=== PATIENT | female | born 1970 | race Caucasian/White ===

== ENCOUNTER 2022-12-28 08:20 | Outpatient (RCR) | payer BC, SELFPAY | END 2023-01-20 16:38 | disposition home or self-care (01) | LOC: PT 08:20 | PROVIDERS: PCP Nurse Practitioner Family; Visit Provider Podiatrist Foot & Ankle Surgery | DX: M19.071 Primary osteoarthritis, right ankle and foot (principal); M25.371 Other instability, right ankle | CPT/HCPCS: 97110; 97140; 97530 ==

== ENCOUNTER 2023-02-13 10:09 | Outpatient (OUT) | payer SELFPAY ==
--- NOTE | 2023-02-13 10:12 | XR_ITS ---
[address] [address] Patient Name: LAWRENCE LIZAMA MRN: [id number] date: 1970 Sex: F Assigned Patient Location: [facility] Current Patient Location: [facility] Accession/Order Number: [id number] Exam Date: 02/13/2023 10:12 Report Date: 02/13/2023 19:02 At the request of: LOS VENTURA Procedure: XR ankle RT min 3V PROCEDURE: XR ankle RT min 3V, XR foot RT min 3V COMPARISON: 12/19/2022 HISTORY: RIGHT ANKLE PAIN FINDINGS: BONES:Stable subtalar fusion with 2 cannulated screws. Stable talonavicular fusion with a single screw. Fusion of the medial hindfoot midfoot with a medial plate and screws. Surgical staple base of the second tarsometatarsal joint SOFT TISSUES:Moderate diffuse ankle soft tissue swelling EFFUSION:None visible. OTHER: Negative. XR/XR ankle RT min 3V IMPRESSION: Stable postsurgical changes Electronically authenticated by: BARBARA HERNANDEZ Date: 02/13/2023 19:02
--- NOTE | 2023-02-13 10:12 | XR_ITS ---
[address] [address] Patient Name: LAWRENCE LIZAMA MRN: [id number] date: 1970 Sex: F Assigned Patient Location: [facility] Current Patient Location: [facility] Accession/Order Number: [id number] Exam Date: 02/13/2023 10:12 Report Date: 02/13/2023 19:02 At the request of: LOS VENTURA Procedure: XR foot RT min 3V PROCEDURE: XR ankle RT min 3V, XR foot RT min 3V COMPARISON: 12/19/2022 HISTORY: RIGHT ANKLE PAIN FINDINGS: BONES:Stable subtalar fusion with 2 cannulated screws. Stable talonavicular fusion with a single screw. Fusion of the medial hindfoot midfoot with a medial plate and screws. Surgical staple base of the second tarsometatarsal joint SOFT TISSUES:Moderate diffuse ankle soft tissue swelling EFFUSION:None visible. OTHER: Negative. XR/XR foot RT min 3V IMPRESSION: Stable postsurgical changes Electronically authenticated by: BARBARA HERNANDEZ Date: 02/13/2023 19:02
== END 2023-02-13 10:10 | disposition home or self-care (01) ==
LOC: RAD 10:09
PROVIDERS: PCP Nurse Practitioner Family; Visit Provider Podiatrist Foot & Ankle Surgery
DX: M19.071 Primary osteoarthritis, right ankle and foot (principal)
CPT/HCPCS: 73610; 73630

== ENCOUNTER 2023-02-21 21:46 | Emergency (ER) | payer SELFPAY ==
[2023-02-21 21:51] VITALS: BP 151/90; PULSE 88; RESP 22; TEMP 36.4; O2SAT 95; BMI 31.9
--- NOTE | 2023-02-21 22:05 | ECG_ITS ---
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
--- NOTE | 2023-02-21 22:27 | ED.ANXIETY1 ---
HPI - Anxiety General Chief Complaint: Anxiety Stated Complaint: ANXIETY Time Seen by Provider: 02/21/23 22:04 Source: patient Mode of arrival: walk-in Limitations: no limitations History of Present Illness HPI narrative: 53-year-old female with a history of anxiety and insomnia presents for evaluation stating that she is out of her amitriptyline 100 mg and feels like she is having withdrawal symptoms with dizziness, sweatiness, nausea and one episode of vomiting. She took her last dose last night around 9 PM. She states that she did not have any money to get it filled but it is at the pharmacy and she has money now and will get it filled tomorrow. She denies any suicidal or homicidal ideation. She refuses any Zofran stating that she has at home. She does request some clear soda to drink. She has no chest pain, shortness of breath, dizziness syncope abdominal pain. Related Data Allergies Allergy/AdvReac Type Severity Reaction Status Date / Time No Known Drug Allergies Allergy Verified 02/21/23 21:57 Review of Systems ROS Status of ROS 10 or more systems reviewed and unremarkable except as noted in history and below Exam Narrative Exam Narrative: Nurses note and vital signs reviewed and patient is not hypoxic. General: Anxious, nontoxic female, no respiratory distress, no active vomiting Skin: Warm, dry, no pallor noted. There is no rash noted. Head: Normocephalic, atraumatic Eye: Normal conjunctiva, no drainage, EOMI. PERRL Ears, Nose, Mouth, and Throat: oral mucosa is moist. Cardiovascular: Regular Rate and Rhythm S1S2, no murmur, rub or gallop Respiratory: Patient is in no distress, no accessory muscle use, lungs are clear to auscultation, no wheezing, rales or rhonchi, pulse ox normal at 95% on RA Back: non-tender, no CVA tenderness bilaterally to percussion. GI: Normal bowel sounds, no tenderness to palpation, no masses appreciated. No rebound, guarding, or rigidity noted. Musculoskeletal: The patient has no evidence of calf tenderness, no pitting edema, symmetrical pulses noted bilaterally Neurological: A&O x4, normal speech Psychiatric: Cooperative Constitutional Vital Signs, click to edit/add: Last Vital Signs Temp 97.5 F L 02/21/23 21:51 Pulse 93 H 02/21/23 22:58 Resp 2 L 07/26/23 22:58 BP 110/80 H 02/21/23 22:58 Pulse Ox 95 02/21/23 22:58 O2 Del Method Room Air 02/21/23 22:58 Course Vital Signs Vital signs: Vital Signs Temperature 97.5 F L 02/21/23 21:51 Pulse Rate 88 02/21/23 21:51 Respiratory Rate 22 02/21/23 21:51 Blood Pressure 151/90 H 02/21/23 21:51 Pulse Oximetry 95 02/21/23 21:51 Oxygen Delivery Method Room Air 02/21/23 21:51 Temperature 97.5 F L 02/21/23 21:51 Pulse Rate 93 H 02/21/23 22:58 Respiratory Rate 2 L 02/21/23 22:58 Blood Pressure 110/80 H 02/21/23 22:58 Pulse Oximetry 95 02/21/23 22:58 Oxygen Delivery Method Room Air 02/21/23 22:58 MDM - Anxiety MDM Narrative Medical decision making narrative: This 53-year-old female with a history of anxiety and insomnia who takes venlafaxine as well as amitriptyline presents for evaluation stating that she feels like she is having withdrawal symptoms from her amitriptyline and is clammy, sweaty, anxious and had one episode of nausea with vomiting. Her vital signs are stable. Her lungs are clear. She denies any suicidal or homicidal ideation. She states that she does have a prescription for her amitriptyline at the pharmacy and has the money to pick it up tomorrow. She was given one dose of amitriptyline to take at home for her anxiety and insomnia and discharged home. A chest x-ray was performed at triage due to her complaint of feeling clammy and sweaty. His is normal sinus rhythm at 80 beats for minute with no acute changes. ECG Data Attestation: I personally reviewed and interpreted this ECG as follows: (Sinus rhythm at 80 beats for minute, low voltage in chest leads, no acute ST segment elevation or T-wave inversion) Discharge Plan Discharge Chief Complaint: Anxiety Clinical Impression: Medication withdrawal, Acute anxiety Patient Disposition: Home, Self-Care Time of Disposition Decision: 22:30 Condition: Good Mode of Transportation: Private Vehicle Instructions: Anxiety (ED) Additional Instructions: Continue your prescribed medications tomorrow after getting them refilled. Stand Alone Forms: Portal Instructions Referrals: KEL MONTGOMERY [Primary Care Provider] - 1 week Discharge Date/Time: 02/21/23 23:00
[2023-02-21 22:35] VITALS: PULSE 81
[2023-02-21] MEDS: AMITRIPTYLINE HCL 50 MG TABLET 100 MG PO (22:52)
[2023-02-21 22:58] VITALS: BP 110/80; PULSE 93; RESP 2; O2SAT 95
== END 2023-02-21 23:00 | disposition home or self-care (01) ==
PROVIDERS: Emergency Provider Emergency Medicine; PCP Nurse Practitioner Family
DX: F19.239 Other psychoactive substance dependence with withdrawal, unspecified (principal); F41.9 Anxiety disorder, unspecified; G47.00 Insomnia, unspecified
CPT/HCPCS: 93005; 99283

== ENCOUNTER 2023-02-26 16:41 | Emergency (ER) | payer SELFPAY ==
[2023-02-26] VITALS (17 sets, daily range): BP systolic 102–157; BP diastolic 66–131; PULSE 72–121; RESP 9–27; TEMP 36.5; O2SAT 99–100; BMI 31.9
--- NOTE | 2023-02-26 17:09 | XR_ITS ---
The [address] [address] Patient Name: LAWRENCE LIZAMA MRN: [id number] date: 1970 Sex: F Assigned Patient Location: ER Current Patient Location: ER Accession/Order Number: [id number] Exam Date: 02/26/2023 17:30 Report Date: 02/26/2023 17:52 At the request of: MARLENE JOAQUIN Procedure: XR chest 1V EXAM: XR chest 1V HISTORY: chest pain COMPARISON: None. TECHNIQUE: AP portable study FINDINGS: The cardiovascular silhouette is normal. Lung monk are well-expanded and clear. Pleural spaces are clear. The bony structures are unremarkable. XR/XR chest 1V IMPRESSION: No evidence for acute cardiopulmonary disease. Electronically authenticated by: Elizabeth INFANTE Date: 02/26/2023 17:52
--- NOTE | 2023-02-26 17:09 | ECG_ITS ---
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
[2023-02-26 17:52] LABS: Basophils Percent Auto 0.4 % (0.2-2.0); Eosinophils Percent Auto 0.1 % (0.9-7.0); Hematocrit 45.3 % (36.0-48.0); Hemoglobin 15.1 g/dL (12.0-16.0); Immature Granulocytes Abs Auto 0.01 10^3/uL (0.00-0.03); Immature Granulocytes Pct Auto 0.1 % (0.0-0.5); Lymphocytes Percent Auto 29.9 % (20.5-60.0); Mean Corpuscular HGB Conc 33.3 g/dL (29.9-35.2); Mean Corpuscular Hemoglobin 27.3 pg (26.7-34.0); Mean Corpuscular Volume 81.8 fL (81.0-99.0); Mean Platelet Volume 10.2 fL (9.5-13.5); Monocytes Absolute Auto 0.5 10^3/uL (0.3-0.8); Monocytes Percent Auto 7.6 % (1.7-12.0); Neutrophils Absolute Auto 4.1 10^3/uL (1.4-6.5); Neutrophils Percent Auto 61.9 % (43.0-75.0); Platelet Count 392 10^3/uL (150-450); Red Blood Count 5.54 10^6/uL (4.20-5.40); Red Cell Distribution Width 13.1 % (11.0-15.0); White Blood Count 6.7 10^3/uL (4.0-11.0)
[2023-02-26 18:10] LABS: Alanine Aminotransferase 18 U/L (14-59); Albumin Globulin Ratio 1.3; Albumin Level 4.7 g/dL (3.4-5.0); Alkaline Phosphatase 130 U/L (46-116); Anion Gap 17.9; Aspartate Amino Transferase 23 U/L (15-37); BUN Creatinine Ratio 16.6; Bilirubin Total 0.4 mg/dL (0.2-1.0); Calcium 10.3 mg/dL (8.5-10.1); Carbon Dioxide 22.1 mmol/L (21.0-32.0); Chloride 95 mmol/L (98-107); Estimated GFR (African America 40 (>=60); Estimated GFR (Non-African Ame 33 (>=60); Globulin 3.6 g/dL; Glucose 74 mg/dL (74-106); Sodium 131 mmol/L (136-145); Total Protein 8.3 g/dL (6.4-8.2)
[2023-02-26 18:12] LABS: Troponin I High Sensitivity 7.7 pg/mL (4.0-51.3)
[2023-02-26] MEDS: 0.9 % SODIUM CHLORIDE 1,000 ML 1000 ML IV (18:35)
--- NOTE | 2023-02-26 18:36 | ED.GENADUL1 ---
HPI - General Adult General Chief complaint: Chest Pain Stated complaint: headache Time Seen by Provider: 02/26/23 17:36 Source: patient Mode of arrival: walk-in Limitations: no limitations History of Present Illness HPI narrative: Patient is a 3 day history of lightheaded, dizziness, midsternal chest pain, pain with deep inspiration, sore throat, sweatiness to her upper lip and neck. No sick contacts that we are aware of. Patient stated that she had similar symptoms several years ago, approximately 3-5 years ago, she was in [place] and she was having chest pain at that time. Patient stated that she was admitted to the hospital, and they ended up performing a cardiac catheter that showed no acute narrowing or findings. Patient states she has not been eating or drinking as much last 2 or 3 days, she's had nothing to eat today, but she did have Powerade and water today. Patient states she has a history of acid reflux, she does say medication for that. She's had a EGD before as well. Patient's nurse practitioner is Kel Avila. Patient has no other acute complaints, no recent traveling, no sick contacts. Patient has not been coughing. Patient's had no heavy lifting, twisting or turning. She's had no trauma. . All systems are negative except as noted/marked. All systems reviewed and otherwise negative. . Nurses note and vital signs reviewed and patient is not hypoxic. General: The patient appears well and in no apparent distress. Patient is resting comfortably on cart. Patient is not toxic, lethargic, or listless Skin: Warm, dry, no pallor noted. There is no rash noted. No petechiae, purpura. Scars to her right foot from previous surgeries, no signs of infection. Head: Normocephalic, atraumatic Eye: Normal conjunctiva, no drainage, EOMI. PERRL Ears, Nose, Mouth, and Throat: oral mucosa is moist. Nares patent. Mouth without vesicles. Cardiovascular: Regular Rate and Rhythm, no murmur, gallop, rub; Patient does have reproducible sternal and parasternal tenderness to palpation to the anterior chest wall, no rash. With range of motion of both shoulders, and taking both arms and abducting across her chest, it reproduces the pain to the chest wall anteriorly. Patient displaying signs and symptoms of costochondritis. Respiratory: Patient is in no distress, no accessory muscle use, lungs are clear to auscultation, no wheezing, rales or rhonchi Back: non-tender, no CVA tenderness bilaterally to percussion. No CT LS midline pain GI: soft, no tenderness to palpation, no masses appreciated. No rebound, guarding, or rigidity noted. No flank pain bilateral, No distention Musculoskeletal: Patient has full range of motion of all of the extremities, no motor, sensory, or focal neurological deficits Neurological: A&O x3, normal speech Psychiatric: Cooperative Related Data Home Medications Medication Instructions Recorded Confirmed amitriptyline 100 mg tablet 100 mg PO QDAY 02/26/23 02/26/23 lisinopril 20 mg tablet 20 mg PO QDAY 02/26/23 02/26/23 venlafaxine 75 mg capsule,extended 75 mg PO QDAY 02/26/23 02/26/23 release 24 hr Previous Rx's Medication Instructions Recorded ondansetron 4 mg disintegrating 4 mg PO Q4H PRN nausea and 02/26/23 tablet vomiting 3 days #6 tabs Allergies Allergy/AdvReac Type Severity Reaction Status Date / Time Latex, Natural Rubber Allergy Severe Rash Verified 02/26/23 16:56 PFSH PFSH Social History Smoking status: Former smoker Exam Constitutional Vital Signs, click to edit/add: Last Vital Signs Temp 97.7 F 02/26/23 16:56 Pulse 86 02/26/23 18:50 Resp 9 L 02/26/23 18:50 BP 115/80 02/26/23 18:31 Pulse Ox 99 02/26/23 17:02 O2 Del Method Room Air 02/26/23 16:56 Course Vital Signs Vital signs: Vital Signs Temperature 97.7 F 02/26/23 16:56 Pulse Rate 92 H 02/26/23 16:56 Respiratory Rate 16 02/26/23 16:56 Blood Pressure 102/75 02/26/23 16:56 Pulse Oximetry 100 02/26/23 16:56 Oxygen Delivery Method Room Air 02/26/23 16:56 Temperature 97.7 F 02/26/23 16:56 Pulse Rate 86 02/26/23 18:50 Respiratory Rate 9 L 02/26/23 18:50 Blood Pressure 115/80 02/26/23 18:31 Pulse Oximetry 99 07/31/23 17:02 Oxygen Delivery Method Room Air 02/26/23 16:56 Medical Decision Making Lab Data Lab results reviewed: Yes I reviewed the patient's lab results Labs: Lab Results 02/26/23 Range/Units 17:15 WBC 6.7 (4.0-11.0) 10^3/uL RBC 5.54 H (4.20-5.40) 10^6/uL Hgb 15.1 (12.0-16.0) g/dL Hct 45.3 (36.0-48.0) % MCV 81.8 (81.0-99.0) fL MCH 27.3 (26.7-34.0) pg MCHC 33.3 (29.9-35.2) g/dL RDW 13.1 (11.0-15.0) % Plt Count 392 (150-450) 10^3/uL MPV 10.2 (9.5-13.5) fL Neut % (Auto) 61.9 (43.0-75.0) % Lymph % (Auto) 29.9 (20.5-60.0) % [place] % (Auto) 7.6 (1.7-12.0) % Eos % (Auto) 0.1 L (0.9-7.0) % Baso % (Auto) 0.4 (0.2-2.0) % Neut # (Auto) 4.1 (1.4-6.5) 10^3/uL Lymph # (Auto) 2.0 (1.2-3.8) 10^3/uL [place] # (Auto) 0.5 (0.3-0.8) 10^3/uL Eos # (Auto) 0.0 (0.0-0.7) 10^3/uL Baso # (Auto) 0.0 (0.0-0.1) 10^3/uL Abs Immat Gran (auto) 0.01 (0.00-0.03) 10^3/uL Imm/Tot Granulo (auto) 0.1 (0.0-0.5) % Sodium 131 L (136-145) mmol/L Potassium 4.0 (3.5-5.1) mmol/L Chloride 95 L (98-107) mmol/L Carbon Dioxide 22.1 (21.0-32.0) mmol/L Anion Gap 17.9 BUN 27.0 H (7.0-18.0) mg/dL Creatinine 1.63 H (0.55-1.02) mg/dL Est GFR ( Amer) 40 L (>=60) Est GFR (Non-Af Amer) 33 L (>=60) BUN/Creatinine Ratio 16.6 Glucose 74 (74-106) mg/dL Calcium 10.3 H (8.5-10.1) mg/dL Total Bilirubin 0.4 (0.2-1.0) mg/dL AST 23 (15-37) U/L ALT 18 (14-59) U/L Alkaline Phosphatase 130 H (46-116) U/L Troponin I High Sens 7.7 (4.0-51.3) pg/mL Total Protein 8.3 H (6.4-8.2) g/dL Albumin 4.7 (3.4-5.0) g/dL Globulin 3.6 g/dL Albumin/Globulin Ratio 1.3 Patient was given 1 L of IV fluid to help replace sodium and also help with elevation of BUN/creatinine. Patient understands importance of hydration in the next 2 or 3 days, especially Gatorade or Powerade. Patient was told by 2 or 3 large bottles of the Gatorade and drink them in the next 2 days. Patient is to increase water as well. Patient will follow-up with her nurse practitioner next week as scheduled appointment. Patient is very clear that if she does not increase her fluids and Gatorade or prior to next couple of days, she will be returning back to the Emergency Room because her symptoms will get worse and she'll be admitted to the hospital for IV fluids. Discharge Plan Discharge Chief Complaint: Chest Pain Clinical Impression: Dizziness, Dysphagia, Dyspnea, Atypical chest pain, Hyponatremia Patient Disposition: Home, Self-Care Condition: Good Prescriptions / Home Meds: New ondansetron 4 mg tablet,disintegrating 4 mg PO Q4H PRN (Reason: nausea and vomiting) 3 Days Qty: 6 0RF No Action amitriptyline 100 mg tablet 100 mg PO QDAY lisinopril 20 mg tablet 20 mg PO QDAY venlafaxine 75 mg capsule,extended release 24hr 75 mg PO QDAY Instructions: Chest Pain (ED), Dyspnea (ED), Lightheadedness (ED), Dizziness (ED), Chest Wall Pain (ED), Dysphagia (ED) Additional Instructions: Increase fluids at home, or Powerade, Gatorade. continue antacid medication. Drink 2 or 3 large Gatorade or Powerade bottles in the next 2 or 3 days along with drinking at least 8 ounces of water a day for the next 2 or 3 days. Use Maalox or Mylanta at home if needed for any type of acid reflux or heartburn. Follow up with nurse practitioner next week for additional follow-up if needed. Stand Alone Forms: Portal Instructions Referrals: KEL MONTGOMERY [Primary Care Provider] - 1 week Discharge Date/Time: 02/26/23 19:49
== END 2023-02-26 19:49 | disposition home or self-care (01) ==
LOC: ER 18:41
PROVIDERS: Emergency Provider Emergency Medicine; PCP Nurse Practitioner Family
DX: R07.89 Other chest pain (principal); E87.1 Hypo-osmolality and hyponatremia; R42 Dizziness and giddiness; R13.10 Dysphagia, unspecified; R06.00 Dyspnea, unspecified; Z79.899 Other long term (current) drug therapy; Z87.891 Personal history of nicotine dependence
CPT/HCPCS: 36415; 36416; 71045; 80053; 82948; 84484; 85025; 93005; 99285

== ENCOUNTER 2023-05-22 15:30 | Outpatient (OUT) | payer SELFPAY ==
--- NOTE | 2023-05-22 | XR_ITS ---
The [address] [address] Patient Name: LAWRENCE LIZAMA MRN: [id number] date: 1970 Sex: F Assigned Patient Location: [facility] Current Patient Location: [facility] Accession/Order Number: [id number] Exam Date: 05/22/2023 15:45 Report Date: 05/24/2023 06:45 At the request of: LOS VENTURA Procedure: XR foot RT min 3V PROCEDURE: XR ankle RT min 3V, XR foot RT min 3V HISTORY: RIGHT ANKLE PAIN , right forefoot reconstruction COMPARISON: XR ankle right 02/13/2023 FINDINGS: BONES:Talocalcaneal fusion. Medial midfoot fusion. No hardware fracture or loosening. No bone fracture dislocation. Prior bone harvesting from distal tibia. SOFT TISSUES:Soft tissue swelling anterior to the ankle. EFFUSION:None visible. OTHER: Negative. XR/XR foot RT min 3V IMPRESSION: 1. Stable surgical changes without evidence of hardware failure or change in alignment. 2. No new or acute findings to account for patient's symptoms. Electronically authenticated by: TERI KAY Date: 05/24/2023 06:45
--- NOTE | 2023-05-22 | XR_ITS ---
The [address] [address] Patient Name: LAWRENCE LIZAMA MRN: [id number] date: 1970 Sex: F Assigned Patient Location: [facility] Current Patient Location: [facility] Accession/Order Number: [id number] Exam Date: 05/22/2023 15:38 Report Date: 05/24/2023 06:45 At the request of: LOS VENTURA Procedure: XR ankle RT min 3V PROCEDURE: XR ankle RT min 3V, XR foot RT min 3V HISTORY: RIGHT ANKLE PAIN , right forefoot reconstruction COMPARISON: XR ankle right 02/13/2023 FINDINGS: BONES:Talocalcaneal fusion. Medial midfoot fusion. No hardware fracture or loosening. No bone fracture dislocation. Prior bone harvesting from distal tibia. SOFT TISSUES:Soft tissue swelling anterior to the ankle. EFFUSION:None visible. OTHER: Negative. XR/XR ankle RT min 3V IMPRESSION: 1. Stable surgical changes without evidence of hardware failure or change in alignment. 2. No new or acute findings to account for patient's symptoms. Electronically authenticated by: TERI KAY Date: 05/24/2023 06:45
== END 2023-05-22 15:31 | disposition home or self-care (01) ==
LOC: RAD 15:30
PROVIDERS: PCP Nurse Practitioner Family; Visit Provider Podiatrist Foot & Ankle Surgery
DX: M25.371 Other instability, right ankle (principal); M21.171 Varus deformity, not elsewhere classified, right ankle
CPT/HCPCS: 73610; 73630

== ENCOUNTER 2023-05-31 08:49 | Outpatient (OUT) | payer SELFPAY ==
--- NOTE | 2023-05-31 09:18 | CT_ITS ---
[address] [address] Patient Name: LAWRENCE LIZAMA MRN: [id number] date: 1970 Sex: F Assigned Patient Location: CT Current Patient Location: CT Accession/Order Number: [id number] Exam Date: 05/31/2023 09:12 Report Date: 05/31/2023 13:23 At the request of: LOS VENTURA Procedure: CT ankle RT wo con EXAMINATION: CT ankle RT wo con HISTORY: Mid Foot Degenerative Joint Disease, Ankle Impingement COMPARISON: No relevant comparison available. TECHNIQUE: Multi-planar CT images were created without IV contrast. Dose reduction techniques were achieved by using automated exposure control and/or adjustment of mA and/or kV according to patient size and/or use of iterative reconstruction technique. FINDINGS: BONES: No acute fracture or dislocation. Remote healed fracture distal fibular diaphysis. Moderate to severe diffuse degenerative changes. Subtalar fusion with 2 screws. Dorsal fusion of the midfoot hindfoot with a plate and screws. Talonavicular fusion. No definite mechanical failure. SOFT TISSUES: Diffuse soft tissue swelling EFFUSION: None visible. OTHER: Negative. CT/CT ankle RT wo con IMPRESSION: Stable degenerative and postsurgical changes Electronically authenticated by: BARBARA HERNANDEZ Date: 05/31/2023 13:23
== END 2023-05-31 08:50 | disposition home or self-care (01) ==
LOC: CT 08:49
PROVIDERS: PCP Nurse Practitioner Family; Visit Provider Podiatrist Foot & Ankle Surgery
DX: M25.871 Other specified joint disorders, right ankle and foot (principal); M19.071 Primary osteoarthritis, right ankle and foot
CPT/HCPCS: 73700

== ENCOUNTER 2023-08-01 11:47 | Outpatient (OUT) | payer SELFPAY ==
--- NOTE | 2023-08-01 | XR_ITS ---
The [address] [address] Patient Name: LAWRENCE LIZAMA MRN: [id number] date: 1970 Sex: F Assigned Patient Location: [facility] Current Patient Location: [facility] Accession/Order Number: [id number] Exam Date: 08/01/2023 11:55 Report Date: 08/01/2023 12:53 At the request of: ARIE PARKINSON Procedure: XR ankle RT min 3V PROCEDURE: XR ankle RT min 3V COMPARISON: 05/22/2023 HISTORY: RIGHT ANKLE PAIN FINDINGS: BONES:Stable postsurgical changes with subtalar and midfoot hindfoot fusion. No acute fracture, dislocation or mechanical failure stable degenerative changes . SOFT TISSUES:Diffuse soft tissue swelling, unchanged EFFUSION:None visible. OTHER: Negative. XR/XR ankle RT min 3V IMPRESSION: Stable degenerative and postsurgical changes Electronically authenticated by: BARBARA HERNANDEZ Date: 08/01/2023 12:53
--- OUTSIDE RECORDS SUMMARY | 2023-08-01 11:50 | XMS_ITS | CCD ---
Author Name Unknown Address [address] [place] [address] Organization [facility] Care Team Providers Care Urologist Md Name Role Phone Rai Alvarenga Unavailable KEL MONTGOMERY Primary Care Unavailable LOS VENTURA Attending Unavailable LOS VENTURA Consulting Unavailable LOS VENTURA Admitting Unavailable DALTON ALVARENGA Consulting Unavailable KEL MONTGOMERY Primary Care Unavailable LOS VENTURA Admitting Unavailable LOS VENTURA Attending Unavailable DR MELISSA NONE LISTED Primary Care Unavaila laura HERNANDEZ, DR BARBARA Greer Consulting Unavailable SAMIERERandy, DR DANA Martinez Admitting Unavailable SAMIERERandy, DR DANA Martinez Attending Unavailable MULUGETA, DR DANA Martinez Consulting Unavailable LOS VENTURA Consulting Unavailable EZIO ., MARY MIKE Consulting Unavailable ZAC II, JODI Consulting Unavailable BORIS PITTMAN Consulting Unavailable KEL MONTGOMERY Primary Care Unavailable ALEXANDER ., DR JASIEL Hutchinson Admitting Unavaila ble ALEXANDER ., DR JASIEL Hutchinson Attending Unavaila ble ALEXANDER ., DR JASIEL Hutchinson Consulting UnavailKEL Lai Primary Care Unavailable KEL MONTGOMERY Admitting Unavailable KEL MONTGOMERY Attending Unavailable ADRIANA KIM Admitting Unavailable DR MELISSA NONE LISTED Primary Care Unavaila ble DAVID, DR BARBARA Greer Consulting Unavailable ADRIANA KIM Attending Unavailable ADRIANA KIM Consulting Unavailable KEL MONTGOMERY Primary Care Unavailable ALEXANDER ., DR JASIEL Hutchinson Admitting Unavaila ble GRDAVEY ., DR JASIEL Hutchinson Attending Unavaila ble ALEXANDER ., DR JASIEL Hutchinson Consulting Unavaila JASIEL Avealr Consulting Unavailable ESPERANZA LAMAR Consulting Unavailable SUSIE KEMP Consulting Unavailable KEL MONTGOMERY Primary Care Unavailable ADRIANA KIM Admitting Unavailable ADRIANA KIM Attending Unavailable ADRIANA KIM Consulting Unavailable LARISSA CHOI Consulting Unavailable MELISSA, NONE LISTED Primary Care Unavaila ble HIGHLANDER, PETER Bibi Consulting Unavailable HIGHLANDER, PETER D Admitting Unavailable HIGHLANDER, LOS Mtz Attending Unavailable MARIOLA INFANTE Consulting Unavailable REQUEST, DR NONE LISTED Primary Care Unavaila ble HIGHLANDER, PETER D Admitting Unavailable HIGHLANDER, PETER D Attending Unavailable ZIEBER, DR TERI Padilla Consulting Unavailable HIGHLANDER, LOS Mtz Consulting Unavailable REQUEST, DR NONE LISTED Primary Care Unavaila ble HOY ., DR BUTLER Consulting Unavailable HOY ., DR BUTLER Admitting Unavailable HOY ., DR BUTLER Attending Unavailable NEEL WEBBER Consulting Unavailable VALENTINA, KEL Primary Care Unavailable VALENTINA, KEL Admitting Unavailable VALENTINA, KEL Attending Unavailable VALENTINA, KEL Primary Care Unavailable VALENTINA, KEL Admitting Unavailable VALENTINA, KEL Attending Unavailable VALENTINA, KEL Consulting Unavailable COLETTE, RAI Admitting Unavailable COLETTE, RAI Attending Unavailable VALENTINA, KEL Primary Care Unavailable COLETTERAI Consulting Unavailable VALENTINA, KEL Primary Care Unavailable HIGHLANDER, PETER D Attending Unavailable HIGHLANDER, LOS D Consulting Unavailable HIGHLANDER, PETER D Admitting Unavailable VALENTINA, KEL Primary Care Unavailable HIGHLANDER, LOS D Attending Unavailable HIGHLANDER, PETER D Admitting Unavailable WEST, DR BARBARA Greer Consulting Unavailable HIGHLANDER, LOS Mtz Consulting Unavailable VALENTINA, KEL Primary Care Unavailable GRILLIS ., DR JASIEL Hutchinson Consulting Unavaila ble GRILLIS ., DR JASIEL Hutchinson Admitting Unavaila ble GRILLIS ., DR JASIEL Hutchinson Attending Unavaila ble VALENTINA, KEL Primary Care Unavailable GRILLIS ., DR JASIEL Hutchinson Admitting Unavaila ble GRILLIS ., DR JASIEL Hutchinson Attending Unavaila ble GRILLIS ., DR JASIEL Hutchinson Consulting Unavaila ble GIOVANNA, OLLIE JOY Consulting Unava ilESPERANZA Moody Consulting Unavailable VALENTINA, KEL Primary Care Unavailable HIGHLANDER, PETER D Attending Unavailable HIGHLANDER, LOS D Consulting Unavailable HIGHLANDER, PETER D Admitting Unavailable VALENTINA, KEL Primary Care Unavailable HIGHLANDER, PETER D Admitting Unavailable HIGHLANDER, PETER D Attending Unavailable VALENTINA, KEL Primary Care Unavailable HOY ., DR BUTLER Admitting Unavailable HOY ., DR BUTLER Attending Unavailable ADRIANA KIM Admitting Unavailable RAHUL, DR TERI Padilla Consulting Unavailable REQUEST, DR NONE LISTED Primary Care Unavaila ble ADRIANA KIM Attending Unavailable ADRIANA KIM Consulting Unavailable Allergies Allergy Classification Reported Allergen(s) Allergy Type Date of Onset Reaction(s) Facility (3 sources) Aspirin Drug Allergy Unknown [facility] Other (3 sources) Latex Propensity to adverse reactions Unknown [facility] Other (2 sources) Aspirin Drug Allergy [facility] (2 sources) Latex Drug allergy (disorder) [facility] Medications Current Medications Medication Drug Class(es) Dates Sig (Normalized) Sig (Original) amitriptyline hydrochloride 50 mg oral tablet (3 sources) Tricyclic Antidepressant take 1 tablet by mouth every twenty-four hours Amitriptyline HCl 50 MG 1 tablet at bedtime Orally Once a day Active cholecalciferol 1.25 mg oral capsule (2 sources) Vitamin D take 1 capsule by mouth every week Vitamin D3 1.25 MG (55494 UT) 1 capsule Orally once per week Active lisinopril 20 mg oral tablet (3 sources) Angiotensin Converting Enzyme Inhibitor take 1 tablet by mouth every twenty-four hours Lisinopril 20 MG 1 tablet Orally Once a day Active meloxicam 15 mg oral tablet (3 sources) Nonsteroidal Anti-inflammatory Drug take 1 tablet by mouth every twenty-four hours Meloxicam 15 MG 1 tablet Orally Once a day Active 24 hr venlafaxine 75 mg extended release oral capsule (6 sources) Serotonin and Norepinephrine Reuptake Inhibitor take 1 capsule by mouth every twenty-four hours Effexor XR 150 MG 1 capsule with food Orally Once a day Active take 1 capsule by mo uth every twenty-four hours Effexor XR 75 MG 1 capsule with food Orally Once a day Active Completed/Discontinued Medications Medication Drug Class(es) Dates Sig (Normalized) Sig (Original) triamcinolone acetonide 40 mg/ml injectable suspension (2 sources) Corticosteroid Start: 01-27-2022 Kenalog-40 Jan, 40 mg Problems Active Problems Problem Classification Problem Date Documented Da te Episodic/Chronic Acquired foot deformities (10 sources) Valgus deformity, not elsewhere classified, right ankle; Translations: [Varus deformity, not elsewhere classified, right ankle] Onset: 08-29-2022 Episodic Essential hypertension (1 source) Essential (primary) hypertension; Translations: [ESSENTIAL PRIMARY HYPERTENSION] Onset: 08-29-2022 Chronic Malaise and fatigue (1 source) Weakness; Translations: [WEAKNESS] Onset: 11-20-2022 Episodic Osteoarthritis (9 sources) Primary osteoarthritis, right ankle and foot; Translations: [Unspecified osteoarthritis, unspecified site] Onset: 05-08-2022 Chronic Other acquired deformities (1 source) Contracture, right ankle; Translations: [CONTRACTURE RIGHT ANKLE] Onset: 08-29-2022 Chronic Other ear and sense organ disorders (1 source) Unspecified hearing loss, unspecified ear; Translations: [UNS HEARING LOSS UNSPECIFIED EAR] Onset: 05-24-2022 Chronic Other gastrointestinal disorders (3 sources) Constipation; Translations: [Constipation, unspecified] Episodic Other gastrointestinal disorders (3 sources) Altered bowel function; Translations: [Change in bowel habit] Episodic Other nervous system disorders (3 sources) Carpal tunnel syndrome of left wrist; Translations: [Carpal tunnel syndrome, left upper limb] Chronic Other nervous system disorders (3 sources) Carpal tunnel syndrome of right wrist; Translations: [Carpal tunnel syndrome, right upper limb] Chronic Other nervous system disorders (3 sources) Carpal tunnel syndrome; Translations: [Carpal tunnel syndrome, unspecified upper limb] Chronic Other nervous system disorders (7 sources) Carpal tunnel syndrome, left upper limb; Translations: [CARPAL TUNNEL SYND LEFT UPPER LIMB] Onset: 10-31-2021 Resolved: 02-03-2022 Chronic Other nervous system disorders (1 source) Carpal tunnel syndrome, right upper limb Onset: 10-31-2021 Resolved: 10-31-2021 Chronic Other nervous system disorders (1 source) Unspecified abnormalities of gait and mobility; Translations: [UNS ABNORMALITIES GAIT AND MOBILITY] Onset: 11-20-2022 Episodic Other nervous system disorders (1 source) Other abnormalities of gait and mobility; Translations: [OTHER ABNORMALITIES GAIT AND MOBILITY] Onset: 11-20-2022 Episodic Other non-traumatic joint disorders (1 source) Other instability, right ankle; Translations: [OTHER INSTABILITY RIGHT ANKLE] Onset: 11-14-2022 Episodic Other nutritional; endocrine; and metabolic disorders (1 source) Obesity, unspecified; Translations: [OBESITY UNSPECIFIED] Onset: 05-24-2022 Chronic Unclassified (1 source) CONTACT W/AND (SUSP) EXPOS COVID-19; Translations: [CONTACT W/AND (SUSP) EXPOS COVID-19] Onset: 08-10-2022 Unclassified (1 source) ESOPHAGITIS UNSPEC WITHOUT BLEEDING; Translations: [ESOPHAGITIS UNSPEC WITHOUT BLEEDING] Onset: 05-24-2022 Past or Other Problems Problem Classification Problem Date Documented Da te Episodic/Chronic Abdominal pain (5 sources) Unspecified abdominal pain; Translations: [UNSPECIFIED ABDOMINAL PAIN] Onset: 05-17-2022 Episodic Gastritis and duodenitis (1 source) Other gastritis without bleeding; Translations: [OTHER GASTRITIS WITHOUT BLEEDING] Onset: 05-24-2022 Episodic Gastrointestinal hemorrhage (5 sources) Hemorrhage of anus and rectum; Translations: [HEMORRHAGE OF ANUS AND RECTUM] Onset: 05-24-2022 Episodic Genitourinary symptoms and ill-defined conditions (2 sources) Personal history of urinary (tract) infections; Translations: [Other difficulties with micturition] Onset: 08-29-2022 Episodic Nausea and vomiting (1 source) Nausea; Translations: [NAUSEA] Onset: 05-24-2022 Episodic Other acquired deformities (1 source) Mallet finger of left finger(s) Onset: 10-31-2021 Resolved: 10-31-2021 Episodic Other acquired deformities (1 source) Other specified acquired deformities of musculoskeletal system; Translations: [OTHER SPEC ACQ DEFORMITY MSK SYS] Onset: 08-29-2022 Episodic Other circulatory disease (4 sources) Other specified symptoms and signs involving the circulatory and respiratory systems; Translations: [OTH SPEC SX SIGNS INVLV CIRC RS] Onset: 06-28-2022 Episodic Other connective tissue disease (1 source) Trochanteric bursitis, right hip Onset: 01-27-2022 Resolved: 01-27-2022 Episodic Other connective tissue disease (1 source) Trigger finger, right middle finger Onset: 02-03-2022 Resolved: 02-03-2022 Episodic Other connective tissue disease (4 sources) Pain in right foot; Translations: [PAIN IN RIGHT FOOT] Onset: 09-07-2022 Episodic Other connective tissue disease (1 source) Posterior tibial tendinitis, right leg; Translations: [POSTERIOR TIBIAL TENDINITIS RT LEG] Onset: 08-29-2022 Episodic Other non-traumatic joint disorders (1 source) Pain in right hip Onset: 01-27-2022 Resolved: 01-27-2022 Episodic Other non-traumatic joint disorders (1 source) Other specified joint disorders, right ankle and foot; Translations: [OTHER SPEC JOINT D/O RT ANKLE FOOT] Onset: 08-29-2022 Episodic Residual codes; unclassified (2 sources) Other specified postprocedural states Onset: 01-27-2022 Resolved: 02-03-2022 Episodic Residual codes; unclassified (1 source) Acquired absence of both cervix and uterus; Translations: [ACQUIRED ABSENCE BOTH CERVIX AND UTERUS] Onset: 08-29-2022 Episodic Residual codes; unclassified (1 source) Acquired absence of uterus with remaining cervical stump; Translations: [ACQ ABSENCE UTRUS REM CERV STUMP] Onset: 05-24-2022 Episodic Screening and history of mental health and substance abuse codes (1 source) Personal history of nicotine dependence; Translations: [PERSONAL HISTORY OF NICOTINE DEPEND] Onset: 08-29-2022 Episodic Urinary tract infections (5 sources) Urinary tract infection, site not specified; Translations: [UTI SITE NOT SPECIFIED] Onset: 05-11-2022 Episodic Results Test Name Value Interpretation Reference Range Facility XR FOOT RT MIN 3 VIEWSon XR FOOT RT MIN 3 VIEWS EXAM: XR FOOT RT MIN 3 VIEWS HISTORY: Pain in right foot COMPARISON: 10/18/2022 TECHNIQUE: 4 view study FINDINGS: Again, there are findings associated with previous subtalar, talonavicular, and medial and middle naviculocuneiform arthrodesis. Alignment is unchanged compared with the study of one month ago. The subtalar joint is less well-defined than was seen previously. Mild osteopenia generally is noted. IMPRESSION: Stable appearance of the hindfoot/midfoot arthrodesis. Electronically authenticated by: Elizabeth INFANTE Date: 2022-11-10 23:57 Normal [facility] US KIDNEYS BLADDERon 023 US KIDNEYS BLADDER US KIDNEYS BLADDER EXAM DATE: 09/23/2022 6:34 AM [facility] COMPARISON: None available. INDICATION: Recurrent UTI. TECHNIQUE: Real-time ultrasound scanning of the kidneys and bladder was performed by the environmental specialist. Content Development Specialist static images are submitted for review. FINDINGS: Right Kidney: The right kidney measures 10.6 x 5 x 6.1 cm and has a volume of 186 mL. Normal echogenicity. No hydronephrosis. No shadowing calculi. No obvious contour deforming lesion or solid renal mass. Renal cortex measures 1.6 cm. Left Kidney: Views of the left kidney are extremely limited due to bowel gas. The left kidney measures approximately 11.7 x 5.2 x 4.3 cm and has a volume of 136 mL. No definite hydronephrosis. Renal cortex measures 1 cm. Bladder: Bladder volume measures up to 723 mL. Post void residual measures less than 1 mL. No focal or diffuse bladder wall thickening noted. Bilateral ureteral jets are visualized. IMPRESSION: 1. Limited views of the left kidney although no hydronephrosis is identified. Bilateral ureteral jets are visualized. 2. No significant post-void bladder residual. Electronically authenticated by: NEEL WEBBER Date: 2022-09-23 14:49 Normal [facility] CBC AUTO DIFFon 08-15-2022 BASO # 0.0 103/ul Normal 0.0-0.1 [facility] Comment on above: Performed By: #### C BC #### [facility] [address] [address] [address] Arianna Hamlin Basophils/100 WBC (Bld) 0.3 % Normal 0.2-2.0 [facility] Comment on above: Performed By: #### C BC #### [facility] [address] [address] [address] Arianna Hamlin EO # 0.0 103/ul Normal 0.0-0.7 [facility] Comment on above: Performed By: #### C BC #### [facility] [address] [address] [address] Arianna Hamlin Eosinophils/100 WBC (Bld) 0.1 % Critically low 0.9-7.0 [facility] Comment on above: Performed By: #### C BC #### [facility] [address] [address] [address] Arianna Hamlin Erythrocyte distribution width (RBC) [Ratio] 12.2 % Normal 11.0-15.0 [facility] Comment on above: Performed By: #### C BC #### [facility] [address] [place] [address] Dr. Arianna Hamlin Hematocrit (Bld) [Volume fraction] 35.9 % Critically low 36.0-48.0 [facility] Comment on above: Performed By: #### C BC #### [facility] [address] [address] [address] Arianna Hamlin Hemoglobin (Bld) [Mass/Vol] 12.0 g/dL Normal 12.0-16.0 [facility] Comment on above: Performed By: #### C BC #### [facility] [address] [address] [address] Arianna Hamlin IG # 0.02 10e3/ul Normal 0.00-0.03 [facility] Comment on above: Performed By: #### C BC #### [facility] [address] [place] [address] Dr. Arianna Hamlin IG % 0.3 % Normal 0.0-0.5 [facility] Comment on above: Performed By: #### C BC #### [facility] [address] [place] [address] Dr. Arianna Hamlin LYMPH # 1.8 103/ul Normal 1.2-3.8 [facility] Comment on above: Performed By: #### C BC #### [facility] [address] [place] [address] Dr. Arianna Hamlin Lymphocytes/100 WBC (Bld) 22.8 % Normal 20.5-60.0 [facility] Comment on above: Performed By: #### C BC #### [facility] [address] [place] [address] Dr. Arianna Hamlin MANUAL DIFF REQ NO Normal [facility] Comment on above: Performed By: #### C BC #### [facility] [address] [place] [address] Dr. Arianna Hamlin MCH (RBC) [Entitic mass] 27.8 pg Normal 26.7-34.0 [facility] Comment on above: Performed By: #### C BC #### [facility] [address] [place] [address] Dr. Arianna Hamlin MCHC (RBC) [Mass/Vol] 33.4 g/dL Normal 29.9-35.2 [facility] Comment on above: Performed By: #### C BC #### [facility] [address] [address] [address] Arianna Hamlin MCV (RBC) [Entitic vol] 83.1 fL Normal 81.0-99.0 [facility] Comment on above: Performed By: #### C BC #### [facility] [address] [address] [address] Arianna Hamlin MONO # 0.9 103/ul Critically high 0.3-0.8 [facility] Comment on above: Performed By: #### C BC #### [facility] [address] [address] [address] Arianna Hamlin Monocytes/100 WBC (Bld) 10.8 % Normal 1.7-12.0 [facility] Comment on above: Performed By: #### C BC #### [facility] [address] [place] [address] Dr. Arianna Hamlin NEUT # 5.2 103/ul Normal 1.4-6.5 [facility] Comment on above: Performed By: #### C BC #### [facility] [address] [place] [address] Dr. Arianna Hamlin Neutrophils/100 WBC (Bld) 65.7 % Normal 43.0-75.0 [facility] Comment on above: Performed By: #### C BC #### [facility] [address] [place] [address] Dr. Arianna Hamlin Platelet mean volume (Bld) [Entitic vol] 10.2 fL Normal 9.5-13.5 [facility] Comment on above: Performed By: #### C BC #### [facility] [address] [place] [address] Dr. Arianna Hamlin PLT 243 103/ul Normal 150-450 [facility] Comment on above: Performed By: #### C BC #### [facility] [address] [address] [address] Arianna Hamlin RBC 4.32 106/ul Normal 4.20-5.40 [facility] Comment on above: Performed By: #### C BC #### [facility] [address] [address] [address] Arianna Hamlin WBC 7.9 103/ul Normal 4.0-11.0 [facility] Comment on above: Performed By: #### C BC #### [facility] [address] [address] [address] Arianna Hamlin PROF CHEM 8 (BAS METB)on Anion gap [Moles/Vol] 10.8 mmol/L Normal [facility] Comment on above: Performed By: #### B MP #### [facility] [address] [place] [address] Dr. Arianna Hamlin Calcium [Mass/Vol] 9.0 mg/dL Normal 8.5-10.1 [facility] Comment on above: Performed By: #### B MP #### [facility] [address] [place] [address] Dr. Arianna Hamlin Chloride [Moles/Vol] 101 mmol/L Normal 98-107 [facility] Comment on above: Performed By: #### B MP #### [facility] [address] [place] [address] Dr. Arianna Hamlni CO2 [Moles/Vol] 30.8 mmol/L Normal 21.0-32.0 [facility] Comment on above: Performed By: #### B MP #### [facility] [address] [place] [address] Dr. Arianna Hamlin Creatinine [Mass/Vol] 0.79 mg/dL Normal 0.55-1.02 [facility] Comment on above: Performed By: #### B MP #### [facility] [address] [place] [address] Dr. Arianna Hamlin EGFR-AF [place] >60 Normal >=60 [facility] Comment on above: Performed By: #### B MP #### [facility] [address] [place] [address] Dr. Arianna Hamlin EGFR-NON AF [place] >60 Normal >=60 [facility] Comment on above: Performed By: #### B MP #### [facility] [address] [place] [address] Dr. Arianna Hamlin Glucose [Mass/Vol] 110 mg/dL Critically high 74-106 [facility] Comment on above: Performed By: #### B MP #### [facility] [address] [place] [address] Dr. Arianna Hamlin Potassium [Moles/Vol] 3.6 mmol/L Normal 3.5-5.1 [facility] Comment on above: Performed By: #### B MP #### [facility] [address] [address] [address] Arianna Hamlin Sodium [Moles/Vol] 139 mmol/L Normal 136-145 [facility] Comment on above: Performed By: #### B MP #### [facility] [address] [place] [address] Dr. Arianna Hamlin Urea nitrogen [Mass/Vol] 8.0 mg/dL Normal 7.0-18.0 [facility] Comment on above: Performed By: #### B MP #### [facility] [address] [place] [address] Dr. Arianna Hamlin Urea nitrogen/Creatinine [Mass ratio] 10.1 mg/mg Normal [facility] Comment on above: Performed By: #### B MP #### [facility] [address] [place] [address] Dr. Arianna Hamlin UA RANDOMon 08-15-2022 Bilirubin Ql (U) Negative Normal NEGATIVE [facility] Comment on above: Performed By: #### C BC #### [facility] [address] [place] [address] Dr. Arianna Hamlin Clarity (U) CLEAR Normal CLEAR [facility] Comment on above: Performed By: #### C BC #### [facility] [address] [place] [address] Dr. Arianna Hamlin Glucose Ql (U) Negative Normal NEGATIVE [facility] Comment on above: Performed By: #### C BC #### [facility] [address] [place] [address] Dr. Arianna Hamlin Hemoglobin Ql (U) Negative Normal NEGATIVE [facility] Comment on above: Performed By: #### C BC #### [facility] [address] [address] [address] Arianna Hamlin Ketones Ql (U) Negative Normal NEGATIVE [facility] Comment on above: Performed By: #### C BC #### [facility] [address] [place] [address] Dr. Arianna Hamlin LEUKOCYTES MODERATE Abnormal NEGATIVE [facility] Comment on above: Performed By: #### C BC #### [facility] [address] [place] [address] Dr. Arianna Hamlin Nitrite Ql (U) Negative Normal NEGATIVE [facility] Comment on above: Performed By: #### C BC #### [facility] [address] [place] [address] Dr. Arianna Hamlin pH (U) 7.0 [pH] Normal 5-9 [facility] Comment on above: Performed By: #### C BC #### [facility] [address] [place] [address] Dr. Arianna Hamlin SPEC GRAVITY 1.010 Normal 1.005-<=1.025 [facility] Comment on above: Performed By: #### C BC #### [facility] [address] [place] [address] Dr. Arianna Hamlin UA PROTEIN Negative Normal NEGATIVE/ TRACE [facility] Comment on above: Performed By: #### C BC #### [facility] [address] [place] [address] Dr. Arianna Hamlin Urobilinogen Qn (U) 0.2 {Ayden'U}/dL Normal 0.2 - 1. 0 [facility] Comment on above: Performed By: #### C BC #### [facility] [address] [place] [address] Dr. Arianna Hamlin XR FOOT RT 2Von 08-15-2022 XR FOOT RT 2V EXAM: XR FOOT RT 2V HISTORY: Pain COMPARISON: 06/20/2022 TECHNIQUE: 3 minutes of fluoroscopy. 41 fluoroscopic images FINDINGS: Fluoroscopic images demonstrate subtalar fusion with 2 screws. Medial midfoot hindfoot fusion utilizing a plate, surgical staple and multiple screws. Anatomic alignment. IMPRESSION: Intraprocedural images demonstrating medial foot and subtalar fusion Electronically authenticated by: BARBARA HERNANDEZ Date: 2022-08-15 08:59 Normal [facility] POINT OF CARE GLUCOSEon 07-30 Glucose [Mass/Vol] 138 mg/dL Critically high 74-106 [facility] Comment on above: Performed By: #### P OCGLUC #### [facility] [address] [place] [address] Dr. Arianna Hamlin Glucose [Mass/Vol] 94 mg/dL Normal 74-106 [facility] Comment on above: Performed By: #### P OCGLUC #### [facility] [address] [place] [address] Dr. Arianna Hamlin CBC AUTO DIFFon 08-08-2022 BASO # 0.0 103/ul Normal 0.0-0.1 [facility] Comment on above: Performed By: #### C BC #### [facility] [address] [place] [address] Dr. Arianna Hamlin Basophils/100 WBC (Bld) 0.7 % Normal 0.2-2.0 [facility] Comment on above: Performed By: #### C BC #### [facility] [address] [place] [address] Dr. Arianna Hamlin EO # 0.1 103/ul Normal 0.0-0.7 [facility] Comment on above: Performed By: #### C BC #### [facility] [address] [place] [address] Dr. Arianna Hamlin Eosinophils/100 WBC (Bld) 1.3 % Normal 0.9-7.0 [facility] Comment on above: Performed By: #### C BC #### [facility] [address] [place] [address] Dr. Arianna Hamlin Erythrocyte distribution width (RBC) [Ratio] 12.3 % Normal 11.0-15.0 [facility] Comment on above: Performed By: #### C BC #### [facility] [address] [place] [address] Dr. Arianna Hamlin Hematocrit (Bld) [Volume fraction] 38.4 % Normal 36.0-48.0 [facility] Comment on above: Performed By: #### C BC #### [facility] [address] [address] [address] Arianna Hamlin Hemoglobin (Bld) [Mass/Vol] 13.2 g/dL Normal 12.0-16.0 [facility] Comment on above: Performed By: #### C BC #### [facility] [address] [place] [address] Dr. Arianna Hamlin IG # 0.01 10e3/ul Normal 0.00-0.03 [facility] Comment on above: Performed By: #### C BC #### [facility] [address] [place] [address] Dr. Arianna Hamlin IG % 0.2 % Normal 0.0-0.5 [facility] Comment on above: Performed By: #### C BC #### [facility] [address] [place] [address] Dr. Arianna Hamlin LYMPH # 1.8 103/ul Normal 1.2-3.8 [facility] Comment on above: Performed By: #### C BC #### [facility] [address] [place] [address] Dr. Arianna Hamlin Lymphocytes/100 WBC (Bld) 30.8 % Normal 20.5-60.0 [facility] Comment on above: Performed By: #### C BC #### [facility] [address] [place] [address] Dr. Arianna Hamlin MANUAL DIFF REQ NO Normal [facility] Comment on above: Performed By: #### C BC #### [facility] [address] [place] [address] Dr. Arianna aHmlin MCH (RBC) [Entitic mass] 27.7 pg Normal 26.7-34.0 [facility] Comment on above: Performed By: #### C BC #### [facility] [address] [place] [address] Dr. Arianna Hamlin MCHC (RBC) [Mass/Vol] 34.4 g/dL Normal 29.9-35.2 [facility] Comment on above: Performed By: #### C BC #### [facility] [address] [address] [address] Arianna Hamlin MCV (RBC) [Entitic vol] 80.7 fL Critically low 81.0-99.0 [facility] Comment on above: Performed By: #### C BC #### [facility] [address] [address] [address] Arianna Hamlin MONO # 0.4 103/ul Normal 0.3-0.8 [facility] Comment on above: Performed By: #### C BC #### [facility] [address] [address] [address] Arianna Hamlin Monocytes/100 WBC (Bld) 7.1 % Normal 1.7-12.0 [facility] Comment on above: Performed By: #### C BC #### [facility] [address] [place] [address] Dr. Arianna Hamlin NEUT # 3.6 103/ul Normal 1.4-6.5 [facility] Comment on above: Performed By: #### C BC #### [facility] [address] [place] [address] Dr. Arianna Hamlin Neutrophils/100 WBC (Bld) 59.9 % Normal 43.0-75.0 [facility] Comment on above: Performed By: #### C BC #### [facility] [address] [place] [address] Dr. Arianna Hamlin Platelet mean volume (Bld) [Entitic vol] 9.5 fL Normal 9.5-13.5 [facility] Comment on above: Performed By: #### C BC #### [facility] [address] [place] [address] Dr. Arianna Hamlin PLT 248 103/ul Normal 150-450 [facility] Comment on above: Performed By: #### C BC #### [facility] [address] [place] [address] Dr. Arianna Hamlin RBC 4.76 106/ul Normal 4.20-5.40 [facility] Comment on above: Performed By: #### C BC #### [facility] [address] [place] [address] Dr. Arianna Hamlin WBC 5.9 103/ul Normal 4.0-11.0 [facility] Comment on above: Performed By: #### C BC #### [facility] [address] [place] [address] Dr. Arianna Hamlin Covid-19 PCR ([facility])on 07-30 SARS-CoV-2 (COVID-19) RNA RICHARD+probe Ql (Unsp spec) Not detected Normal NOT DETECTED [facility] Comment on above: Result Comment: This test is not yet approved or cleared by the [place] FDA. When there are no FDA-approved or cleared tests available, and other criteria are met, FDA can make tests available under an emergency access mechanism called an Emergency Use Authorization (EUA). The EUA for this test is supported by the Traffic Line Painter of Health and Human Service's (HHS's) declaration that circumstances exist to justify the emergency use of in vitro diagnostics for the detection and/or diagnosis of the virus that causes COVID-19. This EUA will remain in effect (meaning this test can be used) for the duration of the COVID-19 declaration justifying emergency of IVDs, unless it is terminated or revoked by FDA (after which the test may no longer be used). When diagnostic testing is negative, the possibility of a false negative should be considered in the context of a patient's recent exposures and the presence of clinical signs and symptoms consistent with SARS-CoV-2. Performed By: #### C VDTBH #### [facility] [address] [place] [address] Dr. Arianna Hamlin PROF CHEM 8 (BAS METB)on Anion gap [Moles/Vol] 10.1 mmol/L Normal [facility] Comment on above: Performed By: #### B MP #### [facility] [address] [place] [address] Dr. Arianna Hamlin Calcium [Mass/Vol] 9.2 mg/dL Normal 8.5-10.1 [facility] Comment on above: Performed By: #### B MP #### [facility] [address] [place] [address] Dr. Arianna Hamlin Chloride [Moles/Vol] 103 mmol/L Normal 98-107 [facility] Comment on above: Performed By: #### B MP #### [facility] [address] [address] [address] Arianna Hamlin CO2 [Moles/Vol] 30.7 mmol/L Normal 21.0-32.0 [facility] Comment on above: Performed By: #### B MP #### [facility] [address] [address] [address] Arianna Hamlin Creatinine [Mass/Vol] 0.86 mg/dL Normal 0.55-1.02 [facility] Comment on above: Performed By: #### B MP #### [facility] [address] [place] [address] Dr. Arianna Hamlin EGFR-AF [place] >60 Normal >=60 [facility] Comment on above: Performed By: #### B MP #### [facility] [address] [address] [address] Arianna Hamlin EGFR-NON AF [place] >60 Normal >=60 [facility] Comment on above: Performed By: #### B MP #### [facility] [address] [address] [address] Arianna Hamlin Glucose [Mass/Vol] 77 mg/dL Normal 74-106 [facility] Comment on above: Performed By: #### B MP #### [facility] [address] [address] [address] Arianna Hamlin Potassium [Moles/Vol] 3.8 mmol/L Normal 3.5-5.1 [facility] Comment on above: Performed By: #### B MP #### [facility] [address] [address] [address] Arianna Hamlin Sodium [Moles/Vol] 140 mmol/L Normal 136-145 [facility] Comment on above: Performed By: #### B MP #### [facility] [address] [address] [address] Arianna Hamlin Urea nitrogen [Mass/Vol] 8.0 mg/dL Normal 7.0-18.0 [facility] Comment on above: Performed By: #### B MP #### [facility] [address] [place], [place] [address] Dr. Arianna Hamlin Urea nitrogen/Creatinine [Mass ratio] 9.3 mg/mg Normal [facility] Comment on above: Performed By: #### B MP #### [facility] [address] [place], [place] [address] Dr. Arianna Hamlin Covid-19 PCR ([facility])on SARS-CoV-2 (COVID-19) RNA RICHARD+probe Ql (Unsp spec) Not detected Normal NOT DETECTED [facility] Comment on above: Result Comment: This test is not yet approved or cleared by the [place] FDA. When there are no FDA-approved or cleared tests available, and other criteria are met, FDA can make tests available under an emergency access mechanism called an Emergency Use Authorization (EUA). The EUA for this test is supported by the Traffic Line Painter of Health and Human Service's (HHS's) declaration that circumstances exist to justify the emergency use of in vitro diagnostics for the detection and/or diagnosis of the virus that causes COVID-19. This EUA will remain in effect (meaning this test can be used) for the duration of the COVID-19 declaration justifying emergency of IVDs, unless it is terminated or revoked by FDA (after which the test may no longer be used). When diagnostic testing is negative, the possibility of a false negative should be considered in the context of a patient's recent exposures and the presence of clinical signs and symptoms consistent with SARS-CoV-2. Performed By: #### B MP #### [facility] [address] [place], [place] [address] Dr. Arianna Hamlin MRI ANKLE RT WO CONon 2021 MRI ANKLE RT WO CON EXAM: MRI ANKLE RT W O CON HISTORY: Dysfunction of posterior tibial tendon. Chronic pain. Posterior tibial tendon dysfunction. Osteoarthritis. COMPARISON: Right foot x-rays 06/14/2022. TECHNIQUE: Multiplanar multisequence MRI of the right ankle was performed without contrast. This included axial T1, axial T2, oblique axial PD fat-sat, coronal T1, coronal T2, sagittal T1, sagittal T2, and sagittal PD fat-sat. FINDINGS: JOINTS: There is subchondral cystic change at the far medial talar dome and adjacent aspect of the medial malleolus. Small tibiotalar joint effusion. There is scattered marginal spur across the mid/hindfoot particularly at the naviculocuneiform articulation with patchy subchondral edema along the naviculocuneiform articulations, calcaneocuboid joint, and fourth and fifth TMT joints. Marginal spur and subchondral cystic change involving the anterior subtalar joint. The AP talocalcaneal angle measures 43 degrees. The tarsometatarsal alignment appears preserved on this non-weightbearing study. The interosseous component of the Lisfranc ligament is identified and is intact. BONES: Scattered bone marrow edema across the midfoot, as above. No fracture is identified. LIGAMENTS: There is thickening of the ATFL suggesting scar from prior sprain. The calcaneofibular and posterior talofibular ligament appears intact. Mild distortion of the deep deltoid ligament suggesting scar from prior sprain. The anterior and posterior tibiofibular ligaments are intact. TENDONS: There is thickening of the inframalleolar segment of the tibialis posterior tendon without appreciable tear. Mild associated fluid in the tibialis posterior tendon sheath. Otherwise, flexor, extensor, and peroneal tendons appear preserved. Achilles tendon is intact. SINUS TARSI: Complete replacement of the normal fat signal in the sinus tarsi. PLANTAR FASCIA: Small plantar calcaneal spur. No adjacent soft tissue edema or bone marrow edema. No fascial tear. TARSAL TUNNEL: No mass lesion in tarsal tunnel is identified. SOFT TISSUES: Mild soft tissue swelling of the anterior medial aspect of the ankle. IMPRESSION: 1. Abnormal AP talocalcaneal angle suggesting hindfoot valgus. 2. There is moderate osteoarthritis at the medial tibiotalar joint with subchondral edema and subchondral cystic change. Lesser scattered osteoarthritis across the mid/hindfoot, as above with patchy subchondral edema particularly at the naviculocuneiform articulation, calcaneocuboid joint, and fourth and fifth TMT joints. No fracture. 3. Tendinosis of the distal tibialis posterior tendon with mild tenosynovitis. No well-defined tendon tear. 4. There is scar along the ATFL and deep deltoid ligament suggesting prior sprains. 5. 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 6. Chronic plantar fasciitis. Electronically authenticated by: DALTON ALVARENGA Date: 2022-06-24 12:09 Normal [facility] H PYLORI TISSUEon 05-17-2022 H PYL TISSUE, UREASE Negative Normal NEGATIVE [facility] Comment on above: Performed By: #### B MP #### [facility] [address] [place], [place] [address] Dr. Arianna Hamlin Covid-19 PCR ([facility])on 04-29 SARS-CoV-2 (COVID-19) RNA RICHARD+probe Ql (Unsp spec) Not detected Normal NOT DETECTED [facility] Comment on above: Result Comment: This test is not yet approved or cleared by the [place] FDA. When there are no FDA-approved or cleared tests available, and other criteria are met, FDA can make tests available under an emergency access mechanism called an Emergency Use Authorization (EUA). The EUA for this test is supported by the Traffic Line Painter of Health and Human Service's (HHS's) declaration that circumstances exist to justify the emergency use of in vitro diagnostics for the detection and/or diagnosis of the virus that causes COVID-19. This EUA will remain in effect (meaning this test can be used) for the duration of the COVID-19 declaration justifying emergency of IVDs, unless it is terminated or revoked by FDA (after which the test may no longer be used). When diagnostic testing is negative, the possibility of a false negative should be considered in the context of a patient's recent exposures and the presence of clinical signs and symptoms consistent with SARS-CoV-2. Performed By: #### C VDTBH #### [facility] [address] [place] [address] Dr. Arianna Hamlin FLORINA by IFAon 05-11-2022 Antinuclear Antibodies, IFA Negative Normal [facility] Comment on above: Result Comment: Nega tive <1:80 Borderline 1:80 Positive >1:80 ICAP nomenclature: AC-0 For more information about Hep-2 cell patterns use ANApatterns.org, the official website for the International Consensus on Antinuclear Antibody (FLORINA) Patterns (ICAP). Performed By: #### B MP #### [facility] [address] [address] [address] Arianna Hamlin CULTURE URINEon 05-11-2022 CULTURE URINE Isolate 1 Escherichia coli >100,000 cfu/mL of ORGANISM 1 Escherichia coli ANTIBIOTIC M.I.C RX STATUS Ampicillin 4 S C Ampicillin/Sulbactam <=2 S C Piperacillin/Tazobacta m <=4 S C Cefazolin <=4 S C Ceftazidime <=1 S C Ceftriaxone <=1 S C Ertapenem <=0.5 S C Imipenem <=0.25 S C Amikacin <=2 S C Gentamicin <=1 S C Tobramycin <=1 S C Ciprofloxacin <=0.25 S C Levofloxacin <=0.12 S C Nitrofurantoin <=16 S C Trimethoprim/Sulfameth oxazole <=20 S C Normal [facility] Comment on above: Performed By: #### C BC #### [facility] [address] [place] [address] Dr. Arianna Hamlin ANTISTREPTOLYSIN O AB (ASO)o n 05-10-2022 Antistreptolysin O Ab 45.8 IU/mL Normal 0.0-200.0 [facility] Comment on above: Performed By: #### C BC #### [facility] [address] [place] [address] Dr. Arianna Hamlin RHEUMATOID FACTORon 05-10-20 22 RA Latex Turbid. <10.0 Normal <14.0 [facility] Comment on above: Performed By: #### B MP #### [facility] [address] [place] [address] Dr. Arianna Hamlin CRPon 05-08-2022 CRP [Mass/Vol] mg/L Normal <=1.0 [facility] Comment on above: Performed By: #### C BC #### [facility] [address] [place] [address] Dr. Arianna Hamlin UA RANDOM W/MICROSCOPICon BACTERIA LARGE Abnormal NONE SEEN [facility] Comment on above: Performed By: #### U AMIC #### [facility] [address] [place] [address] Dr. Arianna Hamlin Bilirubin Ql (U) Negative Normal NEGATIVE [facility] Comment on above: Performed By: #### U AMIC #### [facility] [address] [address] [address] Arianna Hamlin CAST NONE SEEN Normal NONE SEEN [facility] Comment on above: Performed By: #### U AMIC #### [facility] [address] [address] [address] Arianna Hamlin Clarity (U) CLEAR Normal CLEAR [facility] Comment on above: Performed By: #### U AMIC #### [facility] [address] [address] [address] Arianna Hamlin Color (U) LT. YELLOW Normal YELLOW [facility] Comment on above: Performed By: #### U AMIC #### [facility] [address] [address] [address] Arianna Hamlin Crystals LM Nom (Urine sed) NONE SEEN Normal NONE SEEN [facility] Comment on above: Performed By: #### U AMIC #### [facility] [address] [address] [address] Arianna Hamlin Epithelial cells LM Ql (Urine sed) FEW Abnormal NONE SEEN /RARE [facility] Comment on above: Performed By: #### U AMIC #### [facility] [address] [address] [address] Arianna Hamlin Glucose Ql (U) Negative Normal NEGATIVE [facility] Comment on above: Performed By: #### U AMIC #### [facility] [address] [address] [address] Arianna Hamlin Hemoglobin Ql (U) SMALL Abnormal NEGATIVE [facility] Comment on above: Performed By: #### U AMIC #### [facility] [address] [address] [address] Arianna Hamlin Ketones Ql (U) TRACE Abnormal NEGATIVE [facility] Comment on above: Performed By: #### U AMIC #### [facility] [address] [address] [address] Arianna Hamlin LEUKOCYTES MODERATE Abnormal NEGATIVE [facility] Comment on above: Performed By: #### U AMIC #### [facility] [address] [address] [address] Arianna Hamlin MUCOUS NONE SEEN Normal NONE SEEN [facility] Comment on above: Performed By: #### U AMIC #### [facility] [address] [address] [address] Arianna Hamlin Nitrite Ql (U) Positive Abnormal NEGATIVE [facility] Comment on above: Performed By: #### U AMIC #### [facility] [address] [address] [address] Arianna Hamlin pH (U) 6.0 [pH] Normal 5-9 [facility] Comment on above: Performed By: #### U AMIC #### [facility] [address] [place] [address] Dr. Arianna Hamlin RBC 2-5 Abnormal 0-2 [facility] Comment on above: Performed By: #### U AMIC #### [facility] [address] [place] [address] Dr. Arianna Hamlin SPEC GRAVITY >=1.030 Abnormal 1.005-<=1.025 [facility] Comment on above: Performed By: #### U AMIC #### [facility] [address] [address] [address] Arianna Hamlin UA PROTEIN Negative Normal NEGATIVE/ TRACE [facility] Comment on above: Performed By: #### U AMIC #### [facility] [address] [place] [address] Dr. Arianna Hamlin Urobilinogen Qn (U) 0.2 {Ayden'U}/dL Normal 0.2 - 1. 0 [facility] Comment on above: Performed By: #### U AMIC #### [facility] [address] [place] [address] Dr. Arianna Hamlin WBC 20-50 Abnormal NONE SEEN [facility] Comment on above: Performed By: #### U AMIC #### [facility] [address] [place] [address] Dr. Arianna Hamlin URIC ACID SERUMon 05-08-2022 Urate [Mass/Vol] 4.1 mg/dL Normal 2.6-6.0 [facility] Comment on above: Performed By: #### U BETY, CRP #### [facility] [address] [address] [address] Arianna Hamlin XR hip RT min 2V(w/wo pelvis )*on 01-27-2022 XR hip RT min 2V(w/wo pelvis)* [facility] [employer] [address] [place] [address] XRay Report Signed Patient: Simin Caro MR#: [id number] : 1970 Acct:[id number] Age/Sex: 51 / F ADM Date: 01/27/22 Loc: [facility] Room: Type: [facility] Attending Dr: Rai Alvarenga DO Copies to: Rai Alvarenga DO Ordering Provider: Rai Alvarenga DO Date of Service: 01/27/22 XR/XR hip RT min 2V(w/wo pelvis)*: Right hip pain LEFT HIP - 2 views: CLINICAL HISTORY: Right hip pain lateral aspect for one month. COMPARISON: None FINDINGS: No acute bony process. No focal soft tissue abnormality. Degenerative changes noted involving the visualized lower lumbar spine, SI joints and pubic symphysis. Minimal degenerative changes of the hips. XR/XR hip RT min 2V(w/wo pelvis)* IMPRESSION: DEGENERATIVE CHANGES OF THE BONY PELVIS WITHOUT ACUTE BONY PROCESS.. Impression dictated by: Fabio Oates Jr., D.OHarris01/27/2022 9:14 AM Dictation Location: [place] [address] Transcribed By: [facility] 01/27/22913 Dictated By: Fabio Oates Jr, DO 01/27/22 0910 Signed By: 01/27/22 0914 Normal [facility] CBC AUTO DIFFon 01-24-2022 BASO # 0.1 103/ul Normal 0.0-0.1 [facility] Comment on above: Performed By: #### C BC #### [facility] [address] [place], [place] [address] Dr. Arianna Hamlin Basophils/100 WBC (Bld) 0.9 % Normal 0.2-2.0 [facility] Comment on above: Performed By: #### C BC #### [facility] [address] [place] [address] Dr. Arianna Hamlin EO # 0.1 103/ul Normal 0.0-0.7 [facility] Comment on above: Performed By: #### C BC #### [facility] [address] [place] [address] Dr. Arianna Hamlin Eosinophils/100 WBC (Bld) 2.2 % Normal 0.9-7.0 [facility] Comment on above: Performed By: #### C BC #### [facility] [address] [place] [address] Dr. Arianna Hamlin Erythrocyte distribution width (RBC) [Ratio] 12.7 % Normal 11.0-15.0 [facility] Comment on above: Performed By: #### C BC #### [facility] [address] [place] [address] Dr. Arianna Hamlin Hematocrit (Bld) [Volume fraction] 42.6 % Normal 36.0-48.0 [facility] Comment on above: Performed By: #### C BC #### [facility] [address] [place] [address] Dr. Arianna Hamlin Hemoglobin (Bld) [Mass/Vol] 14.2 g/dL Normal 12.0-16.0 [facility] Comment on above: Performed By: #### C BC #### [facility] [address] [place] [address] Dr. Arianna Hamlin IG # 0.02 10e3/ul Normal 0.00-0.03 [facility] Comment on above: Performed By: #### C BC #### [facility] [address] [place] [address] Dr. Arianna Hamlin IG % 0.4 % Normal 0.0-0.5 [facility] Comment on above: Performed By: #### C BC #### [facility] [address] [place] [address] Dr. Arianna Hamlin LYMPH # 2.0 103/ul Normal 1.2-3.8 [facility] Comment on above: Performed By: #### C BC #### [facility] [address] [place] [address] Dr. Arianna Hamlin Lymphocytes/100 WBC (Bld) 38.1 % Normal 20.5-60.0 [facility] Comment on above: Performed By: #### C BC #### [facility] [address] [place] [address] Dr. Arianna Hamlin MANUAL DIFF REQ NO Normal [facility] Comment on above: Performed By: #### C BC #### [facility] [address] [place] [address] Dr. Arianna Hamlin MCH (RBC) [Entitic mass] 28.1 pg Normal 26.7-34.0 [facility] Comment on above: Performed By: #### C BC #### [facility] [address] [place] [address] Dr. Arianna Hamlin MCHC (RBC) [Mass/Vol] 33.3 g/dL Normal 29.9-35.2 [facility] Comment on above: Performed By: #### C BC #### [facility] [address] [place] [address] Dr. Arianna Hamlin MCV (RBC) [Entitic vol] 84.4 fL Normal 81.0-99.0 [facility] Comment on above: Performed By: #### C BC #### [facility] [address] [place] [address] Dr. Arianna Hamlin MONO # 0.4 103/ul Normal 0.3-0.8 [facility] Comment on above: Performed By: #### C BC #### [facility] [address] [place] [address] Dr. Arianna Hamlin Monocytes/100 WBC (Bld) 7.3 % Normal 1.7-12.0 [facility] Comment on above: Performed By: #### C BC #### [facility] [address] [place] [address] Dr. Arianna Hamlin NEUT # 2.7 103/ul Normal 1.4-6.5 [facility] Comment on above: Performed By: #### C BC #### [facility] [address] [place] [address] Dr. Arianna Hamlin Neutrophils/100 WBC (Bld) 51.1 % Normal 43.0-75.0 [facility] Comment on above: Performed By: #### C BC #### [facility] [address] [place] [address] Dr. Arianna Hamlin Platelet mean volume (Bld) [Entitic vol] 9.8 fL Normal 9.5-13.5 [facility] Comment on above: Performed By: #### C BC #### [facility] [address] [place] [address] Dr. Arianna Hamlin PLT 276 103/ul Normal 150-450 [facility] Comment on above: Performed By: #### C BC #### [facility] [address] [place] [address] Dr. Arianna Hamlin RBC 5.05 106/ul Normal 4.20-5.40 [facility] Comment on above: Performed By: #### C BC #### [facility] [address] [place] [address] Dr. Arianna Hamlin WBC 5.4 103/ul Normal 4.0-11.0 [facility] Comment on above: Performed By: #### C BC #### [facility] [address] [place] [address] Dr. Arianna Hamlin PROF 14(COMP METB)on 022 Albumin [Mass/Vol] 4.2 g/dL Normal 3.4-5.0 [facility] Comment on above: Performed By: #### B MP #### [facility] [address] [place] [address] Dr. Arianna Hamlin Albumin/Globulin [Mass ratio] 1.3 {ratio} Normal [facility] Comment on above: Performed By: #### B MP #### [facility] [address] [place] [address] Dr. Arianna Hamlin ALP [Catalytic activity/Vol] 92 U/L Normal 46-116 [facility] Comment on above: Performed By: #### B MP #### [facility] [address] [place] [address] Dr. Arianna Hamlin ALT [Catalytic activity/Vol] 25 U/L Normal 14-59 [facility] Comment on above: Performed By: #### B MP #### [facility] [address] [address] [address] Arianna Hamlin Anion gap [Moles/Vol] 10.4 mmol/L Normal [facility] Comment on above: Performed By: #### B MP #### [facility] [address] [address] [address] Arianna Hamlin AST [Catalytic activity/Vol] 20 U/L Normal 15-37 [facility] Comment on above: Performed By: #### B MP #### [facility] [address] [address] [address] Arianna Hamlin Bilirubin [Mass/Vol] 0.2 mg/dL Normal 0.2-1.0 [facility] Comment on above: Performed By: #### B MP #### [facility] [address] [place] [address] Dr. Arianna Hamlin Calcium [Mass/Vol] 9.0 mg/dL Normal 8.5-10.1 [facility] Comment on above: Performed By: #### B MP #### [facility] [address] [place] [address] Dr. Arianna Hamlin Chloride [Moles/Vol] 103 mmol/L Normal 98-107 [facility] Comment on above: Performed By: #### B MP #### [facility] [address] [address] [address] Arianna Hamlin CO2 [Moles/Vol] 29.7 mmol/L Normal 21.0-32.0 [facility] Comment on above: Performed By: #### B MP #### [facility] [address] [address] [address] Arianna Hamlin Creatinine [Mass/Vol] 0.87 mg/dL Normal 0.55-1.02 [facility] Comment on above: Performed By: #### B MP #### [facility] [address] [address] [address] Arianna Hamlin EGFR-AF [place] >60 Normal >=60 [facility] Comment on above: Performed By: #### B MP #### [facility] [address] [address] [address] Arianna Hamlin EGFR-NON AF [place] >60 Normal >=60 [facility] Comment on above: Performed By: #### B MP #### [facility] [address] [address] [address] Arianna Hamlin Globulin (S) [Mass/Vol] 3.3 g/dL Normal [facility] Comment on above: Performed By: #### B MP #### [facility] [address] [address] [address] Arianna Hamlin Glucose [Mass/Vol] 99 mg/dL Normal 74-106 [facility] Comment on above: Performed By: #### B MP #### [facility] [address] [address] [address] Arianna Hamlin Potassium [Moles/Vol] 4.1 mmol/L Normal 3.5-5.1 [facility] Comment on above: Performed By: #### B MP #### [facility] [address] [address] [address] Arianna Hamlin Protein [Mass/Vol] 7.5 g/dL Normal 6.4-8.2 [facility] Comment on above: Performed By: #### B MP #### [facility] [address] [address] [address] Arianna Hamlin Sodium [Moles/Vol] 139 mmol/L Normal 136-145 [facility] Comment on above: Performed By: #### B MP #### [facility] [address] [address] [address] Arianna Hamlin Urea nitrogen [Mass/Vol] 11.0 mg/dL Normal 7.0-18.0 [facility] Comment on above: Performed By: #### B MP #### [facility] [address] [address] [address] Arianna Hamlin Urea nitrogen/Creatinine [Mass ratio] 12.6 mg/mg Normal [facility] Comment on above: Performed By: #### B MP #### [facility] [address] [place], [place] [address] Dr. Arianna Hamlin Provider Letteron 09-06-2021 Provider Letter September 06, 2021 SIMIN CARO [address] [place] [id number] SIMIN CARO 1970 Dear Simin_ , We have been trying to reach you with no success. It is important that you return our call regarding your referral from Melinda Rodriguez upon receiving this letter. Also, at the time of your call, please provide us with your correct phone number. . Thank you for your prompt attention to this matter. Sincerely, General Surgery [phone] [facility] Physician Referralon 022 Physician Referral [phone] [id number]:[id number] [facility] Vital Signs Date Time Vital Sign Value Performing Clinician Faci lity 02-03-2022 12:15-0400 Body height 160.02 cm Rai Alvarenga Other [facility] Other 02-03-2022 12:15-0400 Body mass index (BMI) [Ratio] 36.13 kg/m2 Rai Alvarenga Other [facility] Other 02-03-2022 12:15-0400 Body weight 92.53 kg Rai Alvarenga Other [facility] Other 01-27-2022 09:00-0400 Body height 160.02 cm Rai Alvarenga Other [facility] Other 01-27-2022 09:00-0400 Body mass index (BMI) [Ratio] 36.13 kg/m2 Rai Alvarenga Other [facility] Other 01-27-2022 09:00-0400 Body weight 92.53 kg Rai Alvarenga Other [facility] Other 10-31-2021 16:30-0400 Body height 160.02 cm Rai Alvarenga Other [facility] Other 10-31-2021 16:30-0400 Body mass index (BMI) [Ratio] 37.02 kg/m2 Rai Alvarenga Other [facility] Other 10-31-2021 16:30-0400 Body weight 94.8 kg Rai Alvarenga Other [facility] Other Encounters Encounter Date Encounter Type Care Provider Facility Start: 12-19-2022 End: 12-20-2022 ambulatory KEL MONTGOMERY Facility:[facility] Start: 11-14-2022 ambulatory KELMAO MONTGOMERY Facility: [facility] Start: 11-08-2022 End: 11-09-[address] NONE LISTED REQUEST Facility:[facility] Start: 10-18-2022 End: 10-19-[address] NONE LISTED REQUEST Facility:[facility] Start: 09-28-2022 End: 09-29-2022 ambulatory ADRIANA JUDY Facility:[facility] Start: 09-23-2022 End: 09-24-[address] NONE LISTED REQUEST Facility:[facility] Start: 09-07-2022 End: 09-08-2022 ambulatory ADRIANA JUDY Facility:[facility] Start: 08-14-2022 End: 08-15-[address] NONE LISTED REQUEST Facility:[facility] Start: 08-10-2022 Encounter for preprocedural laboratory examination LOS VENTURA [facility] Start: 08-10-2022 ambulatory KEL VALENTINA Facility: [facility] Start: 08-08-2022 End: 08-09-2022 ambulatory KELMAO MONTGOMERY Facility:[facility] Start: 08-08-2022 End: 08-09-2022 Encounter for preprocedural laboratory examination KEL MONTGOMERY Facility:[facility] Start: 07-05-2022 End: 07-05-2022 ambulatory KEL VALENTINA Facility:[facility] Start: 07-01-2022 End: 07-02-2022 ambulatory KELMAO MONTGOMERY Facility:[facility] Start: 06-28-2022 End: 06-29-2022 ambulatory KEL VALENTINA Facility:[facility] Start: 06-20-2022 End: 06-21-2022 ambulatory KEL VALENTINA Facility:[facility] Start: 06-14-2022 End: 06-15-2022 ambulatory KEL VALENTINA Facility:[facility] Start: 05-28-2022 ambulatory KEL VALENTINA Facility: [facility] Start: 05-17-2022 End: 05-17-2022 ambulatory KEL VALENTINA Facility:[facility] Start: 05-15-2022 End: 05-16-2022 ambulatory KEL VALENTINA Facility:[facility] Start: 05-08-2022 End: 05-09-2022 ambulatory KEL VALENTINA Facility:[facility] Start: 03-25-2022 ambulatory KEL VALENTINA Facility: [facility] Start: 02-27-2022 ambulatory KEL VALENTINA Facility: [facility] Start: 02-03-2022 End: 02-03-2022 ambulatory Rai Alvarenga Other [facility] Other Start: 02-03-2022 Postop follow up vis it related to original px Rai Alvarenga [facility] Start: 01-27-2022 End: 01-27-2022 ambulatory Rai Alvarenga Other [facility] Other Start: 01-27-2022 Office outpatient vi sit 15 minutes Rai Alvarenga [facility] Start: 01-24-2022 End: 01-25-2022 ambulatory RAI ALVARENGA Facility:[facility] Start: 10-31-2021 End: 10-31-2021 ambulatory Rai Alvarenga Other [facility] Other Start: 10-31-2021 Office outpatient ne w 45 minutes [facility] Immunizations Immunization Date Immunization Notes Care Provider Leoncio ware 05-16-2021 influenza, injectabl e, quadrivalent, preservative free Rai Alvarenga Other [facility] Other 01-01-2021 COVID-19 Vaccine Yari - Documentation Purposes Only Rai Alvarenga Other [facility] Other Payers Date Payer Category Payer Unknown [id number] 2.16.84 [id number] 1970 Unknown [id number] 2.16.84 0.1.687150.3.579.2.593 1970 Unknown [id number] 2.16.84 0.1.115724.3.579.2.593 1970 Unknown [id number] 2.16.84 0.1.153318.3.579.2.593 1970 Unknown [id number] 2.16.84 0.1.395750.3.579.2.593 1970 Unknown [id number] 2.16.84 0.1.138627.3.579.2.593 1970 Unknown [id number] 2.16.84 0.1.244866.3.579.2.593 1970 Unknown [id number] 2.16.84 0.1.892329.3.579.2.593 1970 Unknown [id number] 2.16.84 0.1.360174.3.579.2.593 1970 Unknown [id number] 2.16.84 0.1.238180.3.579.2.593 1970 Unknown [id number] 2.16.84 0.1.050738.3.579.2.593 1970 Unknown [id number] 2.16.84 0.1.102015.3.579.2.593 1970 Unknown [id number] 2.16.84 0.1.556372.3.579.2.593 1970 Unknown [id number] 2.16.84 0.1.849472.3.579.2.593 1970 Unknown [id number] 2.16.84 0.1.507047.3.579.2.593 1970 Unknown [id number] 2.16.84 0.1.411181.3.579.2.593 1970 Unknown [id number] 2.16.84 0.1.353440.3.579.2.593 1970 Unknown [id number] 2.16.84 0.1.608998.3.579.2.593 1970 Unknown [id number] 2.16.84 0.1.952585.3.579.2.593 1970 Unknown [id number] 2.16.84 0.1.477292.3.579.2.593 1970 Unknown [id number] 2.16.84 0.1.608109.3.579.2.593 1970 Unknown [id number] 2.16.84 0.1.035670.3.579.2.593 1959 [facility] [id number] 2.16.840.1.847262.19 1959 Self-pay Social History Date Type Detail Facility Sex Assigned At [facility] Other Clinical Notes 10-31-2021 to 12-19-2022 Note Date & Type Note Facility 12-19-2022 Note PROCEDURE: XR FOOT R T MIN 3 VIEWS DATE: 12/19/2022 10:05 AM CDT COMPARISONS: 11/08/2022 CLINICAL INDICATION: Pain in right foot FINDINGS: There is no evidence of fractures or other acute osseous abnormalities. There is generalized bone demineralization, stable. There is again extensive mid and hindfoot postsurgical changes resulting in multiple tarsal-tarsal fusions. Postop changes are stable from previous exam. IMPRESSION: Stable postoperative right foot radiographs. . Electronically authenticated by: LARISSA CHOI Date: 2022-12-19 11:40 [facility] 10-19-2022 Note PROCEDURE: XR FOOT R T MIN 3 VIEWS HISTORY: Pain in right foot COMPARISON: XR foot right 09/28/2022 FINDINGS: BONES:Talocalcaneal and talonavicular fusion, to include the medial and middle cuneiforms. No appreciable hardware fracture or loosening. No bone fracture or dislocation. Multifocal mild degenerative changes of the tarsal metatarsal joints. Prior bone harvesting from distal tibia. SOFT TISSUES:No visible soft tissue swelling. EFFUSION:None visible. OTHER: Negative. IMPRESSION: 1. Stable surgical changes without evidence of hardware failure or change in alignment. Electronically authenticated by: TERI KAY Date: 2022-10-19 08:47 [facility] 09-28-2022 Note PROCEDURE: XR FOOT R T MIN 3 VIEWS COMPARISON: 09/07/2022 HISTORY: Pain in right foot FINDINGS: BONES:Able postsurgical changes with dorsal fusion of the midfoot hindfoot subtalar fusion and talonavicular fusion. Lucency in the distal tibia from prior bone graft harvesting. SOFT TISSUES:Moderate soft tissue swelling EFFUSION:None visible. OTHER: Interval removal of surgical skin nemo. IMPRESSION: Stable postsurgical changes Electronically authenticated by: BARBARA HERNANDEZ Date: 2022-09-28 16:30 [facility] 09-08-2022 Note PROCEDURE: XR FOOT R T MIN 3 VIEWS HISTORY: Pain COMPARISON: XR foot right 08/14/2022 FINDINGS: BONES:Hindfoot and midfoot fusion without evidence of hardware fracture or loosening. No bone fracture or dislocation. SOFT TISSUES:Mild soft tissue swelling. Skin nemo anterior and lateral to the ankle. EFFUSION:None visible. OTHER: Negative. IMPRESSION: 1. Stable surgical changes without evidence of hardware failure or change in alignment. Electronically authenticated by: TERI KAY Date: 2022-09-08 07:03 [facility] 08-15-2022 Note PROCEDURE: XR FOOT R T MIN 3 VIEWS, XR ANKLE RT MIN 3 VIEWS COMPARISON: 06/14/2022 HISTORY: Pain FINDINGS: BONES:Subtalar fusion with 2 cannulated screws. Midfoot hindfoot fusion with a medial plate surgical staple and multiple screws. No acute fracture, dislocation or mechanical failure. Lytic change of the distal tibia likely from bone graft harvesting. SOFT TISSUES:Postprocedural soft tissue swelling subcutaneous air and surgical skin nemo EFFUSION:None visible. OTHER: Negative. IMPRESSION: Medial midfoot/hindfoot and subtalar fusion Electronically authenticated by: BARBARA HERNANDEZ Date: 2022-08-15 08:58 [facility] 08-15-2022 Note PROCEDURE: XR FOOT R T MIN 3 VIEWS, XR ANKLE RT MIN 3 VIEWS COMPARISON: 06/14/2022 HISTORY: Pain FINDINGS: BONES:Subtalar fusion with 2 cannulated screws. Midfoot hindfoot fusion with a medial plate surgical staple and multiple screws. No acute fracture, dislocation or mechanical failure. Lytic change of the distal tibia likely from bone graft harvesting. SOFT TISSUES:Postprocedural soft tissue swelling subcutaneous air and surgical skin nemo EFFUSION:None visible. OTHER: Negative. IMPRESSION: Medial midfoot/hindfoot and subtalar fusion Electronically authenticated by: BARBARA HERNANDEZ Date: 2022-08-15 08:58 [facility] 06-15-2022 Note PROCEDURE: XR FOOT R T MIN 3 VIEWS COMPARISON: 09/08/2021 HISTORY: Pain in right foot FINDINGS: BONES:No acute fracture or dislocation. Stable vbbx-bi-mfqhivyh degenerative change with joint space narrowing marginal osteophyte formation most significant in the midfoot SOFT TISSUES:Negative. No visible soft tissue swelling. EFFUSION:None visible. OTHER: Negative. IMPRESSION: Stable degenerative changes Electronically authenticated by: BARBARA HERNANDEZ Date: 2022-06-15 08:48 [facility] 02-03-2022 Evaluation note Encounter Date Diagnosis Assessment Notes Jan, Carpal tunnel syndrome of left wrist (ICD-10 - G56.02) 1 week s/p left carpal tunnel release. Surgical incision is benign. Sutures been removed today. Start working on range of motion and scar massage. Plan for follow-up in another 6 weeks for repeat evaluation. Patient is progressing well from surgery. We discussed the importance of continuing motion and strength exercise. Sutures removed today, patient tolerated well. We discussed progressing activity as tolerated. Jan, Other specified postprocedural states (ICD-10 - Z98.890) Jan, Trigger middle finger of right hand (ICD-10 - M65.331) Currently resolved. Continue to monitor [facility] Other 07-01-2022 Evaluation note* Encounter Date Diagnosis Assessment Notes Treatment Notes Treatment Clinical Notes Jan, Right hip pain (ICD-10 - M25.551) Jan, Trochanteric bursitis, right hip (ICD-10 - M70.61) Today Simin has trochanteric bursitis on the right side. We discussed treatment options including cortisone injection which she would like to proceed with. Today under sterile technique the patient's right hip greater trochanter bursa was injected with 4 cc of Marcaine and 1 cc of Kenalog, she tolerated this well. I will see her back next week for her scheduled follow-up This appears to be pain secondary to greater trochanteric bursitis. Discussed treatment options as oral or topical NSAIDs, physical therapy with iontophoresis, or cortisone injection to the greater trochanteric bursa. Patient was prepped and cortisone was injected into the greater trochanteric bursa under sterile conditions. Patient tolerated injection well with no adverse reactions. Patient given [facility] handout Jan, Carpal tunnel syndrome of left wrist (ICD-10 - G56.02) POD #1 s/p left carpal tunnel release. Postoperative dressing is benign and intact. Maintain this until her next week follow-up Jan, Other specified postprocedural states (ICD-10 - Z98.890) Jan, Other [ ] Follow up in [ ] [days, weeks, months, years] [No xrays are needed, repeat radiographs] [ ] Continue mobilization [without restrictions, NWB, TDWB, ROM limitations]; this was encouraged and exercises were reviewed in the office today. [ ] See orders for this visit as documented in the electronic medical record. [facility] Other 06-30-2022 History general Narrative - Reported* Type Description Date Medical History Hypertension Medical History chronic depression Medical History hearing loss Surgical History hysterectomy-partial 2017 Surgical History left carpal tunnel release by Bibi Alvarenga 01/26/2022 [facility] Other 04-04-2022 Evaluation note* Encounter Date Diagnosis Assessment Notes Treatment Notes Treatment Clinical Notes Oct, Carpal tunnel syndrome of left wrist (ICD-10 - G56.02) Simin presents with left worse than right carpal tunnel syndrome. At this juncture we have discussed the findings and diagnosis as well as personally reviewed appropriate imaging and performed interpretation of related testing and examination with the patient in office today. Prior medical notes from Dr. Arroyo and history have been reviewed. The patient has been involved in our cooperative treatment plan and agrees to move forward with treatment at this time. We will proceed with left carpal tunnel release to be followed by right carpal tunnel release Oct, Carpal tunnel syndrome of right wrist (ICD-10 - G56.01) Findings and diagnosis of carpal tunnel syndrome have been discussed at length with the patient. We have discussed how it is the most common compressive neuropathy effects up to 10% of the population. Diagnostic evaluation including physical exam as well as electromyography and nerve conduction studies were discussed. Imaging and diagnostic studies have been reviewed with the patient. Nonoperative treatment including NSAIDs, night splints as well as activity modifications along with steroid injections have been discussed. We have discussed open surgical release of the transverse carpal ligament which is performed during carpal tunnel surgery. We have also discussed the outcomes involved in surgical release including the return of pinch strength in approximately 6 weeks, associate financial representative strength recovery at about 12 weeks, and the possibility of ongoing symptoms at 1 year and 20% of severe cases. Patient verbalized understanding of our discussion and would like to move forward with left followed by right carpal tunnel release at this time. At this juncture we have discussed the findings and diagnosis as well as reviewed appropriate imaging and performed interpretation of testing. Surgical intervention is recommended. Prior medical notes and history have been reviewed. Surgical versus non-operative management have been discussed in detail and non-operative management was given as an option. The risks of surgical intervention were given. Pre-operative optimization will be done prior to surgical procedure to limit sajan-operative risks. I have discussed the planned procedure, how and who performs the procedure, and the personnel involved. Cardiovascular, pulmonary, and other life threatening episodes can occur during surgery although there is a low risk of these happening. Surgical risks including bleeding, neurovascular injury, wound closure problems and infection were discussed. Sajan-operative risks including infection, bleeding, wound healing problems, and need for further surgery were discussed. It was discussed that there is a possibility of blood transfusion with any surgical procedure and the risks involved in receiving a blood transfusion. Possibility of, and need for, future bracing or DME use, physical or occupational therapy, mental therapy, rehabilitation, pain management and need for secondary procedures was discussed. I have warned against smoking and the use of tobacco products due to the risks associated with them, in particular, poor healing. I have advised against the terminal makeup operator use of narcotic pain medication. I have advised to follow all post-operative instructions in order to obtain the best outcome. Informed consent has been verbally affirmed and signed as indicated. 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 We discussed static splinting for comfort and have applied a stack splint today. Patient given stax splint Oct, Other See orders for this visit as documented in the electronic medical record. [facility] Other History general Narrative - Reported* Type Description Date Medical History Hypertension Medical History chronic depression Medical History hearing loss Surgical History hysterectomy-partial 2016 [facility] Other Summary Purpose Family History No Family History Records FoundNo Family History Records FoundNo Family History Records Found Advance Directives No Advanced Directives Records FoundNo Advanced Directives Records FoundNo Advanced Directives Records Found Additional Source Comments REASON FOR VISIT (unrecogniz ed section and content) Bilateral Carpal TunnelRight Hip PainRecheck Left Wrist INFORMATION SOURCE (unrecogn ized section and content) DATE CREATED AUTHOR 01/30/2022 [facility] DATE CREATED AUTHOR AUTHOR'S ORGANIZ ATION 02/17/2022 [facility] DATE CREATED AUTHOR AUTHOR'S ORGANIZ ATION [facility] FOR RECORDS PERTAINING TO PATIENTS WHO ARE OR HAVE BEEN ENROLLED IN A CHEMICAL DEPENDENCY/SUBSTANCEABUSE PROGRAM, SOME INFORMATION MAY BE OMITTED. This clinical summary was aggregated from multiple sources. Caution should be exercised in using it in the provision of clinical care. This summary normalizes information from multiple sources, and as a consequence, information in this document may materially change the coding, format and clinical context of patient data. In addition, data may be omitted in some cases. CLINICAL DECISIONS SHOULD BE BASED ON THE PRIMARY CLINICAL RECORDS. [employer] [facility]. provides no warranty or guarantee of the accuracy or completeness of information in this document.
== END 2023-08-01 11:48 | disposition home or self-care (01) ==
LOC: RAD 11:47
PROVIDERS: PCP Nurse Practitioner Family; Visit Provider Podiatrist Foot & Ankle Surgery
DX: M24.571 Contracture, right ankle (principal)
CPT/HCPCS: 73610

== ENCOUNTER 2023-10-24 15:21 | Outpatient (OUT) | payer OTHER, SELFPAY ==
--- NOTE | 2023-10-24 | XR_ITS ---
[address] [address] Patient Name: LAWRENCE LIZAMA MRN: [id number] date: 1970 Sex: F Assigned Patient Location: Current Patient Location: Accession/Order Number: [id number] Exam Date: 10/24/2023 15:25 Report Date: 10/25/2023 07:17 At the request of: ADRIANA KIM Procedure: XR ankle RT min 3V PROCEDURE: XR ankle RT min 3V, XR foot RT min 3V COMPARISON: 08/01/2023 HISTORY: RIGHT ANKLE PAIN FINDINGS: BONES:No acute fracture or dislocation. Midfoot hindfoot fusion. Subtalar fusion with 2 cannulated screws. The screws extend beyond the dorsal margin of the talus with one of the screws at the joint space. Dorsal plates and screws and surgical nemo appear intact extending from the talus into the tarsal bones without mechanical failure. Mild permeative pattern of the bones could represent mild osteopenia. Sclerosis of the distal tibia consistent with bone graft harvesting with bony filling SOFT TISSUES:Mild diffuse soft tissue swelling EFFUSION:Small joint effusion OTHER: Negative. XR/XR ankle RT min 3V IMPRESSION: Stable midfoot hindfoot fusion with the subtalar screws extending beyond the dorsal cortical margin of the talus No mechanical failure Electronically authenticated by: BARBARA HERNANDEZ Date: 10/25/2023 07:17
--- NOTE | 2023-10-24 | XR_ITS ---
[address] [address] Patient Name: LAWRENCE LIZAMA MRN: [id number] date: 1970 Sex: F Assigned Patient Location: Current Patient Location: Accession/Order Number: [id number] Exam Date: 10/24/2023 15:25 Report Date: 10/25/2023 07:17 At the request of: ADRIANA KIM Procedure: XR foot RT min 3V PROCEDURE: XR ankle RT min 3V, XR foot RT min 3V COMPARISON: 08/01/2023 HISTORY: RIGHT ANKLE PAIN FINDINGS: BONES:No acute fracture or dislocation. Midfoot hindfoot fusion. Subtalar fusion with 2 cannulated screws. The screws extend beyond the dorsal margin of the talus with one of the screws at the joint space. Dorsal plates and screws and surgical nemo appear intact extending from the talus into the tarsal bones without mechanical failure. Mild permeative pattern of the bones could represent mild osteopenia. Sclerosis of the distal tibia consistent with bone graft harvesting with bony filling SOFT TISSUES:Mild diffuse soft tissue swelling EFFUSION:Small joint effusion OTHER: Negative. XR/XR foot RT min 3V IMPRESSION: Stable midfoot hindfoot fusion with the subtalar screws extending beyond the dorsal cortical margin of the talus No mechanical failure Electronically authenticated by: BARBARA HERNANDEZ Date: 10/25/2023 07:17
== END 2023-10-24 15:22 | disposition home or self-care (01) ==
PROVIDERS: PCP Nurse Practitioner Family; Visit Provider Physician Assistant
DX: M19.071 Primary osteoarthritis, right ankle and foot (principal); M21.071 Valgus deformity, not elsewhere classified, right ankle; Z98.890 Other specified postprocedural states
CPT/HCPCS: 73610; 73630

== ENCOUNTER 2023-12-27 11:29 | Outpatient (OUT) | payer OTHER, SELFPAY ==
--- NOTE | 2023-12-27 11:32 | MM_ITS ---
Patient Name: LAWRENCE LIZAMA MR#: [id number] : 1970 Exam Date: 12/27/2023 Ordering Doctor: KEL MONTGOMERY CNP RADIOLOGY REPORT PROCEDURE: MM TOMOSYNTHESIS SCREENING BI COMPARISON: None. INDICATIONS: Screening Calculator Name NCI Breast Cancer Risk Assessment Tool 5 Year Breast Cancer Risk 1.10% Lifetime Breast Cancer Risk 8.40% Personal Breast Cancer No Personal Ovarian Cancer No Treatments None Family Cancers Father with bone cancer at age 69. LOCATION: [facility] BREAST COMPOSITION: There are scattered areas of fibroglandular density. FINDINGS: DIAGNOSTIC CATEGORY 2--BENIGN FINDING: Scattered benign-appearing nodules are present. Scattered benign-appearing calcifications are present. Scattered benign-appearing lymph nodes are present. RIGHT BREAST: No significant suspicious finding. LEFT BREAST: No significant suspicious finding. RECOMMENDATIONS: ROUTINE MAMMOGRAM AND CLINICAL EVALUATION IN 12 MONTHS. PLEASE NOTE: A NORMAL MAMMOGRAM DOES NOT EXCLUDE THE POSSIBILITY OF BREAST CANCER. A CLINICALLY SUSPICIOUS PALPABLE LUMP SHOULD BE BIOPSIED. Dictated by: Oneil Robins MD on 12/27/2023 at 12:20 Approved by: Oneil Robins MD on 12/27/2023 at 12:21
== END 2023-12-27 11:30 | disposition home or self-care (01) ==
LOC: MAMMO 11:29
PROVIDERS: PCP Nurse Practitioner Family; Visit Provider Nurse Practitioner Family
DX: Z12.31 Encounter for screening mammogram for malignant neoplasm of breast (principal); Z80.8 Family history of malignant neoplasm of other organs or systems
CPT/HCPCS: 77063; 77067

== ENCOUNTER 2024-01-01 14:44 | Outpatient (OUT) | payer OTHER, SELFPAY ==
--- NOTE | 2024-01-01 14:49 | XR_ITS ---
[address] [address] Patient Name: LAWRENCE LIZAMA MRN: [id number] date: 1970 Sex: F Assigned Patient Location: [facility] Current Patient Location: [facility] Accession/Order Number: [id number] Exam Date: 01/01/2024 15:28 Report Date: 01/02/2024 14:51 At the request of: LOS VENTURA Procedure: XR chest 2V EXAM: XR chest 2V HISTORY: Preop exam COMPARISON: 02/26/2023 TECHNIQUE: Chest X-ray AP, 1 view FINDINGS: Support devices: None. Lungs/pleura: No consolidation, effusion, or pneumothorax. Heart and mediastinum: Normal contours. Bones: No acute abnormality identified. XR/XR chest 2V Impression: No radiographic evidence of acute cardiopulmonary process. Electronically authenticated by: BRENDA VELIZ Date: 01/02/2024 14:51
--- NOTE | 2024-01-01 14:49 | ECG_ITS ---
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
--- NOTE | 2024-01-01 15:19 | PM.PRESUREVA ---
History of Present Illness History of Present Illness Chief complaint: pseudoarthrosis after joint fusion Narrative: Patient presents for preadmission testing. The patient states she had right ankle surgery over a year ago and has continued to have daily pain ever since. She states her pain is constant, worse after standing at work all day, relieved by rest, she states she did attempt to wear a brace but it makes her pain worse. She is not currently taking any pain medication. She denies numbness, tingling, weakness, or any other complaints. Review of Systems ROS Narrative REVIEW OF SYSTEMS: Negative except as stated in HPI, ten or more systems reviewed. Constitutional: No fever, chills, weakness ENT: No sore throat or epistaxis Cardiovascular: No edema, chest pain, palpitations, or activity intolerance Respiratory: No shortness of breath, cough, or wheezing Gastrointestinal: No abdominal pain, constipation, diarrhea, or vomiting Genitourinary: No dysuria or hematuria Neurological: No numbness, tingling, weakness, or headache Psychiatric: No mood changes PFSH [facility] Medical History (Updated 01/01/24 @ 15:08 by Jacquelyn Coronado NP) Anemia ?D64.9 - Anemia, unspecified (ICD-10) PTSD (post-traumatic stress disorder) ?F43.10 - Post-traumatic stress disorder, unspecified (ICD-10) Depression ?F32.A - Depression, unspecified (ICD-10) Panic attacks ?F41.0 - Panic disorder [episodic paroxysmal anxiety] (ICD-10) COVID-19 ?U07.1 - COVID-19 (ICD-10) Migraine ?G43.909 - Migraine, unspecified, not intractable, without status migrainosus (ICD-10) Heartburn ?R12 - Heartburn (ICD-10) Foot pain ?M79.673 - Pain in unspecified foot (ICD-10) Inferior myocardial infarction ?I21.19 - ST elevation (STEMI) myocardial infarction involving other coronary artery of inferior wall (ICD-10) Arthritis ?M19.90 - Unspecified osteoarthritis, unspecified site (ICD-10) Hypertension ?I10 - Essential (primary) hypertension (ICD-10) Hallux valgus ?M20.10 - Hallux valgus (acquired), unspecified foot (ICD-10) Iron deficiency anemia ?D50.9 - Iron deficiency anemia, unspecified (ICD-10) Acquired deformity of right lower leg ?M21.961 - Unspecified acquired deformity of right lower leg (ICD-10) Primary osteoarthritis, right ankle and foot ?M19.071 - Primary osteoarthritis, right ankle and foot (ICD-10) Acquired valgus deformity of right foot ?M21.071 - Valgus deformity, not elsewhere classified, right ankle (ICD-10) Pain due to internal orthopedic prosthetic device ?T84.84XA - Pain due to internal orthopedic prosthetic devices, implants and grafts, initial encounter (ICD-10) Osteoarthritis of right ankle ?M19.071 - Primary osteoarthritis, right ankle and foot (ICD-10) Equinus contracture of right ankle ?M24.571 - Contracture, right ankle (ICD-10) Acquired varus deformity of right foot ?M21.171 - Varus deformity, not elsewhere classified, right ankle (ICD-10) Instability of ankle ?M25.373 - Other instability, unspecified ankle (ICD-10) Enlarged uterus ?N85.2 - Hypertrophy of uterus (ICD-10) Pseudarthrosis after fusion or arthrodesis ?M96.0 - Pseudarthrosis after fusion or arthrodesis (ICD-10) Posterior tibial tendon dysfunction ?M76.829 - Posterior tibial tendinitis, unspecified leg (ICD-10) Anxiety ?F41.9 - Anxiety disorder, unspecified (ICD-10) Chest pain ?R07.9 - Chest pain, unspecified (ICD-10) Surgical History (Updated 01/01/24 @ 14:56 by Jacquelyn Coronado NP) H/O tubal ligation ?Z98.51 - Tubal ligation status (ICD-10) H/O dilation and curettage ?Z98.890 - Other specified postprocedural states (ICD-10) History of hysterectomy ?Z90.710 - Acquired absence of both cervix and uterus (ICD-10) History of ankle surgery ?Z98.890 - Other specified postprocedural states (ICD-10) Family History (Updated 01/01/24 @ 14:56 by Jacquelyn Coronado NP) Other Arthritis Bone cancer Family history of hypertension Social History (Updated 01/01/24 @ 15:03 by Jacquelyn Coronado NP) Within the past year, how often did you have a drink containing alcohol: never Score interpretation: A score less than 3 is consistent with normal alcohol consumption. 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 Highest level of school completed/degree received: high school graduate Meds Home Medications and Allergies Home Medications ?Medication ?Instructions ?Recorded ?Confirmed ?Type amitriptyline 100 mg tablet 100 mg PO QDAY 02/26/23 01/01/24 History lisinopril 20 mg tablet 20 mg PO QDAY 02/26/23 01/01/24 History venlafaxine 75 mg capsule,extended 75 mg PO QDAY 02/26/23 01/01/24 History release 24 hr alprazolam 0.5 mg tablet 0.5 mg PO BID 01/01/24 01/01/24 History ascorbic acid (vitamin C) 1,000 mg 1 g PO DAILY 01/01/24 01/01/24 History capsule cholecalciferol (vitamin D3) 10 10 mcg PO DAILY 01/01/24 01/01/24 History mcg (400 unit) capsule ferrous sulfate 325 mg (65 mg 325 mg PO DAILY 01/01/24 01/01/24 History iron) tablet venlafaxine 150 mg 150 mg PO DAILY 01/01/24 01/01/24 History capsule,extended release 24 hr Allergies Allergy/AdvReac Type Severity Reaction Status Date / Time Latex, Natural Rubber Allergy Severe Rash Verified 02/26/23 16:56 aspirin AdvReac Nausea Verified 01/01/24 14:57 Exam Narrative Exam Narrative: Constitutional: Awake, alert, comfortable, well-appearing, nontoxic, interactive, vital signs as charted Head: Normocephalic, atraumatic Neck: Supple, normal appearance, normal range of motion, no meningeal signs, no lymphadenopathy Respiratory: No respiratory distress, breath sounds clear Cardiovascular: Regular rate and rhythm, strong and regular heart tones Musculoskeletal: Diffuse right ankle tenderness with palpation, range of motion limited due to pain Skin: No rashes or induration, no lesions, only visible skin inspected Neuro: No neurological deficits, normal sensation Psychiatric: Oriented ?3, Flat affect Assessment and Plan Assessment and Plan (1) Posterior tibial tendon dysfunction: (2) Pseudarthrosis after fusion or arthrodesis: (3) Instability of ankle: (4) Acquired varus deformity of right foot: (5) Equinus contracture of right ankle: (6) Osteoarthritis of right ankle: (7) Pain due to internal orthopedic prosthetic device: (8) Acquired valgus deformity of right foot: (9) Primary osteoarthritis, right ankle and foot: (10) Acquired deformity of right lower leg: (11) Hallux valgus: Plan Revision right subtalar joint arthrodesis with excision of nonunion, hardware removal, arthroscopic debridement of ankle joint, possible calcaneal osteotomy, bone graft as needed scheduled with Dr. Salmeron January 10, 2024.
[2024-01-01 15:34] LABS: Basophils Absolute Auto 0.1 10^3/uL (0.0-0.1); Basophils Percent Auto 1.1 % (0.2-2.0); Eosinophils Absolute Auto 0.1 10^3/uL (0.0-0.7); Eosinophils Percent Auto 2.8 % (0.9-7.0); Hematocrit 39.5 % (36.0-48.0); Immature Granulocytes Abs Auto 0.01 10^3/uL (0.00-0.03); Immature Granulocytes Pct Auto 0.2 % (0.0-0.5); Lymphocytes Absolute Auto 1.6 10^3/uL (1.2-3.8); Lymphocytes Percent Auto 35.1 % (20.5-60.0); Mean Corpuscular HGB Conc 32.9 g/dL (29.9-35.2); Mean Corpuscular Hemoglobin 27.4 pg (26.7-34.0); Mean Corpuscular Volume 83.3 fL (81.0-99.0); Monocytes Absolute Auto 0.4 10^3/uL (0.3-0.8); Monocytes Percent Auto 9.1 % (1.7-12.0); Neutrophils Absolute Auto 2.4 10^3/uL (1.4-6.5); Neutrophils Percent Auto 51.7 % (43.0-75.0); Platelet Count 234 10^3/uL (150-450); Red Blood Count 4.74 10^6/uL (4.20-5.40); Red Cell Distribution Width 12.9 % (11.0-15.0); White Blood Count 4.6 10^3/uL (4.0-11.0)
[2024-01-01 16:21] LABS: Anion Gap 12.7; Calcium 9.2 mg/dL (8.5-10.1); Carbon Dioxide 26.2 mmol/L (21.0-32.0); Chloride 105 mmol/L (98-107); Estimated GFR (African America >60 (>=60); Estimated GFR (Non-African Ame >60 (>=60); Glucose 96 mg/dL (74-106); Potassium 3.9 mmol/L (3.5-5.1); Sodium 140 mmol/L (136-145)
[2024-01-01 16:38] LABS: INR 0.97; Partial Thromboplastin Time 28.7 sec (22.3-36.2); Prothrombin Time 10.3 sec (9.0-11.6)
== END 2024-01-01 14:45 | disposition home or self-care (01) ==
LOC: PST 14:45
PROVIDERS: PCP Nurse Practitioner Family; Visit Provider Podiatrist Foot & Ankle Surgery
DX: Z01.810 Encounter for preprocedural cardiovascular examination (principal); Z01.812 Encounter for preprocedural laboratory examination; Z01.818 Encounter for other preprocedural examination; M76.821 Posterior tibial tendinitis, right leg; M96.0 Pseudarthrosis after fusion or arthrodesis
CPT/HCPCS: 36415; 71046; 80048; 85025; 85610; 85730; 93005; G0463

== ENCOUNTER 2024-01-10 06:16 | Day surgery (SDC) | payer OTHER, SELFPAY ==
[2024-01-01 15:10] VITALS: BP 136/84; PULSE 83; TEMP 36.3; O2SAT 94; BMI 39.2
[2024-01-10] VITALS (23 sets, daily range): BP systolic 102–149; BP diastolic 64–96; PULSE 68–81; TEMP 36.6–37; O2SAT 80–96; BMI 38.7; BMI 40.4
--- OUTSIDE RECORDS SUMMARY | 2024-01-10 06:18 | XMS_ITS | CCD ---
Author Organization [facility] CliniSyaz Care Team Providers Care Full Time Paramedic Name Role Phone Rai Alvarenga Unavailable KEL MONTGOMERY Primary Care Unavailable LOS VENTURA Attending Unavailable LOS VENTURA Consulting Unavailable LOS VENTURA Admitting Unavailable DALTON ALVARENGA Consulting Unavailable KEL MONTGOMERY Primary Care Unavailable LOS VENTURA Admitting Unavailable LOS VENTURA Attending Unavailable MELISSA, NONE LISTED Primary Care Unavaila laura HERNANDEZ, DR BARBARA Greer Consulting Unavailable SAMIERERandy, DR DANA Martinez Admitting Unavailable SAMIERERandy, DR DANA Martinez Attending Unavailable SAMIERERandy, DR DANA Martinez Consulting Unavailable LOS VENTURA Consulting Unavailable EZIO ., MARY MIKE Consulting Unavailable ZAC II, JODI Consulting Unavailable BORIS PITTMAN Consulting Unavailable KEL MONTGOMERY Primary Care Unavailable ALEXANDER ., DR JASIEL Hutchinson Admitting Unavaila ble GRDAVEY ., DR JASIEL Hutchinson Attending Unavaila ble ALEXANDER ., DR JASIEL Hutchinson Consulting Unavaila laura MONTGOMERY KEL Primary Care Unavailable KEL MONTGOMERY Admitting Unavailable KEL MONTGOMERY Attending Unavailable ADRIANA KIM Admitting Unavailable MELISSA, NONE LISTED Primary Care Unavaila laura HERNANDEZ, DR BARBARA Greer Consulting Unavailable ADRIANA KIM Attending Unavailable ADRIANA KIM Consulting Unavailable KEL MONTGOMERY Primary Care Unavailable GRILLIS ., DR JASIEL Hutchinson Admitting Unavaila ble GRILLICalin ., DR JASIEL Hutchinson Attending Unavaila ble GRILLICalin ., DR JASIEL Hutchinson Consulting Unavaila JASIEL Avelar Consulting Unavailable ESPERANZA LAMAR Consulting Unavailable SUSIE KEMP Consulting Unavailable KEL MONTGOMERY Primary Care Unavailable ADRIANA KIM Admitting Unavailable ADRIANA KIM Attending Unavailable ADRIANA KIM Consulting Unavailable LARISSA CHOI Consulting Unavailable MELISSA, NONE LISTED Primary Care UnavailLOS Barrios Consulting Unavailable LOS VENTURA Admitting Unavailable HIGHLANDER, LOS Mtz Attending Unavailable MARIOLA INFANTE Consulting Unavailable REQUEST, NONE LISTED Primary Care Unavaila ble HIGHLANDER, LOS Mtz Admitting Unavailable HIGHLANDER, LOS Mtz Attending Unavailable ZIEBER, DR TERI Padilla Consulting Unavailable HIGHLANDER, LOS Mtz Consulting Unavailable REQUEST, DR NONE LISTED Primary Care Unavaila ble HOY ., DR BUTLER Consulting Unavailable HOY ., DR BUTLER Admitting Unavailable HOY ., DR BUTLER Attending Unavailable NEEL WEBBER Consulting Unavailable VALENTINA, [facility] Primary Care Unavailable VALENTINA, KEL Admitting Unavailable VALENTINA, KEL Attending Unavailable VALENTINA, [facility] Primary Care Unavailable VALENTINA, KEL Admitting Unavailable VALENTINA, KEL Attending Unavailable VALENTINA, KEL Consulting Unavailable RAI ALVARENGA Admitting Unavailable COLETTE, RAI Attending Unavailable VALENTINA, [facility] Primary Care Unavailable COLETTE, RAI Consulting Unavailable VALENTINA, KEL Primary Care Unavailable HIGHLANDER, LOS Mtz Attending Unavailable HIGHLANDER, LOS Mtz Consulting Unavailable HIGHLANDER, LOS D Admitting Unavailable VALENTINA, KEL Primary Care Unavailable HIGHLANDER, LOS D Attending Unavailable HIGHLANDER, LOS D Admitting Unavailable WEST, DR BARBARA Greer Consulting Unavailable HIGHLANDER, LOS Mtz Consulting Unavailable VALENTINA, [facility] Primary Care Unavailable GRILLIS ., DR JASIEL Hutchinson Consulting Unavaila ble GRILLIS ., DR JASIEL Hutchinson Admitting Unavaila ble GRILLIS ., DR JASIEL Hutchinson Attending Unavaila ble VALENTINA, [facility] Primary Care Unavailable GRILLIS ., DR JASIEL Htuchinson Admitting Unavaila ble GRILLIS ., DR JASIEL Hutchinson Attending Unavaila ble GRILLIS ., DR JASIEL Hutchinson Consulting Unavaila ble GIOVANNA, OLLIE JOY Consulting Unava ilESPERANZA Moody Consulting Unavailable VALENTINA, KEL Primary Care Unavailable HIGHLANDER, LOS Mtz Attending Unavailable HIGHLANDER, LOS Mtz Consulting Unavailable HIGHLANDER, PETER D Admitting Unavailable VALENTINA, KEL Primary Care Unavailable HIGHLANDER, PETER D Admitting Unavailable HIGHLANDER, LOS D Attending Unavailable VALENTINA, KEL Primary Care [...] Facility (3 sources) Aspirin Drug Allergy Unknown Lemon Other (3 sources) Latex Propensity to adverse reactions Unknown Lemon Other (2 sources) Aspirin Drug Allergy [facility] Rep[facility] (2 sources) Latex Drug allergy (disorder) [facility] Medications Current Medications Medication Drug Class(es) Dates Sig (Normalized) Sig (Original) amitriptyline hydrochloride 50 mg oral tablet (3 sources) Tricyclic Antidepressant take 1 tablet by mouth every twenty-four hours Amitriptyline HCl 50 MG 1 tablet at bedtime Orally Once a day Active cholecalciferol 1.25 mg oral capsule (2 sources) Vitamin D take 1 capsule by mouth every week Vitamin D3 1.25 MG (87410 UT) 1 capsule Orally once per week [...] by: Elizabeth INFANTE Date: 2022-11-10 23:57 Normal [facility] US KIDNEYS BLADDERon 023 US KIDNEYS BLADDER US KIDNEYS BLADDER EXAM DATE: 09/23/2022 6:34 AM [facility] COMPARISON: None available. INDICATION: Recurrent UTI. TECHNIQUE: Real-time ultrasound scanning of the kidneys and bladder was performed by the family development extension specialist. Radio Program Director static images are submitted for review. FINDINGS: [...] NEEL WEBBER Date: 2022-09-23 14:49 Normal [facility] CBC AUTO DIFFon 08-15-2022 BASO # 0.0 103/ul Normal 0.0-0.1 [facility] Comment on above: Performed By: #### C BC #### [facility] [address] [place] [address] Dr. Arianna Hamlin Basophils/100 WBC (Bld) 0.3 % Normal 0.2-2.0 [facility] Comment on above: Performed By: #### C BC #### [facility] [address] [place] [address] Dr. Arianna Hamlin EO # 0.0 103/ul Normal 0.0-0.7 [facility] Comment on above: Performed By: #### C BC #### [facility] [address] [place] [address] Dr. Arianna Hamlin Eosinophils/100 WBC (Bld) 0.1 % Critically low 0.9-7.0 [facility] Comment on above: Performed By: #### C BC #### [facility] [address] [place] [address] Dr. Arianna Hamlin Erythrocyte distribution width (RBC) [Ratio] 12.2 % Normal 11.0-15.0 [facility] Comment on above: Performed By: #### C BC #### [facility] [address] [place] [address] Dr. Arianna Hamlin Hematocrit (Bld) [Volume fraction] 35.9 % Critically low 36.0-48.0 [facility] Comment on above: Performed By: #### C BC #### [facility] [address] [place] [address] Dr. Arianna Hamlin Hemoglobin (Bld) [Mass/Vol] 12.0 g/dL Normal 12.0-16.0 [facility] Comment on above: Performed By: #### C BC #### [facility] [address] [place] [address] Dr. Arianna Hamlin IG # 0.02 10e3/ul Normal 0.00-0.03 [facility] Comment on above: Performed By: #### C BC #### [facility] [address] [place] [address] Dr. Arianna Hamlin IG % 0.3 % Normal 0.0-0.5 [facility] Comment on above: Performed By: #### C BC #### [facility] [address] [place] [address] Dr. Arianna Hamlin LYMPH # 1.8 103/ul Normal 1.2-3.8 [facility] Comment on above: Performed By: #### C BC #### [facility] [address] [place] [address] Dr. Arianna Hamlin Lymphocytes/100 WBC (Bld) 22.8 % Normal 20.5-60.0 [facility] Comment on above: Performed By: #### C BC #### [facility] [address] [place] [address] Dr. Arianna Hamlin MANUAL DIFF REQ NO Normal [facility] Comment on above: Performed By: #### C BC #### [facility] [address] [place] [address] Dr. Arianna Hamlin MCH (RBC) [Entitic mass] 27.8 pg Normal 26.7-34.0 [facility] Comment on above: Performed By: #### C BC #### [facility] [address] [place] [address] Dr. Arianna Hamlin MCHC (RBC) [Mass/Vol] 33.4 g/dL Normal 29.9-35.2 [facility] Comment on above: Performed By: #### C BC #### [facility] [address] [address] [address] Arianna Hamlin MCV (RBC) [Entitic vol] 83.1 fL Normal 81.0-99.0 [facility] Comment on above: Performed By: #### C BC #### [facility] [address] [place] [address] Dr. Arianna Hamlin MONO # 0.9 103/ul Critically high 0.3-0.8 [facility] Comment on above: Performed By: #### C BC #### [facility] [address] [place] [address] Dr. Arianna Hamlin Monocytes/100 WBC (Bld) 10.8 % Normal 1.7-12.0 [facility] Comment on above: Performed By: #### C BC #### [facility] [address] [place] [address] Dr. Arianna Hamlin NEUT # 5.2 103/ul Normal 1.4-6.5 [facility] Comment on above: Performed By: #### C BC #### [facility] [address] [place] [address] Dr. Arianna Hamlin Neutrophils/100 WBC (Bld) 65.7 % Normal 43.0-75.0 [facility] Comment on above: Performed By: #### C BC #### [facility] [address] [place] [address] Dr. Arianna Hamlin Platelet mean volume (Bld) [Entitic vol] 10.2 fL Normal 9.5-13.5 [facility] Comment on above: Performed By: #### C BC #### [facility] [address] [place] [address] Dr. Arianna Hamlin PLT 243 103/ul Normal 150-450 [facility] Comment on above: Performed By: #### C BC #### [facility] [address] [place] [address] Dr. Arianna Hamlin RBC 4.32 106/ul Normal 4.20-5.40 [facility] Comment on above: Performed By: #### C BC #### [facility] [address] [place] [address] Dr. Arianna Hamlin WBC 7.9 103/ul Normal 4.0-11.0 [facility] Comment on above: Performed By: #### C BC #### [facility] [address] [place] [address] Dr. Arianna Hamlin PROF CHEM 8 (BAS METB)on Anion gap [Moles/Vol] 10.8 mmol/L Normal Th [facility] Comment on above: Performed By: #### B MP #### [facility] [address] [place] [address] Dr. Arianna Hamlin Calcium [Mass/Vol] 9.0 mg/dL Normal 8.5-10.1 [facility] Comment on above: Performed By: #### B MP #### [facility] [address] [place] [address] Dr. Arianna Hamlin Chloride [Moles/Vol] 101 mmol/L Normal 98-107 [facility] Comment on above: Performed By: #### B MP #### [facility] [address] [place] [address] Dr. Arianna Hamlin CO2 [Moles/Vol] 30.8 mmol/L Normal 21.0-32.0 [facility] Comment on above: Performed By: #### B MP #### [facility] [address] [place] [address] Dr. Arianna Hamlin Creatinine [Mass/Vol] 0.79 mg/dL Normal 0.55-1.02 [facility] Comment on above: Performed By: #### B MP #### [facility] [address] [place] [address] Dr. Arianna Hamlin EGFR-AF TRINIDADIAN >60 Normal >=60 [facility] Comment on above: Performed By: #### B MP #### [facility] [address] [place] [address] Dr. Arianna Hamlin EGFR-NON AF TRINIDADIAN >60 Normal >=60 [facility] Comment on above: Performed By: #### B MP #### [facility] [address] [place] [address] Dr. Arianna Hamlin Glucose [Mass/Vol] 110 mg/dL Critically high 74-106 [facility] Comment on above: Performed By: #### B MP #### [facility] [address] [address] [address] Arianna Hamlin Potassium [Moles/Vol] 3.6 mmol/L Normal 3.5-5.1 [facility] Comment on above: Performed By: #### B MP #### [facility] [address] [address] [address] Arianna Hamlin Sodium [Moles/Vol] 139 mmol/L Normal 136-145 [facility] Comment on above: Performed By: #### B MP #### [facility] [address] [address] [address] Arianna Hamlin Urea nitrogen [Mass/Vol] 8.0 mg/dL Normal 7.0-18.0 [facility] Comment on above: Performed By: #### B MP #### [facility] [address] [place] [address] Dr. Arianna Hamlin Urea nitrogen/Creatinine [Mass ratio] 10.1 mg/mg Normal [facility] Comment on above: Performed By: #### B MP #### [facility] [address] [place] [address] Dr. Arianna Hamlin UA RANDOMon 08-15-2022 Bilirubin Ql (U) Negative Normal NEGATIVE [facility] Comment on above: Performed By: #### C BC #### [facility] [address] [place] [address] Dr. Arianna Hamlin Clarity (U) CLEAR Normal CLEAR [facility] Comment on above: Performed By: #### C BC #### [facility] [address] [place] [address] Dr. Arianna Hamlin Glucose Ql (U) Negative Normal NEGATIVE [facility] Comment on above: Performed By: #### C BC #### [facility] [address] [place] [address] Dr. Arianna Hamlin Hemoglobin Ql (U) Negative Normal NEGATIVE [facility] Comment on above: Performed By: #### C BC #### [facility] [address] [place] [address] Dr. Arianna Hamlin Ketones Ql (U) Negative Normal NEGATIVE [facility] Comment on above: Performed By: #### C BC #### [facility] [address] [place] [address] Dr. Arianna Hamlin LEUKOCYTES MODERATE Abnormal NEGATIVE [facility] Comment on above: Performed By: #### C BC #### [facility] [address] [place] [address] Dr. Arianna Hamlin Nitrite Ql (U) Negative Normal NEGATIVE [facility] Comment on above: Performed By: #### C BC #### [facility] [address] [place] [address] Dr. Arianna Hamlin pH (U) 7.0 [pH] Normal 5-9 [facility] Comment on above: Performed By: #### C BC #### [facility] [address] [place] [address] Dr. Arianna Hamlin SPEC GRAVITY 1.010 Normal 1.005-<=1.025 [facility] Comment on above: Performed By: #### C BC #### [facility] [address] [place] [address] Dr. Arianna Hamlin UA PROTEIN Negative Normal NEGATIVE/ TRACE [facility] Comment on above: Performed By: #### C BC #### [facility] [address] [place] [address] Dr. Arianna Hamlin Urobilinogen Qn (U) 0.2 {Ayden'U}/dL Normal 0.2 - 1. 0 [facility] Comment on above: Performed By: #### C BC #### [facility] [address] [place] [address] Dr. Arianna Hamlin XR FOOT RT 2Von [...] BARBARA HERNANDEZ Date: 2022-08-15 08:59 Normal [facility] POINT OF CARE GLUCOSEon 07-30 Glucose [Mass/Vol] 138 mg/dL Critically high 74-106 [facility] Comment on above: Performed By: #### P OCGLUC #### [facility] [address] [place] [address] Dr. Arianna Hamlin Glucose [Mass/Vol] 94 mg/dL Normal 74-106 [facility] Comment on above: Performed By: #### P OCGLUC #### [facility] [address] [place] [address] Dr. Arianna Hamlin CBC AUTO DIFFon 08-08-2022 BASO # 0.0 103/ul Normal 0.0-0.1 [facility] Comment on above: Performed By: #### C BC #### [facility] [address] [place] [address] Dr. Arianna Hamlin Basophils/100 WBC (Bld) 0.7 % Normal 0.2-2.0 [facility] Comment on above: Performed By: #### C BC #### [facility] [address] [place] [address] Dr. Arianna Hamlin EO # 0.1 103/ul Normal 0.0-0.7 [facility] Comment on above: Performed By: #### C BC #### [facility] [address] [place] [address] Dr. Arianna Hamlin Eosinophils/100 WBC (Bld) 1.3 % Normal 0.9-7.0 [facility] Comment on above: Performed By: #### C BC #### [facility] [address] [place] [address] Dr. Arianna Hamlin Erythrocyte distribution width (RBC) [Ratio] 12.3 % Normal 11.0-15.0 [facility] Comment on above: Performed By: #### C BC #### [facility] [address] [place] [address] Dr. Arianna Hamlin Hematocrit (Bld) [Volume fraction] 38.4 % Normal 36.0-48.0 [facility] Comment on above: Performed By: #### C BC #### [facility] [address] [place] [address] Dr. Arianna Hamlin Hemoglobin (Bld) [Mass/Vol] 13.2 g/dL Normal 12.0-16.0 [facility] Comment on above: Performed By: #### C BC #### [facility] [address] [place] [address] Dr. Arianna Hamlin IG # 0.01 10e3/ul Normal 0.00-0.03 [facility] Comment on above: Performed By: #### C BC #### [facility] [address] [place] [address] Dr. Arianna Hamlin IG % 0.2 % Normal 0.0-0.5 [facility] Comment on above: Performed By: #### C BC #### [facility] [address] [place] [address] Dr. Arianna Hamlin LYMPH # 1.8 103/ul Normal 1.2-3.8 [facility] Comment on above: Performed By: #### C BC #### [facility] [address] [place] [address] Dr. Arianna Hamlin Lymphocytes/100 WBC (Bld) 30.8 % Normal 20.5-60.0 [facility] Comment on above: Performed By: #### C BC #### [facility] [address] [place] [address] Dr. Arianna Hamlin MANUAL DIFF REQ NO Normal [facility] Comment on above: Performed By: #### C BC #### [facility] [address] [place] [address] Dr. Arianna Hamlin MCH (RBC) [Entitic mass] 27.7 pg Normal 26.7-34.0 [facility] Comment on above: Performed By: #### C BC #### [facility] [address] [place] [address] Dr. Arianna Hamlin MCHC (RBC) [Mass/Vol] 34.4 g/dL Normal 29.9-35.2 [facility] Comment on above: Performed By: #### C BC #### [facility] [address] [address] [address] Arianna Hamlin MCV (RBC) [Entitic vol] 80.7 fL Critically low 81.0-99.0 [facility] Comment on above: Performed By: #### C BC #### [facility] [address] [place] [address] Dr. Arianna Hamlin MONO # 0.4 103/ul Normal 0.3-0.8 [facility] Comment on above: Performed By: #### C BC #### [facility] [address] [place] [address] Dr. Arianna Hamlin Monocytes/100 WBC (Bld) 7.1 % Normal 1.7-12.0 [facility] Comment on above: Performed By: #### C BC #### [facility] [address] [place] [address] Dr. Arianna Hamlin NEUT # 3.6 103/ul Normal 1.4-6.5 [facility] Comment on above: Performed By: #### C BC #### [facility] [address] [place] [address] Dr. Arianna Hamlin Neutrophils/100 WBC (Bld) 59.9 % Normal 43.0-75.0 [facility] Comment on above: Performed By: #### C BC #### [facility] [address] [place] [address] Dr. Arianna Hamlin Platelet mean volume (Bld) [Entitic vol] 9.5 fL Normal 9.5-13.5 [facility] Comment on above: Performed By: #### C BC #### [facility] [address] [place] [address] Dr. Arianna Hamlin PLT 248 103/ul Normal 150-450 [facility] Comment on above: Performed By: #### C BC #### [facility] [address] [place] [address] Dr. Arianna Hamlin RBC 4.76 106/ul Normal 4.20-5.40 [facility] Comment on above: Performed By: #### C BC #### [facility] [address] [place] [address] Dr. Arianna Hamlin WBC 5.9 103/ul Normal 4.0-11.0 [facility] Comment on above: Performed By: #### C BC #### [facility] [address] [place] [address] Dr. Arianna Hamlin Covid-19 PCR ([facility])on 07-30 SARS-CoV-2 (COVID-19) RNA RICHARD+probe Ql (Unsp spec) Not detected Normal NOT DETECTED [facility] Comment on above: Result Comment: This test is not yet approved or cleared by the [place] FDA. When there are no FDA-approved or cleared tests available, and other criteria are met, FDA can make tests available under an emergency access mechanism called an Emergency Use Authorization (EUA). The EUA for this test is supported by the [place] of Health and Human Service's (HHS's) declaration [...] consistent with SARS-CoV-2. Performed By: #### C VDTB #### [facility] [address] [place] [id number] [address] Arianna Hamlin PROF CHEM 8 (BAS METB)on Anion gap [Moles/Vol] 10.1 mmol/L Normal [facility] Comment on above: Performed By: #### B MP #### [facility] [address] [place] [address] [id number] [address] Arianna Hamlin Calcium [Mass/Vol] 9.2 mg/dL Normal 8.5-10.1 [facility] Comment on above: Performed By: #### B MP #### [facility] [address] [place] [id number] [address] Arianna Hamlin Chloride [Moles/Vol] 103 mmol/L Normal 98-107 [facility] Comment on above: Performed By: #### B MP #### [facility] [address] [address] [address] Arianna Hamlin CO2 [Moles/Vol] 30.7 mmol/L Normal 21.0-32.0 [facility] Comment on above: Performed By: #### B MP #### [facility] [address] [address] [address] Arianna Hamlin Creatinine [Mass/Vol] 0.86 mg/dL Normal 0.55-1.02 [facility] Comment on above: Performed By: #### B MP #### [facility] [address] [address] [address] Arianna Hamlin EGFR-AF TRINIDADIAN >60 Normal >=60 [facility] Comment on above: Performed By: #### B MP #### [facility] [address] [address] [address] Arianna Hamlin EGFR-NON AF TRINIDADIAN >60 Normal >=60 [facility] Comment on above: Performed By: #### B MP #### [facility] [address] [address] [address] Arianna Hamlin Glucose [Mass/Vol] 77 mg/dL Normal 74-106 [facility] Comment on above: Performed By: #### B MP #### [facility] [facility] [address] [place] [address] Dr. Arianna Hamlin Potassium [Moles/Vol] 3.8 mmol/L Normal 3.5-5.1 [facility] Comment on above: Performed By: #### B MP #### [facility] [address] [address] [address] Arianna Hamlin Sodium [Moles/Vol] 140 mmol/L Normal 136-145 The [facility] Comment on above: Performed By: #### B MP #### [facility] [address] [address] [address] Arianna Hamlin Urea nitrogen [Mass/Vol] 8.0 mg/dL Normal 7.0-18.0 [facility] Comment on above: Performed By: #### B MP #### [facility] [address], [place] [address] Dr. Arianna Hamlin Urea nitrogen/Creatinine [Mass ratio] 9.3 mg/mg Normal [facility] Comment on above: Performed By: #### B MP #### [facility] [address], [place] [address] Dr. Arianna Hamlin Covid-19 PCR ([facility])on SARS-CoV-2 (COVID-19) RNA RICHARD+probe Ql (Unsp spec) Not detected Normal NOT DETECTED [facility] Comment on above: Result Comment: This test is not yet approved or cleared by the [place] FDA. When there are no FDA-approved or cleared tests available, and other criteria are met, FDA can make tests available under an emergency access mechanism called an Emergency Use Authorization (EUA). The EUA for this test is supported by the [employer] of Health and Human Service's (HHS's) declaration [...] SARS-CoV-2. Performed By: #### B MP #### [facility] [address] [place] [address] [address] [address] Arianna Hamlin MRI ANKLE RT WO [...] DALTON ALVARENGA Date: 2022-06-24 12:09 Normal [facility] H PYLORI TISSUEon 05-17-2022 H PYL TISSUE, UREASE Negative Normal NEGATIVE [facility] Comment on above: Performed By: #### B MP #### [facility] [address] [place] [address] [address] [address] Arianna Hamlin Covid-19 PCR ([facility])on 04-29 SARS-CoV-2 (COVID-19) RNA RICHARD+probe Ql (Unsp spec) Not detected Normal NOT DETECTED [facility] Comment on above: Result Comment: This test is not yet approved or cleared by the [place] FDA. When there are no FDA-approved or cleared tests available, and other criteria are met, FDA can make tests available under an emergency access mechanism called an Emergency Use Authorization (EUA). The EUA for this test is supported by the [place] of Health and Human Service's (HHS's) declaration [...] SARS-CoV-2. Performed By: #### C VDTBH #### [facility] [address] [place] [address] Dr. Arianna Hamlin FLORINA by IFAon 05-11-2022 Antinuclear Antibodies, IFA Negative Normal [facility] Comment on above: Result Comment: Nega tive <1:80 Borderline 1:80 Positive >1:80 ICAP nomenclature: AC-0 For more information about Hep-2 cell patterns use ANApatterns.org, the official website for the International Consensus on Antinuclear Antibody (FLORINA) Patterns (ICAP). Performed By: #### B MP #### [facility] [address], [place] [address] Dr. Arianna Hamlin CULTURE URINEon 05-11-2022 CULTURE [...] Trimethoprim/Sulfameth oxazole <=20 S C Normal [facility] Comment on above: Performed By: #### C BC #### [facility] [address] [place] [address] Dr. Arianna Hamlin ANTISTREPTOLYSIN O AB (ASO)o n 05-10-2022 Antistreptolysin O Ab 45.8 IU/mL Normal 0.0-200.0 [facility] Comment on above: Performed By: #### C BC #### [facility] [address] [place] [address] Dr. Arianna Hamlin RHEUMATOID FACTORon 05-10-20 22 RA Latex Turbid. <10.0 Normal <14.0 The [facility] Comment on above: Performed By: #### B MP #### [facility] [address] [place] [address] Dr. Arianna Hamlin CRPon 05-08-2022 CRP [Mass/Vol] mg/L Normal <=1.0 The [facility] Comment on above: Performed By: #### C BC #### [facility] [address] [place] [address] Dr. Arianna Hamlin UA RANDOM W/MICROSCOPICon BACTERIA LARGE Abnormal NONE SEEN [facility] Comment on above: Performed By: #### U AMIC #### [facility] [address] [place] [address] Dr. Arianna Hamlin Bilirubin Ql (U) Negative Normal NEGATIVE [facility] Comment on above: Performed By: #### U AMIC #### [facility] [address] [address] [address] Arianna Hamlin CAST NONE SEEN Normal NONE SEEN [facility] Comment on above: Performed By: #### U AMIC #### [facility] [address] [address] [address] Arianna Hamlin Clarity (U) CLEAR Normal CLEAR [facility] Comment on above: Performed By: #### U AMIC #### [facility] [address] [address] [address] Arianna Hamlin Color (U) LT. YELLOW Normal YELLOW [facility] Comment on above: Performed By: #### U AMIC #### [facility] [address] [address] [address] Arianna Hamlin Crystals LM Nom (Urine sed) NONE SEEN Normal NONE SEEN [facility] Comment on above: Performed By: #### U AMIC #### [facility] [address] [place] [address] Dr. Arianna Hamlin Epithelial cells LM Ql (Urine sed) FEW Abnormal NONE SEEN /RARE [facility] Comment on above: Performed By: #### U AMIC #### [facility] [address] [address] [address] Arianna Hamlin Glucose Ql (U) Negative Normal NEGATIVE [facility] Comment on above: Performed By: #### U AMIC #### [facility] [address] [place] [address] Dr. Arianna Hamlin Hemoglobin Ql (U) SMALL Abnormal NEGATIVE [facility] Comment on above: Performed By: #### U AMIC #### [facility] [address] [address] [address] Arianna Hamlin Ketones Ql (U) TRACE Abnormal NEGATIVE [facility] Comment on above: Performed By: #### U AMIC #### [facility] [address] [address] [address] Arianna Hamlin LEUKOCYTES MODERATE Abnormal NEGATIVE [facility] Comment on above: Performed By: #### U AMIC #### [facility] [address] [address] [address] Arianna Hamlin MUCOUS NONE SEEN Normal NONE SEEN [facility] Comment on above: Performed By: #### U AMIC #### [facility] [address] [address] [address] Arianna Hamlin Nitrite Ql (U) Positive Abnormal NEGATIVE [facility] Comment on above: Performed By: #### U AMIC #### [facility] [address] [address] [address] Arianna Hamlin pH (U) 6.0 [pH] Normal 5-9 [facility] Comment on above: Performed By: #### U AMIC #### [facility] [address] [address] [address] Arianna Hamlin RBC 2-5 Abnormal 0-2 [facility] Comment on above: Performed By: #### U AMIC #### [facility] [address] [place] [address] Dr. Arianna Hamlin SPEC GRAVITY >=1.030 Abnormal 1.005-<=1.025 The [facility] Comment on above: Performed By: #### U AMIC #### [facility] [address] [address] [address] Arianna Hamlin UA PROTEIN Negative Normal NEGATIVE/ TRACE [facility] Comment on above: Performed By: #### U AMIC #### [facility] [address] [address] [address] Arianna Hamlin Urobilinogen Qn (U) 0.2 {Ayden'U}/dL Normal 0.2 - 1. 0 [facility] Comment on above: Performed By: #### U AMIC #### [facility] [address] [place] [address] Dr. Arianna Hamlin WBC 20-50 Abnormal NONE SEEN [facility] Comment on above: Performed By: #### U AMIC #### [facility] [address] [place] [address] Dr. Arianna Hamlin URIC ACID SERUMon 05-08-2022 Urate [Mass/Vol] 4.1 mg/dL Normal 2.6-6.0 [facility] Comment on above: Performed By: #### U BETY, CRP #### [facility] [address] [address] [address] Arianna Hamlin XR hip RT min 2V(w/wo pelvis )*on 01-27-2022 XR hip RT min 2V(w/wo pelvis)* [facility] [place] [address] [place] [address] XRay Report Signed Patient: Simin Caro MR#: [id number] : 1970 Acct:[id number] Age/Sex: 51 / F ADM Date: 01/27/22 [place] [facility] [place]: Type: [facility] CLI Attending Dr: Rai Alvarenga DO Copies to: [...] PROCESS.. Impression dictated by: Fabio Oates Jr., DHarrisOHarris01/27/2022 9:14 AM Dictation Location: [place] [address] Transcribed By: [facility] 01/27/22913 Dictated By: Fabio Oates Jr, DO 01/27/22 0910 Signed By: 01/27/22 0914 Normal [facility] CBC AUTO DIFFon 01-24-2022 BASO # 0.1 103/ul Normal 0.0-0.1 [facility] Comment on above: Performed By: #### C BC #### [facility] [address] [address] [address] Arianna Hamlin Basophils/100 WBC (Bld) 0.9 % Normal 0.2-2.0 [facility] Comment on above: Performed By: #### C BC #### [facility] [address] [place] [address] Dr. Arianna Hamlin EO # 0.1 103/ul Normal 0.0-0.7 [facility] Comment on above: Performed By: #### C BC #### [facility] [address] [place] [address] Dr. Arianna Hamlin Eosinophils/100 WBC (Bld) 2.2 % Normal 0.9-7.0 [facility] Comment on above: Performed By: #### C BC #### [facility] [address] [place] [address] Dr. Arianna Hamlin Erythrocyte distribution width (RBC) [Ratio] 12.7 % Normal 11.0-15.0 [facility] Comment on above: Performed By: #### C BC #### [facility] [address] [place] [address] Dr. Arianna Hamlin Hematocrit (Bld) [Volume fraction] 42.6 % Normal 36.0-48.0 [facility] Comment on above: Performed By: #### C BC #### [facility] [address] [place] [address] Dr. Arianna Hamlin Hemoglobin (Bld) [Mass/Vol] 14.2 g/dL Normal 12.0-16.0 [facility] Comment on above: Performed By: #### C BC #### [facility] [address] [place] [address] Dr. Arianna Hamlin IG # 0.02 10e3/ul Normal 0.00-0.03 [facility] Comment on above: Performed By: #### C BC #### [facility] [address] [place] [address] Dr. Arianna Hamlin IG % 0.4 % Normal 0.0-0.5 [facility] Comment on above: Performed By: #### C BC #### [facility] [address] [place] [address] Dr. Arianna Hamlin LYMPH # 2.0 103/ul Normal 1.2-3.8 [facility] Comment on above: Performed By: #### C BC #### [facility] [address] [place] [address] Dr. Arianna Hamlin Lymphocytes/100 WBC (Bld) 38.1 % Normal 20.5-60.0 [facility] Comment on above: Performed By: #### C BC #### [facility] [address] [place] [address] Dr. Arianna Hamlin MANUAL DIFF REQ NO Normal The [facility] Comment on above: Performed By: #### C BC #### [facility] [address] [place] [address] Dr. Arianna Hamlin MCH (RBC) [Entitic mass] 28.1 pg Normal 26.7-34.0 [facility] Comment on above: Performed By: #### C BC #### [facility] [address] [place] [address] Dr. Arianna Hamlin MCHC (RBC) [Mass/Vol] 33.3 g/dL Normal 29.9-35.2 [facility] Comment on above: Performed By: #### C BC #### [facility] [address] [place] [address] Dr. Arianna Hamlin MCV (RBC) [Entitic vol] 84.4 fL Normal 81.0-99.0 [facility] Comment on above: Performed By: #### C BC #### [facility] [address] [place] [address] Dr. Arianna Hamlin MONO # 0.4 103/ul Normal 0.3-0.8 [facility] Comment on above: Performed By: #### C BC #### [facility] [address] [place] [address] Dr. Arianna Hamlin Monocytes/100 WBC (Bld) 7.3 % Normal 1.7-12.0 [facility] Comment on above: Performed By: #### C BC #### [facility] [address] [place] [address] Dr. Arianna Hamlin NEUT # 2.7 103/ul Normal 1.4-6.5 [facility] Comment on above: Performed By: #### C BC #### [facility] [address] [place] [address] Dr. Arianna Hamlin Neutrophils/100 WBC (Bld) 51.1 % Normal 43.0-75.0 [facility] Comment on above: Performed By: #### C BC #### [facility] [address] [place] [address] Dr. Arianna Hamlin Platelet mean volume (Bld) [Entitic vol] 9.8 fL Normal 9.5-13.5 [facility] Comment on above: Performed By: #### C BC #### [facility] [address] [place] [address] Dr. Arianna Hamlin PLT 276 103/ul Normal 150-450 [facility] Comment on above: Performed By: #### C BC #### [facility] [address] [place] [address] Dr. Arianna Hamlin RBC 5.05 106/ul Normal 4.20-5.40 [facility] Comment on above: Performed By: #### C BC #### [facility] [address] [place] [address] Dr. Arianna Hamlin WBC 5.4 103/ul Normal 4.0-11.0 [facility] Comment on above: Performed By: #### C BC #### [facility] [address] [place] [address] Dr. Arianna Hamlin PROF 14(COMP METB)on 022 Albumin [Mass/Vol] 4.2 g/dL Normal 3.4-5.0 [facility] Comment on above: Performed By: #### B MP #### [facility] [address] [place] [address] Dr. Arianna Hamlin Albumin/Globulin [Mass ratio] 1.3 {ratio} Normal [facility] Comment on above: Performed By: #### B MP #### [facility] [address] [place] [address] Dr. Arianna Hamlin ALP [Catalytic activity/Vol] 92 U/L Normal 46-116 [facility] Comment on above: Performed By: #### B MP #### [facility] [address] [place] [address] Dr. rAianna Hamlin ALT [Catalytic activity/Vol] 25 U/L Normal 14-59 [facility] Comment on above: Performed By: #### B MP #### [facility] [address] [address] [address] Arianna Hamlin Anion gap [Moles/Vol] 10.4 mmol/L Normal Th e [facility] Comment on above: Performed By: #### B MP #### [facility] [address] [address] [address] Arianna Hamlin AST [Catalytic activity/Vol] 20 U/L Normal 15-37 [facility] Comment on above: Performed By: #### B MP #### [facility] [address] [address] [address] Arianna Hamlin Bilirubin [Mass/Vol] 0.2 mg/dL Normal 0.2-1.0 [facility] Comment on above: Performed By: #### B MP #### [facility] [address] [address] [address] Arianna Hamlin Calcium [Mass/Vol] 9.0 mg/dL Normal 8.5-10.1 [facility] Comment on above: Performed By: #### B MP #### [facility] [address] [address] [address] Arianna Hamlin Chloride [Moles/Vol] 103 mmol/L Normal 98-107 [facility] Comment on above: Performed By: #### B MP #### [facility] [address] [address] [address] Arianna Hamlin CO2 [Moles/Vol] 29.7 mmol/L Normal 21.0-32.0 [facility] Comment on above: Performed By: #### B MP #### [facility] [address] [address] [address] Arianna Hamlin Creatinine [Mass/Vol] 0.87 mg/dL Normal 0.55-1.02 [facility] Comment on above: Performed By: #### B MP #### [facility] [address] [address] [address] Arianna Hamlin EGFR-AF TRINIDADIAN >60 Normal >=60 [facility] Comment on above: Performed By: #### B MP #### [facility] [address] [address] [address] Arianna Hamlin EGFR-NON AF TRINIDADIAN >60 Normal >=60 [facility] Comment on above: Performed By: #### B MP #### [facility] [address] [address] [address] Arianna Hamlin Globulin (S) [Mass/Vol] 3.3 g/dL Normal [facility] Comment on above: Performed By: #### B MP #### [facility] [address] [address] [address] Arianna Hamlin Glucose [Mass/Vol] 99 mg/dL Normal 74-106 [facility] Comment on above: Performed By: #### B MP #### [facility] [address] [place] [address] Dr. Arianna Hamlin Potassium [Moles/Vol] 4.1 mmol/L Normal 3.5-5.1 [facility] Comment on above: Performed By: #### B MP #### [facility] [address] [place] [address] Dr. Arianna Hamlin Protein [Mass/Vol] 7.5 g/dL Normal 6.4-8.2 [facility] Comment on above: Performed By: #### B MP #### [facility] [address] [place] [address] Dr. Arianna Hamlin Sodium [Moles/Vol] 139 mmol/L Normal 136-145 [facility] Comment on above: Performed By: #### B MP #### [facility] [address] [place] [address] Dr. Arianna Hamlin Urea nitrogen [Mass/Vol] 11.0 mg/dL Normal 7.0-18.0 [facility] Comment on above: Performed By: #### B MP #### [facility] [address] [place] [address] Dr. Arianna Hamlin Urea nitrogen/Creatinine [Mass ratio] 12.6 mg/mg Normal [facility] Comment on above: Performed By: #### B MP #### [facility] [address] [place] [address] Dr. Arianna Hamlin Provider Letteron 09-06-2021 Provider Letter September 06, 2021 SIMIN CARO [address] [place] [id number] SIMIN CARO 1970 Dear Simin_ , We have been trying to reach you with no success. It is important that you return our call regarding your referral from Melinda Rodriguez upon receiving this letter. Also, at the time of your call, please provide us with your correct phone number. . Thank you for your prompt attention to this matter. Sincerely, General Surgery [phone] [facility] Physician Referralon 022 Physician Referral [phone] [id number] [facility] Vital Signs Date Time Vital Sign Value Performing Clinician Faci lity 02-03-2022 12:15-0400 Body height 160.02 cm Rai Alvarenga Other [facility] 02-03-2022 12:15-0400 Body mass index (BMI) [Ratio] 36.13 kg/m2 Rai Alvarenga Other [facility] 02-03-2022 12:15-0400 Body weight 92.53 kg Rai Alvarenga Other [facility] 01-27-2022 09:00-0400 Body height 160.02 cm Rai Alvarenga Other [facility] 01-27-2022 09:00-0400 Body mass index (BMI) [Ratio] 36.13 kg/m2 Rai Alvarenga Other [facility] 01-27-2022 09:00-0400 Body weight 92.53 kg Rai Alvarenga Other [facility] 10-31-2021 16:30-0400 Body height 160.02 cm Rai Alvarenga Other [facility] 10-31-2021 16:30-0400 Body mass index (BMI) [Ratio] 37.02 kg/m2 Rai Alvarenga Other [facility] 10-31-2021 16:30-0400 Body weight 94.8 kg Rai Alvarenga Other [facility] Other Encounters Encounter Date Encounter Type Care Provider Facility Start: 12-19-2022 End: 12-20-2022 ambulatory KEL VALENTINA Facility:[facility] Start: 11-14-2022 ambulatory KEL VALENTINA Facility: [facility] Start: 11-08-2022 End: 11-09-[address] NONE LISTED REQUEST Facility:[facility] Start: 10-18-2022 End: 10-19-[address] NONE LISTED REQUEST Facility:[facility] Start: 09-28-2022 End: 09-29-2022 ambulatory ADRIANA KIM Facility:[facility] Start: 09-23-2022 End: 09-24-[address] NONE LISTED REQUEST Facility:[facility] Start: 09-07-2022 End: 09-08-2022 ambulatory ADRIANA JUDY Facility:[facility] Start: 08-14-2022 End: 08-15-[address] NONE LISTED REQUEST Facility:[facility] Start: 08-10-2022 Encounter for preprocedural laboratory examination LOS VENTURA [facility] Start: 08-10-2022 ambulatory KEL VALENTINA Facility: [facility] Start: 08-08-2022 End: 08-09-2022 ambulatory KEL VALENTINA Facility:[facility] Start: 08-08-2022 End: 08-09-2022 Encounter for preprocedural laboratory examination KEL VALENTINA Facility:[facility] Start: 07-05-2022 End: 07-05-2022 ambulatory KEL VALENTINA Facility:[facility] Start: 07-01-2022 End: 07-02-2022 ambulatory KEL VALENTINA Facility:[facility] Start: 06-28-2022 End: 06-29-2022 ambulatory KEL [...] 02-03-2022 End: 02-03-2022 ambulatory Rai Alvarenga Other [facility] Start: 02-03-2022 Postop follow up vis it related to original px Rai Alvarenga [facility] Start: 01-27-2022 End: 01-27-2022 ambulatory Rai Alvarenga Other [facility] Start: 01-27-2022 Office outpatient vi sit 15 minutes Rai Alvarenga [facility] Start: 01-24-2022 End: 01-25-2022 ambulatory RAI ALVARENGA Facility:[facility] Start: 10-31-2021 End: 10-31-2021 ambulatory Rai Alvarenga [facility] Start: 10-31-2021 Office outpatient ne w 45 minutes Rai Alvarenga [facility] Immunizations Immunization Date Immunization Notes Care Provider Leoncio ware 05-16-2021 influenza, injectabl e, quadrivalent, preservative free Rai Alvarenga Other [facility] 01-01-2021 COVID-19 Vaccine Yari - Documentation Purposes Only Rai Alvarenga Other [facility] Other Payers Date Payer Category Payer Unknown [id number] 2.16.84 [id number] 1970 Unknown [id number] 2.16.84 0.1.462005.3.579.2.593 1970 Unknown [id number] 2.16.84 0.1.986311.3.579.2.593 1970 Unknown [id number] 2.16.84 0.1.381854.3.579.2.593 1970 Unknown [id number] 2.16.84 0.1.344375.3.579.2.593 1970 Unknown [id number] 2.16.84 0.1.927849.3.579.2.593 1970 Unknown [id number] 2.16.84 0.1.536556.3.579.2.593 1970 Unknown [id number] 2.16.84 0.1.962950.3.579.2.593 1970 Unknown [id number] 2.16.84 0.1.330225.3.579.2.593 1970 Unknown [id number] 2.16.84 0.1.154504.3.579.2.593 1970 Unknown [id number] 2.16.84 0.1.484894.3.579.2.593 1970 Unknown [id number] 2.16.84 0.1.910505.3.579.2.593 1970 Unknown [id number] 2.16.84 0.1.593867.3.579.2.593 1970 Unknown [id number] 2.16.84 0.1.736043.3.579.2.593 1970 Unknown [id number] 2.16.84 0.1.183345.3.579.2.593 1970 Unknown [id number] 2.16.84 0.1.881434.3.579.2.593 1970 Unknown [id number] 2.16.84 0.1.494687.3.579.2.593 1970 Unknown [id number] 2.16.84 0.1.945569.3.579.2.593 1970 Unknown [id number] 2.16.84 0.1.673687.3.579.2.593 1970 Unknown [id number] 2.16.84 0.1.909823.3.579.2.593 1970 Unknown [id number] 2.16.84 0.1.960917.3.579.2.593 1970 Unknown [id number] 2.16.84 0.1.527461.3.579.2.593 1959 [facility] [id number] 2.16.840.1.092342.19 1959 Self-pay Social History Date Type Detail Facility Sex Assigned At [facility] Clinical Notes 10-31-2021 to 12-19-2022 Note [...] authenticated by: LARISSA CHOI Date: 2022-12-19 11:40 [facility] 10-19-2022 Note PROCEDURE: XR FOOT R T [...] authenticated by: TERI KAY Date: 2022-10-19 08:47 [facility] 09-28-2022 Note PROCEDURE: XR FOOT R T [...] authenticated by: BARBARA HERNANDEZ Date: 2022-09-28 16:30 [facility] 09-08-2022 Note PROCEDURE: XR FOOT R T [...] authenticated by: TERI KAY Date: 2022-09-08 07:03 [facility] 08-15-2022 Note PROCEDURE: XR FOOT R T [...] by: BARBARA HERNANDEZ Date: 2022-08-15 08:58 [facility] 08-15-2022 Note PROCEDURE: XR FOOT R T [...] authenticated by: BARBARA HERNANDEZ Date: 2022-08-15 08:58 [facility] 06-15-2022 Note PROCEDURE: XR FOOT R T MIN 3 VIEWS COMPARISON: 09/08/2021 HISTORY: Pain in right foot FINDINGS: BONES:No acute fracture or dislocation. Stable [id number] degenerative change with joint space narrowing marginal osteophyte formation most significant in the midfoot SOFT TISSUES:Negative. No visible soft tissue swelling. EFFUSION:None visible. OTHER: Negative. IMPRESSION: Stable degenerative changes Electronically authenticated by: BARBARA HERNANDEZ Date: 2022-06-15 08:48 [facility] 02-03-2022 Evaluation note Encounter Date Diagnosis Assessment [...] - M65.331) Currently resolved. Continue to monitor [facility] Other 07-01-2022 Evaluation note* Encounter Date Diagnosis [...] as documented in the electronic medical record. 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 I have advised against the [facility] use of narcotic pain medication. I have [...] as documented in the electronic medical record. [facility] Other History general Narrative - Reported* Type Description Date Medical History Hypertension Medical History chronic depression Medical History hearing loss Surgical History hysterectomy-partial 2016 [facility] Other Summary Purpose Family History No Family History Records FoundNo Family History Records FoundNo Family History Records Found Advance Directives No Advanced Directives Records FoundNo Advanced Directives Records FoundNo Advanced Directives Records Found Additional Source Comments REASON FOR VISIT (unrecogniz ed section and content) Bilateral Carpal TunnelRight Hip PainRecheck Left Wrist INFORMATION SOURCE (unrecogn ized section and content) DATE CREATED AUTHOR 01/30/2022 [facility] DATE CREATED AUTHOR AUTHOR'S ORGANIZ ATION 02/17/2022 [facility] DATE CREATED AUTHOR AUTHOR'S ORGANIZ ATION 01/05/2023 [facility] FOR RECORDS PERTAINING TO PATIENTS WHO ARE [...] BE BASED ON THE PRIMARY CLINICAL RECORDS. [employer] provides no warranty or guarantee of the accuracy or completeness of information in this document.
[2024-01-10 06:44] LABS: Basophils Percent Auto 1.1 % (0.2-2.0); Eosinophils Absolute Auto 0.2 10^3/uL (0.0-0.7); Eosinophils Percent Auto 4.4 % (0.9-7.0); Hematocrit 40.7 % (36.0-48.0); Hemoglobin 13.7 g/dL (12.0-16.0); Immature Granulocytes Abs Auto 0.01 10^3/uL (0.00-0.03); Immature Granulocytes Pct Auto 0.3 % (0.0-0.5); Lymphocytes Absolute Auto 1.3 10^3/uL (1.2-3.8); Lymphocytes Percent Auto 34.8 % (20.5-60.0); Mean Corpuscular HGB Conc 33.7 g/dL (29.9-35.2); Mean Corpuscular Hemoglobin 27.4 pg (26.7-34.0); Mean Corpuscular Volume 81.4 fL (81.0-99.0); Mean Platelet Volume 9.5 fL (9.5-13.5); Monocytes Absolute Auto 0.4 10^3/uL (0.3-0.8); Neutrophils Absolute Auto 1.8 10^3/uL (1.4-6.5); Neutrophils Percent Auto 48.4 % (43.0-75.0); Platelet Count 241 10^3/uL (150-450); Red Cell Distribution Width 12.6 % (11.0-15.0); White Blood Count 3.7 10^3/uL (4.0-11.0)
[2024-01-10] MEDS: LACTATED RINGER'S SOLUTION 1,000 ML 50 ML IV ×2 (07:19→10:21)
[2024-01-10] MEDS: CEFAZOLIN SODIUM/DEXTROSE,ISO 2 GM/50 ML PIGGYBACK IV ×3 (07:51→23:26)
--- NOTE | 2024-01-10 07:59 | PC.NURSE ---
0729- Final timeout completed. 0732- Patient positioned per Dr. Smith. Right leg landmarked. O2 on at 3l/min via nc and patient placed monitor. 0735- Right femoral block initiated. 0738- Right femoral block completed. Patient tolerated it well. 0741- Right popliteal block initiated. 0745- Right popliteal block completed. Patient tolerated it well. Patient remains on o2 @3L/min and on monitor. See posted vital signs.
--- NOTE | 2024-01-10 09:30 | FL_ITS ---
[address] [address] Patient Name: LAWRENCE LIZAMA MRN: [id number] date: 1970 Sex: F [facility]igned [facility] Current Patient Location: [place] Accession/Order Number: [id number] Exam Date: 01/10/2024 09:30 Report Date: 01/11/2024 10:41 At the request of: LOS VENTURA Procedure: FL fluoroscopy <1hr NON-READ EXAM: FL fluoroscopy <1hr NON-READ HISTORY: TECHNIQUE: FINDINGS: Please see Operative Report. Electronically authenticated by: RADIOLOGIST NO Date: 01/11/2024 10:41
[2024-01-10] MEDS: SODIUM CHLORIDE 0.9% IRR (10:40)
[2024-01-10] MEDS: CEFAZOLIN SODIUM IRR (10:40)
[2024-01-10 12:30] LABS: Glucometer 104 mg/dL (74-106)
[2024-01-10] MEDS: KETOROLAC TROMETHAMINE 30 MG/ML VIAL IVP (12:44)
--- NOTE | 2024-01-10 12:47 | PM.ORONB ---
Brief Operative Note Date of procedure: 01/10/24 Pre-op diagnosis general: Right subtalar joint arthritis with nonunion, retained painful hardware, ankle arthritis and impingement, possible ankle instability Post-op diagnosis: other (Right subtalar joint arthritis with nonunion, retained painful hardware, ankle arthritis and impingement, ankle instability) Procedure: Procedure performed: Right subtalar joint fusion with excision of nonunion, ankle arthroscopy, removal of deep implanted hardware, lateral ankle stabilization with stress examination under intraoperative fluoroscopy Indications for procedure: Patient is a 53-year-old female who underwent subtalar and medial column fusion over a year ago. Her recovery was complicated by subtalar joint nonunion and due to work issues as well as not having insurance she was unable to undergo revision months ago. Once her insurance and work situation was resolved she decided to undergo the revision as recommended. She was educated on potential risks and benefits and related her point of maximal tenderness was the anterior ankle as well as the sinus tarsi. She related to symptoms of feeling unstable in the preoperative area therefore recommended stress examination under anesthesia with ligament repairs as needed. Intraoperative findings: Ankle arthroscopy revealed significant amount of acute and chronic impingement soft tissue as well as prominent screws noted in the talar neck. All hardware appeared to be firmly seated and bone quality was within normal limits. The medial column showed adequate osseous fusion under direct visualization while the subtalar joint did have areas of fibrotic soft tissue within the subtalar joint. There is no signs of infection. Stress examination of the ankle revealed a positive anterior drawer and varus tilt therefore decision was made to perform lateral ankle stabilization. Procedure in detail: Patient was seen in preoperative holding by myself at which time correct side and site were marked and consent was obtained. Regional anesthesia was performed by the anesthesia team and the patient was brought back to the operating theater placed on table supine position. General anesthesia was administered and the right lower extremity was prepped and draped in usual sterile fashion with a thigh tourniquet. Formal timeout was performed and the right lower extremity was exsanguinated and tourniquet was inflated. Standard anterior medial and anterior lateral portals over the anterior ankle were created and blunt dissection down to the ankle capsule was performed. Then a blunt trocar was used to access the ankle joint by placing it through the capsule. A camera was placed into the anterior medial portal and the tibiotalar joint was visualized noting significant impingement tissue as well as prominent screw threads. 3.5 mm aggressive shaver was inserted into the anterior lateral portal was used to resect all soft tissue impingement. The central aspects of the tibiotalar joint did have mild to moderate arthritic changes with no osteochondral defect visualized. Arthroscopic instrumentation was removed. With the aid of fluoroscopy an incision was placed on the posterior calcaneus over 2 subtalar screws. Combination sharp blunt dissection gained access to the heads of the screws and guidewires were inserted into the screws was identified. The screws were then removed with appropriate screwdriver. Then incision was placed along the medial column and a combination of sharp and blunt dissection gained access to the medial column while protecting all neurovascular and tendinous structures. Once the hardware was identified all plate screws were removed with appropriate screwdriver. A stab incision was placed over the navicular tuberosity and the talonavicular joint screw was identified and removed with appropriate screwdriver. There was a retained staple which was not clearly visualized and was not causing any impingement therefore it was left in place. Once hardware was removed fluoroscopy revealed 10 degrees of ankle joint dorsiflexion and full plantarflexion. Then on the back table bone void filler was prepared and was injected into the screw holes spanning the subtalar and talonavicular joints. This allograft was then allowed to harden. During this time incision was placed over the sinus tarsi and a combination of sharp and blunt dissection gained access to the subtalar joint. There was partial osseous fusion noted but there was soft tissue fibrosis noted within the joint. The joint was then prepared by excising all the fibrotic tissue and the bone was prepared with curettes, osteotomes and rongeurs. Then a 2.0 mm drill bit was used to subchondral drill the subtalar joint. Then SPARC allograft was packed into these areas after the joint was thoroughly irrigated. The subtalar joint was then fixated with a tapered fully threaded 6.5 millimeter screw which was placed from the dorsal medial talar neck spanning the subtalar joint. An additional screw was placed from the posterior calcaneus across the subtalar joint into the talar body. Both screws were placed under fluoroscopic guidance which was used to confirm safe and proper placement. The tourniquet had reached 120 minutes therefore was deflated noting a prompt hyperemic response. Under live fluoroscopy the ankle joint was stressed and anterior drawer and varus and valgus. There was notably positive anterior drawer and varus tilt therefore decision was made to perform lateral ankle stabilization. Incision over the subtalar joint was extended proximally over the distal fibula. Combination of sharp and blunt dissection gained access to the anterior talofibular ligament which was transected near its attachment on the fibula. A rongeur was used to make a trough on its anterior aspect and two 3.5 mm suture anchors were placed into the the fibula. The sutures from each anchor were placed through the anterior talofibular ligament and the ankle was held in a maximally dorsiflexed and everted position while the sutures were tied. Half of the sutures were cut and then needles were passed the back table while the remaining sutures were brought through the periosteum on the fibula then through the capsule and extensor retinaculum. The sutures were then tied again while holding the ankle in maximal dorsiflexion and eversion. Anterior drawer and talar tilt were now stable. All surgical sites were irrigated with copious saline. A dry sterile dressing and multilayer modified Koch posterior splint was then applied and was held in a neutral position while it was allowed to dry. Capillary refill to the right toes was brisk. Patient tolerated the procedure and anesthesia well was transferred to the recovery room with vital signs stable. Postoperative plan: Admit to medical surgical unit under the hospitalist care Nonweightbearing right lower extremity Consultation to physical therapy for gait training DVT prophylaxis, multimodal pain management and perioperative antibiotics were ordered. We will reevaluate the patient tomorrow as she may require a 1-2 night stay the plan is for discharge home once pain is controlled Patient is to follow-up with my office within a week from discharge Will follow Implants: Cerament bone void filler Sparc bone allograft Vilex headless cannulated 6.5 mm screws Anesthesia: regional and General-LMA Surgeon: Rl Salmeron [employer] Administrator: Gregorio Patel Estimated blood loss (mL): 100 Condition: stable Disposition: PACU
[2024-01-10] MEDS: HYDROMORPHONE HCL 0.5 MG/0.5 ML SYRINGE IV ×2 (12:49→13:02)
--- NOTE | 2024-01-10 13:08 | XR_ITS ---
[address] [address] Patient Name: LAWRENCE LIZAMA MRN: [id number] date: 1970 Sex: F Assigned Patient Location: [facility] Current Patient Location: [place] Accession/Order Number: [id number] Exam Date: 01/10/2024 13:00 Report Date: 01/11/2024 07:59 At the request of: ARIE PARKINSON Procedure: XR ankle RT min 3V PROCEDURE: XR foot RT min 3V, XR ankle RT min 3V COMPARISON: 10/24/2023 HISTORY: Postop x-ray FINDINGS: BONES:Interval revision of subtalar fusion with placement of 2 new screws across the posterior talocalcaneal joint. Removal of the dorsal hardware with the exception of a single stable across the midfoot. Severe degenerative changes of the midfoot and hindfoot with bony remodeling. Moderate osteoarthropathy tibiotalar joint. SOFT TISSUES:Postprocedural soft tissue swelling and subcutaneous emphysema EFFUSION:None visible. OTHER: Posterior splint obscures bone detail XR/XR ankle RT min 3V IMPRESSION: Revision of subtalar and midfoot fusion Electronically authenticated by: BARBARA HERNANDEZ Date: 01/11/2024 07:59
--- NOTE | 2024-01-10 13:08 | XR_ITS ---
[address] [address] Patient Name: LAWRENCE LIZAMA MRN: [id number] date: 1970 Sex: F Assigned Patient Location: [facility] Current Patient Location: [place] Accession/Order Number: [id number] Exam Date: 01/10/2024 13:00 Report Date: 01/11/2024 07:59 At the request of: ARIE PARKINSON Procedure: XR foot RT min 3V PROCEDURE: XR foot RT min 3V, XR ankle RT min 3V COMPARISON: 10/24/2023 HISTORY: Postop x-ray FINDINGS: BONES:Interval revision of subtalar fusion with placement of 2 new screws across the posterior talocalcaneal joint. Removal of the dorsal hardware with the exception of a single stable across the midfoot. Severe degenerative changes of the midfoot and hindfoot with bony remodeling. Moderate osteoarthropathy tibiotalar joint. SOFT TISSUES:Postprocedural soft tissue swelling and subcutaneous emphysema EFFUSION:None visible. OTHER: Posterior splint obscures bone detail XR/XR foot RT min 3V IMPRESSION: Revision of subtalar and midfoot fusion Electronically authenticated by: BARBARA HERNANDEZ Date: 01/11/2024 07:59
[2024-01-10 13:09] LABS: Glucometer 160 mg/dL (74-106)
--- NOTE | 2024-01-10 13:27 | PC.NURSE ---
1244- Ice applied behind right knee and on right shoulder
[2024-01-10] MEDS: ENOXAPARIN SODIUM 40 MG/0.4 ML SYRINGE SUBQ (16:44)
[2024-01-10] MEDS: OXYCODONE HCL 15 MG TABLET PO (16:52)
[2024-01-10] MEDS: ACETAMINOPHEN 500 MG TABLET 1000 MG PO ×2 (16:52→23:21)
[2024-01-10] MEDS: 0.9 % SODIUM CHLORIDE 250 ML 10 ML IV (16:53)
[2024-01-10] MEDS: PREGABALIN 75 MG CAPSULE PO (21:01)
[2024-01-10] MEDS: AMITRIPTYLINE HCL 50 MG TABLET 100 MG PO (23:19)
[2024-01-10] MEDS: OXYCODONE HCL 5 MG TABLET 10 MG PO (23:22)
[2024-01-10] MEDS: KETOROLAC TROMETHAMINE 30 MG/ML VIAL 15 MG IVP (23:23)
[2024-01-11] MEDS: ACETAMINOPHEN 500 MG TABLET 1000 MG PO ×2 (05:15→12:22)
[2024-01-11 05:22] VITALS: BP 101/63; PULSE 76; TEMP 36.8; O2SAT 94
--- NOTE | 2024-01-11 06:55 | P.PN_ITS ---
Progress Note: Subjective Subjective Interval history: Can move toes this morning. Pain well-controlled with oral medications currently. Exam Constitutional Vital Signs, click to edit/add: Last Vital Signs Temp 98.2 F 01/11/24 05:22 Pulse 76 01/11/24 05:22 Resp 16 01/11/24 05:22 BP 101/63 01/11/24 05:22 Pulse Ox 94 L 01/11/24 05:22 O2 Del Method Room Air 01/11/24 05:22 O2 Flow Rate 3 01/10/24 14:08 Documenting provider has reviewed patient's vital signs: yes Common normals: no apparent distress Chest Common normals: inspection of chest normal Respiratory Common normals: normal respiratory effort, no retractions and clear to auscultation bilaterally Cardio Common normals: regular rate, regular rhythm and no murmurs GI Common normals: Normal to inspection, nondistended, normoactive bowel sounds present and soft to palpation Extremity Common normals: abnormal to inspection (Large dressing and cast over foot) Progress Note: A&P Assessment and Plan (1) Foot pain: (2) Primary osteoarthritis, right ankle and foot: Plan Hardware removal-plan per podiatry. Pain control per podiatry Hypertension-restart home medications Iron deficiency anemia-maintain oral supplementation Generalized anxiety disorder with depression-resume home medications Insomnia-resume home medications Hearing loss-hearing is functioning normally Admission status: Patient placed in observation bed for pain control. Will see how her day progresses. Possible discharge to home later today. Discharge disposition per podiatry
[2024-01-11] MEDS: CEFAZOLIN SODIUM/DEXTROSE,ISO 2 GM/50 ML PIGGYBACK IV (08:59)
[2024-01-11] MEDS: PREGABALIN 75 MG CAPSULE PO (09:00)
[2024-01-11] MEDS: ASCORBIC ACID 500 MG TABLET 1000 MG PO (09:00)
[2024-01-11] MEDS: ALPRAZOLAM 0.5 MG TABLET PO (09:00)
[2024-01-11] MEDS: CHOLECALCIFEROL (VITAMIN D3) 25 MCG/1,000 UNITS TABLET PO (09:00)
[2024-01-11] MEDS: FERROUS SULFATE 325 MG TABLET PO (09:01)
[2024-01-11] MEDS: LISINOPRIL 20 MG TABLET PO (09:01)
--- NOTE | 2024-01-11 09:10 | P.PN_ITS ---
Progress Note: Subjective Subjective Interval history: Patient seen resting comfortably at bedside chair this a.m., POD #1 s/p right arthroscopic ankle joint debridement, revision subtalar joint arthrodesis with hardware removal, stress exam under anesthesia and lateral ankle stabilization DOS 01/10/2024. She denies any acute events overnight. States she does feel a block is worn off is able to feel and move all of her toes, admits to moderate pain controlled with oral medications. Feels she is ready to go home. Denies any other acute lower extremity complaints. Denies any constitutional symptoms at time of visit.. Exam Narrative Exam Narrative: RLE dressing left CDI. CFT intact to digits. Skin temperature warm to warm proximal to distal without focal increase. Light touch sensation intact to di gits with active range of motion present. Compartment soft compressible, no pain with calf or thigh compression. Constitutional Vital Signs, click to edit/add: Last Vital Signs Temp 98.2 F 01/11/24 05:22 Pulse 76 01/11/24 05:22 Resp 16 01/11/24 05:22 BP 101/63 01/11/24 05:22 Pulse Ox 94 L 01/11/24 05:22 O2 Del Method Room Air 01/11/24 05:22 O2 Flow Rate 3 01/10/24 14:08 Progress Note: A&P Assessment and Plan (1) Foot pain: (2) Primary osteoarthritis, right ankle and foot: Plan Patient examined evaluated. All findings discussed with patient all questions answered to patient's satisfaction. Pertinent labs and imaging reviewed. RLE dressing left CDI until follow-up. Nonweightbearing to right lower extremity with use of crutches walker or knee scooter. PT on board. Patient states her pain is currently controlled with oral medications, block appears to have worn off, she like to stay through lunchtime to make sure pain is under control, Anticipate DC home later today.. Stable to DC from surgery standpoint Follow-up with Dr. Salmeron in 1 week for dressing change. Postop prescriptions sent to patient's pharmacy on file. Patient agreed with above plan, please call with any questions or concerns.
[2024-01-11 09:13] VITALS: BP 102/68; PULSE 75; TEMP 36.7; O2SAT 92
--- NOTE | 2024-01-11 09:47 | SWNOTE1 ---
SW met with pt to discuss dc needs. Pt lives at home with family. This is pt's second surgery. She has been [facility] in past. She has a walker, cane, quad cane, and rented a knee scooter. Pt voiced no discharge needs at this time. SW to follow as needed. SW checked therapy notes and HH or SNF was not recommended.
[2024-01-11] MEDS: VENLAFAXINE HCL ER 75 MG CAPSULE 225 MG PO (09:53)
== END 2024-01-11 14:33 | disposition home or self-care (01) ==
LOC: SURGOUT 12:23 → MS 13:57
PROVIDERS: Anesthesiology; Admitting Provider Family Medicine; PCP Nurse Practitioner Family; Visit Provider Podiatrist Foot & Ankle Surgery
PROC: (CPT 1170; principal; 2024-01-10 07:30)
DX: M76.821 Posterior tibial tendinitis, right leg (principal); M96.0 Pseudarthrosis after fusion or arthrodesis; T84.84XA Pain due to internal orthopedic prosthetic devices, implants and grafts, initial encounter; M25.871 Other specified joint disorders, right ankle and foot; M25.371 Other instability, right ankle; I10 Essential (primary) hypertension; D50.9 Iron deficiency anemia, unspecified; F41.1 Generalized anxiety disorder; G47.00 Insomnia, unspecified; H91.90 Unspecified hearing loss, unspecified ear; Z87.891 Personal history of nicotine dependence; K21.9 Gastro-esophageal reflux disease without esophagitis; M19.071 Primary osteoarthritis, right ankle and foot; M20.10 Hallux valgus (acquired), unspecified foot; M24.571 Contracture, right ankle
CPT/HCPCS: 20680; 27698; 28725; 29897; 36415; 64445; 64447; 73610; 73630; 76000; 82948; 85025; 97116; 97161; C1713; J0131; J0690; J1110; J1170; J1290; J1650; J1885; J2250; J2405; J2704; J2795; J3010

== ENCOUNTER 2024-01-30 15:18 | Outpatient (OUT) | payer OTHER, SELFPAY ==
--- NOTE | 2024-01-30 | XR_ITS ---
The [address] [address] Patient Name: LAWRENCE LIZAMA MRN: [id number] date: 1970 Sex: F Assigned Patient Location: Current Patient Location: Accession/Order Number: [id number] Exam Date: 01/30/2024 15:35 Report Date: 02/02/2024 05:32 At the request of: LOS VENTURA Procedure: XR foot RT min 3V PROCEDURE: XR foot RT min 3V HISTORY: RIGHT FOOT PAIN COMPARISON: XR foot right 01/10/2024, 10/24/2023 FINDINGS: BONES:Posterior talocalcaneal fusion via 2 screws with lucency surrounding the posterior aspect of the calcaneus screws suggesting loosening/movement. Mechanical fusion of the navicular-middle cuneiform via dorsal bone staple. Stable midfoot degenerative changes. Stable cortical irregularity along the anterior margin of distal tibia likely representing prior bone harvesting. SOFT TISSUES:Mild anterior soft tissue swelling. EFFUSION:None visible. OTHER: Negative. XR/XR foot RT min 3V IMPRESSION: 1. Interval removal of cast material. 2. Suspect loosening/movement resulted in lucency of bone surrounding posterior aspect of calcaneal screws. Electronically authenticated by: TERI KAY Date: 02/02/2024 05:32
--- OUTSIDE RECORDS SUMMARY | 2024-01-30 15:39 | XMS_ITS | CCD ---
Author Organization [facility] CliniSynm Care Team Providers Care Hybrid Technologist Name Role Phone Rai Alvarenga Unavailable KEL MONTGOMERY Primary Care Unavailable LOS VENTURA Attending Unavailable LOS VENTURA Consulting Unavailable LOS VENTURA Admitting Unavailable DALTON ALVARENGA Consulting Unavailable KEL MONTGOMERY Primary Care Unavailable LOS VENTURA Admitting Unavailable LOS VENTURA Attending Unavailable MELISSA, NONE LISTED Primary Care Unavaila laura HERNANDEZ, DR BARBARA Greer Consulting Unavailable NADERERandy, DR DANA Martinez Admitting Unavailable NADERERandy, DR DANA Martinez Attending Unavailable SAMIERERandy, DR DANA Martinez Consulting Unavailable LOS VENTURA Consulting Unavailable EZIO ., MARY MIKE Consulting Unavailable ZAC II, JODI Consulting Unavailable BORIS PITTMAN Consulting Unavailable KEL MONTGOMERY Primary Care Unavailable ALEXANDER ., DR JASIEL Hutchinson Admitting Unavaila ble ALEXANDER ., DR JASIEL Hutchinson Attending Unavaila ble ALEXANDER ., DR JASIEL Hutchinson Consulting Unavaila KEL Ladd Primary Care Unavailable KEL MONTGOMERY Admitting Unavailable [...] LISTED Primary Care Unavaila ble HIGHLANDER, LOS D Admitting Unavailable HIGHLANDER, LOS D Attending Unavailable ZIEBHARI, DR TERI Padilla Consulting Unavailable HIGHLANDER, LOS Mtz Consulting Unavailable REQUEST, NONE LISTED Primary Care Unavaila ble HOY ., DR BUTLER Consulting Unavailable HOY ., DR BUTLER Admitting Unavailable HOY ., DR BUTLER Attending Unavailable NEEL WEBBER Consulting Unavailable VALENTINA, [facility] Primary Care Unavailable VALENTINA, KEL Admitting Unavailable VALENTINA, KEL Attending Unavailable VALENTINA, [facility] Primary Care Unavailable VALENTINA, KEL Admitting Unavailable VALENTINA, KEL Attending Unavailable VALENTINA, KEL Consulting Unavailable RAI ALVARENGA Admitting Unavailable COLETTE, RAI Attending Unavailable VALENTINA, [facility] Primary Care Unavailable COLETTE, RAI Consulting Unavailable VALENTINA, KEL Primary Care Unavailable HIGHLANDER, LOS D Attending Unavailable HIGHLANDER, LOS D Consulting Unavailable HIGHLANDER, PETER D Admitting Unavailable VALENTINA, KEL Primary Care Unavailable HIGHLANDER, LOS D Attending Unavailable HIGHLANDER, PETER D Admitting Unavailable WEST, DR BARBARA Greer Consulting Unavailable HIGHLANDER, LOS Mtz Consulting Unavailable VALENTINA, [facility] Primary Care Unavailable GRILLIS ., DR JASIEL Hutchinson Consulting Unavaila ble GRILLIS ., DR JASIEL Hutchinson Admitting Unavaila ble GRILLIS ., DR JASIEL Hutchinson Attending Unavaila ble VALENTINA, [facility] Primary Care Unavailable GRILLIS ., DR JASIEL Hutchinson Admitting Unavaila ble GRILLIS ., DR JASIEL Hutchinson Attending Unavaila ble GRILLIS ., DR JASIEL Hutchinson Consulting Unavaila ble GIOVANNA, OLLIE JYO Consulting Unava ilESPERANZA Moody Consulting Unavailable VALENTINA, KEL Primary Care Unavailable HIGHLANDER, PETER D Attending Unavailable HIGHLANDER, LOS Mtz Consulting Unavailable HIGHLANDER, PETER D Admitting Unavailable VALENTINA, KEL Primary Care Unavailable HIGHLANDER, PETER D Admitting Unavailable HIGHLANDER, PETER D Attending Unavailable VALENTINA, KEL Primary Care Unavailable HOY ., DR BUTLER Admitting Unavailable HOY ., DR BUTLER Attending Unavailable ADRIANA KIM Admitting Unavailable RAHUL, DR TERI Padilla Consulting Unavailable REQUEST, NONE LISTED Primary Care Unavaila ble ADRIANA KIM Attending Unavailable ADRIANA KIM Consulting Unavailable Allergies Allergy Classification Reported Allergen(s) Allergy Type Date of Onset Reaction(s) Facility (3 sources) Aspirin Drug Allergy Unknown [facility] Other (3 sources) Latex Propensity to adverse reactions Unknown [facility] Other (2 sources) Aspirin Drug Allergy [facility] Repository (2 sources) Latex Drug allergy (disorder) [facility] Rep[facility] Medications Current Medications Medication Drug Class(es) Dates Sig (Normalized) Sig (Original) amitriptyline hydrochloride 50 mg oral tablet (3 sources) Tricyclic Antidepressant take 1 tablet by mouth every twenty-four hours Amitriptyline HCl 50 MG 1 tablet at bedtime Orally Once a day Active cholecalciferol 1.25 mg oral capsule (2 sources) Vitamin D take 1 capsule by mouth every week Vitamin D3 1.25 MG (23509 UT) 1 capsule Orally once per week [...] by: Elizabeth INFANTE Date: 2022-11-10 23:57 Normal [facility] US KIDNEYS BLADDERon 023 US KIDNEYS BLADDER US KIDNEYS BLADDER EXAM DATE: 09/23/2022 6:34 AM [facility] COMPARISON: None available. INDICATION: Recurrent UTI. TECHNIQUE: Real-time ultrasound scanning of the kidneys and bladder was performed by the tea leaf reader. Drum Sprayer static images are submitted for review. FINDINGS: [...] NEEL WEBBER Date: 2022-09-23 14:49 Normal [facility] CBC AUTO DIFFon 08-15-2022 BASO # 0.0 103/ul Normal 0.0-0.[address] [facility] Comment on above: Performed By: #### C BC #### [facility] [address] [place] [address] Dr. Arianna Hamlin Basophils/100 WBC (Bld) 0.3 % Normal 0.2-2.0 [facility] Comment on above: Performed By: #### C BC #### [facility] [address] [place] [address] Dr. Arianna Hamlin EO # 0.0 103/ul Normal 0.0-0.[address] [facility] Comment on above: Performed By: #### C BC #### [facility] [address] [place] [address] Dr. Arianna Hamlin Eosinophils/100 WBC (Bld) 0.1 % Critically low 0.9-7.[address] [facility] Comment on above: Performed By: #### C BC #### [facility] [address] [place] [address] Dr. Arianna Hamlin Erythrocyte distribution width (RBC) [Ratio] 12.2 % Normal 11.0-15.[address] [facility] Comment on above: Performed By: #### C BC #### [facility] [address] [place] [address] Dr. Arianna Hamlin Hematocrit (Bld) [Volume fraction] 35.9 % Critically low 36.0-48.0 [facility] Comment on above: Performed By: #### C BC #### [facility] [address] [place] [address] Dr. Arianna Hamlin Hemoglobin (Bld) [Mass/Vol] 12.0 g/dL Normal 12.0-16.0 [facility] Comment on above: Performed By: #### C BC #### [facility] [address] [place] [address] Dr. Arianna Hamlin IG # 0.02 10e3/ul Normal 0.00-0.03 [facility] Comment on above: Performed By: #### C BC #### [facility] [address] [place] [address] Dr. Arianna Hamlin IG % 0.3 % Normal 0.0-0.5 [facility] Comment on above: Performed By: #### C BC #### [facility] [address] [place] [address] Dr. Arianna Hamlin LYMPH # 1.8 103/ul Normal 1.2-3.[address] [facility] Comment on above: Performed By: #### C BC #### [facility] [address] [place] [address] Dr. Arianna Hamlin Lymphocytes/100 WBC (Bld) 22.8 % Normal 20.5-60.0 [facility] Comment on above: Performed By: #### C BC #### [facility] [address] [place] [address] Dr. Arianna Hamlin MANUAL DIFF REQ NO Normal [facility] Comment on above: Performed By: #### C BC #### [facility] [address] [place] [address] Dr. Arianna Hamlin MCH (RBC) [Entitic mass] 27.8 pg Normal 26.7-34.0 [facility] Comment on above: Performed By: #### C BC #### [facility] [address] [place] [address] Dr. Arianna Hamlin MCHC (RBC) [Mass/Vol] 33.4 g/dL Normal 29.9-35.2 [facility] Comment on above: Performed By: #### C BC #### [facility] [address] [place], [place] [id number] Dr. Arianna Hamlin MCV (RBC) [Entitic vol] 83.1 fL Normal 81.0-99.[address] [facility] Comment on above: Performed By: #### C BC #### [facility] [address] [place] [address] Dr. Arianna Hamlin MONO # 0.9 103/ul Critically high 0.3-0.8 [facility] Comment on above: Performed By: #### C BC #### [facility] [address] [place] [address] Dr. Arianna Hamlin Monocytes/100 WBC (Bld) 10.8 % Normal 1.7-12.[address] [facility] Comment on above: Performed By: #### C BC #### [facility] [address] [place] [address] Dr. Arianna Hamlin NEUT # 5.2 103/ul Normal 1.4-6.5 [facility] Comment on above: Performed By: #### C BC #### [facility] [address] [place] [address] Dr. Arianna Hamlin Neutrophils/100 WBC (Bld) 65.7 % Normal 43.0-75.[address] [facility] Comment on above: Performed By: #### C BC #### [facility] [address] [place] [address] Dr. Arianna Hamlin Platelet mean volume (Bld) [Entitic vol] 10.2 fL Normal 9.5-13.[address] [facility] Comment on above: Performed By: #### C BC #### [facility] [address] [place] [address] Dr. Arianna Hamlin PLT 243 103/ul Normal 150-[address] [facility] Comment on above: Performed By: #### C BC #### [facility] [address] [place] [address] Dr. Arianna Hamlin RBC 4.32 106/ul Normal 4.20-5.[address] [facility] Comment on above: Performed By: #### C BC #### [facility] [address] [place] [address] Dr. Arianna Hamlin WBC 7.9 103/ul Normal 4.0-11.0 [facility] Comment on above: Performed By: #### C BC #### [facility] [address] [place] [address] Dr. Arianna Hamlin PROF CHEM 8 (BAS METB)on Anion gap [Moles/Vol] 10.8 mmol/L Normal [facility] Comment on above: Performed By: #### B MP #### [facility] [address] [address] [address] Arianna Hamlin Calcium [Mass/Vol] 9.0 mg/dL Normal 8.5-10.1 [facility] Comment on above: Performed By: #### B MP #### [facility] [address] [place] [address] Dr. Arianna Hamlin Chloride [Moles/Vol] 101 mmol/L Normal 98-107 [facility] Comment on above: Performed By: #### B MP #### [facility] [address] [place] [address] Dr. Arianna Hamlin CO2 [Moles/Vol] 30.8 mmol/L Normal 21.0-32.0 [facility] Comment on above: Performed By: #### B MP #### [facility] [address] [place] [address] Dr. Arianna Hamlin Creatinine [Mass/Vol] 0.79 mg/dL Normal 0.55-1.02 [facility] Comment on above: Performed By: #### B MP #### [facility] [address] [place] [address] Dr. Arianna Hamlin EGFR-AF MONTENEGRIN >60 Normal >=60 [facility] Comment on above: Performed By: #### B MP #### [facility] [address] [place] [address] Dr. Arianna Hamlin EGFR-NON AF MONTENEGRIN >60 Normal >=60 [facility] Comment on above: Performed By: #### B MP #### [facility] [address] [place] [address] Dr. Arianna Hamlin Glucose [Mass/Vol] 110 mg/dL Critically high 74-106 T [facility] Comment on above: Performed By: #### B MP #### [facility] [address] [address] [address] Arianna Hamlin Potassium [Moles/Vol] 3.6 mmol/L Normal 3.5-5.1 [facility] Comment on above: Performed By: #### B MP #### [facility] [address] [address] [address] Arianna Hamlin Sodium [Moles/Vol] 139 mmol/L Normal 136-145 [facility] Comment on above: Performed By: #### B MP #### [facility] [address] [address] [address] Arianna Hamlin Urea nitrogen [Mass/Vol] 8.0 mg/dL Normal 7.0-18.0 [facility] Comment on above: Performed By: #### B MP #### [facility] [address] [place] [address] Dr. Arianna Hamlin Urea nitrogen/Creatinine [Mass ratio] 10.1 mg/mg Normal [facility] Comment on above: Performed By: #### B MP #### [facility] [address] [address] [address] Arianna Hamlin UA RANDOMon 08-15-2022 Bilirubin Ql (U) Negative Normal NEGATIVE [facility] Comment on above: Performed By: #### C BC #### [facility] [address] [place] [address] Dr. Arianna Hamlin Clarity (U) CLEAR Normal CLEAR [facility] Comment on above: Performed By: #### C BC #### [facility] [address] [place] [address] Dr. Arianna Hamlin Glucose Ql (U) Negative Normal NEGATIVE [facility] Comment on above: Performed By: #### C BC #### [facility] [address] [place] [address] Dr. Arianna Hamlin Hemoglobin Ql (U) Negative Normal NEGATIVE [facility] Comment on above: Performed By: #### C BC #### [facility] [address] [address] [address] Arianna Hamlin Ketones Ql (U) Negative Normal NEGATIVE [facility] Comment on above: Performed By: #### C BC #### [facility] [address] [place] [address] Dr. Arianna Hamlin LEUKOCYTES MODERATE Abnormal NEGATIVE [facility] Comment on above: Performed By: #### C BC #### [facility] [address] [place] [address] Dr. Arianna Hamlin Nitrite Ql (U) Negative Normal NEGATIVE [facility] Comment on above: Performed By: #### C BC #### [facility] [address] [place] [address] Dr. Arianna Hamlin pH (U) 7.0 [pH] Normal 5-9 [facility] Comment on above: Performed By: #### C BC #### [facility] [address] [place] [address] Dr. Arianna Hamlin SPEC GRAVITY 1.010 Normal 1.005-<=1.025 [facility] Comment on above: Performed By: #### C BC #### [facility] [address] [place] [address] Dr. Arianna Hamlin UA PROTEIN Negative Normal NEGATIVE/ TRACE [facility] Comment on above: Performed By: #### C BC #### [facility] [address] [place] [address] Dr. Arianna Hamlin Urobilinogen Qn (U) 0.2 {Ayden'U}/dL Normal 0.2 - 1. 0 [facility] Comment on above: Performed By: #### C BC #### [facility] [address] [place] [address] Dr. Arianna Hamlin XR FOOT RT 2Von [...] BARBARA HERNANDEZ Date: 2022-08-15 08:59 Normal [facility] POINT OF CARE GLUCOSEon - Glucose [Mass/Vol] 138 mg/dL Critically high 74-106 T [facility] Comment on above: Performed By: #### P OCGLUC #### [facility] [address] [place] [address] Dr. Arianna Hamlin Glucose [Mass/Vol] 94 mg/dL Normal 74-106 [facility] Comment on above: Performed By: #### P OCGLUC #### [facility] [address] [place] [address] Dr. Arianna Hamlin CBC AUTO DIFFon 08-08-2022 BASO # 0.0 103/ul Normal 0.0-0.1 [facility] Comment on above: Performed By: #### C BC #### [facility] [address] [place] [address] Dr. Arianna Hamlin Basophils/100 WBC (Bld) 0.7 % Normal 0.2-2.0 [facility] Comment on above: Performed By: #### C BC #### [facility] [address] [place] [address] Dr. Arianna Hamlin EO # 0.1 103/ul Normal 0.0-0.7 [facility] Comment on above: Performed By: #### C BC #### [facility] [address] [place] [address] Dr. Arianna Hamlin Eosinophils/100 WBC (Bld) 1.3 % Normal 0.9-7.0 [facility] Comment on above: Performed By: #### C BC #### [facility] [address] [place] [address] Dr. Arianna Hamlin Erythrocyte distribution width (RBC) [Ratio] 12.3 % Normal 11.0-15.0 [facility] Comment on above: Performed By: #### C BC #### [facility] [address] [place] [address] Dr. Arianna Hamlin Hematocrit (Bld) [Volume fraction] 38.4 % Normal 36.0-48.0 [facility] Comment on above: Performed By: #### C BC #### [facility] [address] [place] [address] Dr. Arianna Hamlin Hemoglobin (Bld) [Mass/Vol] 13.2 g/dL Normal 12.0-16.0 [facility] Comment on above: Performed By: #### C BC #### [facility] [address] [place] [address] Dr. Arianna Hamlin IG # 0.01 10e3/ul Normal 0.00-0.[address] [facility] Comment on above: Performed By: #### C BC #### [facility] [address] [place] [address] Dr. Arianna Hamlin IG % 0.2 % Normal 0.0-0.[address] [facility] Comment on above: Performed By: #### C BC #### [facility] [address] [place] [address] Dr. Arianna Hamlin LYMPH # 1.8 103/ul Normal 1.2-3.[address] [facility] Comment on above: Performed By: #### C BC #### [facility] [address] [place] [address] Dr. Arianna Hamlin Lymphocytes/100 WBC (Bld) 30.8 % Normal 20.5-60.0 [facility] Comment on above: Performed By: #### C BC #### [facility] [address] [place] [address] Dr. Arianna Hamlin MANUAL DIFF REQ NO Normal [facility] Comment on above: Performed By: #### C BC #### [facility] [address] [place] [address] Dr. Arianna Hamlin MCH (RBC) [Entitic mass] 27.7 pg Normal 26.7-34.[address] [facility] Comment on above: Performed By: #### C BC #### [facility] [address] [place] [address] Dr. Arianna Hamlin MCHC (RBC) [Mass/Vol] 34.4 g/dL Normal 29.9-35.[address] [facility] Comment on above: Performed By: #### C BC #### [facility] [address] [place] [address] Dr. Arianna Hamlin MCV (RBC) [Entitic vol] 80.7 fL Critically low 81.0-99.0 [facility] Comment on above: Performed By: #### C BC #### [facility] [address] [place] [address] Dr. Arianna Hamlin MONO # 0.4 103/ul Normal 0.3-0.[address] [facility] Comment on above: Performed By: #### C BC #### [facility] [address] [place] [address] Dr. Arianna Hamlin Monocytes/100 WBC (Bld) 7.1 % Normal 1.7-12.[address] [facility] Comment on above: Performed By: #### C BC #### [facility] [address] [place] [address] Dr. Arianna Hamlin NEUT # 3.6 103/ul Normal 1.4-6.5 [facility] Comment on above: Performed By: #### C BC #### [facility] [address] [place] [address] Dr. Arianna Hamlin Neutrophils/100 WBC (Bld) 59.9 % Normal 43.0-75.[address] [facility] Comment on above: Performed By: #### C BC #### [facility] [address] [place] [address] Dr. Arianna Hamlin Platelet mean volume (Bld) [Entitic vol] 9.5 fL Normal 9.5-13.[address] [facility] Comment on above: Performed By: #### C BC #### [facility] [address] [place] [address] Dr. Arianna Hamlin PLT 248 103/ul Normal 150-[address] [facility] Comment on above: Performed By: #### C BC #### [facility] [address] [place] [address] Dr. Arianna Hamlin RBC 4.76 106/ul Normal 4.20-5.[address] [facility] Comment on above: Performed By: #### C BC #### [facility] [address] [place] [address] Dr. Arianna Hamlin WBC 5.9 103/ul Normal 4.0-11.0 [facility] Comment on above: Performed By: #### C BC #### [facility] [address] [place] [address] Dr. Arianna Hamlin Covid-19 PCR ([facility])on 07-30 SARS-CoV-2 (COVID-19) RNA RICHARD+probe Ql (Unsp spec) Not detected Normal NOT DETECTED [facility] Comment on above: Result Comment: This test is not yet approved or cleared by the [place] FDA. When there are no FDA-approved or cleared tests available, and other criteria are met, FDA can make tests available under an emergency access mechanism called an Emergency Use Authorization (EUA). The EUA for this test is supported by the [place] of Health and Human Service's (HHS's) declaration [...] SARS-CoV-2. Performed By: #### C VDTB #### [facility] [address] [place] [address] [address] Arianna Hamlin PROF CHEM 8 (BAS METB)on Anion gap [Moles/Vol] 10.1 mmol/L Normal [facility] Comment on above: Performed By: #### B MP #### [facility] [address] [place] [address] [address] [address] Arianna Hamlin Calcium [Mass/Vol] 9.2 mg/dL Normal 8.5-10.1 [facility] Comment on above: Performed By: #### B MP #### [facility] [address] [place] [address] [address] [address] Arianna Hamlin Chloride [Moles/Vol] 103 mmol/L Normal 98-107 [facility] Comment on above: Performed By: #### B MP #### [facility] [address] [address] [address] Arianna Hamlni CO2 [Moles/Vol] 30.7 mmol/L Normal 21.0-32.0 [facility] Comment on above: Performed By: #### B MP #### [facility] [address] [address] [address] Arianna Hamlin Creatinine [Mass/Vol] 0.86 mg/dL Normal 0.55-1.02 [facility] Comment on above: Performed By: #### B MP #### [facility] [address] [address] [address] Arianna Hamlin EGFR-AF MONTENEGRIN >60 Normal >=60 [facility] Comment on above: Performed By: #### B MP #### [facility] [address] [address] [address] Arianna Hamlin EGFR-NON AF MONTENEGRIN >60 Normal >=60 [facility] Comment on above: Performed By: #### B MP #### [facility] [address] [address] [address] Arianna Hamlin Glucose [Mass/Vol] 77 mg/dL Normal 74-106 [facility] [place] Comment on above: Performed By: #### B MP #### [facility] [address] [address] [address] Arianna Hamlin Potassium [Moles/Vol] 3.8 mmol/L Normal 3.5-5.[address] [facility] Comment on above: Performed By: #### B MP #### [facility] [address] [address] [address] Arianna Hamlin Sodium [Moles/Vol] 140 mmol/L Normal 136-145 [facility] Comment on above: Performed By: #### B MP #### [facility] [address] [address] [address] Arianna Hamlin Urea nitrogen [Mass/Vol] 8.0 mg/dL Normal 7.0-18.[address] [facility] Comment on above: Performed By: #### B MP #### [facility] [address], [place] [address] Dr. Arianna Hamlin Urea nitrogen/Creatinine [Mass ratio] 9.3 mg/mg Normal [facility] Comment on above: Performed By: #### B MP #### [facility] [address], [place] [address] Dr. Arianna Hamlin Covid-19 PCR ([facility])on SARS-CoV-2 (COVID-19) RNA RICHARD+probe Ql (Unsp spec) Not detected Normal NOT DETECTED The [facility] Comment on above: Result Comment: This test is not yet approved or cleared by the [place] FDA. When there are no FDA-approved or cleared tests available, and other criteria are met, FDA can make tests available under an emergency access mechanism called an Emergency Use Authorization (EUA). The EUA for this test is supported by the [place] of Health and Human Service's (HHS's) declaration [...] SARS-CoV-2. Performed By: #### B MP #### [facility] [address] [place] [id number] [address] Arianna Hamlin MRI ANKLE RT WO [...] DALTON ALVARENGA Date: 2022-06-24 12:09 Normal [facility] H PYLORI TISSUEon 05-17-2022 H PYL TISSUE, UREASE Negative Normal NEGATIVE The [facility] Comment on above: Performed By: #### B MP #### [facility] [address] [place] [address] [address] Arianna Hamlin Covid-19 PCR ([facility])on 04-29 SARS-CoV-2 (COVID-19) RNA RICHARD+probe Ql (Unsp spec) Not detected Normal NOT DETECTED The [facility] Comment on above: Result Comment: This test is not yet approved or cleared by the [place] FDA. When there are no FDA-approved or cleared tests available, and other criteria are met, FDA can make tests available under an emergency access mechanism called an Emergency Use Authorization (EUA). The EUA for this test is supported by the [employer] of Health and Human Service's (HHS's) declaration [...] SARS-CoV-2. Performed By: #### C VDTBH #### [facility] [address] [place] [address] Dr. Arianna Hamlin FLORINA by IFAon 05-11-2022 Antinuclear Antibodies, IFA Negative Normal The [facility] Comment on above: Result Comment: Nega tive <1:80 Borderline 1:80 Positive >1:80 ICAP nomenclature: AC-0 For more information about Hep-2 cell patterns use ANApatterns.org, the official website for the International Consensus on Antinuclear Antibody (FLORINA) Patterns (ICAP). Performed By: #### B MP #### [facility] [address], [place] [address] Dr. Arianna Hamlin CULTURE URINEon 05-11-2022 CULTURE [...] Trimethoprim/Sulfameth oxazole <=20 S C Normal [facility] Comment on above: Performed By: #### C BC #### [facility] [address] [place] [address] Dr. Arianna Hamlin ANTISTREPTOLYSIN O AB (ASO)o n 05-10-2022 Antistreptolysin O Ab 45.8 IU/mL Normal 0.0-200.[address] [facility] Comment on above: Performed By: #### C BC #### [facility] [address] [place] [address] Dr. Arianna Hamlin RHEUMATOID FACTORon 05-10-20 22 RA Latex Turbid. <10.0 Normal <14.0 [facility] [place] [facility] Comment on above: Performed By: #### B MP #### [facility] [address] [place] [address] Dr. Arianan Hamlin CRPon 05-08-2022 CRP [Mass/Vol] mg/L Normal <=1.0 The [facility] Comment on above: Performed By: #### C BC #### [facility] [address] [place] [address] Dr. Arianna Hamlin UA RANDOM W/MICROSCOPICon BACTERIA LARGE Abnormal NONE SEEN The [facility] Comment on above: Performed By: #### U AMIC #### [facility] [address] [place] [address] Dr. Arianna Hamlin Bilirubin Ql (U) Negative Normal NEGATIVE [facility] [place] [facility] Comment on above: Performed By: #### U AMIC #### [facility] [address] [address] [address] Arianna Hamlin CAST NONE SEEN Normal NONE SEEN [facility] Comment on above: Performed By: #### U AMIC #### [facility] [address] [address] [address] Arianna Hamlin Clarity (U) CLEAR Normal CLEAR [facility] Comment on above: Performed By: #### U AMIC #### [facility] [address] [address] [address] Arianna Hamlin Color (U) LT. YELLOW Normal YELLOW [facility] Comment on above: Performed By: #### U AMIC #### [facility] [address] [address] [address] Arianna Hamlin Crystals LM Nom (Urine sed) NONE SEEN Normal NONE SEEN [facility] Comment on above: Performed By: #### U AMIC #### [facility] [address] [place] [address] Dr. Arianna Hamlin Epithelial cells LM Ql (Urine sed) FEW Abnormal NONE SEEN /RARE [facility] Comment on above: Performed By: #### U AMIC #### [facility] [address] [address] [address] Arianna Hamlin Glucose Ql (U) Negative Normal NEGATIVE The [facility] Comment on above: Performed By: #### U AMIC #### [facility] [address] [place] [address] Dr. Arianna Hamlin Hemoglobin Ql (U) SMALL Abnormal NEGATIVE The [facility] Comment on above: Performed By: #### U AMIC #### [facility] [address] [address] [address] Arianna Hamlin Ketones Ql (U) TRACE Abnormal NEGATIVE The [facility] Comment on above: Performed By: #### U AMIC #### [facility] [address] [address] [address] Arianna Hamlin LEUKOCYTES MODERATE Abnormal NEGATIVE [facility] Comment on above: Performed By: #### U AMIC #### [facility] [address] [address] [address] Arianna Hamlin MUCOUS NONE SEEN Normal NONE SEEN [facility] Comment on above: Performed By: #### U AMIC #### [facility] [address] [address] [address] Arianna Hamlin Nitrite Ql (U) Positive Abnormal NEGATIVE The [facility] Comment on above: Performed By: #### U AMIC #### [facility] [address] [place] [address] Dr. Arianna Hamlin pH (U) 6.0 [pH] Normal 5-[address] [facility] Comment on above: Performed By: #### U AMIC #### [facility] [address] [place] [address] Dr. Arianna Hamlin RBC 2-5 Abnormal 0-2 [facility] Comment on above: Performed By: #### U AMIC #### [facility] [address] [place] [address] Dr. Arianna Hamlin SPEC GRAVITY >=1.030 Abnormal 1.005-<=1.025 The [facility] Comment on above: Performed By: #### U AMIC #### [facility] [address] [place] [address] Dr. Arianna Hamlin UA PROTEIN Negative Normal NEGATIVE/ TRACE The [facility] Comment on above: Performed By: #### U AMIC #### [facility] [address] [place] [address] Dr. Arianna Hamlin Urobilinogen Qn (U) 0.2 {Ayden'U}/dL Normal 0.2 - 1. [address] [facility] Comment on above: Performed By: #### U AMIC #### [facility] [address] [place] [address] Dr. Arianna Hamlin WBC 20-50 Abnormal NONE SEEN The [facility] Comment on above: Performed By: #### U AMIC #### [facility] [address] [place] [address] Dr. Arianna Hamlin URIC ACID SERUMon 05-08-2022 Urate [Mass/Vol] 4.1 mg/dL Normal 2.6-6.0 [facility] Comment on above: Performed By: #### U BETY, CRP #### [facility] [address] [address] [address] Arianna Hamlin XR hip RT min 2V(w/wo pelvis )*on 01-27-2022 XR hip RT min 2V(w/wo pelvis)* [facility] [place] [address] [place] [address] XRay Report Signed Patient: Simin Caro MR#: [id number] : 1970 Acct:[id number] Age/Sex: 51 / F ADM Date: 01/27/22 Loc: [facility] Room: Type: [facility] CLI Attending Dr: Rai Alvarenga DO [...] PROCESS.. Impression dictated by: Fabio Oates Jr., DemetrisOHarris01/27/2022 9:14 AM Dictation Location: [place] [address] Transcribed By: [facility] 01/27/22913 Dictated By: Fabio Oates Jr, DO 01/27/22 0910 Signed By: 01/27/22 0914 Normal [facility] CBC AUTO DIFFon 01-24-2022 BASO # 0.1 103/ul Normal 0.0-0.1 [facility] Comment on above: Performed By: #### C BC #### [facility] [address] [address] [address] Arianna Hamlin Basophils/100 WBC (Bld) 0.9 % Normal 0.2-2.0 [facility] Comment on above: Performed By: #### C BC #### [facility] [address] [address] [address] Arianna Hamlin EO # 0.1 103/ul Normal 0.0-0.[address] [facility] Comment on above: Performed By: #### C BC #### [facility] [address] [place] [address] Dr. Arianna Hamlin Eosinophils/100 WBC (Bld) 2.2 % Normal 0.9-7.0 [facility] Comment on above: Performed By: #### C BC #### [facility] [address] [place] [address] Dr. Arianna Hamlin Erythrocyte distribution width (RBC) [Ratio] 12.7 % Normal 11.0-15.0 [facility] Comment on above: Performed By: #### C BC #### [facility] [address] [place] [address] Dr. Arianna Hamlin Hematocrit (Bld) [Volume fraction] 42.6 % Normal 36.0-48.0 [facility] Comment on above: Performed By: #### C BC #### [facility] [address] [place] [address] Dr. Arianna Hamlin Hemoglobin (Bld) [Mass/Vol] 14.2 g/dL Normal 12.0-16.0 [facility] Comment on above: Performed By: #### C BC #### [facility] [address] [place] [address] Dr. Arianna Hamlin IG # 0.02 10e3/ul Normal 0.00-0.03 [facility] Comment on above: Performed By: #### C BC #### [facility] [address] [place] [address] Dr. Arianna Hamlin IG % 0.4 % Normal 0.0-0.[address] [facility] Comment on above: Performed By: #### C BC #### [facility] [address] [place] [address] Dr. Arianna Hamlin LYMPH # 2.0 103/ul Normal 1.2-3.[address] [facility] Comment on above: Performed By: #### C BC #### [facility] [address] [place] [address] Dr. Arianna Hamlin Lymphocytes/100 WBC (Bld) 38.1 % Normal 20.5-60.0 [facility] Comment on above: Performed By: #### C BC #### [facility] [address] [place] [address] Dr. Arianna Hamlin MANUAL DIFF REQ NO Normal [facility] Comment on above: Performed By: #### C BC #### [facility] [address] [place] [address] Dr. Arianna Hamlin MCH (RBC) [Entitic mass] 28.1 pg Normal 26.7-34.0 [facility] Comment on above: Performed By: #### C BC #### [facility] [address] [place] [address] Dr. Arianna Hamlin MCHC (RBC) [Mass/Vol] 33.3 g/dL Normal 29.9-35.2 [facility] Comment on above: Performed By: #### C BC #### [facility] [address] [place] [address] Dr. Arianna Hamlin MCV (RBC) [Entitic vol] 84.4 fL Normal 81.0-99.0 [facility] Comment on above: Performed By: #### C BC #### [facility] [address] [place] [address] Dr. Arianna Hamlin MONO # 0.4 103/ul Normal 0.3-0.8 [facility] Comment on above: Performed By: #### C BC #### [facility] [address] [place] [address] Dr. Arianna Hamlin Monocytes/100 WBC (Bld) 7.3 % Normal 1.7-12.[address] [facility] Comment on above: Performed By: #### C BC #### [facility] [address] [place] [address] Dr. Arianna Hamlin NEUT # 2.7 103/ul Normal 1.4-6.[address] [facility] Comment on above: Performed By: #### C BC #### [facility] [address] [place] [address] Dr. Arianna Hamlin Neutrophils/100 WBC (Bld) 51.1 % Normal 43.0-75.0 [facility] Comment on above: Performed By: #### C BC #### [facility] [address] [place] [address] Dr. Arianna Hamlin Platelet mean volume (Bld) [Entitic vol] 9.8 fL Normal 9.5-13.5 [facility] Comment on above: Performed By: #### C BC #### [facility] [address] [place] [address] Dr. Arianna Hamlin PLT 276 103/ul Normal 150-450 [facility] Comment on above: Performed By: #### C BC #### [facility] [address] [place] [address] Dr. Arianna Hamlin RBC 5.05 106/ul Normal 4.20-5.40 [facility] Comment on above: Performed By: #### C BC #### [facility] [address] [place] [address] Dr. Arianna Hamlin WBC 5.4 103/ul Normal 4.0-11.0 [facility] Comment on above: Performed By: #### C BC #### [facility] [address] [place] [address] Dr. Arianna Hamlin PROF 14(COMP METB)on 022 Albumin [Mass/Vol] 4.2 g/dL Normal 3.4-5.0 [facility] Comment on above: Performed By: #### B MP #### [facility] [address] [place] [address] Dr. Arianna Hamlin Albumin/Globulin [Mass ratio] 1.3 {ratio} Normal [facility] Comment on above: Performed By: #### B MP #### [facility] [address] [place] [address] Dr. Arianna Hamlin ALP [Catalytic activity/Vol] 92 U/L Normal 46-116 [facility] Comment on above: Performed By: #### B MP #### [facility] [address] [place] [address] Dr. Arianna Hamlin ALT [Catalytic activity/Vol] 25 U/L Normal 14-59 [facility] Comment on above: Performed By: #### B MP #### [facility] [address] [address] [address] Arianna Hamlin Anion gap [Moles/Vol] 10.4 mmol/L Normal Th e [facility] Comment on above: Performed By: #### B MP #### [facility] [address] [address] [address] Arianna Hamlin AST [Catalytic activity/Vol] 20 U/L Normal 15-37 [facility] Comment on above: Performed By: #### B MP #### [facility] [address] [address] [address] Arianna Hamlin Bilirubin [Mass/Vol] 0.2 mg/dL Normal 0.2-1.0 [facility] Comment on above: Performed By: #### B MP #### [facility] [address] [address] [address] Arianna Hamlin Calcium [Mass/Vol] 9.0 mg/dL Normal 8.5-10.1 [facility] Comment on above: Performed By: #### B MP #### [facility] [address] [address] [address] Arianna Hamlin Chloride [Moles/Vol] 103 mmol/L Normal 98-107 [facility] Comment on above: Performed By: #### B MP #### [facility] [address] [address] [address] Arianna Hamlin CO2 [Moles/Vol] 29.7 mmol/L Normal 21.0-32.0 [facility] [place] [facility] Comment on above: Performed By: #### B MP #### [facility] [address] [address] [address] Arianna Hamlin Creatinine [Mass/Vol] 0.87 mg/dL Normal 0.55-1.02 [facility] Comment on above: Performed By: #### B MP #### [facility] [address] [address] [address] Arianna Hamlin EGFR-AF MONTENEGRIN >60 Normal >=60 [facility] Comment on above: Performed By: #### B MP #### [facility] [address] [address] [address] Arianna Hamlin EGFR-NON AF MONTENEGRIN >60 Normal >=[address] [facility] Comment on above: Performed By: #### B MP #### [facility] [address] [place] [address] Dr. Arianna Hamlin Globulin (S) [Mass/Vol] 3.3 g/dL Normal [facility] Comment on above: Performed By: #### B MP #### [facility] [address] [address] [address] Arianna Hamlin Glucose [Mass/Vol] 99 mg/dL Normal 74-106 [facility] Comment on above: Performed By: #### B MP #### [facility] [address] [place] [address] Dr. Arianna Hamlin Potassium [Moles/Vol] 4.1 mmol/L Normal 3.5-5.1 [facility] Comment on above: Performed By: #### B MP #### [facility] [address] [place] [address] Dr. Arianna Hamlin Protein [Mass/Vol] 7.5 g/dL Normal 6.4-8.2 [facility] Comment on above: Performed By: #### B MP #### [facility] [address] [place] [address] Dr. Arianna Hamlin Sodium [Moles/Vol] 139 mmol/L Normal 136-145 [facility] Comment on above: Performed By: #### B MP #### [facility] [address] [place] [address] Dr. Arianna Hamlin Urea nitrogen [Mass/Vol] 11.0 mg/dL Normal 7.0-18.0 [facility] Comment on above: Performed By: #### B MP #### [facility] [address] [place] [address] Dr. Arianna Hamlin Urea nitrogen/Creatinine [Mass ratio] 12.6 mg/mg Normal [facility] Comment on above: Performed By: #### B MP #### [facility] [address] [place] [address] Dr. Arianna Hamlin Provider Letteron 09-06-2021 Provider Letter September 06, 2021 SIMIN CARO [address] [place] [id number] SIMIN CARO 1970 Dear Simin_ , We have been trying to reach you with no success. It is important that you return our call regarding your referral from Melinda Rodriguez upon receiving this letter. Also, at the time of your call, please provide us with your correct phone number. . Thank you for your prompt attention to this matter. Sincerely, General Surgery [phone] [facility] Physician Referralon 022 Physician Referral [phone] [id number] [facility] Vital Signs Date Time Vital Sign Value Performing Clinician Faci lity 02-03-2022 12:15-0400 Body height 160.02 cm Rai Alvarenga Other [facility] Other 02-03-2022 12:15-0400 Body mass index (BMI) [Ratio] 36.13 kg/m2 Rai Alvarenga Other [facility] Other 02-03-2022 12:15-0400 Body weight 92.53 kg Rai Alvarenga Other [facility] Other 01-27-2022 09:00-0400 Body height 160.02 cm Rai Alvarenga Other [facility] Other 01-27-2022 09:00-0400 Body mass index (BMI) [Ratio] 36.13 kg/m2 Rai Alvarenga Other [facility] Other 01-27-2022 09:00-0400 Body weight 92.53 kg Rai Alvarenga Other [facility] Other 10-31-2021 16:30-0400 Body height 160.02 cm Rai Alvarenga Other [facility] Other 10-31-2021 16:30-0400 Body mass index (BMI) [Ratio] 37.02 kg/m2 Rai Alvarenga Other [facility] Other 10-31-2021 16:30-0400 Body weight 94.8 kg Rai Alvarenga Other [facility] Other Encounters Encounter Date Encounter Type Care [...] Encounter for preprocedural laboratory examination [facility] Start: 08-10-2022 ambulatory KEL VALENTINA Facility: [facility]1 Start: 08-08-2022 End: 08-09-2022 ambulatory KEL VALENTINA Facility:[facility] Start: 08-08-2022 End: 08-09-2022 Encounter for preprocedural laboratory examination KEL VALENTINA Facility:[facility] Start: 07-05-2022 End: 07-05-2022 ambulatory KEL VALENTINA Facility:[facility] Start: 07-01-2022 End: 07-02-2022 ambulatory KEL VALENTINA Facility:[facility]1 Start: 06-28-2022 End: 06-29-2022 ambulatory KEL VALENTINA Facility:[facility]1 Start: 06-20-2022 End: 06-21-2022 ambulatory KEL VAUGHANMER Facility:H1 Start: 06-14-2022 End: 06-15-2022 ambulatory KEL VALENTINA Facility:[facility]1 Start: 05-28-2022 ambulatory KEL VALENTINA Facility: [facility]1 Start: 05-17-2022 End: 05-17-2022 ambulatory KEL VALENTINA Facility:[facility]1 Start: 05-15-2022 End: 05-16-2022 ambulatory KEL VALENTINA Facility:[facility]1 Start: 05-08-2022 End: 05-09-2022 ambulatory KEL VALENTINA Facility:[facility]1 Start: 03-25-2022 ambulatory KEL VALENTINA Facility: [facility] Start: 02-27-2022 ambulatory KEL VAUGHANMER Facility: [facility] Start: 02-03-2022 End: 02-03-2022 ambulatory Rai Alvarenga Other [facility] Other Start: 02-03-2022 Postop follow up vis it related to original px Rai Alvarenga [facility] Start: 01-27-2022 End: 01-27-2022 ambulatory Rai Alvarenga Other [facility] Other Start: 01-27-2022 Office outpatient vi sit 15 minutes Rai Alvarenga [facility] Start: 01-24-2022 End: 01-25-2022 ambulatory RAI ALVARENGA Facility:[facility]1 Start: 10-31-2021 End: 10-31-2021 ambulatory Rai Alvarenga Other [facility] Other Start: 10-31-2021 Office outpatient ne w 45 minutes Rai Alvarenga [facility] Immunizations Immunization Date Immunization Notes Care Provider Leoncio ware 05-16-2021 influenza, injectabl e, quadrivalent, preservative free Rai Alvarenga Other [facility] Other 01-01-2021 COVID-19 Vaccine Yari - Documentation Purposes Only Rai Alvarenga Other [facility] Other Payers Date Payer Category Payer Unknown [id number] 2.16.84 [id number] 1970 Unknown [id number] 2.16.84 [id number] 1970 Unknown [id number] 2.16.84 [id number] 1970 Unknown [id number] 2.16.84 [id number] 1970 Unknown [id number] 2.16.84 [id number] 1970 Unknown [id number] 2.16.84 [id number] 1970 Unknown [id number] 2.16.84 [id number] 1970 Unknown [id number] 2.16.84 [id number] 1970 Unknown [id number] 2.16.84 [id number] 1970 Unknown [id number] 2.16.84 [id number] 1970 Unknown [id number] 2.16.84 [id number] 1970 Unknown [id number] 2.16.84 0.1.341515.3.579.2.593 1970 Unknown [id number] 2.16.84 [id number] 1970 Unknown [id number] 2.16.84 0.1.897415.3.579.2.593 1970 Unknown [id number] 2.16.84 0.1.974854.3.579.2.593 1970 Unknown [id number] 2.16.84 0.1.378728.3.579.2.593 1970 Unknown [id number] 2.16.84 0.1.499102.3.579.2.593 1970 Unknown [id number] 2.16.84 0.1.696970.3.579.2.593 1970 Unknown [id number] 2.16.84 0.1.733999.3.579.2.593 1970 Unknown [id number] 2.16.84 0.1.447707.3.579.2.593 1970 Unknown [id number] 2.16.84 0.1.848870.3.579.2.593 1970 Unknown [id number] 2.16.84 0.1.220514.3.579.2.593 1959 [facility] [id number] 1959 Self-pay Social History Date Type Detail Facility Sex Assigned At [facility] Clinical Notes 10-31-2021 to 12-19-2022 Note [...] authenticated by: LARISSA CHOI Date: 2022-12-19 11:40 [facility] 10-19-2022 Note PROCEDURE: XR FOOT R [...] authenticated by: TERI KAY Date: 2022-10-19 08:47 [facility] 09-28-2022 Note PROCEDURE: XR FOOT R [...] authenticated by: BARBARA HERNANDEZ Date: 2022-09-28 16:30 [facility] 09-08-2022 Note PROCEDURE: XR FOOT R [...] authenticated by: TERI KAY Date: 2022-09-08 07:03 [facility] 08-15-2022 Note PROCEDURE: XR FOOT R [...] by: BARBARA HERNANDEZ Date: 2022-08-15 08:[address] [facility] 08-15-2022 Note PROCEDURE: XR FOOT [...] authenticated by: BARBARA HERNANDEZ Date: 2022-08-15 08:58 [facility] 06-15-2022 Note PROCEDURE: XR FOOT R T MIN 3 VIEWS COMPARISON: 09/08/2021 HISTORY: Pain in right foot FINDINGS: BONES:No acute fracture or dislocation. Stable [id number] degenerative change with joint space narrowing marginal osteophyte formation most significant in the midfoot SOFT TISSUES:Negative. No visible soft tissue swelling. EFFUSION:None visible. OTHER: Negative. IMPRESSION: Stable degenerative changes Electronically authenticated by: BARBARA HERNANDEZ Date: 2022-06-15 08:48 [facility] 02-03-2022 Evaluation note Encounter Date Diagnosis [...] - M65.331) Currently resolved. Continue to monitor [facility] 07-01-2022 Evaluation note* Encounter Date Diagnosis [...] as documented in the electronic medical record. 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 I have advised against the [facility] use of narcotic pain medication. I have [...] as documented in the electronic medical record. [facility] History general Narrative - Reported* Type Description Date Medical History Hypertension Medical History chronic depression Medical History hearing loss Surgical History hysterectomy-partial 2016 [facility] Other Summary Purpose Family History No Family History Records FoundNo Family History Records FoundNo Family History Records Found Advance Directives No Advanced Directives Records FoundNo Advanced Directives Records FoundNo Advanced Directives Records Found Additional Source Comments REASON FOR VISIT (unrecogniz ed section and content) Bilateral Carpal TunnelRight Hip PainRecheck Left Wrist INFORMATION SOURCE (unrecogn ized section and content) DATE CREATED AUTHOR 01/30/2022 [facility] DATE CREATED AUTHOR AUTHOR'S ORGANIZ ATION 02/17/2022 [facility] DATE CREATED AUTHOR AUTHOR'S ORGANIZ ATION 01/05/2023 [facility] FOR RECORDS PERTAINING TO PATIENTS [...] BE BASED ON THE PRIMARY CLINICAL RECORDS. [employer] [facility]. provides no warranty or guarantee of the accuracy or completeness of information in this document.
== END 2024-01-30 15:19 | disposition home or self-care (01) ==
LOC: EC 15:18
PROVIDERS: PCP Nurse Practitioner Family; Visit Provider Podiatrist Foot & Ankle Surgery
DX: M79.671 Pain in right foot (principal); M24.674 Ankylosis, right foot
CPT/HCPCS: 73630

== ENCOUNTER 2024-02-19 15:27 | Outpatient (OUT) | payer OTHER, SELFPAY ==
--- NOTE | 2024-02-19 | XR_ITS ---
[address] [address] Patient Name: LAWRENCE LIZAMA MRN: [id number] date: 1970 Sex: F Assigned Patient Location: Current Patient Location: Accession/Order Number: [id number] Exam Date: 02/19/2024 15:30 Report Date: 02/20/2024 07:41 At the request of: LOS VENTURA Procedure: XR foot RT min 3V PROCEDURE: XR foot RT min 3V COMPARISON: 01/30/2024 HISTORY: RIGHT FOOT PAIN FINDINGS: BONES:Stable subtalar fusion. Stable surgical staple across the navicular and intermediate cuneiform. Moderate degenerative changes with joint space narrowing and marginal osteophyte formation SOFT TISSUES:Diffuse ankle soft tissue swelling EFFUSION:Moderate diffuse OTHER: Negative. XR/XR foot RT min 3V IMPRESSION: Stable postsurgical and degenerative changes Electronically authenticated by: BARBARA HERNANDEZ Date: 02/20/2024 07:41
--- OUTSIDE RECORDS SUMMARY | 2024-02-19 15:32 | XMS_ITS | CCD ---
Author Organization [facility] CliniSynj Care Team Providers Care Cafe Or Restaurant Manager Name Role Phone Rai Alvarenga Unavailable KEL [...] Martinez Consulting Unavailable LOS VENTURA Consulting Unavailable ZEIO ., MARY MIKE Consulting Unavailable ZAC II, [...] GRILLIS ., DR JASIEL Hutchinson Consulting Unavaila JASIEL Avelar Consulting Unavailable ESPERANZA LAMAR Consulting Unavailable SUSIE KEMP Consulting Unavailable KEL MONGTOMERY Primary Care Unavailable ADRIANA KIM Admitting Unavailable [...] Attending Unavailable NEEL WEBBER Consulting Unavailable VALENTINA, [facility] Primary Care Unavailable VALENTINA, KEL Admitting Unavailable VALENTINA, KEL Attending Unavailable VALENTINA, [facility] Primary Care Unavailable VALENTINA, KEL Admitting Unavailable VALENTINA, KEL Attending Unavailable VALENTINA, KEL Consulting Unavailable RAI ALVARENGA Admitting Unavailable COLETTE, RAI Attending Unavailable VALENTINA, [facility] Primary Care Unavailable COLETTE, RAI Consulting Unavailable VALENTINA, KEL Primary Care Unavailable HIGHLANDER, LOS D Attending Unavailable HIGHLANDER, LOS D Consulting Unavailable HIGHLANDER, PETER D Admitting Unavailable VALENTINA, KEL Primary Care Unavailable HIGHLANDER, LOS D Attending Unavailable HIGHLANDER, PETER D Admitting Unavailable WEST, DR BARBAAR Greer Consulting Unavailable HIGHLANDER, LOS Mtz Consulting Unavailable VALENTINA, [facility] Primary Care Unavailable GRILLIS ., DR JASIEL Hutchinson Consulting Unavaila ble GRILLIS ., DR JASIEL Hutchinson Admitting Unavaila ble GRILLIS ., DR JASIEL Hutchinson Attending Unavaila ble VALENTINA, [facility] Primary Care Unavailable GRILLIS ., DR JASIEL Hutchinson Admitting Unavaila ble GRILLIS ., DR JASIEL Hutchinson Attending Unavaila ble GRILLIS ., DR JASIEL Hutchinson Consulting Unavaila ble GIVOANNA, OLLIE JOY Consulting Unava ilESPERANZA Moody Consulting [...] Facility (3 sources) Aspirin Drug Allergy Unknown [employer] Other (3 sources) Latex Propensity to adverse reactions Unknown [employer] Other (2 sources) Aspirin Drug Allergy [facility] (2 sources) Latex Drug allergy (disorder) [facility] Medications Current Medications Medication Drug [...] mouth every week Vitamin D3 1.25 MG (02511 UT) 1 capsule Orally once per week [...] by: Elizabeth INFANTE Date: 2022-11-10 23:57 Normal [facility] US KIDNEYS BLADDERon 023 US KIDNEYS BLADDER US KIDNEYS BLADDER EXAM DATE: 09/23/2022 6:34 AM [facility] COMPARISON: None available. INDICATION: Recurrent UTI. TECHNIQUE: Real-time ultrasound scanning of the kidneys and bladder was performed by the field services analyst. Quality Worker static images are submitted for review. FINDINGS: [...] NEEL WEBBER Date: 2022-09-23 14:49 Normal [facility] CBC AUTO DIFFon 08-15-2022 BASO # 0.0 103/ul Normal 0.0-0.1 [facility] Comment on above: Performed By: #### C BC #### [facility] [address] [place] [address] Dr. Arianna Hamlin Basophils/100 WBC (Bld) 0.3 % Normal 0.2-2.0 [facility] Comment on above: Performed By: #### C BC #### [facility] [address] [place] [address] Dr. Arianna Hamlin EO # 0.0 103/ul Normal 0.0-0.7 [facility] Comment on above: Performed By: #### C BC #### [facility] [address] [place] [address] Dr. Arianna Hamlin Eosinophils/100 WBC (Bld) 0.1 % Critically low 0.9-7.0 [facility] Comment on above: Performed By: #### C BC #### [facility] [address] [place] [address] Dr. Arianna Hamlin Erythrocyte distribution width (RBC) [Ratio] 12.2 % Normal 11.0-15.0 [facility] Comment on above: Performed By: #### C BC #### [facility] [address] [place] [address] Dr. Arianna Hamlin Hematocrit (Bld) [Volume fraction] 35.9 % Critically low 36.0-48.0 [facility] Comment on above: Performed By: #### C BC #### [facility] [address] [place] [address] Dr. Arianna Hamlin Hemoglobin (Bld) [Mass/Vol] 12.0 g/dL Normal 12.0-16.0 [facility] Comment on above: Performed By: #### C BC #### [facility] [address] [place] [address] Dr. Arianna Hamlin IG # 0.02 10e3/ul Normal 0.00-0.03 [facility] Comment on above: Performed By: #### C BC #### [facility] [address] [place] [address] Dr. Arianna Hamlin IG % 0.3 % Normal 0.0-0.5 [facility] Comment on above: Performed By: #### C BC #### [facility] [address] [place] [address] Dr. Arianna Hamlin LYMPH # 1.8 103/ul Normal 1.2-3.8 [facility] Comment on above: Performed By: #### C BC #### [facility] [address] [place] [address] Dr. Arianna Hamlin Lymphocytes/100 WBC (Bld) 22.8 % Normal 20.5-60.0 [facility] Comment on above: Performed By: #### C BC #### [facility] [address] [place] [address] Dr. Arianna Hamlin MANUAL DIFF REQ NO Normal [facility] Comment on above: Performed By: #### C BC #### [facility] [address] [place] [address] Dr. Arianna Hamlin MCH (RBC) [Entitic mass] 27.8 pg Normal 26.7-34.0 [facility] Comment on above: Performed By: #### C BC #### [facility] [address] [place] [address] Dr. Arianna Hamlin MCHC (RBC) [Mass/Vol] 33.4 g/dL Normal 29.9-35.2 [facility] Comment on above: Performed By: #### C BC #### [facility] [address] [place], [place] [id number] Dr. Arianna Hamlin MCV (RBC) [Entitic vol] 83.1 fL Normal 81.0-99.0 [facility] Comment on above: Performed By: #### C BC #### [facility] [address] [place] [address] Dr. Arianna Hamlin MONO # 0.9 103/ul Critically high 0.3-0.8 [facility] Comment on above: Performed By: #### C BC #### [facility] [address] [place] [address] Dr. Arianna Hamlin Monocytes/100 WBC (Bld) 10.8 % Normal 1.7-12.0 [facility] Comment on above: Performed By: #### C BC #### [facility] [address] [place] [address] Dr. Arianna Hamlin NEUT # 5.2 103/ul Normal 1.4-6.5 [facility] Comment on above: Performed By: #### C BC #### [facility] [address] [place] [address] Dr. Arianna Hamlin Neutrophils/100 WBC (Bld) 65.7 % Normal 43.0-75.0 [facility] Comment on above: Performed By: #### C BC #### [facility] [address] [place] [address] Dr. Arianna Hamlin Platelet mean volume (Bld) [Entitic vol] 10.2 fL Normal 9.5-13.5 [facility] Comment on above: Performed By: #### C BC #### [facility] [address] [place] [address] Dr. Arianna Hamlin PLT 243 103/ul Normal 150-450 [facility] Comment on above: Performed By: #### C BC #### [facility] [address] [place] [address] Dr. Arianna Hamlin RBC 4.32 106/ul Normal 4.20-5.40 [facility] Comment on above: Performed By: #### C BC #### [facility] [address] [place] [address] Dr. Arianna Hamlin WBC 7.9 103/ul Normal 4.0-11.0 [facility] Comment on above: Performed By: #### C BC #### [facility] [address] [place] [address] Dr. Arianna Hamlin PROF CHEM 8 (BAS METB)on Anion gap [Moles/Vol] 10.8 mmol/L Normal [facility] Comment on above: Performed By: #### B MP #### [facility] [address] [address] [address] Arianna Hamlin Calcium [Mass/Vol] 9.0 mg/dL Normal 8.5-10.1 [facility] Comment on above: Performed By: #### B MP #### [facility] [address] [place] [address] Dr. Arianna Hamlin Chloride [Moles/Vol] 101 mmol/L Normal 98-107 [facility] Comment on above: Performed By: #### B MP #### [facility] [address] [place] [address] Dr. Arianna Hamlin CO2 [Moles/Vol] 30.8 mmol/L Normal 21.0-32.0 [facility] Comment on above: Performed By: #### B MP #### [facility] [address] [place] [address] Dr. Arianna Hamlin Creatinine [Mass/Vol] 0.79 mg/dL Normal 0.55-1.02 [facility] Comment on above: Performed By: #### B MP #### [facility] [address] [place] [address] Dr. Arianna Hamlin EGFR-AF AZERBAIJANI >60 Normal >=60 [facility] Comment on above: Performed By: #### B MP #### [facility] [address] [place] [address] Dr. Arianna Hamlin EGFR-NON AF AZERBAIJANI >60 Normal >=60 [facility] Comment on above: Performed By: #### B MP #### [facility] [address] [place] [address] Dr. Arianna Hamlin Glucose [Mass/Vol] 110 mg/dL Critically high 74-106 T [facility] Comment on above: Performed By: #### B MP #### [facility] [address] [address] [address] Arianna Hamlin Potassium [Moles/Vol] 3.6 mmol/L Normal 3.5-5.1 [facility] Comment on above: Performed By: #### B MP #### [facility] [address] [address] [address] Arianna Hamlin Sodium [Moles/Vol] 139 mmol/L Normal 136-145 [facility] Comment on above: Performed By: #### B MP #### [facility] [address] [address] [address] Arianna Hamlin Urea nitrogen [Mass/Vol] 8.0 mg/dL Normal 7.0-18.0 [facility] Comment on above: Performed By: #### B MP #### [facility] [address] [place] [address] Dr. Arianna Hamlin Urea nitrogen/Creatinine [Mass ratio] 10.1 mg/mg Normal [facility] Comment on above: Performed By: #### B MP #### [facility] [address] [address] [address] Arianna Hamlin UA RANDOMon 08-15-2022 Bilirubin Ql (U) Negative Normal NEGATIVE [facility] Comment on above: Performed By: #### C BC #### [facility] [address] [place] [address] Dr. Arianna Hamlin Clarity (U) CLEAR Normal CLEAR [facility] Comment on above: Performed By: #### C BC #### [facility] [address] [place] [address] Dr. Arianna Hamlin Glucose Ql (U) Negative Normal NEGATIVE [facility] Comment on above: Performed By: #### C BC #### [facility] [address] [place] [address] Dr. Arianna Hamlin Hemoglobin Ql (U) Negative Normal NEGATIVE [facility] Comment on above: Performed By: #### C BC #### [facility] [address] [address] [address] Arianna Hamlin Ketones Ql (U) Negative Normal NEGATIVE [facility] Comment on above: Performed By: #### C BC #### [facility] [address] [place] [address] Dr. Arianna Hamlin LEUKOCYTES MODERATE Abnormal NEGATIVE [facility] Comment on above: Performed By: #### C BC #### [facility] [address] [place] [address] Dr. Arianna Hamlin Nitrite Ql (U) Negative Normal NEGATIVE [facility] Comment on above: Performed By: #### C BC #### [facility] [address] [place] [address] Dr. Arianna Hamlin pH (U) 7.0 [pH] Normal 5-9 [facility] Comment on above: Performed By: #### C BC #### [facility] [address] [place] [address] Dr. Arianna Hamlin SPEC GRAVITY 1.010 Normal 1.005-<=1.025 [facility] Comment on above: Performed By: #### C BC #### [facility] [address] [place] [address] Dr. Arianna Hamlin UA PROTEIN Negative Normal NEGATIVE/ TRACE [facility] Comment on above: Performed By: #### C BC #### [facility] [address] [place] [address] Dr. Arianna Hamlin Urobilinogen Qn (U) 0.2 {Ayden'U}/dL Normal 0.2 - 1. 0 [facility] Comment on above: Performed By: #### C BC #### [facility] [address] [place] [address] Dr. Arianna Hamlin XR FOOT RT 2Von [...] BARBARA HERNANDEZ Date: 2022-08-15 08:59 Normal [facility] POINT OF CARE GLUCOSEon - Glucose [Mass/Vol] 138 mg/dL Critically high 74-106 T [facility] Comment on above: Performed By: #### P OCGLUC #### [facility] [address] [place] [address] Dr. Arianna Hamlin Glucose [Mass/Vol] 94 mg/dL Normal 74-106 [facility] Comment on above: Performed By: #### P OCGLUC #### [facility] [address] [place] [address] Dr. Arianna Hamlin CBC AUTO DIFFon 08-08-2022 BASO # 0.0 103/ul Normal 0.0-0.1 [facility] Comment on above: Performed By: #### C BC #### [facility] [address] [place] [address] Dr. Arianna Hamlin Basophils/100 WBC (Bld) 0.7 % Normal 0.2-2.0 [facility] Comment on above: Performed By: #### C BC #### [facility] [address] [place] [address] Dr. Arianna Hamlin EO # 0.1 103/ul Normal 0.0-0.7 [facility] Comment on above: Performed By: #### C BC #### [facility] [address] [place] [address] Dr. Arianna Hamlin Eosinophils/100 WBC (Bld) 1.3 % Normal 0.9-7.0 [facility] Comment on above: Performed By: #### C BC #### [facility] [address] [place] [address] Dr. Arianna Hamlin Erythrocyte distribution width (RBC) [Ratio] 12.3 % Normal 11.0-15.0 [facility] Comment on above: Performed By: #### C BC #### [facility] [address] [place] [address] Dr. Arianna Hamlin Hematocrit (Bld) [Volume fraction] 38.4 % Normal 36.0-48.0 [facility] Comment on above: Performed By: #### C BC #### [facility] [address] [place] [address] Dr. Arianna Hamlin Hemoglobin (Bld) [Mass/Vol] 13.2 g/dL Normal 12.0-16.0 [facility] Comment on above: Performed By: #### C BC #### [facility] [address] [place] [address] Dr. Arianna Hamlin IG # 0.01 10e3/ul Normal 0.00-0.03 [facility] Comment on above: Performed By: #### C BC #### [facility] [address] [place] [address] Dr. Arianna Hamlin IG % 0.2 % Normal 0.0-0.5 [facility] Comment on above: Performed By: #### C BC #### [facility] [address] [place] [address] Dr. Arianna Hamlin LYMPH # 1.8 103/ul Normal 1.2-3.8 [facility] Comment on above: Performed By: #### C BC #### [facility] [address] [place] [address] Dr. Arianna Hamlin Lymphocytes/100 WBC (Bld) 30.8 % Normal 20.5-60.0 [facility] Comment on above: Performed By: #### C BC #### [facility] [address] [place] [address] Dr. Arianna Hamlin MANUAL DIFF REQ NO Normal [facility] Comment on above: Performed By: #### C BC #### [facility] [address] [place] [address] Dr. Arianna Hamlin MCH (RBC) [Entitic mass] 27.7 pg Normal 26.7-34.0 [facility] Comment on above: Performed By: #### C BC #### [facility] [address] [place] [address] Dr. Arianna Hamlin MCHC (RBC) [Mass/Vol] 34.4 g/dL Normal 29.9-35.2 [facility] Comment on above: Performed By: #### C BC #### [facility] [address] [place] [address] Dr. Arianna Hamlin MCV (RBC) [Entitic vol] 80.7 fL Critically low 81.0-99.0 [facility] Comment on above: Performed By: #### C BC #### [facility] [address] [place] [address] Dr. Arianna Hamlin MONO # 0.4 103/ul Normal 0.3-0.8 [facility] Comment on above: Performed By: #### C BC #### [facility] [address] [place] [address] Dr. Arianna Hamlin Monocytes/100 WBC (Bld) 7.1 % Normal 1.7-12.0 [facility] Comment on above: Performed By: #### C BC #### [facility] [address] [place] [address] Dr. Arianna Hamlin NEUT # 3.6 103/ul Normal 1.4-6.5 [facility] Comment on above: Performed By: #### C BC #### [facility] [address] [place] [address] Dr. Arianna Hamlin Neutrophils/100 WBC (Bld) 59.9 % Normal 43.0-75.0 [facility] Comment on above: Performed By: #### C BC #### [facility] [address] [place] [address] Dr. Arianna Hamlin Platelet mean volume (Bld) [Entitic vol] 9.5 fL Normal 9.5-13.5 [facility] Comment on above: Performed By: #### C BC #### [facility] [address] [place] [address] Dr. Arianna Hamlin PLT 248 103/ul Normal 150-450 [facility] Comment on above: Performed By: #### C BC #### [facility] [address] [place] [address] Dr. Arianna Hamlin RBC 4.76 106/ul Normal 4.20-5.40 [facility] Comment on above: Performed By: #### C BC #### [facility] [address] [place] [address] Dr. Arianna Hamlin WBC 5.9 103/ul Normal 4.0-11.0 [facility] Comment on above: Performed By: #### C BC #### [facility] [address] [place] [address] Dr. Arianna Hamlin Covid-19 PCR ([facility])on 07-30 SARS-CoV-2 (COVID-19) RNA RICHARD+probe Ql (Unsp spec) Not detected Normal NOT DETECTED [facility] Comment on above: Result Comment: This test is not yet approved or cleared by the [place] FDA. When there are no FDA-approved or cleared tests available, and other criteria are met, FDA can make tests available under an emergency access mechanism called an Emergency Use Authorization (EUA). The EUA for this test is supported by the [place] of Health and Human Service's (HHS's) declaration [...] SARS-CoV-2. Performed By: #### C VDTB #### [facility] [address] [place] [address] [address] Arianna Hamlin PROF CHEM 8 (BAS METB)on Anion gap [Moles/Vol] 10.1 mmol/L Normal [facility] Comment on above: Performed By: #### B MP #### [facility] [address] [place] [address] [address] [address] Arianna Hamlin Calcium [Mass/Vol] 9.2 mg/dL Normal 8.5-10.1 [facility] Comment on above: Performed By: #### B MP #### [facility] [address] [place] [address] [address] [address] Arianna Hamlin Chloride [Moles/Vol] 103 mmol/L Normal 98-107 [facility] Comment on above: Performed By: #### B MP #### [facility] [address] [address] [address] Arianna Hamlin CO2 [Moles/Vol] 30.7 mmol/L Normal 21.0-32.0 [facility] Comment on above: Performed By: #### B MP #### [facility] [address] [address] [address] Arianna Hamlin Creatinine [Mass/Vol] 0.86 mg/dL Normal 0.55-1.02 [facility] Comment on above: Performed By: #### B MP #### [facility] [address] [address] [address] Arianna Hamlin EGFR-AF AZERBAIJANI >60 Normal >=60 [facility] Comment on above: Performed By: #### B MP #### [facility] [address] [address] [address] Arianna Hamlin EGFR-NON AF AZERBAIJANI >60 Normal >=60 [facility] Comment on above: Performed By: #### B MP #### [facility] [address] [address] [address] Arianna Hamlin Glucose [Mass/Vol] 77 mg/dL Normal 74-106 [facility] Comment on above: Performed By: #### B MP #### [facility] [address] [address] [address] Arianna Hamlin Potassium [Moles/Vol] 3.8 mmol/L Normal 3.5-5.1 [facility] Comment on above: Performed By: #### B MP #### [facility] [address] [address] [address] Arianna Hamlin Sodium [Moles/Vol] 140 mmol/L Normal 136-145 [facility] Comment on above: Performed By: #### B MP #### [facility] [address] [address] [address] Arianna Hamlin Urea nitrogen [Mass/Vol] 8.0 mg/dL Normal 7.0-18.0 [facility] Comment on above: Performed By: #### B MP #### [facility] [address], [place] [address] Dr. Arianna Hamlin Urea nitrogen/Creatinine [Mass ratio] 9.3 mg/mg Normal [facility] Comment on above: Performed By: #### B MP #### [facility] [address], [place] [address] Dr. Arianna Hamlin Covid-19 PCR ([facility])on SARS-CoV-2 (COVID-19) RNA RICHARD+probe Ql (Unsp spec) Not detected Normal NOT DETECTED [facility] Comment on above: Result Comment: This test is not yet approved or cleared by the [place] FDA. When there are no FDA-approved or cleared tests available, and other criteria are met, FDA can make tests available under an emergency access mechanism called an Emergency Use Authorization (EUA). The EUA for this test is supported by the [place] of Health and Human Service's (HHS's) declaration [...] SARS-CoV-2. Performed By: #### B MP #### [facility] [address] [place] [address] [address] [address] Arianna Hamlin MRI ANKLE RT WO [...] DALTON ALVARENGA Date: 2022-06-24 12:09 Normal [facility] H PYLORI TISSUEon 05-17-2022 H PYL TISSUE, UREASE Negative Normal NEGATIVE [facility] Comment on above: Performed By: #### B MP #### [facility] [address] [place] [address] Arianna Hamlin Covid-19 PCR ([facility])on 04-29 SARS-CoV-2 (COVID-19) RNA RICHARD+probe Ql (Unsp spec) Not detected Normal NOT DETECTED [facility] Comment on above: Result Comment: This test is not yet approved or cleared by the [place] FDA. When there are no FDA-approved or cleared tests available, and other criteria are met, FDA can make tests available under an emergency access mechanism called an Emergency Use Authorization (EUA). The EUA for this test is supported by the [place] of Health and Human Service's (HHS's) declaration [...] SARS-CoV-2. Performed By: #### C VDTBH #### [facility] [address] [place] [address] Dr. Arianna Hamlin FLORINA by IFAon 05-11-2022 Antinuclear Antibodies, IFA Negative Normal [facility] Comment on above: Result Comment: Nega tive <1:80 Borderline 1:80 Positive >1:80 ICAP nomenclature: AC-0 For more information about Hep-2 cell patterns use ANApatterns.org, the official website for the International Consensus on Antinuclear Antibody (FLORINA) Patterns (ICAP). Performed By: #### B MP #### [facility] [address], [place] [address] Dr. Arianna Hamlin CULTURE URINEon 05-11-2022 CULTURE [...] Trimethoprim/Sulfameth oxazole <=20 S C Normal [facility] Comment on above: Performed By: #### C BC #### [facility] [address] [place] [address] Dr. Arianna Hamlin ANTISTREPTOLYSIN O AB (ASO)o n 05-10-2022 Antistreptolysin O Ab 45.8 IU/mL Normal 0.0-200.0 [facility] Comment on above: Performed By: #### C BC #### [facility] [address] [place] [address] Dr. Arianna Hamlin RHEUMATOID FACTORon 05-10-20 22 RA Latex Turbid. <10.0 Normal <14.0 [facility] Comment on above: Performed By: #### B MP #### [facility] [address] [place] [address] Dr. Arianna Hamlin CRPon 05-08-2022 CRP [Mass/Vol] mg/L Normal <=1.0 [facility] Comment on above: Performed By: #### C BC #### [facility] [address] [place] [address] Dr. Arianna Hamlin UA RANDOM W/MICROSCOPICon BACTERIA LARGE Abnormal NONE SEEN [facility] Comment on above: Performed By: #### U AMIC #### [facility] [address] [place] [address] Dr. Arianna Hamlin Bilirubin Ql (U) Negative Normal NEGATIVE [facility] Comment on above: Performed By: #### U AMIC #### [facility] [address] [address] [address] Arianna Hamlin CAST NONE SEEN Normal NONE SEEN [facility] Comment on above: Performed By: #### U AMIC #### [facility] [address] [address] [address] Arianna Hamlin Clarity (U) CLEAR Normal CLEAR [facility] Comment on above: Performed By: #### U AMIC #### [facility] [address] [address] [address] Arianna Hamlin Color (U) LT. YELLOW Normal YELLOW [facility] Comment on above: Performed By: #### U AMIC #### [facility] [address] [address] [address] Arianna Hamlin Crystals LM Nom (Urine sed) NONE SEEN Normal NONE SEEN [facility] Comment on above: Performed By: #### U AMIC #### [facility] [address] [place] [address] Dr. rAianna Hamlin Epithelial cells LM Ql (Urine sed) FEW Abnormal NONE SEEN /RARE [facility] Comment on above: Performed By: #### U AMIC #### [facility] [address] [address] [address] Arianna Hamlin Glucose Ql (U) Negative Normal NEGATIVE [facility] Comment on above: Performed By: #### U AMIC #### [facility] [address] [place] [address] Dr. Arianna Hamlin Hemoglobin Ql (U) SMALL Abnormal NEGATIVE [facility] Comment on above: Performed By: #### U AMIC #### [facility] [address] [address] [address] Arianna Hamlin Ketones Ql (U) TRACE Abnormal NEGATIVE [facility] Comment on above: Performed By: #### U AMIC #### [facility] [address] [address] [address] Arianna Hamlin LEUKOCYTES MODERATE Abnormal NEGATIVE [facility] Comment on above: Performed By: #### U AMIC #### [facility] [address] [address] [address] Arianna Hamlin MUCOUS NONE SEEN Normal NONE SEEN [facility] Comment on above: Performed By: #### U AMIC #### [facility] [address] [address] [address] Arianna Hamlin Nitrite Ql (U) Positive Abnormal NEGATIVE [facility] Comment on above: Performed By: #### U AMIC #### [facility] [address] [place] [address] Dr. Arianna Hamlin pH (U) 6.0 [pH] Normal 5-9 [facility] Comment on above: Performed By: #### U AMIC #### [facility] [address] [place] [address] Dr. Arianna Hamlin RBC 2-5 Abnormal 0-2 [facility] Comment on above: Performed By: #### U AMIC #### [facility] [address] [place] [address] Dr. Arianna Hamlin SPEC GRAVITY >=1.030 Abnormal 1.005-<=1.025 [facility] Comment on above: Performed By: #### U AMIC #### [facility] [address] [place] [address] Dr. Arianna Hamlin UA PROTEIN Negative Normal NEGATIVE/ TRACE [facility] Comment on above: Performed By: #### U AMIC #### [facility] [address] [place] [address] Dr. Arianna Hamlin Urobilinogen Qn (U) 0.2 {Ayden'U}/dL Normal 0.2 - 1. 0 [facility] Comment on above: Performed By: #### U AMIC #### [facility] [address] [place] [address] Dr. Arianna Hamlin WBC 20-50 Abnormal NONE SEEN [facility] Comment on above: Performed By: #### U AMIC #### [facility] [address] [place] [address] Dr. Arianna Hamlin URIC ACID SERUMon 05-08-2022 Urate [Mass/Vol] 4.1 mg/dL Normal 2.6-6.0 [facility] Comment on above: Performed By: #### U BETY, CRP #### [facility] [address] [address] [address] Arianna Hamlin XR hip RT min 2V(w/wo pelvis )*on 01-27-2022 XR hip RT min 2V(w/wo pelvis)* [facility] [address] [place] [address] XRay Report Signed Patient: Simin Caro MR#: [id number] : 1970 Acct:[id number] Age/Sex: 51 / F ADM Date: 01/27/22 Loc: [facility] Room: Type: [facility] CLI Attending Dr: Rai Alvarenga DO Copies [...] Oates Jr., DemetrisOHarris01/27/2022 9:14 AM Dictation Location: [place] [address] Transcribed By: [facility] 01/27/22913 Dictated By: Fabio Oates Jr, DO 01/27/22 0910 Signed By: 01/27/22 [address] [facility] CBC AUTO DIFFon 01-24-2022 BASO # 0.1 103/ul Normal 0.0-0.1 [facility] Comment on above: Performed By: #### C BC #### [facility] [address] [address] [address] Arianna Hamlin Basophils/100 WBC (Bld) 0.9 % Normal 0.2-2.0 [facility] Comment on above: Performed By: #### C BC #### [facility] [address] [address] [address] Arianna Hamlin EO # 0.1 103/ul Normal 0.0-0.7 [facility] Comment on above: Performed By: #### C BC #### [facility] [address] [place] [address] Dr. Arianna Hamlin Eosinophils/100 WBC (Bld) 2.2 % Normal 0.9-7.0 [facility] Comment on above: Performed By: #### C BC #### [facility] [address] [place] [address] Dr. Arianna Hamlin Erythrocyte distribution width (RBC) [Ratio] 12.7 % Normal 11.0-15.0 [facility] Comment on above: Performed By: #### C BC #### [facility] [address] [place] [address] Dr. Arianna Hamlin Hematocrit (Bld) [Volume fraction] 42.6 % Normal 36.0-48.0 [facility] Comment on above: Performed By: #### C BC #### [facility] [address] [place] [address] Dr. Arianna Hamlin Hemoglobin (Bld) [Mass/Vol] 14.2 g/dL Normal 12.0-16.0 [facility] Comment on above: Performed By: #### C BC #### [facility] [address] [place] [address] Dr. Arianna Hamlin IG # 0.02 10e3/ul Normal 0.00-0.03 [facility] Comment on above: Performed By: #### C BC #### [facility] [address] [place] [address] Dr. Arianna Hamlin IG % 0.4 % Normal 0.0-0.5 [facility] Comment on above: Performed By: #### C BC #### [facility] [address] [place] [address] Dr. Arianna Hamlin LYMPH # 2.0 103/ul Normal 1.2-3.8 [facility] Comment on above: Performed By: #### C BC #### [facility] [address] [place] [address] Dr. Arianna Hamlin Lymphocytes/100 WBC (Bld) 38.1 % Normal 20.5-60.0 [facility] Comment on above: Performed By: #### C BC #### [facility] [address] [place] [address] Dr. Arianna Hamlin MANUAL DIFF REQ NO Normal [facility] Comment on above: Performed By: #### C BC #### [facility] [address] [place] [address] Dr. Arianna Hamlin MCH (RBC) [Entitic mass] 28.1 pg Normal 26.7-34.0 [facility] Comment on above: Performed By: #### C BC #### [facility] [address] [place] [address] Dr. Arianna Hamlin MCHC (RBC) [Mass/Vol] 33.3 g/dL Normal 29.9-35.2 [facility] Comment on above: Performed By: #### C BC #### [facility] [address] [place] [address] Dr. Arianna Hamlin MCV (RBC) [Entitic vol] 84.4 fL Normal 81.0-99.0 [facility] Comment on above: Performed By: #### C BC #### [facility] [address] [place] [address] Dr. Arianna Hamlin MONO # 0.4 103/ul Normal 0.3-0.8 [facility] Comment on above: Performed By: #### C BC #### [facility] [address] [place] [address] Dr. Arianna Hamlin Monocytes/100 WBC (Bld) 7.3 % Normal 1.7-12.0 [facility] Comment on above: Performed By: #### C BC #### [facility] [address] [place] [address] Dr. Arianna Hamlin NEUT # 2.7 103/ul Normal 1.4-6.5 [facility] Comment on above: Performed By: #### C BC #### [facility] [address] [place] [address] Dr. Arianna Hamlin Neutrophils/100 WBC (Bld) 51.1 % Normal 43.0-75.0 [facility] Comment on above: Performed By: #### C BC #### [facility] [address] [place] [address] Dr. Arianna Hamlin Platelet mean volume (Bld) [Entitic vol] 9.8 fL Normal 9.5-13.5 [facility] Comment on above: Performed By: #### C BC #### [facility] [address] [place] [address] Dr. Arianna Hamlin PLT 276 103/ul Normal 150-450 [facility] Comment on above: Performed By: #### C BC #### [facility] [address] [place] [address] Dr. Arianna Hamlin RBC 5.05 106/ul Normal 4.20-5.40 [facility] Comment on above: Performed By: #### C BC #### [facility] [address] [place] [address] Dr. Arianna Hamlin WBC 5.4 103/ul Normal 4.0-11.0 [facility] Comment on above: Performed By: #### C BC #### [facility] [address] [place] [address] Dr. Arianna Hamlin PROF 14(COMP METB)on 022 Albumin [Mass/Vol] 4.2 g/dL Normal 3.4-5.0 [facility] Comment on above: Performed By: #### B MP #### [facility] [address] [place] [address] Dr. Arianna Hamlin Albumin/Globulin [Mass ratio] 1.3 {ratio} Normal [facility] Comment on above: Performed By: #### B MP #### [facility] [address] [place] [address] Dr. Arianna Hamlin ALP [Catalytic activity/Vol] 92 U/L Normal 46-116 [facility] Comment on above: Performed By: #### B MP #### [facility] [address] [place] [address] Dr. Arianna Hamlin ALT [Catalytic activity/Vol] 25 U/L Normal 14-59 [facility] Comment on above: Performed By: #### B MP #### [facility] [address] [address] [address] Arianna Hamlin Anion gap [Moles/Vol] 10.4 mmol/L Normal [facility] Comment on above: Performed By: #### B MP #### [facility] [address] [address] [address] Arianna Hamlin AST [Catalytic activity/Vol] 20 U/L Normal 15-37 [facility] Comment on above: Performed By: #### B MP #### [facility] [address] [address] [address] Arianna Hamlin Bilirubin [Mass/Vol] 0.2 mg/dL Normal 0.2-1.0 [facility] Comment on above: Performed By: #### B MP #### [facility] [address] [address] [address] Arianna Hamlin Calcium [Mass/Vol] 9.0 mg/dL Normal 8.5-10.1 [facility] Comment on above: Performed By: #### B MP #### [facility] [address] [address] [address] Arianna Hamlin Chloride [Moles/Vol] 103 mmol/L Normal 98-107 [facility] Comment on above: Performed By: #### B MP #### [facility] [address] [address] [address] Arianna Hamlin CO2 [Moles/Vol] 29.7 mmol/L Normal 21.0-32.0 [facility] Comment on above: Performed By: #### B MP #### [facility] [address] [address] [address] Arianna Hamlin Creatinine [Mass/Vol] 0.87 mg/dL Normal 0.55-1.02 [facility] Comment on above: Performed By: #### B MP #### [facility] [address] [address] [address] Arianna Hamlin EGFR-AF AZERBAIJANI >60 Normal >=60 [facility] Comment on above: Performed By: #### B MP #### [facility] [address] [address] [address] Arianna Hamlin EGFR-NON AF AZERBAIJANI >60 Normal >=60 [facility] Comment on above: Performed By: #### B MP #### [facility] [address] [place] [address] Dr. Arianna Hamlin Globulin (S) [Mass/Vol] 3.3 g/dL Normal [facility] Comment on above: Performed By: #### B MP #### [facility] [address] [address] [address] Arianna Hamlin Glucose [Mass/Vol] 99 mg/dL Normal 74-106 [facility] Comment on above: Performed By: #### B MP #### [facility] [address] [place] [address] Dr. Arianna Hamlin Potassium [Moles/Vol] 4.1 mmol/L Normal 3.5-5.1 [facility] Comment on above: Performed By: #### B MP #### [facility] [address] [place] [address] Dr. Arianna Hamlin Protein [Mass/Vol] 7.5 g/dL Normal 6.4-8.2 [facility] Comment on above: Performed By: #### B MP #### [facility] [address] [place] [address] Dr. Arianna Hamlin Sodium [Moles/Vol] 139 mmol/L Normal 136-145 [facility] Comment on above: Performed By: #### B MP #### [facility] [address] [place] [address] Dr. Arianna Hamlin Urea nitrogen [Mass/Vol] 11.0 mg/dL Normal 7.0-18.0 [facility] Comment on above: Performed By: #### B MP #### [facility] [address] [place] [address] Dr. Arianna Hamlin Urea nitrogen/Creatinine [Mass ratio] 12.6 mg/mg Normal [facility] Comment on above: Performed By: #### B MP #### [facility] [address] [place] [address] Dr. Arianna Hamlin Provider Letteron 09-06-2021 Provider Letter September 06, 2021 SIM[address]O [address] [place] [id number] SIMIN CARO 1970 Dear Simin_ , We have been trying to reach you with no success. It is important that you return our call regarding your referral from Melinda Rodriguez upon receiving this letter. Also, at the time of your call, please provide us with your correct phone number. . Thank you for your prompt attention to this matter. Sincerely, General Surgery [phone] [facility] Physician Referralon 022 Physician Referral [phone] [id number]:[id number] [facility] Vital Signs Date Time Vital Sign Value Performing Clinician Faci lity 02-03-2022 12:15-0400 Body height 160.02 cm Rai Alvarenga Other [facility] Other 02-03-2022 12:15-0400 Body mass index (BMI) [Ratio] 36.13 kg/m2 Rai Alvarenga Other [facility] Other 02-03-2022 12:15-0400 Body weight 92.53 kg Rai Alvarenga Other [facility] Other 01-27-2022 09:00-0400 Body height 160.02 cm Rai Alvarenga Other [facility] Other 01-27-2022 09:00-0400 Body mass index (BMI) [Ratio] 36.13 kg/m2 Rai Alvarenga Other [facility] Other 01-27-2022 09:00-0400 Body weight 92.53 kg Rai Alvarenga Other [facility] Other 10-31-2021 16:30-0400 Body height 160.02 cm Rai Alvarenga Other [facility] Other 10-31-2021 16:30-0400 Body mass index (BMI) [Ratio] 37.02 kg/m2 Rai Alvarenga Other [facility] Other 10-31-2021 16:30-0400 Body weight 94.8 kg Rai Alvarenga Other [facility] Other Encounters Encounter Date Encounter Type Care [...] Encounter for preprocedural laboratory examination LOS VENTURA [facility] Start: 08-10-2022 ambulatory KEL VALENTINA Facility: H1 Start: 08-08-2022 End: 08-09-2022 ambulatory KEL VALENTINA Facility:[facility] Start: 08-08-2022 End: 08-09-2022 Encounter for preprocedural laboratory examination KEL VALENTINA Facility:[facility] Start: 07-05-2022 End: 07-05-2022 ambulatory KEL VALENTINA Facility:[facility]1 Start: 07-01-2022 End: 07-02-2022 ambulatory KEL VALENTINA Facility:[facility]1 Start: 06-28-2022 End: 06-29-2022 ambulatory EKL VALENTINA Facility:[facility]1 Start: 06-20-2022 End: 06-21-2022 ambulatory [...] 02-03-2022 End: 02-03-2022 ambulatory Rai Alvarenga Other [facility] Other Start: 02-03-2022 Postop follow up vis it related to original px Rai Alvarenga [facility] Start: 01-27-2022 End: 01-27-2022 ambulatory Rai Alvarenga Other [facility] Other Start: 01-27-2022 Office outpatient vi sit 15 minutes Rai Alvarenga [facility] Start: 01-24-2022 End: 01-25-2022 ambulatory RAI ALVARENGA Facility:H1 Start: 10-31-2021 End: 10-31-2021 ambulatory Rai Alvarenga Other [facility] Other Start: 10-31-2021 Office outpatient ne w 45 minutes Rai Alvarenga [facility] Immunizations Immunization Date Immunization Notes Care Provider Leoncio ware 05-16-2021 influenza, injectabl e, quadrivalent, preservative free Rai Alvarenga Other [facility] Other 01-01-2021 COVID-19 Vaccine Yari - Documentation Purposes Only Rai Alvarenga Other [facility] Other Payers Date Payer Category Payer Unknown [id number] 2.16.84 [id number] 1970 Unknown [id number] 2.16.84 0.1.275390.3.579.2.593 1970 Unknown [id number] 2.16.84 0.1.947964.3.579.2.593 1970 Unknown [id number] 2.16.84 0.1.625534.3.579.2.593 1970 Unknown [id number] 2.16.84 0.1.169922.3.579.2.593 1970 Unknown [id number] 2.16.84 0.1.993831.3.579.2.593 1970 Unknown [id number] 2.16.84 0.1.105861.3.579.2.593 1970 Unknown [id number] 2.16.84 0.1.780567.3.579.2.593 1970 Unknown [id number] 2.16.84 0.1.787567.3.579.2.593 1970 Unknown [id number] 2.16.84 0.1.751475.3.579.2.593 1970 Unknown [id number] 2.16.84 0.1.969392.3.579.2.593 1970 Unknown [id number] 2.16.84 0.1.813083.3.579.2.593 1970 Unknown [id number] 2.16.84 0.1.596407.3.579.2.593 1970 Unknown [id number] 2.16.84 0.1.258633.3.579.2.593 1970 Unknown [id number] 2.16.84 0.1.165914.3.579.2.593 1970 Unknown [id number] 2.16.84 0.1.354781.3.579.2.593 1970 Unknown [id number] 2.16.84 0.1.679701.3.579.2.593 1970 Unknown [id number] 2.16.84 0.1.284448.3.579.2.593 1970 Unknown [id number] 2.16.84 0.1.181219.3.579.2.593 1970 Unknown [id number] 2.16.84 0.1.464274.3.579.2.593 1970 Unknown [id number] 2.16.84 0.1.453305.3.579.2.593 1970 Unknown [id number] 2.16.84 0.1.327144.3.579.2.593 1959 [facility] [id number] 1959 Self-pay Social History Date Type Detail Facility Sex Assigned At [facility] Other Clinical Notes 10-31-2021 to 12-19-2022 Note [...] authenticated by: LARISSA CHOI Date: 2022-12-19 11:40 [facility] 10-19-2022 Note PROCEDURE: XR FOOT [...] authenticated by: TERI KAY Date: 2022-10-19 08:47 [facility] 09-28-2022 Note PROCEDURE: XR FOOT [...] authenticated by: BARBARA HERNANDEZ Date: 2022-09-28 16:30 [facility] 09-08-2022 Note PROCEDURE: XR FOOT [...] authenticated by: TERI KAY Date: 2022-09-08 07:03 [facility] 08-15-2022 Note PROCEDURE: XR FOOT [...] by: BARBARA HERNANDEZ Date: 2022-08-15 08:58 [facility] 08-15-2022 Note PROCEDURE: XR FOOT R [...] authenticated by: BARBARA HERNANDEZ Date: 2022-08-15 08:58 [facility] 06-15-2022 Note PROCEDURE: XR FOOT R T MIN 3 VIEWS COMPARISON: 09/08/2021 HISTORY: Pain in right foot FINDINGS: BONES:No acute fracture or dislocation. Stable kizl-pr-xnmgdgsp degenerative change with joint space narrowing marginal osteophyte formation most significant in the midfoot SOFT TISSUES:Negative. No visible soft tissue swelling. EFFUSION:None visible. OTHER: Negative. IMPRESSION: Stable degenerative changes Electronically authenticated by: BARBARA HERNANDEZ Date: 2022-06-15 08:48 [facility] 02-03-2022 Evaluation note Encounter Date [...] - M65.331) Currently resolved. Continue to monitor [facility] Other 07-01-2022 Evaluation note* Encounter Date Diagnosis [...] as documented in the electronic medical record. 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 I have advised against the director long term care use of narcotic pain medication. I have [...] as documented in the electronic medical record. [facility] Other History general Narrative - Reported* Type Description Date Medical History Hypertension Medical History chronic depression Medical History hearing loss Surgical History hysterectomy-partial 2016 [facility] Other Summary Purpose Family History No Family History Records FoundNo Family History Records FoundNo Family History Records Found Advance Directives No Advanced Directives Records FoundNo Advanced Directives Records FoundNo Advanced Directives Records Found Additional Source Comments REASON FOR VISIT (unrecogniz ed section and content) Bilateral Carpal TunnelRight Hip PainRecheck Left Wrist INFORMATION SOURCE (unrecogn ized section and content) DATE CREATED AUTHOR 01/30/2022 [facility] DATE CREATED AUTHOR AUTHOR'S ORGANIZ ATION 02/17/2022 [facility] DATE CREATED AUTHOR AUTHOR'S ORGANIZ ATION 01/05/2023 [facility] FOR RECORDS PERTAINING TO PATIENTS [...] BE BASED ON THE PRIMARY CLINICAL RECORDS. [facility]. provides no warranty or guarantee of the accuracy or completeness of information in this document.
== END 2024-02-19 15:28 | disposition home or self-care (01) ==
LOC: EC 15:27
PROVIDERS: PCP Nurse Practitioner Family; Visit Provider Podiatrist Foot & Ankle Surgery
DX: M21.071 Valgus deformity, not elsewhere classified, right ankle (principal); Z98.890 Other specified postprocedural states
CPT/HCPCS: 73630

== ENCOUNTER 2024-03-11 15:23 | Outpatient (OUT) | payer OTHER, SELFPAY ==
--- NOTE | 2024-03-11 | XR_ITS ---
The [address] [address] Patient Name: LAWRENCE LIZAMA MRN: [id number] date: 1970 Sex: F Assigned Patient Location: Current Patient Location: Accession/Order Number: [id number] Exam Date: 03/11/2024 15:23 Report Date: 03/13/2024 13:50 At the request of: LOS VENTURA Procedure: XR foot RT min 3V PROCEDURE: XR foot RT min 3V HISTORY: RIGHT FOOT PAIN COMPARISON: XR foot right 02/19/2024 FINDINGS: BONES:Posterior mechanical fusion of the talocalcaneal joint via 2 screws. Stable lucency surrounding the screws. Fusion of the navicular-middle cuneiform via bone staple. SOFT TISSUES:Soft tissue swelling surrounding the ankle. EFFUSION:None visible. OTHER: Negative. XR/XR foot RT min 3V IMPRESSION: 1. Subtalar fusion with lucency surrounding the screws suggestive of movement; stable to minimally increased. Electronically authenticated by: TERI KAY Date: 03/13/2024 13:50
== END 2024-03-11 15:24 | disposition home or self-care (01) ==
LOC: EC 15:23
PROVIDERS: PCP Nurse Practitioner Family; Visit Provider Podiatrist Foot & Ankle Surgery
DX: M79.671 Pain in right foot (principal); M24.674 Ankylosis, right foot
CPT/HCPCS: 73630

== ENCOUNTER 2024-04-07 08:52 | Outpatient (OUT) | payer OTHER, SELFPAY ==
--- NOTE | 2024-04-07 08:56 | CT_ITS ---
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 Dose reduction techniques were achieved by using automated exposure control and/or adjustment of mA and/or kV according to patient size and/or use of iterative reconstruction technique. FINDINGS: BONES: No acute fracture or dislocation. Stable subtalar fusion with 2 cannulated screws. Stable fusion of the medial cuneiform and navicular with a dorsal surgical staple. Severe degenerative changes with joint space narrowing subchondral erosions and bony remodeling. No significant interval bone formation is identified. There is remote partial fusion of the lateral talar navicular joint from now removed hardware. SOFT TISSUES: Diffuse soft tissue swelling EFFUSION: Moderate joint effusion OTHER: Negative. CT/CT ankle RT wo con IMPRESSION: Stable degenerative and postsurgical changes with no significant interval bone formation or bony bridging Electronically authenticated by: BARBARA HERNANDEZ Date: 04/07/2024 15:49
== END 2024-04-07 08:53 | disposition home or self-care (01) ==
LOC: CT 08:52
PROVIDERS: PCP Nurse Practitioner Family; Visit Provider Physician Assistant
DX: M25.562 Pain in left knee (principal); M25.462 Effusion, left knee; M96.0 Pseudarthrosis after fusion or arthrodesis
CPT/HCPCS: 73564; 73700

== ENCOUNTER 2024-04-07 11:16 | Outpatient (OUT) | payer OTHER, SELFPAY ==
--- NOTE | 2024-04-07 | XR_ITS ---
[address] [address] Patient Name: LAWRENCE LIZAMA MRN: [id number] date: 1970 Sex: F Assigned Patient Location: Current Patient Location: Accession/Order Number: [id number] Exam Date: 04/07/2024 11:20 Report Date: 04/08/2024 18:59 At the request of: TERI SHEN Procedure: XR knee LT 4V EXAM: XR knee LT 4V HISTORY: LEFT KNEE PAIN COMPARISON: None. FINDINGS/IMPRESSION: 1. No acute fracture or dislocation 2. Moderate degeneration of the medial compartment. 3. Moderate degeneration at the patellofemoral compartment. Mild degeneration of the lateral compartment. 4. Small knee joint effusion. Electronically authenticated by: TANYA MANCILLA Date: 04/08/2024 18:59
--- OUTSIDE RECORDS SUMMARY | 2024-04-07 11:26 | XMS_ITS | CCD ---
Author Organization [facility]ini[facility]n Care Team Providers Care Commercial Construction Estimator Name Role Phone Rai Alvarenga Unavailable KEL [...] Unavailable NADERERandy, DR DANA Martinez Attending Unavailable NADERERandy, DR DANA Martinez Consulting Unavailable LOS VENTURA [...] Unavailable MELISSA, NONE LISTED Primary Care Unavaila LOS Tan Consulting Unavailable LOS VENTURA Admitting Unavailable HIGHLANDER, [...] Attending Unavailable VALENTINA, KEL Primary Care Unavailable COLETTE, RAI Consulting Unavailable VALENTINA, KEL Primary Care Unavailable HIGHLANDER, LOS D Attending Unavailable HIGHLANDER, LOS Mtz Consulting Unavailable HIGHLANDER, LOS D Admitting Unavailable VALENTINA, KEL Primary Care Unavailable HIGHLANDER, LOS Mtz Attending Unavailable HIGHLANDER, LOS D Admitting Unavailable WEST, DR BARBARA Greer Consulting Unavailable HIGHLANDER, LOS Mtz Consulting Unavailable VALENTINA, KEL Primary Care Unavailable GRILLIS ., DR JASIEL Hutchinson Consulting Unavaila ble GRILLIS ., DR JASIEL Hutchinson Admitting Unavaila ble GRILLIS ., DR JASIEL Hutchinson Attending Unavaila ble VALENTINA, [facility] Primary Care Unavailable GRILLIS ., DR JASIEL [...] Admitting Unavailable HIGHLANDER, LOS Mtz Attending Unavailable VALENTINA, KEL Primary Care Unavailable HOY ., DR BUTLER Admitting Unavailable HOY ., DR BUTLER Attending Unavailable ADRIANA KIM Admitting Unavailable RAHUL, DR TERI Padilla Consulting Unavailable REQUEST, DR NONE LISTED Primary Care Unavaila ble ADRIANA KIM Attending Unavailable ADRIANA KIM Consulting Unavailable Bryce Wilson Attending Unavailab Bryce Peralta Admitting Unavailab Herrera STAFF Primary Care Unavailable Allergies Allergy Classification Reported Allergen(s) Allergy Type Date of Onset Reaction(s) Facility (3 sources) Aspirin Drug Allergy Unknown [facility] [employer] Other (3 sources) Latex Propensity to adverse reactions Unknown [facility] [employer] Other (2 sources) Aspirin Drug Allergy [facility] Repository (2 sources) Latex Drug allergy (disorder) [facility] Repository (1 source) Aspirin Drug Allergy 2 [facility] Repository (1 source) Latex Drug allergy (disorder) 2 [facility] Medications Current Medications Medication [...] mouth every week Vitamin D3 1.25 MG (82101 UT) 1 capsule Orally once per week [...] by: Elizabeth INFANTE Date: 2022-11-10 23:57 Normal [facility] US KIDNEYS BLADDERon 023 US KIDNEYS BLADDER US KIDNEYS BLADDER EXAM DATE: 09/23/2022 6:34 AM MST COMPARISON: None available. INDICATION: Recurrent UTI. TECHNIQUE: Real-time ultrasound scanning of the kidneys and bladder was performed by the mortician helper. Mason Liner static images are submitted for review. FINDINGS: [...] NEEL WEBBER Date: 2022-09-23 14:49 Normal [facility] CBC AUTO DIFFon 08-15-2022 BASO # 0.0 103/ul Normal 0.0-0.1 [facility] Comment on above: Performed By: #### C BC #### [facility] [address] [address] [address] Arianna Hamlin Basophils/100 WBC (Bld) 0.3 % Normal 0.2-2.0 [facility] Comment on above: Performed By: #### C BC #### [facility] [address] [address] [address] Arianna Hamlin EO # 0.0 103/ul Normal 0.0-0.7 [facility] Comment on above: Performed By: #### C BC #### [facility] [address] [address] [address] Arianna Hamlin Eosinophils/100 WBC (Bld) 0.1 % Critically low 0.9-7.0 [facility] Comment on above: Performed By: #### C BC #### [facility] [address] [address] [address] Arianna Hamlin Erythrocyte distribution width (RBC) [Ratio] 12.2 % Normal 11.0-15.0 [facility] Comment on above: Performed By: #### C BC #### [facility] [address] [address] [address] Arianna Hamlin Hematocrit (Bld) [Volume fraction] 35.9 % Critically low 36.0-48.0 [facility] Comment on above: Performed By: #### C BC #### [facility] [address] [place] [address] Dr. Arianna Hamlin Hemoglobin (Bld) [Mass/Vol] 12.0 g/dL Normal 12.0-16.0 [facility] Comment on above: Performed By: #### C BC #### [facility] [address] [place] [address] Dr. Arianna Hamlin IG # 0.02 10e3/ul Normal 0.00-0.03 [facility] Comment on above: Performed By: #### C BC #### [facility] [address] [place] [address] Dr. Arianna Hamlin IG % 0.3 % Normal 0.0-0.5 [facility] Comment on above: Performed By: #### C BC #### [facility] [address] [place] [address] Dr. Arianna Hamlin LYMPH # 1.8 103/ul Normal 1.2-3.8 [facility] Comment on above: Performed By: #### C BC #### [facility] [address] [place] [address] Dr. Arianna Hamlin Lymphocytes/100 WBC (Bld) 22.8 % Normal 20.5-60.0 [facility] Comment on above: Performed By: #### C BC #### [facility] [address] [place] [address] Dr. Arianna Hamlin MANUAL DIFF REQ NO Normal [facility] Comment on above: Performed By: #### C BC #### [facility] [address] [place] [address] Dr. Arianna Hamlin MCH (RBC) [Entitic mass] 27.8 pg Normal 26.7-34.0 [facility] Comment on above: Performed By: #### C BC #### [facility] [address] [address] [address] Arianna Hamlin MCHC (RBC) [Mass/Vol] 33.4 g/dL Normal 29.9-35.2 [facility] Comment on above: Performed By: #### C BC #### [facility] [address] [address] [address] Arianna Hamlin MCV (RBC) [Entitic vol] 83.1 fL Normal 81.0-99.0 [facility] Comment on above: Performed By: #### C BC #### [facility] [address] [address] [address] Arianna Hamlin MONO # 0.9 103/ul Critically high 0.3-0.8 [facility] Comment on above: Performed By: #### C BC #### [facility] [address] [place] [address] Dr. Arianna Hamlin Monocytes/100 WBC (Bld) 10.8 % Normal 1.7-12.0 [facility] Comment on above: Performed By: #### C BC #### [facility] [address] [address] [address] Arianna Hamlin NEUT # 5.2 103/ul Normal 1.4-6.5 [facility] Comment on above: Performed By: #### C BC #### [facility] [address] [place] [address] Dr. Arianna Hamlin Neutrophils/100 WBC (Bld) 65.7 % Normal 43.0-75.0 [facility] Comment on above: Performed By: #### C BC #### [facility] [address] [address] [address] Arianna Hamlin Platelet mean volume (Bld) [Entitic vol] 10.2 fL Normal 9.5-13.5 [facility] Comment on above: Performed By: #### C BC #### [facility] [address] [address] [address] Arianna Hamlin PLT 243 103/ul Normal 150-450 [facility] Comment on above: Performed By: #### C BC #### [facility] [address] [place] [address] Dr. Arianna Hamlin RBC 4.32 106/ul Normal 4.20-5.40 [facility] Comment on above: Performed By: #### C BC #### [facility] [address] [place] [address] Dr. Arianna Hamlin WBC 7.9 103/ul Normal 4.0-11.0 [facility] Comment on above: Performed By: #### C BC #### [facility] [address] [place] [address] Dr. Arianna Hamlin PROF CHEM 8 (BAS METB)on Anion gap [Moles/Vol] 10.8 mmol/L Normal [facility] Comment on above: Performed By: #### B MP #### [facility] [address] [place] [address] Dr. Arianna Hamlin Calcium [Mass/Vol] 9.0 mg/dL Normal 8.5-10.1 [facility] Comment on above: Performed By: #### B MP #### [facility] [address] [place] [address] Dr. Arianna Hamlin Chloride [Moles/Vol] 101 mmol/L Normal 98-107 [facility] Comment on above: Performed By: #### B MP #### [facility] [address] [place] [address] Dr. Arianna Hamlin CO2 [Moles/Vol] 30.8 mmol/L Normal 21.0-32.0 [facility] Comment on above: Performed By: #### B MP #### [facility] [address] [place] [address] Dr. Arianna Hamlin Creatinine [Mass/Vol] 0.79 mg/dL Normal 0.55-1.02 [facility] Comment on above: Performed By: #### B MP #### [facility] [address] [place] [address] Dr. Arianna Hamlin EGFR-AF URUGUAYAN >60 Normal >=60 [facility] Comment on above: Performed By: #### B MP #### [facility] [address] [place] [address] Dr. Arianna Hamlin EGFR-NON AF URUGUAYAN >60 Normal >=60 [facility] Comment on above: Performed By: #### B MP #### [facility] [address] [address] [address] Arianna Hamlin Glucose [Mass/Vol] 110 mg/dL Critically high 74-106 [facility] Comment on above: Performed By: #### B MP #### [facility] [address] [address] [address] Arianna Hamlin Potassium [Moles/Vol] 3.6 mmol/L Normal 3.5-5.1 [facility] Comment on above: Performed By: #### B MP #### [facility] [address] [address] [address] Arianna Hamlin Sodium [Moles/Vol] 139 mmol/L Normal 136-145 [facility] Comment on above: Performed By: #### B MP #### [facility] [address] [address] [address] Arianna Hamlin Urea nitrogen [Mass/Vol] 8.0 mg/dL Normal 7.0-18.0 [facility] Comment on above: Performed By: #### B MP #### [facility] [address] [address] [address] Arianna Hamlin Urea nitrogen/Creatinine [Mass ratio] 10.1 mg/mg Normal [facility] Comment on above: Performed By: #### B MP #### [facility] [address] [address] [address] Arianna Hamlin UA RANDOMon 08-15-2022 Bilirubin Ql (U) Negative Normal NEGATIVE [facility] Comment on above: Performed By: #### C BC #### [facility] [address] [address] [address] Arianna Hamlin Clarity (U) CLEAR Normal CLEAR [facility] Comment on above: Performed By: #### C BC #### [facility] [address] [address] [address] Arianna Hamlin Glucose Ql (U) Negative Normal NEGATIVE [facility] Comment on above: Performed By: #### C BC #### [facility] [address] [place] [address] Dr. Arianna Hamlin Hemoglobin Ql (U) Negative Normal NEGATIVE [facility] Comment on above: Performed By: #### C BC #### [facility] [address] [address] [address] Arianna Hamlin Ketones Ql (U) Negative Normal NEGATIVE [facility] Comment on above: Performed By: #### C BC #### [facility] [address] [address] [address] Arianna Hamlin LEUKOCYTES MODERATE Abnormal NEGATIVE [facility] Comment on above: Performed By: #### C BC #### [facility] [address] [place] [address] Dr. Arianna Hamlin Nitrite Ql (U) Negative Normal NEGATIVE [facility] Comment on above: Performed By: #### C BC #### [facility] [address] [place] [address] Dr. Arianna Hamlin pH (U) 7.0 [pH] Normal 5-9 [facility] Comment on above: Performed By: #### C BC #### [facility] [address] [place] [address] Dr. Arianna Hamlin SPEC GRAVITY 1.010 Normal 1.005-<=1.025 [facility] Comment on above: Performed By: #### C BC #### [facility] [address] [place] [address] Dr. Arianna Hamlin UA PROTEIN Negative Normal NEGATIVE/ TRACE [facility] Comment on above: Performed By: #### C BC #### [facility] [address] [place] [address] Dr. Arianna Hamlin Urobilinogen Qn (U) 0.2 {Ayden'U}/dL Normal 0.2 - 1. 0 [facility] Comment on above: Performed By: #### C BC #### [facility] [address] [place] [address] Dr. Arianna Hamlin XR FOOT RT 2Von [...] BARBARA HERNANDEZ Date: 2022-08-15 08:59 Normal [facility] POINT OF CARE GLUCOSEon 07-30 Glucose [Mass/Vol] 138 mg/dL Critically high 74-106 [facility] Comment on above: Performed By: #### P OCGLUC #### [facility] [address] [place] [address] Dr. Arianna Hamlin Glucose [Mass/Vol] 94 mg/dL Normal 74-106 [facility] Comment on above: Performed By: #### P OCGLUC #### [facility] [address] [place] [address] Dr. Arianna Hamlin CBC AUTO DIFFon 08-08-2022 BASO # 0.0 103/ul Normal 0.0-0.1 [facility] Comment on above: Performed By: #### C BC #### [facility] [address] [place] [address] Dr. Arianna Hamlin Basophils/100 WBC (Bld) 0.7 % Normal 0.2-2.0 [facility] Comment on above: Performed By: #### C BC #### [facility] [address] [place] [address] Dr. Arianna Hamlin EO # 0.1 103/ul Normal 0.0-0.7 [facility] Comment on above: Performed By: #### C BC #### [facility] [address] [place] [address] Dr. Arianna Hamlin Eosinophils/100 WBC (Bld) 1.3 % Normal 0.9-7.0 [facility] Comment on above: Performed By: #### C BC #### [facility] [address] [place] [address] Dr. Arianna Hamlin Erythrocyte distribution width (RBC) [Ratio] 12.3 % Normal 11.0-15.0 [facility] Comment on above: Performed By: #### C BC #### [facility] [address] [place] [address] Dr. Arianna Hamlin Hematocrit (Bld) [Volume fraction] 38.4 % Normal 36.0-48.0 [facility] Comment on above: Performed By: #### C BC #### [facility] [address] [place] [address] Dr. Arianna Hamlin Hemoglobin (Bld) [Mass/Vol] 13.2 g/dL Normal 12.0-16.0 [facility] Comment on above: Performed By: #### C BC #### [facility] [address] [place] [address] Dr. Arianna Hamlin IG # 0.01 10e3/ul Normal 0.00-0.03 [facility] Comment on above: Performed By: #### C BC #### [facility] [address] [place] [address] Dr. Arianna Hamlin IG % 0.2 % Normal 0.0-0.5 [facility] Comment on above: Performed By: #### C BC #### [facility] [address] [place] [address] Dr. Arianna Hamlin LYMPH # 1.8 103/ul Normal 1.2-3.8 [facility] Comment on above: Performed By: #### C BC #### [facility] [address] [place] [address] Dr. Arianna Hamlin Lymphocytes/100 WBC (Bld) 30.8 % Normal 20.5-60.0 [facility] Comment on above: Performed By: #### C BC #### [facility] [address] [place] [address] Dr. Arianna Hamlin MANUAL DIFF REQ NO Normal [facility] Comment on above: Performed By: #### C BC #### [facility] [address] [place] [address] Dr. Arianna Hamlin MCH (RBC) [Entitic mass] 27.7 pg Normal 26.7-34.0 [facility] Comment on above: Performed By: #### C BC #### [facility] [address] [address] [address] Arianna Hamlin MCHC (RBC) [Mass/Vol] 34.4 g/dL Normal 29.9-35.2 [facility] Comment on above: Performed By: #### C BC #### [facility] [address] [address] [address] Arianna Hamlin MCV (RBC) [Entitic vol] 80.7 fL Critically low 81.0-99.0 [facility] Comment on above: Performed By: #### C BC #### [facility] [address] [place] [address] Dr. Arianna Hamlin MONO # 0.4 103/ul Normal 0.3-0.8 [facility] Comment on above: Performed By: #### C BC #### [facility] [address] [place] [address] Dr. Arianna Hamlin Monocytes/100 WBC (Bld) 7.1 % Normal 1.7-12.0 [facility] Comment on above: Performed By: #### C BC #### [facility] [address] [place] [address] Dr. Arianna Hamlin NEUT # 3.6 103/ul Normal 1.4-6.5 [facility] Comment on above: Performed By: #### C BC #### [facility] [address] [place] [address] Dr. Arianna Hamlin Neutrophils/100 WBC (Bld) 59.9 % Normal 43.0-75.0 [facility] Comment on above: Performed By: #### C BC #### [facility] [address] [place] [address] Dr. Arianna Hamlin Platelet mean volume (Bld) [Entitic vol] 9.5 fL Normal 9.5-13.5 [facility] Comment on above: Performed By: #### C BC #### [facility] [address] [place] [address] Dr. Arianna Hamlin PLT 248 103/ul Normal 150-450 [facility] Comment on above: Performed By: #### C BC #### [facility] [address] [place] [address] Dr. Arianna Hamlin RBC 4.76 106/ul Normal 4.20-5.40 [facility] Comment on above: Performed By: #### C BC #### [facility] [address] [place] [address] Dr. Arianna Hamlin WBC 5.9 103/ul Normal 4.0-11.0 [facility] Comment on above: Performed By: #### C BC #### [facility] [address] [place] [address] Dr. Arianna Hamlin Covid-19 PCR (CVDTB)on 07-30 SARS-CoV-2 (COVID-19) RNA RICHARD+probe Ql (Unsp spec) Not detected Normal NOT DETECTED [facility] Comment on above: Result Comment: This test is not yet approved or cleared by the [place] FDA. When there are no FDA-approved or cleared tests available, and other criteria are met, FDA can make tests available under an emergency access mechanism called an Emergency Use Authorization (EUA). The EUA for this test is supported by the Financial Sales Representative of Health and Human Service's (HHS's) declaration [...] SARS-CoV-2. Performed By: #### C VDTBH #### [facility] [address] [place] [address] Dr. Arianna Hamlin PROF CHEM 8 (BAS METB)on Anion gap [Moles/Vol] 10.1 mmol/L Normal [facility] Comment on above: Performed By: #### B MP #### [facility] [address] [place] [address] Dr. Arianna Hamlin Calcium [Mass/Vol] 9.2 mg/dL Normal 8.5-10.1 [facility] Comment on above: Performed By: #### B MP #### [facility] [address] [address] [address] Arianna Hamlin Chloride [Moles/Vol] 103 mmol/L Normal 98-107 [facility] Comment on above: Performed By: #### B MP #### [facility] [address] [address] [address] Arianna Hamlin CO2 [Moles/Vol] 30.7 mmol/L Normal 21.0-32.0 [facility] Comment on above: Performed By: #### B MP #### [facility] [address] [place] [address] Dr. Arianna Hamlin Creatinine [Mass/Vol] 0.86 mg/dL Normal 0.55-1.02 [facility] Comment on above: Performed By: #### B MP #### [facility] [address] [address] [address] Arianna Hamlin EGFR-AF URUGUAYAN >60 Normal >=60 [facility] Comment on above: Performed By: #### B MP #### [facility] [address] [place] [address] Dr. Arianna Hamlin EGFR-NON AF URUGUAYAN >60 Normal >=60 [facility] Comment on above: Performed By: #### B MP #### [facility] [address] [place] [address] Dr. Arianna Hamlin Glucose [Mass/Vol] 77 mg/dL Normal 74-106 [facility] Comment on above: Performed By: #### B MP #### [facility] [address] [address] [address] Arianna Hamlin Potassium [Moles/Vol] 3.8 mmol/L Normal 3.5-5.1 [facility] Comment on above: Performed By: #### B MP #### [facility] [address] [place] [address] Dr. Arianna Hamlin Sodium [Moles/Vol] 140 mmol/L Normal 136-145 [facility] Comment on above: Performed By: #### B MP #### [facility] [address] [address] [address] Arianna Hamlin Urea nitrogen [Mass/Vol] 8.0 mg/dL Normal 7.0-18.0 [facility] Comment on above: Performed By: #### B MP #### [facility] [address] [id number] Arianna Hamlin Urea nitrogen/Creatinine [Mass ratio] 9.3 mg/mg Normal [facility] Comment on above: Performed By: #### B MP #### [facility] [address] [address] [address] Arianna Hamlin Covid-19 PCR ([facility])on SARS-CoV-2 (COVID-19) RNA RICHARD+probe Ql (Unsp spec) Not detected Normal NOT DETECTED [facility] Comment on above: Result Comment: This test is not yet approved or cleared by the [place] FDA. When there are no FDA-approved or cleared tests available, and other criteria are met, FDA can make tests available under an emergency access mechanism called an Emergency Use Authorization (EUA). The EUA for this test is supported by the [place] of Health and Human Service's (HHS's) declaration [...] SARS-CoV-2. Performed By: #### B MP #### [facility] [address] [place] [address] Dr. Arianna Hamlin MRI ANKLE RT WO [...] DALTON ALVARENGA Date: 2022-06-24 12:09 Normal [facility] H PYLORI TISSUEon 05-17-2022 H PYL TISSUE, UREASE Negative Normal NEGATIVE [facility] Comment on above: Performed By: #### B MP #### [facility] [address] [place], [place] [address] Dr. Arianna Hamlin Covid-19 PCR ([facility])on 04-29 SARS-CoV-2 (COVID-19) RNA RICHARD+probe Ql (Unsp spec) Not detected Normal NOT DETECTED [facility] Comment on above: Result Comment: This test is not yet approved or cleared by the [place] FDA. When there are no FDA-approved or cleared tests available, and other criteria are met, FDA can make tests available under an emergency access mechanism called an Emergency Use Authorization (EUA). The EUA for this test is supported by the Financial Sales Representative of Health and Human Service's (HHS's) declaration [...] SARS-CoV-2. Performed By: #### C VDTBH #### [facility] [address] [place], [place] [address] Dr. Arianna Hamlin FLORINA by IFAon 05-11-2022 Antinuclear Antibodies, IFA Negative Normal [facility] Comment on above: Result Comment: Nega tive <1:80 Borderline 1:80 Positive >1:80 ICAP nomenclature: AC-0 For more information about Hep-2 cell patterns use ANApatterns.org, the official website for the International Consensus on Antinuclear Antibody ([place]OR[place]) Patterns (ICAP). Performed By: #### B MP #### [facility] [address] [place] [address] Dr. Arianna Hamlin CULTURE URINEon 05-11-2022 CULTURE [...] Trimethoprim/Sulfameth oxazole <=20 S C Normal [facility] Comment on above: Performed By: #### C BC #### [facility] [address] [place] [address] Dr. Arianna Hamlin ANTISTREPTOLYSIN O AB (ASO)o n 05-10-2022 Antistreptolysin O Ab 45.8 IU/mL Normal 0.0-200.0 [facility] Comment on above: Performed By: #### C BC #### [facility] [address] [place] [address] Dr. Arianna Hamlin RHEUMATOID FACTORon 05-10-20 RA Latex Turbid. <10.0 Normal <14.0 [facility] Comment on above: Performed By: #### B MP #### [facility] [address] [place] [address] Dr. Arianna Hamlin CRPon 05-08-2022 CRP [Mass/Vol] mg/L Normal <=1.0 [facility] Comment on above: Performed By: #### C BC #### [facility] [address] [place] [address] Dr. Arianna Hamlin UA RANDOM W/MICROSCOPICon BACTERIA LARGE Abnormal NONE SEEN [facility] Comment on above: Performed By: #### U AMIC #### [facility] [address] [address] [address] Arianna Hamlin Bilirubin Ql (U) Negative Normal NEGATIVE [facility] Comment on above: Performed By: #### U AMIC #### [facility] [address] [address] [address] Arianna Hamlin CAST NONE SEEN Normal NONE SEEN [facility] Comment on above: Performed By: #### U AMIC #### [facility] [address] [address] [address] Arianna Hamlin Clarity (U) CLEAR Normal CLEAR [facility] Comment on above: Performed By: #### U AMIC #### [facility] [address] [place] [address] Dr. Arianna Hamlin Color (U) LT. YELLOW Normal YELLOW [facility] Comment on above: Performed By: #### U AMIC #### [facility] [address] [address] [address] Arianna Hamlin Crystals LM Nom (Urine sed) NONE SEEN Normal NONE SEEN [facility] Comment on above: Performed By: #### U AMIC #### [facility] [address] [place] [address] Dr. Arianna Hamlin Epithelial cells LM Ql (Urine sed) FEW Abnormal NONE SEEN /RARE [facility] Comment on above: Performed By: #### U AMIC #### [facility] [address] [address] [address] Arianna Hamlin Glucose Ql (U) Negative Normal NEGATIVE [facility] Comment on above: Performed By: #### U AMIC #### [facility] [address] [address] [address] Arianna Hamlin Hemoglobin Ql (U) SMALL Abnormal NEGATIVE [facility] Comment on above: Performed By: #### U AMIC #### [facility] [address] [place] [address] Dr. Arianna Hamlin Ketones Ql (U) TRACE Abnormal NEGATIVE [facility] Comment on above: Performed By: #### U AMIC #### [facility] [address] [address] [address] Arianna Hamlin LEUKOCYTES MODERATE Abnormal NEGATIVE [facility] Comment on above: Performed By: #### U AMIC #### [facility] [address] [address] [address] Arianna Hamlin MUCOUS NONE SEEN Normal NONE SEEN [facility] Comment on above: Performed By: #### U AMIC #### [facility] [address] [address] [address] Arianna Hamlin Nitrite Ql (U) Positive Abnormal NEGATIVE [facility] Comment on above: Performed By: #### U AMIC #### [facility] [address] [address] [address] Arianna Hamlin pH (U) 6.0 [pH] Normal 5-9 [facility] Comment on above: Performed By: #### U AMIC #### [facility] [address] [place] [address] Dr. Arianna Hamlin RBC 2-5 Abnormal 0-2 [facility] Comment on above: Performed By: #### U AMIC #### [facility] [address] [address] [address] Arianna Hamlin SPEC GRAVITY >=1.030 Abnormal 1.005-<=1.025 [facility] Comment on above: Performed By: #### U AMIC #### [facility] [address] [address] [address] Arianna Hamlin UA PROTEIN Negative Normal NEGATIVE/ TRACE [facility] Comment on above: Performed By: #### U AMIC #### [facility] [address] [place] [address] Dr. Arianna Hamlin Urobilinogen Qn (U) 0.2 {Ayden'U}/dL Normal 0.2 - 1. 0 [facility] Comment on above: Performed By: #### U AMIC #### [facility] [address] [place] [address] Dr. Arianna Hamlin WBC 20-50 Abnormal NONE SEEN [facility] Comment on above: Performed By: #### U AMIC #### [facility] [address] [place] [address] Dr. Arianna Hamlin URIC ACID SERUMon 05-08-2022 Urate [Mass/Vol] 4.1 mg/dL Normal 2.6-6.0 [facility] Comment on above: Performed By: #### U BETY, CRP #### [facility] [address] [place] [address] Dr. Arianna Hamlin CBC AUTO DIFFon 01-24-2022 BASO # 0.1 103/ul Normal 0.0-0.1 [facility] Comment on above: Performed By: #### C BC #### [facility] [address] [place] [address] Dr. Arianna Hamlin Basophils/100 WBC (Bld) 0.9 % Normal 0.2-2.0 [facility] Comment on above: Performed By: #### C BC #### [facility] [address] [place] [address] Dr. Arianna Hamlin EO # 0.1 103/ul Normal 0.0-0.7 [facility] Comment on above: Performed By: #### C BC #### [facility] [address] [place] [address] Dr. Arianna Hamlin Eosinophils/100 WBC (Bld) 2.2 % Normal 0.9-7.0 [facility] Comment on above: Performed By: #### C BC #### [facility] [address] [place] [address] Dr. Arianna Hamlin Erythrocyte distribution width (RBC) [Ratio] 12.7 % Normal 11.0-15.0 [facility] Comment on above: Performed By: #### C BC #### [facility] [address] [place] [address] Dr. Arianna Hamlin Hematocrit (Bld) [Volume fraction] 42.6 % Normal 36.0-48.0 [facility] Comment on above: Performed By: #### C BC #### [facility] [address] [place] [address] Dr. Arianna Hamlin Hemoglobin (Bld) [Mass/Vol] 14.2 g/dL Normal 12.0-16.0 [facility] Comment on above: Performed By: #### C BC #### [facility] [address] [place] [address] Dr. Arianna Hamlin IG # 0.02 10e3/ul Normal 0.00-0.03 [facility] Comment on above: Performed By: #### C BC #### [facility] [address] [place] [address] Dr. Arianna Hamlin IG % 0.4 % Normal 0.0-0.5 [facility] Comment on above: Performed By: #### C BC #### [facility] [address] [place] [address] Dr. Arianna Hamlin LYMPH # 2.0 103/ul Normal 1.2-3.8 [facility] Comment on above: Performed By: #### C BC #### [facility] [address] [place] [address] Dr. Arianna Hamlin Lymphocytes/100 WBC (Bld) 38.1 % Normal 20.5-60.0 [facility] Comment on above: Performed By: #### C BC #### [facility] [address] [place] [address] Dr. Arianna Hamlin MANUAL DIFF REQ NO Normal [facility] Comment on above: Performed By: #### C BC #### [facility] [address] [place] [address] Dr. Arianna Hamlin MCH (RBC) [Entitic mass] 28.1 pg Normal 26.7-34.0 [facility] Comment on above: Performed By: #### C BC #### [facility] [address] [place] [address] Dr. Arianna Hamlin MCHC (RBC) [Mass/Vol] 33.3 g/dL Normal 29.9-35.2 [facility] Comment on above: Performed By: #### C BC #### [facility] [address] [place] [address] Dr. Arianna Hamlin MCV (RBC) [Entitic vol] 84.4 fL Normal 81.0-99.0 [facility] Comment on above: Performed By: #### C BC #### [facility] [address] [place] [address] Dr. Arianna Hamlin MONO # 0.4 103/ul Normal 0.3-0.8 [facility] Comment on above: Performed By: #### C BC #### [facility] [address] [place] [address] Dr. Arianna Hamlin Monocytes/100 WBC (Bld) 7.3 % Normal 1.7-12.0 [facility] Comment on above: Performed By: #### C BC #### [facility] [address] [place] [address] Dr. Arianna Hamlin NEUT # 2.7 103/ul Normal 1.4-6.5 [facility] Comment on above: Performed By: #### C BC #### [facility] [address] [place] [address] Dr. Arianna Hamlin Neutrophils/100 WBC (Bld) 51.1 % Normal 43.0-75.0 [facility] Comment on above: Performed By: #### C BC #### [facility] [address] [place] [address] Dr. Arianna Hamlin Platelet mean volume (Bld) [Entitic vol] 9.8 fL Normal 9.5-13.5 [facility] Comment on above: Performed By: #### C BC #### [facility] [address] [place] [address] Dr. Arianna Hamlin PLT 276 103/ul Normal 150-450 [facility] Comment on above: Performed By: #### C BC #### [facility] [address] [place] [address] Dr. Arianna Hamlin RBC 5.05 106/ul Normal 4.20-5.40 [facility] Comment on above: Performed By: #### C BC #### [facility] [address] [place] [address] Dr. Arianna Hamlin WBC 5.4 103/ul Normal 4.0-11.0 [facility] Comment on above: Performed By: #### C BC #### [facility] [address] [address] [address] Arianna Hamlin PROF 14(COMP METB)on 022 Albumin [Mass/Vol] 4.2 g/dL Normal 3.4-5.0 [facility] Comment on above: Performed By: #### B MP #### [facility] [address] [place] [address] Dr. Arianna Hamlin Albumin/Globulin [Mass ratio] 1.3 {ratio} Normal [facility] Comment on above: Performed By: #### B MP #### [facility] [address] [place] [address] Dr. Arianna Hamlin ALP [Catalytic activity/Vol] 92 U/L Normal 46-116 [facility] Comment on above: Performed By: #### B MP #### [facility] [address] [place] [address] Dr. Arianna Hamlin ALT [Catalytic activity/Vol] 25 U/L Normal 14-59 [facility] Comment on above: Performed By: #### B MP #### [facility] [address] [place] [address] Dr. Arianna Hamlin Anion gap [Moles/Vol] 10.4 mmol/L Normal [facility] Comment on above: Performed By: #### B MP #### [facility] [address] [place] [address] Dr. Arianna Hamlin AST [Catalytic activity/Vol] 20 U/L Normal 15-37 [facility] Comment on above: Performed By: #### B MP #### [facility] [address] [place] [address] Dr. Arianna Hamlin Bilirubin [Mass/Vol] 0.2 mg/dL Normal 0.2-1.0 [facility] Comment on above: Performed By: #### B MP #### [facility] [address] [place] [address] Dr. Arianna Hamlin Calcium [Mass/Vol] 9.0 mg/dL Normal 8.5-10.1 [facility] Comment on above: Performed By: #### B MP #### [facility] [address] [place] [address] Dr. Arianna Hamlin Chloride [Moles/Vol] 103 mmol/L Normal 98-107 [facility] Comment on above: Performed By: #### B MP #### [facility] [address] [address] [address] Arianna Hamlin CO2 [Moles/Vol] 29.7 mmol/L Normal 21.0-32.0 [facility] Comment on above: Performed By: #### B MP #### [facility] [address] [address] [address] rAianna Hamlin Creatinine [Mass/Vol] 0.87 mg/dL Normal 0.55-1.02 [facility] Comment on above: Performed By: #### B MP #### [facility] [address] [place] [address] Dr. Arianna Hamlin EGFR-AF URUGUAYAN >60 Normal >=60 [facility] Comment on above: Performed By: #### B MP #### [facility] [address] [address] [address] Arianna Hamlin EGFR-NON AF URUGUAYAN >60 Normal >=60 [facility] Comment on above: Performed By: #### B MP #### [facility] [address] [place] [address] Dr. Arianna Hamlin Globulin (S) [Mass/Vol] 3.3 g/dL Normal [facility] Comment on above: Performed By: #### B MP #### [facility] [address] [address] [address] Arianna Hamlin Glucose [Mass/Vol] 99 mg/dL Normal 74-106 [facility] Comment on above: Performed By: #### B MP #### [facility] [address] [address] [address] Arianna Hamlin Potassium [Moles/Vol] 4.1 mmol/L Normal 3.5-5.1 [facility] Comment on above: Performed By: #### B MP #### [facility] [address] [place] [address] Dr. Arianna Hamlin Protein [Mass/Vol] 7.5 g/dL Normal 6.4-8.2 [facility] Comment on above: Performed By: #### B MP #### [facility] [address] [address] [address] Arianna Hamlin Sodium [Moles/Vol] 139 mmol/L Normal 136-145 [facility] Comment on above: Performed By: #### B MP #### [facility] [address] [address] [address] Arianna Hamlin Urea nitrogen [Mass/Vol] 11.0 mg/dL Normal 7.0-18.0 [facility] Comment on above: Performed By: #### B MP #### [facility] [address] [address] [address] Arianna Hamlin Urea nitrogen/Creatinine [Mass ratio] 12.6 mg/mg Normal [facility] Comment on above: Performed By: #### B MP #### [facility] [address] [address] [address] Arianna Hamlin Provider Letteron 09-06-2021 Provider Letter September 06, 2021 SIMIN CARO [address] [place] [phone] SIMIN CARO 1970 Dear Simin_ , We have been trying to reach you with no success. It is important that you return our call regarding your referral from Melinda Rodriguez upon receiving this letter. Also, at the time of your call, please provide us with your correct phone number. . Thank you for your prompt attention to this matter. Sincerely, General Surgery [phone] Normal [facility] Physician Referralon 022 Physician Referral [phone] [id number] Normal [facility] Vital Signs Date Time Vital Sign Value Performing Clinician Clarence cannon 02-03-2022 12:15-0400 Body height 160.02 cm Rai Alvarenga Other [facility] 02-03-2022 12:15-0400 Body mass index (BMI) [Ratio] 36.13 kg/m2 Rai Alvarenga Other [facility] 02-03-2022 12:15-0400 Body weight 92.53 kg Rai Alvarenga Other [facility] 01-27-2022 09:00-0400 Body height 160.02 cm Rai Colette Other [facility] 01-27-2022 09:00-0400 Body mass index (BMI) [Ratio] 36.13 kg/m2 Rai Colette Other [facility] 01-27-2022 09:00-0400 Body weight 92.53 kg Rai Colette Other [facility] Other 10-31-2021 16:30-0400 Body height 160.02 cm Rai Alvarenga Other [facility] Other 10-31-2021 16:30-0400 Body mass index (BMI) [Ratio] 37.02 kg/m2 Rai Colette Other [facility] Other 10-31-2021 16:30-0400 Body weight 94.8 kg Rai Alvarenga Other [facility] Other Encounters Encounter Date Encounter Type Care Provider Facility Start: 01-07-2024 ambulatory Bryce Duran acility:[facility] Start: 12-19-2022 End: 12-20-2022 ambulatory KEL MONTGOMERY Facility:[facility] Start: 11-14-2022 ambulatory KEL MONTGOMERY Facility: [facility] Start: 11-08-2022 End: 11-09-2022 ambulatory NONE LISTED REQUEST Facility:[facility] Start: 10-18-2022 End: 10-19-2022 ambulatory NONE LISTED REQUEST Facility:[facility] Start: 09-28-2022 End: 09-29-2022 ambulatory ADRIANA JUDY Facility:[facility] Start: 09-23-2022 End: 09-24-[address] NONE LISTED REQUEST Facility:[facility] Start: 09-07-2022 End: 09-08-2022 ambulatory ADRIANA JUDY Facility:[facility] Start: 08-14-2022 End: 08-15-[address] NONE LISTED REQUEST Facility:[facility] Start: 08-10-2022 Encounter for preprocedural laboratory examination LOS VENTURA [facility] Start: 08-10-2022 ambulatory KEL VALENTINA Facility: [...] 02-03-2022 End: 02-03-2022 ambulatory Rai Alvarenga Other [facility] Start: 02-03-2022 Postop follow up vis it related to original px Rai Alvarenga [facility] Start: 01-27-2022 End: 01-27-2022 ambulatory Rai Alvarenga Other [facility] Other Start: 01-27-2022 Office outpatient vi sit 15 minutes Rai Alvarenga [facility] Start: 01-24-2022 End: 01-25-2022 ambulatory RAI ALVARENGA Facility:[facility] Start: 10-31-2021 End: 10-31-2021 ambulatory Rai Alvarenga Other [facility] Start: 10-31-2021 Office outpatient ne w 45 minutes Rai Alvarenga [facility] Immunizations Immunization Date Immunization Notes Care Provider Fa chaz 05-16-2021 influenza, injectabl e, quadrivalent, preservative free Rai Colette Other [facility] 01-01-2021 COVID-19 Vaccine Yari - Documentation Purposes Only Rai Colette Other [facility] Other Payers Date Payer Category Payer Unknown [id number] .. [id number] 1970 Unknown [id number] ..[id number] 1970 Unknown [id number] .. 0.1.132418.3.579.2.593 1970 Unknown [id number] ..[id number] 0.1.318226.3.579.2.593 1970 Unknown [id number] .16.84 0.1.568000.3.579.2.593 1970 Unknown [id number] ..[id number] 0.1.675030.3.579.2.593 1970 Unknown [id number] ..[id number] 0.1.237677.3.579.2.593 1970 Unknown [id number] 2.16.84 0.1.972040.3.579.2.593 1970 Unknown [id number] 2.16.84 0.1.121041.3.579.2.593 1970 Unknown [id number] 2.16.84 0.1.861173.3.579.2.593 1970 Unknown [id number] 2.16.84 0.1.101927.3.579.2.593 1970 Unknown [id number] 2.16.84 0.1.289928.3.579.2.593 1970 Unknown [id number] 2.16.84 0.1.838399.3.579.2.593 1970 Unknown [id number] 2.16.84 0.1.321957.3.579.2.593 1970 Unknown [id number] 2.16.84 0.1.431494.3.579.2.593 1970 Unknown [id number] 2.16.84 0.1.136434.3.579.2.593 1970 Unknown [id number] 2.16.84 0.1.325379.3.579.2.593 1970 Unknown [id number] 2.16.84 0.1.806031.3.579.2.593 1970 Unknown [id number] 2.16.84 0.1.280633.3.579.2.593 1970 Unknown [id number] 2.16.84 0.1.134802.3.579.2.593 1970 Unknown [id number] 2.16.84 0.1.781099.3.579.2.593 1970 Unknown [id number] 2.16.84 0.1.528460.3.579.2.593 1959 [employer] Cross Blue Shield [id number] [id number] 1959 Self-pay Unknown [id number] 2.16.8 40.1.649907.3.579.2.531 Social History Date Type Detail Facility Sex Assigned At [facility] Other Clinical Notes 10-31-2021 to 12-19-2022 Note [...] authenticated by: LARISSA CHOI Date: 2022-12-19 11:40 [facility] 10-19-2022 Note PROCEDURE: XR FOOT R T [...] by: TERI KAY Date: 2022-10-19 08:47 [facility] 09-28-2022 Note PROCEDURE: XR FOOT R T [...] authenticated by: BARBARA HERNANDEZ Date: 2022-09-28 16:30 [facility] 09-08-2022 Note PROCEDURE: XR FOOT R T [...] authenticated by: TERI KAY Date: 2022-09-08 07:03 [facility] 08-15-2022 Note PROCEDURE: XR FOOT R [...] authenticated by: BARBARA HERNANDEZ Date: 2022-08-15 08:58 [facility] 08-15-2022 Note PROCEDURE: XR FOOT R [...] authenticated by: BARBARA HERNANDEZ Date: 2022-08-15 08:58 [facility] 06-15-2022 Note PROCEDURE: XR FOOT R T MIN 3 VIEWS COMPARISON: 09/08/2021 HISTORY: Pain in right foot FINDINGS: BONES:No acute fracture or dislocation. Stable [id number]-[id number]-[id number] degenerative change with joint space narrowing marginal osteophyte formation most significant in the midfoot SOFT TISSUES:Negative. No visible soft tissue swelling. EFFUSION:None visible. OTHER: Negative. IMPRESSION: Stable degenerative changes Electronically authenticated by: BARBARA HERNANDEZ Date: 2022-06-15 08:48 [facility] 02-03-2022 Evaluation note Encounter Date Diagnosis Assessment [...] - M65.331) Currently resolved. Continue to monitor [facility] 07-01-2022 Evaluation note* Encounter Date Diagnosis [...] as documented in the electronic medical record. 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 I have [...] as documented in the electronic medical record. [facility] Other History general Narrative - Reported* Type Description Date Medical History Hypertension Medical History chronic depression Medical History hearing loss Surgical History hysterectomy-partial 2016 [facility] Other Summary Purpose Family History No Family History Records FoundNo Family History Records FoundNo Family History Records Found Advance Directives No Advanced Directives Records FoundNo Advanced Directives Records FoundNo Advanced Directives Records Found Additional Source Comments REASON FOR VISIT (unrecogniz ed section and content) Bilateral Carpal TunnelRight Hip PainRecheck Left Wrist INFORMATION SOURCE (unrecogn ized section and content) DATE CREATED AUTHOR 02/17/2022 [facility] [employer] [facility] DATE CREATED AUTHOR AUTHOR'S ORGANIZ ATION 01/05/2023 [facility] DATE CREATED AUTHOR AUTHOR'S ORGANIZ ATION 03/28/2024 [facility] FOR RECORDS PERTAINING TO PATIENTS WHO ARE [...] BE BASED ON THE PRIMARY CLINICAL RECORDS. [employer] [facility] provides no warranty or guarantee of the accuracy or completeness of information in this document.
== END 2024-04-07 11:17 | disposition home or self-care (01) ==
LOC: EC 11:16
PROVIDERS: PCP Nurse Practitioner Family; Visit Provider Orthopaedic Surgery
DX: M25.562 Pain in left knee (principal); M25.462 Effusion, left knee
CPT/HCPCS: 73564

== ENCOUNTER 2024-05-28 08:45 | Outpatient (OUT) | payer OTHER, SELFPAY ==
--- NOTE | 2024-05-28 | XR_ITS ---
The [address] [address] Patient Name: LAWRENCE LIZAMA MRN: [id number] date: 1970 Sex: F Assigned Patient Location: Current Patient Location: Accession/Order Number: [id number] Exam Date: 05/28/2024 08:50 Report Date: 05/30/2024 13:42 At the request of: LOS VENTURA Procedure: XR foot RT min 3V PROCEDURE: XR foot RT min 3V COMPARISON: 03/11/2024 HISTORY: RIGHT FOOT PAIN FINDINGS: BONES:Stable subtalar fusion with incomplete bony fusion utilizing 2 cannulated screws, lucency surrounding the screws suggest movement. Stable fusion of the navicular and intermediate cuneiform with a dorsal staple. Moderate degenerative changes of the midfoot and hindfoot SOFT TISSUES:Negative. No visible soft tissue swelling. EFFUSION:Large joint effusion OTHER: Negative. XR/XR foot RT min 3V IMPRESSION: Stable degenerative and postsurgical changes Electronically authenticated by: BARBARA HERNANDEZ Date: 05/30/2024 13:42
--- OUTSIDE RECORDS SUMMARY | 2024-05-28 09:00 | XMS_ITS | CCD ---
Author Organization [facility] CliniSynh Care Team Providers Care Cataloging Assistant Name Role Phone Rai Alvraenga Unavailable KEL MONTGOMERY Primary Care Unavailable LOS [...] Attending Unavailable NEEL WEBBER Consulting Unavailable VALENTINA, KLE Primary Care Unavailable VALENTINA, KEL Admitting Unavailable VALENTINA, KEL Attending Unavailable VALENTINA, KEL Primary Care Unavailable VALENTINA, KEL Admitting Unavailable VALENTINA, KEL Attending Unavailable VALENTINA, KEL Consulting Unavailable RAI ALVARENGA Admitting Unavailable COLETTE, RAI Attending Unavailable VALENTINA, KLE Primary Care Unavailable COLETTE, RAI Consulting Unavailable [...] DR JASIEL Hutchinson Attending Unavaila ble VALENTINA, [facility] Primary Care Unavailable GRILLIS ., [...] Facility (3 sources) Aspirin Drug Allergy Unknown [facility] Other (3 sources) Latex Propensity to adverse reactions Unknown [facility] Other (2 sources) Aspirin Drug Allergy [facility] Repository (2 sources) Latex Drug allergy (disorder) [facility] Repository (1 source) Aspirin Drug Allergy 2 [facility] Repository (1 source) Latex Drug allergy (disorder) 2 [facility] Repository Medications Current Medications Medication Drug Class(es) Dates Sig (Normalized) Sig (Original) amitriptyline hydrochloride 50 mg oral tablet (3 sources) Tricyclic Antidepressant take 1 tablet by mouth every twenty-four hours Amitriptyline HCl 50 MG 1 tablet at bedtime Orally Once a day Active cholecalciferol 1.25 mg oral capsule (2 sources) Vitamin D take 1 capsule by mouth every week Vitamin D3 1.25 MG (73020 UT) 1 capsule Orally once per week [...] by: Elizabeth INFANTE Date: 2022-11-10 23:57 Normal [facility] US KIDNEYS BLADDERon 023 US KIDNEYS BLADDER US KIDNEYS BLADDER EXAM DATE: 09/23/2022 6:34 AM MST COMPARISON: None available. INDICATION: Recurrent UTI. TECHNIQUE: Real-time ultrasound scanning of the kidneys and bladder was performed by the manager trainee. Night Cleaner static images are submitted for review. FINDINGS: [...] Date: 2022-09-23 14:49 Normal [facility] CBC AUTO DIFFon 08-15-2022 BASO # 0.0 103/ul Normal 0.0-0.1 [facility] Comment on above: Performed By: #### C BC #### [facility] [address] [address] [address] Arianna Hamlin Basophils/100 WBC (Bld) 0.3 % Normal 0.2-2.0 [facility] Comment on above: Performed By: #### C BC #### [facility] [address] [address] [address] Arianna Hamlin EO # 0.0 103/ul Normal 0.0-0.7 [facility] Comment on above: Performed By: #### C BC #### [facility] [address] [address] [address] Arianna Hamlin Eosinophils/100 WBC (Bld) 0.1 % Critically low 0.9-7.0 [facility] Comment on above: Performed By: #### C BC #### [facility] [address] [address] [address] Arianna Hamlin Erythrocyte distribution width (RBC) [Ratio] 12.2 % Normal 11.0-15.0 [facility] Comment on above: Performed By: #### C BC #### [facility] [address] [address] [address] Arianna Hamlin Hematocrit (Bld) [Volume fraction] 35.9 % Critically low 36.0-48.0 [facility] Comment on above: Performed By: #### C BC #### [facility] [address] [place] [address] Dr. Arianna Hamlin Hemoglobin (Bld) [Mass/Vol] 12.0 g/dL Normal 12.0-16.0 [facility] Comment on above: Performed By: #### C BC #### [facility] [address] [place] [address] Dr. Arianna Hamlin IG # 0.02 10e3/ul Normal 0.00-0.03 [facility] Comment on above: Performed By: #### C BC #### [facility] [address] [place] [address] Dr. Arianna Hamlin IG % 0.3 % Normal 0.0-0.5 [facility] Comment on above: Performed By: #### C BC #### [facility] [address] [place] [address] Dr. Arianna Hamlin LYMPH # 1.8 103/ul Normal 1.2-3.8 [facility] Comment on above: Performed By: #### C BC #### [facility] [address] [place] [address] Dr. Arianna Hamlin Lymphocytes/100 WBC (Bld) 22.8 % Normal 20.5-60.0 [facility] Comment on above: Performed By: #### C BC #### [facility] [address] [place] [address] Dr. Arianna Hamlin MANUAL DIFF REQ NO Normal [facility] Comment on above: Performed By: #### C BC #### [facility] [address] [place] [address] Dr. Arianna Hamlin MCH (RBC) [Entitic mass] 27.8 pg Normal 26.7-34.0 [facility] Comment on above: Performed By: #### C BC #### [facility] [address] [address] [address] Arianna Hamlin MCHC (RBC) [Mass/Vol] 33.4 g/dL Normal 29.9-35.2 [facility] Comment on above: Performed By: #### C BC #### [facility] [address] [address] [address] Arianna Hamlin MCV (RBC) [Entitic vol] 83.1 fL Normal 81.0-99.0 [facility] Comment on above: Performed By: #### C BC #### [facility] [address] [address] [address] Arianna Hamlin MONO # 0.9 103/ul Critically high 0.3-0.8 [facility] Comment on above: Performed By: #### C BC #### [facility] [address] [place] [address] Dr. Arianna Hamlin Monocytes/100 WBC (Bld) 10.8 % Normal 1.7-12.0 [facility] Comment on above: Performed By: #### C BC #### [facility] [address] [address] [address] Arianna Hamlin NEUT # 5.2 103/ul Normal 1.4-6.5 [facility] Comment on above: Performed By: #### C BC #### [facility] [address] [place] [address] Dr. Arianna Hamlin Neutrophils/100 WBC (Bld) 65.7 % Normal 43.0-75.0 [facility] Comment on above: Performed By: #### C BC #### [facility] [address] [address] [address] Arianna Hamlin Platelet mean volume (Bld) [Entitic vol] 10.2 fL Normal 9.5-13.5 [facility] Comment on above: Performed By: #### C BC #### [facility] [address] [address] [address] Arianna Hamlin PLT 243 103/ul Normal 150-450 [facility] Comment on above: Performed By: #### C BC #### [facility] [address] [place] [address] Dr. Arianna Hamlin RBC 4.32 106/ul Normal 4.20-5.40 [facility] Comment on above: Performed By: #### C BC #### [facility] [address] [place] [address] Dr. Arianna Hamlin WBC 7.9 103/ul Normal 4.0-11.0 [facility] Comment on above: Performed By: #### C BC #### [facility] [address] [place] [address] Dr. Arianna Hamlin PROF CHEM 8 (BAS METB)on Anion gap [Moles/Vol] 10.8 mmol/L Normal [facility] Comment on above: Performed By: #### B MP #### [facility] [address] [place] [address] Dr. Arianna Hamlin Calcium [Mass/Vol] 9.0 mg/dL Normal 8.5-10.1 [facility] Comment on above: Performed By: #### B MP #### [facility] [address] [place] [address] Dr. Arianna Hamlin Chloride [Moles/Vol] 101 mmol/L Normal 98-107 [facility] Comment on above: Performed By: #### B MP #### [facility] [address] [place] [address] Dr. Arianna Hamlin CO2 [Moles/Vol] 30.8 mmol/L Normal 21.0-32.0 [facility] Comment on above: Performed By: #### B MP #### [facility] [address] [place] [address] Dr. Arianna Hamlin Creatinine [Mass/Vol] 0.79 mg/dL Normal 0.55-1.02 [facility] Comment on above: Performed By: #### B MP #### [facility] [address] [place] [address] Dr. Arianna Hamlin EGFR-AF NAMIBIAN >60 Normal >=60 [facility] Comment on above: Performed By: #### B MP #### [facility] [address] [place] [address] Dr. Arianna Hamlin EGFR-NON AF NAMIBIAN >60 Normal >=60 [facility] Comment on above: Performed By: #### B MP #### [facility] [address] [address] [address] Arianna Hamlin Glucose [Mass/Vol] 110 mg/dL Critically high 74-[address] [facility] Comment on above: Performed By: #### B MP #### [facility] [address] [address] [address] Arianna Hamlin Potassium [Moles/Vol] 3.6 mmol/L Normal 3.5-5.1 [facility] Comment on above: Performed By: #### B MP #### [facility] [address] [address] [address] Arianna Hamlin Sodium [Moles/Vol] 139 mmol/L Normal 136-145 [facility] Comment on above: Performed By: #### B MP #### [facility] [address] [address] [address] Arianna Hamlin Urea nitrogen [Mass/Vol] 8.0 mg/dL Normal 7.0-18.0 [facility] Comment on above: Performed By: #### B MP #### [facility] [address] [address] [address] Arianna Hamlin Urea nitrogen/Creatinine [Mass ratio] 10.1 mg/mg Normal [facility] Comment on above: Performed By: #### B MP #### [facility] [address] [address] [address] Arianna Hamlin UA RANDOMon 08-15-2022 Bilirubin Ql (U) Negative Normal NEGATIVE [facility] Comment on above: Performed By: #### C BC #### [facility] [address] [address] [address] Arianna Hamlin Clarity (U) CLEAR Normal CLEAR [facility] Comment on above: Performed By: #### C BC #### [facility] [address] [address] [address] Arianna Hamlin Glucose Ql (U) Negative Normal NEGATIVE [facility] Comment on above: Performed By: #### C BC #### [facility] [address] [place] [address] Dr. Arianna Hamlin Hemoglobin Ql (U) Negative Normal NEGATIVE [facility] Comment on above: Performed By: #### C BC #### [facility] [address] [address] [address] Arianna Hamlin Ketones Ql (U) Negative Normal NEGATIVE [facility] Comment on above: Performed By: #### C BC #### [facility] [address] [address] [address] Arianna Hamlin LEUKOCYTES MODERATE Abnormal NEGATIVE [facility] Comment on above: Performed By: #### C BC #### [facility] [address] [place] [address] Dr. Arianna Hamlin Nitrite Ql (U) Negative Normal NEGATIVE [facility] Comment on above: Performed By: #### C BC #### [facility] [address] [place] [address] Dr. Arianna Hamlin pH (U) 7.0 [pH] Normal 5-9 [facility] Comment on above: Performed By: #### C BC #### [facility] [address] [place] [address] Dr. Arianna Hamlin SPEC GRAVITY 1.010 Normal 1.005-<=1.025 [facility] Comment on above: Performed By: #### C BC #### [facility] [address] [place] [address] Dr. Arianna Hamlin UA PROTEIN Negative Normal NEGATIVE/ TRACE [facility] Comment on above: Performed By: #### C BC #### [facility] [address] [place] [address] Dr. Arianna Hamlin Urobilinogen Qn (U) 0.2 {Ayden'U}/dL Normal 0.2 - 1. 0 [facility] Comment on above: Performed By: #### C BC #### [facility] [address] [place] [address] Dr. Arianna Hamlin XR FOOT RT 2Von [...] Date: 2022-08-15 08:59 Normal [facility] POINT OF CARE GLUCOSEon 07-30 Glucose [Mass/Vol] 138 mg/dL Critically high 74-106 [facility] Comment on above: Performed By: #### P OCGLUC #### [facility] [address] [place] [address] Dr. Arianna Hamlin Glucose [Mass/Vol] 94 mg/dL Normal 74-106 [facility] Comment on above: Performed By: #### P OCGLUC #### [facility] [address] [place] [address] Dr. Arianna Hamlin CBC AUTO DIFFon 08-08-2022 BASO # 0.0 103/ul Normal 0.0-0.1 [facility] Comment on above: Performed By: #### C BC #### [facility] [address] [place] [address] Dr. Arianna Hamlin Basophils/100 WBC (Bld) 0.7 % Normal 0.2-2.0 [facility] Comment on above: Performed By: #### C BC #### [facility] [address] [place] [address] Dr. Arianna Hamlin EO # 0.1 103/ul Normal 0.0-0.7 [facility] Comment on above: Performed By: #### C BC #### [facility] [address] [place] [address] Dr. Arianna Hamlin Eosinophils/100 WBC (Bld) 1.3 % Normal 0.9-7.0 [facility] Comment on above: Performed By: #### C BC #### [facility] [address] [place] [address] Dr. Arianna Hamlin Erythrocyte distribution width (RBC) [Ratio] 12.3 % Normal 11.0-15.0 [facility] Comment on above: Performed By: #### C BC #### [facility] [address] [place] [address] Dr. Arianna Hamlin Hematocrit (Bld) [Volume fraction] 38.4 % Normal 36.0-48.0 [facility] Comment on above: Performed By: #### C BC #### [facility] [address] [place] [address] Dr. Arianna Hamlin Hemoglobin (Bld) [Mass/Vol] 13.2 g/dL Normal 12.0-16.0 [facility] Comment on above: Performed By: #### C BC #### [facility] [address] [place] [address] Dr. Arianna Hamlin IG # 0.01 10e3/ul Normal 0.00-0.03 [facility] Comment on above: Performed By: #### C BC #### [facility] [address] [place] [address] Dr. Arianna Hamlin IG % 0.2 % Normal 0.0-0.5 [facility] Comment on above: Performed By: #### C BC #### [facility] [address] [place] [address] Dr. Arianna Hamlin LYMPH # 1.8 103/ul Normal 1.2-3.8 [facility] Comment on above: Performed By: #### C BC #### [facility] [address] [place] [address] Dr. Arianna Hamlin Lymphocytes/100 WBC (Bld) 30.8 % Normal 20.5-60.0 [facility] Comment on above: Performed By: #### C BC #### [facility] [address] [place] [address] Dr. Arianna Hamlin MANUAL DIFF REQ NO Normal [facility] Comment on above: Performed By: #### C BC #### [facility] [address] [place] [address] Dr. Arianna Hamlin MCH (RBC) [Entitic mass] 27.7 pg Normal 26.7-34.0 [facility] Comment on above: Performed By: #### C BC #### [facility] [address] [address] [address] Arianna Hamlin MCHC (RBC) [Mass/Vol] 34.4 g/dL Normal 29.9-35.2 [facility] Comment on above: Performed By: #### C BC #### [facility] [address] [address] [address] Arianna Hamlin MCV (RBC) [Entitic vol] 80.7 fL Critically low 81.0-99.0 [facility] Comment on above: Performed By: #### C BC #### [facility] [address] [place] [address] Dr. Arianna Hamlin MONO # 0.4 103/ul Normal 0.3-0.8 [facility] Comment on above: Performed By: #### C BC #### [facility] [address] [place] [address] Dr. Arianna Hamlin Monocytes/100 WBC (Bld) 7.1 % Normal 1.7-12.0 [facility] Comment on above: Performed By: #### C BC #### [facility] [address] [place] [address] Dr. Arianna Hamlin NEUT # 3.6 103/ul Normal 1.4-6.5 [facility] Comment on above: Performed By: #### C BC #### [facility] [address] [place] [address] Dr. Arianna Hamlin Neutrophils/100 WBC (Bld) 59.9 % Normal 43.0-75.0 [facility] Comment on above: Performed By: #### C BC #### [facility] [address] [place] [address] Dr. Arianna Hamlin Platelet mean volume (Bld) [Entitic vol] 9.5 fL Normal 9.5-13.5 [facility] Comment on above: Performed By: #### C BC #### [facility] [address] [place] [address] Dr. Arianna Hamlin PLT 248 103/ul Normal 150-450 [facility] Comment on above: Performed By: #### C BC #### [facility] [address] [place] [address] Dr. Arianna Hamlin RBC 4.76 106/ul Normal 4.20-5.40 [facility] Comment on above: Performed By: #### C BC #### [facility] [address] [place] [address] Dr. Arianna Hamlin WBC 5.9 103/ul Normal 4.0-11.0 [facility] Comment on above: Performed By: #### C BC #### [facility] [address] [place] [address] Dr. Arianna Hamlin Covid-19 PCR (CVDTB)on 07-30 SARS-CoV-2 (COVID-19) RNA RICHARD+probe Ql (Unsp spec) Not detected Normal NOT DETECTED [facility] Comment on above: Result Comment: This test is not yet approved or cleared by the [place] FDA. When there are no FDA-approved or cleared tests available, and other criteria are met, FDA can make tests available under an emergency access mechanism called an Emergency Use Authorization (EUA). The EUA for this test is supported by the [place] of Health and Human Service's (HHS's) declaration [...] By: #### C VDTBH #### [facility] [address] [place] [address] Dr. Arianna Hamlin PROF CHEM 8 (BAS METB)on Anion gap [Moles/Vol] 10.1 mmol/L Normal [facility] Comment on above: Performed By: #### B MP #### [facility] [address] [place] [address] Dr. Arianna Hamlin Calcium [Mass/Vol] 9.2 mg/dL Normal 8.5-10.1 [facility] Comment on above: Performed By: #### B MP #### [facility] [address] [address] [address] Arianna Hamlin Chloride [Moles/Vol] 103 mmol/L Normal 98-107 [facility] Comment on above: Performed By: #### B MP #### [facility] [address] [address] [address] Arianna Hamlin CO2 [Moles/Vol] 30.7 mmol/L Normal 21.0-32.0 [facility] Comment on above: Performed By: #### B MP #### [facility] [address] [place] [address] Dr. Arianna Hamlin Creatinine [Mass/Vol] 0.86 mg/dL Normal 0.55-1.02 [facility] Comment on above: Performed By: #### B MP #### [facility] [address] [address] [address] Arianna Hamlin EGFR-AF NAMIBIAN >60 Normal >=60 [facility] Comment on above: Performed By: #### B MP #### [facility] [address] [place] [address] Dr. Arianna Hamlin EGFR-NON AF NAMIBIAN >60 Normal >=60 [facility] Comment on above: Performed By: #### B MP #### [facility] [address] [place] [address] Dr. Arianna Hamlin Glucose [Mass/Vol] 77 mg/dL Normal 74-106 [facility] Comment on above: Performed By: #### B MP #### [facility] [address] [address] [address] Arianna Hamlin Potassium [Moles/Vol] 3.8 mmol/L Normal 3.5-5.1 [facility] Comment on above: Performed By: #### B MP #### [facility] [address] [place] [address] Dr. Arianna Hamlin Sodium [Moles/Vol] 140 mmol/L Normal 136-145 [facility] Comment on above: Performed By: #### B MP #### [facility] [address] [address] [address] Arianna Hamlin Urea nitrogen [Mass/Vol] 8.0 mg/dL Normal 7.0-18.0 [facility] Comment on above: Performed By: #### B MP #### [facility] [id number] Arianna Hamlin Urea nitrogen/Creatinine [Mass ratio] 9.3 mg/mg Normal [facility] Comment on above: Performed By: #### B MP #### [facility] [address] [address] [address] Arianna Hamlin Covid-19 PCR ([facility])on SARS-CoV-2 (COVID-19) RNA RICHARD+probe Ql (Unsp spec) Not detected Normal NOT DETECTED [facility] Comment on above: Result Comment: This test is not yet approved or cleared by the [place] FDA. When there are no FDA-approved or cleared tests available, and other criteria are met, FDA can make tests available under an emergency access mechanism called an Emergency Use Authorization (EUA). The EUA for this test is supported by the [place] of Health and Human Service's (HHS's) declaration [...] By: #### B MP #### [facility] [address] [place] [address] Dr. Arianna Hamlin MRI ANKLE RT WO [...] DALTON ALVARENGA Date: 2022-06-24 12:09 Normal [facility] H PYLORI TISSUEon 05-17-2022 H PYL TISSUE, UREASE Negative Normal NEGATIVE [facility] Comment on above: Performed By: #### B MP #### [facility] [address] [place], [place] [address] Dr. Arianna Hamlin Covid-19 PCR ([facility])on 04-29 SARS-CoV-2 (COVID-19) RNA RICHARD+probe Ql (Unsp spec) Not detected Normal NOT DETECTED [facility] Comment on above: Result Comment: This test is not yet approved or cleared by the [place] FDA. When there are no FDA-approved or cleared tests available, and other criteria are met, FDA can make tests available under an emergency access mechanism called an Emergency Use Authorization (EUA). The EUA for this test is supported by the [place] of Health and Human Service's (HHS's) declaration [...] By: #### C VDTBH #### [facility] [address] [place], [place] [address] Dr. Arianna Hamlin FLORINA by IFAon 05-11-2022 Antinuclear Antibodies, IFA Negative Normal [facility] Comment on above: Result Comment: Nega tive <1:80 Borderline 1:80 Positive >1:80 ICAP nomenclature: AC-0 For more information about Hep-2 cell patterns use ANApatterns.org, the official website for the International Consensus on Antinuclear Antibody (FLORINA) Patterns (ICAP). Performed By: #### B MP #### [facility] [address] [place] [address] Dr. Arianna Hamlin CULTURE URINEon 05-11-2022 CULTURE [...] <=20 S C Normal [facility] Comment on above: Performed By: #### C BC #### [facility] [address] [place] [address] Dr. Arianna Hamlin ANTISTREPTOLYSIN O AB (ASO)o n 05-10-2022 Antistreptolysin O Ab 45.8 IU/mL Normal 0.0-200.0 [facility] Comment on above: Performed By: #### C BC #### [facility] [address] [place] [address] Dr. Arianna Hamlin RHEUMATOID FACTORon 05-10-20 RA Latex Turbid. <10.0 Normal <14.0 [facility] Comment on above: Performed By: #### B MP #### [facility] [address] [place] [address] Dr. Arianna Hamlin CRPon 05-08-2022 CRP [Mass/Vol] mg/L Normal <=1.0 [facility] Comment on above: Performed By: #### C BC #### [facility] [address] [place] [address] Dr. Arianna Hamlin UA RANDOM W/MICROSCOPICon BACTERIA LARGE Abnormal NONE SEEN [facility] Comment on above: Performed By: #### U AMIC #### [facility] [address] [address] [address] Arianna Hamlin Bilirubin Ql (U) Negative Normal NEGATIVE [facility] Comment on above: Performed By: #### U AMIC #### [facility] [address] [address] [address] Arianna Hamlin CAST NONE SEEN Normal NONE SEEN [facility] Comment on above: Performed By: #### U AMIC #### [facility] [address] [address] [address] Arianna Hamlin Clarity (U) CLEAR Normal CLEAR [facility] Comment on above: Performed By: #### U AMIC #### [facility] [address] [place] [address] Dr. Arianna Hamlin Color (U) LT. YELLOW Normal YELLOW [facility] Comment on above: Performed By: #### U AMIC #### [facility] [address] [address] [address] Arianna Hamlin Crystals LM Nom (Urine sed) NONE SEEN Normal NONE SEEN [facility] Comment on above: Performed By: #### U AMIC #### [facility] [address] [place] [address] Dr. Arianna Hamlin Epithelial cells LM Ql (Urine sed) FEW Abnormal NONE SEEN /RARE [facility] Comment on above: Performed By: #### U AMIC #### [facility] [address] [address] [address] Arianna Hamlin Glucose Ql (U) Negative Normal NEGATIVE [facility] Comment on above: Performed By: #### U AMIC #### [facility] [address] [address] [address] Arianna Hamlin Hemoglobin Ql (U) SMALL Abnormal NEGATIVE [facility] Comment on above: Performed By: #### U AMIC #### [facility] [address] [place] [address] Dr. Arianna Hamlin Ketones Ql (U) TRACE Abnormal NEGATIVE [facility] Comment on above: Performed By: #### U AMIC #### [facility] [address] [address] [address] Arianna Hamlin LEUKOCYTES MODERATE Abnormal NEGATIVE [facility] Comment on above: Performed By: #### U AMIC #### [facility] [address] [address] [address] Arianna Hamlin MUCOUS NONE SEEN Normal NONE SEEN [facility] Comment on above: Performed By: #### U AMIC #### [facility] [address] [address] [address] Arianna Hamlin Nitrite Ql (U) Positive Abnormal NEGATIVE [facility] Comment on above: Performed By: #### U AMIC #### [facility] [address] [address] [address] Arianna Hamlin pH (U) 6.0 [pH] Normal 5-9 [facility] Comment on above: Performed By: #### U AMIC #### [facility] [address] [place] [address] Dr. Arianna Hamlin RBC 2-5 Abnormal 0-2 [facility] Comment on above: Performed By: #### U AMIC #### [facility] [address] [address] [address] Arianna Hamlin SPEC GRAVITY >=1.030 Abnormal 1.005-<=1.025 [facility] Comment on above: Performed By: #### U AMIC #### [facility] [address] [address] [address] Arianna Hamlin UA PROTEIN Negative Normal NEGATIVE/ TRACE [facility] Comment on above: Performed By: #### U AMIC #### [facility] [address] [place] [address] Dr. Arianna Hamlin Urobilinogen Qn (U) 0.2 {Ayden'U}/dL Normal 0.2 - 1. 0 [facility] Comment on above: Performed By: #### U AMIC #### [facility] [address] [place] [address] Dr. Arianna Hamlin WBC 20-50 Abnormal NONE SEEN [facility] Comment on above: Performed By: #### U AMIC #### [facility] [address] [place] [address] Dr. Arianna Hamlin URIC ACID SERUMon 05-08-2022 Urate [Mass/Vol] 4.1 mg/dL Normal 2.6-6.0 [facility] Comment on above: Performed By: #### U BETY, CRP #### [facility] [address] [place] [address] Dr. Arianna Hamlin CBC AUTO DIFFon 01-24-2022 BASO # 0.1 103/ul Normal 0.0-0.1 [facility] Comment on above: Performed By: #### C BC #### [facility] [address] [place] [address] Dr. Arianna Hamlin Basophils/100 WBC (Bld) 0.9 % Normal 0.2-2.0 [facility] Comment on above: Performed By: #### C BC #### [facility] [address] [place] [address] Dr. Arianna Hamlin EO # 0.1 103/ul Normal 0.0-0.7 [facility] Comment on above: Performed By: #### C BC #### [facility] [address] [place] [address] Dr. Arianna Hamlin Eosinophils/100 WBC (Bld) 2.2 % Normal 0.9-7.0 [facility] Comment on above: Performed By: #### C BC #### [facility] [address] [place] [address] Dr. Arianna Hamlin Erythrocyte distribution width (RBC) [Ratio] 12.7 % Normal 11.0-15.0 [facility] Comment on above: Performed By: #### C BC #### [facility] [address] [place] [address] Dr. Arianna Hamlin Hematocrit (Bld) [Volume fraction] 42.6 % Normal 36.0-48.0 [facility] Comment on above: Performed By: #### C BC #### [facility] [address] [place] [address] Dr. Arianna Hamlin Hemoglobin (Bld) [Mass/Vol] 14.2 g/dL Normal 12.0-16.0 [facility] Comment on above: Performed By: #### C BC #### [facility] [address] [place] [address] Dr. Arianna Hamlin IG # 0.02 10e3/ul Normal 0.00-0.03 [facility] Comment on above: Performed By: #### C BC #### [facility] [address] [place] [address] Dr. Arianna Hamlin IG % 0.4 % Normal 0.0-0.5 [facility] Comment on above: Performed By: #### C BC #### [facility] [address] [place] [address] Dr. Arianna Hamlin LYMPH # 2.0 103/ul Normal 1.2-3.8 [facility] Comment on above: Performed By: #### C BC #### [facility] [address] [place] [address] Dr. Arianna Hamlin Lymphocytes/100 WBC (Bld) 38.1 % Normal 20.5-60.0 [facility] Comment on above: Performed By: #### C BC #### [facility] [address] [place] [address] Dr. Arianna Hamlin MANUAL DIFF REQ NO Normal [facility] Comment on above: Performed By: #### C BC #### [facility] [address] [place] [address] Dr. Arianna Hamlin MCH (RBC) [Entitic mass] 28.1 pg Normal 26.7-34.0 [facility] Comment on above: Performed By: #### C BC #### [facility] [address] [place] [address] Dr. Arianna Hamlin MCHC (RBC) [Mass/Vol] 33.3 g/dL Normal 29.9-35.2 [facility] Comment on above: Performed By: #### C BC #### [facility] [address] [place] [address] Dr. Arianna Hamlin MCV (RBC) [Entitic vol] 84.4 fL Normal 81.0-99.0 [facility] Comment on above: Performed By: #### C BC #### [facility] [address] [place] [address] Dr. Arianna Hamlin MONO # 0.4 103/ul Normal 0.3-0.8 [facility] Comment on above: Performed By: #### C BC #### [facility] [address] [place] [address] Dr. Arianna Hamlin Monocytes/100 WBC (Bld) 7.3 % Normal 1.7-12.0 [facility] Comment on above: Performed By: #### C BC #### [facility] [address] [place] [address] Dr. Arianna Hamlin NEUT # 2.7 103/ul Normal 1.4-6.5 [facility] Comment on above: Performed By: #### C BC #### [facility] [address] [place] [address] Dr. Arianna Hamlin Neutrophils/100 WBC (Bld) 51.1 % Normal 43.0-75.0 [facility] Comment on above: Performed By: #### C BC #### [facility] [address] [place] [address] Dr. Arianna Hamlin Platelet mean volume (Bld) [Entitic vol] 9.8 fL Normal 9.5-13.5 [facility] Comment on above: Performed By: #### C BC #### [facility] [address] [place] [address] Dr. Arianna Hamlin PLT 276 103/ul Normal 150-450 [facility] Comment on above: Performed By: #### C BC #### [facility] [address] [place] [address] Dr. Arianna Hamlin RBC 5.05 106/ul Normal 4.20-5.40 [facility] Comment on above: Performed By: #### C BC #### [facility] [address] [place] [address] Dr. Arianna Hamlin WBC 5.4 103/ul Normal 4.0-11.0 [facility] Comment on above: Performed By: #### C BC #### [facility] [address] [address] [address] Arianna Hamlin PROF 14(COMP METB)on 022 Albumin [Mass/Vol] 4.2 g/dL Normal 3.4-5.0 [facility] Comment on above: Performed By: #### B MP #### [facility] [address] [place] [address] Dr. Arianna Hamlin Albumin/Globulin [Mass ratio] 1.3 {ratio} Normal [facility] Comment on above: Performed By: #### B MP #### [facility] [address] [place] [address] Dr. Arianna Hamlin ALP [Catalytic activity/Vol] 92 U/L Normal 46-116 [facility] Comment on above: Performed By: #### B MP #### [facility] [address] [place] [address] Dr. Arianna Hamlin ALT [Catalytic activity/Vol] 25 U/L Normal 14-59 [facility] Comment on above: Performed By: #### B MP #### [facility] [address] [place] [address] Dr. Arianna Hamlin Anion gap [Moles/Vol] 10.4 mmol/L Normal [facility] Comment on above: Performed By: #### B MP #### [facility] [address] [place] [address] Dr. Arianna Hamlin AST [Catalytic activity/Vol] 20 U/L Normal 15-37 [facility] Comment on above: Performed By: #### B MP #### [facility] [address] [place] [address] Dr. Arianna Hamlin Bilirubin [Mass/Vol] 0.2 mg/dL Normal 0.2-1.0 [facility] Comment on above: Performed By: #### B MP #### [facility] [address] [place] [address] Dr. Arianna Hamlin Calcium [Mass/Vol] 9.0 mg/dL Normal 8.5-10.1 [facility] Comment on above: Performed By: #### B MP #### [facility] [address] [place] [address] Dr. Arianna Hamlin Chloride [Moles/Vol] 103 mmol/L Normal 98-107 [facility] Comment on above: Performed By: #### B MP #### [facility] [address] [address] [address] Arianna Hamlin CO2 [Moles/Vol] 29.7 mmol/L Normal 21.0-32.0 [facility] Comment on above: Performed By: #### B MP #### [facility] [address] [address] [address] Arianna Hamlin Creatinine [Mass/Vol] 0.87 mg/dL Normal 0.55-1.02 [facility] Comment on above: Performed By: #### B MP #### [facility] [address] [place] [address] Dr. Arianna Hamlin EGFR-AF NAMIBIAN >60 Normal >=60 [facility] Comment on above: Performed By: #### B MP #### [facility] [address] [address] [address] Arianna Hamlin EGFR-NON AF NAMIBIAN >60 Normal >=60 [facility] Comment on above: Performed By: #### B MP #### [facility] [address] [place] [address] Dr. Arianna Hamlin Globulin (S) [Mass/Vol] 3.3 g/dL Normal [facility] Comment on above: Performed By: #### B MP #### [facility] [address] [address] [address] Arianna Hamlin Glucose [Mass/Vol] 99 mg/dL Normal 74-106 [facility] Comment on above: Performed By: #### B MP #### [facility] [address] [address] [address] Arianna Hamlin Potassium [Moles/Vol] 4.1 mmol/L Normal 3.5-5.1 [facility] Comment on above: Performed By: #### B MP #### [facility] [address] [place] [address] Dr. Arianna Hamlin Protein [Mass/Vol] 7.5 g/dL Normal 6.4-8.2 [facility] Comment on above: Performed By: #### B MP #### [facility] [address] [address] [address] Arianna Hamlin Sodium [Moles/Vol] 139 mmol/L Normal 136-145 [facility] Comment on above: Performed By: #### B MP #### [facility] [address] [address] [address] Arianna Hamlin Urea nitrogen [Mass/Vol] 11.0 mg/dL Normal 7.0-18.0 [facility] Comment on above: Performed By: #### B MP #### [facility] [address] [address] [address] Arianna Hamlin Urea nitrogen/Creatinine [Mass ratio] 12.6 mg/mg Normal [facility] Comment on above: Performed By: #### B MP #### [facility] [address] [address] [address] Arianna Hamlin Provider Letteron 09-06-2021 Provider Letter September 06, 2021 SIMIN CARO [address] [place] [id number] SIMIN CARO 1970 Dear Simin_ , We have been trying to reach you with no success. It is important that you return our call regarding your referral from Melinda Rodriguez upon receiving this letter. Also, at the time of your call, please provide us with your correct phone number. . Thank you for your prompt attention to this matter. Sincerely, General Surgery [phone] Normal [facility] Physician Referralon 022 Physician Referral [phone] [id number] Normal [facility] Vital Signs Date Time Vital Sign Value Performing Clinician Clarence cannon 02-03-2022 12:15-0400 Body height 160.02 cm Rai Alvarenga Other [facility] Other 02-03-2022 12:15-0400 Body mass index (BMI) [Ratio] 36.13 kg/m2 Rai Alvarenga Other [facility] Other 02-03-2022 12:15-0400 Body weight 92.53 kg Rai Alvarenga Other [facility] Other 01-27-2022 09:00-0400 Body height 160.02 cm Rai Colette Other [facility] Other 01-27-2022 09:00-0400 Body mass index (BMI) [Ratio] 36.13 kg/m2 Rai Colette Other [facility] Other 01-27-2022 09:00-0400 Body weight 92.53 kg Rai Colette Other [facility] Other 10-31-2021 16:30-0400 Body height 160.02 cm Rai Alvarenga Other [facility] Other 10-31-2021 16:30-0400 Body mass index (BMI) [Ratio] 37.02 kg/m2 Rai Colette Other [facility] Other 10-31-2021 16:30-0400 Body weight 94.8 kg Rai Alvarenga Other [facility] Other Encounters Encounter Date Encounter Type Care Provider Facility Start: 01-07-2024 ambulatory Bryce Duran acility:[facility] Start: 12-19-2022 End: 12-20-2022 ambulatory KEL MONTGOMERY Facility:[facility] Start: 11-14-2022 ambulatory KEL MONTGOMERY Facility: [facility] Start: 11-08-2022 End: 11-09-2022 ambulatory NONE LISTED REQUEST Facility:[facility] Start: 10-18-2022 End: 10-19-2022 ambulatory NONE LISTED REQUEST Facility:[facility] Start: 09-28-2022 End: 09-29-2022 ambulatory ADRIANA JUDY Facility:[facility] Start: 09-23-2022 End: 09-24-[address] NONE LISTED REQUEST Facility:[facility] Start: 09-07-2022 End: 09-08-2022 ambulatory ADIRANA JUDY Facility:[facility] Start: 08-14-2022 End: 08-15-[address] NONE LISTED REQUEST Facility:[facility] Start: 08-10-2022 Encounter for preprocedural laboratory examination LOS VENTURA [facility] Start: 08-10-2022 ambulatory KEL VALENTINA Facility: [...] VALENTINA Facility:[facility] Start: 05-08-2022 End: 05-09-2022 ambulatory KLE VALENTINA Facility:[facility] Start: 03-25-2022 ambulatory KEL VALENTINA Facility: [facility] Start: 02-27-2022 ambulatory KEL VALENTINA Facility: [facility] Start: 02-03-2022 End: 02-03-2022 ambulatory Rai Alvarenga Other [facility] Other Start: 02-03-2022 Postop follow up vis it related to original px Rai Alvarenga [facility] Start: 01-27-2022 End: 01-27-2022 ambulatory Rai Alvarenga Other [facility] Other Start: 01-27-2022 Office outpatient vi sit 15 minutes Rai Alvarenga [facility] Start: 01-24-2022 End: 01-25-2022 ambulatory RAI ALVARENGA Facility:[facility] Start: 10-31-2021 End: 10-31-2021 ambulatory Rai Alvarenga Other [facility] Other Start: 10-31-2021 Office outpatient ne w 45 minutes Rai Alvarenga [facility] Immunizations Immunization Date Immunization Notes Care Provider Fa chaz 05-16-2021 influenza, injectabl e, quadrivalent, preservative free Rai Colette Other [facility] Other 01-01-2021 COVID-19 Vaccine Yari - Documentation Purposes Only Rai Colette Other [facility] Other Payers Date Payer Category Payer Unknown [id number] .. [id number] 1970 Unknown [id number] ..[id number] 1970 Unknown [id number] .. 0.1.101946.3.579.2.593 1970 Unknown [id number] ..[id number] 0.1.126718.3.579.2.593 1970 Unknown [id number] .16.84 0.1.020271.3.579.2.593 1970 Unknown [id number] ..[id number] 0.1.182982.3.579.2.593 1970 Unknown [id number] ..[id number] 0.1.159052.3.579.2.593 1970 Unknown [id number] 2.16.84 0.1.083226.3.579.2.593 1970 Unknown [id number] 2.16.84 0.1.010081.3.579.2.593 1970 Unknown [id number] 2.16.84 0.1.825873.3.579.2.593 1970 Unknown [id number] 2.16.84 0.1.173015.3.579.2.593 1970 Unknown [id number] 2.16.84 0.1.000104.3.579.2.593 1970 Unknown [id number] 2.16.84 0.1.731064.3.579.2.593 1970 Unknown [id number] 2.16.84 0.1.129071.3.579.2.593 1970 Unknown [id number] 2.16.84 0.1.909561.3.579.2.593 1970 Unknown [id number] 2.16.84 0.1.782241.3.579.2.593 1970 Unknown [id number] 2.16.84 0.1.639582.3.579.2.593 1970 Unknown [id number] 2.16.84 0.1.345320.3.579.2.593 1970 Unknown [id number] 2.16.84 0.1.292525.3.579.2.593 1970 Unknown [id number] 2.16.84 0.1.293769.3.579.2.593 1970 Unknown [id number] 2.16.84 0.1.158743.3.579.2.593 1970 Unknown [id number] 2.16.84 0.1.556058.3.579.2.593 1959 Blue Cross Blue Shield [id number] [id number] 1959 Self-pay Unknown [id number] 2.16.8 [id number] Social History Date Type Detail Facility Sex Assigned At [facility] Other Clinical Notes 10-31-2021 to 12-19-2022 Note [...] by: LARISSA CHOI Date: 2022-12-19 11:40 [facility] 10-19-2022 Note PROCEDURE: XR FOOT [...] by: TERI KAY Date: 2022-10-19 08:47 [facility] 09-28-2022 Note PROCEDURE: XR FOOT [...] by: BARBARA HERNANDEZ Date: 2022-09-28 16:30 [facility] 09-08-2022 Note PROCEDURE: XR FOOT [...] authenticated by: TERI KAY Date: 2022-09-08 07:03 [facility] 08-15-2022 Note PROCEDURE: XR FOOT R [...] authenticated by: BARBARA HERNANDEZ Date: 2022-08-15 08:58 [facility] 08-15-2022 Note PROCEDURE: XR FOOT R [...] authenticated by: BARBARA HERNANDEZ Date: 2022-08-15 08:58 [facility] 06-15-2022 Note PROCEDURE: XR FOOT R T MIN 3 VIEWS COMPARISON: 09/08/2021 HISTORY: Pain in right foot FINDINGS: BONES:No acute fracture or dislocation. Stable prgi-pc-faybfmoo degenerative change with joint space narrowing marginal osteophyte formation most significant in the midfoot SOFT TISSUES:Negative. No visible soft tissue swelling. EFFUSION:None visible. OTHER: Negative. IMPRESSION: Stable degenerative changes Electronically authenticated by: BARBARA HERNANDEZ Date: 2022-06-15 08:48 [facility] 02-03-2022 Evaluation note Encounter Date [...] - M65.331) Currently resolved. Continue to monitor [facility] Other 07-01-2022 Evaluation note* Encounter Date Diagnosis [...] as documented in the electronic medical record. 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 I have advised against the usp use of narcotic pain medication. I have [...] as documented in the electronic medical record. [facility] Other History general Narrative - Reported* Type Description Date Medical History Hypertension Medical History chronic depression Medical History hearing loss Surgical History hysterectomy-partial 2016 [facility] Other Summary Purpose Family History No Family History Records FoundNo Family History Records FoundNo Family History Records Found Advance Directives No Advanced Directives Records FoundNo Advanced Directives Records FoundNo Advanced Directives Records Found Additional Source Comments REASON FOR VISIT (unrecogniz ed section and content) Bilateral Carpal TunnelRight Hip PainRecheck Left Wrist INFORMATION SOURCE (unrecogn ized section and content) DATE CREATED AUTHOR 02/17/2022 Dominic Black [facility] DATE CREATED AUTHOR AUTHOR'S ORGANIZ ATION 01/05/2023 [facility] DATE CREATED AUTHOR AUTHOR'S ORGANIZ ATION 03/28/2024 [facility] FOR RECORDS PERTAINING TO PATIENTS WHO [...] BE BASED ON THE PRIMARY CLINICAL RECORDS. [employer]. provides no warranty or guarantee of the accuracy or completeness of information in this document.
== END 2024-05-28 08:46 | disposition home or self-care (01) ==
LOC: EC 08:45
PROVIDERS: PCP Nurse Practitioner Family; Visit Provider Podiatrist Foot & Ankle Surgery
DX: M96.0 Pseudarthrosis after fusion or arthrodesis (principal); M24.674 Ankylosis, right foot; Z98.890 Other specified postprocedural states
CPT/HCPCS: 73630

== ENCOUNTER 2024-07-02 10:56 | Outpatient (OUT) | payer OTHER, SELFPAY ==
[2024-07-02 11:15] LABS: Basophils Percent Auto 0.8 % (0.2-2.0); Eosinophils Percent Auto 0.6 % (0.9-7.0); Hematocrit 46.6 % (36.0-48.0); Hemoglobin 15.6 g/dL (12.0-16.0); Immature Granulocytes Abs Auto 0.01 10^3/uL (0.00-0.03); Immature Granulocytes Pct Auto 0.2 % (0.0-0.5); Lymphocytes Absolute Auto 1.4 10^3/uL (1.2-3.8); Lymphocytes Percent Auto 28.3 % (20.5-60.0); Mean Corpuscular HGB Conc 33.5 g/dL (29.9-35.2); Mean Corpuscular Hemoglobin 28.7 pg (26.7-34.0); Mean Corpuscular Volume 85.8 fL (81.0-99.0); Monocytes Absolute Auto 0.5 10^3/uL (0.3-0.8); Monocytes Percent Auto 9.6 % (1.7-12.0); Neutrophils Percent Auto 60.5 % (43.0-75.0); Platelet Count 294 10^3/uL (150-450); Red Blood Count 5.43 10^6/uL (4.20-5.40); Red Cell Distribution Width 13.2 % (11.0-15.0); White Blood Count 4.9 10^3/uL (4.0-11.0)
--- OUTSIDE RECORDS SUMMARY | 2024-07-02 11:20 | XMS_ITS | CCD ---
Author Organization [facility] CliniSywy Care Team Providers Care Tv News Director Name Role Phone Rai Alvarenga Unavailable KEL MONTGOMERY Primary Care Unavailable LOS VENTURA Attending Unavailable LOS VENTURA Consulting Unavailable LOS VENUTRA Admitting Unavailable DALTON ALVARENGA Consulting Unavailable KEL [...] Consulting Unavailable KEL MONTGOMERY Primary Care Unavailable VARSHAILLICalin ., DR JASIEL Hutchinson Admitting Unavaila ble [...] DR JASIEL Hutchinson Attending Unavaila ble [place], [facility] Primary Care Unavailable GRILLIS ., DR JASIEL [...] Facility (3 sources) Aspirin Drug Allergy Unknown [facility] Other (3 sources) Latex Propensity to adverse reactions Unknown [facility] Other (2 sources) Aspirin Drug Allergy [facility] (2 sources) Latex Drug allergy (disorder) [facility] (1 source) Aspirin Drug Allergy 2 [facility] Repository (1 source) Latex Drug allergy (disorder) 2 [facility] Medications Current Medications Medication Drug [...] mouth every week Vitamin D3 1.25 MG (99479 UT) 1 capsule Orally once per week [...] by: Elizabeth INFANTE Date: 2022-11-10 23:57 Normal [facility] US KIDNEYS BLADDERon 023 US KIDNEYS BLADDER US KIDNEYS BLADDER EXAM DATE: 09/23/2022 6:34 AM MST COMPARISON: None available. INDICATION: Recurrent UTI. TECHNIQUE: Real-time ultrasound scanning of the kidneys and bladder was performed by the pipe coremaker. Parker static images are submitted for review. FINDINGS: [...] NEEL WEBBER Date: 2022-09-23 14:49 Normal [facility] CBC AUTO DIFFon 08-15-2022 BASO # 0.0 103/ul Normal 0.0-0.1 [facility] Comment on above: Performed By: #### C BC #### [facility] [address] [address] [address] Arianna Hamlin Basophils/100 WBC (Bld) 0.3 % Normal 0.2-2.0 [facility] Comment on above: Performed By: #### C BC #### [facility] [address] [address] [address] Arianna Hamlin EO # 0.0 103/ul Normal 0.0-0.7 [facility] Comment on above: Performed By: #### C BC #### [facility] [address] [address] [address] Arianna Hamlin Eosinophils/100 WBC (Bld) 0.1 % Critically low 0.9-7.0 [facility] Comment on above: Performed By: #### C BC #### [facility] [address] [address] [address] Arianna Hamlin Erythrocyte distribution width (RBC) [Ratio] 12.2 % Normal 11.0-15.0 [facility] Comment on above: Performed By: #### C BC #### [facility] [address] [address] [address] Arianna Hamlin Hematocrit (Bld) [Volume fraction] 35.9 % Critically low 36.0-48.0 [facility] Comment on above: Performed By: #### C BC #### [facility] [address] [place] [address] Dr. Arianna Hamlin Hemoglobin (Bld) [Mass/Vol] 12.0 g/dL Normal 12.0-16.0 [facility] Comment on above: Performed By: #### C BC #### [facility] [address] [place] [address] Dr. Arianna Hamlin IG # 0.02 10e3/ul Normal 0.00-0.03 [facility] Comment on above: Performed By: #### C BC #### [facility] [address] [place] [address] Dr. Arianna Hamlin IG % 0.3 % Normal 0.0-0.5 [facility] Comment on above: Performed By: #### C BC #### [facility] [address] [place] [address] Dr. Arianna Hamlin LYMPH # 1.8 103/ul Normal 1.2-3.8 [facility] Comment on above: Performed By: #### C BC #### [facility] [address] [place] [address] Dr. Arianna Hamlin Lymphocytes/100 WBC (Bld) 22.8 % Normal 20.5-60.0 [facility] Comment on above: Performed By: #### C BC #### [facility] [address] [place] [address] Dr. Arianna Hamlin MANUAL DIFF REQ NO Normal [facility] Comment on above: Performed By: #### C BC #### [facility] [address] [place] [address] Dr. Arianna Hamlin MCH (RBC) [Entitic mass] 27.8 pg Normal 26.7-34.0 [facility] Comment on above: Performed By: #### C BC #### [facility] [address] [address] [address] Arianna Hamlin MCHC (RBC) [Mass/Vol] 33.4 g/dL Normal 29.9-35.2 [facility] Comment on above: Performed By: #### C BC #### [facility] [address] [address] [address] Arianna Hamlin MCV (RBC) [Entitic vol] 83.1 fL Normal 81.0-99.0 [facility] Comment on above: Performed By: #### C BC #### [facility] [address] [address] [address] Arianna Hamlin MONO # 0.9 103/ul Critically high 0.3-0.8 [facility] Comment on above: Performed By: #### C BC #### [facility] [address] [place] [address] Dr. Arianna Hamlin Monocytes/100 WBC (Bld) 10.8 % Normal 1.7-12.0 [facility] Comment on above: Performed By: #### C BC #### [facility] [address] [address] [address] Arianna Hamlin NEUT # 5.2 103/ul Normal 1.4-6.5 [facility] Comment on above: Performed By: #### C BC #### [facility] [address] [place] [address] Dr. Arianna Hamlin Neutrophils/100 WBC (Bld) 65.7 % Normal 43.0-75.0 [facility] Comment on above: Performed By: #### C BC #### [facility] [address] [address] [address] Arianna Hamlin Platelet mean volume (Bld) [Entitic vol] 10.2 fL Normal 9.5-13.5 [facility] Comment on above: Performed By: #### C BC #### [facility] [address] [address] [address] Arianna Hamlin PLT 243 103/ul Normal 150-450 [facility] Comment on above: Performed By: #### C BC #### [facility] [address] [place] [address] Dr. Arianna Hamlin RBC 4.32 106/ul Normal 4.20-5.40 [facility] Comment on above: Performed By: #### C BC #### [facility] [address] [place] [address] Dr. Arianna Hamlin WBC 7.9 103/ul Normal 4.0-11.0 [facility] Comment on above: Performed By: #### C BC #### [facility] [address] [place] [address] Dr. Arianna Hamlin PROF CHEM 8 (BAS METB)on Anion gap [Moles/Vol] 10.8 mmol/L Normal [facility] Comment on above: Performed By: #### B MP #### [facility] [address] [place] [address] Dr. Arianna Hamlin Calcium [Mass/Vol] 9.0 mg/dL Normal 8.5-10.1 [facility] Comment on above: Performed By: #### B MP #### [facility] [address] [place] [address] Dr. Arianna Hamlin Chloride [Moles/Vol] 101 mmol/L Normal 98-107 [facility] Comment on above: Performed By: #### B MP #### [facility] [address] [place] [address] Dr. Arianna Hamlin CO2 [Moles/Vol] 30.8 mmol/L Normal 21.0-32.0 [facility] Comment on above: Performed By: #### B MP #### [facility] [address] [place] [address] Dr. Arianna Hamlin Creatinine [Mass/Vol] 0.79 mg/dL Normal 0.55-1.02 [facility] Comment on above: Performed By: #### B MP #### [facility] [address] [place] [address] Dr. Arianna Hamlin EGFR-AF ESTONIAN >60 Normal >=60 [facility] Comment on above: Performed By: #### B MP #### [facility] [address] [place] [address] Dr. Arianna Hamlin EGFR-NON AF ESTONIAN >60 Normal >=60 [facility] Comment on above: Performed By: #### B MP #### [facility] [address] [address] [address] Arianna Hamlin Glucose [Mass/Vol] 110 mg/dL Critically high 74-[address] [facility] Comment on above: Performed By: #### B MP #### [facility] [address] [address] [address] Arianna Hamlin Potassium [Moles/Vol] 3.6 mmol/L Normal 3.5-5.1 [facility] Comment on above: Performed By: #### B MP #### [facility] [address] [address] [address] Arianna Hamlin Sodium [Moles/Vol] 139 mmol/L Normal 136-145 [facility] Comment on above: Performed By: #### B MP #### [facility] [address] [address] [address] Arianna Hamlin Urea nitrogen [Mass/Vol] 8.0 mg/dL Normal 7.0-18.0 [facility] Comment on above: Performed By: #### B MP #### [facility] [address] [address] [address] Arianna Hamlin Urea nitrogen/Creatinine [Mass ratio] 10.1 mg/mg Normal [facility] Comment on above: Performed By: #### B MP #### [facility] [address] [address] [address] Arianna Hamlin UA RANDOMon 08-15-2022 Bilirubin Ql (U) Negative Normal NEGATIVE [facility] Comment on above: Performed By: #### C BC #### [facility] [address] [address] [address] Arianna Hamlin Clarity (U) CLEAR Normal CLEAR [facility] Comment on above: Performed By: #### C BC #### [facility] [address] [address] [address] Arianna Hamlin Glucose Ql (U) Negative Normal NEGATIVE [facility] Comment on above: Performed By: #### C BC #### [facility] [address] [place] [address] Dr. Arianna Hamlin Hemoglobin Ql (U) Negative Normal NEGATIVE [facility] Comment on above: Performed By: #### C BC #### [facility] [address] [address] [address] Arianna Hamlin Ketones Ql (U) Negative Normal NEGATIVE [facility] Comment on above: Performed By: #### C BC #### [facility] [address] [address] [address] Arianna Hamlin LEUKOCYTES MODERATE Abnormal NEGATIVE [facility] Comment on above: Performed By: #### C BC #### [facility] [address] [place] [address] Dr. Arianna Hamlin Nitrite Ql (U) Negative Normal NEGATIVE [facility] Comment on above: Performed By: #### C BC #### [facility] [address] [place] [address] Dr. Arianna Hamlin pH (U) 7.0 [pH] Normal 5-9 [facility] Comment on above: Performed By: #### C BC #### [facility] [address] [place] [address] Dr. Arianna Hamlin SPEC GRAVITY 1.010 Normal 1.005-<=1.025 [facility] Comment on above: Performed By: #### C BC #### [facility] [address] [place] [address] Dr. Arianna Hamlin UA PROTEIN Negative Normal NEGATIVE/ TRACE [facility] Comment on above: Performed By: #### C BC #### [facility] [address] [place] [address] Dr. Arianna Hamlin Urobilinogen Qn (U) 0.2 {Ayden'U}/dL Normal 0.2 - 1. 0 [facility] Comment on above: Performed By: #### C BC #### [facility] [address] [place] [address] Dr. Arianna Hamlin XR FOOT RT 2Von [...] BARBARA HERNANDEZ Date: 2022-08-15 08:59 Normal [facility] POINT OF CARE GLUCOSEon 07-30 Glucose [Mass/Vol] 138 mg/dL Critically high 74-106 [facility] Comment on above: Performed By: #### P OCGLUC #### [facility] [address] [place] [address] Dr. Arianna Hamlin Glucose [Mass/Vol] 94 mg/dL Normal 74-106 [facility] Comment on above: Performed By: #### P OCGLUC #### [facility] [address] [place] [address] Dr. Arianna Hamlin CBC AUTO DIFFon 08-08-2022 BASO # 0.0 103/ul Normal 0.0-0.1 [facility] Comment on above: Performed By: #### C BC #### [facility] [address] [place] [address] Dr. Arianna Hamlin Basophils/100 WBC (Bld) 0.7 % Normal 0.2-2.0 [facility] Comment on above: Performed By: #### C BC #### [facility] [address] [place] [address] Dr. Arianna Hamlin EO # 0.1 103/ul Normal 0.0-0.7 [facility] Comment on above: Performed By: #### C BC #### [facility] [address] [place] [address] Dr. Arianna Hamlin Eosinophils/100 WBC (Bld) 1.3 % Normal 0.9-7.0 [facility] Comment on above: Performed By: #### C BC #### [facility] [address] [place] [address] Dr. Arianna Hamlin Erythrocyte distribution width (RBC) [Ratio] 12.3 % Normal 11.0-15.0 [facility] Comment on above: Performed By: #### C BC #### [facility] [address] [place] [address] Dr. Arianna Hamlin Hematocrit (Bld) [Volume fraction] 38.4 % Normal 36.0-48.0 [facility] Comment on above: Performed By: #### C BC #### [facility] [address] [place] [address] Dr. Arianna Hamlin Hemoglobin (Bld) [Mass/Vol] 13.2 g/dL Normal 12.0-16.0 [facility] Comment on above: Performed By: #### C BC #### [facility] [address] [place] [address] Dr. Arianna Hamlin IG # 0.01 10e3/ul Normal 0.00-0.03 [facility] Comment on above: Performed By: #### C BC #### [facility] [address] [place] [address] Dr. Arianna Hamlin IG % 0.2 % Normal 0.0-0.5 [facility] Comment on above: Performed By: #### C BC #### [facility] [address] [place] [address] Dr. Arinana Hamlin LYMPH # 1.8 103/ul Normal 1.2-3.8 [facility] Comment on above: Performed By: #### C BC #### [facility] [address] [place] [address] Dr. Arianna Hamlin Lymphocytes/100 WBC (Bld) 30.8 % Normal 20.5-60.0 [facility] Comment on above: Performed By: #### C BC #### [facility] [address] [place] [address] Dr. Arianna Hamlin MANUAL DIFF REQ NO Normal [facility] Comment on above: Performed By: #### C BC #### [facility] [address] [place] [address] Dr. Arianna Hamlin MCH (RBC) [Entitic mass] 27.7 pg Normal 26.7-34.0 [facility] Comment on above: Performed By: #### C BC #### [facility] [address] [address] [address] Arianna Hamlin MCHC (RBC) [Mass/Vol] 34.4 g/dL Normal 29.9-35.2 [facility] Comment on above: Performed By: #### C BC #### [facility] [address] [address] [address] Arianna Hamlin MCV (RBC) [Entitic vol] 80.7 fL Critically low 81.0-99.0 [facility] Comment on above: Performed By: #### C BC #### [facility] [address] [place] [address] Dr. Arianna Hamlin MONO # 0.4 103/ul Normal 0.3-0.8 [facility] Comment on above: Performed By: #### C BC #### [facility] [address] [place] [address] Dr. Arianna Hamlin Monocytes/100 WBC (Bld) 7.1 % Normal 1.7-12.0 [facility] Comment on above: Performed By: #### C BC #### [facility] [address] [place] [address] Dr. Arianna Hamlin NEUT # 3.6 103/ul Normal 1.4-6.5 [facility] Comment on above: Performed By: #### C BC #### [facility] [address] [place] [address] Dr. Arianna Hamlin Neutrophils/100 WBC (Bld) 59.9 % Normal 43.0-75.0 [facility] Comment on above: Performed By: #### C BC #### [facility] [address] [place] [address] Dr. Arianna Hamlin Platelet mean volume (Bld) [Entitic vol] 9.5 fL Normal 9.5-13.5 [facility] Comment on above: Performed By: #### C BC #### [facility] [address] [place] [address] Dr. Arianna Hamlin PLT 248 103/ul Normal 150-450 [facility] Comment on above: Performed By: #### C BC #### [facility] [address] [place] [address] Dr. Arianna Hamlin RBC 4.76 106/ul Normal 4.20-5.40 [facility] Comment on above: Performed By: #### C BC #### [facility] [address] [place] [address] Dr. Arianna Hamlin WBC 5.9 103/ul Normal 4.0-11.0 [facility] Comment on above: Performed By: #### C BC #### [facility] [address] [place] [address] Dr. Arianna Hamlin Covid-19 PCR (CVDTB)on 07-30 SARS-CoV-2 (COVID-19) RNA RICHARD+probe Ql (Unsp spec) Not detected Normal NOT DETECTED [facility] Comment on above: Result Comment: This test is not yet approved or cleared by the [place] FDA. When there are no FDA-approved or cleared tests available, and other criteria are met, FDA can make tests available under an emergency access mechanism called an Emergency Use Authorization (EUA). The EUA for this test is supported by the [place] of Health and Human Service's (HHS's) declaration [...] SARS-CoV-2. Performed By: #### C VDTBH #### [facility] [address] [place] [address] Dr. Arianna Hamlin PROF CHEM 8 (BAS METB)on Anion gap [Moles/Vol] 10.1 mmol/L Normal [facility] Comment on above: Performed By: #### B MP #### [facility] [address] [place] [address] Dr. Arianna Hamlin Calcium [Mass/Vol] 9.2 mg/dL Normal 8.5-10.1 [facility] Comment on above: Performed By: #### B MP #### [facility] [address] [address] [address] Arianna Hamlin Chloride [Moles/Vol] 103 mmol/L Normal 98-107 [facility] Comment on above: Performed By: #### B MP #### [facility] [address] [address] [address] Arianna Hamlin CO2 [Moles/Vol] 30.7 mmol/L Normal 21.0-32.0 [facility] Comment on above: Performed By: #### B MP #### [facility] [address] [place] [address] Dr. Arianna Hamlin Creatinine [Mass/Vol] 0.86 mg/dL Normal 0.55-1.02 [facility] Comment on above: Performed By: #### B MP #### [facility] [address] [address] [address] Arianna Hamlin EGFR-AF ESTONIAN >60 Normal >=60 [facility] Comment on above: Performed By: #### B MP #### [facility] [address] [place] [address] Dr. Arianna Hamlin EGFR-NON AF ESTONIAN >60 Normal >=60 [facility] Comment on above: Performed By: #### B MP #### [facility] [address] [place] [address] Dr. Arianna Hamlin Glucose [Mass/Vol] 77 mg/dL Normal 74-106 [facility] Comment on above: Performed By: #### B MP #### [facility] [address] [address] [address] Arianna Hamlin Potassium [Moles/Vol] 3.8 mmol/L Normal 3.5-5.1 [facility] Comment on above: Performed By: #### B MP #### [facility] [address] [place] [address] Dr. Arianna Hamlin Sodium [Moles/Vol] 140 mmol/L Normal 136-145 [facility] Comment on above: Performed By: #### B MP #### [facility] [address] [address] [address] Arianna Hamlin Urea nitrogen [Mass/Vol] 8.0 mg/dL Normal 7.0-18.0 [facility] Comment on above: Performed By: #### B MP #### [facility] [id number] Arianna Hamlin Urea nitrogen/Creatinine [Mass ratio] 9.3 mg/mg Normal [facility] Comment on above: Performed By: #### B MP #### [facility] [address] [address] [address] Arianna Hamlin Covid-19 PCR ([facility])on SARS-CoV-2 (COVID-19) RNA RICHARD+probe Ql (Unsp spec) Not detected Normal NOT DETECTED [facility] Comment on above: Result Comment: This test is not yet approved or cleared by the [place] FDA. When there are no FDA-approved or cleared tests available, and other criteria are met, FDA can make tests available under an emergency access mechanism called an Emergency Use Authorization (EUA). The EUA for this test is supported by the [place] of Health and Human Service's (HHS's) declaration [...] SARS-CoV-2. Performed By: #### B MP #### [facility] [address] [place] [address] Dr. Arianna Hamlin MRI ANKLE RT WO [...] DALTON ALVARENGA Date: 2022-06-24 12:09 Normal [facility] H PYLORI TISSUEon 05-17-2022 H PYL TISSUE, UREASE Negative Normal NEGATIVE [facility] Comment on above: Performed By: #### B MP #### [facility] [address] [place], [place] [address] Dr. Arianna Hamlin Covid-19 PCR ([facility])on 04-29 SARS-CoV-2 (COVID-19) RNA RICHARD+probe Ql (Unsp spec) Not detected Normal NOT DETECTED [facility] Comment on above: Result Comment: This test is not yet approved or cleared by the [place] FDA. When there are no FDA-approved or cleared tests available, and other criteria are met, FDA can make tests available under an emergency access mechanism called an Emergency Use Authorization (EUA). The EUA for this test is supported by the [place] of Health and Human Service's (HHS's) declaration [...] SARS-CoV-2. Performed By: #### C VDTBH #### [facility] [address] [place], [place] [address] Dr. Arianna Hamlin FLORINA by IFAon 05-11-2022 Antinuclear Antibodies, IFA Negative Normal [facility] Comment on above: Result Comment: Nega tive <1:80 Borderline 1:80 Positive >1:80 ICAP nomenclature: AC-0 For more information about Hep-2 cell patterns use ANApatterns.org, the official website for the International Consensus on Antinuclear Antibody ([place]) Patterns (ICAP). Performed By: #### B MP #### [facility] [address] [place] [address] Dr. Arianna Hamlin CULTURE URINEon 05-11-2022 CULTURE [...] Trimethoprim/Sulfameth oxazole <=20 S C Normal [facility] Comment on above: Performed By: #### C BC #### [facility] [address] [place] [address] Dr. Arianna Hamlin ANTISTREPTOLYSIN O AB (ASO)o n 05-10-2022 Antistreptolysin O Ab 45.8 IU/mL Normal 0.0-200.0 [facility] Comment on above: Performed By: #### C BC #### [facility] [address] [place] [address] Dr. Arianna Hamlin RHEUMATOID FACTORon 05-10-20 RA Latex Turbid. <10.0 Normal <14.0 [facility] Comment on above: Performed By: #### B MP #### [facility] [address] [place] [address] Dr. Arianna Hamlin CRPon 05-08-2022 CRP [Mass/Vol] mg/L Normal <=1.0 [facility] Comment on above: Performed By: #### C BC #### [facility] [address] [place] [address] Dr. Arianna Hamlin UA RANDOM W/MICROSCOPICon BACTERIA LARGE Abnormal NONE SEEN [facility] Comment on above: Performed By: #### U AMIC #### [facility] [address] [address] [address] Arianna Hamlin Bilirubin Ql (U) Negative Normal NEGATIVE [facility] Comment on above: Performed By: #### U AMIC #### [facility] [address] [address] [address] Arianna Hamlin CAST NONE SEEN Normal NONE SEEN [facility] Comment on above: Performed By: #### U AMIC #### [facility] [address] [address] [address] Arianna Hamlin Clarity (U) CLEAR Normal CLEAR [facility] Comment on above: Performed By: #### U AMIC #### [facility] [address] [place] [address] Dr. Arianna Hamlin Color (U) LT. YELLOW Normal YELLOW [facility] Comment on above: Performed By: #### U AMIC #### [facility] [address] [address] [address] Arianna Hamlin Crystals LM Nom (Urine sed) NONE SEEN Normal NONE SEEN [facility] Comment on above: Performed By: #### U AMIC #### [facility] [address] [place] [address] Dr. Arianna Hamlin Epithelial cells LM Ql (Urine sed) FEW Abnormal NONE SEEN /RARE [facility] Comment on above: Performed By: #### U AMIC #### [facility] [address] [address] [address] Arianna Hamlin Glucose Ql (U) Negative Normal NEGATIVE [facility] Comment on above: Performed By: #### U AMIC #### [facility] [address] [address] [address] Arianna Hamlin Hemoglobin Ql (U) SMALL Abnormal NEGATIVE [facility] Comment on above: Performed By: #### U AMIC #### [facility] [address] [place] [address] Dr. Arianna Hamlin Ketones Ql (U) TRACE Abnormal NEGATIVE [facility] Comment on above: Performed By: #### U AMIC #### [facility] [address] [address] [address] Arianna Hamlin LEUKOCYTES MODERATE Abnormal NEGATIVE [facility] Comment on above: Performed By: #### U AMIC #### [facility] [address] [address] [address] Arianna Hamlin MUCOUS NONE SEEN Normal NONE SEEN [facility] Comment on above: Performed By: #### U AMIC #### [facility] [address] [address] [address] Arianna Hamlin Nitrite Ql (U) Positive Abnormal NEGATIVE [facility] Comment on above: Performed By: #### U AMIC #### [facility] [address] [address] [address] Arianna Hamlin pH (U) 6.0 [pH] Normal 5-9 [facility] Comment on above: Performed By: #### U AMIC #### [facility] [address] [place] [address] Dr. Arianna Hamlin RBC 2-5 Abnormal 0-2 [facility] Comment on above: Performed By: #### U AMIC #### [facility] [address] [address] [address] Arianna Hamlin SPEC GRAVITY >=1.030 Abnormal 1.005-<=1.025 [facility] Comment on above: Performed By: #### U AMIC #### [facility] [address] [address] [address] Arianna Hamlin UA PROTEIN Negative Normal NEGATIVE/ TRACE [facility] Comment on above: Performed By: #### U AMIC #### [facility] [address] [place] [address] Dr. Arianna Hamlin Urobilinogen Qn (U) 0.2 {Ayden'U}/dL Normal 0.2 - 1. 0 [facility] Comment on above: Performed By: #### U AMIC #### [facility] [address] [place] [address] Dr. Arianna Hamlin WBC 20-50 Abnormal NONE SEEN [facility] Comment on above: Performed By: #### U AMIC #### [facility] [address] [place] [address] Dr. Arianna Hamlin URIC ACID SERUMon 05-08-2022 Urate [Mass/Vol] 4.1 mg/dL Normal 2.6-6.0 [facility] Comment on above: Performed By: #### U BETY, CRP #### [facility] [address] [place] [address] Dr. Arianna Hamlin CBC AUTO DIFFon 01-24-2022 BASO # 0.1 103/ul Normal 0.0-0.1 [facility] Comment on above: Performed By: #### C BC #### [facility] [address] [place] [address] Dr. Arianna Hamlin Basophils/100 WBC (Bld) 0.9 % Normal 0.2-2.0 [facility] Comment on above: Performed By: #### C BC #### [facility] [address] [place] [address] Dr. Arianna Hamlin EO # 0.1 103/ul Normal 0.0-0.7 [facility] Comment on above: Performed By: #### C BC #### [facility] [address] [place] [address] Dr. Arianna Hamlin Eosinophils/100 WBC (Bld) 2.2 % Normal 0.9-7.0 [facility] Comment on above: Performed By: #### C BC #### [facility] [address] [place] [address] Dr. Arianna Hamlin Erythrocyte distribution width (RBC) [Ratio] 12.7 % Normal 11.0-15.0 [facility] Comment on above: Performed By: #### C BC #### [facility] [address] [place] [address] Dr. Arianna Hamlin Hematocrit (Bld) [Volume fraction] 42.6 % Normal 36.0-48.0 [facility] Comment on above: Performed By: #### C BC #### [facility] [address] [place] [address] Dr. Arianna Hamlin Hemoglobin (Bld) [Mass/Vol] 14.2 g/dL Normal 12.0-16.0 [facility] Comment on above: Performed By: #### C BC #### [facility] [address] [place] [address] Dr. Arianna Hamlin IG # 0.02 10e3/ul Normal 0.00-0.03 [facility] Comment on above: Performed By: #### C BC #### [facility] [address] [place] [address] Dr. Arianna Hamlin IG % 0.4 % Normal 0.0-0.5 [facility] Comment on above: Performed By: #### C BC #### [facility] [address] [place] [address] Dr. Arianna Hamlin LYMPH # 2.0 103/ul Normal 1.2-3.8 [facility] Comment on above: Performed By: #### C BC #### [facility] [address] [place] [address] Dr. Arianna Hamlin Lymphocytes/100 WBC (Bld) 38.1 % Normal 20.5-60.0 [facility] Comment on above: Performed By: #### C BC #### [facility] [address] [place] [address] Dr. Arianna Hamlin MANUAL DIFF REQ NO Normal [facility] Comment on above: Performed By: #### C BC #### [facility] [address] [place] [address] Dr. Arianna Hamlin MCH (RBC) [Entitic mass] 28.1 pg Normal 26.7-34.0 [facility] Comment on above: Performed By: #### C BC #### [facility] [address] [place] [address] Dr. Arianna Hamlin MCHC (RBC) [Mass/Vol] 33.3 g/dL Normal 29.9-35.2 [facility] Comment on above: Performed By: #### C BC #### [facility] [address] [place] [address] Dr. Arianna Hamlin MCV (RBC) [Entitic vol] 84.4 fL Normal 81.0-99.0 [facility] Comment on above: Performed By: #### C BC #### [facility] [address] [place] [address] Dr. Arianna Hamlin MONO # 0.4 103/ul Normal 0.3-0.8 [facility] Comment on above: Performed By: #### C BC #### [facility] [address] [place] [address] Dr. Arianna Hamlin Monocytes/100 WBC (Bld) 7.3 % Normal 1.7-12.0 [facility] Comment on above: Performed By: #### C BC #### [facility] [address] [place] [address] Dr. Arianna Hamlin NEUT # 2.7 103/ul Normal 1.4-6.5 [facility] Comment on above: Performed By: #### C BC #### [facility] [address] [place] [address] Dr. Arianna Hamlin Neutrophils/100 WBC (Bld) 51.1 % Normal 43.0-75.0 [facility] Comment on above: Performed By: #### C BC #### [facility] [address] [place] [address] Dr. Arianna Hamlin Platelet mean volume (Bld) [Entitic vol] 9.8 fL Normal 9.5-13.5 [facility] Comment on above: Performed By: #### C BC #### [facility] [address] [place] [address] Dr. Arianna Hamlin PLT 276 103/ul Normal 150-450 [facility] Comment on above: Performed By: #### C BC #### [facility] [address] [place] [address] Dr. Arianna Hamlin RBC 5.05 106/ul Normal 4.20-5.40 [facility] Comment on above: Performed By: #### C BC #### [facility] [address] [place] [address] Dr. Arianna Hamlin WBC 5.4 103/ul Normal 4.0-11.0 [facility] Comment on above: Performed By: #### C BC #### [facility] [address] [address] [address] Arianna Hamlin PROF 14(COMP METB)on 022 Albumin [Mass/Vol] 4.2 g/dL Normal 3.4-5.0 [facility] Comment on above: Performed By: #### B MP #### [facility] [address] [place] [address] Dr. Arianna Hamlin Albumin/Globulin [Mass ratio] 1.3 {ratio} Normal [facility] Comment on above: Performed By: #### B MP #### [facility] [address] [place] [address] Dr. Arianna Hamlin ALP [Catalytic activity/Vol] 92 U/L Normal 46-116 [facility] Comment on above: Performed By: #### B MP #### [facility] [address] [place] [address] Dr. Arianna Hamlin ALT [Catalytic activity/Vol] 25 U/L Normal 14-59 [facility] Comment on above: Performed By: #### B MP #### [facility] [address] [place] [address] Dr. Arianna Hamlin Anion gap [Moles/Vol] 10.4 mmol/L Normal [facility] Comment on above: Performed By: #### B MP #### [facility] [address] [place] [address] Dr. Arianna Hamlin AST [Catalytic activity/Vol] 20 U/L Normal 15-37 [facility] Comment on above: Performed By: #### B MP #### [facility] [address] [place] [address] Dr. Arianna Hamlin Bilirubin [Mass/Vol] 0.2 mg/dL Normal 0.2-1.0 [facility] Comment on above: Performed By: #### B MP #### [facility] [address] [place] [address] Dr. Arianna Hamlin Calcium [Mass/Vol] 9.0 mg/dL Normal 8.5-10.1 [facility] Comment on above: Performed By: #### B MP #### [facility] [address] [place] [address] Dr. Arianna Hamlin Chloride [Moles/Vol] 103 mmol/L Normal 98-107 [facility] Comment on above: Performed By: #### B MP #### [facility] [address] [address] [address] Arianna Hamlin CO2 [Moles/Vol] 29.7 mmol/L Normal 21.0-32.0 [facility] Comment on above: Performed By: #### B MP #### [facility] [address] [address] [address] Arianna Hamlin Creatinine [Mass/Vol] 0.87 mg/dL Normal 0.55-1.02 [facility] Comment on above: Performed By: #### B MP #### [facility] [address] [place] [address] Dr. Arianna Hamlin EGFR-AF ESTONIAN >60 Normal >=60 [facility] Comment on above: Performed By: #### B MP #### [facility] [address] [address] [address] Arianna Hamlin EGFR-NON AF ESTONIAN >60 Normal >=60 [facility] Comment on above: Performed By: #### B MP #### [facility] [address] [place] [address] Dr. Arianna Hamlin Globulin (S) [Mass/Vol] 3.3 g/dL Normal [facility] Comment on above: Performed By: #### B MP #### [facility] [address] [address] [address] Arianna Hamlin Glucose [Mass/Vol] 99 mg/dL Normal 74-106 [facility] Comment on above: Performed By: #### B MP #### [facility] [address] [address] [address] Arianna Hamlin Potassium [Moles/Vol] 4.1 mmol/L Normal 3.5-5.1 [facility] Comment on above: Performed By: #### B MP #### [facility] [address] [place] [address] Dr. Arianna Hamlin Protein [Mass/Vol] 7.5 g/dL Normal 6.4-8.2 [facility] Comment on above: Performed By: #### B MP #### [facility] [address] [address] [address] Arianna Hamlin Sodium [Moles/Vol] 139 mmol/L Normal 136-145 [facility] Comment on above: Performed By: #### B MP #### [facility] [address] [address] [address] Arianna Hamlin Urea nitrogen [Mass/Vol] 11.0 mg/dL Normal 7.0-18.0 [facility] Comment on above: Performed By: #### B MP #### [facility] [address] [address] [address] Arianna Hamlin Urea nitrogen/Creatinine [Mass ratio] 12.6 mg/mg Normal [facility] Comment on above: Performed By: #### B MP #### [facility] [address] [address] [address] Arianna Hamlin Provider Letteron 09-06-2021 Provider Letter September 06, 2021 SIMIN CARO [address] [place] [id number] SIMIN CARO 1970 Dear Simin_ , We have been trying to reach you with no success. It is important that you return our call regarding your referral from Melinda Rodriguez upon receiving this letter. Also, at the time of your call, please provide us with your correct phone number. . Thank you for your prompt attention to this matter. Sincerely, General Surgery [phone] Normal [facility] Physician Referralon 022 Physician Referral [phone] [id number] Normal [facility] Vital Signs Date Time Vital Sign Value Performing Clinician Clarence cannon 02-03-2022 12:15-0400 Body height 160.02 cm Rai Alvarenga Other [facility] Other 02-03-2022 12:15-0400 Body mass index (BMI) [Ratio] 36.13 kg/m2 Rai Alvarenga Other [facility] Other 02-03-2022 12:15-0400 Body weight 92.53 kg Rai Alvarenga Other [facility] Other 01-27-2022 09:00-0400 Body height 160.02 cm Rai Colette Other [facility] Other 01-27-2022 09:00-0400 Body mass index (BMI) [Ratio] 36.13 kg/m2 Rai Colette Other [facility] Other 01-27-2022 09:00-0400 Body weight 92.53 kg Rai Colette Other [facility] Other 10-31-2021 16:30-0400 Body height 160.02 cm Rai Alvarenga Other [facility] Other 10-31-2021 16:30-0400 Body mass index (BMI) [Ratio] 37.02 kg/m2 Rai Colette Other [facility] Other 10-31-2021 16:30-0400 Body weight 94.8 kg Rai Alvarenga Other [facility] Other Encounters Encounter Date Encounter Type Care Provider Facility Start: 01-07-2024 ambulatory Bryce Duran acility:[facility] Start: 12-19-2022 End: 12-20-2022 ambulatory KEL MONTGOMERY [...] Encounter for preprocedural laboratory examination [place] Start: 08-10-2022 ambulatory KEL VALENTINA Facility: [...] 02-03-2022 End: 02-03-2022 ambulatory Rai Alvarenga Other [facility] Other Start: 02-03-2022 Postop follow up vis it related to original px Rai Alvarenga [facility] Start: 01-27-2022 End: 01-27-2022 ambulatory Rai Alvarenga Other [facility] Other Start: 01-27-2022 Office outpatient vi sit 15 minutes Rai Alvarenga [facility] Start: 01-24-2022 End: 01-25-2022 ambulatory RAI ALVARENGA Facility:[facility] Start: 10-31-2021 End: 10-31-2021 ambulatory Rai Alvarenga Other [facility] Other Start: 10-31-2021 Office outpatient ne w 45 minutes Rai Alvarenga [facility] Immunizations Immunization Date Immunization Notes Care Provider Fa chaz 05-16-2021 influenza, injectabl e, quadrivalent, preservative free Rai Colette Other [facility] Other 01-01-2021 COVID-19 Vaccine Yari - Documentation Purposes Only Rai Colette Other [facility] Other Payers Date Payer Category Payer Unknown [id number] .. [id number] 1970 Unknown [id number] 0.1.879017.3.579.2.593 1970 Unknown [id number] .. 0.1.324514.3.579.2.593 1970 Unknown [id number] ..[id number] 0.1.453352.3.579.2.593 1970 Unknown [id number] .16.84 0.1.551687.3.579.2.593 1970 Unknown [id number] ..[id number] 0.1.675375.3.579.2.593 1970 Unknown [id number] ..[id number] 0.1.991531.3.579.2.593 1970 Unknown [id number] 2.16.84 0.1.206473.3.579.2.593 1970 Unknown [id number] 2.16.84 0.1.413657.3.579.2.593 1970 Unknown [id number] 2.16.84 0.1.160152.3.579.2.593 1970 Unknown [id number] 2.16.84 0.1.629105.3.579.2.593 1970 Unknown [id number] 2.16.84 0.1.635470.3.579.2.593 1970 Unknown [id number] 2.16.84 0.1.487026.3.579.2.593 1970 Unknown [id number] 2.16.84 0.1.318183.3.579.2.593 1970 Unknown [id number] 2.16.84 0.1.686850.3.579.2.593 1970 Unknown [id number] 2.16.84 0.1.410231.3.579.2.593 1970 Unknown [id number] 2.16.84 0.1.806214.3.579.2.593 1970 Unknown [id number] 2.16.84 0.1.880018.3.579.2.593 1970 Unknown [id number] 2.16.84 0.1.946101.3.579.2.593 1970 Unknown [id number] 2.16.84 0.1.857044.3.579.2.593 1970 Unknown [id number] 2.16.84 0.1.569861.3.579.2.593 1970 Unknown [id number] 2.16.84 0.1.635182.3.579.2.593 1959 Blue Cross Blue Shield [id number] [id number] 1959 Self-pay Unknown [id number] 2.16.8 40.1.253249.3.579.2.531 Social History Date Type Detail Facility Sex Assigned At [facility] Other Clinical Notes 10-31-2021 to 12-19-2022 Note [...] by: LARISSA CHOI Date: 2022-12-19 11:40 [facility] 10-19-2022 Note PROCEDURE: XR FOOT R [...] by: TERI KAY Date: 2022-10-19 08:47 [facility] 09-28-2022 Note PROCEDURE: XR FOOT R [...] by: BARBARA HERNANDEZ Date: 2022-09-28 16:30 [facility] 09-08-2022 Note PROCEDURE: XR FOOT R [...] authenticated by: TERI KAY Date: 2022-09-08 07:03 [facility] 08-15-2022 Note PROCEDURE: XR FOOT R [...] authenticated by: BARBARA HERNANDEZ Date: 2022-08-15 08:58 [facility] 08-15-2022 Note PROCEDURE: XR FOOT R [...] authenticated by: BARBARA HERNANDEZ Date: 2022-08-15 08:58 [facility] 06-15-2022 Note PROCEDURE: XR FOOT R T MIN 3 VIEWS COMPARISON: 09/08/2021 HISTORY: Pain in right foot FINDINGS: BONES:No acute fracture or dislocation. Stable [id number] degenerative change with joint space narrowing marginal osteophyte formation most significant in the midfoot SOFT TISSUES:Negative. No visible soft tissue swelling. EFFUSION:None visible. OTHER: Negative. IMPRESSION: Stable degenerative changes Electronically authenticated by: BARBARA HERNANDEZ Date: 2022-06-15 08:48 [facility] 02-03-2022 Evaluation note Encounter Date Diagnosis [...] - M65.331) Currently resolved. Continue to monitor [facility] Other 07-01-2022 Evaluation note* Encounter Date Diagnosis [...] as documented in the electronic medical record. 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 I have advised against the fpc use of narcotic pain medication. I have [...] as documented in the electronic medical record. [facility] Other History general Narrative - Reported* Type Description Date Medical History Hypertension Medical History chronic depression Medical History hearing loss Surgical History hysterectomy-partial 2016 [facility] Other Summary Purpose Family History No Family History Records FoundNo Family History Records FoundNo Family History Records Found Advance Directives No Advanced Directives Records FoundNo Advanced Directives Records FoundNo Advanced Directives Records Found Additional Source Comments REASON FOR VISIT (unrecogniz ed section and content) Bilateral Carpal TunnelRight Hip PainRecheck Left Wrist INFORMATION SOURCE (unrecogn ized section and content) DATE CREATED AUTHOR 02/17/2022 Dominic [facility] [facility] DATE CREATED AUTHOR AUTHOR'S ORGANIZ ATION 01/05/2023 [facility] DATE CREATED AUTHOR AUTHOR'S ORGANIZ ATION 03/28/2024 [facility] FOR RECORDS PERTAINING TO PATIENTS WHO [...] BE BASED ON THE PRIMARY CLINICAL RECORDS. [employer] [facility]. provides no warranty or guarantee of the accuracy or completeness of information in this document.
[2024-07-02 11:45] LABS: Estimated Average Glucose 117 mg/dL; Glycohemoglobin A1C 5.7 % (4.5-6.2)
[2024-07-02 12:11] LABS: Alanine Aminotransferase 23 U/L (14-59); Albumin Globulin Ratio 1.1; Albumin Level 3.9 g/dL (3.4-5.0); Alkaline Phosphatase 113 U/L (46-116); Anion Gap 13.4; Aspartate Amino Transferase 31 U/L (15-37); BUN Creatinine Ratio 11.5; Bilirubin Total 0.5 mg/dL (0.2-1.0); Calcium 9.2 mg/dL (8.5-10.1); Carbon Dioxide 29.7 mmol/L (21.0-32.0); Chloride 104 mmol/L (98-107); Chol HDL Ratio 3.8; Cholesterol 192 mg/dL (<=200); Estimated GFR (African America >60 (>=60 mL/min/1.73m^2); Estimated GFR (Non-African Ame 55 (>=60 mL/min/1.73m^2); Free T3 3.32 pg/mL (2.18-3.98); Globulin 3.6 g/dL; Glucose 83 mg/dL (74-106); HDL Cholesterol 51 mg/dL (40-60); LDL Cholesterol Calculated 124.2 mg/dL; Potassium 4.1 mmol/L (3.5-5.1); Sodium 143 mmol/L (136-145); Thyroid Stimulating Hormone 1.409 uIU/mL (0.358-3.740); Total Protein 7.5 g/dL (6.4-8.2); Triglycerides 84 mg/dL (<=150); VLDL CHOLESTEROL 16.8 mg/dL
[2024-07-03 04:07] LABS: Insulin 6.8 uIU/mL (2.6-24.9)
== END 2024-07-02 10:57 | disposition home or self-care (01) ==
PROVIDERS: PCP Nurse Practitioner Family; Visit Provider Nurse Practitioner Family
DX: Z00.00 Encounter for general adult medical examination without abnormal findings (principal)
CPT/HCPCS: 36415; 80053; 80061; 83036; 83525; 83540; 84436; 84443; 84481; 85025

== ENCOUNTER 2024-07-03 15:52 | Outpatient (REF) | payer OTHER, SELFPAY ==
--- OUTSIDE RECORDS SUMMARY | 2024-07-03 16:15 | XMS_ITS | CCD ---
Author Organization [facility] CliniSyal Care Team Providers Care Cementer Machine Name Role Phone Rai Alvarenga Unavailable KEL [...] [place] Consulting Unavailable EZIO ., MARY MIEK Consulting Unavailable ZAC II, JODI Consulting Unavailable [...] DR JASIEL Hutchinson Attending Unavaila ble [place] Primary Care Unavailable GRILLIS ., DR JASIEL [...] Facility (3 sources) Aspirin Drug Allergy Unknown [facility] NXTM Other (3 sources) Latex Propensity to adverse reactions Unknown [facility] NXTM Other (2 sources) Aspirin Drug Allergy [facility] Repository (2 sources) Latex Drug allergy (disorder) [facility] Repository (1 source) Aspirin Drug Allergy 2 [facility] Repository (1 source) Latex Drug allergy (disorder) 2 [facility] Repository Medications Current Medications Medication Drug [...] mouth every week Vitamin D3 1.25 MG (96978 UT) 1 capsule Orally once per week [...] by: Elizabeth INFANTE Date: 2022-11-10 23:57 Normal [facility] US KIDNEYS BLADDERon 023 US KIDNEYS BLADDER US KIDNEYS BLADDER EXAM DATE: 09/23/2022 6:34 AM MST COMPARISON: None available. INDICATION: Recurrent UTI. TECHNIQUE: Real-time ultrasound scanning of the kidneys and bladder was performed by the laser beam trim operator. Air Sealing Technician static images are submitted for review. FINDINGS: [...] NEEL WEBBER Date: 2022-09-23 14:49 Normal [facility] CBC AUTO DIFFon 08-15-2022 BASO # 0.0 103/ul Normal 0.0-0.1 [facility] Comment on above: Performed By: #### C BC #### [facility] Laboratory [address] [address] [address] Arianna Hamlin Basophils/100 WBC (Bld) 0.3 % Normal 0.2-2.0 [facility] Comment on above: Performed By: #### C BC #### [facility] [address] [address] [address] Arianna Hamlin EO # 0.0 103/ul Normal 0.0-0.7 [facility] Comment on above: Performed By: #### C BC #### [facility] [address] [address] [address] Arianna Hamlin Eosinophils/100 WBC (Bld) 0.1 % Critically low 0.9-7.0 [facility] Comment on above: Performed By: #### C BC #### [facility] [address] [address] [address] Arianna Hamlin Erythrocyte distribution width (RBC) [Ratio] 12.2 % Normal 11.0-15.0 [facility] Comment on above: Performed By: #### C BC #### [facility] [address] [address] [address] Arianna Hamlin Hematocrit (Bld) [Volume fraction] 35.9 % Critically low 36.0-48.0 [facility] Comment on above: Performed By: #### C BC #### [facility] [address] [place] [address] Dr. Arianna Hamlin Hemoglobin (Bld) [Mass/Vol] 12.0 g/dL Normal 12.0-16.0 [facility] Comment on above: Performed By: #### C BC #### [facility] [address] [place] [address] Dr. Arianna Hamlin IG # 0.02 10e3/ul Normal 0.00-0.03 [facility] Comment on above: Performed By: #### C BC #### [facility] [address] [place] [address] Dr. Arianna Hamlin IG % 0.3 % Normal 0.0-0.5 [facility] Comment on above: Performed By: #### C BC #### [facility] [address] [place] [address] Dr. Arianna Hamlin LYMPH # 1.8 103/ul Normal 1.2-3.8 [facility] Comment on above: Performed By: #### C BC #### [facility] [address] [place] [address] Dr. Arianna Hamlin Lymphocytes/100 WBC (Bld) 22.8 % Normal 20.5-60.0 [facility] Comment on above: Performed By: #### C BC #### [facility] [address] [place] [address] Dr. Arianna Hamlin MANUAL DIFF REQ NO Normal [facility] Comment on above: Performed By: #### C BC #### [facility] [address] [place] [address] Dr. Arianna Hamlin MCH (RBC) [Entitic mass] 27.8 pg Normal 26.7-34.0 [facility] Comment on above: Performed By: #### C BC #### [facility] [address] [address] [address] Arianna Hamlin MCHC (RBC) [Mass/Vol] 33.4 g/dL Normal 29.9-35.2 [facility] Comment on above: Performed By: #### C BC #### [facility] [address] [address] [address] Arianna Hamlin MCV (RBC) [Entitic vol] 83.1 fL Normal 81.0-99.0 [facility] Comment on above: Performed By: #### C BC #### [facility] [address] [address] [address] Arianna Hamlin MONO # 0.9 103/ul Critically high 0.3-0.8 [facility] Comment on above: Performed By: #### C BC #### [facility] [address] [place] [address] Dr. Arianna Hamlin Monocytes/100 WBC (Bld) 10.8 % Normal 1.7-12.0 [facility] Comment on above: Performed By: #### C BC #### [facility] [address] [address] [address] Arianna Hamlin NEUT # 5.2 103/ul Normal 1.4-6.5 [facility] Comment on above: Performed By: #### C BC #### [facility] [address] [place] [address] Dr. Arianna Hamlin Neutrophils/100 WBC (Bld) 65.7 % Normal 43.0-75.0 [facility] Comment on above: Performed By: #### C BC #### [facility] [address] [address] [address] Arianna Hamlin Platelet mean volume (Bld) [Entitic vol] 10.2 fL Normal 9.5-13.5 [facility] Comment on above: Performed By: #### C BC #### [facility] [address] [address] [address] Arianna Hamlin PLT 243 103/ul Normal 150-450 [facility] Comment on above: Performed By: #### C BC #### [facility] [address] [place] [address] Dr. Arianna Hamlin RBC 4.32 106/ul Normal 4.20-5.40 [facility] Comment on above: Performed By: #### C BC #### [facility] [address] [place] [address] Dr. Arianna Hamlin WBC 7.9 103/ul Normal 4.0-11.0 [facility] Comment on above: Performed By: #### C BC #### [facility] [address] [place] [address] Dr. Arianna Hamlin PROF CHEM 8 (BAS METB)on Anion gap [Moles/Vol] 10.8 mmol/L Normal [facility] Comment on above: Performed By: #### B MP #### [facility] [address] [place] [address] Dr. Arianna Hamlin Calcium [Mass/Vol] 9.0 mg/dL Normal 8.5-10.1 [facility] Comment on above: Performed By: #### B MP #### [facility] [address] [place] [address] Dr. Arianna Hamlin Chloride [Moles/Vol] 101 mmol/L Normal 98-107 [facility] Comment on above: Performed By: #### B MP #### [facility] [address] [place] [address] Dr. Arianna Hamlin CO2 [Moles/Vol] 30.8 mmol/L Normal 21.0-32.0 [facility] Comment on above: Performed By: #### B MP #### [facility] [address] [place] [address] Dr. Arianna Hamlin Creatinine [Mass/Vol] 0.79 mg/dL Normal 0.55-1.02 [facility] Comment on above: Performed By: #### B MP #### [facility] [address] [place] [address] Dr. Arianna Hamlin EGFR-AF CROATIAN >60 Normal >=60 [facility] Comment on above: Performed By: #### B MP #### [facility] [address] [place] [address] Dr. Arianna Hamlin EGFR-NON AF CROATIAN >60 Normal >=60 [facility] Comment on above: Performed By: #### B MP #### [facility] [address] [address] [address] Arianna Hamlin Glucose [Mass/Vol] 110 mg/dL Critically high 74-106 [facility] Comment on above: Performed By: #### B MP #### [facility] [address] [address] [address] Arianna Hamlin Potassium [Moles/Vol] 3.6 mmol/L Normal 3.5-5.1 [facility] Comment on above: Performed By: #### B MP #### [facility] [address] [address] [address] Arianna Hamlin Sodium [Moles/Vol] 139 mmol/L Normal 136-145 [facility] Comment on above: Performed By: #### B MP #### [facility] [address] [address] [address] Arianna Hamlin Urea nitrogen [Mass/Vol] 8.0 mg/dL Normal 7.0-18.0 [facility] Comment on above: Performed By: #### B MP #### [facility] [address] [address] [address] Arianna Hamlin Urea nitrogen/Creatinine [Mass ratio] 10.1 mg/mg Normal [facility] Comment on above: Performed By: #### B MP #### [facility] [address] [address] [address] Arianna Hamlin UA RANDOMon 08-15-2022 Bilirubin Ql (U) Negative Normal NEGATIVE [facility] Comment on above: Performed By: #### C BC #### [facility] [address] [address] [address] Arianna Hamlin Clarity (U) CLEAR Normal CLEAR [facility] Comment on above: Performed By: #### C BC #### [facility] [address] [address] [address] Arianna Hamlin Glucose Ql (U) Negative Normal NEGATIVE [facility] Comment on above: Performed By: #### C BC #### [facility] [address] [place] [address] Dr. Arianna Hamlin Hemoglobin Ql (U) Negative Normal NEGATIVE [facility] Comment on above: Performed By: #### C BC #### [facility] [address] [address] [address] Arianna Hamlin Ketones Ql (U) Negative Normal NEGATIVE [facility] Comment on above: Performed By: #### C BC #### [facility] [address] [address] [address] Arianna Hamlin LEUKOCYTES MODERATE Abnormal NEGATIVE [facility] Comment on above: Performed By: #### C BC #### [facility] [address] [place] [address] Dr. Arianna Hamlin Nitrite Ql (U) Negative Normal NEGATIVE [facility] Comment on above: Performed By: #### C BC #### [facility] [address] [place] [address] Dr. Arianna Hamlin pH (U) 7.0 [pH] Normal 5-9 [facility] Comment on above: Performed By: #### C BC #### [facility] [address] [place] [address] Dr. Arianna Hamlin SPEC GRAVITY 1.010 Normal 1.005-<=1.025 [facility] Comment on above: Performed By: #### C BC #### [facility] [address] [place] [address] Dr. Arianna Hamlin UA PROTEIN Negative Normal NEGATIVE/ TRACE [facility] Comment on above: Performed By: #### C BC #### [facility] [address] [place] [address] Dr. Arianna Hmalin Urobilinogen Qn (U) 0.2 {Ayden'U}/dL Normal 0.2 - 1. 0 [facility] Comment on above: Performed By: #### C BC #### [facility] [address] [place] [address] Dr. Arianna Hamlin XR FOOT RT 2Von [...] BARBARA HERNANDEZ Date: 2022-08-15 08:59 Normal [facility] POINT OF CARE GLUCOSEon 07-30 Glucose [Mass/Vol] 138 mg/dL Critically high 74-106 [facility] Comment on above: Performed By: #### P OCGLUC #### [facility] [address] [place] [address] Dr. Arianna Hamlin Glucose [Mass/Vol] 94 mg/dL Normal 74-106 [facility] Comment on above: Performed By: #### P OCGLUC #### [facility] [address] [place] [address] Dr. Arianna Hamlin CBC AUTO DIFFon 08-08-2022 BASO # 0.0 103/ul Normal 0.0-0.1 [facility] Comment on above: Performed By: #### C BC #### [facility] [address] [place] [address] Dr. Arianna Hamlin Basophils/100 WBC (Bld) 0.7 % Normal 0.2-2.0 [facility] Comment on above: Performed By: #### C BC #### [facility] [address] [place] [address] Dr. Arianna Hamlin EO # 0.1 103/ul Normal 0.0-0.7 [facility] Comment on above: Performed By: #### C BC #### [facility] [address] [place] [address] Dr. Arianna Hamlin Eosinophils/100 WBC (Bld) 1.3 % Normal 0.9-7.0 [facility] Comment on above: Performed By: #### C BC #### [facility] [address] [place] [address] Dr. Arianna Hamlin Erythrocyte distribution width (RBC) [Ratio] 12.3 % Normal 11.0-15.0 [facility] Comment on above: Performed By: #### C BC #### [facility] [address] [place] [address] Dr. Arianna Hamiln Hematocrit (Bld) [Volume fraction] 38.4 % Normal 36.0-48.0 [facility] Comment on above: Performed By: #### C BC #### [facility] [address] [place] [address] Dr. Arianna Hamlin Hemoglobin (Bld) [Mass/Vol] 13.2 g/dL Normal 12.0-16.0 [facility] Comment on above: Performed By: #### C BC #### [facility] [address] [place] [address] Dr. Arianna Hamlin IG # 0.01 10e3/ul Normal 0.00-0.03 [facility] Comment on above: Performed By: #### C BC #### [facility] [address] [place] [address] Dr. Arianna Hamlin IG % 0.2 % Normal 0.0-0.5 [facility] Comment on above: Performed By: #### C BC #### [facility] [address] [place] [address] Dr. Arianna Hamlin LYMPH # 1.8 103/ul Normal 1.2-3.8 [facility] Comment on above: Performed By: #### C BC #### [facility] [address] [place] [address] Dr. Arianna Hamlin Lymphocytes/100 WBC (Bld) 30.8 % Normal 20.5-60.0 [facility] Comment on above: Performed By: #### C BC #### [facility] [address] [place] [address] Dr. Arianna Hamlin MANUAL DIFF REQ NO Normal [facility] Comment on above: Performed By: #### C BC #### [facility] [address] [place] [address] Dr. Arianna Hamlin MCH (RBC) [Entitic mass] 27.7 pg Normal 26.7-34.0 [facility] Comment on above: Performed By: #### C BC #### [facility] [address] [address] [address] Arianna Hamlin MCHC (RBC) [Mass/Vol] 34.4 g/dL Normal 29.9-35.2 [facility] Comment on above: Performed By: #### C BC #### [facility] [address] [address] [address] Arianna Hamlin MCV (RBC) [Entitic vol] 80.7 fL Critically low 81.0-99.0 [facility] Comment on above: Performed By: #### C BC #### [facility] [address] [place] [address] Dr. Arianna Hamlin MONO # 0.4 103/ul Normal 0.3-0.8 [facility] Comment on above: Performed By: #### C BC #### [facility] [address] [place] [address] Dr. Arianna Hamlin Monocytes/100 WBC (Bld) 7.1 % Normal 1.7-12.0 [facility] Comment on above: Performed By: #### C BC #### [facility] [address] [place] [address] Dr. Arianna Hamlin NEUT # 3.6 103/ul Normal 1.4-6.5 [facility] Comment on above: Performed By: #### C BC #### [facility] [address] [place] [address] Dr. Arianna Hamlin Neutrophils/100 WBC (Bld) 59.9 % Normal 43.0-75.0 [facility] Comment on above: Performed By: #### C BC #### [facility] [address] [place] [address] Dr. Arianna Hamlin Platelet mean volume (Bld) [Entitic vol] 9.5 fL Normal 9.5-13.5 [facility] Comment on above: Performed By: #### C BC #### [facility] [address] [place] [address] Dr. Arianna Hamlin PLT 248 103/ul Normal 150-450 [facility] Comment on above: Performed By: #### C BC #### [facility] [address] [place] [address] Dr. Arianna Hamlin RBC 4.76 106/ul Normal 4.20-5.40 [facility] Comment on above: Performed By: #### C BC #### [facility] [address] [place] [address] Dr. Arianna Hamlin WBC 5.9 103/ul Normal 4.0-11.0 [facility] Comment on above: Performed By: #### C BC #### [facility] [address] [place] [address] Dr. Arianna Hamlin Covid-19 PCR (CVDTB)on 07-30 SARS-CoV-2 (COVID-19) RNA RICHARD+probe Ql (Unsp spec) Not detected Normal NOT DETECTED [facility] Comment on above: Result Comment: This test is not yet approved or cleared by the [place] FDA. When there are no FDA-approved or cleared tests available, and other criteria are met, FDA can make tests available under an emergency access mechanism called an Emergency Use Authorization (EUA). The EUA for this test is supported by the [place] of Health and Human Service's (HHS's) declaration [...] SARS-CoV-2. Performed By: #### C VDTBH #### [facility] [address] [place] [address] Dr. Arianna Hamlin PROF CHEM 8 (BAS METB)on Anion gap [Moles/Vol] 10.1 mmol/L Normal [facility] Comment on above: Performed By: #### B MP #### [facility] [address] [place] [address] Dr. Arianna Hamlin Calcium [Mass/Vol] 9.2 mg/dL Normal 8.5-10.1 [facility] Comment on above: Performed By: #### B MP #### [facility] [address] [address] [address] Arianna Hamlin Chloride [Moles/Vol] 103 mmol/L Normal 98-107 [facility] Comment on above: Performed By: #### B MP #### [facility] [address] [address] [address] Arianna Hamlin CO2 [Moles/Vol] 30.7 mmol/L Normal 21.0-32.0 [facility] Comment on above: Performed By: #### B MP #### [facility] [address] [place] [address] Dr. Arianna Hamlin Creatinine [Mass/Vol] 0.86 mg/dL Normal 0.55-1.02 [facility] Comment on above: Performed By: #### B MP #### [facility] [address] [address] [address] Arianna Hamlin EGFR-AF CROATIAN >60 Normal >=60 [facility] Comment on above: Performed By: #### B MP #### [facility] [address] [place] [address] Dr. Arianna Hamlin EGFR-NON AF CROATIAN >60 Normal >=60 [facility] Comment on above: Performed By: #### B MP #### [facility] [address] [place] [address] Dr. Arianna Hamlin Glucose [Mass/Vol] 77 mg/dL Normal 74-106 [facility] Comment on above: Performed By: #### B MP #### [facility] [address] [address] [address] Arianna Hamlin Potassium [Moles/Vol] 3.8 mmol/L Normal 3.5-5.1 [facility] Comment on above: Performed By: #### B MP #### [facility] [address] [place] [address] Dr. Arianna Hamlin Sodium [Moles/Vol] 140 mmol/L Normal 136-145 [facility] Comment on above: Performed By: #### B MP #### [facility] [address] [address] [address] Arianna Hamlin Urea nitrogen [Mass/Vol] 8.0 mg/dL Normal 7.0-18.0 [facility] Comment on above: Performed By: #### B MP #### [facility] [address] [id number] Arianna Hamlin Urea nitrogen/Creatinine [Mass ratio] 9.3 mg/mg Normal [facility] Comment on above: Performed By: #### B MP #### [facility] [address] [address] [address] Arianna Hamlin Covid-19 PCR ([facility])on SARS-CoV-2 (COVID-19) RNA RICHARD+probe Ql (Unsp spec) Not detected Normal NOT DETECTED [facility] Comment on above: Result Comment: This test is not yet approved or cleared by the [place] FDA. When there are no FDA-approved or cleared tests available, and other criteria are met, FDA can make tests available under an emergency access mechanism called an Emergency Use Authorization (EUA). The EUA for this test is supported by the [place] of Health and Human Service's (HHS's) declaration [...] SARS-CoV-2. Performed By: #### B MP #### [facility] [address] [place] [address] Dr. Arianna Hamlin MRI ANKLE RT WO [...] DALTON ALVARENGA Date: 2022-06-24 12:09 Normal [facility] [place] H PYLORI TISSUEon 05-17-2022 H PYL TISSUE, UREASE Negative Normal NEGATIVE [facility] [place] Comment on above: Performed By: #### B MP #### [facility] [place] [facility] [address] [place], [place] [address] Dr. Arianna Hamlin Covid-19 PCR ([facility])on 04-29 SARS-CoV-2 (COVID-19) RNA RICHARD+probe Ql (Unsp spec) Not detected Normal NOT DETECTED [facility] [place] Comment on above: Result Comment: This test is not yet approved or cleared by the [place] FDA. When there are no FDA-approved or cleared tests available, and other criteria are met, FDA can make tests available under an emergency access mechanism called an Emergency Use Authorization (EUA). The EUA for this test is supported by the [place] of Health and Human Service's (HHS's) declaration [...] SARS-CoV-2. Performed By: #### C VDTBH #### [facility] [place] [facility] [address] [place], [place] [address] Dr. Arianna Hamlin FLORINA by IFAon 05-11-2022 Antinuclear Antibodies, IFA Negative Normal [facility] [place] Comment on above: Result Comment: Nega tive <1:80 Borderline 1:80 Positive >1:80 ICAP nomenclature: AC-0 For more information about Hep-2 cell patterns use ANApatterns.org, the official website for the International Consensus on Antinuclear Antibody (FLORINA) Patterns (ICAP). Performed By: #### B MP #### [facility] [place] [facility] [address] [place] [address] Dr. Arianna Hamlin CULTURE URINEon 05-11-2022 CULTURE [...] Trimethoprim/Sulfameth oxazole <=20 S C Normal [facility] [place] Comment on above: Performed By: #### C BC #### [facility] [place] [facility] [address] [place] [address] Dr. Arianna Hamlin ANTISTREPTOLYSIN O AB (ASO)o n 05-10-2022 Antistreptolysin O Ab 45.8 IU/mL Normal 0.0-200.0 [facility] Comment on above: Performed By: #### C BC #### [facility] [place] [facility] [address] [place] [address] Dr. Arianna Hamlin RHEUMATOID FACTORon 05-10-20 RA Latex Turbid. <10.0 Normal <14.0 [facility] Comment on above: Performed By: #### B MP #### [facility] [place] [facility] [address] [place] [address] Dr. Arianna Hamlin CRPon 05-08-2022 CRP [Mass/Vol] mg/L Normal <=1.[address] [facility] Comment on above: Performed By: #### C BC #### [facility] [place] [facility] [address] [place] [address] Dr. Arianna Hamlin UA RANDOM W/MICROSCOPICon BACTERIA LARGE Abnormal NONE SEEN [facility] [place] Comment on above: Performed By: #### U AMIC #### [facility] [place] [facility] [address] [place] [address] [address] Arianna Hamlin Bilirubin Ql (U) Negative Normal NEGATIVE [facility] Comment on above: Performed By: #### U AMIC #### [facility] [place] [facility] [address] [address] [address] Arianna Hamlin CAST NONE SEEN Normal NONE SEEN [facility] [place] Comment on above: Performed By: #### U AMIC #### [facility] [place] [facility] [address] [address] [address] Arianna Hamlin Clarity (U) CLEAR Normal CLEAR [facility] [place] Comment on above: Performed By: #### U AMIC #### [facility] [place] [facility] [address] [place] [address] Dr. Arianna Hamlin Color (U) LT. YELLOW Normal YELLOW [facility] [place] Comment on above: Performed By: #### U AMIC #### [facility] [place] [facility] [address] [address] [address] Arianna Hamlin Crystals LM Nom (Urine sed) NONE SEEN Normal NONE SEEN [facility] [place] Comment on above: Performed By: #### U AMIC #### [facility] [place] [facility] [address] [place] [address] Dr. Arianna Hamlin Epithelial cells LM Ql (Urine sed) FEW Abnormal NONE SEEN /RARE [facility] [place] Comment on above: Performed By: #### U AMIC #### [facility] [place] [facility] [address] [address] [address] Arianna Hamlin Glucose Ql (U) Negative Normal NEGATIVE [facility] Comment on above: Performed By: #### U AMIC #### [facility] [place] [facility] [address] [address] [address] Arianna Hamlin Hemoglobin Ql (U) SMALL Abnormal NEGATIVE [facility] Comment on above: Performed By: #### U AMIC #### [facility] [place] [facility] [address] [place] [address] Dr. Arianna Hamlin Ketones Ql (U) TRACE Abnormal NEGATIVE [facility] Comment on above: Performed By: #### U AMIC #### [facility] [place] [facility] [address] [address] [address] Arianna Hamlin LEUKOCYTES MODERATE Abnormal NEGATIVE [facility] Comment on above: Performed By: #### U AMIC #### [facility] [place] [facility] [address] [address] [address] Arianna Hamlin MUCOUS NONE SEEN Normal NONE SEEN [facility] [place] Comment on above: Performed By: #### U AMIC #### [facility] [place] [facility] [address] [address] [address] Arianna Hamlin Nitrite Ql (U) Positive Abnormal NEGATIVE [facility] Comment on above: Performed By: #### U AMIC #### [facility] [place] [facility] [address] [address] [address] Arianna Hamlin pH (U) 6.0 [pH] Normal 5-9 [facility] Comment on above: Performed By: #### U AMIC #### [facility] [place] [facility] [address] [place] [address] Dr. Arianna Hamlin RBC 2-5 Abnormal 0-2 [facility] Comment on above: Performed By: #### U AMIC #### [facility] [place] [facility] [address] [address] [address] Arianna Hamlin SPEC GRAVITY >=1.030 Abnormal 1.005-<=1.025 [facility] Comment on above: Performed By: #### U AMIC #### [facility] [place] [facility] [address] [place] [address] [address] Arianna Hamlin UA PROTEIN Negative Normal NEGATIVE/ TRACE [facility] [place] Comment on above: Performed By: #### U AMIC #### [facility] [place] [facility] [address] [place] [address] Dr. Arianna Hamlin Urobilinogen Qn (U) 0.2 {Ayden'U}/dL Normal 0.2 - 1. 0 [facility] Comment on above: Performed By: #### U AMIC #### [facility] [place] [facility] [address] [place] [address] Dr. Arianna Hamlin WBC 20-50 Abnormal NONE SEEN [facility] [place] Comment on above: Performed By: #### U AMIC #### [facility] [place] [facility] [address] [place] [address] Dr. Arianna Hamlin URIC ACID SERUMon 05-08-2022 Urate [Mass/Vol] 4.1 mg/dL Normal 2.6-6.0 [facility] Comment on above: Performed By: #### U BETY, CRP #### [facility] [place] [facility] [address] [place] [address] Dr. Arianna Hamlin CBC AUTO DIFFon 01-24-2022 BASO # 0.1 103/ul Normal 0.0-0.1 [facility] Comment on above: Performed By: #### C BC #### [facility] [place] [facility] [address] [place] [address] Dr. Arianna Hamlin Basophils/100 WBC (Bld) 0.9 % Normal 0.2-2.0 [facility] Comment on above: Performed By: #### C BC #### [facility] [place] [facility] [address] [place] [address] Dr. Arianna Hamlin EO # 0.1 103/ul Normal 0.0-0.7 [facility] Comment on above: Performed By: #### C BC #### [facility] [place] [facility] [address] [place] [address] Dr. Arianna Hamlin Eosinophils/100 WBC (Bld) 2.2 % Normal 0.9-7.0 [facility] Comment on above: Performed By: #### C BC #### [facility] [place] [facility] [address] [place] [address] Dr. Arianna Hamlin Erythrocyte distribution width (RBC) [Ratio] 12.7 % Normal 11.0-15.0 [facility] Comment on above: Performed By: #### C BC #### [facility] [place] [facility] [address] [place] [address] Dr. Arianna Hamlin Hematocrit (Bld) [Volume fraction] 42.6 % Normal 36.0-48.0 [facility] Comment on above: Performed By: #### C BC #### [facility] [place] [facility] [address] [place] [address] Dr. Arianna Hamlin Hemoglobin (Bld) [Mass/Vol] 14.2 g/dL Normal 12.0-16.0 [facility] Comment on above: Performed By: #### C BC #### [facility] [place] [facility] [address] [place] [address] Dr. Arianna Hamlin IG # 0.02 10e3/ul Normal 0.00-0.03 [facility] Comment on above: Performed By: #### C BC #### [facility] [place] [facility] [address] [place] [address] Dr. Arianna Hamlin IG % 0.4 % Normal 0.0-0.5 [facility] Comment on above: Performed By: #### C BC #### [facility] [place] [facility] [address] [place] [address] Dr. Arianna Hamlin LYMPH # 2.0 103/ul Normal 1.2-3.8 [facility] Comment on above: Performed By: #### C BC #### [facility] [place] [facility] [address] [place] [address] Dr. Arianna Hamlin Lymphocytes/100 WBC (Bld) 38.1 % Normal 20.5-60.0 [facility] Comment on above: Performed By: #### C BC #### [facility] [place] [facility] [address] [place] [address] Dr. Arianna Hamlin MANUAL DIFF REQ NO Normal [facility] Comment on above: Performed By: #### C BC #### [facility] [place] [facility] [address] [place] [address] Dr. Arianna Hamlin MCH (RBC) [Entitic mass] 28.1 pg Normal 26.7-34.0 [facility] Comment on above: Performed By: #### C BC #### [facility] [place] [facility] [address] [place] [address] Dr. Arianna Hamlin MCHC (RBC) [Mass/Vol] 33.3 g/dL Normal 29.9-35.2 [facility] Comment on above: Performed By: #### C BC #### [facility] [place] [facility] [address] [place] [address] Dr. Arianna Hamlin MCV (RBC) [Entitic vol] 84.4 fL Normal 81.0-99.0 [facility] Comment on above: Performed By: #### C BC #### [facility] [place] [facility] [address] [place] [address] Dr. Arianna Hamlin MONO # 0.4 103/ul Normal 0.3-0.8 [facility] Comment on above: Performed By: #### C BC #### [facility] [place] [facility] [address] [place] [address] Dr. Arianna Hamlin Monocytes/100 WBC (Bld) 7.3 % Normal 1.7-12.0 [facility] Comment on above: Performed By: #### C BC #### [facility] [place] [facility] [address] [place] [address] Dr. Arianna Hamlin NEUT # 2.7 103/ul Normal 1.4-6.5 [facility] Comment on above: Performed By: #### C BC #### [facility] [place] [facility] [address] [place] [address] Dr. Arianna Hamlin Neutrophils/100 WBC (Bld) 51.1 % Normal 43.0-75.0 [facility] Comment on above: Performed By: #### C BC #### [facility] [place] [facility] [address] [place] [address] Dr. Arianna Hamlin Platelet mean volume (Bld) [Entitic vol] 9.8 fL Normal 9.5-13.5 [facility] Comment on above: Performed By: #### C BC #### [facility] [place] [facility] [address] [place] [address] Dr. Arianna Hamlin PLT 276 103/ul Normal 150-450 [facility] [place] Comment on above: Performed By: #### C BC #### [facility] [place] [facility] [address] [place] [address] Dr. Arianna Hamlin RBC 5.05 106/ul Normal 4.20-5.40 [facility] [place] Comment on above: Performed By: #### C BC #### [facility] [place] [facility] [address] [place] [address] Dr. Arianna Hamlin WBC 5.4 103/ul Normal 4.0-11.0 [facility] [place] Comment on above: Performed By: #### C BC #### [facility] [place] [facility] [address] [address] [address] Arianna Hamlin PROF 14(COMP METB)on 022 Albumin [Mass/Vol] 4.2 g/dL Normal 3.4-5.0 [facility] Comment on above: Performed By: #### B MP #### [facility] [place] [facility] [address] [place] [address] Dr. Arianna Hamlin Albumin/Globulin [Mass ratio] 1.3 {ratio} Normal [facility] Comment on above: Performed By: #### B MP #### [facility] [place] [facility] [address] [place] [address] Dr. Arianna Hamlin ALP [Catalytic activity/Vol] 92 U/L Normal 46-116 [facility] Comment on above: Performed By: #### B MP #### [facility] [place] [facility] [address] [place] [address] Dr. Arianna Hamlin ALT [Catalytic activity/Vol] 25 U/L Normal 14-59 [facility] Comment on above: Performed By: #### B MP #### [facility] [place] [facility] [address] [place] [address] Dr. Arianna Hamlin Anion gap [Moles/Vol] 10.4 mmol/L Normal [facility] Comment on above: Performed By: #### B MP #### [facility] [place] [facility] [address] [place] [address] Dr. Arianna Hamlin AST [Catalytic activity/Vol] 20 U/L Normal 15-37 [facility] Comment on above: Performed By: #### B MP #### [facility] [place] [facility] [address] [place] [address] Dr. Arianna Hamlin Bilirubin [Mass/Vol] 0.2 mg/dL Normal 0.2-1.0 [facility] Comment on above: Performed By: #### B MP #### [facility] [place] [facility] [address] [place] [address] Dr. Arianna Hamlin Calcium [Mass/Vol] 9.0 mg/dL Normal 8.5-10.1 [facility] Comment on above: Performed By: #### B MP #### [facility] [place] [facility] [address] [place] [address] Dr. Arianna Hamlin Chloride [Moles/Vol] 103 mmol/L Normal 98-107 [facility] [place] Comment on above: Performed By: #### B MP #### [facility] [place] [facility] [address] [address] [address] Arianna Hamlin CO2 [Moles/Vol] 29.7 mmol/L Normal 21.0-32.0 [facility] Comment on above: Performed By: #### B MP #### [facility] [place] [facility] [address] [address] [address] Arianna Hamlin Creatinine [Mass/Vol] 0.87 mg/dL Normal 0.55-1.02 [facility] [place] Comment on above: Performed By: #### B MP #### [facility] [place] [facility] [address] [place] [address] Dr. Arianna Hamlin EGFR-AF CROATIAN >60 Normal >=60 [facility] Comment on above: Performed By: #### B MP #### [facility] [place] [facility] [address] [address] [address] Arianna Hamlin EGFR-NON AF CROATIAN >60 Normal >=60 [facility] [place] Comment on above: Performed By: #### B MP #### [facility] [place] [facility] [address] [place] [address] Dr. Arianna Hamlin Globulin (S) [Mass/Vol] 3.3 g/dL Normal [facility] Comment on above: Performed By: #### B MP #### [facility] [place] [facility] [address] [address] [address] Arianna Hamlin Glucose [Mass/Vol] 99 mg/dL Normal 74-106 [facility] Comment on above: Performed By: #### B MP #### [facility] [place] [facility] [address] [address] [address] Arianna Hamlin Potassium [Moles/Vol] 4.1 mmol/L Normal 3.5-5.1 [facility] [place] Comment on above: Performed By: #### B MP #### [facility] [place] [facility] [address] [place] [address] Dr. Arianna Hamlin Protein [Mass/Vol] 7.5 g/dL Normal 6.4-8.2 [facility] Comment on above: Performed By: #### B MP #### [facility] [place] [facility] [address] [address] [address] Arianna Hamlin Sodium [Moles/Vol] 139 mmol/L Normal 136-145 [facility] Comment on above: Performed By: #### B MP #### [facility] [place] [facility] [address] [address] [address] Arianna Hamlin Urea nitrogen [Mass/Vol] 11.0 mg/dL Normal 7.0-18.0 [facility] Comment on above: Performed By: #### B MP #### [facility] [place] [facility] [address] [address] [address] Arianna Hamlin Urea nitrogen/Creatinine [Mass ratio] 12.6 mg/mg Normal [facility] Comment on above: Performed By: #### B MP #### [facility] [place] [facility] [address] [address] [address] Arianna Hamlin Provider Letteron 09-06-2021 Provider Letter September 06, 2021 SIMIN CARO [address] [place] [id number] SIMIN CARO 1970 Dear Simin_ , We have been trying to reach you with no success. It is important that you return our call regarding your referral from Melinda Rodriguez upon receiving this letter. Also, at the time of your call, please provide us with your correct phone number. . Thank you for your prompt attention to this matter. Sincerely, General Surgery [phone] Normal [facility] Physician Referralon 022 Physician Referral [phone] [id number] Normal [facility] Vital Signs Date Time Vital Sign Value Performing Clinician Clarence cannon 02-03-2022 12:15-0400 Body height 160.02 cm Rai Alvarenga Other [facility] Other 02-03-2022 12:15-0400 Body mass index (BMI) [Ratio] 36.13 kg/m2 Rai Alvarenga Other [facility] Other 02-03-2022 12:15-0400 Body weight 92.53 kg Rai Alvarenga Other [facility] Other 01-27-2022 09:00-0400 Body height 160.02 cm Rai Colette Other [facility] Other 01-27-2022 09:00-0400 Body mass index (BMI) [Ratio] 36.13 kg/m2 Rai Colette Other [facility] Other 01-27-2022 09:00-0400 Body weight 92.53 kg Rai Colette Other [facility] Other 10-31-2021 16:30-0400 Body height 160.02 cm Rai Alvarenga Other [facility] Other 10-31-2021 16:30-0400 Body mass index (BMI) [Ratio] 37.02 kg/m2 Rai Colette Other [facility] Other 10-31-2021 16:30-0400 Body weight 94.8 kg Rai Alvarenga Other [facility] Other Encounters Encounter Date Encounter Type Care Provider Facility Start: 01-07-2024 ambulatory Bryce Duran acility:[facility] Start: 12-19-2022 End: 12-20-2022 ambulatory KEL [...] Encounter for preprocedural laboratory examination LOS VENTURA [facility] Start: 08-10-2022 ambulatory KEL VALENTINA [...] 02-03-2022 End: 02-03-2022 ambulatory Rai Alvarenga Other [facility] Other Start: 02-03-2022 Postop follow up vis it related to original px Rai Alvarenga [facility] Start: 01-27-2022 End: 01-27-2022 ambulatory Rai Alvarenga Other [facility] Other Start: 01-27-2022 Office outpatient vi sit 15 minutes Rai Alvarenga [facility] Start: 01-24-2022 End: 01-25-2022 ambulatory RAI ALVARENGA Facility:[facility] Start: 10-31-2021 End: 10-31-2021 ambulatory Rai Alvarenga Other [facility] Other Start: 10-31-2021 Office outpatient ne w 45 minutes Rai Alvarenga [facility] Immunizations Immunization Date Immunization Notes Care Provider Fa chaz 05-16-2021 influenza, injectabl e, quadrivalent, preservative free Rai Colette Other [facility] Other 01-01-2021 COVID-19 Vaccine Yari - Documentation Purposes Only Rai Colette Other [facility] Other Payers Date Payer Category Payer Unknown [id number] .. [id number] 1970 Unknown [id number] 1970 Unknown [id number] .. 0.1.465149.3.579.2.593 1970 Unknown [id number] ..[id number] 0.1.941201.3.579.2.593 1970 Unknown [id number] .16.84 0.1.861102.3.579.2.593 1970 Unknown [id number] ..[id number] 0.1.902707.3.579.2.593 1970 Unknown [id number] ..[id number] 0.1.251008.3.579.2.593 1970 Unknown [id number] 2.16.84 0.1.973190.3.579.2.593 1970 Unknown [id number] 2.16.84 0.1.291147.3.579.2.593 1970 Unknown [id number] 2.16.84 0.1.710813.3.579.2.593 1970 Unknown [id number] 2.16.84 0.1.370906.3.579.2.593 1970 Unknown [id number] 2.16.84 0.1.791756.3.579.2.593 1970 Unknown [id number] 2.16.84 0.1.291789.3.579.2.593 1970 Unknown [id number] 2.16.84 0.1.856543.3.579.2.593 1970 Unknown [id number] 2.16.84 0.1.930804.3.579.2.593 1970 Unknown [id number] 2.16.84 0.1.573990.3.579.2.593 1970 Unknown [id number] 2.16.84 0.1.266255.3.579.2.593 1970 Unknown [id number] 2.16.84 0.1.047297.3.579.2.593 1970 Unknown [id number] 2.16.84 0.1.417326.3.579.2.593 1970 Unknown [id number] 2.16.84 0.1.874504.3.579.2.593 1970 Unknown [id number] 2.16.84 0.1.195486.3.579.2.593 1970 Unknown [id number] 2.16.84 0.1.302192.3.579.2.593 1959 [employer] Cross Blue Shield [id number] 1959 Self-pay Unknown [id number] 2.16.8 40.1.182720.3.579.2.531 Social History Date Type Detail Facility Sex Assigned At [facility] Other Clinical Notes 10-31-2021 to 12-19-2022 Note [...] by: LARISSA CHOI Date: 2022-12-19 11:40 [facility] [place] 10-19-2022 Note PROCEDURE: XR FOOT R T [...] by: TERI KAY Date: 2022-10-19 08:47 [facility] [place] 09-28-2022 Note PROCEDURE: XR FOOT R T [...] by: BARBARA HERNANDEZ Date: 2022-09-28 16:30 [facility] [place] 09-08-2022 Note PROCEDURE: XR FOOT R T [...] authenticated by: TERI KAY Date: 2022-09-08 07:03 [facility] 08-15-2022 Note PROCEDURE: XR FOOT [...] authenticated by: BARBARA HERNANDEZ Date: 2022-08-15 08:58 [facility] 08-15-2022 Note PROCEDURE: XR FOOT [...] authenticated by: BARBARA HERNANDEZ Date: 2022-08-15 08:58 [facility] 06-15-2022 Note PROCEDURE: XR FOOT R T MIN 3 VIEWS COMPARISON: 09/08/2021 HISTORY: Pain in right foot FINDINGS: BONES:No acute fracture or dislocation. Stable uwty-xu-ndhavjar degenerative change with joint space narrowing marginal osteophyte formation most significant in the midfoot SOFT TISSUES:Negative. No visible soft tissue swelling. EFFUSION:None visible. OTHER: Negative. IMPRESSION: Stable degenerative changes Electronically authenticated by: BARBARA HERNANDEZ Date: 2022-06-15 08:48 [facility] 02-03-2022 Evaluation note Encounter Date Diagnosis Assessment [...] - M65.331) Currently resolved. Continue to monitor [facility] Other 07-01-2022 Evaluation note* Encounter Date Diagnosis [...] as documented in the electronic medical record. [facility] Other 06-30-2022 History general Narrative - Reported* Type Description Date Medical History Hypertension Medical History chronic depression Medical History hearing loss Surgical History hysterectomy-partial 2017 Surgical History left carpal tunnel release by Bibi Alvarenga 01/26/2022 [facility] Other 04-04-2022 Evaluation note* Encounter Date Diagnosis [...] of pinch strength in approximately 6 weeks, surgical physician assistant strength recovery at about 12 weeks, and [...] as documented in the electronic medical record. [facility] Other History general Narrative - Reported* Type Description Date Medical History Hypertension Medical History chronic depression Medical History hearing loss Surgical History hysterectomy-partial 2016 [facility] Other Summary Purpose Family History No Family History Records FoundNo Family History Records FoundNo Family History Records Found Advance Directives No Advanced Directives Records FoundNo Advanced Directives Records FoundNo Advanced Directives Records Found Additional Source Comments REASON FOR VISIT (unrecogniz ed section and content) Bilateral Carpal TunnelRight Hip PainRecheck Left Wrist INFORMATION SOURCE (unrecogn ized section and content) DATE CREATED AUTHOR 02/17/2022 Dominic Seahorse [facility] DATE CREATED AUTHOR AUTHOR'S ORGANIZ ATION 01/05/2023 [facility] DATE CREATED AUTHOR AUTHOR'S ORGANIZ ATION 03/28/2024 [facility] RECORDS PERTAINING TO PATIENTS WHO [...] BE BASED ON THE PRIMARY CLINICAL RECORDS. [email or web address] [facility]. provides no warranty or guarantee of the accuracy or completeness of information in this document.
[2024-07-03 17:02] LABS: Internal Control Within Normal Limits; Occult Blood Negative
== END 2024-07-03 15:53 | disposition home or self-care (01) ==
LOC: LAB 15:52
PROVIDERS: PCP Nurse Practitioner Family; Visit Provider Nurse Practitioner Family
DX: Z00.00 Encounter for general adult medical examination without abnormal findings (principal)
CPT/HCPCS: G0328

== ENCOUNTER 2024-08-20 12:42 | Outpatient (OUT) | payer BC, SELFPAY ==
--- NOTE | 2024-08-20 12:47 | XR_ITS ---
The [address] [address] Patient Name: LAWRENCE LIZAMA MRN: [id number] date: 1970 Sex: F Assigned Patient Location: [facility] Current Patient Location: Accession/Order Number: [id number] Exam Date: 08/20/2024 12:55 Report Date: 08/21/2024 05:51 At the request of: LOS VENTURA Procedure: XR foot RT min 3V PROCEDURE: XR foot RT min 3V HISTORY: Right Foot Pain COMPARISON: XR foot right 05/28/2024 FINDINGS: BONES:Mechanical fusion of the talocalcaneal joint via 2 screws, and the navicular-medial cuneiform joints via dorsal bone staple. Mild degenerative changes the midfoot. No fracture or dislocation. SOFT TISSUES:No visible soft tissue swelling. EFFUSION:None visible. OTHER: Negative. XR/XR foot RT min 3V IMPRESSION: 1. Stable surgical changes without evidence of hardware failure or change in alignment. Electronically authenticated by: TERI KAY Date: 08/21/2024 05:51
--- OUTSIDE RECORDS SUMMARY | 2024-08-20 12:51 | XMS_ITS | CCD ---
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 Line Name Role Phone Rai Alvarenga Unavailable KEL [...] Hutchinson Admitting Unavaila ble GRDAVEY ., DR JASEIL Hutchinson Attending Unavaila ble ALEXANDER ., DR [...] Admitting Unavaila ble GRILLIS ., DR JASIEL Hutcihnson Attending Unavaila ble GRILLICalin ., DR JASIEL Hutchinson Consulting Unavaila JASIEL Avelar Consulting Unavailable ESPERANZA LAMAR Consulting Unavailable SUSIE KEMP Consulting Unavailable KEL MONTGOMERY Primary Care Unavailable ADRIANA KIM Admitting Unavailable ADRIANA KIM Attending Unavailable ADRIANA KIM Consulting Unavailable LARISSA CHOI Consulting Unavailable MELISSA, NONE LISTED Primary Care Unavaila LOS Tna Consulting Unavailable LOS VENTURA Admitting Unavailable HIGHLANDER, [...] DR JASIEL Hutchinson Attending Unavaila ble VALENTINA, [facility] Primary Care Unavailable GRILLIS ., [...] Aspirin Drug Allergy Unknown [facility] [place] Other (3 sources) Latex Propensity to adverse reactions Unknown [facility] [place] Other (2 sources) Aspirin Drug Allergy [facility]ository (2 sources) Latex Drug allergy (disorder) [facility] Repository (1 source) Aspirin Drug Allergy 2 [facility] Repository (1 source) Latex Drug allergy (disorder) 2 [facility] Repository Medications Current Medications Medication Drug [...] mouth every week Vitamin D3 1.25 MG (08025 UT) 1 capsule Orally once per week [...] INFANTE Date: 2022-11-10 23:57 Normal [facility] US KIDNEYS BLADDERon 023 US KIDNEYS BLADDER US KIDNEYS BLADDER EXAM DATE: 09/23/2022 6:34 AM MST COMPARISON: None available. INDICATION: Recurrent UTI. TECHNIQUE: Real-time ultrasound scanning of the kidneys and bladder was performed by the applications consultant. Design Cell Engineer static images are submitted for review. FINDINGS: [...] NEEL WEBBER Date: 2022-09-23 14:49 Normal [facility] CBC AUTO DIFFon 08-15-2022 BASO # 0.0 103/ul Normal 0.0-0.1 [facility] Comment on above: Performed By: #### C BC #### [facility] [address] [address] [address] Arianna Hamlin Basophils/100 WBC (Bld) 0.3 % Normal 0.2-2.0 [facility] Comment on above: Performed By: #### C BC #### [facility] [address] [address] [address] Arianna Hamlin EO # 0.0 103/ul Normal 0.0-0.7 [facility] Comment on above: Performed By: #### C BC #### [facility] [address] [address] [address] Arianna Hamlin Eosinophils/100 WBC (Bld) 0.1 % Critically low 0.9-7.0 [facility] Comment on above: Performed By: #### C BC #### [facility] [address] [address] [address] Arianna Hamlin Erythrocyte distribution width (RBC) [Ratio] 12.2 % Normal 11.0-15.0 [facility] Comment on above: Performed By: #### C BC #### [facility] [address] [address] [address] Arianna Hamlin Hematocrit (Bld) [Volume fraction] 35.9 % Critically low 36.0-48.0 [facility] Comment on above: Performed By: #### C BC #### [facility] [address] [place] [address] Dr. Arianna Hamlin Hemoglobin (Bld) [Mass/Vol] 12.0 g/dL Normal 12.0-16.0 [facility] Comment on above: Performed By: #### C BC #### [facility] [address] [place] [address] Dr. Arianna Hamlin IG # 0.02 10e3/ul Normal 0.00-0.03 [facility] Comment on above: Performed By: #### C BC #### [facility] [address] [place] [address] Dr. Arianna Hamlin IG % 0.3 % Normal 0.0-0.5 [facility] Comment on above: Performed By: #### C BC #### [facility] [address] [place] [address] Dr. Arianna Hamlin LYMPH # 1.8 103/ul Normal 1.2-3.8 [facility] Comment on above: Performed By: #### C BC #### [facility] [address] [place] [address] Dr. Arianna Hamlin Lymphocytes/100 WBC (Bld) 22.8 % Normal 20.5-60.0 [facility] Comment on above: Performed By: #### C BC #### [facility] [address] [place] [address] Dr. Arianna Hamlin MANUAL DIFF REQ NO Normal [facility] Comment on above: Performed By: #### C BC #### [facility] [address] [place] [address] Dr. Arianna Hamlin MCH (RBC) [Entitic mass] 27.8 pg Normal 26.7-34.0 [facility] Comment on above: Performed By: #### C BC #### [facility] [address] [address] [address] Arianna Hamlin MCHC (RBC) [Mass/Vol] 33.4 g/dL Normal 29.9-35.2 [facility] Comment on above: Performed By: #### C BC #### [facility] [address] [address] [address] Arianna Hamlin MCV (RBC) [Entitic vol] 83.1 fL Normal 81.0-99.0 [facility] Comment on above: Performed By: #### C BC #### [facility] [address] [address] [address] Arianna Hamlin MONO # 0.9 103/ul Critically high 0.3-0.8 [facility] Comment on above: Performed By: #### C BC #### [facility] [address] [place] [address] Dr. Arianna Hamlin Monocytes/100 WBC (Bld) 10.8 % Normal 1.7-12.0 [facility] Comment on above: Performed By: #### C BC #### [facility] [address] [address] [address] Arianna Hamlin NEUT # 5.2 103/ul Normal 1.4-6.5 [facility] Comment on above: Performed By: #### C BC #### [facility] [address] [place] [address] Dr. Arianna Hamlin Neutrophils/100 WBC (Bld) 65.7 % Normal 43.0-75.0 [facility] Comment on above: Performed By: #### C BC #### [facility] [address] [address] [address] Arianna Hamlin Platelet mean volume (Bld) [Entitic vol] 10.2 fL Normal 9.5-13.5 [facility] Comment on above: Performed By: #### C BC #### [facility] [address] [address] [address] Arianna Hamlin PLT 243 103/ul Normal 150-450 [facility] Comment on above: Performed By: #### C BC #### [facility] [address] [place] [address] Dr. Arianna Hamlin RBC 4.32 106/ul Normal 4.20-5.40 [facility] Comment on above: Performed By: #### C BC #### [facility] [address] [place] [address] Dr. Arianna Hamlin WBC 7.9 103/ul Normal 4.0-11.0 [facility] Comment on above: Performed By: #### C BC #### [facility] [address] [place] [address] Dr. Arianna Hamlin PROF CHEM 8 (BAS METB)on Anion gap [Moles/Vol] 10.8 mmol/L Normal [facility] Comment on above: Performed By: #### B MP #### [facility] [address] [place] [address] Dr. Arianna Hamlin Calcium [Mass/Vol] 9.0 mg/dL Normal 8.5-10.1 [facility] Comment on above: Performed By: #### B MP #### [facility] [address] [place] [address] Dr. Arianna Hamlin Chloride [Moles/Vol] 101 mmol/L Normal 98-107 [facility] Comment on above: Performed By: #### B MP #### [facility] [address] [place] [address] Dr. Arianna Hamlin CO2 [Moles/Vol] 30.8 mmol/L Normal 21.0-32.0 [facility] Comment on above: Performed By: #### B MP #### [facility] [address] [place] [address] Dr. Arianna Hamlin Creatinine [Mass/Vol] 0.79 mg/dL Normal 0.55-1.02 [facility] Comment on above: Performed By: #### B MP #### [facility] [address] [place] [address] Dr. Arianna Hamlin EGFR-AF TONGAN >60 Normal >=60 [facility] Comment on above: Performed By: #### B MP #### [facility] [address] [place] [address] Dr. Arianna Hamlin EGFR-NON AF TONGAN >60 Normal >=60 [facility] Comment on above: Performed By: #### B MP #### [facility] [address] [address] [address] Arianna Hamlin Glucose [Mass/Vol] 110 mg/dL Critically high 74-106 [facility] Comment on above: Performed By: #### B MP #### [facility] [address] [address] [address] Arianna Hamlin Potassium [Moles/Vol] 3.6 mmol/L Normal 3.5-5.1 [facility] Comment on above: Performed By: #### B MP #### [facility] [address] [address] [address] Arianna Hamlin Sodium [Moles/Vol] 139 mmol/L Normal 136-145 [facility] Comment on above: Performed By: #### B MP #### [facility] [address] [address] [address] Arianna Hamlin Urea nitrogen [Mass/Vol] 8.0 mg/dL Normal 7.0-18.0 [facility] Comment on above: Performed By: #### B MP #### [facility] [address] [address] [address] Arianna Hamlin Urea nitrogen/Creatinine [Mass ratio] 10.1 mg/mg Normal [facility] Comment on above: Performed By: #### B MP #### [facility] [address] [address] [address] Arianna Hamlin UA RANDOMon 08-15-2022 Bilirubin Ql (U) Negative Normal NEGATIVE [facility] Comment on above: Performed By: #### C BC #### [facility] [address] [address] [address] Arianna Hamlin Clarity (U) CLEAR Normal CLEAR [facility] Comment on above: Performed By: #### C BC #### [facility] [address] [address] [address] Arianna Hamlin Glucose Ql (U) Negative Normal NEGATIVE [facility] Comment on above: Performed By: #### C BC #### [facility] [address] [place] [address] Dr. Arianna Hamlin Hemoglobin Ql (U) Negative Normal NEGATIVE [facility] Comment on above: Performed By: #### C BC #### [facility] [address] [address] [address] Arianna Hamlin Ketones Ql (U) Negative Normal NEGATIVE [facility] Comment on above: Performed By: #### C BC #### [facility] [address] [address] [address] Arianna Hamlin LEUKOCYTES MODERATE Abnormal NEGATIVE [facility] Comment on above: Performed By: #### C BC #### [facility] [address] [place] [address] Dr. Arianna Hamlin Nitrite Ql (U) Negative Normal NEGATIVE [facility] Comment on above: Performed By: #### C BC #### [facility] [address] [place] [address] Dr. Arianna Hamlin pH (U) 7.0 [pH] Normal 5-9 [facility] Comment on above: Performed By: #### C BC #### [facility] [address] [place] [address] Dr. Arianna Hamlin SPEC GRAVITY 1.010 Normal 1.005-<=1.025 [facility] Comment on above: Performed By: #### C BC #### [facility] [address] [place] [address] Dr. Arianna Hamlin UA PROTEIN Negative Normal NEGATIVE/ TRACE [facility] Comment on above: Performed By: #### C BC #### [facility] [address] [place] [address] Dr. Arianna Hamlin Urobilinogen Qn (U) 0.2 {Ayden'U}/dL Normal 0.2 - 1. 0 [facility] Comment on above: Performed By: #### C BC #### [facility] [address] [place] [address] Dr. Arianna Hamlin XR FOOT RT 2Von [...] BARBARA HERNANDEZ Date: 2022-08-15 08:59 Normal [facility] POINT OF CARE GLUCOSEon 07-30 Glucose [Mass/Vol] 138 mg/dL Critically high 74-106 [facility] Comment on above: Performed By: #### P OCGLUC #### [facility] [address] [place] [address] Dr. Arianna Hamlin Glucose [Mass/Vol] 94 mg/dL Normal 74-106 [facility] Comment on above: Performed By: #### P OCGLUC #### [facility] [address] [place] [address] Dr. Arianna Hamlin CBC AUTO DIFFon 08-08-2022 BASO # 0.0 103/ul Normal 0.0-0.1 [facility] Comment on above: Performed By: #### C BC #### [facility] [address] [place] [address] Dr. Arianna Hamlin Basophils/100 WBC (Bld) 0.7 % Normal 0.2-2.0 [facility] Comment on above: Performed By: #### C BC #### [facility] [address] [place] [address] Dr. Arianna Hamlin EO # 0.1 103/ul Normal 0.0-0.7 [facility] Comment on above: Performed By: #### C BC #### [facility] [address] [place] [address] Dr. Arianna Hamlin Eosinophils/100 WBC (Bld) 1.3 % Normal 0.9-7.0 [facility] Comment on above: Performed By: #### C BC #### [facility] [address] [place] [address] Dr. Arianna Hamlin Erythrocyte distribution width (RBC) [Ratio] 12.3 % Normal 11.0-15.0 [facility] Comment on above: Performed By: #### C BC #### [facility] [address] [place] [address] Dr. Arianna Hamlin Hematocrit (Bld) [Volume fraction] 38.4 % Normal 36.0-48.0 [facility] Comment on above: Performed By: #### C BC #### [facility] [address] [place] [address] Dr. Arianna Hamlin Hemoglobin (Bld) [Mass/Vol] 13.2 g/dL Normal 12.0-16.0 [facility] Comment on above: Performed By: #### C BC #### [facility] [address] [place] [address] Dr. Arianna Hamlin IG # 0.01 10e3/ul Normal 0.00-0.03 [facility] Comment on above: Performed By: #### C BC #### [facility] [address] [place] [address] Dr. Arianna Hamlin IG % 0.2 % Normal 0.0-0.5 [facility] Comment on above: Performed By: #### C BC #### [facility] [address] [place] [address] Dr. Arianna Hamlin LYMPH # 1.8 103/ul Normal 1.2-3.8 [facility] Comment on above: Performed By: #### C BC #### [facility] [address] [place] [address] Dr. Arianna Hamlin Lymphocytes/100 WBC (Bld) 30.8 % Normal 20.5-60.0 [facility] Comment on above: Performed By: #### C BC #### [facility] [address] [place] [address] Dr. Arianna Hamlin MANUAL DIFF REQ NO Normal [facility] Comment on above: Performed By: #### C BC #### [facility] [address] [place] [address] Dr. Arianna Hamlin MCH (RBC) [Entitic mass] 27.7 pg Normal 26.7-34.0 [facility] Comment on above: Performed By: #### C BC #### [facility] [address] [address] [address] Arianna Hamlin MCHC (RBC) [Mass/Vol] 34.4 g/dL Normal 29.9-35.2 [facility] Comment on above: Performed By: #### C BC #### [facility] [address] [address] [address] Arianna Hamlin MCV (RBC) [Entitic vol] 80.7 fL Critically low 81.0-99.0 [facility] Comment on above: Performed By: #### C BC #### [facility] [address] [place] [address] Dr. Arianna Hamlin MONO # 0.4 103/ul Normal 0.3-0.8 [facility] Comment on above: Performed By: #### C BC #### [facility] [address] [place] [address] Dr. Arianna Hamlin Monocytes/100 WBC (Bld) 7.1 % Normal 1.7-12.0 [facility] Comment on above: Performed By: #### C BC #### [facility] [address] [place] [address] Dr. Arianna Hamlin NEUT # 3.6 103/ul Normal 1.4-6.5 [facility] Comment on above: Performed By: #### C BC #### [facility] [address] [place] [address] Dr. Arianna Hamlin Neutrophils/100 WBC (Bld) 59.9 % Normal 43.0-75.0 [facility] Comment on above: Performed By: #### C BC #### [facility] [address] [place] [address] Dr. Arianna Hamlin Platelet mean volume (Bld) [Entitic vol] 9.5 fL Normal 9.5-13.5 [facility] Comment on above: Performed By: #### C BC #### [facility] [address] [place] [address] Dr. Arianna Hamlin PLT 248 103/ul Normal 150-450 [facility] Comment on above: Performed By: #### C BC #### [facility] [address] [place] [address] Dr. Arianna Hamlin RBC 4.76 106/ul Normal 4.20-5.40 [facility] Comment on above: Performed By: #### C BC #### [facility] [address] [place] [address] Dr. Arianna Hamlin WBC 5.9 103/ul Normal 4.0-11.0 [facility] Comment on above: Performed By: #### C BC #### [facility] [address] [place] [address] Dr. Arianna Hamlin Covid-19 PCR (CVDTB)on 07-30 SARS-CoV-2 (COVID-19) RNA RICHARD+probe Ql (Unsp spec) Not detected Normal NOT DETECTED [facility] Comment on above: Result Comment: This test is not yet approved or cleared by the [place] FDA. When there are no FDA-approved or cleared tests available, and other criteria are met, FDA can make tests available under an emergency access mechanism called an Emergency Use Authorization (EUA). The EUA for this test is supported by the [place] of Health and Human Service's (HHS's) declaration [...] SARS-CoV-2. Performed By: #### C VDTBH #### [facility] [address] [place] [address] Dr. Arianna Hamlin PROF CHEM 8 (BAS METB)on Anion gap [Moles/Vol] 10.1 mmol/L Normal [facility] Comment on above: Performed By: #### B MP #### [facility] [address] [place] [address] Dr. Arianna Hamlin Calcium [Mass/Vol] 9.2 mg/dL Normal 8.5-10.1 [facility] Comment on above: Performed By: #### B MP #### [facility] [address] [address] [address] Arianna Hamlin Chloride [Moles/Vol] 103 mmol/L Normal 98-107 [facility] Comment on above: Performed By: #### B MP #### [facility] [address] [address] [address] Arianna Hamlin CO2 [Moles/Vol] 30.7 mmol/L Normal 21.0-32.0 [facility] Comment on above: Performed By: #### B MP #### [facility] [address] [place] [address] Dr. Arianna Hamlin Creatinine [Mass/Vol] 0.86 mg/dL Normal 0.55-1.02 [facility] Comment on above: Performed By: #### B MP #### [facility] [address] [address] [address] Arianna Hamlin EGFR-AF TONGAN >60 Normal >=60 [facility] Comment on above: Performed By: #### B MP #### [facility] [address] [place] [address] Dr. Arianna Hamlin EGFR-NON AF TONGAN >60 Normal >=60 [facility] Comment on above: Performed By: #### B MP #### [facility] [address] [place] [address] Dr. Arianna Hamlin Glucose [Mass/Vol] 77 mg/dL Normal 74-106 [facility] Comment on above: Performed By: #### B MP #### [facility] [address] [address] [address] Arianna Hamlin Potassium [Moles/Vol] 3.8 mmol/L Normal 3.5-5.1 [facility] Comment on above: Performed By: #### B MP #### [facility] [address] [place] [address] Dr. Arianna Hamlin Sodium [Moles/Vol] 140 mmol/L Normal 136-145 [facility] Comment on above: Performed By: #### B MP #### [facility] [address] [address] [address] Arianna Hamlin Urea nitrogen [Mass/Vol] 8.0 mg/dL Normal 7.0-18.0 [facility] Comment on above: Performed By: #### B MP #### [facility] [id number] Arianna Hamlin Urea nitrogen/Creatinine [Mass ratio] 9.3 mg/mg Normal [facility] Comment on above: Performed By: #### B MP #### [facility] [address] [address] [address] Arianna Hamlin Covid-19 PCR ([facility])on SARS-CoV-2 (COVID-19) RNA RICHARD+probe Ql (Unsp spec) Not detected Normal NOT DETECTED [facility] Comment on above: Result Comment: This test is not yet approved or cleared by the [place] FDA. When there are no FDA-approved or cleared tests available, and other criteria are met, FDA can make tests available under an emergency access mechanism called an Emergency Use Authorization (EUA). The EUA for this test is supported by the [place] of Health and Human Service's (HHS's) declaration [...] SARS-CoV-2. Performed By: #### B MP #### [facility] [address] [place] [address] Dr. Arianna Hamlin MRI ANKLE RT WO [...] DALTON ALVARENGA Date: 2022-06-24 12:09 Normal [facility] H PYLORI TISSUEon 05-17-2022 H PYL TISSUE, UREASE Negative Normal NEGATIVE [facility] Comment on above: Performed By: #### B MP #### [facility] [address] [place], [place] [address] Dr. Arianna Hamlin Covid-19 PCR ([facility])on 04-29 SARS-CoV-2 (COVID-19) RNA RICHARD+probe Ql (Unsp spec) Not detected Normal NOT DETECTED [facility] Comment on above: Result Comment: This test is not yet approved or cleared by the [place] FDA. When there are no FDA-approved or cleared tests available, and other criteria are met, FDA can make tests available under an emergency access mechanism called an Emergency Use Authorization (EUA). The EUA for this test is supported by the [place] of Health and Human Service's (HHS's) declaration [...] SARS-CoV-2. Performed By: #### C VDTBH #### [facility] [address] [place], [place] [address] Dr. Arianna Hamlin LFORINA by IFAon 05-11-2022 Antinuclear Antibodies, IFA Negative Normal [facility] Comment on above: Result Comment: Nega tive <1:80 Borderline 1:80 Positive >1:80 ICAP nomenclature: AC-0 For more information about Hep-2 cell patterns use ANApatterns.org, the official website for the International Consensus on Antinuclear Antibody (FLORINA) Patterns (ICAP). Performed By: #### B MP #### [facility] [address] [place] [address] Dr. Arianna Hamlin CULTURE URINEon 05-11-2022 CULTURE [...] Trimethoprim/Sulfameth oxazole <=20 S C Normal The [facility] Comment on above: Performed By: #### C BC #### [facility] [address] [place] [address] Dr. Arianna Hamlin ANTISTREPTOLYSIN O AB (ASO)o n 05-10-2022 Antistreptolysin O Ab 45.8 IU/mL Normal 0.0-200.0 [facility] Comment on above: Performed By: #### C BC #### [facility] [address] [place] [address] Dr. Arianna Hamlin RHEUMATOID FACTORon 05-10-20 RA Latex Turbid. <10.0 Normal <14.0 [facility] Comment on above: Performed By: #### B MP #### [facility] [address] [place] [address] Dr. Arianna Hamlin CRPon 05-08-2022 CRP [Mass/Vol] mg/L Normal <=1.0 [facility] Comment on above: Performed By: #### C BC #### [facility] [address] [place] [address] Dr. Arianna Hamlin UA RANDOM W/MICROSCOPICon BACTERIA LARGE Abnormal NONE SEEN The [facility] Comment on above: Performed By: #### U AMIC #### [facility] [address] [address] [address] Arianna Hamlin Bilirubin Ql (U) Negative Normal NEGATIVE The [facility] Comment on above: Performed By: #### U AMIC #### [facility] [address] [address] [address] Arianna Hamlin CAST NONE SEEN Normal NONE SEEN The [facility] Comment on above: Performed By: #### U AMIC #### [facility] [address] [address] [address] Arianna Hamlin Clarity (U) CLEAR Normal CLEAR The [facility] Comment on above: Performed By: #### U AMIC #### [facility] [address] [place] [address] Dr. Arianna Hamlin Color (U) LT. YELLOW Normal YELLOW The [facility] Comment on above: Performed By: #### U AMIC #### [facility] [address] [address] [address] Arianna Hamlin Crystals LM Nom (Urine sed) NONE SEEN Normal NONE SEEN The [facility] Comment on above: Performed By: #### U AMIC #### [facility] [address] [place] [address] Dr. Arianna Hamlin Epithelial cells LM Ql (Urine sed) FEW Abnormal NONE SEEN /RARE The [facility] Comment on above: Performed By: #### U AMIC #### [facility] [address] [address] [address] Arianna Hamlin Glucose Ql (U) Negative Normal NEGATIVE [facility] Comment on above: Performed By: #### U AMIC #### [facility] [address] [address] [address] Arianna Hamlin Hemoglobin Ql (U) SMALL Abnormal NEGATIVE The [facility] Comment on above: Performed By: #### U AMIC #### [facility] [address] [place] [address] Dr. Arianna Hamlin Ketones Ql (U) TRACE Abnormal NEGATIVE [facility] Comment on above: Performed By: #### U AMIC #### [facility] [address] [address] [address] Arianna Hamlin LEUKOCYTES MODERATE Abnormal NEGATIVE [facility] Comment on above: Performed By: #### U AMIC #### [facility] [address] [address] [address] Arianna Hamlin MUCOUS NONE SEEN Normal NONE SEEN The [facility] Comment on above: Performed By: #### U AMIC #### [facility] [address] [address] [address] Arianna Hamlin Nitrite Ql (U) Positive Abnormal NEGATIVE [facility] Comment on above: Performed By: #### U AMIC #### [facility] [address] [address] [address] Arianna Hamlin pH (U) 6.0 [pH] Normal 5-9 [facility] Comment on above: Performed By: #### U AMIC #### [facility] [address] [place] [address] Dr. Arianna Hamlin RBC 2-5 Abnormal 0-2 [facility] Comment on above: Performed By: #### U AMIC #### [facility] [address] [address] [address] Arianna Hamlin SPEC GRAVITY >=1.030 Abnormal 1.005-<=1.025 The [facility] Comment on above: Performed By: #### U AMIC #### [facility] [address] [address] [address] Arianna Hamlin UA PROTEIN Negative Normal NEGATIVE/ TRACE The [facility] Comment on above: Performed By: #### U AMIC #### [facility] [address] [place] [address] Dr. Arianna Hamlin Urobilinogen Qn (U) 0.2 {Ayden'U}/dL Normal 0.2 - 1. 0 [facility] Comment on above: Performed By: #### U AMIC #### [facility] [address] [place] [address] Dr. Arianna Hamlin WBC 20-50 Abnormal NONE SEEN The [facility] Comment on above: Performed By: #### U AMIC #### [facility] [address] [place] [address] Dr. Arianna Hamlin URIC ACID SERUMon 05-08-2022 Urate [Mass/Vol] 4.1 mg/dL Normal 2.6-6.0 [facility] Comment on above: Performed By: #### U BETY, CRP #### [facility] [address] [place] [address] Dr. Arianna Hamlin CBC AUTO DIFFon 01-24-2022 BASO # 0.1 103/ul Normal 0.0-0.1 [facility] Comment on above: Performed By: #### C BC #### [facility] [address] [place] [address] Dr. Arianna Hamlin Basophils/100 WBC (Bld) 0.9 % Normal 0.2-2.0 [facility] Comment on above: Performed By: #### C BC #### [facility] [address] [place] [address] Dr. Arianna Hamlin EO # 0.1 103/ul Normal 0.0-0.7 [facility] Comment on above: Performed By: #### C BC #### [facility] [address] [place] [address] Dr. Arianna Hamlin Eosinophils/100 WBC (Bld) 2.2 % Normal 0.9-7.0 [facility] Comment on above: Performed By: #### C BC #### [facility] [address] [place] [address] Dr. Arianna Hamlin Erythrocyte distribution width (RBC) [Ratio] 12.7 % Normal 11.0-15.0 [facility] Comment on above: Performed By: #### C BC #### [facility] [address] [place] [address] Dr. Arianna Hamlin Hematocrit (Bld) [Volume fraction] 42.6 % Normal 36.0-48.0 [facility] Comment on above: Performed By: #### C BC #### [facility] [address] [place] [address] Dr. Arianna Hamlin Hemoglobin (Bld) [Mass/Vol] 14.2 g/dL Normal 12.0-16.0 [facility] Comment on above: Performed By: #### C BC #### [facility] [address] [place] [address] Dr. Arianna Hamlin IG # 0.02 10e3/ul Normal 0.00-0.03 [facility] Comment on above: Performed By: #### C BC #### [facility] [address] [place] [address] Dr. Arianna Hamlin IG % 0.4 % Normal 0.0-0.5 [facility] Comment on above: Performed By: #### C BC #### [facility] [address] [place] [address] Dr. Arianna Hamlin LYMPH # 2.0 103/ul Normal 1.2-3.8 [facility] Comment on above: Performed By: #### C BC #### [facility] [address] [place] [address] Dr. Arianna Hamlin Lymphocytes/100 WBC (Bld) 38.1 % Normal 20.5-60.0 [facility] Comment on above: Performed By: #### C BC #### [facility] [address] [place] [address] Dr. Arianna Hamlin MANUAL DIFF REQ NO Normal [facility] Comment on above: Performed By: #### C BC #### [facility] [address] [place] [address] Dr. Arianna Hamlin MCH (RBC) [Entitic mass] 28.1 pg Normal 26.7-34.0 [facility] Comment on above: Performed By: #### C BC #### [facility] [address] [place] [address] Dr. Arianna Hamlin MCHC (RBC) [Mass/Vol] 33.3 g/dL Normal 29.9-35.2 [facility] Comment on above: Performed By: #### C BC #### [facility] [address] [place] [address] Dr. Arianna Hamlin MCV (RBC) [Entitic vol] 84.4 fL Normal 81.0-99.0 [facility] Comment on above: Performed By: #### C BC #### [facility] [address] [place] [address] Dr. Arianna Hamlin MONO # 0.4 103/ul Normal 0.3-0.8 [facility] Comment on above: Performed By: #### C BC #### [facility] [address] [place] [address] Dr. Arianna Hamlin Monocytes/100 WBC (Bld) 7.3 % Normal 1.7-12.0 [facility] Comment on above: Performed By: #### C BC #### [facility] [address] [place] [address] Dr. Arianna Hamlin NEUT # 2.7 103/ul Normal 1.4-6.5 [facility] Comment on above: Performed By: #### C BC #### [facility] [address] [place] [address] Dr. Arianna Hamlin Neutrophils/100 WBC (Bld) 51.1 % Normal 43.0-75.0 [facility] Comment on above: Performed By: #### C BC #### [facility] [address] [place] [address] Dr. Arianna Hamlin Platelet mean volume (Bld) [Entitic vol] 9.8 fL Normal 9.5-13.5 [facility] Comment on above: Performed By: #### C BC #### [facility] [address] [place] [address] Dr. Arianna Hamlin PLT 276 103/ul Normal 150-450 [facility] Comment on above: Performed By: #### C BC #### [facility] [address] [place] [address] Dr. Arianna Hamlin RBC 5.05 106/ul Normal 4.20-5.40 [facility] Comment on above: Performed By: #### C BC #### [facility] [address] [place] [address] Dr. Arianna Hamlin WBC 5.4 103/ul Normal 4.0-11.0 [facility] Comment on above: Performed By: #### C BC #### [facility] [address] [address] [address] Arianna Hamlin PROF 14(COMP METB)on 022 Albumin [Mass/Vol] 4.2 g/dL Normal 3.4-5.0 [facility] Comment on above: Performed By: #### B MP #### [facility] [address] [place] [address] Dr. Arianna Hamlin Albumin/Globulin [Mass ratio] 1.3 {ratio} Normal [facility] Comment on above: Performed By: #### B MP #### [facility] [address] [place] [address] Dr. Arianna Hamlin ALP [Catalytic activity/Vol] 92 U/L Normal 46-116 [facility] Comment on above: Performed By: #### B MP #### [facility] [address] [place] [address] Dr. Arianna Hamlin ALT [Catalytic activity/Vol] 25 U/L Normal 14-59 [facility] Comment on above: Performed By: #### B MP #### [facility] [address] [place] [address] Dr. Arianna Hamlin Anion gap [Moles/Vol] 10.4 mmol/L Normal [facility] Comment on above: Performed By: #### B MP #### [facility] [address] [place] [address] Dr. Arianna Hamlin AST [Catalytic activity/Vol] 20 U/L Normal 15-37 [facility] Comment on above: Performed By: #### B MP #### [facility] [address] [place] [address] Dr. Arianna Hamlin Bilirubin [Mass/Vol] 0.2 mg/dL Normal 0.2-1.0 [facility] Comment on above: Performed By: #### B MP #### [facility] [address] [place] [address] Dr. Arianna Hamlin Calcium [Mass/Vol] 9.0 mg/dL Normal 8.5-10.1 [facility] Comment on above: Performed By: #### B MP #### [facility] [address] [place] [address] Dr. Arianna Hamlin Chloride [Moles/Vol] 103 mmol/L Normal 98-107 [facility] Comment on above: Performed By: #### B MP #### [facility] [address] [address] [address] Arianna Hamlin CO2 [Moles/Vol] 29.7 mmol/L Normal 21.0-32.0 [facility] Comment on above: Performed By: #### B MP #### [facility] [address] [address] [address] Arianna Hamlin Creatinine [Mass/Vol] 0.87 mg/dL Normal 0.55-1.02 [facility] Comment on above: Performed By: #### B MP #### [facility] [address] [place] [address] Dr. Arianna Hamlin EGFR-AF TONGAN >60 Normal >=60 [facility] Comment on above: Performed By: #### B MP #### [facility] [address] [address] [address] Arianna Hamlin EGFR-NON AF TONGAN >60 Normal >=60 [facility] Comment on above: Performed By: #### B MP #### [facility] [address] [place] [address] Dr. Arianna Hamlin Globulin (S) [Mass/Vol] 3.3 g/dL Normal [facility] Comment on above: Performed By: #### B MP #### [facility] [address] [address] [address] Arianna Hamlin Glucose [Mass/Vol] 99 mg/dL Normal 74-106 [facility] Comment on above: Performed By: #### B MP #### [facility] [address] [address] [address] Arianna Hamlin Potassium [Moles/Vol] 4.1 mmol/L Normal 3.5-5.1 [facility] Comment on above: Performed By: #### B MP #### [facility] [address] [place] [address] Dr. Arianna Hamlin Protein [Mass/Vol] 7.5 g/dL Normal 6.4-8.2 [facility] Comment on above: Performed By: #### B MP #### [facility] [address] [address] [address] Arianna Hamlin Sodium [Moles/Vol] 139 mmol/L Normal 136-145 [facility] Comment on above: Performed By: #### B MP #### [facility] [address] [address] [address] Arianna Hamlin Urea nitrogen [Mass/Vol] 11.0 mg/dL Normal 7.0-18.0 [facility] Comment on above: Performed By: #### B MP #### [facility] [address] [address] [address] Arianna Hamlin Urea nitrogen/Creatinine [Mass ratio] 12.6 mg/mg Normal [facility] Comment on above: Performed By: #### B MP #### [facility] [address] [address] [address] Arianna Hamlin Provider Letteron 09-06-2021 Provider Letter September 06, 2021 SIMIN CARO [address] [place] [id number] SIMIN CARO 1970 Dear Simin_ , We have been trying to reach you with no success. It is important that you return our call regarding your referral from Melinda Rodriguez upon receiving this letter. Also, at the time of your call, please provide us with your correct phone number. . Thank you for your prompt attention to this matter. Sincerely, General Surgery [phone] Normal [facility] Physician Referralon 022 Physician Referral [phone] [id number] Normal [facility] Vital Signs Date Time Vital Sign Value Performing Clinician Clarence cannon 02-03-2022 12:15-0400 Body height 160.02 cm Rai Alvarenga Other [facility] Other 02-03-2022 12:15-0400 Body mass index (BMI) [Ratio] 36.13 kg/m2 Rai Alvarenga Other [facility] Other 02-03-2022 12:15-0400 Body weight 92.53 kg Rai Alvarenga Other [facility] Other 01-27-2022 09:00-0400 Body height 160.02 cm Rai Colette Other [facility] Other 01-27-2022 09:00-0400 Body mass index (BMI) [Ratio] 36.13 kg/m2 Rai Colette Other [facility] Other 01-27-2022 09:00-0400 Body weight 92.53 kg Rai Colette Other [facility] Other 10-31-2021 16:30-0400 Body height 160.02 cm Rai Alvarenga Other [facility] Other 10-31-2021 16:30-0400 Body mass index (BMI) [Ratio] 37.02 kg/m2 Rai Colette Other [facility] Other 10-31-2021 16:30-0400 Body weight 94.8 kg Rai Alvarenga Other [facility] Other Encounters Encounter Date Encounter Type Care Provider Facility Start: 01-07-2024 ambulatory Bryce Duran acility:[facility] Start: 12-19-2022 End: 12-20-2022 ambulatory KEL [...] preprocedural laboratory examination LOS VENTURA [facility] Start: 08-10-2022 ambulatory KEL VALENTINA Facility: [facility] Start: 08-08-2022 End: 08-09-2022 ambulatory KLE VALENTINA Facility:[facility] Start: 08-08-2022 End: 08-09-2022 Encounter [...] 02-03-2022 End: 02-03-2022 ambulatory Rai Alvarenga Other [facility] Other Start: 02-03-2022 Postop follow up vis it related to original px Rai Alvarenga [facility] Start: 01-27-2022 End: 01-27-2022 ambulatory Rai Alvarenga Other [facility] Other Start: 01-27-2022 Office outpatient vi sit 15 minutes Rai Alvarenga [facility] Start: 01-24-2022 End: 01-25-2022 ambulatory RAI ALVARENGA Facility:[facility] Start: 10-31-2021 End: 10-31-2021 ambulatory Rai Alvarenga Other [facility] Other Start: 10-31-2021 Office outpatient ne w 45 minutes Rai Alvarenga [facility] Immunizations Immunization Date Immunization Notes Care Provider Fa chaz 05-16-2021 influenza, injectabl e, quadrivalent, preservative free Rai Colette Other [facility] Other 01-01-2021 COVID-19 Vaccine Yari - Documentation Purposes Only Rai Colette Other [facility] Other Payers Date Payer Category Payer Unknown [id number] .. [id number] 1970 Unknown [id number] ..[id number] [id number] 1970 Unknown [id number] .. 0.1.876421.3.579.2.593 1970 Unknown [id number] ..[id number] 0.1.675040.3.579.2.593 1970 Unknown [id number] .16.84 0.1.004287.3.579.2.593 1970 Unknown [id number] ..[id number] 0.1.304539.3.579.2.593 1970 Unknown [id number] ..[id number] 0.1.079271.3.579.2.593 1970 Unknown [id number] 2.16.84 0.1.121428.3.579.2.593 1970 Unknown [id number] 2.16.84 0.1.123749.3.579.2.593 1970 Unknown [id number] 2.16.84 0.1.363988.3.579.2.593 1970 Unknown [id number] 2.16.84 0.1.061863.3.579.2.593 1970 Unknown [id number] 2.16.84 0.1.661949.3.579.2.593 1970 Unknown [id number] 2.16.84 0.1.322341.3.579.2.593 1970 Unknown [id number] 2.16.84 0.1.177474.3.579.2.593 1970 Unknown [id number] 2.16.84 0.1.096881.3.579.2.593 1970 Unknown [id number] 2.16.84 0.1.948016.3.579.2.593 1970 Unknown [id number] 2.16.84 0.1.039855.3.579.2.593 1970 Unknown [id number] 2.16.84 0.1.497588.3.579.2.593 1970 Unknown [id number] 2.16.84 0.1.048106.3.579.2.593 1970 Unknown [id number] 2.16.84 0.1.917845.3.579.2.593 1970 Unknown [id number] 2.16.84 0.1.168673.3.579.2.593 1970 Unknown [id number] 2.16.84 0.1.880135.3.579.2.593 1959 Blue Cross Blue Shield [id number] 1959 Self-pay Unknown [id number] 2.16.8 40.1.320892.3.579.2.531 Social History Date Type Detail Facility Sex Assigned At [facility] Other Clinical Notes 10-31-2021 to 12-19-2022 Note [...] by: LARISSA CHOI Date: 2022-12-19 11:40 [facility] 10-19-2022 Note PROCEDURE: XR FOOT [...] by: TERI KAY Date: 2022-10-19 08:47 [facility] 09-28-2022 Note PROCEDURE: XR FOOT [...] by: BARBARA HERNANDEZ Date: 2022-09-28 16:30 [facility] 09-08-2022 Note PROCEDURE: XR FOOT [...] TERI KAY Date: 2022-09-08 07:03 [facility] 08-15-2022 Note PROCEDURE: XR FOOT R T [...] BARBARA HERNANDEZ Date: 2022-08-15 08:58 [facility] 08-15-2022 Note PROCEDURE: XR FOOT R T [...] BARBARA HERNANDEZ Date: 2022-08-15 08:58 [facility] 06-15-2022 Note PROCEDURE: XR FOOT R T MIN 3 VIEWS COMPARISON: 09/08/2021 HISTORY: Pain in right foot FINDINGS: BONES:No acute fracture or dislocation. Stable [id number] degenerative change with joint space narrowing marginal osteophyte formation most significant in the midfoot SOFT TISSUES:Negative. No visible soft tissue swelling. EFFUSION:None visible. OTHER: Negative. IMPRESSION: Stable degenerative changes Electronically authenticated by: BARBARA HERNANDEZ Date: 2022-06-15 08:48 [facility] 02-03-2022 Evaluation note Encounter Date [...] - M65.331) Currently resolved. Continue to monitor [facility] Other 07-01-2022 Evaluation note* Encounter Date Diagnosis [...] as documented in the electronic medical record. [facility] Other 06-30-2022 History general Narrative - Reported* Type Description Date Medical History Hypertension Medical History chronic depression Medical History hearing loss Surgical History hysterectomy-partial 2017 Surgical History left carpal tunnel release by Bibi Alvarenga 01/26/2022 [facility] Other 04-04-2022 Evaluation note* Encounter Date Diagnosis [...] of pinch strength in approximately 6 weeks, strategic solutions consultant strength recovery at about 12 weeks, and [...] poor healing. I have advised against the intermediate use of narcotic pain medication. I have [...] as documented in the electronic medical record. [facility] Other History general Narrative - Reported* Type Description Date Medical History Hypertension Medical History chronic depression Medical History hearing loss Surgical History hysterectomy-partial 2016 [facility] Other Summary Purpose Family History No Family History Records FoundNo Family History Records FoundNo Family History Records Found Advance Directives No Advanced Directives Records FoundNo Advanced Directives Records FoundNo Advanced Directives Records Found Additional Source Comments REASON FOR VISIT (unrecogniz ed section and content) Bilateral Carpal TunnelRight Hip PainRecheck Left Wrist INFORMATION SOURCE (unrecogn ized section and content) DATE CREATED AUTHOR 02/17/2022 Dominic Zibby [facility] DATE CREATED AUTHOR AUTHOR'S ORGANIZ ATION 01/05/2023 [facility] DATE CREATED AUTHOR AUTHOR'S ORGANIZ ATION 03/28/2024 [facility] FOR RECORDS PERTAINING TO PATIENTS [...] BE BASED ON THE PRIMARY CLINICAL RECORDS. [facility] [facility]. provides no warranty or guarantee of the accuracy or completeness of information in this document.
== END 2024-08-20 12:43 | disposition home or self-care (01) ==
LOC: RAD 12:42
PROVIDERS: PCP Nurse Practitioner Family; Visit Provider Podiatrist Foot & Ankle Surgery
DX: M79.671 Pain in right foot (principal); M24.674 Ankylosis, right foot; Z51.89 Encounter for other specified aftercare; Z98.1 Arthrodesis status
CPT/HCPCS: 73630

== ENCOUNTER 2024-08-27 10:40 | Outpatient (OUT) | payer BC, SELFPAY ==
--- NOTE | 2024-08-27 10:42 | CT_ITS ---
[address] [address] Patient Name: LAWRENCE LIZAMA MRN: [id number] date: 1970 Sex: F Assigned Patient Location: [facility] Current Patient Location: Accession/Order Number: [id number] Exam Date: 08/27/2024 10:45 Report Date: 08/28/2024 08:23 At the request of: LOS VENTURA Procedure: CT foot RT wo con EXAMINATION: CT foot RT wo con HISTORY: Nonunion STJ COMPARISON: XR foot right 08/20/2024, CT ankle right 04/07/2024 TECHNIQUE: Multi-planar CT images were created without and/or with IV contrast according to examination type. Dose reduction techniques were achieved by using automated exposure control and/or adjustment of mA and/or kV according to patient size and/or use of iterative reconstruction technique. FINDINGS: BONES: Mechanical fusion of the talocalcaneal joint via 2 fusion screws; no appreciable hardware fracture or loosening. Mechanical fusion of the talonavicular joint via a bone staple. Advanced degenerative changes the midfoot with numerous subchondral cysts. Evidence of prior hardware placement and removal. No fracture or dislocation. SOFT TISSUES: Mild soft tissue swelling surrounding the foot. EFFUSION: None visible. OTHER: Negative. CT/CT foot RT wo con IMPRESSION: 1. Stable surgical changes without is of hardware failure or change in alignment. 2. Grossly stable advanced degenerative changes. Electronically authenticated by: TERI KAY Date: 08/28/2024 08:23
--- OUTSIDE RECORDS SUMMARY | 2024-08-27 10:44 | XMS_ITS | CCD ---
Author Organization [facility] CliniSyri Care Team Providers Care Customer Experience Strategist Name Role Phone Rai Alvarenga Unavailable KEL [...] DR JASIEL Hutchinson Attending Unavaila ble [place] Primary Care Unavailable GRILLIS ., DR [...] Facility (3 sources) Aspirin Drug Allergy Unknown [facility] Other (3 sources) Latex Propensity to adverse reactions Unknown [facility] Other (2 sources) Aspirin Drug Allergy [facility] (2 sources) Latex Drug allergy (disorder) [facility] (1 source) Aspirin Drug Allergy 2 [facility] Repository (1 source) Latex Drug allergy (disorder) 2 [facility] Medications Current Medications Medication Drug [...] mouth every week Vitamin D3 1.25 MG (93922 UT) 1 capsule Orally once per week [...] by: Elizabeth INFANTE Date: 2022-11-10 23:57 Normal [facility] US KIDNEYS BLADDERon 023 US KIDNEYS BLADDER US KIDNEYS BLADDER EXAM DATE: 09/23/2022 6:34 AM MST COMPARISON: None available. INDICATION: Recurrent UTI. TECHNIQUE: Real-time ultrasound scanning of the kidneys and bladder was performed by the log haul operator. Liquid Sugar Melter static images are submitted for review. FINDINGS: [...] NEEL WEBBER Date: 2022-09-23 14:49 Normal [facility] CBC AUTO DIFFon 08-15-2022 BASO # 0.0 103/ul Normal 0.0-0.1 [facility] Comment on above: Performed By: #### C BC #### [facility] [address] [address] [address] Arianna Hamlin Basophils/100 WBC (Bld) 0.3 % Normal 0.2-2.0 [facility] Comment on above: Performed By: #### C BC #### [facility] [address] [address] [address] Arianna Hamlin EO # 0.0 103/ul Normal 0.0-0.7 [facility] Comment on above: Performed By: #### C BC #### [facility] [address] [address] [address] Arianna Hamlin Eosinophils/100 WBC (Bld) 0.1 % Critically low 0.9-7.0 [facility] Comment on above: Performed By: #### C BC #### [facility] [address] [address] [address] Arianna Hamlin Erythrocyte distribution width (RBC) [Ratio] 12.2 % Normal 11.0-15.0 [facility] Comment on above: Performed By: #### C BC #### [facility] [address] [address] [address] Arianna Hamlin Hematocrit (Bld) [Volume fraction] 35.9 % Critically low 36.0-48.0 [facility] Comment on above: Performed By: #### C BC #### [facility] [address] [place] [address] Dr. Arianna Hamlin Hemoglobin (Bld) [Mass/Vol] 12.0 g/dL Normal 12.0-16.0 [facility] Comment on above: Performed By: #### C BC #### [facility] [address] [place] [address] Dr. Arianna Hamlin IG # 0.02 10e3/ul Normal 0.00-0.03 [facility] Comment on above: Performed By: #### C BC #### [facility] [address] [place] [address] Dr. Arianna Hamlin IG % 0.3 % Normal 0.0-0.5 [facility] Comment on above: Performed By: #### C BC #### [facility] [address] [place] [address] Dr. Arianna Hamlin LYMPH # 1.8 103/ul Normal 1.2-3.8 [facility] Comment on above: Performed By: #### C BC #### [facility] [address] [place] [address] Dr. Arianna Hamlin Lymphocytes/100 WBC (Bld) 22.8 % Normal 20.5-60.0 [facility] Comment on above: Performed By: #### C BC #### [facility] [address] [place] [address] Dr. Arianna Hamlin MANUAL DIFF REQ NO Normal [facility] Comment on above: Performed By: #### C BC #### [facility] [address] [place] [address] Dr. Arianna Hamlin MCH (RBC) [Entitic mass] 27.8 pg Normal 26.7-34.0 [facility] Comment on above: Performed By: #### C BC #### [facility] [address] [address] [address] Arianna Hamlin MCHC (RBC) [Mass/Vol] 33.4 g/dL Normal 29.9-35.2 [facility] Comment on above: Performed By: #### C BC #### [facility] [address] [address] [address] Arianna Hamlin MCV (RBC) [Entitic vol] 83.1 fL Normal 81.0-99.0 [facility] Comment on above: Performed By: #### C BC #### [facility] [address] [address] [address] Arianna Hamlin MONO # 0.9 103/ul Critically high 0.3-0.8 [facility] Comment on above: Performed By: #### C BC #### [facility] [address] [place] [address] Dr. Arianna Hamlin Monocytes/100 WBC (Bld) 10.8 % Normal 1.7-12.0 [facility] Comment on above: Performed By: #### C BC #### [facility] [address] [address] [address] Arianna Hamlin NEUT # 5.2 103/ul Normal 1.4-6.5 [facility] Comment on above: Performed By: #### C BC #### [facility] [address] [place] [address] Dr. Arianna Hamlin Neutrophils/100 WBC (Bld) 65.7 % Normal 43.0-75.0 [facility] Comment on above: Performed By: #### C BC #### [facility] [address] [address] [address] Arianna Hamlin Platelet mean volume (Bld) [Entitic vol] 10.2 fL Normal 9.5-13.5 [facility] Comment on above: Performed By: #### C BC #### [facility] [address] [address] [address] Arianna Hamlin PLT 243 103/ul Normal 150-450 [facility] Comment on above: Performed By: #### C BC #### [facility] [address] [place] [address] Dr. Arianna Hamlin RBC 4.32 106/ul Normal 4.20-5.40 [facility] Comment on above: Performed By: #### C BC #### [facility] [address] [place] [address] Dr. Arianna Hamlin WBC 7.9 103/ul Normal 4.0-11.0 [facility] Comment on above: Performed By: #### C BC #### [facility] [address] [place] [address] Dr. Arianna Hamlin PROF CHEM 8 (BAS METB)on Anion gap [Moles/Vol] 10.8 mmol/L Normal [facility] Comment on above: Performed By: #### B MP #### [facility] [address] [place] [address] Dr. Arianna Hamlin Calcium [Mass/Vol] 9.0 mg/dL Normal 8.5-10.1 [facility] Comment on above: Performed By: #### B MP #### [facility] [address] [place] [address] Dr. Arianna Hamlin Chloride [Moles/Vol] 101 mmol/L Normal 98-107 [facility] Comment on above: Performed By: #### B MP #### [facility] [address] [place] [address] Dr. Arianna Hamlin CO2 [Moles/Vol] 30.8 mmol/L Normal 21.0-32.0 [facility] Comment on above: Performed By: #### B MP #### [facility] [address] [place] [address] Dr. Arianna Hamlin Creatinine [Mass/Vol] 0.79 mg/dL Normal 0.55-1.02 [facility] Comment on above: Performed By: #### B MP #### [facility] [address] [place] [address] Dr. Arianna Hamlin EGFR-AF MONTENEGRIN >60 Normal >=60 [facility] Comment on above: Performed By: #### B MP #### [facility] [address] [place] [address] Dr. Arianna Hamlin EGFR-NON AF MONTENEGRIN >60 Normal >=60 [facility] Comment on above: Performed By: #### B MP #### [facility] [address] [address] [address] Arianna Hamlin Glucose [Mass/Vol] 110 mg/dL Critically high 74-106 [facility] Comment on above: Performed By: #### B MP #### [facility] [address] [address] [address] Arianna Hamlin Potassium [Moles/Vol] 3.6 mmol/L Normal 3.5-5.1 [facility] Comment on above: Performed By: #### B MP #### [facility] [address] [address] [address] Arianna Hamlin Sodium [Moles/Vol] 139 mmol/L Normal 136-145 [facility] Comment on above: Performed By: #### B MP #### [facility] [address] [address] [address] Arianna Hamlin Urea nitrogen [Mass/Vol] 8.0 mg/dL Normal 7.0-18.0 [facility] Comment on above: Performed By: #### B MP #### [facility] [address] [address] [address] Arianna Hamlin Urea nitrogen/Creatinine [Mass ratio] 10.1 mg/mg Normal [facility] Comment on above: Performed By: #### B MP #### [facility] [address] [address] [address] Arianna Hamlin UA RANDOMon 08-15-2022 Bilirubin Ql (U) Negative Normal NEGATIVE [facility] Comment on above: Performed By: #### C BC #### [facility] [address] [address] [address] Arianna Hamlin Clarity (U) CLEAR Normal CLEAR [facility] Comment on above: Performed By: #### C BC #### [facility] [address] [address] [address] Arianna Hamlin Glucose Ql (U) Negative Normal NEGATIVE [facility] Comment on above: Performed By: #### C BC #### [facility] [address] [place] [address] Dr. Arianna Hamlin Hemoglobin Ql (U) Negative Normal NEGATIVE [facility] Comment on above: Performed By: #### C BC #### [facility] [address] [address] [address] Arianna Hamlin Ketones Ql (U) Negative Normal NEGATIVE [facility] Comment on above: Performed By: #### C BC #### [facility] [address] [address] [address] Arianna Hamlin LEUKOCYTES MODERATE Abnormal NEGATIVE [facility] Comment on above: Performed By: #### C BC #### [facility] [address] [place] [address] Dr. Arianna Hamlin Nitrite Ql (U) Negative Normal NEGATIVE [facility] Comment on above: Performed By: #### C BC #### [facility] [address] [place] [address] Dr. Arianna Hamlin pH (U) 7.0 [pH] Normal 5-9 [facility] Comment on above: Performed By: #### C BC #### [facility] [address] [place] [address] Dr. Arianna Hamlin SPEC GRAVITY 1.010 Normal 1.005-<=1.025 [facility] Comment on above: Performed By: #### C BC #### [facility] [address] [place] [address] Dr. Arianna Hamlin UA PROTEIN Negative Normal NEGATIVE/ TRACE [facility] Comment on above: Performed By: #### C BC #### [facility] [address] [place] [address] Dr. Arianna Hamlin Urobilinogen Qn (U) 0.2 {Ayden'U}/dL Normal 0.2 - 1. 0 [facility] Comment on above: Performed By: #### C BC #### [facility] [address] [place] [address] Dr. Arianna Hamlin XR FOOT RT 2Von [...] BARBARA HERNANDEZ Date: 2022-08-15 08:59 Normal [facility] POINT OF CARE GLUCOSEon 07-30 Glucose [Mass/Vol] 138 mg/dL Critically high 74-106 [facility] Comment on above: Performed By: #### P OCGLUC #### [facility] [address] [place] [address] Dr. Arianna Hamlni Glucose [Mass/Vol] 94 mg/dL Normal 74-106 [facility] Comment on above: Performed By: #### P OCGLUC #### [facility] [address] [place] [address] Dr. Arianna Hamlin CBC AUTO DIFFon 08-08-2022 BASO # 0.0 103/ul Normal 0.0-0.1 [facility] Comment on above: Performed By: #### C BC #### [facility] [address] [place] [address] Dr. Arianna Hamlin Basophils/100 WBC (Bld) 0.7 % Normal 0.2-2.0 [facility] Comment on above: Performed By: #### C BC #### [facility] [address] [place] [address] Dr. Arianna Hamlin EO # 0.1 103/ul Normal 0.0-0.7 [facility] Comment on above: Performed By: #### C BC #### [facility] [address] [place] [address] Dr. Arianna Hamlin Eosinophils/100 WBC (Bld) 1.3 % Normal 0.9-7.0 [facility] Comment on above: Performed By: #### C BC #### [facility] [address] [place] [address] Dr. Arianna Hamlin Erythrocyte distribution width (RBC) [Ratio] 12.3 % Normal 11.0-15.0 [facility] Comment on above: Performed By: #### C BC #### [facility] [address] [place] [address] Dr. Arianna Hamlin Hematocrit (Bld) [Volume fraction] 38.4 % Normal 36.0-48.0 [facility] Comment on above: Performed By: #### C BC #### [facility] [address] [place] [address] Dr. Arianna Hamlin Hemoglobin (Bld) [Mass/Vol] 13.2 g/dL Normal 12.0-16.0 [facility] Comment on above: Performed By: #### C BC #### [facility] [address] [place] [address] Dr. Arianna Hamlin IG # 0.01 10e3/ul Normal 0.00-0.03 [facility] Comment on above: Performed By: #### C BC #### [facility] [address] [place] [address] Dr. Arianna Hamlin IG % 0.2 % Normal 0.0-0.5 [facility] Comment on above: Performed By: #### C BC #### [facility] [address] [place] [address] Dr. Arianna Hamlin LYMPH # 1.8 103/ul Normal 1.2-3.8 [facility] Comment on above: Performed By: #### C BC #### [facility] [address] [place] [address] Dr. Arianna Hamlin Lymphocytes/100 WBC (Bld) 30.8 % Normal 20.5-60.0 [facility] Comment on above: Performed By: #### C BC #### [facility] [address] [place] [address] Dr. Arianna Hamlin MANUAL DIFF REQ NO Normal [facility] Comment on above: Performed By: #### C BC #### [facility] [address] [place] [address] Dr. Arianna Hamlin MCH (RBC) [Entitic mass] 27.7 pg Normal 26.7-34.0 [facility] Comment on above: Performed By: #### C BC #### [facility] [address] [address] [address] Arianna Hamlin MCHC (RBC) [Mass/Vol] 34.4 g/dL Normal 29.9-35.2 [facility] Comment on above: Performed By: #### C BC #### [facility] [address] [address] [address] Arianna Hamlin MCV (RBC) [Entitic vol] 80.7 fL Critically low 81.0-99.0 [facility] Comment on above: Performed By: #### C BC #### [facility] [address] [place] [address] Dr. Arianna Hamlin MONO # 0.4 103/ul Normal 0.3-0.8 [facility] Comment on above: Performed By: #### C BC #### [facility] [address] [place] [address] Dr. Arianna Hamlin Monocytes/100 WBC (Bld) 7.1 % Normal 1.7-12.0 [facility] Comment on above: Performed By: #### C BC #### [facility] [address] [place] [address] Dr. Arianna Hamlin NEUT # 3.6 103/ul Normal 1.4-6.5 [facility] Comment on above: Performed By: #### C BC #### [facility] [address] [place] [address] Dr. Arianna Hamlin Neutrophils/100 WBC (Bld) 59.9 % Normal 43.0-75.0 [facility] Comment on above: Performed By: #### C BC #### [facility] [address] [place] [address] Dr. Arianna Hamlin Platelet mean volume (Bld) [Entitic vol] 9.5 fL Normal 9.5-13.5 [facility] Comment on above: Performed By: #### C BC #### [facility] [address] [place] [address] Dr. Arianna Hamlin PLT 248 103/ul Normal 150-450 [facility] Comment on above: Performed By: #### C BC #### [facility] [address] [place] [address] Dr. Arianna Hamlin RBC 4.76 106/ul Normal 4.20-5.40 [facility] Comment on above: Performed By: #### C BC #### [facility] [address] [place] [address] Dr. Arianna Hamlin WBC 5.9 103/ul Normal 4.0-11.0 [facility] Comment on above: Performed By: #### C BC #### [facility] [address] [place] [address] Dr. Arianna Hamlin Covid-19 PCR (CVDTB)on 07-30 SARS-CoV-2 (COVID-19) RNA RICHARD+probe Ql (Unsp spec) Not detected Normal NOT DETECTED [facility] Comment on above: Result Comment: This test is not yet approved or cleared by the [place] FDA. When there are no FDA-approved or cleared tests available, and other criteria are met, FDA can make tests available under an emergency access mechanism called an Emergency Use Authorization (EUA). The EUA for this test is supported by the [place] of Health and Human Service's (HHS's) [...] SARS-CoV-2. Performed By: #### C VDTBH #### [facility] [address] [place] [address] Dr. Arianna Hamlin PROF CHEM 8 (BAS METB)on Anion gap [Moles/Vol] 10.1 mmol/L Normal [facility] Comment on above: Performed By: #### B MP #### [facility] [address] [place] [address] Dr. Arianna Hamlin Calcium [Mass/Vol] 9.2 mg/dL Normal 8.5-10.1 [facility] Comment on above: Performed By: #### B MP #### [facility] [address] [address] [address] Arianna Hamlin Chloride [Moles/Vol] 103 mmol/L Normal 98-107 [facility] Comment on above: Performed By: #### B MP #### [facility] [address] [address] [address] Arianna Hamlin CO2 [Moles/Vol] 30.7 mmol/L Normal 21.0-32.0 [facility] Comment on above: Performed By: #### B MP #### [facility] [address] [place] [address] Dr. Arianna Hamlin Creatinine [Mass/Vol] 0.86 mg/dL Normal 0.55-1.02 [facility] Comment on above: Performed By: #### B MP #### [facility] [address] [address] [address] Arianna Hamlin EGFR-AF MONTENEGRIN >60 Normal >=60 [facility] Comment on above: Performed By: #### B MP #### [facility] [address] [place] [address] Dr. Arianna Hamlin EGFR-NON AF MONTENEGRIN >60 Normal >=60 [facility] Comment on above: Performed By: #### B MP #### [facility] [address] [place] [address] Dr. Arianna Hamlin Glucose [Mass/Vol] 77 mg/dL Normal 74-106 [facility] Comment on above: Performed By: #### B MP #### [facility] [address] [address] [address] Arianna Hamlin Potassium [Moles/Vol] 3.8 mmol/L Normal 3.5-5.1 [facility] Comment on above: Performed By: #### B MP #### [facility] [address] [place] [address] Dr. Arianna Hamlin Sodium [Moles/Vol] 140 mmol/L Normal 136-145 [facility] Comment on above: Performed By: #### B MP #### [facility] [address] [address] [address] Arianna Hamlin Urea nitrogen [Mass/Vol] 8.0 mg/dL Normal 7.0-18.0 [facility] Comment on above: Performed By: #### B MP #### [facility] [address] [id number] Arianna Hamlin Urea nitrogen/Creatinine [Mass ratio] 9.3 mg/mg Normal [facility] Comment on above: Performed By: #### B MP #### [facility] [address] [address] [address] Arianna Hamlin Covid-19 PCR ([facility])on SARS-CoV-2 (COVID-19) RNA RICHARD+probe Ql (Unsp spec) Not detected Normal NOT DETECTED [facility] Comment on above: Result Comment: This test is not yet approved or cleared by the [place] FDA. When there are no FDA-approved or cleared tests available, and other criteria are met, FDA can make tests available under an emergency access mechanism called an Emergency Use Authorization (EUA). The EUA for this test is supported by the [place] of Health and Human Service's (HHS's) [...] SARS-CoV-2. Performed By: #### B MP #### [facility] [address] [place] [address] Dr. Arianna Hamlin MRI ANKLE RT WO [...] DALTON ALVARENGA Date: 2022-06-24 12:09 Normal [facility] H PYLORI TISSUEon 05-17-2022 H PYL TISSUE, UREASE Negative Normal NEGATIVE [facility] Comment on above: Performed By: #### B MP #### [facility] [address] [place], [place] [address] Dr. Arianna Hamlin Covid-19 PCR ([facility])on 04-29 SARS-CoV-2 (COVID-19) RNA RICHARD+probe Ql (Unsp spec) Not detected Normal NOT DETECTED [facility] Comment on above: Result Comment: This test is not yet approved or cleared by the [place] FDA. When there are no FDA-approved or cleared tests available, and other criteria are met, FDA can make tests available under an emergency access mechanism called an Emergency Use Authorization (EUA). The EUA for this test is supported by the [place] of Health and Human Service's (HHS's) [...] SARS-CoV-2. Performed By: #### C VDTBH #### [facility] [address] [place], [place] [address] Dr. Arianna Halmin FLORINA by IFAon 05-11-2022 Antinuclear Antibodies, IFA Negative Normal [facility] Comment on above: Result Comment: Nega tive <1:80 Borderline 1:80 Positive >1:80 ICAP nomenclature: AC-0 For more information about Hep-2 cell patterns use ANApatterns.org, the official website for the International Consensus on Antinuclear Antibody ([place]) Patterns (ICAP). Performed By: #### B MP #### [facility] [address] [place] [address] Dr. Arianna Hamlin CULTURE URINEon 05-11-2022 CULTURE [...] Trimethoprim/Sulfameth oxazole <=20 S C Normal [facility] Comment on above: Performed By: #### C BC #### [facility] [address] [place] [address] Dr. Arianna Hamlin ANTISTREPTOLYSIN O AB (ASO)o n 05-10-2022 Antistreptolysin O Ab 45.8 IU/mL Normal 0.0-200.0 [facility] Comment on above: Performed By: #### C BC #### [facility] [address] [place] [address] Dr. Arianna Hamlin RHEUMATOID FACTORon 05-10-20 RA Latex Turbid. <10.0 Normal <14.0 [facility] Comment on above: Performed By: #### B MP #### [facility] [address] [place] [address] Dr. Arianna Hamlin CRPon 05-08-2022 CRP [Mass/Vol] mg/L Normal <=1.0 [facility] Comment on above: Performed By: #### C BC #### [facility] [address] [place] [address] Dr. Arianna Hamlin UA RANDOM W/MICROSCOPICon BACTERIA LARGE Abnormal NONE SEEN [facility] Comment on above: Performed By: #### U AMIC #### [facility] [address] [address] [address] Arianna Hamlin Bilirubin Ql (U) Negative Normal NEGATIVE [facility] Comment on above: Performed By: #### U AMIC #### [facility] [address] [address] [address] Arianna Hamlin CAST NONE SEEN Normal NONE SEEN [facility] Comment on above: Performed By: #### U AMIC #### [facility] [address] [address] [address] Arianna Hamlin Clarity (U) CLEAR Normal CLEAR [facility] Comment on above: Performed By: #### U AMIC #### [facility] [address] [place] [address] Dr. Arianna Hamlin Color (U) LT. YELLOW Normal YELLOW [facility] Comment on above: Performed By: #### U AMIC #### [facility] [address] [address] [address] Arianna Hamlin Crystals LM Nom (Urine sed) NONE SEEN Normal NONE SEEN [facility] Comment on above: Performed By: #### U AMIC #### [facility] [address] [place] [address] Dr. Arianna Hamlin Epithelial cells LM Ql (Urine sed) FEW Abnormal NONE SEEN /RARE [facility] Comment on above: Performed By: #### U AMIC #### [facility] [address] [address] [address] Arianna Hamlin Glucose Ql (U) Negative Normal NEGATIVE [facility] Comment on above: Performed By: #### U AMIC #### [facility] [address] [address] [address] Arianna Hamlin Hemoglobin Ql (U) SMALL Abnormal NEGATIVE [facility] Comment on above: Performed By: #### U AMIC #### [facility] [address] [place] [address] Dr. Arianna Hamlin Ketones Ql (U) TRACE Abnormal NEGATIVE [facility] Comment on above: Performed By: #### U AMIC #### [facility] [address] [address] [address] Arianna Hamlin LEUKOCYTES MODERATE Abnormal NEGATIVE [facility] Comment on above: Performed By: #### U AMIC #### [facility] [address] [address] [address] Arianna Hamlin MUCOUS NONE SEEN Normal NONE SEEN [facility] Comment on above: Performed By: #### U AMIC #### [facility] [address] [address] [address] Arianna Hamlin Nitrite Ql (U) Positive Abnormal NEGATIVE [facility] Comment on above: Performed By: #### U AMIC #### [facility] [address] [address] [address] Arianna Hamlin pH (U) 6.0 [pH] Normal 5-9 [facility] Comment on above: Performed By: #### U AMIC #### [facility] [address] [place] [address] Dr. Arianna Hamlin RBC 2-5 Abnormal 0-2 [facility] Comment on above: Performed By: #### U AMIC #### [facility] [address] [address] [address] Arianna Hamlin SPEC GRAVITY >=1.030 Abnormal 1.005-<=1.025 [facility] Comment on above: Performed By: #### U AMIC #### [facility] [address] [address] [address] Arianna Hamlin UA PROTEIN Negative Normal NEGATIVE/ TRACE [facility] Comment on above: Performed By: #### U AMIC #### [facility] [address] [place] [address] Dr. Arianna Hamlin Urobilinogen Qn (U) 0.2 {Ayden'U}/dL Normal 0.2 - 1. 0 [facility] Comment on above: Performed By: #### U AMIC #### [facility] [address] [place] [address] Dr. Arianna Hamlin WBC 20-50 Abnormal NONE SEEN [facility] Comment on above: Performed By: #### U AMIC #### [facility] [address] [place] [address] Dr. Arianna Hamlin URIC ACID SERUMon 05-08-2022 Urate [Mass/Vol] 4.1 mg/dL Normal 2.6-6.0 [facility] Comment on above: Performed By: #### U BETY, CRP #### [facility] [address] [place] [address] Dr. Arianna Hamlin CBC AUTO DIFFon 01-24-2022 BASO # 0.1 103/ul Normal 0.0-0.1 [facility] Comment on above: Performed By: #### C BC #### [facility] [address] [place] [address] Dr. Arianna Hamlin Basophils/100 WBC (Bld) 0.9 % Normal 0.2-2.0 [facility] Comment on above: Performed By: #### C BC #### [facility] [address] [place] [address] Dr. Arianna Hamlin EO # 0.1 103/ul Normal 0.0-0.7 [facility] Comment on above: Performed By: #### C BC #### [facility] [address] [place] [address] Dr. Arianna Hamlin Eosinophils/100 WBC (Bld) 2.2 % Normal 0.9-7.0 [facility] Comment on above: Performed By: #### C BC #### [facility] [address] [place] [address] Dr. Arianna Hamlin Erythrocyte distribution width (RBC) [Ratio] 12.7 % Normal 11.0-15.0 [facility] Comment on above: Performed By: #### C BC #### [facility] [address] [place] [address] Dr. Arianna Hamlin Hematocrit (Bld) [Volume fraction] 42.6 % Normal 36.0-48.0 [facility] Comment on above: Performed By: #### C BC #### [facility] [address] [place] [address] Dr. Arianna Hamlin Hemoglobin (Bld) [Mass/Vol] 14.2 g/dL Normal 12.0-16.0 [facility] Comment on above: Performed By: #### C BC #### [facility] [address] [place] [address] Dr. Arianna Hamlin IG # 0.02 10e3/ul Normal 0.00-0.03 [facility] Comment on above: Performed By: #### C BC #### [facility] [address] [place] [address] Dr. Arianna Hamlin IG % 0.4 % Normal 0.0-0.5 [facility] Comment on above: Performed By: #### C BC #### [facility] [address] [place] [address] Dr. Arianna Hamlin LYMPH # 2.0 103/ul Normal 1.2-3.8 [facility] Comment on above: Performed By: #### C BC #### [facility] [address] [place] [address] Dr. Arianna Hamlin Lymphocytes/100 WBC (Bld) 38.1 % Normal 20.5-60.0 [facility] Comment on above: Performed By: #### C BC #### [facility] [address] [place] [address] Dr. Arianna Hamlin MANUAL DIFF REQ NO Normal [facility] Comment on above: Performed By: #### C BC #### [facility] [address] [place] [address] Dr. Arianna Hamlin MCH (RBC) [Entitic mass] 28.1 pg Normal 26.7-34.0 [facility] Comment on above: Performed By: #### C BC #### [facility] [address] [place] [address] Dr. Arianna Hamlin MCHC (RBC) [Mass/Vol] 33.3 g/dL Normal 29.9-35.2 [facility] Comment on above: Performed By: #### C BC #### [facility] [address] [place] [address] Dr. Arianna Hamlin MCV (RBC) [Entitic vol] 84.4 fL Normal 81.0-99.0 [facility] Comment on above: Performed By: #### C BC #### [facility] [address] [place] [address] Dr. Arianna Hamlin MONO # 0.4 103/ul Normal 0.3-0.8 [facility] Comment on above: Performed By: #### C BC #### [facility] [address] [place] [address] Dr. Arianna Hamlin Monocytes/100 WBC (Bld) 7.3 % Normal 1.7-12.0 [facility] Comment on above: Performed By: #### C BC #### [facility] [address] [place] [address] Dr. Arianna Hamlin NEUT # 2.7 103/ul Normal 1.4-6.5 [facility] Comment on above: Performed By: #### C BC #### [facility] [address] [place] [address] Dr. Arianna Hamlin Neutrophils/100 WBC (Bld) 51.1 % Normal 43.0-75.0 [facility] Comment on above: Performed By: #### C BC #### [facility] [address] [place] [address] Dr. Arianna Hamlin Platelet mean volume (Bld) [Entitic vol] 9.8 fL Normal 9.5-13.5 [facility] Comment on above: Performed By: #### C BC #### [facility] [address] [place] [address] Dr. Arianna Hamlin PLT 276 103/ul Normal 150-450 [facility] Comment on above: Performed By: #### C BC #### [facility] [address] [place] [address] Dr. Arianna Hamlin RBC 5.05 106/ul Normal 4.20-5.40 [facility] Comment on above: Performed By: #### C BC #### [facility] [address] [place] [address] Dr. Arianna Hamlin WBC 5.4 103/ul Normal 4.0-11.0 [facility] Comment on above: Performed By: #### C BC #### [facility] [address] [address] [address] Arianna Hamlin PROF 14(COMP METB)on 022 Albumin [Mass/Vol] 4.2 g/dL Normal 3.4-5.0 [facility] Comment on above: Performed By: #### B MP #### [facility] [address] [place] [address] Dr. Arianna Hamlin Albumin/Globulin [Mass ratio] 1.3 {ratio} Normal [facility] Comment on above: Performed By: #### B MP #### [facility] [address] [place] [address] Dr. Arianna Hamlin ALP [Catalytic activity/Vol] 92 U/L Normal 46-116 [facility] Comment on above: Performed By: #### B MP #### [facility] [address] [place] [address] Dr. Arianna Hamlin ALT [Catalytic activity/Vol] 25 U/L Normal 14-59 [facility] Comment on above: Performed By: #### B MP #### [facility] [address] [place] [address] Dr. Arianna Hamlin Anion gap [Moles/Vol] 10.4 mmol/L Normal [facility] Comment on above: Performed By: #### B MP #### [facility] [address] [place] [address] Dr. Arianna Hamlin AST [Catalytic activity/Vol] 20 U/L Normal 15-37 [facility] Comment on above: Performed By: #### B MP #### [facility] [address] [place] [address] Dr. Arianna Hamlin Bilirubin [Mass/Vol] 0.2 mg/dL Normal 0.2-1.0 [facility] Comment on above: Performed By: #### B MP #### [facility] [address] [place] [address] Dr. Arianna Hamlin Calcium [Mass/Vol] 9.0 mg/dL Normal 8.5-10.1 [facility] Comment on above: Performed By: #### B MP #### [facility] [address] [place] [address] Dr. Arianna Hamlin Chloride [Moles/Vol] 103 mmol/L Normal 98-107 [facility] Comment on above: Performed By: #### B MP #### [facility] [address] [address] [address] Arianna Hamlin CO2 [Moles/Vol] 29.7 mmol/L Normal 21.0-32.0 [facility] Comment on above: Performed By: #### B MP #### [facility] [address] [address] [address] Arianna Hamlin Creatinine [Mass/Vol] 0.87 mg/dL Normal 0.55-1.02 [facility] Comment on above: Performed By: #### B MP #### [facility] [address] [place] [address] Dr. Arianna Hamlin EGFR-AF MONTENEGRIN >60 Normal >=60 [facility] Comment on above: Performed By: #### B MP #### [facility] [address] [address] [address] Arianna Hamlin EGFR-NON AF MONTENEGRIN >60 Normal >=60 [facility] Comment on above: Performed By: #### B MP #### [facility] [address] [place] [address] Dr. Arianna Hamlin Globulin (S) [Mass/Vol] 3.3 g/dL Normal [facility] Comment on above: Performed By: #### B MP #### [facility] [address] [address] [address] Arianna Hamlin Glucose [Mass/Vol] 99 mg/dL Normal 74-106 [facility] Comment on above: Performed By: #### B MP #### [facility] [address] [address] [address] Arianna Hamlin Potassium [Moles/Vol] 4.1 mmol/L Normal 3.5-5.1 [facility] Comment on above: Performed By: #### B MP #### [facility] [address] [place] [address] Dr. Arianna Hamlin Protein [Mass/Vol] 7.5 g/dL Normal 6.4-8.2 [facility] Comment on above: Performed By: #### B MP #### [facility] [address] [address] [address] Arianna Hamlin Sodium [Moles/Vol] 139 mmol/L Normal 136-145 [facility] Comment on above: Performed By: #### B MP #### [facility] [address] [address] [address] Arianna Hamlin Urea nitrogen [Mass/Vol] 11.0 mg/dL Normal 7.0-18.0 [facility] Comment on above: Performed By: #### B MP #### [facility] [address] [address] [address] Arianna Hamlin Urea nitrogen/Creatinine [Mass ratio] 12.6 mg/mg Normal [facility] Comment on above: Performed By: #### B MP #### [facility] [address] [address] [address] Arianna Hamlin Provider Letteron 09-06-2021 Provider Letter September 06, 2021 SIMIN CARO [address] [place] [id number] SIMIN CARO 1970 Dear Simin_ , We have been trying to reach you with no success. It is important that you return our call regarding your referral from Melinda Rodriguez upon receiving this letter. Also, at the time of your call, please provide us with your correct phone number. . Thank you for your prompt attention to this matter. Sincerely, General Surgery [phone] Normal [facility] Physician Referralon 022 Physician Referral [phone] [id number] Normal [facility] Vital Signs Date Time Vital Sign Value Performing Clinician Clarence cannon 02-03-2022 12:15-0400 Body height 160.02 cm Rai Alvarenga Other [facility] 02-03-2022 12:15-0400 Body mass index (BMI) [Ratio] 36.13 kg/m2 Rai Alvarenga Other [facility] 02-03-2022 12:15-0400 Body weight 92.53 kg Rai Alvarenga Other [facility] Other 01-27-2022 09:00-0400 Body height 160.02 cm Rai Colette Other [facility] Other 01-27-2022 09:00-0400 Body mass index (BMI) [Ratio] 36.13 kg/m2 Rai Colette Other [facility] Other 01-27-2022 09:00-0400 Body weight 92.53 kg Rai Colette Other [facility] Other 10-31-2021 16:30-0400 Body height 160.02 cm Rai Alvarenga Other [facility] Other 10-31-2021 16:30-0400 Body mass index (BMI) [Ratio] 37.02 kg/m2 Rai Colette Other [facility] Other 10-31-2021 16:30-0400 Body weight 94.8 kg Rai Alvarenga Other [facility] Other Encounters Encounter Date Encounter Type Care Provider Facility Start: 01-07-2024 ambulatory Bryce Duran acility:[facility] Start: 12-19-2022 End: 12-20-2022 ambulatory KEL [...] Encounter for preprocedural laboratory examination [place] [facility] Start: 08-10-2022 ambulatory KEL VALENTINA Facility: [...] 02-03-2022 End: 02-03-2022 ambulatory Rai Alvarenga Other [facility] Other Start: 02-03-2022 Postop follow up vis it related to original px Rai Alvarenga [facility] Start: 01-27-2022 End: 01-27-2022 ambulatory Rai Alvarenga Other [facility] Other Start: 01-27-2022 Office outpatient vi sit 15 minutes Rai Alvarenga [facility] Start: 01-24-2022 End: 01-25-2022 ambulatory RAI ALVARENGA Facility:[facility] Start: 10-31-2021 End: 10-31-2021 ambulatory Rai Alvarenga Other [facility] Other Start: 10-31-2021 Office outpatient ne w 45 minutes Rai Avlarenga [facility] Immunizations Immunization Date Immunization Notes Care Provider Fa chaz 05-16-2021 influenza, injectabl e, quadrivalent, preservative free Rai Colette Other [facility] 01-01-2021 COVID-19 Vaccine Yari - Documentation Purposes Only Rai Colette Other [facility] Other Payers Date Payer Category Payer Unknown [id number] .. [id number] 1970 Unknown [id number] ..[id number] [id number] 1970 Unknown [id number] .. 0.1.798163.3.579.2.593 1970 Unknown [id number] ..[id number] 0.1.220631.3.579.2.593 1970 Unknown [id number] .16.84 0.1.130275.3.579.2.593 1970 Unknown [id number] ..[id number] 0.1.396068.3.579.2.593 1970 Unknown [id number] ..[id number] 0.1.740799.3.579.2.593 1970 Unknown [id number] 2.16.84 0.1.895721.3.579.2.593 1970 Unknown [id number] 2.16.84 0.1.624205.3.579.2.593 1970 Unknown [id number] 2.16.84 0.1.729779.3.579.2.593 1970 Unknown [id number] 2.16.84 0.1.685129.3.579.2.593 1970 Unknown [id number] 2.16.84 0.1.019010.3.579.2.593 1970 Unknown [id number] 2.16.84 0.1.615410.3.579.2.593 1970 Unknown [id number] 2.16.84 0.1.338260.3.579.2.593 1970 Unknown [id number] 2.16.84 0.1.555405.3.579.2.593 1970 Unknown [id number] 2.16.84 0.1.570827.3.579.2.593 1970 Unknown [id number] 2.16.84 0.1.835735.3.579.2.593 1970 Unknown [id number] 2.16.84 0.1.785123.3.579.2.593 1970 Unknown [id number] 2.16.84 0.1.696548.3.579.2.593 1970 Unknown [id number] 2.16.84 0.1.121095.3.579.2.593 1970 Unknown [id number] 2.16.84 0.1.355725.3.579.2.593 1970 Unknown [id number] 2.16.84 0.1.250252.3.579.2.593 1959 Blue Cross Blue Shield [id number] 2.16.840.1.081233.19 1959 Self-pay Unknown [id number] 2.16.8 40.1.413836.3.579.2.531 Social History Date Type Detail Facility Sex Assigned At [facility] Other Clinical Notes 10-31-2021 to 12-19-2022 Note [...] by: LARISSA CHOI Date: 2022-12-19 11:40 [facility] 10-19-2022 Note PROCEDURE: XR FOOT R [...] by: TERI KAY Date: 2022-10-19 08:47 [facility] 09-28-2022 Note PROCEDURE: XR FOOT R [...] by: BARBARA HERNANDEZ Date: 2022-09-28 16:30 [facility] 09-08-2022 Note PROCEDURE: XR FOOT R [...] authenticated by: TERI KAY Date: 2022-09-08 07:03 [facility] 08-15-2022 Note PROCEDURE: XR FOOT R [...] authenticated by: BARBARA HERNANDEZ Date: 2022-08-15 08:58 [facility] 08-15-2022 Note PROCEDURE: XR FOOT R [...] authenticated by: BARBARA HERNANDEZ Date: 2022-08-15 08:58 [facility] 06-15-2022 Note PROCEDURE: XR FOOT R T MIN 3 VIEWS COMPARISON: 09/08/2021 HISTORY: Pain in right foot FINDINGS: BONES:No acute fracture or dislocation. Stable vjgg-ev-udtsijsm degenerative change with joint space narrowing marginal osteophyte formation most significant in the midfoot SOFT TISSUES:Negative. No visible soft tissue swelling. EFFUSION:None visible. OTHER: Negative. IMPRESSION: Stable degenerative changes Electronically authenticated by: BARBARA HERNANDEZ Date: 2022-06-15 08:48 [facility] 02-03-2022 Evaluation note Encounter Date Diagnosis [...] - M65.331) Currently resolved. Continue to monitor [facility] 07-01-2022 Evaluation note* Encounter Date Diagnosis [...] as documented in the electronic medical record. 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 I have advised against the alf use of narcotic pain medication. I have [...] as documented in the electronic medical record. [facility] Other History general Narrative - Reported* Type Description Date Medical History Hypertension Medical History chronic depression Medical History hearing loss Surgical History hysterectomy-partial 2016 [facility] Other Summary Purpose Family History No Family History Records FoundNo Family History Records FoundNo Family History Records Found Advance Directives No Advanced Directives Records FoundNo Advanced Directives Records FoundNo Advanced Directives Records Found Additional Source Comments REASON FOR VISIT (unrecogniz ed section and content) Bilateral Carpal TunnelRight Hip PainRecheck Left Wrist INFORMATION SOURCE (unrecogn ized section and content) DATE CREATED AUTHOR 02/17/2022 [facility] [employer] [facility] DATE CREATED AUTHOR AUTHOR'S ORGANIZ ATION 01/05/2023 [facility] DATE CREATED AUTHOR AUTHOR'S ORGANIZ ATION 03/28/2024 [facility] FOR RECORDS PERTAINING TO PATIENTS WHO [...] BE BASED ON THE PRIMARY CLINICAL RECORDS. [facility]. provides no warranty or guarantee of the accuracy or completeness of information in this document.
== END 2024-08-27 10:41 | disposition home or self-care (01) ==
LOC: CT 10:40
PROVIDERS: PCP Nurse Practitioner Family; Visit Provider Podiatrist Foot & Ankle Surgery
DX: M96.0 Pseudarthrosis after fusion or arthrodesis (principal)
CPT/HCPCS: 73700

== ENCOUNTER 2025-01-05 13:07 | Outpatient (OUT) | payer BC, SELFPAY ==
--- NOTE | 2025-01-05 13:09 | MM_ITS ---
Patient Name: LAWRENCE LIZAMA MR#: [id number] : 1970 Exam Date: 01/05/2025 Ordering Doctor: KEL MONTGOMERY CNP RADIOLOGY REPORT PROCEDURE: MM TOMOSYNTHESIS SCREENING BI COMPARISON: MM TOMOSYNTHESIS SCREENING BI, 12/27/2023. INDICATIONS: Screening Calculator Name NCI Breast Cancer Risk Assessment Tool 5 Year Breast Cancer Risk 1.10% Lifetime Breast Cancer Risk 8.20% Personal Breast Cancer No Personal Ovarian Cancer No Treatments None Family Cancers Father with bone cancer at age 69. LOCATION: [facility] BREAST COMPOSITION: There are scattered areas of fibroglandular density. FINDINGS: DIAGNOSTIC CATEGORY 1--NEGATIVE. RIGHT BREAST: No significant suspicious finding. LEFT BREAST: No significant suspicious finding. RECOMMENDATIONS: ROUTINE MAMMOGRAM AND CLINICAL EVALUATION IN 12 MONTHS. PLEASE NOTE: A NORMAL MAMMOGRAM DOES NOT EXCLUDE THE POSSIBILITY OF BREAST CANCER. A CLINICALLY SUSPICIOUS PALPABLE LUMP SHOULD BE BIOPSIED. Dictated by: Arcadio Ontiveros DO on 01/05/2025 at 15:55 Approved by: Arcadio Ontiveros DO on 01/05/2025 at 15:57
== END 2025-01-05 13:08 | disposition home or self-care (01) ==
LOC: MAMMO 13:07
PROVIDERS: PCP Nurse Practitioner Family; Visit Provider Nurse Practitioner Family
DX: Z12.31 Encounter for screening mammogram for malignant neoplasm of breast (principal); Z80.8 Family history of malignant neoplasm of other organs or systems
CPT/HCPCS: 77063; 77067

== ENCOUNTER 2025-01-21 10:30 | Outpatient (OUT) | payer BC, SELFPAY ==
--- OUTSIDE RECORDS SUMMARY | 2024-03-17 05:10 | XMS_ITS ---
Author Organization [facility] Address [address] [place] [address] Care Team Providers Care Glassware Maker Name Role Phone Dick Arroyo Primary Care Provider Julian Purvis Unavailable [phone] Houston Noel Unavailable [phone] REASON FOR VISIT LEFT KNEE PAIN Encounters Encounter Location Date Provider Diagnosis [facility] Office [address] [place] [address] [place] [address] 03/17/2024 Houston Noel Pain, joint, knee, left M25.562 Assessments Encounter Date Diagnosis (ICD Code) Assessment Notes Treatment Notes Treatment Clinical Notes Section Notes 03/17/2024 Pain, joint, knee, left (ICD-10 - M25.562) Plan Of Treatment Pending Test Test Name Order Date SCC- KNEE 4 VIEW LEFT-[id number] 03/17/2024 Progress Notes * LAWRENCE LIZAMA MDOB:1970 ( 54 yo F)Acc No.[id number]:03/17/2024 Patient: Juan C DE LA CRUZ LAWRENCE Meredith Provider: Calin Noel MD :1970 A ge:54 Y S ex:Female Date:03/17/2024 Address:[address] [place] [phone] Pcp:Dick Arroyo Subjective: * Chief Complaints: * 1 . LEFT KNEE PAIN. * Medical History: Objective: * Vitals: Assessment: * Assessment: 1. P ain, joint, knee, left - M25.562 Plan: * Treatment: Forms: * Images: * Electronic signature of Jose Armando Noel MD on 01/26/2025 at 12:51 PM EDT Sign off status: Pending * Provider: Calin Noel MD Date: 0 03/17/2024 Generated for Ivana garcia/Ana/Noel on: 0 01/26/2025 12:51 PM EDT
--- OUTSIDE RECORDS SUMMARY | 2025-01-08 09:00 | XMS_ITS ---
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 Name Role Phone Sarah Orantes Primary Care Provider Allergies Allergen (clinical drug ingredient) Drug/Non Drug Allergy documented on EMR Reaction Allergy Type Onset Date Status aspirin Aspirin stomach upset Drug Allergy Act vick Latex Latex rash Allergy Active Reason For Referral Reason snoring, fatigue Diagnosis 1 Snoring (R06.83) Referral Organization [facility] Medicine Referring Provider First Name Sarah Referring Provider Last Name Rolanda Referring Provider Speciality Family Med di Referred Provider Shefali Vasquez Referred Provider Specialty Sleep Medici ne Referral Priority Routine REASON FOR VISIT Presents to office alone asking for a referral for a sleep study, c/o trouble falling asleep, wakesup gasping for air, said was told during surgery that she shifts your breathing , c/o hair thinning Medications Medication SIG (Take, Route, Frequency, Duration) Notes Start Date End Date Status Vitamin D3 50 MCG (1999) TAKE 1 CAPSU LE BY MOUTH EVERY DAY FOR 90 DAYS for 90 Active Venlafaxine HCl ER 150 MG Take 1 capsule by mouth once daily Orally Once a day for 30 days Active Xanax 0.5 MG 1/2 to 1 tablet as needed Orally Twice a day for 7 days 08/12/2024 Active Venlafaxine HCl ER 75 MG TAKE 1 CAPSULE BY MOUTH EVERY DAY WITH FOOD for 90 Active Tylenol 325 MG 1 tablet as needed Orally every 6 hrs Active Lisinopril 20 MG TAKE 1 TABLET EVERY DAY for 90 Active Amitriptyline HCl 50 MG TAKE 2 TABLETS B Y MOUTH AT BEDTIME Orally Once a day for 30 days Active Social History Tobacco Use: Social History Observation Description Date Details (start date - stop date) Never Smoker NA - NA Tobacco Control (Standard) Question Answer Notes Tobacco use: Nonsmoker AUDIT-C (Standard) Question Answer Notes Did you have a drink containing alcohol in the p ast year? No Points 0 Interpretation Negative Section Notes: Former Smoker Vital Signs Weight 209.6 lbs 01/08/2025 Height 63 in 01/08/2025 Blood pressure systolic 122 mm Hg 01/09/20 25 Blood pressure diastolic 80 mm Hg 025 BMI 37.12 kg/m2 01/08/2025 Encounters Encounter Location Date Provider Diagnosis [facility] [address] [place] [address] 01/08/2025 Sarah Orantes Snoring R06.83 Assessments Encounter Date Diagnosis (ICD Code) Assessment Notes Treatment Notes Treatment Clinical Notes Section Notes 01/08/2025 Snoring (ICD-10 - R06.83) Plan Of Treatment Referrals Referral Date Details 01/08/2025 01/08/2025, snoring, fatigue, Shefali Pedro Next Appt Details Follow Up: prn, Reason: Progress Notes * Simin CARO MDOB:1970 ( 54 yo F)Acc No.[id number]:01/08/2025 Progress Note Patient: Simin AKERS Provider: Hannah Orantes ([facility]), [employer] :1970 A ge:54 Y S ex:Female Date:01/08/2025 Address:[address] [place], [place] [phone] Check In:12:58 PM ESTCheck O ut:01:21 PM EST Subjective: * Chief Complaints: * 1 . Presents to office alone asking for a referral for a sleep study. 2. C/o trouble falling asleep, wakes up gasping for air, said was told during surgery that she shifts your breathing . 3. C/o hair thinning. * HPI: G eneral: snoring, gasping for air, fatigue in am hair thinning and breaking for 20 years arthritis, did not see rheum yet going to call to schedule. * ROS: G eneral/Constitutional: Chronic fatigue a dmits. F ever d enies. H eadache d enies. W eight loss d enies. O phthalmologic: Discharge d enies. E ye Pain d enies. I tching and redness d enies. E NT: Nasal discharge d enies. N lisa congestion d enies.?Sore throat d enies. C ardiovascular: Chest tightness/ heavy pressure d enies. R apid heart rate d enies. S welling of extremities d enies. C hest pain d enies. ? R espiratory: Productive cough d enies. C hest pain d enies. C ough d enies. S hortness of breath d enies. W heezing d enies. ? G astrointestinal: Abdominal pain d enies. C onstipation d enies. D ecreased appetite d enies. D iarrhea d enies. N ausea d enies. V omiting?denies. G enitourinary: Urinary incontinence d enies. P ainful urination d enies. M usculoskeletal: Arthralgias/joint pain A dmits. B ack pain d enies. N monika pain d enies. M uscle aches d enies. S kin: Rash d enies. S kin lesion(s) d enies. ? s noring. * Active Problem List N99.89 Other postprocedural complications and disorders of genitourinary system Modified On:09/21/2022/U Status:confirmed N85.2 Enlarged uterus Modified On:09/21/2022/U Status:confirmed M21.171 Acquired varus defor mity of right foot Modified On:05/22/2023/U Status:confirmed Z09 Encounter for examin ation following surgery Modified On:10/18/2022/U Status:confirmed M76.821 Posterior tibial ten don dysfunction (PTTD) of right lower extremity Modified On:08/01/2023/U Status:confirmed M25.371 Instability of right ankle joint Modified On:05/22/2023/U Status:confirmed M24.571 Equinus contracture of right ankle Modified On:08/01/2023 Status:confirmed M21.071 Acquired valgus defo rmity of right foot Modified On:08/01/2023 Status:confirmed M19.071 Primary osteoarthrit is, right ankle and foot Modified On:10/26/2023 Status:confirmed M21.861 Other specified acqu ired deformities of right lower leg Modified On:09/21/2022 Status:confirmed D50.9 Iron deficiency anem ia, unspecified iron deficiency anemia type Modified On:09/21/2022 Status:confirmed Z90.710 H/O abdominal hyster ectomy Modified On:09/21/2022 Status:confirmed N95.1 Hot flashes, menopau gina Modified On:09/21/2022 Status:confirmed M21.6X1 Other acquired defor mities of right foot Modified On:09/21/2022 Status:confirmed M20.11 Hallux valgus of rig ht foot Modified On:09/21/2022 Status:confirmed I10 HTN (hypertension) Modified On:09/21/2022 Status:confirmed M19.071 Arthritis of right f oot Modified On:11/14/2022 Status:confirmed F41.9 Anxiety disorder, un specified Modified On:03/08/2023 Status:confirmed M96.0 Pseudarthrosis after fusion or arthrodesis Modified On:08/01/2023 Status:confirmed Z96.9 Presence of function al implant, unspecified Modified On:10/26/2023 Status:confirmed T84.84XA Pain due to internal orthopedic prosthetic devices, implants and grafts, initial encounter Modified On:08/01/2023 Status:confirmed M79.671 Right foot pain Modified On:10/18/2023 Status:confirmed I10 BP (high blood press ure) Modified On:01/30/2024 Status:confirmed D50.9 Anemia, iron deficie ncy Modified On:01/30/2024 Status:confirmed G47.00 Insomnia Modified On:01/30/2024 Status:confirmed E66.01 Class 3 obesity Modified On:05/14/2024W/U Status:confirmed M17.9 Osteoarthritis of kn ee Modified On:05/16/2024W/U Status:confirmed * Medical History: P rimary osteoarthritis, right ankle and foot, Other specified acquired deformities of right lower leg, Posterior tibial tendon dysfunction (PTTD) of right lower extremity, Other postprocedural complications and disorders of genitourinary system, Acquired varus deformity of right foot, Acquired valgus deformity of right foot, Equinus contracture of right ankle, Instability of right ankle joint, Iron deficiency anemia, unspecified iron deficiency anemia type, Enlarged uterus, Encounter for examination following surgery, H/O abdominal hysterectomy, Menopausal and female climacteric states, Hot flashes, menopausal, Pain in right ankle and joints of right foot, Pain in left ankle and joints of left foot, Pain in right foot, Other specified acquired deformities of musculoskeletal system, Ankle impingement syndrome, right, Other acquired deformities of right foot, Osteophyte, right foot, Hallux valgus of right foot, HTN (hypertension), Anemia. * Surgical History: A bdominal Hysterectomy with Bilateral Salpingectomy 07/25/2017, Dilation and Curettage of Uterus 2015, Laparoscopic Tubal Ligation 1992, RT Talonvicular and Tranverse Tarsal Joint Fusion, RT Subtalar Joint Fusion, RT Ankle Arthroscopy RT Gastric recession, [place] of distal Tibial Bone Graft 08/14/2022, Revision subtalar joint fusion 01/11/2024, Left knee replacement 09/16/24. * Hospitalization/Major Diagno stic Procedure: s ee above . * Family History: F ather: , Bone cancer, diagnosed with Other malignant neoplasm of unspecified site.?Mother: alive, neuropathy, fibromyalgia, arthritis, diagnosed with Unspecified essential hypertension, Unspecified polyarthropathy or polyarthritis, pelvic region and thigh. B rother(s): alive, mental health. 2 brother(s) - healthy. 2 son(s) , 1 daughter(s) - healthy. . * Social History: T obacco Use: T obacco Control (Standard) T obacco use: N onsmoker D rug/Alcohol: A ASCENCION-C (Standard) D id you have a drink containing alcohol in the past year? N o P oints 0 I nterpretation N egative F ormer Smoker. * Medications: T aking Amitriptyline HCl 50 MG Tablet TAKE 2 TABLETS BY MOUTH AT BEDTIME Orally Once a day , Taking Lisinopril 20 MG Tablet TAKE 1 TABLET EVERY DAY , Taking Tylenol(Acetaminophen) 325 MG Tablet 1 tablet as needed Orally every 6 hrs , Taking Venlafaxine HCl ER 75 MG Capsule Extended Release 24 Hour TAKE 1 CAPSULE BY MOUTH EVERY DAY WITH FOOD , Taking Venlafaxine HCl ER 150 MG Capsule Extended Release 24 Hour Take 1 capsule by mouth once daily Orally Once a day , Taking Vitamin D3 50 MCG (1999 UT) Capsule TAKE 1 CAPSULE BY MOUTH EVERY DAY FOR 90 DAYS , Taking Xanax(ALPRAZolam) 0.5 MG Tablet 1/2 to 1 tablet as needed Orally Twice a day , Medication List reviewed and reconciled with the patient * Allergies: L atex: rash, Aspirin: stomach upset. Objective: * Vitals: W t:209.6lbs, Ht: 63 in, BP:122/80mm Hg, BMI:37.12Index, Ht-cm: 160.02 cm, Wt-k.07 kg. * Examination: G eneral Examinations: GENERAL APPEARANCE: a lert and oriented, i n no acute distress. EYES: c onjunctiva normal, sclera non-icteric. NOSE: n ormal external appearance. LUNGS: c lear to auscultation bilaterally. CARDIO: r egular rate and rhythm, S1, S2 normal. ABDOMEN: s oft, nontender. MUSCULOSKELETAL: G ait and station normal. SKIN: w arm and dry. Assessment: * Assessment: 1. [facility] - R06.83 (Primary) Plan: * Treatment: * Preventive Medicine: Screenings/Counseling: B OK ACTION PLAN Above Normal BMI Follow-up D ietary management education, guidance, and counseling See treatment section of progress note for complete details of management plan. * Follow Up: p rn * * Electronically signed by Melinda Orantes , NGA, PROFESSOR OF ANTHROPOLOGY.[employer].[id number] on 01/09/2025 at 12:34 PM EDT Sign off status: Completed Visit Status: C HK (Check Out) true * Provider: Hannah Orantes ([facility]), [employer] Date: 01/08/2025 Generated for Ivana garcia/Ana/eTransmitting on: 0 01/26/2025 12:52 PM EDT History and Physical Notes * HPI (History of Present Illness) Category Sub-Category Detail Notes Category Not es General snoring, gasping for air, fatigue in am hair thinning and breaking for 20 years arthritis, did not see rheum yet going to call to schedule Examination Category Sub-Category Detail Notes Category Not es General Examinations GENERAL APPEARANCE: alert a nd oriented, in no acute distress EYES: conjunctiva normal, sclera non-icteric EARS: NOSE: normal external appe arance THROAT: CARDIO: regular rate and rhy thm, S1, S2 normal LUNGS: clear to auscultatio n bilaterally ABDOMEN: soft, nontender SKIN: warm and dry BACK: MUSCULOSKELETAL: Gait and station nor mal LYMPH NODES: Consultation Request Notes Referral Date Referring Provider Referred Provider Not es 01/08/2025 Sarah Orantes Nicole snoring, avelino mejia
--- OUTSIDE RECORDS SUMMARY | 2025-01-12 10:58 | XMS_ITS ---
Author Organization The [facility] in [place] Address [address] [place] [address] Care Team Providers Care Cost Control Specialist Name Role Phone Sarah Orantes Primary Care Provider REASON FOR VISIT PA approval for Home Study Encounters Encounter Location Date Provider Diagnosis [facility] [address] [place] [address] 01/12/2025 Sarah Orantes Plan Of Treatment No Information Progress Notes * Simin CARO MDOB:1970 ( 54 yo F)Acc No.[id number]:01/12/2025 Patient: Simin AKERS :1970 A ge:54 Y S ex:Female Address:[address] [place] [address] * true * Date: Generated for Griseli radha/Fareneeg/eTransmitting on: 0 01/26/2025 12:51 PM EDT
--- OUTSIDE RECORDS SUMMARY | 2025-01-21 09:58 | XMS_ITS ---
Author Organization The [facility] in [place] Address [address] [place] [address] Care Team Providers Care Senior Corporate Strategy Manager Name Role Phone Sarah Orantes Primary Care Provider REASON FOR VISIT handicap placard Encounters Encounter Location Date Provider Diagnosis [facility] [address] [place] [address] 01/21/2025 Sarah Orantes Plan Of Treatment No Information Progress Notes * Simin CARO MDOB:1970 ( 54 yo F)Acc No.[id number]:01/21/2025 Patient: Juan C DE LA CRUZSimin :1970 A ge:54 Y S ex:Female Address:[address] [place] [phone] Subjective: * Chief Complaints: * H andicap placard * Medical History: * Surgical History: * Hospitalization/Major Diagno stic Procedure: * Medications: Objective: * Vitals: * Physical Examination: Assessment: Plan: * Treatment: * Procedure Codes: * true * Date: Generated for Ivana garcia/Ana/eTransmitting on: 0 01/26/2025 12:51 PM EDT
--- OUTSIDE RECORDS SUMMARY | 2025-01-26 12:52 | XMS_ITS | Encounter Summary ---
Author Organization [facility] Address [address] [place] [address] Care Team Providers Care Inspection Machine Tender Name Role Phone Dick Arroyo MD Primary Care Provider + Sarah Orantes MD Unavailable [phone] Dick Arroyo MD Primary Care Provider + Encounter Details Date Type Department Care Team (Late st Contact Info) Description 01/01/2023 Abstract [facility] [address] [facility] [place] [place] [address] Mary Fisher MA Social History Tobacco Use Types Packs/Day Years Used Date Smoking Tobacco: Never Assessed Comments Unknown Sex and Gender Information Value Date Recorded Sex Assigned at Not on file Legal Sex Female 8:34 PM EDT Gender Identity Not on file Sexual Orientation Not on file documented as of this encounter Plan of Treatment Not on file documented as of this encounter Visit Diagnoses Not on filedocumented in this encounter Care Teams Inspection Machine Tender Relationship Specialty Start Date End Date Dick Arroyo MD PCP - General Family Medicine 01/16/23 12/04/24 Dick Arroyo MD [facility] [place] [address] PCP - General Family Medicine 12/05/24 Sarah Orantes MD [address] [place] [address] Referring Physician Family Medicine 12/05/24 documented as of this encounter
--- OUTSIDE RECORDS SUMMARY | 2025-01-26 12:52 | XMS_ITS | Encounter Summary ---
Author Organization [facility] Address [address] [place] [address] Care Team Providers Care Senior Insight Manager Name Role Phone Dick Arroyo MD Primary Care Provider + Sarah Orantes MD Unavailable [phone] Dick Arroyo MD Primary Care Provider + Encounter Details Date Type Department Care Team (Late st Contact Info) Description 11/15/2022 Abstract [facility] [address] [place] [address] [facility] Razo, [facility] [address] [place] [address] Social History Tobacco Use Types Packs/Day Years [...] on filedocumented in this encounter Care Teams Senior Insight Manager Relationship Specialty Start Date End Date Dick Arroyo MD PCP - General Family Medicine 01/16/23 12/04/24 Dick Arroyo MD [address] [place] [address] PCP - General Family Medicine 12/05/24 Sarah Orantes MD [address] [place] [phone] Referring Physician Family Medicine 12/05/24 documented as of this encounter
--- OUTSIDE RECORDS SUMMARY | 2025-01-26 12:52 | XMS_ITS | Clinical Summary ---
Author Organization [facility] Address [address] [place] [address] Care Team Providers Care Junior Programmer Name Role Phone Sarah Orantes MD Unavailable [phone] Dick Arroyo MD Primary Care Provider [phone] Social History Tobacco Use Types Packs/Day Years Used Date Smoking Tobacco: Never Assessed Comments Unknown Sex and Gender Information Value Date Recorded Sex Assigned at Not on file Legal Sex Female 8:34 PM EDT Gender Identity Not on file Sexual Orientation Not on file Plan of Treatment Health Maintenance Due Date Last Done Comments CT Colonography 1970 Colonoscopy 1970 Colorectal Cancer Screening 1970 FIT-DNA 1970 FIT 1970 FOBT 1970 Sigmoidoscopy 1970 Pap Smear 1991 Cervical Cancer Screening 02/06/2000 HPV/Cotest 02/06/2000 Mammogram 2010 Influenza Vaccine (Season Ended) 2025 05/13/2022, 05/16/2021, 05/16/2019, Additional history exists Insurance [facility] Care Teams Junior Programmer Relationship Specialty Start Date End Date Dick Arroyo MD [address] [place] [phone] PCP - General Family Medicine 12/05/24 Sarah Orantes MD [address] [place] [phone] Referring Physician Family Medicine 12/05/24
--- OUTSIDE RECORDS SUMMARY | 2025-01-26 12:52 | XMS_ITS | Encounter Summary ---
Author Organization [facility] Address [address] [place] [address] Care Team Providers Care Gasoline Power Shovel Operator Name Role Phone Dick Arroyo MD Primary Care Provider + Sarah Orantes MD Unavailable [phone] Dick Arroyo MD Primary Care Provider + Encounter Details Date Type Department Care Team (Late st Contact Info) Description 12/29/2022 Abstract [facility] [address] [facility] [place] [address] Mary Fisher MA Social History Tobacco Use [...] on filedocumented in this encounter Care Teams Gasoline Power Shovel Operator Relationship Specialty Start Date End Date Dick Arroyo MD PCP - General Family Medicine 01/16/23 12/04/24 Dick Arroyo MD [facility] [place] [address] PCP - General Family Medicine 12/05/24 Sarah Orantes MD [address] [place] [address] Referring Physician Family Medicine 12/05/24 documented as of this encounter
--- OUTSIDE RECORDS SUMMARY | 2025-01-26 12:52 | XMS_ITS | Clinical Summary ---
Author Organization [email or web address] Address [id number] [address] [place] [address] Care Team Providers Care Residential Leasing Manager Name Role Phone Rolanda Sarah Layton DEVELOPMENT DISABILITY SPECIALIST-VALVE REPAIRER RECLAMATION Primary Care Provider Allergies Active Allergy Reactions Criticality Noted Date Comments Aspirin Nausea And Vomiting High 05/08/2022 Latex Rash High 05/08/2022 Medications meloxicam (MOBIC) 15 mg tablet Take 15 mg by mouth in the morning. 03/06/2022 Active lisinopriL (PRINIVIL,ZESTRI L) 20 mg tablet Take 20 mg by mouth in the morning. 03/06/2022 Active venlafaxine XR (EFFEXOR-XR) 150 mg 24 hr capsule Take 150 mg by mouth in the morning. 05/06/2022 Active venlafaxine XR (EFFEXOR XR) 75 mg 24 hr capsule Take 75 mg by mouth in the morning. 05/06/2022 Active cholecalciferol (VITAMIN D3) 50,000 units capsule Take 50,000 Units by mouth once a week. 05/06/2022 Active amitriptyline (ELAVIL) 100 mg tablet Take 1 tablet (100 mg total) by mouth nightly. 05/06/2022 Active Active Problems Problem Noted Date Diagnosed Date Anemia 05/29/2022 Hearing loss 05/29/2022 Hypertension 05/29/2022 Family History Medical History Relation Name Comments Cancer Father bone Arthritis Mother Fibromyalgia Mother Heart disease Mother Neuropathy Mother Relation Name Status Comments Father Mother Alive Social History Tobacco Use Types Packs/Day Years Used Date Smoking Tobacco: Former Cigarettes Smokeless Tobacco: Never Tobacco Cessation:Counseling Given: Not Answered Alcohol Use Standard Drinks/Week Comments Not Currently 0 (1 standard drink = 0.6 oz pur e alcohol) Comments No Sex and Gender Information Value Date Recorded Sex Assigned at Not on file Legal Sex Female 9:04 AM EDT Gender Identity Not on file Sexual Orientation Not on file Last Filed Vital Signs Vital Sign Reading Time Taken Comments Blood Pressure 116/74 05/10/2022 2:31 PM EDT Pulse - - Temperature 36.3 C (97.3 F) 05/29/2022 3:47 PM EDT Respiratory Rate - - Oxygen Saturation - - Inhaled Oxygen Concentration - - Weight 84.4 kg (186 lb) 05/29/2022 3:47 PM EDT Height 160 cm (5' 3 ) 05/29/2022 3:47 PM EDT Body Mass Index 32.95 05/29/2022 3:47 PM EDT Plan of Treatment Health Maintenance Due Date Last Done Comments Depression Screening 1982 Tobacco Screening 1982 DTaP,Tdap and Td Vaccines (1 - Tdap) 1989 Zoster (Shingles) Vaccine (2 of 2) 07/08/2022 05/13/2022 Adult BMI Screening 05/29/2023 05/29/2022 Colonoscopy 07/05/2023 07/05/2022 COVID-19 Vaccine (2 - 2023-2 5 season) 2024 01/01/2021 Influenza Vaccine 03/30/2025 05/13/2022, , 05/16/2019, Additional history exists Pap Smear 05/10/2025 05/10/2022, 05/10/2022 Medical Devices Not on file Procedures Procedure Name Priority Date/Time Associated Diagnosis Comments COLONOSCOPY Routine 07/05/2022 Abdominal pain, unspecified abdominal location Rectal bleeding HIGH RISK HPV W/DAMIEN Routine 05/10/2022 8:12 AM EDT from Last 3 Months or Most Recently Relevant to Health Maintenance Results * Colonoscopy (07/05/2022) us Joel Hooks DO GI PROCEDURE ORDERABLES Royal latisha Result - Final MANUALLY TRANSCRIBED RESULTS * High risk HPV w/damien (05/10/2022 8:12 AM EDT) Hpv specimen type ThinPrep 05/11/2022 8:13 AM EDT [facility] Hpv 16 Negative Negative^N egative 05/13/2022 6:25 AM EDT [facility] Hpv 18 Negative Negative^N egative 05/13/2022 6:25 AM EDT [facility] Other high risk hpv Negative Negative^N egative 05/13/2022 6:25 AM EDT [facility] Comment: HPV types 31,33,35,39,45,52,56,58,59,66 and 68 DNA were undetectable. THINP 05/10/2022 8:12 AM EDT 05/11/2022 8:12 AM EDT us Marcia Guzman DEVELOPMENT DISABILITY SPECIALIST-VALVE REPAIRER RECLAMATION LAB BLOOD ORDERABLES Fin al Result [facility] [address] [facility] [address] [place] [address] from Last 3 Months or Most Recently Relevant to Health Maintenance Insurance ANTH Care Teams Residential Leasing Manager Relationship Specialty Start Date End Date Sarah Orantes APRN-VALVE REPAIRER RECLAMATION [address] [place] [id number] PCP - General Family Medicine 7/28/22
--- OUTSIDE RECORDS SUMMARY | 2025-01-26 12:53 | XMS_ITS | Patient Health Record ---
Author Organization [facility] Address [address] [place] [address] Care Team Providers Care Bowling Ball Assembler Name Role Phone Dick Arroyo Primary Care Provider Julian Purvis Unavailable [phone] Houston Noel Unavailable [phone] Cara Harper Unavailable [phone] Reason For Referral Reason SEE NOTES........... ........PLEASE OBTAIN AUTHORIZATION FOR VISCO LEFT KNEE Diagnosis 1 Primary osteoarthrit is of left knee (M17.12) [facility] First Name Cara Referring Provider Last Name Meredith Referring Provider Speciality Physician Extension Clerk [facility] Address [address],[place], [place],[address], General Notes Yakelin Tariq 024 03:42:08 PM >NO INSURANCE IN CHART, Louann Holder 04/22/2024 10:28:43 AM > INChandni Amy 04/22/2024 01:55:53 PM >PLAN WILL ONLY ALLOW PREFERREDS THAT WE NO LONGER CARRY. STEROIND INJECTION ONLY, Ping De La Fuente 04/23/2024 04:03:10 PM >Per Cara, patient can contact PCP to see if they are able to do visco injections for her. Called patient, she has google assist and did not answer the call. Sent a text message. Referral Priority Routine Problems Problem Type SNOMED Code ICD Code Onset Dates Problem Status W/U Status Risk Notes Problem [id number] Pain, joint, kne e, left (M25.562) Active confirmed Problem Primary osteoarthritis of left knee (M17.12) Active confirmed Encounters Encounter Location Date Provider Diagnosis [facility] [address] [place] [place] [address] 04/07/2024 [place] Noel Primary osteoarthrit is of left knee M17.[facility] [address] [place] [address] 04/21/2024 Cara Harper Primary osteoarthritis of left knee M17.12 Assessments Encounter Date Diagnosis (ICD Code) Assessment Notes Treatment Notes Treatment Clinical Notes Section Notes 04/07/2024 Primary osteoarthritis of left knee (ICD-10 - M17.12) 04/21/2024 Primary osteoarthritis of left knee (ICD-10 - M17.12) 04/07/2024 Other For her left kn ee osteoarthritis she is currently not a good candidate for NSAIDs given she has had a recent right foot surgery for fusion. She is interested in a corticosteroid injection. 04/21/2024 Other I had a discuss ion today with patient about trying viscosupplementation given the corticosteroid injection this time did not help her. Patient would like to proceed and I we will send for approval for viscosupplementation. We will see her back in the office once the injection is approved. Plan Of Treatment Pending Test Test Name Order Date SCC- KNEE 4 VIEW [id number] 04/07/2024 Insurance Providers Payer Name Payer Address Payer Phone Subscriber Number Group Number Insured Name Patient Relationship to Insured Coverage Start Date Coverage End Date [employer] [address] [place] [phone] [id number] LAWRENCE LIZAMA Self - patient is the insured Medications Administered Medication Instructions Date of Administration Dosage Notes BUPIVACAINE 04/07/2024 2 mL Depo-Medrol 04/07/2024 1 mL lidocaine 04/07/2024 2 mL
--- OUTSIDE RECORDS SUMMARY | 2025-01-26 12:53 | XMS_ITS | Patient Health Record ---
Author Organization The [facility] in [place] Address [address] [place] [address] Care Team Providers Care Exhibit Cleaner Name Role Phone Sarah Montgomery Primary Care Provider Los Salmeron Unavailable [phone] Adriana Ivan Unavailable [phone] Frank Arroyo Unavailable [phone] Allergies Allergen (clinical drug ingredient) Drug/Non Drug Allergy documented on EMR Reaction Allergy Type Onset Date Status aspirin Aspirin stomach upset Drug Allergy Act vick Latex Latex rash Allergy Active Results Component Value Reference Range Notes XR Foot RT (3 views) * Reviewed date:03/04/2024 12:16:09 PM Interpretation: Performing Lab: Notes/Report: IRON Reviewed date:07/03/2024 10:27:51 AM Interpretation: Performing Lab: Notes/Report: [facility] , Iron 75.0 50.0-170.0 ug/dL Performing Lab: see note ML - [facility] LB XR foot RT min 3V Reviewed date:07/03/2024 10:27:51 AM Interpretation: Performing Lab: Notes/Report: Source Facility: [facility]-[address] [place] [address] [address] XRay Report Signed Patient: SIMIN CARO MR#: [id number] : 1970 Acct:[id number] Age/Sex: 54 / F ADM Date: 05/28/24 Loc: EC Attending Dr: Los WillsonPChang Ordering Physician: Los Salmeron D.P.M. Date of Service: 05/28/24 Procedure(s): XR foot RT min 3V Accession Number(s): [id number] cc: SARAH MONTGOMERY ; Los Salmeron D.P.M. [address] [address] Patient Name: SIMNI CARO MRN: [id number] date: 1970 Sex: F Assigned Patient Location: Current Patient Location: Accession/Order Number: [id number] Exam Date: 05/28/2024 08:50 Report Date: 05/30/2024 13:42 At the request of: LOS SALMERON Procedure: XR foot RT min 3V PROCEDURE: XR foot RT min 3V COMPARISON: 03/11/2024 HISTORY: RIGHT FOOT PAIN FINDINGS: BONES:Stable subtalar fusion with incomplete bony fusion utilizing 2 cannulated screws, lucency surrounding the screws suggest movement. Stable fusion of the navicular and intermediate cuneiform with a dorsal staple. Moderate degenerative changes of the midfoot and hindfoot SOFT TISSUES:Negative. No visible soft tissue swelling. EFFUSION:Large joint effusion OTHER: Negative. XR/XR foot RT min 3V IMPRESSION: Stable degenerative and postsurgical changes Electronically authenticated by: BARBARA HERNANDEZ Date: 05/30/2024 13:42 Dictated By: Barbara Hernandez M.D. Signed By: 05/30/24 1344 DD/ 1342 TD/TT: Manager Wireless: [place] [address] XRay Report Signed Patient: SIMIN CARO MR#: [id number] : 1970 Acct:[id number] Age/Sex: 54 / F ADM Date: 05/28/24 Loc: EC Attending Dr: Los Salmeron D.P.M. Ordering Physician: Los Salmeron D.P.M. Date of Service: 05/28/24 Procedure(s): XR quintin t RT min 3V Accession Number(s): [id number] cc: SARAH MONTGOMERY ; oLs Salmeron D.P.M. [place] [id number] Patient Name: SIMIN CARO MRN: [id number] date: 1970 Sex: F Assigned Patient Location: Current Patient Location: Accession/Order Number: [id number] Exam Date: 08:50 Report Date: 05/30/2024 13:42 At the request of: LOS SALMERON Procedure: XR foot R T min 3V PROCEDURE: XR foot R T min 3V COMPARISON: 03/11/2024 HISTORY: RIGHT FOOT PAIN FINDINGS: BONES:Stable subtala r fusion with incomplete bony fusion utilizing 2 cannulated screws, lucency surrounding the screws suggest movement. Stable fusion of the navicular and intermediate cuneiform with a dorsal staple. Moderate degenerative changes of the midfoot and hindfoot SOFT TISSUES:Negativ e. No visible soft tissue swelling. EFFUSION:Large joint effusion OTHER: Negative. XR/XR foot RT min 3V IMPRESSION: Stable degenerative and postsurgical changes Electronically authenticated by: BARBARA HERNANDEZ Date: 05/30/2024 13:42 Dictated By: Barbara Hernandez M.D. Signed By: 05/30/241343 DD/ 41 TD/TT: Manager Wireless: CBC AUTO DIFF Reviewed date:07/03/2024 10:27:51 AM Interpretation: Performing Lab: Notes/Report: [facility] , White Blood Count 4.9 4.0-11.0 10 3/uL Red Blood Count 5.43 4.20-5.40 10 6/uL Hemoglobin 15.6 12.0-16.0 g/dL Hematocrit 46.6 36.0-48.0 % Mean Corpuscular Volume 85.8 81.0-99.0 fL Mean Corpuscular Hemoglobin 28.7 26.7-34.0 pg Mean Corpuscular HGB Conc 33.5 29.9-35.2 g/dL Red Cell Distribution Width 13.2 11.0-15.0 % Platelet Count 294 150-450 10 3/uL Mean Platelet Volume 9.0 9.5-13.5 fL Neutrophils Percent Auto 60.5 43.0-75.0 % Lymphocytes Percent Auto 28.3 20.5-60.0 % Monocytes Percent Auto 9.6 1.7-12.0 % Eosinophils Percent Auto 0.6 0.9-7.0 % Basophils Percent Auto 0.8 0.2-2.0 % Immature Granulocytes Pct Auto 0.2 0.0-0.5 % Neutrophils Absolute Auto 3.0 1.4-6.5 10 3/uL Lymphocytes Absolute Auto 1.4 1.2-3.8 10 3/uL Monocytes Absolute Auto 0.5 0.3-0.8 10 3/uL Eosinophils Absolute Auto 0.0 0.0-0.7 10 3/uL Basophils Absolute Auto 0.0 0.0-0.1 10 3/uL Immature Granulocytes Abs Auto 0.01 0.00-0.03 10 3/uL Performing Lab: see note ML - [facility] MM tomosynthesis screening B I Reviewed date:01/06/2025 09:54:06 AM Interpretation: Performing Lab: Notes/Report: Source Facility: [place] [address] [place] [address] Mammography Report Signed Patient: SIMIN CARO MR#: [id number] : 1970 Acct:[id number] Age/Sex: 54 / F ADM Date: 01/05/25 Loc: MAMMO Attending Dr: SARAH MONTGOMERY Ordering Physician: SARAH MONTGOMERY Results: Date of Service: 01/05/25 Follow Up: Procedure(s): MM tomosynthesis screening BI Accession Number(s): [id number] cc: SARAH MONTGOMERY Patient Name: SIMIN CARO MR#: [id number] : 1970 Exam Date: 01/05/2025 Ordering Doctor: SARAH MONTGOMERY [facility] RADIOLOGY REPORT PROCEDURE: MM TOMOSYNTHESIS SCREENING BI COMPARISON: MM TOMOSYNTHESIS SCREENING BI, 12/27/2023. INDICATIONS: Screening Calculator Name NCI Breast Cancer Risk Assessment Tool 5 Year Breast Cancer Risk 1.10% Lifetime Breast Cancer Risk 8.20% Personal Breast Cancer No Personal Ovarian Cancer No Treatments None Family Cancers Father with bone cancer at age 69. LOCATION: [facility] BREAST COMPOSITION: There are scattered areas of fibroglandular density. FINDINGS: DIAGNOSTIC CATEGORY 1--NEGATIVE. RIGHT BREAST: No significant suspicious finding. LEFT BREAST: No significant suspicious finding. RECOMMENDATIONS: ROUTINE MAMMOGRAM AND CLINICAL EVALUATION IN 12 MONTHS. PLEASE NOTE: A NORMAL MAMMOGRAM DOES NOT EXCLUDE THE POSSIBILITY OF BREAST CANCER. A CLINICALLY SUSPICIOUS PALPABLE LUMP SHOULD BE BIOPSIED. Dictated by: Arcadio Ontiveros DO on 01/05/2025 at 15:55 Approved by: Arcadio Ontiveros DO on 01/05/2025 at 15:57 Dictated By: Arcadio Ontiveros D.O. Signed By: 01/05/25 1559 DD/ 1558 TD/TT: Manager Wireless: [place] [address] Mammography Report Signed Patient: SIMIN CARO MR#: [id number] : 1970 Acct:[id number] Age/Sex: 54 / F ADM Date: 01/05/25 Loc: MAMMO Attending Dr: SARAH MONTGOMERY Ordering Physician: SARAH MONTGOMERY Results: Date of Service: 01/05/25 Follow Up: Procedure(s): MM tomosynthesis screening BI Accession Number(s): [id number] cc: SARAH MONTGOMERY Patient Name: SIMIN CARO MR#: [id number] : 1970 Exam Date: 01/05/2025 Ordering Doctor: SARAH MONTGOMERY [facility] RADIOLOG[facility] REPORT PROCEDURE: MM TOMOSYNTHESIS SCREENING BI COMPARISON: MM TOMOSYNTHESIS SCREENING BI, 12/27/2023. INDICATIONS: Screening Calculator Name NCI Breast Cancer Risk Assessment Tool 5 Year Breast Cancer Risk 1.10% Lifetime Breast Canc er Risk 8.20% Personal Breast Canc er No Personal Ovarian Cancer No Treatments None Family Cancers Fathe r with bone cancer at age 69. LOCATION: [facility] BREAST COMPOSITION: There are scattered areas of fibroglandular density. FINDINGS: DIAGNOSTIC CATEGORY 1--NEGATIVE. RIGHT BREAST: No significant suspicious finding. LEFT BREAST: No significant suspicious finding. RECOMMENDATIONS: ROUTINE MAMMOGRAM AN D CLINICAL EVALUATION IN 12 MONTHS. PLEASE NOTE: A HUNG L MAMMOGRAM DOES NOT EXCLUDE THE POSSIBILITY OF BREAST CANCER. A CLINICALLY SUSPICIOUS PALPABLE LUMP SHOULD BE BIOPSIED. Dictated by: Arcadio Ontiveros DO on 01/05/2025 at 15:55 Approved by: Arcadio Ontiveros DO on 01/05/2025 at 15:57 Dictated By: Arcadio Ontiveros D.O. Signed By: 01/05/25 1559 DD/ 1558 TD/TT: Manager Wireless: XR foot RT min 3V (Not yet r eviewed by provider) Interpretation: Performing Lab: Notes/Report: Source Facility: [place] [address] XRay Report Signed Patient: SIMIN CARO MR#: [id number] : 1970 Acct:[id number] Age/Sex: 54 / F ADM Date: 08/20/24 Loc: RAD Attending Dr: Los Salmeron D.P.M. Ordering Physician: Los Salmeron D.P.M. Date of Service: 08/20/24 Procedure(s): XR foot RT min 3V Accession Number(s): [id number] cc: SARAH MONTGOMERY ; Los Salmeron D.P.M. [place] [address] Patient Name: SIMIN CARO MRN: [id number] date: 1970 Sex: F Assigned Patient Location: [facility] Current Patient Location: Accession/Order Number: [id number] Exam Date: 08/20/2024 12:55 Report Date: 08/21/2024 05:51 At the request of: LOS SALMERON Procedure: XR foot RT min 3V PROCEDURE: XR foot RT min 3V HISTORY: Right Foot Pain COMPARISON: XR foot right 05/28/2024 FINDINGS: BONES:Mechanical fusion of the talocalcaneal joint via 2 screws, and the navicular-medial cuneiform joints via dorsal bone staple. Mild degenerative changes the midfoot. No fracture or dislocation. SOFT TISSUES:No visible soft tissue swelling. EFFUSION:None visible. OTHER: Negative. XR/XR foot RT min 3V IMPRESSION: 1. Stable surgical changes without evidence of hardware failure or change in alignment. Electronically authenticated by: HOUSTON BOWLING Date: 08/21/2024 05:51 Dictated By: Houston Bowling M.D. Signed By: 08/21/24 0554 DD/ TD/TT: Manager Wireless: [place] [address] XRay Report Signed Patient: SIMIN CARO MR#: [id number] : 1970 Acct:[id number] Age/Sex: 54 / F ADM Date: 08/20/24 Loc: RAD Attending Dr: Los Salmeron D.P.M. Ordering Physician: Los Salmeron D.P.M. Date of Service: 08/20/24 Procedure(s): XR quintin t RT min 3V Accession Number(s): [id number] cc: SARAH MONTGOMERY ; Los Salmeron D.P.M. [place] [address] Patient Name: SIMIN CARO MRN: [id number] date: 1970 Sex: F Assigned Patient Location: [facility] Current Patient Location: Accession/Order Number: [id number] Exam Date: 08/20/2024 12:55 Report Date: 08/21/2024 05:51 At the request of: LOS SALMERON Procedure: XR foot R T min 3V PROCEDURE: XR foot R T min 3V HISTORY: Right Foot Pain COMPARISON: XR foot right 05/28/2024 FINDINGS: BONES:Mechanical fusion of the talocalcaneal joint via 2 screws, and the navicular-medial cuneiform joints via dorsal bone staple. Mild degenerative changes the midfoot. No fracture or dislocation. SOFT TISSUES:No visible soft tissue swelling. EFFUSION:None visible. OTHER: Negative. XR/XR foot RT min 3V IMPRESSION: 1. Stable surgical changes without evidence of hardware failure or change in alignment. Electronically authenticated by: HOUSTON BOWLING Date: 08/21/2024 05:51 Dictated By: Houston Bowling M.D. Signed By: 08/21/24 0554 DD/ TD/TT: Manager Wireless: Occult Blood* Reviewed date:07/04/2024 10:06:18 AM Interpretation: Performing Lab: Notes/Report: [facility] , Occult Blood Negative Performing Lab: see note ML - [facility] LB TSH Reviewed date:07/03/2024 10:27:51 AM Interpretation: Performing Lab: Notes/Report: [facility] , Thyroid Stimulating Hormone 1.409 0.358-3.740 uIU/mL Performing Lab: see note ML - [facility] LB T4 Reviewed date:07/03/2024 10:27:51 AM Interpretation: Performing Lab: Notes/Report: [facility] , T4 Thyroxine 10.60 4.80-13.90 ug/dL Performing Lab: see note - [facility] LB PROF 14(COMP METB) Reviewed date:07/03/2024 10:27:51 AM Interpretation: Performing Lab: Notes/Report: [facility] , Sodium 143 136-145 mmol/L Potassium 4.1 3.5-5.1 mmol/L Chloride 104 98-107 mmol/L Carbon Dioxide 29.7 21.0-32.0 mmol/L Anion Gap 13.4 Glucose 83 74-106 mg/dL Blood Urea Nitrogen 12.0 7.0-18.0 mg/dL Creatinine 1.04 0.55-1.02 mg/dL Estimated GFR ( Alma >60 >=60 mL/min/1.73m 2 Estimated GFR (Non- Rhianna 55 >=60 mL/min/1.73m 2 BUN Creatinine Ratio 11.5 Calcium 9.2 8.5-10.1 mg/dL Bilirubin Total 0.5 0.2-1.0 mg/dL Aspartate Amino Transferase 31 15-37 U/L Alanine Aminotransferase 23 14-59 U/L Alkaline Phosphatase 113 46-116 U/L Total Protein 7.5 6.4-8.2 g/dL Albumin Level 3.9 3.4-5.0 g/dL Globulin 3.6 Albumin Globulin Ratio 1.1 Performing Lab: see note ML - [facility] LB LIPID PROFILE Reviewed date:07/03/2024 10:27:51 AM Interpretation: Performing Lab: Notes/Report: [facility] , Triglycerides 84 <=150 mg/dL Cholesterol 192 <=200 mg/dL HDL Cholesterol 51 40-60 mg/dL > or =60 mg/dl - LOW CARDIOVASCULAR RISK <40 mg/dl - HIGH CARDIOVASCULAR RISK LDL Cholesterol Calculated 124.2 <100 mg/dl OPTIMAL 100-129 mg/dl NEAR OR ABOVE OPTIMAL 130-159 mg/dl BORDERLINE HIGH 160-189 mg/dl HIGH >190 mg/dl VERY HIGH VLDL CHOLESTEROL 16.8 Chol HDL Ratio 3.8 3.3 - 4.4 LOW RISK 4.4 - 7.1 AVERAGE RISK 7.1 - 11.0 MODERATE RISK >11.0 HIGH RISK Performing Lab: see note - [facility] INSULIN Reviewed date:07/03/2024 10:27:51 AM Interpretation: Performing Lab: Notes/Report: [facility] , Insulin 6.8 2.6-24.9 uIU/mL Performed at: [address] [id number] Screen Cutter And Trimmer: Harshal Oropeza PhD, Phone: [phone] Performing Lab: see note [facility] GLYCOHEMOGLOBIN A1C Reviewed date:07/03/2024 10:27:51 AM Interpretation: Performing Lab: Notes/Report: [facility] , Glycohemoglobin A1C 5.7 4.5-6.2 % ADA RECOMMENDED LIMIT 4.0 - 6.0 ADA THERAPEUTIC TARGET < 7.0 ACTION SUGGESTED > 7.0 Estimated Average Glucose 117 Performing Lab: see note - [facility] FREE T3 Reviewed date:07/03/2024 10:27:51 AM Interpretation: Performing Lab: Notes/Report: [facility] , Free T3 3.32 2.18-3.98 pg/mL Performing Lab: see note - [facility] XR knee LT 4V Reviewed date:04/11/2024 10:43:27 AM Interpretation: Performing Lab: Notes/Report: Source Facility: [facility]-[address] [place] [address] [place] [address] XRay Report Signed Patient: SIMIN CARO MR#: [id number] : 1970 Acct:[id number] Age/Sex: 54 / F ADM Date: 04/07/24 Loc: EC Attending Dr: Houston Shen M.D. Ordering Physician: Houston Shen M.D. Date of Service: 04/07/24 Procedure(s): XR knee LT 4V Accession Number(s): [id number] cc: SARAH MONTGOMERY ; Houston Shen M.D. [address] [id number] Patient Name: SIMIN CARO MRN: [id number] date: 1970 Sex: F Assigned Patient Location: Current Patient Location: Accession/Order Number: [id number] Exam Date: 04/07/2024 11:20 Report Date: 04/08/2024 18:59 At the request of: HOUSTON SHEN Procedure: XR knee LT 4V EXAM: XR knee LT 4V HISTORY: LEFT KNEE PAIN COMPARISON: None. FINDINGS/IMPRESSION: 1. No acute fracture or dislocation 2. Moderate degeneration of the medial compartment. 3. Moderate degeneration at the patellofemoral compartment. Mild degeneration of the lateral compartment. 4. Small knee joint effusion. Electronically authenticated by: TANYA MANCILLA Date: 04/08/2024 18:59 Dictated By: Tanya Mancilla M.D. Signed By: 04/08/241900 DD/ 58 TD/TT: Manager Wireless: [place] [address] XRay Report Signed Patient: SIMIN CARO MR#: [id number] : 1970 Acct:[id number] Age/Sex: 54 / F ADM Date: 04/07/24 Loc: EC Attending Dr: Houston Shen M.D. Ordering Physician: Houston Shen M.D. Date of Service: 04/07/24 Procedure(s): XR kne e LT 4V Accession Number(s): [id number] cc: SARAH MONTGOMERY ; Houston Shen M.D. [address] [id number] Patient Name: SIMIN CARO MRN: [id number] date: 1970 Sex: F Assigned Patient Location: EC Current Patient Location: Accession/Order Number: [id number] Exam Date: 04/07/2024 11:20 Report Date: 04/08/2024 18:59 At the request of: HOUSTON SHEN Procedure: XR knee L T 4V EXAM: XR knee LT 4V HISTORY: LEFT KNEE PAIN COMPARISON: None. FINDINGS/IMPRESSION: 1. No acute fracture or dislocation 2. Moderate degeneration of the medial compartment. 3. Moderate degeneration at the patellofemoral compartment. Mild degeneration of the lateral compartment. 4. Small knee joint effusion. Electronically authenticated by: TANYA MANCILLA Date: 04/08/2024 18:59 Dictated By: Tanya Mancilla M.D. Signed By: 04/08/241900 DD/ 58 TD/TT: Manager Wireless: CT ANKLE RT WO CON Reviewed date:07/03/2024 10:27:51 AM Interpretation: Performing Lab: Notes/Report: Source Facility: [place] [address] CT Scan Report Signed Patient: SIMIN CARO MR#: [id number] : 1970 Acct:[id number] Age/Sex: 54 / F ADM Date: 04/07/24 Loc: CT Attending Dr: Adriana Ivan Ordering Physician: Adriana Ivan Date of Service: 04/07/24 Procedure(s): CT ankle RT wo con Accession Number(s): [id number] cc: SARAH MONTGOMERY [place] [address] Patient Name: SIMIN CARO MRN: [id number] date: 1970 Sex: F Assigned Patient Location: CT Current Patient Location: Accession/Order Number: [id number] Exam Date: 04/07/2024 09:00 Report Date: 04/07/2024 15:49 At the request of: ADRIANA IVAN Procedure: CT ankle RT wo con EXAMINATION: CT ankle RT wo con 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 Dose reduction techniques were achieved by using automated exposure control and/or adjustment of mA and/or kV according to patient size and/or use of iterative reconstruction technique. FINDINGS: BONES: No acute fracture or dislocation. Stable subtalar fusion with 2 cannulated screws. Stable fusion of the medial cuneiform and navicular with a dorsal surgical staple. Severe degenerative changes with joint space narrowing subchondral erosions and bony remodeling. No significant interval bone formation is identified. There is remote partial fusion of the lateral talar navicular joint from now removed hardware. SOFT TISSUES: Diffuse soft tissue swelling EFFUSION: Moderate joint effusion OTHER: Negative. CT/CT ankle RT wo con IMPRESSION: Stable degenerative and postsurgical changes with no significant interval bone formation or bony bridging Electronically authenticated by: BARBARA HERNANDEZ Date: 04/07/2024 15:49 Dictated By: Barbara Hernandez M.D. Signed By: 04/07/24 1551 DD/ 1549 TD/TT: Manager Wireless: [place] [address] CT Scan Report Signed Patient: SIMIN CARO MR#: [id number] : 1970 Acct:[id number] Age/Sex: 54 / F ADM Date: 04/07/24 Loc: CT Attending Dr: Anayeli Ivan Ordering Physician: Adriana Ivan Date of Service: 04/07/24 Procedure(s): CT ank le RT wo con Accession Number(s): [id number] cc: SARAH MONTGOMERY [address] [address] Patient Name: SIMIN CARO MRN: [id number] date: 1970 Sex: F Assigned Patient Location: CT Current Patient Location: Accession/Order Number: [id number] Exam Date: 04/07/2024 09:00 Report Date: 04/07/2024 15:49 At the request of: ADRIANA IVAN Procedure: CT ankle RT wo con EXAMINATION: CT ankl e RT wo con 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 Dose reduction techniques were achieved by using automated exposure control and/or adjustment of mA and/or kV according to patient size and/or use of iterative reconstruction technique. FINDINGS: BONES: No acute fracture or dislocation. Stable subtalar fusion with 2 cannulated screws. Stable fusion of the medial cuneiform and navicular with a dorsal surgical staple. Severe degenerative changes with joint space narrowing subchondral erosions and bony remodeling. No significant interval bone formation is identified. There is remote partial fusion of the lateral talar navicular joint from now removed hardware. SOFT TISSUES: Diffus e soft tissue swelling EFFUSION: Moderate joint effusion OTHER: Negative. CT/CT ankle RT wo con IMPRESSION: Stable degenerative and postsurgical changes with no significant interval bone formation or bony bridging Electronically authenticated by: BARBARA HERNANDEZ Date: 04/07/2024 15:49 Dictated By: Barbara Hernandez M.D. Signed By: 04/07/24 1552 DD/ 1549 TD/TT: Manager Wireless: XR Foot RT (3 views) * Reviewed date:07/28/2024 02:14:30 PM Interpretation: Performing Lab: Notes/Report: XR Foot RT (3 views) * Reviewed date:03/04/2024 09:24:39 AM Interpretation: Performing Lab: Notes/Report: CT FOOT RT WO CON (Not yet r eviewed by provider) Interpretation: Performing Lab: Notes/Report: Source Facility: [place] [address] CT Scan Report Signed Patient: SIMIN CARO MR#: [id number] : 1970 Acct:[id number] Age/Sex: 54 / F ADM Date: 08/27/24 Loc: CT Attending Dr: Los Salmeron D.P.M. Ordering Physician: Los Salmeron D.P.M. Date of Service: 08/27/24 Procedure(s): CT foot RT wo con Accession Number(s): [id number] cc: SARAH MONTGOMERY [place] [address] Patient Name: SIMIN CARO MRN: [id number] date: 1970 Sex: F Assigned Patient Location: [facility] Current Patient Location: Accession/Order Number: [id number] Exam Date: 08/27/2024 10:45 Report Date: 08/28/2024 08:23 At the request of: LOS SALMERON Procedure: CT foot RT wo con EXAMINATION: CT foot RT wo con HISTORY: Nonunion STJ COMPARISON: XR foot right 08/20/2024, CT ankle right 04/07/2024 TECHNIQUE: Multi-planar CT images were created without and/or with IV contrast according to examination type. Dose reduction techniques were achieved by using automated exposure control and/or adjustment of mA and/or kV according to patient size and/or use of iterative reconstruction technique. FINDINGS: BONES: Mechanical fusion of the talocalcaneal joint via 2 fusion screws; no appreciable hardware fracture or loosening. Mechanical fusion of the talonavicular joint via a bone staple. Advanced degenerative changes the midfoot with numerous subchondral cysts. Evidence of prior hardware placement and removal. No fracture or dislocation. SOFT TISSUES: Mild soft tissue swelling surrounding the foot. EFFUSION: None visible. OTHER: Negative. CT/CT foot RT wo con IMPRESSION: 1. Stable surgical changes without is of hardware failure or change in alignment. 2. Grossly stable advanced degenerative changes. Electronically authenticated by: HOUSTON BOWLING Date: 08/28/2024 08:23 Dictated By: Houston Bowling M.D. Signed By: 08/28/24825 DD/ 2 TD/TT: Manager Wireless: [place] [address] CT Scan Report Signed Patient: SIMIN CARO MR#: [id number] : 1970 Acct:[id number] Age/Sex: 54 / F ADM Date: 08/27/24 Loc: CT Attending Dr: Los Salmeron D.P.M. Ordering Physician: Los Salmeron D.P.M. Date of Service: 08/27/24 Procedure(s): CT quintin t RT wo con Accession Number(s): [id number] cc: SARAH MONTGOMERY [place] [address] Patient Name: SIMIN CARO MRN: [id number] date: 1970 Sex: F Assigned Patient Location: [facility] Current Patient Location: Accession/Order Number: [id number] Exam Date: 08/27/2024 10:45 Report Date: 08/28/2024 08:23 At the request of: LOS SALMERON Procedure: CT foot R T wo con EXAMINATION: CT foot RT wo con HISTORY: Nonunion STJ COMPARISON: XR foot right 08/20/2024, CT ankle right 04/07/2024 TECHNIQUE: Multi-planar CT images were created without and/or with IV contrast according to examination type. Dose reduction techniques were achieved by using automated exposure control and/or adjustment of mA and/or kV according to patient size and/or use of iterative reconstruction technique. FINDINGS: BONES: Mechanical fusion of the talocalcaneal joint via 2 fusion screws; no appreciable hardware fracture or loosening. Mechanical fusion of the talonavicular joint via a bone staple. Advanced degenerative changes the midfoot with numerou s subchondral cysts. Evidence of prior hardware placement and removal. No fracture or dislocation. SOFT TISSUES: Mild soft tissue swelling surrounding the foot. EFFUSION: None visible. OTHER: Negative. CT/CT foot RT wo con IMPRESSION: 1. Stable surgical changes without is of hardware failure or change in alignment. 2. Grossly stable advanced degenerative changes. Electronically authenticated by: HOUSTON BOWLING Date: 08/28/2024 08:23 Dictated By: Houston Bowling M.D. Signed By: 08/28/24825 DD/ 2 TD/TT: Manager Wireless: Reason For Referral Reason gastric bypass consu lt Diagnosis 1 Class 3 obesity (E66 .01) Referral Organization [facility] Referring Provider First Name Sarah Referring Provider Last Name Rolanda Referring Provider [facility] di Referred Provider [place] Referred Provider Specialty General Surg hortencia Referral Priority Routine Reason intermittent facial numbness Diagnosis 1 Facial numbness (R20 .0) Referral Organization [facility] Referring Provider First Name Sarah Referring Provider Last Name Rolanda Referring Provider [facility] di Referred Provider Shefali Vasquez Referred Provider Specialty Neurology Referral Priority Routine Reason snoring, fatigue Diagnosis 1 Snoring (R06.83) Referral Organization [facility] Referring Provider First Name Sarah Referring Provider Last Name Rolanda [facility] [place] Referred Provider Shefali Vasquez Referred Provider Specialty Sleep Medici ne Referral Priority Routine Medications Medication SIG (Take, Route, Frequency, Duration) [...] a day for 7 days 08/12/2024 Active Lisinopril 20 MG TAKE 1 TABLET EVERY DAY for 90 Active Amitriptyline HCl 50 MG TAKE 2 TABLETS B Y MOUTH AT BEDTIME Orally Once a day for 30 days Active Venlafaxine HCl ER 75 MG TAKE 1 CAPSULE BY MOUTH EVERY DAY WITH FOOD for 90 Active Tylenol 325 MG 1 tablet as needed Orally every 6 hrs Active Social History Tobacco Use: Social History Observation Description Date Details (start date - stop date) Never Smoker NA - NA Tobacco Control (Standard) Question Answer Notes Tobacco use: Nonsmoker AUDIT-C (Standard) Question Answer Notes Did you have a drink containing alcohol in the p ast year? No Points 0 Interpretation Negative Section Notes: Former Smoker Former Smoker Former Smoker Former Smoker Former Smoker Former Smoker Former Smoker Former Smoker Former Smoker Former Smoker Former Smoker Former Smoker Former Smoker Former Smoker Former Smoker Former Smoker Former Smoker Former Smoker Former Smoker Former Smoker Former Smoker Former Smoker Former Smoker Former Smoker Problems Problem Type SNOMED Code ICD Code Onset Dates Problem Status W/U Status Risk Notes Problem 18530460 Anxiety disorder , unspecified (F41.9) Active confirmed Problem 742419786525915 Primary osteoarthritis, right ankle and foot (M19.071) Active confirmed Problem 627795132 Other acquired deformities of right foot (M21.6X1) Active confirmed Problem 476356635 Other specified acquired deformities of right lower leg (M21.861) Active confirmed Problem 141301792 Pseudarthrosis after fusion or arthrodesis (M96.0) Active confirmed Problem 83610866 Other postprocedural complications and disorders of genitourinary system (N99.89) Active confirmed Problem 86452940 Pain due to internal orthopedic prosthetic devices, implants and grafts, initial encounter (T84.84XA) Active confirmed Problem 777076257 Presence of functional implant, unspecified (Z96.9) Active confirmed Problem Hypertension (41318420) HTN (hypertension) (I10) Active confirmed Problem Osteoarthritis of knee (080176260) Osteoarthritis of knee (M17.9) Active confirmed Problem Insomnia (830433475) Insomnia (G47.00) Active confirmed Problem 203359306 Enlarged uterus (N85.2) Active confirmed Problem Pain in right foot (876401525664380) Right foot pain (M79.671) Active confirmed Problem Iron deficiency anemia (82691565) Anemia, iron deficiency (D50.9) Active confirmed Problem 265125949 Hallux valgus of right foot (M20.11) Active confirmed Problem 75471909 Iron deficiency anemia, unspecified iron deficiency anemia type (D50.9) Active confirmed Problem 822470604 H/O abdominal hysterectomy (Z90.710) Active confirmed Problem 767504606 Hot flashes, menopausal (N95.1) Active confirmed Problem 0391090522785463 Instability of right ankle joint (M25.371) Active confirmed Problem Essential hypertension (77732360) BP (high blood pressure) (I10) Active confirmed Problem 5279903896402821 Arthritis of right foot (M19.071) Active confirmed Problem 902533449 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) Active confirmed Problem 097677268 Encounter for examination following surgery (Z09) Active confirmed Problem 0512473795790255 Posterior tibia l tendon dysfunction (PTTD) of right lower extremity (M76.821) Active confirmed Problem Morbid obesity (315135245) Class 3 obesity (E66.01) Active confirmed Problem 509615668 Equinus contracture of right ankle (M24.571) Active confirmed Problem 206555148 Acquired valgus deformity of right foot (M21.071) Active confirmed Vital Signs Heart Rate 82 /min 09/02/2024 Temperature 98.2 degrees Fahrenheit 09/02/2024 Respiratory Rate 16 /min 08/20/2024 Blood pressure diastolic 80 mm Hg 01/08/2025 Oximetry 96 % 09/02/2024 Height 63 in 01/08/2025 Blood pressure systolic 122 mm Hg 01/08/2025 Weight 209.6 lbs 01/08/2025 BMI 37.12 kg/m2 01/08/2025 Encounters Encounter Location Date Provider Diagnosis [address] [address] 05/14/2024 Sarah Montgomery Rash and nonspecific skin eruption R21 ; Class 3 obesity E66.01 and Knee pain M25.[address] [address] 05/16/2024 Frank Hoy Osteoarthritis of knee M17.9 and Primary localized osteoarthritis of left knee M17.[address] [address] 06/30/2024 Saraheric Montgomery Gastroenteritis K52. 9 ; Anxiety disorder, unspecified F41.9 and HTN (hypertension) I10 [address] [address] 09/08/2024 Sarah Montgomery Pre-operative clearance Z01.818 and Weight loss R63.[address] [address] 12/03/2024 Sarah Montgomery Anxiety disorder, unspecified F41.9 and Facial numbness R20.[address] [address] 01/08/2025 Sarah Montgomery Snoring R06.83 [facility] [place] ([facility]) [address] [place] [address] 08/20/2024 [place] Pseudarthrosis after fusion or arthrodesis M96.0 ; Primary osteoarthritis, right ankle and foot M19.071 and Right foot pain M79.671 [facility] [place] [facility] [address] [facility] [place] [place] [address] 09/02/2024 [place] Primary osteoarthritis, right ankle and foot M19.071 ; Posterior tibial tendon dysfunction (PTTD) of right lower extremity M76.821 and Pseudarthrosis after fusion or arthrodesis M96.0 [facility] [place] ([facility]) [address] [place] [address] 05/28/2024 [place] Pseudarthrosis after fusion or arthrodesis M96.0 and Primary osteoarthritis, right ankle and foot M19.071 [facility] [place] ([facility]) [address] [place] [address] 01/30/2024 [place] Right foot pain M79.671 ; Pseudarthrosis after fusion or arthrodesis M96.0 and Primary osteoarthritis, right ankle and foot M19.071 [facility] [place] ([facility]) [address] [place] [address] 02/19/2024 [place] Acquired valgus deformity of right foot M21.071 ; Posterior tibial tendon dysfunction (PTTD) of right lower extremity M76.821 and Pseudarthrosis after fusion or arthrodesis M96.0 [facility] [place] ([facility]) [address] [place] [address] 03/11/2024 Adriana Ivan Primary osteoarthritis, right ankle and foot M19.071 ; Posterior tibial tendon dysfunction (PTTD) of right lower extremity M76.821 ; Pseudarthrosis after fusion or arthrodesis M96.0 and Right foot pain M79.671 [facility] [place] ([facility]) [address] [place] [address] 04/14/2024 [place] [facility] [place] ([facility]) [address] [place] [address] 04/18/2024 Adriana Ivan [facility] [place] ([facility]) [address] [place] [address] 04/21/2024 Adriana Ivan [facility] [place] ([facility]) [address] [place] [address] 05/01/2024 [place] [facility] [place] ([facility]) [address] [place] [address] 06/02/2024 [place] [facility] [place] ([facility]) [address] [place] [address] 06/18/2024 [place] [facility] [address] [facility] [place] [address] 06/30/2024 Sarah Montgomery Wellness examination Z00.00 [facility] [address] [facility] [place] [address] 07/03/2024 Sarah Montgomery [facility] [address] [facility] [place] [address] 07/04/2024 Sarah Montgomery [facility] [address] [facility] [place] [address] 07/09/2024 Sarah Montgomery [facility] [place] ([facility]) [address] [place] [address] [place] [address] 07/14/2024 [facility] [address] [facility] [place] [address] 08/11/2024 Sarah Montgomery Anxiety disorder, unspecified F41.9 [facility] [place] ([facility]) [address] [place] [address] [place] [address] 08/20/2024 [facility] [address] [facility] [place] [address] 09/08/2024 Sarah Montgomery [facility] [address] [facility] [place] [address] 09/08/2024 Sarah Montgomery Anxiety disorder, unspecified F41.9 [facility] [address] [facility] [place] [address] 09/09/2024 Sarah Montgomery Class 3 obesity E66.01 [facility] [address] [facility] [place] [address] 12/03/2024 Sarah Montgomery [facility] [address] [facility] [place] [address] 01/06/2025 Sarah Montgomery [facility] [address] [facility] [place] [address] 01/12/2025 Sarah Montgomery [facility] [address] [facility] [place] [address] 01/21/2025 Sarah Montgomery Assessments Encounter Date Diagnosis (ICD Code) Assessment Notes Treatment Notes Treatment Clinical Notes Section Notes 01/30/2024 Right foot pain (ICD-10 - M79.671) 01/30/2024 Pseudarthrosis after fusion or arthrodesis (ICD-10 - M96.0) Patient reportedly is feeling well however I was unable to assess her hemw-dj-fdim due to surgical emergency but did discuss her subjective symptoms with staff and reportedly her skin is healed and sutures were discontinued. Her swelling is controlled but recommended continue ice and elevation. She should remain nonweightbearing but she may be transition to a cam boot. She may remove the cam boot and perform active ankle range of motion exercises and light massage as well as ice application. She will follow-up with me in 3 to 4 weeks with weightbearing foot x-rays. 02/19/2024 Acquired valgus deformity of right foot (ICD-10 - M21.071) Simin is almost 6 weeks s/p revision subtalar joint fusion, DOS: 01/11/24. No evidence of infection or DVT on examination. Incisions are nicely healed.Xrays were reviewed and are satisfactory and swelling is minimal. She may begin toe touch weightbearing for transfers and short distances around the house, but otherwise should remain NWB.Continue pjuy-srb-hqxycct analgesia and elevation. I ordered a CT scan to be performed on or after 04/03/24 to assess the bony fusion.Follow-up in 3 weeks, sooner if any issues arise. I would like simulated weightbearing foot x-rays at follow-up. 02/19/2024 Posterior tibial tendon dysfunction (PTTD) of right lower extremity (ICD-10 - M76.821) 03/11/2024 Primary osteoarthritis, right ankle and foot (ICD-10 - M19.071) Simin is 8+ weeks s/p revision subtalar joint fusion, DOS: 01/11/24. No evidence of infection or DVT on examination. Incisions are nicely healed.Xrays were reviewed and are satisfactory and swelling is minimal. She may continue advancing to WBAT in the CAM boot. Continue AROM of the ankle.Continue ujnd-cpl-pdsqgnd analgesia and elevation. Followup with Dr. Salmeron after her CT scan which will be performed on or after 04/03/24. 03/11/2024 Posterior tibial tendon dysfunction (PTTD) of right lower extremity (ICD-10 - M76.821) 05/28/2024 Pseudarthrosis after fusion or arthrodesis (ICD-10 - M96.0) Patient underwent revision of subtalar joint fusion in December 2023. 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 Her x-rays obtained today show stable screw fixation but is difficult to determine amount of bony healing. She has started using her bone stimulator roughly a week ago. Due to the difficulty in assessment of the subtalar joint I recommended to repeat CT scan in approximately 6 weeks. She will follow-up after that is obtained. Until then I recommended that she remain off of work given her job description of requiring prolonged standing and walking. Estimated return back to work is August 04, 2024. This date may be adjusted depending on her symptoms and findings on imaging at the appointment in June. 05/28/2024 Primary osteoarthritis, right ankle and foot (ICD-10 - M19.071) 05/14/2024 Rash and nonspecific skin eruption (ICD-10 - R21) fu derm if not improving, referral sheet given 05/14/2024 Class 3 obesity (ICD-10 - E66.01) unable to lose wt discussed diet discussed wt loss meds mother had gastric bypass would like referral for consult 05/16/2024 Osteoarthritis of knee (ICD-10 - M17.9) standard knee injecitons 05/16/2024 Primary localized osteoarthritis of left knee (ICD-10 - M17.12) 06/30/2024 Gastroenteritis (ICD-10 - K52.9) push fluids has nausea meds at home 08/20/2024 Pseudarthrosis after fusion or arthrodesis (ICD-10 - M96.0) Patient continues to have pain and difficulty ambulating but the ASO ankle brace does help. She is to continue using the bone stimulator as prescribed. Given the x-rays do not clearly show osseous fusion in part due to the limitation of plain films I recommended a CT scan which was ordered to assess for bony healing of the subtalar joint. She will follow-up after the CT scan is performed 08/20/2024 Primary osteoarthritis, right ankle and foot (ICD-10 - M19.071) 09/02/2024 Primary osteoarthritis, right ankle and foot (ICD-10 - M19.071) Patient presents for follow-up and is seemingly doing pretty well given all her for her orthopedic issues. I reviewed her CT scan with her. Recommend that she continue wearing the ASO ankle brace. I believe that her right foot symptoms will continue to improve with time especially after her left knee is replaced. She will follow-up with me in 3 months sooner if needed. 09/02/2024 Posterior tibial tendon dysfunction (PTTD) of right lower extremity (ICD-10 - M76.821) 09/08/2024 Pre-operative clearance (ICD-10 - Z01.818) labs reviewed, ok obtain EKG and review 09/08/2024 Weight loss (ICD-10 - R63.4) start after sx if approved work on diet 12/03/2024 Anxiety disorder, unspecified (ICD-10 - F41.9) discussed past med treatment discussed current anxiety state did recently start counseling patient agreeable to seeing psych for dx, med changes referral sheet given 12/03/2024 Facial numbness (ICD-10 - R20.0) lower lip, intermittent seems related to anxiety requesting neurology consult 01/08/2025 Snoring (ICD-10 - R06.83) 06/30/2024 Wellness examination (ICD-10 - Z00.00) 08/11/2024 Anxiety disorder, unspecified (ICD-10 - F41.9) 09/08/2024 Anxiety disorder, unspecified (ICD-10 - F41.9) 09/09/2024 Class 3 obesity (ICD-10 - E66.01) 09/02/2024 Pseudarthrosis after fusion or arthrodesis (ICD-10 - M96.0) 08/20/2024 Right foot pain (ICD-10 - M79.671) 06/30/2024 Anxiety disorder, unspecified (ICD-10 - F41.9) is taking meds routinely has prn xanax helps some did make apt with [facility] fu as needed 05/14/2024 Knee pain (ICD-10 - M25.569) fu Hoy for possible injections 03/11/2024 Pseudarthrosis after fusion or arthrodesis (ICD-10 - M96.0) 02/19/2024 Pseudarthrosis after fusion or arthrodesis (ICD-10 - M96.0) 01/30/2024 Primary osteoarthritis, right ankle and foot (ICD-10 - M19.071) 03/11/2024 Right foot pain (ICD-10 - M79.671) 06/30/2024 HTN (hypertension) (ICD-10 - I10) continue monitor report next week takes lisinopril 05/14/[address] Pina referral Plan Of Treatment Pending Test Test Name Order Date CMP (COMPLETE METABOLIC PANEL) 4 CMP (COMPLETE METABOLIC PANEL) 4 HEMOGLOBIN A1C (GLYCO) 06/30/2024 HEMOGLOBIN A1C (GLYCO) 12/04/2023 INSULIN, TOTAL 06/30/2024 IRON, TOTAL 12/04/2023 LIPID PANEL (CHOL/TRIG/HDL/LDL) 06/30/20 24 LIPID PANEL (CHOL/TRIG/HDL/LDL) 12/04/19 24 CBC WITH DIFF 12/04/2023 CBC WITH DIFF 06/30/2024 VITAMIN D, 25 LEVEL (TOTAL) 12/04/2023 XR Foot RT (3 views) * 03/11/2024 XR Foot RT (3 views) * 08/20/2024 CT Ankle RT w/o contrast * (Optional 3D Rendering) 05/28/2024 CT Ankle RT w/o contrast * (Optional 3D Rendering) 02/19/2024 CT Foot RT w/o contrast * (Optional 3D R endering) 08/20/2024 Insulin Level 12/04/2023 STOOL OCCULT BLOOD 06/30/2024 THYROID PANEL (T4/TSH/FREE T3) 4 THYROID PANEL (T4/TSH/FREE T3) CT FOOT RT WO CON 08/28/2024 XR foot RT min 3V 08/21/2024 Insurance Providers Payer Name Payer Address Payer Phone Subscriber Number Group Number Insured Name Patient Relationship to Insured Coverage Start Date Coverage End Date BCBS OUT OF STATE [address] [place] [address] [phone] [id number] Simin Caro Self - patient is the insured Medications Administered Medication Instructions Date of Administration Dosage Notes DEPO-Medrol 05/22/2023 1 mL Lidocaine HCl 05/22/2023 1 mL Medical (General) History Medical History History ICD Code Primary osteoarthritis, right ankle and foot M19.071 Other specified acquired deformities of right lower leg M21.861 Posterior tibial tendon dysfunction (PTT D) of right lower extremity M76.821 Other postprocedural complications and d isorders of genitourinary system N99.89 Acquired varus deformity of right foot M 21.171 Acquired valgus deformity of right foot M21.071 Equinus contracture of right ankle M24.5 71 Instability of right ankle joint M25.371 Iron deficiency anemia, unspecified iron deficiency anemia type D50.9 Enlarged uterus N85.2 Encounter for examination following surg hortencia Z09 H/O abdominal hysterectomy Z90.710 Menopausal and female climacteric states N95.1 Hot flashes, menopausal N95.1 Pain in right ankle and joints of right foot M25.571 Pain in left ankle and joints of left fo ot M25.572 Pain in right foot M79.671 Other specified acquired deformities of musculoskeletal system M95.8 Ankle impingement syndrome, right M25.87 1 Other acquired deformities of right foot M21.6X1 Osteophyte, right foot M25.774 Hallux valgus of right foot M20.11 HTN (hypertension) I10 Anemia D64.9 Surgical History Surgery Date(Month/Year) Revision subtalar joint fusion 4 RT Talonvicular and Tranvers e Tarsal Joint Fusion, RT Subtalar Joint Fusion, RT Ankle Arthroscopy RT Gastric recession, Fitzwilliam of distal Tibial Bone Graft 08/14/2022 Laparoscopic Tubal Ligation 1992 Dilation and Curettage of Uterus 2015 Abdominal Hysterectomy with Bilateral Sa lpingectomy 07/25/2017 Left knee replacement 09/16/24 Hospitalization History Reason Date(Month/Year) see above
== END 2025-01-21 10:31 | disposition home or self-care (01) ==
LOC: SLEEP 01-26 12:50
PROVIDERS: PCP Nurse Practitioner Family; Visit Provider Nurse Practitioner Family
DX: G47.33 Obstructive sleep apnea (adult) (pediatric) (principal)
CPT/HCPCS: 95806

== ENCOUNTER 2025-03-03 11:49 | Emergency (ER) | payer BC, SELFPAY ==
--- OUTSIDE RECORDS SUMMARY | 2024-03-17 05:10 | XMS_ITS ---
Author Organization [facility] Address [address] [place] [address] Care Team Providers Care Sales Development Manager Name Role Phone Dick Arroyo Primary Care Provider Julian Purvis Unavailable [phone] [place] Noel Unavailable [phone] REASON FOR VISIT LEFT KNEE PAIN Encounters Encounter Location Date Provider Diagnosis [facility] Office [address] [place] [address] [place] [address] 03/17/2024 [place] Noel Pain, joint, knee, left M25.562 Assessments Encounter Date Diagnosis (ICD Code) Assessment Notes Treatment Notes Treatment Clinical Notes Section Notes 03/17/2024 Pain, joint, knee, left (ICD-10 - M25.562) Plan Of Treatment Pending Test Test Name Order Date SCC- KNEE 4 VIEW LEFT-[id number] 03/17/2024 Progress Notes * LAWRENCE LIZAMA MDOB:1970 ( 55 yo F)Acc No.[id number]:03/17/2024 Patient: Juan C DOROTHY LAWRENCE Meredith Provider: Calin Noel MD :1970 A ge:54 Y S ex:Female Date:03/17/2024 Address:[address] [place] [phone] Pcp:Dick Arrooy Subjective: * Chief Complaints: * 1 . LEFT KNEE PAIN. * Medical History: Objective: * Vitals: Assessment: * Assessment: 1. P ain, joint, knee, left - M25.562 Plan: * Treatment: Forms: * Images: * Electronic signature of Jose Armando Noel MD on 03/03/2025 at 11:56 AM EDT Sign off status: Pending * Provider: Calin Noel MD Date: 0 03/17/2024 Generated for Ivana garcia/Ana/Noel on: 0 03/03/2025 11:56 AM EDT
--- OUTSIDE RECORDS SUMMARY | 2025-01-08 09:00 | XMS_ITS ---
Author Organization The [facility] in [place] Address [address] [place] [address] Care Team Providers Care Sheet Metal Roofer Name Role Phone Sarah Orantes Primary Care Provider Allergies Allergen (clinical drug ingredient) Drug/Non Drug Allergy documented on EMR Reaction Allergy Type Onset Date Status aspirin Aspirin stomach upset Drug Allergy Act vick Latex Latex rash Allergy Active Reason For Referral Reason snoring, fatigue Diagnosis 1 Snoring (R06.83) Referral Organization [facility] Medicine Referring Provider First Name Sarah Referring [...] 01/08/2025 Encounters Encounter Location Date Provider Diagnosis [facility] [address] [place] [address] 01/08/2025 Sarah Orantes Snoring R06.83 Assessments Encounter Date Diagnosis (ICD Code) Assessment Notes Treatment Notes Treatment Clinical Notes Section Notes 01/08/2025 Snoring (ICD-10 - R06.83) Plan Of Treatment Referrals Referral Date Details 01/08/2025 01/08/2025, snoring, fatigue, Shefali Pedro Next Appt Details Follow Up: prn, Reason: Progress Notes * Simin CARO MDOB:1970 ( 54 yo F)Acc No.[id number]:01/08/2025 Progress Note Patient: Simin AKERS Provider: Hannah Orantes ([facility]), CLINIC LEAD :1970 A ge:54 Y S ex:Female Date:01/08/2025 Address:[address] [place], [place] [phone] Check In:12:58 PM ESTCheck O ut:01:21 PM [...] Fusion, RT Ankle Arthroscopy RT Gastric recession, [place] of distal Tibial Bone Graft 08/14/2022, Revision [...] and dry. Assessment: * Assessment: [facility]. [facility] R06.83 (Primary) Plan: * Treatment: * Preventive Medicine: Screenings/Counseling: B GA ACTION PLAN Above Normal BMI Follow-up D ietary management education, guidance, and counseling See treatment section of progress note for complete details of management plan. * Follow Up: p rn * * Electronically signed by Melinda Orantes , NGA, WINDOW UNIT AIR CONDITIONING MECHANIC.CLINIC LEAD.[id number] on 01/09/2025 at 12:34 PM EDT Sign off status: Completed Visit Status: C HK (Check Out) true * Provider: Hannah Orantes ([facility]), CLINIC LEAD Date: 0 01/08/2025 Generated for Ivana garcia/Ana/eTransmitting on: 0 03/03/2025 11:57 AM EDT History and Physical Notes * HPI [...]
--- OUTSIDE RECORDS SUMMARY | 2025-01-12 10:58 | XMS_ITS ---
Author Organization The [facility] in [place] Address [address] [place] [address] Care Team Providers Care Engine Buildup Mechanic Name Role Phone Sarah Orantes Primary Care Provider REASON FOR VISIT PA approval for Home Study Encounters Encounter Location Date Provider Diagnosis [facility] [address] [place] [address] 01/12/2025 Sarah Orantes Plan Of Treatment No Information Progress Notes * Simin CARO MDOB:1970 ( 54 yo F)Acc No.[id number]:01/12/2025 Patient: Simin AEKRS :1970 A ge:54 Y S ex:Female Address:[address] [place] [address] * true * Date: Generated for Ivana garcia/Ana/eTransmitting on: 0 03/03/2025 11:57 AM EDT
--- OUTSIDE RECORDS SUMMARY | 2025-01-21 09:58 | XMS_ITS ---
Author Organization The [facility] in [place] Address [address] [place] [address] Care Team Providers Care Silk Folder Name Role Phone Sarah Orantes Primary Care Provider REASON FOR VISIT handicap placard Encounters Encounter Location Date Provider Diagnosis [facility] [address] [place] [address] 01/21/2025 Sarah Orantes Plan Of Treatment No Information Progress Notes * Simin CARO MDOB:1970 ( 54 yo F)Acc No.[id number]:01/21/2025 Patient: Juan C Simin DE LA CRUZ :1970 A ge:54 Y S ex:Female Address:[address] [place] [phone] Subjective: * Chief Complaints: * H andicap placard * Medical History: * Surgical History: * Hospitalization/Major Diagno stic Procedure: * Medications: Objective: * Vitals: * Physical Examination: Assessment: Plan: * Treatment: * Procedure Codes: * true * Date: Generated for Ivana garcia/Ana/eTreglasmitting on: 0 03/03/2025 11:56 AM EDT
[2025-03-03 11:56] VITALS: BP 143/96; PULSE 67; TEMP 36.6; O2SAT 98; BMI 37.2
--- OUTSIDE RECORDS SUMMARY | 2025-03-03 11:57 | XMS_ITS | Encounter Summary ---
Author Organization [facility] Address [address] [place] [address] Care Team Providers Care Mailroom Personnel Name Role Phone Dick Arroyo MD Primary Care Provider + Sarah Orantes MD Unavailable [phone] Dick Arroyo MD Primary Care Provider + Encounter Details Date Type Department Care Team (Late st Contact Info) Description 12/29/2022 Abstract [facility] [address] [facility] [place] [address] Mary Fisher MA Social History Tobacco Use [...] on filedocumented in this encounter Care Teams Mailroom Personnel Relationship Specialty Start Date End Date Dick Arroyo MD PCP - General Family Medicine 01/16/23 12/04/24 Dick Arroyo MD [address] [place] [address] PCP - General Family Medicine 12/05/24 Sarah Orantes MD [address] [place] [address] Referring Physician Family Medicine 12/05/24 documented as of this encounter
--- OUTSIDE RECORDS SUMMARY | 2025-03-03 11:57 | XMS_ITS | Encounter Summary ---
Author Organization [facility] Address [address] [place] [address] Care Team Providers Care Fitter / Welder Name Role Phone Dick Arroyo MD Primary Care Provider [phone] Sarah Orantes MD Unavailable [phone] Dick Arroyo MD Primary Care Provider [phone] Encounter Details Date Type Department Care Team (Late st Contact Info) Description 11/15/2022 [facility] [address] [place] [address] Germania Razo, [facility] [address] [place] [address] Social History Tobacco Use Types Packs/Day Years [...] on filedocumented in this encounter Care Teams Fitter / Welder Relationship Specialty Start Date End Date Dick Arroyo MD PCP - General Family Medicine 01/16/23 12/04/24 Dick Arroyo MD [address] [place] [address] PCP - General Family Medicine 12/05/24 Sarah Orantes MD [address] [place] [address] Referring Physician Family Medicine 12/05/24 documented as of this encounter
--- OUTSIDE RECORDS SUMMARY | 2025-03-03 11:57 | XMS_ITS | Clinical Summary ---
Author Organization [facility] Address [id number] [address] [place] [address] Care Team Providers Care Chief Technical Officer Name Role Phone Rolanda Sarah Layton WE[employer] DES[employer] INTERN[employer] Primary Care Provider Allergies Active Allergy Reactions [...] Negative Negative^N egative 05/13/2022 6:25 AM EDT [facility] Hpv 18 Negative Negative^N egative 05/13/2022 6:25 AM EDT [facility] Other high risk hpv Negative Negative^N egative 05/13/2022 6:25 AM EDT [facility] Comment: HPV types 31,33,35,39,45,52,56,58,59,66 and 68 DNA were undetectable. THINP 05/10/2022 8:12 AM EDT 05/11/2022 8:12 AM EDT us Marcia Guzman [employer] [facility] BLOOD ORDERABLES Fin al Result [facility] [address] [facility] [place] [address] from Last 3 Months or Most Recently Relevant to Health Maintenance Insurance ANTH Care Teams Chief Technical Officer Relationship Specialty Start Date End Date Sarah Orantes APRN[employer] [address] [place] [id number] PCP - General Family Medicine 7/28/22
--- OUTSIDE RECORDS SUMMARY | 2025-03-03 11:57 | XMS_ITS | Encounter Summary ---
Author Organization [facility] Address [address] [place] [address] Care Team Providers Care Sales Product Manager Name Role Phone Dick Arroyo MD Primary Care Provider + Sarah Orantes MD Unavailable [phone] Dick Arroyo MD Primary Care Provider + Encounter Details Date Type Department Care Team (Late st Contact Info) Description 01/01/2023 [facility] [address] [facility] [place] [address] Mary Fisher MA Social History Tobacco Use [...] on filedocumented in this encounter Care Teams Sales Product Manager Relationship Specialty Start Date End Date Dick Arroyo MD PCP - General Family Medicine 01/16/23 12/04/24 Dick Arroyo MD [address] [place] [address] PCP - General Family Medicine 12/05/24 Sarah Orantes MD [address] [place] [address] Referring Physician Family Medicine 12/05/24 documented as of this encounter
--- OUTSIDE RECORDS SUMMARY | 2025-03-03 11:57 | XMS_ITS | Clinical Summary ---
Author Organization [facility] Address [address] [place] [address] Care Team Providers Care Baggage Screener Name Role Phone Sarah Orantes MD Unavailable [phone] Dick Arroyo MD Primary Care Provider [phone] Social History Tobacco Use Types Packs/Day Years [...] 02/06/2000 HPV/Cotest 02/06/2000 Mammogram 2010 Influenza Vaccine (#1) 2025 2, 05/16/2021, 05/16/2019, Additional history exists Insurance [facility] Care Teams Baggage Screener Relationship Specialty Start Date End Date Dick Arroyo MD [address] [place] [id number] PCP - General Family Medicine 12/05/24 Sarah Orantes MD [address] [place] [address] [phone] Referring Physician Family Medicine 12/05/24
--- OUTSIDE RECORDS SUMMARY | 2025-03-03 11:58 | XMS_ITS | Patient Health Record ---
Author Organization [facility] in [place] Address [address] [place] [address] Care Team Providers Care Cnc Mechanic Name Role Phone Sarah Montgomery Primary Care Provider Los Salmeron Unavailable [phone] Adriana Ivan Unavailable [phone] Frank Arroyo Unavailable [phone] Allergies Allergen (clinical drug ingredient) Drug/Non Drug Allergy documented on EMR Reaction Allergy Type Onset Date Status aspirin Aspirin stomach upset Drug Allergy Act vick Latex Latex rash Allergy Active Results Component Value Reference Range Notes XR Foot RT (3 views) * Reviewed date:07/28/2024 02:14:30 PM Interpretation: Performing Lab: Notes/Report: XR knee LT 4V Reviewed date:04/11/2024 10:43:27 AM Interpretation: Performing Lab: Notes/Report: Source Facility: [place] [address] [facility] [place] [id number] XRay Report Signed Patient: SIMIN CARO MR#: [id number] : 1970 Acct:[id number] Age/Sex: 54 / F ADM Date: 04/07/24 Loc: EC Attending Dr: Houston Shen M.D. Ordering Physician: Houston Shen M.D. Date of Service: 04/07/24 Procedure(s): XR knee LT 4V Accession Number(s): [id number] cc: SARAH MONTGOMERY ; Houston Shen M.D. [address] [address] Patient Name: SIMIN CARO MRN: [id number] date: 1970 Sex: F Assigned Patient Location: Current Patient Location: Accession/Order Number: [id number] Exam Date: 04/07/2024 11:20 Report Date: 04/08/2024 [...] Small knee joint effusion. Electronically authenticated by: EL MANCILLA Date: 04/08/2024 18:59 Dictated By: El Mancilla M.D. Signed By: 04/08/241900 DD/ 58 TD/TT: Supervisor Chassis Assembly: [place] [address] XRay Report Signed Patient: SIMIN CARO MR#: [id number] : 1970 Acct:[id number] Age/Sex: 54 / F ADM Date: 04/07/24 Loc: Attending Dr: Houston Shen M.D. Ordering Physician: Houston Shen M.D. Date of Service: 04/07/24 Procedure(s): XR kne e LT 4V Accession Number(s): [id number] cc: SARAH MONTGOMERY ; Houston Shen M.D. [address] [address] Patient Name: SIMIN CARO MRN: [id number] date: 1970 Sex: F Assigned Patient Location: Current Patient Location: Accession/Order Number: [id number] Exam Date: 04/07/2024 11:20 Report Date: 04/08/2024 [...] Small knee joint effusion. Electronically authenticated by: EL MANCILLA Date: 04/08/2024 18:59 Dictated By: El Mancilla M.D. Signed By: 04/08/241900 DD/ 58 TD/TT: Supervisor Chassis Assembly: INSULIN Reviewed date:07/03/2024 10:27:51 AM Interpretation: Performing Lab: Notes/Report: [facility] , Insulin 6.8 2.6-24.9 uIU/mL Board Attendant: Harshal Oropeza PhD, Phone: [phone] Performed at: [facility] [id number] Performing Lab: see note - [facility] LB CT FOOT RT WO CON (Not yet r eviewed by provider) Interpretation: Performing Lab: Notes/Report: Source Facility: [place] [address] CT Scan Report Signed Patient: SIMIN CARO MR#: [id number] : 1970 Acct:[id number] Age/Sex: 54 / F ADM Date: 08/27/24 Loc: CT Attending Dr: Los Salmeron D.P.M. Ordering Physician: [place] Sal[place]on D.P.M. Date of Service: 08/27/24 Procedure(s): CT foot RT wo con Accession Number(s): [id number] cc: SARAH MONTGOMERY [place] [id number] Patient Name: SIMIN CARO MRN: [id number] date: 1970 Sex: F Assigned Patient Location: [facility] Current Patient Location: Accession/Order Number: [id number] Exam Date: 08/27/2024 10:45 Report Date: 08/28/2024 [...] M.D. Signed By: 08/28/24825 DD/ 2 TD/TT: Supervisor Chassis Assembly: [place] [address] CT Scan Report Signed Patient: SIMIN CARO MR#: [id number] : 1970 Acct:[id number] Age/Sex: 54 / F ADM Date: 08/27/24 Loc: CT Attending Dr: Los Salmeron D.P.M. Ordering Physician: [place] Sal[place] D.P.M. Date of Service: 08/27/24 Procedure(s): CT quintin t RT wo con Accession Number(s): [id number] cc: SARAH MONTGOMERY [address] [address] Patient Name: SIMIN CARO MRN: [id number] date: 1970 Sex: F Assigned Patient Location: [facility] Current Patient Location: Accession/Order Number: [id number] Exam Date: 08/27/2024 10:45 Report Date: 08/28/2024 [...] M.D. Signed By: 08/28/24825 DD/ 2 TD/TT: Supervisor Chassis Assembly: HUNTER tomosynthesis screening B I Reviewed date:01/06/2025 09:54:06 AM Interpretation: Performing Lab: Notes/Report: Source Facility: [place] [address] Mammography Report Signed Patient: SIMIN CARO MR#: [id number] : 1970 Acct:[id number] Age/Sex: 54 / F ADM Date: 01/05/25 Loc: MAMMO Attending Dr: SARAH MONTGOMERY Ordering Physician: SARAH MONTGOMERY Results: Date of Service: 01/05/25 Follow Up: Procedure(s): MM tomosynthesis screening BI Accession Number(s): [id number] cc: SARAH MONTGOMERY Patient Name: SIMIN CARO MR#: [id number] : 1970 Exam Date: 01/05/2025 Ordering Doctor: SARAH MONTGOMERY [facility] REPORT PROCEDURE: MM TOMOSYNTHESIS SCREENING BI COMPARISON: MM TOMOSYNTHESIS SCREENING BI, 12/27/2023. INDICATIONS: Screening Calculator Name NCI Breast Cancer Risk Assessment Tool 5 Year Breast Cancer Risk 1.10% Lifetime Breast Cancer Risk 8.20% Personal Breast Cancer No Personal Ovarian Cancer No Treatments None Family Cancers Father with bone cancer at age 69. LOCATION: [facility] BREAST COMPOSITION: There are scattered areas of [...] Signed By: 01/05/25 1559 DD/ 1558 TD/TT: Supervisor Chassis Assembly: [place] [address] Mammography Report Signed Patient: SIMIN CARO MR#: [id number] : 1970 Acct:[id number] Age/Sex: 54 / F ADM Date: 01/05/25 Loc: MAMMO Attending Dr: SARAH MONTGOMERY Ordering Physician: SARAH MONTGOMERY Results: Date of Service: 01/05/25 Follow Up: Procedure(s): MM tomosynthesis screening BI Accession Number(s): [id number] cc: SARAH MONTGOMERY Patient Name: SIMIN CARO MR#: [id number] : 1970 Exam Date: 01/05/2025 Ordering Doctor: SARAH MONTGOMERY [facility] REPORT PROCEDURE: MM TOMOSYNTHESIS SCREENING BI COMPARISON: MM TOMOSYNTHESIS SCREENING BI, 12/27/2023. INDICATIONS: Screening Calculator Name NCI Breast Cancer Risk Assessment Tool 5 Year Breast Cancer Risk 1.10% Lifetime Breast Canc er Risk 8.20% Personal Breast Canc er No Personal Ovarian Cancer No Treatments None Family Cancers Fathe r with bone cancer at age 69. LOCATION: [facility] BREAST COMPOSITION: There are scattered areas [...] Signed By: 01/05/25 1559 DD/ 1558 TD/TT: Supervisor Chassis Assembly: CBC AUTO DIFF Reviewed date:07/03/2024 10:27:51 AM Interpretation: Performing Lab: Notes/Report: [facility] , White Blood Count 4.9 4.0-11.0 10 [...] Performing Lab: see note ML - [facility] LB XR foot RT min 3V Reviewed date:07/03/2024 10:27:51 AM Interpretation: Performing Lab: Notes/Report: Source Facility: [place] [address] XRay Report Signed Patient: SIMIN CARO MR#: [id number] : 1970 Acct:[id number] Age/Sex: 54 / F ADM Date: 05/28/24 Loc: EC Attending Dr: Los Salmeron D.P.M. Ordering Physician: [place] D.P.M. Date of Service: 05/28/24 Procedure(s): XR foot RT min 3V Accession Number(s): [id number] cc: SARAH MONTGOMERY ; [place] Sal[place]on D.P.M. [place] [address] Patient Name: SIMIN CARO MRN: [id number] date: 1970 Sex: F Assigned Patient Location: Current Patient Location: Accession/Order Number: [id number] Exam Date: 05/28/2024 08:50 Report Date: 05/30/2024 [...] M.D. Signed By: 05/30/241343 DD/ 41 TD/TT: Supervisor Chassis Assembly: [place] [address] XRay Report Signed Patient: SIMIN CARO MR#: [id number] : 1970 Acct:[id number] Age/Sex: 54 / F ADM Date: 05/28/24 Loc: EC Attending Dr: Los Salmeron D.P.M. Ordering Physician: [place] Sal[place] D.P.M. Date of Service: 05/28/24 Procedure(s): XR quintin t RT min 3V Accession Number(s): [id number] cc: SARAH MONTGOMERY ; Los Salmeron D.P.M. [place] [address] Patient Name: SIMIN CARO MRN: [id number] date: 1970 Sex: F Assigned Patient Location: Current Patient Location: Accession/Order Number: [id number] Exam Date: 08:50 Report Date: 05/30/2024 13:42 [...] M.D. Signed By: 05/30/241343 DD/ 41 TD/TT: Supervisor Chassis Assembly: CT ANKLE RT WO CON Reviewed date:07/03/2024 10:27:51 AM Interpretation: Performing Lab: Notes/Report: Source Facility: [place] [address] CT Scan Report Signed Patient: SIMIN CARO MR#: [id number] : 1970 Acct:[id number] Age/Sex: 54 / F ADM Date: 04/07/24 Loc: CT Attending Dr: Adriana Ivan Ordering Physician: Adriana Ivan Date of Service: 04/07/24 Procedure(s): CT ankle RT wo con Accession Number(s): [id number] cc: SARAH MONTGOMERY [place] [address] Patient Name: SIMIN CARO MRN: [id number] date: 1970 Sex: F Assigned Patient Location: CT Current Patient Location: Accession/Order Number: [id number] Exam Date: 04/07/2024 09:00 Report Date: 04/07/2024 [...] Signed By: 04/07/24 1551 DD/ 1549 TD/TT: Supervisor Chassis Assembly: [address] [address] [address] Scan Report Signed Patient: SIMIN CARO MR#: [id number] : 1970 Acct:[id number] Age/Sex: 54 / F ADM Date: 04/07/24 Loc: CT Attending Dr: Anayeli Ivan Ordering Physician: Adriana Ivan Date of Service: 04/07/24 Procedure(s): CT ank le RT wo con Accession Number(s): [id number] cc: SARAH MONTGOMERY [place] [id number] Patient Name: SIMIN CARO MRN: [id number] date: 1970 Sex: F Assigned Patient Location: CT Current Patient Location: Accession/Order Number: [id number] Exam Date: 04/07/2024 09:00 Report Date: 04/07/2024 [...] Signed By: 04/07/24 1551 DD/ 1549 TD/TT: Supervisor Chassis Assembly: NIALL Reviewed date:07/03/2024 10:27:51 AM Interpretation: Performing Lab: Notes/Report: [facility] , Iron 75.0 50.0-170.0 ug/dL Performing Lab: see note ML - [facility] LB XR foot RT min 3V (Not yet r eviewed by provider) Interpretation: Performing Lab: Notes/Report: Source Facility: [facility] [place] [address] [place] [address] XRay Report Signed Patient: SIMIN CARO MR#: [id number] : 1970 Acct:[id number] Age/Sex: 54 / F ADM Date: 08/20/24 Loc: RAD Attending Dr: Los Salmeron D.P.M. Ordering Physician: Los Sal[place]on D.P.M. Date of Service: 08/20/24 Procedure(s): XR foot RT min 3V Accession Number(s): [id number] cc: SARAH MONTGOMERY ; Los Sal[place] D.P.M. [place] [address] Patient Name: SIMIN CARO MRN: [id number] date: 1970 Sex: F Assigned Patient Location: [facility] Current Patient Location: Accession/Order Number: [id number] Exam Date: 08/20/2024 12:55 Report Date: 08/21/2024 [...] Bowling M.D. Signed By: 08/21/24 0554 DD/ 0551 TD/TT: Supervisor Chassis Assembly: [place] [address] XRay Report Signed Patient: SIMIN CARO MR#: [id number] : 1970 Acct:[id number] Age/Sex: 54 / F ADM Date: 08/20/24 Loc: RAD Attending Dr: Los Salmeron D.P.M. Ordering Physician: [place] Sal[place]on D.P.M. Date of Service: 08/20/24 Procedure(s): XR quintin t RT min 3V Accession Number(s): [id number] cc: SARAH MONTGOMERY ; Los Salmeron D.P.M. [place] [address] Patient Name: SIMIN CARO MRN: [id number] date: 1970 Sex: F Assigned Patient Location: [facility] Current Patient Location: Accession/Order Number: [id number] Exam Date: 08/20/2024 12:55 Report Date: 08/21/2024 [...] Bowling M.D. Signed By: 08/21/24 0554 DD/ 0551 TD/TT: Supervisor Chassis Assembly: Occult Blood* Reviewed date:07/04/2024 10:06:18 AM Interpretation: Performing Lab: Notes/Report: [facility] , Occult Blood Negative Performing Lab: see note ML - [facility] LB TSH Reviewed date:07/03/2024 10:27:51 AM Interpretation: Performing Lab: Notes/Report: [facility] , Thyroid Stimulating Hormone 1.409 0.358-3.740 uIU/mL Performing Lab: see note ML - [facility] LB T4 Reviewed date:07/03/2024 10:27:51 AM Interpretation: Performing Lab: Notes/Report: [facility] , T4 Thyroxine 10.60 4.80-13.90 ug/dL Performing Lab: see note ML - [facility] LB PROF 14(COMP METB) Reviewed date:07/03/2024 10:27:51 AM Interpretation: Performing Lab: Notes/Report: [facility] , Sodium 143 136-145 mmol/L Potassium 4.1 [...] 1.1 Performing Lab: see note ML - [facility] LB LIPID PROFILE Reviewed date:07/03/2024 10:27:51 AM Interpretation: Performing Lab: Notes/Report: [facility] , Triglycerides 84 <=150 mg/dL Cholesterol 192 <=200 mg/dL HDL Cholesterol 51 40-60 mg/dL > or =60 mg/dl - LOW CARDIOVASCULAR RISK <40 mg/dl - HIGH CARDIOVASCULAR RISK LDL Cholesterol Calculated 124.2 130-159 mg/dl BORDERLINE HIGH >190 mg/dl VERY HIGH 160-189 mg/dl HIGH <100 mg/dl OPTIMAL 100-129 mg/dl NEAR OR ABOVE OPTIMAL VLDL CHOLESTEROL 16.8 Chol HDL Ratio 3.8 7.1 - 11.0 MODERATE RISK 3.3 - 4.4 LOW RISK >11.0 HIGH RISK 4.4 - 7.1 AVERAGE RISK Performing Lab: see note ML - [facility] GLYCOHEMOGLOBIN A1C Reviewed date:07/03/2024 10:27:51 AM Interpretation: Performing Lab: Notes/Report: [facility] , Glycohemoglobin A1C 5.7 4.5-6.2 % ADA THERAPEUTIC TARGET < 7.0 > 7.0 ADA RECOMMENDED LIMIT 4.0 - 6.0 ACTION SUGGESTED Estimated Average Glucose 117 Performing Lab: see note ML - [facility] FREE T3 Reviewed date:07/03/2024 10:27:51 AM Interpretation: Performing Lab: Notes/Report: [facility] , Free T3 3.32 2.18-3.98 pg/mL Performing Lab: see note ML - [facility] LB Reason For Referral Reason gastric bypass consu lt Diagnosis 1 Class 3 obesity (E66 .01) Referral Organization [facility] Referring Provider First Name Sarah Referring Provider Last Name Rolanda Referring Provider [facility] Referred Provider [place] Referred Provider Specialty General Surg hortencia Referral Priority Routine Reason intermittent facial numbness Diagnosis 1 Facial numbness (R20 .0) Referral Organization [facility] Referring Provider First Name Sarah Referring Provider Last Name Rolanda Referring Provider [facility] Referred Provider Shefali Vasquez Referred Provider Specialty Neurology Referral Priority Routine Reason snoring, fatigue Diagnosis 1 Snoring (R06.83) Referral Organization [facility] Referring Provider First Name Sarah Referring Provider Last Name Rolanda Referring Provider [facility] Referred Provider Shefali Vasquez Referred Provider Specialty Sleep Medici ne Referral Priority Routine Medications Medication SIG (Take, Route, Frequency, Duration) Notes Start Date End Date Status Amitriptyline HCl 50 MG TAKE 2 TABLETS B Y MOUTH AT BEDTIME FOR 30 DAYS Active Vitamin D3 50 MCG (1999) TAKE 1 [...] 1 TABLET EVERY DAY for 90 Active Venlafaxine HCl ER 75 MG TAKE [...] Problem Status W/U Status Risk Notes Problem 00116529 Anxiety disorder , unspecified (F41.9) Active confirmed Problem 793013820295198 Primary osteoarthritis, right ankle and foot (M19.071) Active confirmed Problem 569400219 Other acquired deformities of right foot (M21.6X1) Active confirmed Problem 814815035 Other specified acquired deformities of right lower leg (M21.861) Active confirmed Problem 095624398 Pseudarthrosis after fusion or arthrodesis (M96.0) Active confirmed Problem 22724376 Other postprocedural complications and disorders of genitourinary system (N99.89) Active confirmed Problem 17321910 Pain due to internal orthopedic prosthetic devices, implants and grafts, initial encounter (T84.84XA) Active confirmed Problem 716111409 Presence of functional implant, unspecified (Z96.9) Active confirmed Problem Hypertension (76356466) HTN (hypertension) (I10) Active confirmed Problem Osteoarthritis of knee (569555481) Osteoarthritis of knee (M17.9) Active confirmed Problem Insomnia (809009666) Insomnia (G47.00) Active confirmed Problem 105729270 Enlarged uterus (N85.2) Active confirmed Problem Pain in right foot (678145461146702) Right foot pain (M79.671) Active confirmed Problem Iron deficiency anemia (76718604) Anemia, iron deficiency (D50.9) Active confirmed Problem 506542096 Hallux valgus of right foot (M20.11) Active confirmed Problem 40670139 Iron deficiency anemia, unspecified iron deficiency anemia type (D50.9) Active confirmed Problem 382451989 H/O abdominal hysterectomy (Z90.710) Active confirmed Problem 976434621 Hot flashes, menopausal (N95.1) Active confirmed Problem 0822349686859389 Instability of right ankle joint (M25.371) Active confirmed Problem Essential hypertension (08711327) BP (high blood pressure) (I10) Active confirmed Problem 9782617683603843 Arthritis of right foot (M19.071) Active confirmed Problem 414349449 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) Active confirmed Problem 435300429 Encounter for examination following surgery (Z09) Active confirmed Problem 9057255667242581 Posterior tibia l tendon dysfunction (PTTD) of right lower extremity (M76.821) Active confirmed Problem Morbid obesity (362979039) Class 3 obesity (E66.01) Active confirmed Problem 489840358 Equinus contracture of right ankle (M24.571) Active confirmed Problem 404474214 Acquired valgus deformity of right foot (M21.071) Active confirmed Vital Signs Heart Rate 82 /min 09/02/2024 Temperature 98.2 degrees Fahrenheit 09/02/2024 Respiratory Rate 16 /min 08/20/2024 Blood pressure diastolic 80 mm Hg 01/08/2025 Oximetry 96 % 09/02/2024 Height 63 in 01/08/2025 Blood pressure systolic 122 mm Hg 01/08/2025 Weight 209.6 lbs 01/08/2025 BMI 37.12 kg/m2 01/08/2025 Encounters Encounter Location Date Provider Diagnosis [facility] (POD[facility]) [address] [place] [address] [place] [address] 05/28/2024 Los Salmeron Pseudarthrosis after fusion or arthrodesis M96.0 and Primary osteoarthritis, right ankle and foot M19.071 [facility] ([facility]) [address] [place] [address] [place] [address] 08/20/2024 Los Salmeron Pseudarthrosis after fusion or arthrodesis M96.0 ; Primary osteoarthritis, right ankle and foot M19.071 and Right foot pain M79.671 [facility] ([facility]) [address] [place] [address] [place] [address] 09/02/2024 Los Salmeron Primary osteoarthritis, right ankle and foot M19.071 ; Posterior tibial tendon dysfunction (PTTD) of right lower extremity M76.821 and Pseudarthrosis after fusion or arthrodesis M96.[address] [address] 05/14/2024 Sarah Montgomery Rash and nonspecific skin eruption R21 ; Class 3 obesity E66.01 and Knee pain M25.[address] [address] 05/16/2024 Frank Hoy Osteoarthritis of knee M17.9 and Primary localized osteoarthritis of left knee M17.[address] [address] 06/30/2024 Sarah Montgomery Gastroenteritis K52. 9 ; Anxiety disorder, unspecified F41.9 and HTN (hypertension) I10 [address] [address] 09/08/2024 Sarah Montgomery Pre-operative clearance Z01.818 and Weight loss R63.[address] [address] 12/03/2024 Sarah Montgomery Anxiety disorder, unspecified F41.9 and Facial numbness R20.[address] [address] 01/08/2025 Sarah Montgomery Snoring R06.83 [facility] (PODIATRY) [address] [place] [address] [place] [address] 03/11/2024 Adriana Ivan Primary osteoarthritis, right ankle and foot M19.071 ; Posterior tibial tendon dysfunction (PTTD) of right lower extremity M76.821 ; Pseudarthrosis after fusion or arthrodesis M96.0 and Right foot pain M79.671 [facility] [address] [place] [facility] [place] [address] 01/21/2025 Sarah Montgomery [facility] [address] [place] [facility] [address] 09/08/2024 Sarah Montgomery [facility] [address] [place] [facility] [place] [address] 09/08/2024 Sarah Montgomery Anxiety disorder, unspecified F41.9 [facility] [address] [place] [facility] [address] 09/09/2024 Sarah Montgomery Class 3 obesity E66.01 [facility] [address] [place] [facility] [address] 12/03/2024 Sarah Montgomery [facility] [address] [place] [facility] [place] [address] 01/06/2025 Sarah Montgomery [facility] [address] [place] [facility] [address] 01/12/2025 Sarah Montgomery [facility] [address] [place] [facility] [address] 07/03/2024 Sarah Montgomery [facility] [address] [place] [facility] [address] 07/04/2024 Sarah Montgomery [facility] [address] [place] [facility] [address] 07/09/2024 Sarah Montgomery [facility] [address] [place] [address] 07/14/2024 Los Salmeron [facility] [address] [place] [facility] [address] 08/11/2024 Sarah Montgomery Anxiety disorder, unspecified F41.9 [facility] [address] [facility] [facility] [place] [address] 08/20/2024 Los Salmeron [facility] ([facility]) [address] [facility] [place] [address] 04/18/2024 Adriana Ivan [facility] ([facility]) [address] [facility] [place] [address] 04/21/2024 Adriana Ivan [facility] ([facility]) [address] [facility] [place] [address] 05/01/2024 Los Salmeron [facility] ([facility]) [address] [facility] [place] [address] 06/02/2024 Los Salmeron [facility] ([facility]) [address] [facility] [place] [address] 06/18/2024 Los Salmeron [place] [address] [place] [address] 06/30/2024 Sarah Montgomery Wellness examination Z00.00 [facility] ([facility]) [address] [facility] [place] [address] 04/14/2024 Los Salmeron Assessments Encounter Date Diagnosis (ICD Code) Assessment Notes Treatment Notes Treatment Clinical Notes Section Notes 03/11/2024 Primary osteoarthritis, right ankle and foot (ICD-10 - M19.071) Simin is 8+ weeks s/p revision subtalar joint fusion, DOS: 01/11/24. No evidence of infection or DVT on examination. Incisions are nicely healed.Xrays were reviewed and are satisfactory and swelling is minimal. She may continue advancing to WBAT in the CAM boot. Continue AROM of the ankle.Continue kqvh-eit-puqyhgp analgesia and elevation. Followup with Dr. Salmeron after her CT scan which will be performed on or after 04/03/24. 03/11/2024 Posterior tibial tendon dysfunction (PTTD) of right lower extremity (ICD-10 - M76.821) 05/28/2024 Primary osteoarthritis, right ankle and foot (ICD-10 - M19.071) 05/28/2024 Pseudarthrosis after fusion or arthrodesis (ICD-10 [...] on imaging at the appointment in June. 05/14/2024 Rash and nonspecific skin eruption (ICD-10 [...] fluids has nausea meds at home 08/20/2024 Primary osteoarthritis, right ankle and foot (ICD-10 - M19.071) 08/20/2024 Pseudarthrosis after fusion or arthrodesis (ICD-10 [...] follow-up after the CT scan is performed 09/02/2024 Posterior tibial tendon dysfunction (PTTD) of right lower extremity (ICD-10 - M76.821) 09/08/2024 Weight loss (ICD-10 - R63.4) start after sx if approved work on diet 09/08/2024 Pre-operative clearance (ICD-10 - Z01.818) labs reviewed, ok obtain EKG and review 12/03/2024 Anxiety disorder, unspecified (ICD-10 - F41.9) [...] Class 3 obesity (ICD-10 - E66.01) 09/02/2024 Primary osteoarthritis, right ankle and foot [...] in 3 months sooner if needed. 09/02/2024 Pseudarthrosis after fusion or arthrodesis (ICD-10 - M96.0) 08/20/2024 Right foot pain (ICD-10 - M79.671) 06/30/2024 Anxiety disorder, unspecified (ICD-10 - F41.9) is taking meds routinely has prn xanax helps some did make apt with [facility] fu as needed 05/14/2024 Knee pain (ICD-10 - M25.569) fu Hoy for possible injections 03/11/2024 Pseudarthrosis after fusion or arthrodesis (ICD-10 - M96.0) 03/11/2024 Right foot pain (ICD-10 - M79.671) 06/30/2024 HTN (hypertension) (ICD-10 - I10) continue monitor report next week takes lisinopril 05/14/[address] Pina referral Plan Of Treatment Pending Test Test Name Order Date CMP (COMPLETE METABOLIC PANEL) CMP (COMPLETE METABOLIC PANEL) HEMOGLOBIN A1C (GLYCO) 06/30/2024 HEMOGLOBIN A1C (GLYCO) [...] OCCULT BLOOD 06/30/2024 THYROID PANEL (T4/TSH/FREE T3) THYROID PANEL (T4/TSH/FREE T3) CT FOOT RT WO CON 08/28/2024 XR foot RT min 3V 08/21/2024 Insurance Providers Payer Name Payer Address Payer Phone Subscriber Number Group Number Insured Name Patient Relationship to Insured Coverage Start Date Coverage End Date BCBS OUT OF STATE [address] [place] [phone] [id number] Simin Caro Self - patient is the [...] Fusion, RT Ankle Arthroscopy RT Gastric recession, [place] of distal Tibial Bone Graft 08/14/2022 Laparoscopic Tubal Ligation 1992 Dilation and Curettage of Uterus 2015 Abdominal Hysterectomy with Bilateral Sa lpingectomy 07/25/2017 Left knee replacement 09/16/24 Hospitalization History Reason Date(Month/Year) see above
--- OUTSIDE RECORDS SUMMARY | 2025-03-03 11:58 | XMS_ITS | Patient Health Record ---
Author Organization [facility] Address [address] [place] [address] Care Team Providers Care Secretary To Board Of Commissioners Name Role Phone Dick Arroyo Primary Care Provider Julian Purvis Unavailable [phone] Houston Noel Unavailable [phone] Cara Cope Unavailable [phone] Reason For Referral Reason SEE NOTES........... 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 STEROIND INJECTION ONLY, Ping De La Fuente 04/23/2024 04:03:10 PM >Per Cara, patient can contact PCP to see if they are able to do visco injections for her. Called patient, she has [email or web address] and did not answer the call. Sent a text message. Referral Priority Routine Problems Problem Type SNOMED Code ICD Code Onset Dates Problem Status W/U Status Risk Notes Problem [id number] Pain, joint, kne e, left (M25.562) Active confirmed Problem Primary osteoarthritis of left knee (M17.12) Active confirmed Encounters Encounter Location Date Provider Diagnosis [facility] [address] [facility] [place] [address] [place] [address] 04/07/2024 Houston Noel Primary osteoarthrit is of left knee M17.12 [facility] [address] [facility] [place] [address] [place] [address] 04/21/2024 Cara Cope Primary osteoarthritis of left knee M17.12 Assessments [...] Name Order Date SCC- KNEE 4 VIEW [id number] 04/07/2024 Insurance Providers Payer Name Payer Address Payer Phone Subscriber Number Group Number Insured Name Patient Relationship to Insured Coverage Start Date Coverage End Date [employer] [address] [place] [phone] [id number] LAWRENCE LIZAMA Self - patient is the insured Medications Administered Medication Instructions Date of Administration Dosage Notes BUPIVACAINE 04/07/2024 2 mL Depo-Medrol 04/07/2024 1 mL lidocaine 04/07/2024 2 mL
--- NOTE | 2025-03-03 12:02 | XR_ITS ---
The [address] [address] Patient Name: LAWRENCE LIZAMA MRN: [id number] date: 1970 Sex: F Assigned Patient Location: ER Current Patient Location: ER Accession/Order Number: [id number] Exam Date: 03/03/2025 12:33 Report Date: 03/03/2025 12:34 At the request of: SHAILESH GUILLAUME MD Procedure: XR shoulder LT min 2V XR shoulder LT min 2V 03/03/2025 12:10 PM SIGNS AND SYMPTOMS: Popping sensation in left shoulder with pain radiating down left arm PROTOCOL: Frontal, Grashey, and scapular Y views of the left shoulder COMPARISON: 12/24/2018 FINDINGS: The glenohumeral joint and acromioclavicular joint are preserved. There is no fracture or dislocation. The visualized left hemithorax is grossly intact. XR/XR shoulder LT min 2V IMPRESSION: No fracture or dislocation. No significant degenerative change. Impression dictated by: Juan Sanders M.D. 03/03/2025 12:34 PM Dictation Location: [place] [address] Electronically authenticated by: [id number] Y Date: 03/03/2025 12:34
[2025-03-03] MEDS: KETOROLAC TROMETHAMINE 60 MG/2 ML VIAL IM (13:46)
--- NOTE | 2025-03-03 13:53 | ED.UPPEXIN1 ---
HPI HPI - Extremity Injury (Upper) General Chief Complaint: Extremity Injury, Upper Stated Complaint: L ARM PAIN Time Seen by Provider: 03/03/25 12:09 Source: patient Mode of arrival: walk-in History of Present Illness HPI narrative: Patient presents to the ED with a complaint of left upper extremity tenderness. She states she bent over to pick something up when she felt a pop in her left arm. She has a lot of tenderness picking things up now. She does not have any shoulder pain. No back pain or neck pain. She did not fall or sustain any other injury. She does not have any numbness or tingling in her hand or down her arm. She has tried use some heat on the area but seems to be making it worse. Related Data Home Medications ?Medication ?Instructions ?Recorded ?Confirmed lisinopril 20 mg tablet 20 mg PO QDAY 02/26/23 03/03/25 venlafaxine 75 mg capsule,extended 75 mg PO QDAY 02/26/23 03/03/25 release 24 hr alprazolam 0.5 mg tablet 0.5 mg PO BID 01/01/24 03/03/25 ascorbic acid (vitamin C) 1,000 mg 1 g PO DAILY 01/01/24 03/03/25 capsule ferrous sulfate 325 mg (65 mg 325 mg PO DAILY 01/01/24 03/03/25 iron) tablet venlafaxine 150 mg 150 mg PO DAILY 01/01/24 03/03/25 capsule,extended release 24 hr amitriptyline 50 mg tablet 100 mg PO .QHS 01/11/24 03/03/25 Previous Rx's ?Medication ?Instructions ?Recorded cholecalciferol (vitamin D3) 125 125 mcg PO DAILY 90 days #90 caps 01/11/24 mcg (5,000 unit) capsule methocarbamol 500 mg tablet 500 mg PO Q8H PRN muscle spasm #20 03/03/25 tabs prednisone 20 mg tablet 40 mg (2 x 20 mg) PO DAILY 5 days 03/03/25 #10 tabs Allergies Allergy/AdvReac Type Severity Reaction Status Date / Time Latex, Natural Rubber Allergy Severe Rash Verified 03/03/25 11:54 aspirin AdvReac Nausea Verified 03/03/25 11:54 Opioid HPI Opioid Management Most Recent Pain and Opioid Data: Last Pain Scale 10 Today, 13:46 Last MAR Pain Assessment Today, 13:46 Last ORT Total Score 0 01/10/24, 14:06 Last ORT Risk Category Low Risk 01/10/24, 14:06 PFSH PFS Medical History (Updated 03/03/25 @ 13:53 by DREW SAUCEDO) Anemia ?D64.9 - Anemia, unspecified (ICD-10) PTSD (post-traumatic stress disorder) ?F43.10 - Post-traumatic stress disorder, unspecified (ICD-10) Depression ?F32.A - Depression, unspecified (ICD-10) Panic attacks ?F41.0 - Panic disorder [episodic paroxysmal anxiety] (ICD-10) COVID-19 ?U07.1 - COVID-19 (ICD-10) Migraine ?G43.909 - Migraine, unspecified, not intractable, without status migrainosus (ICD-10) Heartburn ?R12 - Heartburn (ICD-10) Foot pain ?M79.673 - Pain in unspecified foot (ICD-10) Inferior myocardial infarction ?I21.19 - ST elevation (STEMI) myocardial infarction involving other coronary artery of inferior wall (ICD-10) Arthritis ?M19.90 - Unspecified osteoarthritis, unspecified site (ICD-10) Hypertension ?I10 - Essential (primary) hypertension (ICD-10) Hallux valgus ?M20.10 - Hallux valgus (acquired), unspecified foot (ICD-10) Iron deficiency anemia ?D50.9 - Iron deficiency anemia, unspecified (ICD-10) Acquired deformity of right lower leg ?M21.961 - Unspecified acquired deformity of right lower leg (ICD-10) Primary osteoarthritis, right ankle and foot ?M19.071 - Primary osteoarthritis, right ankle and foot (ICD-10) Acquired valgus deformity of right foot ?M21.071 - Valgus deformity, not elsewhere classified, right ankle (ICD-10) Pain due to internal orthopedic prosthetic device ?T84.84XA - Pain due to internal orthopedic prosthetic devices, implants and grafts, initial encounter (ICD-10) Osteoarthritis of right ankle ?M19.071 - Primary osteoarthritis, right ankle and foot (ICD-10) Equinus contracture of right ankle ?M24.571 - Contracture, right ankle (ICD-10) Acquired varus deformity of right foot ?M21.171 - Varus deformity, not elsewhere classified, right ankle (ICD-10) Instability of ankle ?M25.373 - Other instability, unspecified ankle (ICD-10) Enlarged uterus ?N85.2 - Hypertrophy of uterus (ICD-10) Pseudarthrosis after fusion or arthrodesis ?M96.0 - Pseudarthrosis after fusion or arthrodesis (ICD-10) Posterior tibial tendon dysfunction ?M76.829 - Posterior tibial tendinitis, unspecified leg (ICD-10) Anxiety ?F41.9 - Anxiety disorder, unspecified (ICD-10) Chest pain ?R07.9 - Chest pain, unspecified (ICD-10) Surgical History (Updated 01/01/24 @ 14:56 by Jacquelyn Coronado NP) H/O tubal ligation ?Z98.51 - Tubal ligation status (ICD-10) H/O dilation and curettage ?Z98.890 - Other specified postprocedural states (ICD-10) History of hysterectomy ?Z90.710 - Acquired absence of both cervix and uterus (ICD-10) History of ankle surgery ?Z98.890 - Other specified postprocedural states (ICD-10) Family History (Updated 01/01/24 @ 14:56 by Jacquelyn Coronado NP) Other Arthritis Bone cancer Family history of hypertension Social History (Updated 01/01/24 @ 15:03 by Jacquelyn Coronado NP) Within the past year, how often did you have a drink containing alcohol: never Score interpretation: A score less than 3 is consistent with normal alcohol consumption. 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 Highest level of school completed/degree received: high school graduate Little interest or pleasure in doing things: not at all Feeling down, depressed, or hopeless: not at all Exam Constitutional Vital Signs, click to edit/add: Last Vital Signs Temp 97.9 F 03/03/25 11:56 Pulse 67 03/03/25 11:56 Resp 16 03/03/25 11:56 BP 143/96 H 03/03/25 11:56 Pulse Ox 98 03/03/25 11:56 O2 Del Method Room Air 03/03/25 11:56 Documenting provider has reviewed patient's vital signs: yes Common normals: no apparent distress, average body habitus, oriented x3 and no limitations Neck & C-Spine Common normals: full ROM, no lymphadenopathy and supple Respiratory Common normals: normal respiratory effort and clear to auscultation bilaterally Cardio Common normals: regular rate and regular rhythm Extremity General: normal exam except as noted Left upper extremity: upper arm Neuro Common normals: oriented x3 Sensorium/orientation: awake, alert and oriented to person Course Vital Signs Vital signs: Vital Signs Temperature 97.9 F 03/03/25 11:56 Pulse Rate 67 03/03/25 11:56 Respiratory Rate 16 03/03/25 11:56 Blood Pressure 143/96 H 03/03/25 11:56 Pulse Oximetry 98 03/03/25 11:56 Oxygen Delivery Method Room Air 03/03/25 11:56 Temperature 97.9 F 03/03/25 11:56 Pulse Rate 67 03/03/25 11:56 Respiratory Rate 16 03/03/25 11:56 Blood Pressure 143/96 H 03/03/25 11:56 Pulse Oximetry 98 03/03/25 11:56 Oxygen Delivery Method Room Air 03/03/25 11:56 MDM - Extremity Injury (Upper) MDM Narrative Medical decision making narrative: Patient presents to the ED with a complaint of left upper extremity tenderness. She states she bent over to pick something up when she felt a pop in her left arm. She has a lot of tenderness picking things up now. She does not have any shoulder pain. No back pain or neck pain. She did not fall or sustain any other injury. She does not have any numbness or tingling in her hand or down her arm. She has tried use some heat on the area but seems to be making it worse. On exam patient has tenderness in the belly of the bicep. She does have tenderness with attempted elbow flexion and supination consistent with a biceps pathology. She does have tendons that are intact she does have tenderness at the origin of the bicep tendon as well. She has no ecchymosis in the area no signs of bicep tendon rupture or bulging at the bottom of the upper arm. She is neurovascularly intact normal cap refill distally normal pulses distally. Patient has no cervical neck tenderness or spasm. She has no shoulder tenderness good range of motion in all her shoulder movements no sign of rotator cuff dysfunction. X-ray did not show any acute changes. I suspect patient has a strain of her bicep muscle. I discussed with her using some muscle relaxers anti-inflammatories for the discomfort and some gentle stretching over the next few days. She is to follow-up with orthopedics. She was requesting a sling I did give her a sling but cautioned her on constant use she was advised to only use it sparingly if she needed some extra support through the day but very limited use she was agreeable to this plan. Will be discharged home with stable condition at this time Discharge Plan Discharge Chief Complaint: Extremity Injury, Upper Clinical Impression: Strain of left biceps muscle Patient Disposition: Home, Self-Care Time of Disposition Decision: 13:53 Condition: Good Prescriptions / Home Meds: New methocarbamol 500 mg tablet 500 mg PO Q8H PRN (Reason: muscle spasm) Qty: 20 0RF prednisone 20 mg tablet 40 mg PO DAILY 5 Days Qty: 10 0RF No Action lisinopril 20 mg tablet 20 mg PO QDAY venlafaxine 75 mg capsule,extended release 24hr 75 mg PO QDAY venlafaxine 150 mg capsule,extended release 24hr 150 mg PO DAILY alprazolam 0.5 mg tablet 0.5 mg PO BID ascorbic acid (vitamin C) 1,000 mg capsule 1 g PO DAILY ferrous sulfate 325 mg (65 mg iron) tablet 325 mg PO DAILY amitriptyline 50 mg tablet 100 mg PO .QHS cholecalciferol (vitamin D3) 125 mcg (5,000 unit) capsule 125 mcg PO DAILY 90 Days Qty: 90 0RF Print Language: Dutch Instructions: Muscle Strain (DC) Referrals: KEL MONTGOMERY [Primary Care Provider, Family Practice] - 1 week Eris Leyva MD [Physician, Orthopedics] - 1 week Referral Note: 1 week if pain persists or worsens for 10 days Discharge Date/Time: 03/03/25 14:06
== END 2025-03-03 14:06 | disposition home or self-care (01) ==
PROVIDERS: Emergency Provider Emergency Medicine; PCP Nurse Practitioner Family
DX: S46.212A Strain of muscle, fascia and tendon of other parts of biceps, left arm, initial encounter (principal); X58.XXXA Exposure to other specified factors, initial encounter; Z90.710 Acquired absence of both cervix and uterus; Z98.51 Tubal ligation status; Z87.891 Personal history of nicotine dependence
CPT/HCPCS: 73030; 96372; 99284; J1885

== ENCOUNTER 2025-03-10 21:00 | Outpatient (OUT) | payer BC, SELFPAY ==
--- OUTSIDE RECORDS SUMMARY | 2025-03-10 21:03 | XMS_ITS | CCD ---
Author Organization [facility] CliniSymt Care Team Providers Care Rope Cleaner Name Role Phone Grant Alvarenga Unavailable SARAH MONTGOMERY Primary Care Unavailable LOS VENTURA Attending Unavailable LOS VENTURA Consulting Unavailable LOS VENTURA Admitting Unavailable DALTON ALVARENGA Consulting Unavailable SARAH MONTGOMERY Primary Care Unavailable LOS VENTURA Admitting Unavailable LOS VENTURA Attending Unavailable MELISSA, NONE LISTED Primary Care Unavaila laura HERNANDEZ, DR BARBARA Greer Consulting Unavailable NADERERandy, DR DANA Martinez Admitting Unavailable NADERERandy, DR DANA Martinez Attending Unavailable MULUGETA, DR DANA Martinez Consulting Unavailable LOS VENTURA Consulting Unavailable EZIO ., MARY MIKE Consulting Unavailable ZAC II, JODI Consulting Unavailable BORIS PITTMAN Consulting Unavailable SARAH MONTGOMERY Primary Care Unavailable ALEXANDER ., DR JASIEL Hutchinson Admitting Unavaila ble ALEXANDER ., DR JASIEL Hutchinson Attending Unavaila ble ALEXANDER ., DR JASIEL Hutchinson Consulting Unavaila SARAH Ladd Primary Care Unavailable SARAH MONTGOMERY Admitting Unavailable SARAH MONTGOMERY Attending Unavailable ADRIANA KIM Admitting Unavailable MELISSA, NONE LISTED Primary Care Unavaila laura HERNANDEZ, DR BARBARA Greer Consulting Unavailable ADRIANA KIM Attending Unavailable ADRIANA KIM Consulting Unavailable SARAH MONTGOMERY Primary Care Unavailable GRILLIS ., DR JASIEL Hutchinson Admitting Unavaila ble GRILLIS ., DR JASIEL Hutchinson Attending Unavaila ble GRILLICalin ., DR JASIEL Hutchinson Consulting Unavaila JASIEL Avelar Consulting Unavailable ESPERANZA LAMAR Consulting Unavailable SUSIE KEMP Consulting Unavailable SARAH MONTGOMERY Primary Care Unavailable ADRIANA KIM Admitting Unavailable ADRIANA KIM Attending Unavailable ADRIANA KIM Consulting Unavailable LARISSA CHOI Consulting Unavailable MELISSA, NONE LISTED Primary Care UnavailLOS Barrios Consulting Unavailable LOS VENTURA Admitting Unavailable LOS VENTURA Attending Unavailable MARIOLA INFANTE Consulting Unavailable REQUEST, NONE LISTED Primary Care Unavaila ble HIGHLANDER, PETER D Admitting Unavailable HIGHLANDER, LOS Mtz Attending Unavailable RAHUL, DR TERI Padilla Consulting Unavailable HIGHLANDER, LOS Mtz Consulting Unavailable REQUEST, DR NONE LISTED Primary Care Unavaila ble HOY ., DR BUTLER Consulting Unavailable HOY ., DR BUTLER Admitting Unavailable HOY ., DR BUTLER Attending Unavailable NEEL WEBBER Consulting Unavailable VALENTINA, SARAH Primary Care Unavailable VALENTINA, SARAH Admitting Unavailable VALENTINA, SARAH Attending Unavailable VALENTINA, SARAH Primary Care Unavailable VALENTINA, SARAH Admitting Unavailable VALENTINA, SARAH Attending Unavailable VALENTINA, SARAH Consulting Unavailable GRANT ALVARENGA Admitting Unavailable GRANT ALVARENGA Attending Unavailable VALENTINA, SARAH Primary Care Unavailable GRANT ALVARENGA Consulting Unavailable VALENTINA, SARAH Primary Care Unavailable HIGHLANDER, PETER D Attending Unavailable HIGHLANDER, PETER D Consulting Unavailable HIGHLANDER, PETER D Admitting Unavailable VALENTINA, SARAH Primary Care Unavailable HIGHLANDER, LOS D Attending Unavailable HIGHLANDER, PETER D Admitting Unavailable WEST, DR BARBARA Greer Consulting Unavailable HIGHLANDER, LOS Mtz Consulting Unavailable VALENTINA, SARAH Primary Care Unavailable GRILLIS ., DR JASIEL Hutchinson Consulting Unavaila ble GRILLIS ., DR JASIEL Hutchinson Admitting Unavaila ble GRILLIS ., DR JASIEL Hutchinson Attending Unavaila ble VALENTINA, SARAH Primary Care Unavailable GRILLIS ., DR JASIEL Hutchinson Admitting Unavaila ble GRILLIS ., DR JASIEL Hutchinson Attending Unavaila ble GRILLIS ., DR JASIEL Hutchinson Consulting Unavaila ble GIOVANNA, OLLIE JOY Consulting Unava ilESPERANZA Moody Consulting Unavailable VALENTINA, SARAH Primary Care Unavailable HIGHLANDER, PETER D Attending Unavailable HIGHLANDER, PETER D Consulting Unavailable HIGHLANDER, PETER D Admitting Unavailable VALENTINA, SARAH Primary Care Unavailable HIGHLANDER, PETER D Admitting Unavailable HIGHLANDER, PETER D Attending Unavailable VALENTINA, SARAH Primary Care Unavailable HOY ., DR BUTLER Admitting Unavailable HOY ., DR BUTLER Attending Unavailable ADRIANA KIM Admitting Unavailable RAHUL, DR TERI Padilla Consulting Unavailable REQUEST, DR NONE LISTED Primary Care Unavaila ble ADRIANA KIM Attending Unavailable ADRIANA KIM Consulting Unavailable NON STAFF Primary Care Provider UnavailGrant Iyer DO Attending Provider [phone] Valentina NEWS COMMENTATOR-C, Sarah Luna Primary Care Provider NON STAFF Primary Care Provider Unavailabl e Grant Alvarenga DO Attending Provider [phone] Valentina NEWS COMMENTATOR-C, Sarah Luna Primary Care Provider [phone] Sarah Montgomery Primary Care Unavailable Nicole, Grant A Admitting Unavailable Nicole, Grant A Attending Unavailable Nicole Grant A Attending Unavailable NON STAFF Primary Care Unavailable Nicole, Grant A Admitting Unavailable NON STAFF Primary Care Unavailable Steve Bryce Admitting Unavailab le Steve Bryce Attending Unavailab le Nicole, Grant A Admitting Unavailable Sarah Montgomerye Primary Care Unavailable Nicole, Grant A Attending Unavailable Sarah Montgomerye Primary Care Unavailable Nicole, Grant A Admitting Unavailable Nicole Grant A Attending Unavailable Grant Alvarenga DO Attending Provider Valentina NEWS COMMENTATOR-C, Sarah Luna Primary Care Provider Allergies Allergy Classification Reported Allergen(s) Allergy Type Date of Onset Reaction(s) Facility (12 sources) Aspirin Drug Allergy 2 Unknown, itching [facility] (12 sources) Latex Propensity to adverse reactions 2 Unknown, itching [facility] (2 sources) Aspirin Drug Allergy [facility] Repository (2 sources) Latex Drug allergy (disorder) [facility] Repository (1 source) Aspirin Drug Allergy [address] [place] [address] Repository (1 source) Latex Drug allergy (disorder) [address] [place] [address] Repository Medications Current Medications Medication Drug Class(es) Dates Sig (Normalized) Sig (Original) acetaminophen 500 mg oral tablet (15 sources) Start: 09-01-2024 End: 12-10-2024 take 2 tablets by mouth every eight hours Acetaminophen 500 mg tablet Active 1000 MG PO Q8H 180 September 10, 2024 1:00am ALPRAZolam 0.5 mg oral tablet (9 sources) Benzodiazepine Start: 09-01-2024 take 1 tablet by mouth twice daily as needed for anxiety Alprazolam 0.5 mg tablet Active 0.5 MG PO Twice daily as needed for anxiety September 01, 2024 1:00am Start: 09-01-2024 Alprazolam 0.5 mg tablet Active MG PO September 01, 2024 12:00am amitriptyline hydrochloride 50 mg oral tablet (12 sources) Tricyclic Antidepressant Start: 09-01-2024 take 2 tablets by mouth once daily at bedtime Amitriptyline 50 mg tablet Active 100 MG PO Daily at bedtime September 01, 2024 1:00am Start: 09-01-2024 Amitriptyline 50 mg tablet Active MG PO September 01, 2024 12:00am take 1 tablet by [facility] every twenty-four hours Amitriptyline HCl 50 MG 1 tablet at bedtime Orally Once a day Active Ascorbic Acid (7 sources) Vitamin C Start: 09-04-2024 take 1 tablet by mouth once daily Ascorbic Acid (Vitamin C) (C-1000) 1,000 mg tablet Active 1 GM PO Daily September 04, 2024 1:00am Start: 09-04-2024 take 1 tablet by mouth once da chris Ascorbic Acid (Vitamin C) (C-1000) 1,000 mg tablet Active 1 GM PO Daily September 04, 2024 12:00am cholecalciferol 0.05 mg oral tablet (11 sources) Vitamin D Start: 09-01-2024 take 1 tablet by mouth once daily Cholecalciferol (Vitamin D3) (Vitamin D3) 50 mcg (2,000 unit) tablet Active 150 MCG PO Daily September 01, 2024 1:00am Start: 09-01-2024 Cholecalcifero l (Vitamin D3) (Vitamin D3) 50 mcg (2,000 unit) tablet Active PO September 01, 2024 12:00am take 1 capsule by [facility] every week Vitamin D3 1.25 MG (60986 UT) 1 capsule Orally once per week Active ferrous sulfate 325 mg oral tablet (7 sources) Start: 09-04-2024 take 1 tablet by mouth once daily Ferrous Sulfate (Ferosul) 325 mg (65 mg iron) tablet Active 325 MG PO Daily September 04, 2024 1:00am ibuprofen 200 mg oral tablet (7 sources) Nonsteroidal Anti-inflammatory Drug Start: 09-04-2024 Ibuprofen (Advil) 200 mg tablet Active 400 MG PO every 6 to 8 hours as needed for fever or pain September 04, 2024 1:00am lisinopril 20 mg oral tablet (12 sources) Angiotensin Converting Enzyme Inhibitor Start: 09-01-2024 take 1 tablet by mouth once daily in the morning Lisinopril 20 mg tablet Active 20 MG PO Every morning September 01, 2024 1:00am take 1 tablet by corina th every twenty-four hours Lisinopril 20 MG 1 tablet Orally Once a day Active Magnesium (1 source) Start: 12-10-2024 magnesium Active PO December 10, 2024 12:00am 24 hr venlafaxine 75 mg extended release oral capsule (20 sources) Serotonin and Norepinephrine Reuptake Inhibitor Start: 09-04-2024 take 1 capsule by mouth once daily in the morning Venlafaxine 75 mg capsule,extended release 24hr Active 75 MG PO Every morning September 04, 2024 1:00am Start: 09-01-2024 take 1 tablet by corina th once daily in the morning Venlafaxine 150 mg tablet extended release 24hr Active 150 MG PO Every morning September 01, 2024 1:00am take 1 capsule by mo [facility] every twenty-four hours Effexor XR 150 MG 1 capsule with food Orally Once a day Active take 1 capsule by mo uth every twenty-four hours Effexor XR 75 MG 1 capsule with food Orally Once a day Active Completed/Discontinued Medications Medication Drug Class(es) Dates Sig (Normalized) Sig (Original) aspirin 81 mg chewable tablet (11 sources) Platelet Aggregation Inhibitor, Nonsteroidal Anti-inflammatory Drug Start: 09-15-2024 End: 12-10-2024 Aspirin 81 mg tablet,chewable Discontinued 0 .ROUTE .COMPLEX 74 September 15, 2024 7:50am December 10, 2024 1:52pm CHEW AND SWALLOW 1 TABLET TWICE DAILY Start: 09-10-2024 End: 09-15-2024 take 1 tablet by mouth twice daily Aspirin 81 mg tablet,chewable Discontinued 81 MG PO Twice daily 74 37 September 10, 2024 1:00am September 15, 2024 7:51am cyclobenzaprine hydrochloride 10 mg oral tablet (6 sources) Muscle Relaxant Start: 09-10-2024 End: 12-10-2024 take 5-10 mg by mouth every eight hours Cyclobenzaprine 10 mg tablet Discontinued 5 - 10 MG PO Q8H 30 14 September 10, 2024 1:00am December 10, 2024 1:52pm docusate sodium 100 mg oral capsule (6 sources) Start: 09-10-2024 End: 12-10-2024 take 1 capsule by mouth twice daily Docusate Sodium (Colace) 100 mg capsule Discontinued 100 MG PO Twice daily 28 September 10, 2024 1:00am December 10, 2024 1:52pm doxycycline hyclate 100 mg oral tablet (6 sources) Tetracycline-clas s Drug Start: 09-10-2024 End: 12-10-2024 take 1 tablet by mouth twice daily Doxycycline Hyclate 100 mg tablet Discontinued 100 MG PO Twice daily 14 September 10, 2024 1:00am December 10, 2024 1:52pm meloxicam 15 mg oral tablet (12 sources) Nonsteroidal Anti-inflammatory Drug Start: 09-01-2024 End: 09-04-2024 take 1 tablet by mouth once daily Meloxicam 15 mg tablet Discontinued 15 MG PO daily September 01, 2024 1:00am September 04, 2024 12:56pm take 1 tablet by corina th every twenty-four hours Meloxicam 15 MG 1 tablet Orally Once a day Active oxyCODONE hydrochloride 5 mg oral tablet (6 sources) Opioid Agonist Start: 09-10-2024 End: 12-10-2024 take 1 tablet by mouth every four hours as needed for pain Oxycodone 5 mg tablet Discontinued 5 MG PO Q4H as needed for Pain 42 September 10, 2024 December 10, 2024 1:52pm dispense 42 (forty-two) tablets diagnosis M17.12 DO NOT FILL UNTIL 09/15/2024 traMADol hydrochloride 50 mg oral tablet (6 sources) Opioid Agonist Start: 09-10-2024 End: 12-10-2024 take 1 tablet by mouth every four hours as needed for pain Tramadol 50 mg tablet Discontinued 50 MG PO Q4H as needed for Pain 42 September 10, 2024 1:00am December 10, 2024 1:52pm dispense 42 (forty-two) tablets diagnosis M17.12 DO NOT FILL UNTIL 09/15/2024 triamcinolone acetonide 40 mg/ml injectable suspension (2 [...] Weakness; Translations: [WEAKNESS] Onset: 11-20-2022 Episodic Osteoarthritis (20 sources) Primary osteoarthritis, right ankle and foot; Translations: [Unspecified osteoarthritis, unspecified site] Onset: 05-08-2022 Chronic Other acquired deformities (1 source) Contracture, right ankle; Translations: [CONTRACTURE RIGHT ANKLE] Onset: 08-29-2022 Chronic Other connective tissue disease (3 sources) History of total knee arthroplasty; Translations: [Presence of left artificial knee joint] 09-30-2024 Chronic Comment on above: DOS 09/16/[address] Harris Alvarenga Other connective tissue disease (6 sources) Presence of left artificial knee joint; Translations: [Knee joint replacement] 10-01-2024 Chronic Other connective tissue disease (1 source) Triggering of digit; Translations: [Trigger finger, left middle finger] 12-10-2024 Episodic Other connective tissue disease (1 source) Trigger finger, left middle finger; Translations: [Trigger finger (acquired)] 12-10-2024 Episodic Other ear and sense organ disorders (1 [...] INSTABILITY RIGHT ANKLE] Onset: 11-14-2022 Episodic Other non-traumatic joint disorders (1 source) Pain in left knee; Translations: [Pain in left knee] Onset: 09-01-2024 Episodic Other nutritional; endocrine; and metabolic disorders [...] Test Name Value Interpretation Reference Range Facility Amphetamine Screen Ql (U)Ord ered By: BARBARA ESPINOZA on 09-16-2024 Amphetamines Ql (U) Amphetamines screen Negativ e [facility] Barbiturates [Presence] in U rine by Screen methodOrdered By: BARBARA ESPINOZA on 09-16-2024 Barbiturates Screen Ql (U) Barbiturates [Presence] in Urine by Screen method Negative [facility] Benzodiazepines Screen Ql (U )Ordered By: BARBARA ESPINOZA on 09-16-2024 Benzodiazepines Ql (U) Benzodiazepines [Presence] in Urine by Screen method Negative [facility] Benzoylecgonine [Presence] i n Urine by Screen methodOrdered By: BARBARA ESPINOZA on 09-16-2024 Benzoylecgonine Screen Ql (U) Benzoylecgonine [Presence] in Urine by Screen method Negative [facility] Cannabinoids [Presence] in U rine by Screen methodOrdered By: BARBARA ESPINOZA on 09-16-2024 Cannabinoids Screen Ql (U) Cannabinoids [Presence] in Urine by Screen method High Negative [facility] Comment on above: These are unconfirme d results and should not be used for legal purposes. Drug Cut-Off Concentration: AMPH 1000 ng/mL WANG 200 ng/mL ROMEL 200 ng/mL COCM 300 ng/mL OP 300 ng/mL PCP 25 ng/mL THC 20 ng/mL Drug Screen,Urineon 09-16-19 Amphetamine Screen,Urine Negative Normal Negative [facility] Comment on above: Performed By: #### U RDS #### [address] Barbiturate Screen,Urine Negative Normal Negative [facility] Comment on above: Performed By: #### U RDS #### [facility] [address] [place] [address] [place] Benzodiazepines Screen,Urine Negative Normal Negative [facility] Comment on above: Performed By: #### U RDS #### [facility] [address] [place] [address] [place] Cannabinoid Screen,Urine Positive High Negative [facility] Comment on above: Result Comment: Thes e are unconfirmed results and should not be used for legal purposes. Drug Cut-Off Concentration: AMPH 1000 ng/mL WANG 200 ng/mL ROMEL 200 ng/mL COCM 300 ng/mL OP 300 ng/mL PCP 25 ng/mL THC 20 ng/mL PERFORMED BY: [place] [address] PATHOLOGIST BREAKFAST HOST GIUSEPPE METZ M.D. Performed By: #### U RDS #### [address] Cocaine Screen,Urine Negative Normal Negative [facility] Comment on above: Performed By: #### U RDS #### [address] Opiate Screen,Urine Negative Normal Negative [facility] Comment on above: Performed By: #### U RDS #### [address] Phencyclidine Screen,Urine Negative Normal Negative [facility] Comment on above: Performed By: #### U RDS #### [address] 09-16-2024 L - -------- Specimen: [id number] Received: 09/16/24 Status: JUNIOR Abernathy Num: [id number] Spec Type: Surgical Subm Dr: Grant Alvarenga, DO Tissues: A Gross Only (LEFT KNEE) Procedures: Level 1 Gross -------- Age/ Patient Sex Location Account Attending Physician -------- Simin Caro 54/F CT [id number] Grant Alvarenga DO -------- SPEC NUM: [id number] RECD: 09/16/24 STATUS: JUNIOR VAUGHNJohn NUM: [id number] MATHEW: 09/16/24 [facility] DR: Grant Alvarenga DO ENTERED: 09/16/24 [facility] [address]: LAURA TYPE: Surgical DEPT: S ENTERED BY: [id number] RECV BY: [id number] ORDERED: Level 1 Gross ORDERED: Level 1 Gross Pathological Diagnosis Left knee bone and tissue, total knee arthroplasty -Severe degenerative osteoarthritis with patchy markedly associated articular erosion and cortical eburnation, consistent with the severe degenerative joint disease of the left knee. Gross only examination Clinical Information Degenerative joint disease, left knee Gross Description Part A is received in formalin labeled with the patients name, date of , and bone and tissue L knee are gloria-greenwood, granular bone fragments, 8 x 5.5 x 3 cm in aggregate with detached fragments of fibrofatty tissue, 6 x 5 x 2 cm in aggregate. The bone is consistent with portions of femoral condyle and tibial plateau. The articular surfaces are remarkable for granular degeneration and eburnation; the medullary bone is greenwood, firm and uniform. The fibrofatty tissue is sectioned to reveal gloria-pink to yellow-greenwood, glistening and uniform cut surfaces. GROSS ONLY-JG -------- Specimen: [id number] Received: 09/16/24 Status: JUNIOR Abernathy Num: [id number] Spec Type: Surgical Subm Dr: Grant Alvarenga DO Tissues: A Gross Only (LEFT KNEE) Procedures: Level 1 Gross -------- Patient: Simin Caro Masoud [id number] (Continued) -------- Specimen: [id number] Received: 09/16/24 (Continued) Signed (signature on file) Karla Hamlin MD 09/17/24 1631 -------- Specimen: [id number] Received: 09/16/24 Status: JUNIOR Abernathy Num: [id number] Spec Type: Surgical Subm Dr: Grant Alvarenga DO Tissues: A Gross Only (LEFT KNEE) Procedures: Level 1 Gross -------- Patient: Simin Caro [id number] (Continued) -------- Specimen: [id number] Received: 09/16/24 (Continued) Microscopic Description Not performed CPT Codes 38075 -------- -------- Specimen: [id number] Received: 09/16/24 Status: JUNIOR Abernathy Num: [id number] Spec Type: Surgical Subm Dr: Grant Alvarenga DO Tissues: A Gross Only (LEFT KNEE) Procedures: Level 1 Gross -------- Patient: Simin Caro [id number] (Continued) -------- Signed (signature on file) Stanislav-Ron Hamlin MD 09/17/24 1631 Normal [facility] Opiates [Presence] in Urine by Screen methodOrdered By: BARBARA ESPINOZA on 09-16-2024 Opiates Screen Ql (U) Opiates [Presence] in Urine by Screen method Negative [facility] Phencyclidine Screen Ql (U)O rdered By: BARBARA ESPINOZA on 09-16-2024 Phencyclidine Ql (U) Phencyclidine [Presence] in Urine by Screen method Negative [facility] XR knee LT 2Von 09-16-2024 XR knee LT 2V [facility] [place] [address] XRay Report Signed Patient: Simin Caro MR#: [id number] : 1970 Acct:[id number] Age/Sex: 54 / F ADM Date: 09/16/24 Loc: CT Room: Type: [facility] Attending Dr: Grant Alvarenga DO Copies to: Grant Alvarenga DO Ordering Provider: Grant Alvarenga DO Date of Service: 09/16/24 XR/XR knee LT 2V: Total or partial knee, do in PACU 2 views left knee plain film COMPARISON: 09/01/2024 HISTORY: Postop left total knee arthroplasty ACUTE FINDINGS: No acute findings DEGENERATIVE CHANGE: Unremarkable SOFT TISSUE FINDINGS: Anterior soft tissue postsurgical change JOINT EFFUSION: None POSTOP CHANGES: Adequate hardware BONE MINERALIZATION: Adequate XR/XR knee LT 2V IMPRESSION: Uncomplicated left knee arthroplasty Impression dictated by: Arcadio Ontiveros M.D.09/16/2024 4:05 PM Dictation Location: [place] [address] Transcribed By: [facility] 09/16/24 1605 Dictated By: Arcadio Ontiveros DO 09/16/24 1604 Signed By: 09/16/24 1605 Normal [facility] Alanine aminotransferase [En zymatic activity/volume] in Serum or PlasmaOrdered By: Grant Alvarenga on 09-04-2024 ALT [Catalytic activity/Vol] Alanine aminotransferase [Enzymatic activity/volume] in Serum or Plasma 7-52 [facility] Albumin [Mass/volume] in Ser um or Plasma by Bromocresol green (BCG) dye binding methoOrdered By: Grant Alvarenga on 09-04-2024 Albumin BCG dye [Mass/Vol] Albumin [Mass/volume] in Serum or Plasma by Bromocresol green (BCG) dye binding metho 3.5-5.7 [facility] Alkaline phosphatase [Enzyma tic activity/volume] in Serum or PlasmaOrdered By: Grant Alvarenga on 09-04-2024 ALP [Catalytic activity/Vol] Alkaline phosphatase [Enzymatic activity/volume] in Serum or Plasma 34-104 [facility] Appearance of UrineOrdered B y: Grant Alvarenga on 09-04-2024 Appearance (U) Urine appearance Clear [facility] Aspartate aminotransferase [ Enzymatic activity/volume] in Serum or PlasmaOrdered By: Grant Alvarenga on 09-04-2024 AST [Catalytic activity/Vol] Aspartate aminotransferase [Enzymatic activity/volume] in Serum or Plasma 13-39 [facility] Basophils Auto (Bld) [#/Vol] Ordered By: Grant Alvarenga on 09-04-2024 Basophils (Bld) [#/Vol] Automated basoph il count 0.0-0.2 [facility] Basophils/100 WBC Auto (Bld) Ordered By: Grant Alvarenga on 09-04-2024 Basophils/100 WBC (Bld) Automated basophil % . [facility] Bilirubin Test strip Ql (U)O rdered By: Grant Alvarenga on 09-04-2024 Bilirubin Ql (U) Bilirubin.total [Presence] in Urine by Test strip Negative [facility] Bilirubin.total [Mass/volume ] in Serum or PlasmaOrdered By: Grant Alvarnega on 09-04-2024 Bilirubin [Mass/Vol] Bilirubin.total [Mass/volume] in Serum or Plasma Low 0.3-1.0 [facility] CMP with reflex to A1Con Albumin [Mass/Vol] 4.0 g/dL Normal 3.5-5.7 [facility] Comment on above: Performed By: #### C BC, CMP wRFX A1C #### [facility] [address] Albumin/Globulin [Mass ratio] 1.7 {ratio} Normal [facility] Comment on above: Performed By: #### C BC, CMP wRFX A1C #### [facility] [address] [place] [address] ALP [Catalytic activity/Vol] 76 U/L Normal 34-104 [facility] Comment on above: Result Comment: PERF ORMED BY: [place] [address] PATHOLOGIST BREAKFAST HOST GIUSEPPE METZ M.D. Performed By: #### C BC, CMP wRFX A1C #### [address] ALT [Catalytic activity/Vol] 9 U/L Normal 7-52 [facility] Comment on above: Performed By: #### C BC, CMP wRFX A1C #### [facility] [address] [place] [id number] [place] Anion gap [Moles/Vol] 9.2 mmol/L Normal 6.0-15.0 [facility] Comment on above: Performed By: #### C BC, CMP wRFX A1C #### [facility] [address] [place] [address] AST [Catalytic activity/Vol] 13 U/L Normal 13-39 [facility] Comment on above: Performed By: #### C BC, CMP wRFX A1C #### [facility] [address] Bilirubin [Mass/Vol] 0.2 mg/dL Low 0.3-1.0 [facility] Comment on above: Performed By: #### C BC, CMP wRFX A1C #### [facility] [address] [place] [address] [place] Calcium [Mass/Vol] 9.3 mg/dL Normal 8.6-10.3 [facility] Comment on above: Performed By: #### C BC, CMP wRFX A1C #### [place] [address] [place] Chloride [Moles/Vol] 104 mmol/L Normal 98-107 [facility] Comment on above: Performed By: #### C BC, CMP wRFX A1C #### [address] CO2 [Moles/Vol] 29.9 mmol/L Normal 21.0-31.0 [facility] Comment on above: Performed By: #### C BC, CMP wRFX A1C #### [place] [address] [place] Creatinine [Mass/Vol] 0.79 mg/dL Normal 0.60-1.20 [facility] Comment on above: Performed By: #### C BC, CMP wRFX A1C #### [place] [address] [place] GFR/1.73 sq M.predicted MDRD (S/P/Bld) [Vol rate/Area] mL/min/{1.73_m2} Normal [facility] Comment on above: Performed By: #### C BC, CMP wRFX A1C #### [place] [address] [place] Globulin (S) [Mass/Vol] 2.4 g/dL Normal [facility] Comment on above: Performed By: #### C BC, CMP wRFX A1C #### [place] [address] [place] Glucose [Mass/Vol] 94 mg/dL Normal 70-100 [facility] Comment on above: Performed By: #### C BC, CMP wRFX A1C #### [facility] [address] Potassium [Moles/Vol] 4.1 mmol/L Normal 3.5-5.1 [facility] Comment on above: Performed By: #### C BC, CMP wRFX A1C #### [address] Protein [Mass/Vol] 6.4 g/dL Normal 6.4-8.9 [facility] Comment on above: Performed By: #### C BC, CMP wRFX A1C #### [address] Sodium [Moles/Vol] 139 mmol/L Normal 136-145 [facility] Comment on above: Performed By: #### C BC, CMP wRFX A1C #### [address] Urea nitrogen [Mass/Vol] 6 mg/dL Low 7-25 [facility] Comment on above: Performed By: #### C BC, CMP wRFX A1C #### [address] Calcium [Mass/volume] in Ser um or PlasmaOrdered By: Grant Alvarenga on 09-04-2024 Calcium [Mass/Vol] Calcium [Mass/volume ] in Serum or Plasma 8.6-10.3 [facility] Carbon dioxide, total [Moles /volume] in Serum or PlasmaOrdered By: Grant Alvarenga on 09-04-2024 CO2 [Moles/Vol] Carbon dioxide, tota l [Moles/volume] in Serum or Plasma 21.0-31.0 [facility] Chloride [Moles/volume] in S arabella or PlasmaOrdered By: Grant Alvarenga on 09-04-2024 Chloride [Moles/Vol] Chloride [Moles/volume] in Serum or Plasma 98-107 [facility] Color Auto (U)Ordered By: Lucía Alvarenga on 09-04-2024 Color (U) Color of Urine by Auto Yellow [facility] Complete Blood Count Auto Di ffon 09-04-2024 Basophils (Bld) [#/Vol] 0.0 10*3/uL Normal 0.0-0.2 [facility] Comment on above: Result Comment: PERF ORMED BY: [place] [address] PATHOLOGIST BREAKFAST HOST GIUSEPPE METZ M.D. Performed By: #### C BC, CMP wRFX A1C #### [place] [address] [place] Basophils/100 WBC (Bld) 1.0 % Normal . [facility] Comment on above: Performed By: #### C BC, CMP wRFX A1C #### [place] [address] [place] Eosinophils (Bld) [#/Vol] 0.1 10*3/uL Normal 0.0-0.45 [facility] Comment on above: Performed By: #### C BC, CMP wRFX A1C #### [place] [address] [place] Eosinophils/100 WBC (Bld) 2.7 % Normal . [facility] Comment on above: Performed By: #### C BC, CMP wRFX A1C #### [address] Erythrocyte distribution width (RBC) [Ratio] 13.1 % Normal 11.9-15.3 [facility] Comment on above: Performed By: #### C BC, CMP wRFX A1C #### [place] [address] [place] Hematocrit (Bld) [Volume fraction] 40.3 % Normal 34.0-46.4 [facility] Comment on above: Performed By: #### C BC, CMP wRFX A1C #### [place] [address] [place] Hemoglobin (Bld) [Mass/Vol] 14.0 g/dL Normal 11.8-15.4 [facility] Comment on above: Performed By: #### C BC, CMP wRFX A1C #### [address] Lymphocytes (Bld) [#/Vol] 1.2 10*3/uL Normal 1.00-4.8 [facility] Comment on above: Performed By: #### C BC, CMP wRFX A1C #### [address] Lymphocytes/100 WBC (Bld) 32.1 % Normal . [facility] Comment on above: Performed By: #### C BC, CMP wRFX A1C #### [address] MCH (RBC) [Entitic mass] 29.1 pg Normal 24.7-34.3 [facility] Comment on above: Performed By: #### C BC, CMP wRFX A1C #### [address] MCV (RBC) [Entitic vol] 83.9 fL Normal 80-100 [facility] Comment on above: Performed By: #### C BC, CMP wRFX A1C #### [address] Mean Corpuscular HGB Conc 34.7 g/dL Normal 32.0-35.0 [facility] Comment on above: Performed By: #### C BC, CMP wRFX A1C #### [address] Monocytes (Bld) [#/Vol] 0.4 10*3/uL Normal 0.0-0.8 [facility] Comment on above: Performed By: #### C BC, CMP wRFX A1C #### [place] [address] [place] Monocytes/100 WBC (Bld) 10.5 % Normal . [facility] Comment on above: Performed By: #### C BC, CMP wRFX A1C #### [address] Neutrophils (Bld) [#/Vol] 2.0 10*3/uL Normal 1.8-7.7 [facility] Comment on above: Performed By: #### C BC, CMP wRFX A1C #### [address] Neutrophils/100 WBC (Bld) 53.7 % Normal . [facility] Comment on above: Performed By: #### C BC, CMP wRFX A1C #### [address] NRBC% 0.1 /100{WBC} Normal 0-0.5 [facility] Comment on above: Performed By: #### C BC, CMP wRFX A1C #### [address] Platelet mean volume (Bld) [Entitic vol] 8.0 fL Normal 6.3-10.7 [facility] Comment on above: Performed By: #### C BC, CMP wRFX A1C #### [address] Platelets (Bld) [#/Vol] 276 10*3/uL Normal 150-450 [facility] Comment on above: Performed By: #### C BC, CMP wRFX A1C #### [address] RBC (Bld) [#/Vol] 4.81 10*6/uL Normal 3.60-5.00 [facility] Comment on above: Performed By: #### C BC, CMP wRFX A1C #### [place] [address] [place] WBC (Bld) [#/Vol] 3.7 10*3/uL Low 3.8-11.6 [facility] Comment on above: Performed By: #### C BC, CMP wRFX A1C #### [place] [address] [place] Creatinine [Mass/volume] in Serum or PlasmaOrdered By: Grant Alvarenga on 09-04-2024 Creatinine [Mass/Vol] Creatinine [Mass/volume] in Serum or Plasma 0.60-1.20 [facility] ECG 12 lead ECGon 09-04-2024 ECG 12 lead ECG [facility] [place] [address] Electrocardiograph Report Signed Patient: Simin Caro MR#: [id number] : 1970 Acct:[id number] Age/Sex: 54 / F ADM Date: 09/04/24 Loc: PS Room: Type: [facility] CLI Attending Dr: Grant Alvarenga DO Ordering Provider: Grant Alvarenga DO Date of Service: 09/04/2401/21/1127 ECG/ECG 12 lead ECG: LEFT TOTAL KNEE ARTHROPLASTY Copies to: Test Reason : Blood Pressure : */* mmHG Vent. Rate : 73 BPM Atrial Rate : 73 BPM P-R Int : 164 ms QRS Dur : 80 ms QT Int : 386 ms P-R-T Axes : 44 -5 49 degrees QTcB Int : 425 ms Normal sinus rhythm Low voltage QRS Abnormal ECG No previous ECGs available Confirmed by ALFREDO BARNETT MD ([id number]) on 09/04/2024 11:42:51 AM Referred By: Electronically Signed By: ALFREDO BARNETT MD Transcribed By: MUS Signed By Alfredo Barnett MD 0 09/04/24 1142 Normal [facility] Eosinophils Auto (Bld) [#/Vo l]Ordered By: Grant Alvarenga on 09-04-2024 Eosinophils (Bld) [#/Vol] Automated eosinophil count 0.0-0.45 [facility] Eosinophils/100 WBC Auto (Bl d)Ordered By: Grant Alvarenga on 09-04-2024 Eosinophils/100 WBC (Bld) Automated eosinophil % . [facility] Erythrocyte distribution wid th Auto (RBC) [Ratio]Ordered By: Grant Alvarenga on 09-04-2024 Erythrocyte distribution width (RBC) [Ratio] Erythrocyte distribution width [Ratio] by Automated count 11.9-15.3 [facility] Globulin Calc (S) [Mass/Vol] Ordered By: Grant Alvarenga on 09-04-2024 Globulin (S) [Mass/Vol] Serum globulin measurement by calculation (mass/volume) [facility] Glucose [Mass/volume] in Ser um or PlasmaOrdered By: Grant Alvarenga on 09-04-2024 Glucose [Mass/Vol] Glucose [Mass/volume ] in Serum or Plasma 70-100 [facility] Glucose [Mass/volume] in Uri ne by Test stripOrdered By: Grant Alvarenga on 09-04-2024 Glucose Test strip (U) [Mass/Vol] Glucose [Mass/volume] in Urine by Test strip Normal [facility] Hematocrit Auto (Bld) [Volum e fraction]Ordered By: Grant Alvarenga on 09-04-2024 Hematocrit (Bld) [Volume fraction] Hematocrit [Volume Fraction] of Blood by Automated count 34.0-46.4 [facility] Hemoglobin Test strip Ql (U) Ordered By: Grant Alvarenga on 09-04-2024 Hemoglobin Ql (U) Hemoglobin [Presence ] in Urine by Test strip Negative [facility] Hemoglobin [Mass/volume] in BloodOrdered By: Grant Alvarenga on 09-04-2024 Hemoglobin (Bld) [Mass/Vol] Hemoglobin [Mass/volume] in Blood 11.8-15.4 [facility] Ketones Test strip Ql (U)Ord ered By: Grant Alvarenga on 09-04-2024 Ketones Ql (U) Ketones [Presence] i n Urine by Test strip Negative [facility] Leukocyte esterase [Presence ] in Urine by Test stripOrdered By: Grant Alvarenga on 09-04-2024 Leukocyte esterase Test strip Ql (U) Leukocyte esterase [Presence] in Urine by Test strip Negative [facility] Leukocytes [#/volume] correc latisha for nucleated erythrocytes in Blood by Automated counOrdered By: Grant Alvarenga on 09-04-2024 WBC corrected for nucl RBC Auto (Bld) [#/Vol] Leukocytes [#/volume] corrected for nucleated erythrocytes in Blood by Automated coun Low 3.8-11.6 [facility] Lymphocytes Auto (Bld) [#/Vo l]Ordered By: Grant Alvarenga on 09-04-2024 Lymphocytes (Bld) [#/Vol] Lymphocytes [#/volume] in Blood by Automated count 1.00-4.8 [facility] Lymphocytes/100 WBC Auto (Bl d)Ordered By: Grant Alvarenga on 09-04-2024 Lymphocytes/100 WBC (Bld) Lymphocytes/100 leukocytes in Blood by Automated count . [facility] MCH Auto (RBC) [Entitic mass ]Ordered By: Grant Alvarenga on 09-04-2024 MCH (RBC) [Entitic mass] MCH [Entitic ma ss] by Automated count 24.7-34.3 [facility] MCHC Auto (RBC) [Mass/Vol]Or dered By: Grant Alvarenga on 09-04-2024 MCHC (RBC) [Mass/Vol] MCHC [Mass/volume] by Automated count 32.0-35.0 [facility] MCV Auto (RBC) [Entitic vol] Ordered By: Grant Alvarenga on 09-04-2024 MCV (RBC) [Entitic vol] MCV [Entitic vol ume] by Automated count 80-100 [facility] Monocytes Auto (Bld) [#/Vol] Ordered By: Grant Alvarenga on 09-04-2024 Monocytes (Bld) [#/Vol] Automated blood monocyte count 0.0-0.8 [facility] Monocytes/100 WBC Auto (Bld) Ordered By: Grant Alvarenga on 09-04-2024 Monocytes/100 WBC (Bld) Automated monocyte % . [facility] Neutrophils Auto (Bld) [#/Vo l]Ordered By: Grant Alvarenga on 09-04-2024 Neutrophils (Bld) [#/Vol] Neutrophils [#/volume] in Blood by Automated count 1.8-7.7 [facility] Neutrophils/100 WBC Auto (Bl d)Ordered By: Grant Alvarenga on 09-04-2024 Neutrophils/100 WBC (Bld) Automated neutrophil % . [facility] Nitrite Test strip Ql (U)Ord ered By: Grant Alvarenga on 09-04-2024 Nitrite Ql (U) Nitrite [Presence] i n Urine by Test strip Negative [facility] No Panel InformationOrdered By: Grant Alvarenga on 09-04-2024 Estimated GFR (CKD-EPI) > 60.0 mL/Min [facility] Creatinine Clearance (Chem N/A [facility] Nucleated erythrocytes [Pres ence] in Blood by Automated countOrdered By: Grant Alvarenga on 09-04-2024 Nucleated RBC Auto Ql (Bld) Nucleated erythrocytes [Presence] in Blood by Automated count 0-0.5 [facility] Platelet mean volume Auto (B ld) [Entitic vol]Ordered By: Grant Alvarenga on 09-04-2024 Platelet mean volume (Bld) [Entitic vol] Platelet mean volume [Entitic volume] in Blood by Automated count 6.3-10.7 [facility] Platelets Auto (Bld) [#/Vol] Ordered By: Grant Alvarenga on 09-04-2024 Platelets (Bld) [#/Vol] Platelets [#/vol ume] in Blood by Automated count 150-450 [facility] Potassium [Moles/volume] in Serum or PlasmaOrdered By: Grant Alvarenga on 09-04-2024 Potassium [Moles/Vol] Potassium [Moles/volume] in Serum or Plasma 3.5-5.1 [facility] Protein Test strip (U) [Mass /Vol]Ordered By: Grant Alvarenga on 09-04-2024 Protein (U) [Mass/Vol] Protein [Mass/vol ume] in Urine by Test strip Negative [facility] Protein [Mass/volume] in Ser um or PlasmaOrdered By: Grant Alvarenga on 09-04-2024 Protein [Mass/Vol] Protein [Mass/volume ] in Serum or Plasma 6.4-8.9 [facility] RBC Auto (Bld) [#/Vol]Ordere d By: Grant Alvarenga on 09-04-2024 RBC (Bld) [#/Vol] Erythrocytes [#/volume] in Blood by Automated count 3.60-5.00 [facility] Serum or plasma albumin/glob ulin mass ratioOrdered By: Grant Alvarenga on 09-04-2024 Albumin/Globulin [Mass ratio] Serum or plasma albumin/globulin mass ratio [facility] Serum or plasma anion gap de terminationOrdered By: Grant Alvarenga on 09-04-2024 Anion gap [Moles/Vol] Serum or plasma an ion gap determination 6.0-15.0 [facility] Sodium [Moles/volume] in Ser um or PlasmaOrdered By: Grant Alvarenga on 09-04-2024 Sodium [Moles/Vol] Sodium [Moles/volume ] in Serum or Plasma 136-145 [facility] Specific gravity Test strip (U) [Rel density]Ordered By: Grant Nicole on 09-04-2024 Specific gravity (U) [Rel density] Specific gravity of Urine by Test strip 1.001-1.030 [facility] Urea nitrogen [Mass/volume] in Serum or PlasmaOrdered By: Grant Alvarenga on 09-04-2024 Urea nitrogen [Mass/Vol] Urea nitrogen [Mass/volume] in Serum or Plasma Low 7-25 [facility] Urinalysison 09-04-2024 Appearance (U) Clear Normal Clear [facility] Comment on above: Order Comment: Name Collection Type:: Clean-Voided Midstream Performed By: #### U A #### [address] Bilirubin,Urine Negative Normal Negative [facility] Comment on above: Order Comment: Name Collection Type:: Clean-Voided Midstream Performed By: #### U A #### [address] Color (U) Light-Yellow Normal Yellow [facility] Comment on above: Order Comment: Name Collection Type:: Clean-Voided Midstream Performed By: #### U A #### [facility] [address] [place] [address] [place] Glucose Ql (U) Normal Normal Normal [facility] Comment on above: Order Comment: Name Collection Type:: Clean-Voided Midstream Performed By: #### U A #### [place] [address] [place] Ketones Ql (U) Negative Normal Negative [facility] Comment on above: Order Comment: Name Collection Type:: Clean-Voided Midstream Performed By: #### U A #### [place] [id number] [place] Leukocyte esterase Test strip Ql (U) Negative Normal Negative [facility] Comment on above: Order Comment: Name Collection Type:: Clean-Voided Midstream Performed By: #### U A #### [place] [address] [place] Nitrite,Urine Negative Normal Negative [facility] Comment on above: Order Comment: Name Collection Type:: Clean-Voided Midstream Performed By: #### U A #### [address] Occult Blood,Urine Negative Normal Negative [facility] Comment on above: Order Comment: Name Collection Type:: Clean-Voided Midstream Result Comment: PERF ORMED BY: [place] [address] PATHOLOGIST BREAKFAST HOST GIUSEPPE METZ M.D. Performed By: #### U A #### [address] pH (U) 7.5 [pH] Normal 5.0-9.0 [facility] Comment on above: Order Comment: Name Collection Type:: Clean-Voided Midstream Performed By: #### U A #### [address] Protein,Urine Negative Normal Negative [facility] Comment on above: Order Comment: Name Collection Type:: Clean-Voided Midstream Performed By: #### U A #### [address] Specificy [place],Urine 1.011 Normal 1.001-1.030 [facility] Comment on above: Order Comment: Name Collection Type:: Clean-Voided Midstream Performed By: #### U A #### [address] Urobilinogen,Urine Normal Normal Normal [facility] Comment on above: Order Comment: Name Collection Type:: Clean-Voided Midstream Performed By: #### U A #### [address] Urobilinogen Test strip (U) [Mass/Vol]Ordered By: Grant Alvarenga on 09-04-2024 Urobilinogen (U) [Mass/Vol] Urobilinogen [Mass/volume] in Urine by Test strip Normal [facility] WBC Auto (Bld) [#/Vol]Ordere d By: Grant Alvarenga on 09-04-2024 WBC (Bld) [#/Vol] Leukocytes [#/volume ] in Blood by Automated count Low 3.8-11.6 [facility] pH Test strip (U)Ordered By: Grant Alvarenga on 09-04-2024 pH (U) pH of Urine by Test strip 5.0-9.0 [facility] X-ray reportOrdered By: Alvaro Oates on 09-01-2024 Study report [facility] [place] [facility] [place] [address] XRay Report Signed Patient: Simin Caro MR#: [id number] : 1970 Acct:[id number] Age/Sex: 54 / F ADM Date: 5 Loc: [facility] Room: Type: [facility] Attending Dr: Grant Alvarenga DO Copies to: Grant Alvarenga DO~ Ordering Provider: Grant Alvarenga DO Date of Service: 09/01/24 XR/XR knee LT 3V - NOT FOR ER USE: M25.562 - Pain in left knee LEFT KNEE - 3 views CLINICAL HISTORY: Left knee pain for months. COMPARISON: None FINDINGS: Small joint effusion. Moderate degenerative changes with medial weightbearing joint space narrowing. No acute bony process. XR/XR knee LT 3V - NOT FOR ER USE IMPRESSION: MODERATE DEGENERATIVE CHANGES OF THE LEFT KNEE WITHOUT ACUTE BONY PROCESS. Impression dictated by: Fabio Oates Jr., D.OHarris09/01/2024 3:12 PM Dictation Location: [place] [address] Transcribed By: [facility] 09/01/241511 Dictated By: Fabio Oates Jr, DO 09/01/24 151 Signed By: 09/01/24 151 [facility] XR knee LT 3V - NOT FOR ER U Roxane 09-01-2024 XR knee LT 3V - NOT FOR ER USE [facility] [place] [facility] [place] [address] XRay Report Signed Patient: Simin Caro MR#: [id number] : 1970 Acct:[id number] Age/Sex: 54 / F ADM Date: 09/01/24 Loc: [facility] Room: Type: [facility] Attending Dr: Grant Alvarenga DO Copies to: Grant Alvarenga DO Ordering Provider: Grant Alvarenga DO Date of Service: 09/01/24 XR/XR knee LT 3V - NOT FOR ER USE: M25.562 - Pain in left knee LEFT KNEE - 3 views CLINICAL HISTORY: Left knee pain for months. COMPARISON: None FINDINGS: Small joint effusion. Moderate degenerative changes with medial weightbearing joint space narrowing. No acute bony process. XR/XR knee LT 3V - NOT FOR ER USE IMPRESSION: MODERATE DEGENERATIVE CHANGES OF THE LEFT KNEE WITHOUT ACUTE BONY PROCESS. Impression dictated by: Fabio Oates Jr., D.O.09/01/2024 3:12 PM Dictation Location: [place] [address] Transcribed By: [facility] 09/01/24 1512 Dictated By: Fabio Oates Jr, DO 09/01/24 1512 Signed By: 09/01/[address] [facility] XR FOOT RT MIN 3 VIEWSon XR [...] of the hindfoot/midfoot arthrodesis. Electronically authenticated by: Elziabeth INFANTE Date: 2022-11-10 23:57 Normal [facility] US KIDNEYS BLADDERon 023 US KIDNEYS BLADDER US KIDNEYS BLADDER EXAM DATE: 09/23/2022 6:34 AM MST COMPARISON: None available. INDICATION: Recurrent UTI. TECHNIQUE: Real-time ultrasound scanning of the kidneys and bladder was performed by the drop machine operator. Warehouse Specialist static images are submitted for review. [...] Date: 2022-09-23 14:49 Normal [facility] CBC AUTO DIFFon 08-15-2022 BASO # 0.0 103/ul Normal 0.0-0.1 [facility] Comment on above: Performed By: #### C BC #### [facility] [address] [place] [address] Dr. Arianna Hamlin Basophils/100 WBC (Bld) 0.3 % Normal 0.2-2.0 [facility] Comment on above: Performed By: #### C BC #### [facility] [address] [place] [address] Dr. Arianna Hamlin EO # 0.0 103/ul Normal 0.0-0.7 [facility] Comment on above: Performed By: #### C BC #### [facility] [address] [place] [address] Dr. Arianna Hamlin Eosinophils/100 WBC (Bld) 0.1 % Critically low 0.9-7.0 [facility] Comment on above: Performed By: #### C BC #### [facility] [address] [place] [address] Dr. Arianna Hamlin Erythrocyte distribution width (RBC) [Ratio] 12.2 % Normal 11.0-15.0 [facility] Comment on above: Performed By: #### C BC #### [facility] [address] [place] [address] Dr. Arianna Hamlin Hematocrit (Bld) [Volume fraction] 35.9 % Critically low 36.0-48.0 [facility] Comment on above: Performed By: #### C BC #### [facility] [address] [place] [address] Dr. Arianna Hamlin Hemoglobin (Bld) [Mass/Vol] 12.0 g/dL Normal 12.0-16.0 [facility] Comment on above: Performed By: #### C BC #### [facility] [address] [place] [address] Dr. Arianna Hamlin IG # 0.02 10e3/ul Normal 0.00-0.03 [facility] Comment on above: Performed By: #### C BC #### [facility] [address] [place] [address] Dr. Arianna Hamlin IG % 0.3 % Normal 0.0-0.5 [facility] Comment on above: Performed By: #### C BC #### [facility] [address] [place] [address] Dr. Arianna Hamlin LYMPH # 1.8 103/ul Normal 1.2-3.8 [facility] Comment on above: Performed By: #### C BC #### [facility] [address] [place] [address] Dr. Arianna Hamlin Lymphocytes/100 WBC (Bld) 22.8 % Normal 20.5-60.0 [facility] Comment on above: Performed By: #### C BC #### [facility] [address] [place] [address] Dr. Arianna Hamlin MANUAL DIFF REQ NO Normal [facility] Comment on above: Performed By: #### C BC #### [facility] [address] [place] [address] Dr. Arianna Hamlin MCH (RBC) [Entitic mass] 27.8 pg Normal 26.7-34.0 [facility] Comment on above: Performed By: #### C BC #### [facility] [address] [place] [address] Dr. Arianna Hamlin MCHC (RBC) [Mass/Vol] 33.4 g/dL Normal 29.9-35.2 [facility] Comment on above: Performed By: #### C BC #### [facility] [address] [place] [address] Dr. Arianna aHmlin MCV (RBC) [Entitic vol] 83.1 fL Normal 81.0-99.0 [facility] Comment on above: Performed By: #### C BC #### [facility] [address] [place] [address] Dr. Arianna Hamlin MONO # 0.9 103/ul Critically high 0.3-0.8 [facility] Comment on above: Performed By: #### C BC #### [facility] [address] [place] [address] Dr. Arianna Hamlin Monocytes/100 WBC (Bld) 10.8 % Normal 1.7-12.0 [facility] Comment on above: Performed By: #### C BC #### [facility] [address] [place] [address] Dr. Arianna Hamlin NEUT # 5.2 103/ul Normal 1.4-6.5 [facility] Comment on above: Performed By: #### C BC #### [facility] [address] [place] [address] Dr. Arianna Hamlin Neutrophils/100 WBC (Bld) 65.7 % Normal 43.0-75.0 [facility] Comment on above: Performed By: #### C BC #### [facility] [address] [place] [address] Dr. Arianna Hamlin Platelet mean volume (Bld) [Entitic vol] 10.2 fL Normal 9.5-13.5 [facility] Comment on above: Performed By: #### C BC #### [facility] [address] [place] [address] Dr. Arianna Hamlin PLT 243 103/ul Normal 150-450 [facility] Comment on above: Performed By: #### C BC #### [facility] [address] [place], [place] [id number] Dr. Arianna Hamlin RBC 4.32 106/ul Normal 4.20-5.40 [facility] Comment on above: Performed By: #### C BC #### [facility] [address] [place] [address] Dr. Arianna Hamlin WBC 7.9 103/ul Normal 4.0-11.0 [facility] Comment on above: Performed By: #### C BC #### [facility] [address] [place] [address] Dr. Arianna Hamlin PROF CHEM 8 (BAS METB)on Anion gap [Moles/Vol] 10.8 mmol/L Normal [facility] Comment on above: Performed By: #### B MP #### [facility] [address] [place] [address] Dr. Arianna Hamlin Calcium [Mass/Vol] 9.0 mg/dL Normal 8.5-10.1 [facility] Comment on above: Performed By: #### B MP #### [facility] [address] [place] [address] Dr. Arianna Hamlin Chloride [Moles/Vol] 101 mmol/L Normal 98-107 [facility] Comment on above: Performed By: #### B MP #### [facility] [address] [place] [address] Dr. Arianna Hamlin CO2 [Moles/Vol] 30.8 mmol/L Normal 21.0-32.0 [facility] Comment on above: Performed By: #### B MP #### [facility] [address] [place] [address] Dr. Arianna Hamlin Creatinine [Mass/Vol] 0.79 mg/dL Normal 0.55-1.02 [facility] Comment on above: Performed By: #### B MP #### [facility] [address] [place] [address] Dr. Arianna Hamlin EGFR-AF [facility] >60 Normal >=60 [facility] Comment on above: Performed By: #### B MP #### [facility] [address] [place] [address] Dr. Arianna Hamlin EGFR-NON AF [facility] >60 Normal >=60 [facility] Comment on above: Performed By: #### B MP #### [facility] [address] [place] [address] Dr. Arianna Hamlin Glucose [Mass/Vol] 110 mg/dL Critically high 74-[address] [facility] Comment on above: Performed By: #### B MP #### [facility] [address] [place] [address] Dr. Arianna Hamlin Potassium [Moles/Vol] 3.6 mmol/L Normal 3.5-5.1 [facility] Comment on above: Performed By: #### B MP #### [facility] [address] [place] [address] Dr. Arianna Hamlin Sodium [Moles/Vol] 139 mmol/L Normal 136-145 [facility] Comment on above: Performed By: #### B MP #### [facility] [address] [place] [address] Dr. Arianna Hamlin Urea nitrogen [Mass/Vol] 8.0 mg/dL Normal 7.0-18.0 [facility] Comment on above: Performed By: #### B MP #### [facility] [address] [place] [address] Dr. Arianna Hamlin Urea nitrogen/Creatinine [Mass ratio] 10.1 mg/mg Normal [facility] Comment on above: Performed By: #### B MP #### [facility] [address] [place] [address] Dr. Arianna Hamlin UA RANDOMon 08-15-2022 Bilirubin Ql (U) Negative Normal NEGATIVE [facility] Comment on above: Performed By: #### C BC #### [facility] [address] [place] [address] Dr. Arianna Hamlin Clarity (U) CLEAR Normal CLEAR [facility] Comment on above: Performed By: #### C BC #### [facility] [address] [place] [address] Dr. Arianna Hamlin Glucose Ql (U) Negative Normal NEGATIVE [facility] Comment on above: Performed By: #### C BC #### [facility] [address] [place] [address] Dr. Arianna Hamlin Hemoglobin Ql (U) Negative Normal NEGATIVE [facility] Comment on above: Performed By: #### C BC #### [facility] [address] [place] [address] Dr. Arianna Hamlin Ketones Ql (U) Negative Normal NEGATIVE [facility] Comment on above: Performed By: #### C BC #### [facility] [address] [place] [address] Dr. Arianna Hamlin LEUKOCYTES MODERATE Abnormal NEGATIVE [facility] Comment on above: Performed By: #### C BC #### [facility] [address] [place] [address] Dr. Arianna Hamlin Nitrite Ql (U) Negative Normal NEGATIVE [facility] Comment on above: Performed By: #### C BC #### [facility] [address] [place] [address] Dr. Arianna Hamlin pH (U) 7.0 [pH] Normal 5-9 [facility] Comment on above: Performed By: #### C BC #### [facility] [address] [place] [address] Dr. Arianna Hamlin SPEC GRAVITY 1.010 Normal 1.005-<=1.02 5 [facility] Comment on above: Performed By: #### C BC #### [facility] [address] [place] [address] Dr. Arianna Hamlin UA PROTEIN Negative Normal NEGATIVE/ TRACE [facility] Comment on above: Performed By: #### C BC #### [facility] [address] [place] [address] Dr. Arianna Hamlin Urobilinogen Qn (U) 0.2 {Ayden'U}/dL Normal 0.2 - 1. 0 [facility] Comment on above: Performed By: #### C BC #### [facility] [address] [place] [address] Dr. Arianna Hamlin XR FOOT RT 2Von [...] by: BARBARA HERNANDEZ Date: 2022-08-15 08:59 Normal [facility] POINT OF CARE GLUCOSEon 07-30 Glucose [Mass/Vol] 138 mg/dL Critically high 74-106 [facility] Comment on above: Performed By: #### P OCGLUC #### [facility] [address] [place] [address] Dr. Arianna Hamlin Glucose [Mass/Vol] 94 mg/dL Normal 74-106 [facility] Comment on above: Performed By: #### P OCGLUC #### [facility] [address] [place] [address] Dr. Arianna Hamlin CBC AUTO DIFFon 08-08-2022 BASO # 0.0 103/ul Normal 0.0-0.1 [facility] Comment on above: Performed By: #### C BC #### [facility] [address] [place] [address] Dr. Arianna Hamlin Basophils/100 WBC (Bld) 0.7 % Normal 0.2-2.0 [facility] Comment on above: Performed By: #### C BC #### [facility] [address] [place] [address] Dr. Arianna Hamlin EO # 0.1 103/ul Normal 0.0-0.7 [facility] Comment on above: Performed By: #### C BC #### [facility] [address] [place] [address] Dr. Arianna Hamlin Eosinophils/100 WBC (Bld) 1.3 % Normal 0.9-7.0 [facility] Comment on above: Performed By: #### C BC #### [facility] [address] [place] [address] Dr. Arianna Hamlin Erythrocyte distribution width (RBC) [Ratio] 12.3 % Normal 11.0-15.0 [facility] Comment on above: Performed By: #### C BC #### [facility] [address] [address] [address] Arianna Hamlin Hematocrit (Bld) [Volume fraction] 38.4 % Normal 36.0-48.0 [facility] Comment on above: Performed By: #### C BC #### [facility] [address] [address] [address] Arianna Hamlin Hemoglobin (Bld) [Mass/Vol] 13.2 g/dL Normal 12.0-16.0 [facility] Comment on above: Performed By: #### C BC #### [facility] [address] [address] [address] Arianna Hamlin IG # 0.01 10e3/ul Normal 0.00-0.03 [facility] Comment on above: Performed By: #### C BC #### [facility] [address] [address] [address] Arianna Hamlin IG % 0.2 % Normal 0.0-0.5 [facility] Comment on above: Performed By: #### C BC #### [facility] [address] [address] [address] Arianna Hamlin LYMPH # 1.8 103/ul Normal 1.2-3.8 [facility] Comment on above: Performed By: #### C BC #### [facility] [address] [address] [address] Arianna Hamlin Lymphocytes/100 WBC (Bld) 30.8 % Normal 20.5-60.0 [facility] Comment on above: Performed By: #### C BC #### [facility] [address] [place] [address] Dr. Arianna Hamlin MANUAL DIFF REQ NO Normal [facility] Comment on above: Performed By: #### C BC #### [facility] [address] [place] [address] Dr. Arianna Hamlin MCH (RBC) [Entitic mass] 27.7 pg Normal 26.7-34.0 [facility] Comment on above: Performed By: #### C BC #### [facility] [address] [address] [address] Arianna Hamlin MCHC (RBC) [Mass/Vol] 34.4 g/dL Normal 29.9-35.2 [facility] Comment on above: Performed By: #### C BC #### [facility] [address] [address] [address] Arianna Hamlin MCV (RBC) [Entitic vol] 80.7 fL Critically low 81.0-99. 0 [facility] Comment on above: Performed By: #### C BC #### [facility] [address] [address] [address] Arianna Hamlin MONO # 0.4 103/ul Normal 0.3-0.8 [facility] Comment on above: Performed By: #### C BC #### [facility] [address] [place] [address] Dr. Arianna Hamlin Monocytes/100 WBC (Bld) 7.1 % Normal 1.7-12.0 [facility] Comment on above: Performed By: #### C BC #### [facility] [address] [place] [address] Dr. Arianna Hamlin NEUT # 3.6 103/ul Normal 1.4-6.5 [facility] Comment on above: Performed By: #### C BC #### [facility] [address] [place] [address] Dr. Arianna Hamlin Neutrophils/100 WBC (Bld) 59.9 % Normal 43.0-75.0 [facility] Comment on above: Performed By: #### C BC #### [facility] [address] [address] [address] Arianna Hamlin Platelet mean volume (Bld) [Entitic vol] 9.5 fL Normal 9.5-13.5 [facility] Comment on above: Performed By: #### C BC #### [facility] [address] [place] [address] Dr. Arianna Hamlin PLT 248 103/ul Normal 150-450 [facility] Comment on above: Performed By: #### C BC #### [facility] [address] [place] [address] Dr. Arianna Hamlin RBC 4.76 106/ul Normal 4.20-5.40 [facility] Comment on above: Performed By: #### C BC #### [facility] [address] [place] [address] Dr. Arianna Hamlin WBC 5.9 103/ul Normal 4.0-11.0 [facility] Comment on above: Performed By: #### C BC #### [facility] [address] [place] [address] Dr. Arianna Hamlin Covid-19 PCR (CVDTB)on 07-30 SARS-CoV-2 (COVID-19) RNA RICHARD+probe Ql (Unsp spec) Not detected Normal NOT DETECTED [facility] Comment on above: Result Comment: This test is not yet approved or cleared by the [place] FDA. When there are no FDA-approved or cleared tests available, and other criteria are met, FDA can make tests available under an emergency access mechanism called an Emergency Use Authorization (EUA). The EUA for this test is supported by the [place] of Health and Human Service's (HHS's) declaration [...] By: #### C VDTBH #### [facility] [address] [place] [address] Dr. Arianna Hamlin PROF CHEM 8 (BAS METB)on Anion gap [Moles/Vol] 10.1 mmol/L Normal Th e [facility] Comment on above: Performed By: #### B MP #### [facility] [address] [place] [address] Dr. Arianna Hamlin Calcium [Mass/Vol] 9.2 mg/dL Normal 8.5-10.1 [facility] Comment on above: Performed By: #### B MP #### [facility] [address] [address] [address] Arianna Hamlin Chloride [Moles/Vol] 103 mmol/L Normal 98-107 [facility] Comment on above: Performed By: #### B MP #### [facility] [address] [address] [address] Arianna Hamlin CO2 [Moles/Vol] 30.7 mmol/L Normal 21.0-32.0 [facility] Comment on above: Performed By: #### B MP #### [facility] [address] [place] [address] Dr. Arianna Hamlin Creatinine [Mass/Vol] 0.86 mg/dL Normal 0.55-1.02 [facility] Comment on above: Performed By: #### B MP #### [facility] [address] [place] [address] Dr. Arianna Hamlin EGFR-AF [facility] >60 Normal >=60 [facility] Comment on above: Performed By: #### B MP #### [facility] [address] [place] [address] Dr. Arianna Hamlin EGFR-NON AF [facility] >60 Normal >=60 [facility] Comment on above: Performed By: #### B MP #### [facility] [address] [place] [address] Dr. Arianna Hamlin Glucose [Mass/Vol] 77 mg/dL Normal 74-106 [facility] Comment on above: Performed By: #### B MP #### [facility] [address] [place] [address] Dr. Arianna Hamlin Potassium [Moles/Vol] 3.8 mmol/L Normal 3.5-5.1 [facility] Comment on above: Performed By: #### B MP #### [facility] [address] [place] [address] Dr. Arianna Hamlin Sodium [Moles/Vol] 140 mmol/L Normal 136-145 [facility] Comment on above: Performed By: #### B MP #### [facility] [address] [address] [address] Arianna Hamlin Urea nitrogen [Mass/Vol] 8.0 mg/dL Normal 7.0-18.0 [facility] Comment on above: Performed By: #### B MP #### [facility] [id number] Arianna Hamlin Urea nitrogen/Creatinine [Mass ratio] 9.3 mg/mg Normal [facility] Comment on above: Performed By: #### B MP #### [facility] [address] [address] [address] Arianna Hamlin Covid-19 PCR ([facility])on SARS-CoV-2 (COVID-19) RNA RICHARD+probe Ql (Unsp spec) Not detected Normal NOT DETECTED [facility] Comment on above: Result Comment: This test is not yet approved or cleared by the [place] FDA. When there are no FDA-approved or cleared tests available, and other criteria are met, FDA can make tests available under an emergency access mechanism called an Emergency Use Authorization (EUA). The EUA for this test is supported by the [place] of Health and Human Service's (HHS's) declaration [...] By: #### B MP #### [facility] [address] [address] [address] Arianna Hamlin MRI ANKLE RT WO [...] Date: 2022-06-24 12:09 Normal [facility] H PYLORI TISSUEon 05-17-2022 H PYL TISSUE, UREASE Negative Normal NEGATIVE [facility] Comment on above: Performed By: #### B MP #### [facility] [address] [place], [place] [address] Dr. Arianna Hamlin Covid-19 PCR ([facility])on 04-29 SARS-CoV-2 (COVID-19) RNA RICHARD+probe Ql (Unsp spec) Not detected Normal NOT DETECTED [facility] Comment on above: Result Comment: This test is not yet approved or cleared by the [place] FDA. When there are no FDA-approved or cleared tests available, and other criteria are met, FDA can make tests available under an emergency access mechanism called an Emergency Use Authorization (EUA). The EUA for this test is supported by the [place] of Health and Human Service's (HHS's) declaration [...] By: #### C VDTBH #### [facility] [address] [place], [place] [address] Dr. Arianna Hamlin FLORINA by IFAon 05-11-2022 Antinuclear Antibodies, IFA Negative Normal [facility] Comment on above: Result Comment: Nega tive <1:80 Borderline 1:80 Positive >1:80 ICAP nomenclature: AC-0 For more information about Hep-2 cell patterns use ANApatterns.org, the official website for the International Consensus on Antinuclear Antibody (FLORINA) Patterns (ICAP). Performed By: #### B MP #### [facility] [address] [place] [address] Dr. Arianna Hamlin CULTURE URINEon 05-11-2022 CULTURE URINE Isolate 1 Escherichia coli >100,000 cfu/mL of ORGANISM 1 Escherichia coli ANTIBIOTIC M.I.C RX STATUS Ampicillin 4 S C Ampicillin/Sulbactam <=2 S C Piperacillin/Tazobact am <=4 S C Cefazolin <=4 S C Ceftazidime <=1 S C Ceftriaxone <=1 S C Ertapenem <=0.5 S C Imipenem <=0.25 S C Amikacin <=2 S C Gentamicin <=1 S C Tobramycin <=1 S C Ciprofloxacin <=0.25 S C Levofloxacin <=0.12 S C Nitrofurantoin <=16 S C Trimethoprim/Sulfamet hoxazole <=20 S C Normal The [facility] Comment on above: Performed By: #### C BC #### [facility] [address] [place] [address] Dr. Arianna Hamlin ANTISTREPTOLYSIN O AB (ASO)o n 05-10-2022 Antistreptolysin O Ab 45.8 IU/mL Normal 0.0-200.0 [facility] Comment on above: Performed By: #### C BC #### [facility] [address] [place] [address] Dr. Arianna Hamlin RHEUMATOID FACTORon 05-10-20 22 RA Latex Turbid. <10.0 Normal <14.0 [facility] Comment on above: Performed By: #### B MP #### [facility] [address] [place] [address] Dr. Arianna Hamlin CRPon 05-08-2022 CRP [Mass/Vol] mg/L Normal <=1.0 [facility] Comment on above: Performed By: #### C BC #### [facility] [address] [place] [address] Dr. Arianna Hamlin UA RANDOM W/MICROSCOPICon BACTERIA LARGE Abnormal NONE SEEN [facility] Comment on above: Performed By: #### U AMIC #### [facility] [address] [address] [address] Arianna Hamlin Bilirubin Ql (U) Negative Normal NEGATIVE [facility] Comment on above: Performed By: #### U AMIC #### [facility] [address] [address] [address] Arianna Hamlin CAST NONE SEEN Normal NONE SEEN [facility] Comment on above: Performed By: #### U AMIC #### [facility] [address] [address] [address] Arianna Hamlin Clarity (U) CLEAR Normal CLEAR [facility] Comment on above: Performed By: #### U AMIC #### [facility] [address] [place] [address] Dr. Arianna Hamlin Color (U) LT. YELLOW Normal YELLOW [facility] Comment on above: Performed By: #### U AMIC #### [facility] [address] [address] [address] Arianna Hamlin Crystals LM Nom (Urine sed) NONE SEEN Normal NONE SEEN [facility] Comment on above: Performed By: #### U AMIC #### [facility] [address] [address] [address] Arianna Hamlin Epithelial cells LM Ql (Urine sed) FEW Abnormal NONE SEEN /RARE [facility] Comment on above: Performed By: #### U AMIC #### [facility] [address] [address] [address] Arianna Hamlin Glucose Ql (U) Negative Normal NEGATIVE [facility] Comment on above: Performed By: #### U AMIC #### [facility] [address] [address] [address] Arianna Hamlin Hemoglobin Ql (U) SMALL Abnormal NEGATIVE [facility] Comment on above: Performed By: #### U AMIC #### [facility] [address] [address] [address] Arianna Hamlin Ketones Ql (U) TRACE Abnormal NEGATIVE [facility] Comment on above: Performed By: #### U AMIC #### [facility] [address] [address] [address] Arianna Hamlin LEUKOCYTES MODERATE Abnormal NEGATIVE [facility] Comment on above: Performed By: #### U AMIC #### [facility] [address] [address] [address] Arianna Hamlin MUCOUS NONE SEEN Normal NONE SEEN [facility] Comment on above: Performed By: #### U AMIC #### [facility] [address] [address] [address] Arianna Hamlin Nitrite Ql (U) Positive Abnormal NEGATIVE [facility] Comment on above: Performed By: #### U AMIC #### [facility] [address] [address] [address] Arianna Hamlin pH (U) 6.0 [pH] Normal 5-9 [facility] Comment on above: Performed By: #### U AMIC #### [facility] [address] [place] [address] Dr. Arianna Hamlin RBC 2-5 Abnormal 0-2 [facility] Comment on above: Performed By: #### U AMIC #### [facility] [address] [place] [address] Dr. Arianna Hamlin SPEC GRAVITY >=1.030 Abnormal 1.005-<=1.02 5 [facility] Comment on above: Performed By: #### U AMIC #### [facility] [address] [place] [address] Dr. Arianna Hamlin UA PROTEIN Negative Normal NEGATIVE/ TRACE [facility] Comment on above: Performed By: #### U AMIC #### [facility] [address] [place] [address] Dr. Arianna Hamlin Urobilinogen Qn (U) 0.2 {Ayden'U}/dL Normal 0.2 - 1. 0 [facility] Comment on above: Performed By: #### U AMIC #### [facility] [address] [place] [address] Dr. Arianna Hamlin WBC 20-50 Abnormal NONE SEEN [facility] Comment on above: Performed By: #### U AMIC #### [facility] [address] [place] [address] Dr. Arianna Hamlin URIC ACID SERUMon 05-08-2022 Urate [Mass/Vol] 4.1 mg/dL Normal 2.6-6.0 [facility] Comment on above: Performed By: #### U BETY, CRP #### [facility] [address] [place] [address] Dr. Arianna Hamlin CBC AUTO DIFFon 01-24-2022 BASO # 0.1 103/ul Normal 0.0-0.1 [facility] Comment on above: Performed By: #### C BC #### [facility] [address] [place] [address] Dr. Arianna Hamlin Basophils/100 WBC (Bld) 0.9 % Normal 0.2-2.0 [facility] Comment on above: Performed By: #### C BC #### [facility] [address] [place] [address] Dr. Arianna Hamlin EO # 0.1 103/ul Normal 0.0-0.7 [facility] Comment on above: Performed By: #### C BC #### [facility] [address] [place] [address] Dr. Arianna Hamlin Eosinophils/100 WBC (Bld) 2.2 % Normal 0.9-7.0 [facility] Comment on above: Performed By: #### C BC #### [facility] [address] [place] [address] Dr. Arianna Hamlin Erythrocyte distribution width (RBC) [Ratio] 12.7 % Normal 11.0-15.0 [facility] Comment on above: Performed By: #### C BC #### [facility] [address] [place] [address] Dr. Arianna Hamlin Hematocrit (Bld) [Volume fraction] 42.6 % Normal 36.0-48.0 [facility] Comment on above: Performed By: #### C BC #### [facility] [address] [place] [address] Dr. Arianna Hamlin Hemoglobin (Bld) [Mass/Vol] 14.2 g/dL Normal 12.0-16.0 [facility] Comment on above: Performed By: #### C BC #### [facility] [address] [place] [address] Dr. Arianna Hamlin IG # 0.02 10e3/ul Normal 0.00-0.03 [facility] Comment on above: Performed By: #### C BC #### [facility] [address] [place] [address] Dr. Arianna Hamlin IG % 0.4 % Normal 0.0-0.5 [facility] Comment on above: Performed By: #### C BC #### [facility] [address] [place] [address] Dr. Arianna Hamlin LYMPH # 2.0 103/ul Normal 1.2-3.8 [facility] Comment on above: Performed By: #### C BC #### [facility] [address] [place] [address] Dr. Arianna aHmlin Lymphocytes/100 WBC (Bld) 38.1 % Normal 20.5-60.0 [facility] Comment on above: Performed By: #### C BC #### [facility] [address] [place] [address] Dr. Arianna Hamlin MANUAL DIFF REQ NO Normal [facility] Comment on above: Performed By: #### C BC #### [facility] [address] [place] [address] Dr. Arianna Hamlin MCH (RBC) [Entitic mass] 28.1 pg Normal 26.7-34.0 [facility] Comment on above: Performed By: #### C BC #### [facility] [address] [place] [address] Dr. Arianna Hamlin MCHC (RBC) [Mass/Vol] 33.3 g/dL Normal 29.9-35.2 [facility] Comment on above: Performed By: #### C BC #### [facility] [address] [place] [address] Dr. Arianna Hamlin MCV (RBC) [Entitic vol] 84.4 fL Normal 81.0-99.0 [facility] Comment on above: Performed By: #### C BC #### [facility] [address] [place] [address] Dr. Arianna Hamlin MONO # 0.4 103/ul Normal 0.3-0.8 [facility] Comment on above: Performed By: #### C BC #### [facility] [address] [place] [address] Dr. Arianna Hamlin Monocytes/100 WBC (Bld) 7.3 % Normal 1.7-12.0 [facility] Comment on above: Performed By: #### C BC #### [facility] [address] [place] [address] Dr. Arianna Hamlin NEUT # 2.7 103/ul Normal 1.4-6.5 [facility] Comment on above: Performed By: #### C BC #### [facility] [address] [place] [address] Dr. Arianna Hamlin Neutrophils/100 WBC (Bld) 51.1 % Normal 43.0-75.0 [facility] Comment on above: Performed By: #### C BC #### [facility] [address] [place] [address] Dr. Arianna Hamlin Platelet mean volume (Bld) [Entitic vol] 9.8 fL Normal 9.5-13.5 [facility] Comment on above: Performed By: #### C BC #### [facility] [address] [place] [address] Dr. Arianna Hamlin PLT 276 103/ul Normal 150-450 [facility] Comment on above: Performed By: #### C BC #### [facility] [address] [place] [address] Dr. Arianna Hamlin RBC 5.05 106/ul Normal 4.20-5.40 [facility] Comment on above: Performed By: #### C BC #### [facility] [address] [place] [address] Dr. Arianna Hamlin WBC 5.4 103/ul Normal 4.0-11.0 [facility] Comment on above: Performed By: #### C BC #### [facility] [address] [place], [place] [id number] Dr. Arianna Hamlin PROF 14(COMP METB)on 022 Albumin [Mass/Vol] 4.2 g/dL Normal 3.4-5.0 [facility] Comment on above: Performed By: #### B MP #### [facility] [address] [place] [address] Dr. Arianna Hamlin Albumin/Globulin [Mass ratio] 1.3 {ratio} Normal [facility] Comment on above: Performed By: #### B MP #### [facility] [address] [place] [address] Dr. Arianna Hamiln ALP [Catalytic activity/Vol] 92 U/L Normal 46-116 [facility] Comment on above: Performed By: #### B MP #### [facility] [address] [place] [address] Dr. Arianna Hamlin ALT [Catalytic activity/Vol] 25 U/L Normal 14-59 [facility] Comment on above: Performed By: #### B MP #### [facility] [address] [place] [address] Dr. Arianna Hamlin Anion gap [Moles/Vol] 10.4 mmol/L Normal [facility] Comment on above: Performed By: #### B MP #### [facility] [address] [place] [address] Dr. Arianna Hamlin AST [Catalytic activity/Vol] 20 U/L Normal 15-37 [facility] Comment on above: Performed By: #### B MP #### [facility] [address] [place] [address] Dr. Arianna Hamlin Bilirubin [Mass/Vol] 0.2 mg/dL Normal 0.2-1.0 [facility] Comment on above: Performed By: #### B MP #### [facility] [address] [place] [address] Dr. Arianna Hamlin Calcium [Mass/Vol] 9.0 mg/dL Normal 8.5-10.1 [facility] Comment on above: Performed By: #### B MP #### [facility] [address] [place] [address] Dr. Arianna Hamlin Chloride [Moles/Vol] 103 mmol/L Normal 98-107 [facility] Comment on above: Performed By: #### B MP #### [facility] [address] [address] [address] Arianna Hamlin CO2 [Moles/Vol] 29.7 mmol/L Normal 21.0-32.0 [facility] Comment on above: Performed By: #### B MP #### [facility] [address] [address] [address] Arianna Hamlin Creatinine [Mass/Vol] 0.87 mg/dL Normal 0.55-1.02 [facility] Comment on above: Performed By: #### B MP #### [facility] [address] [address] [address] Arianna Hamlin EGFR-AF [facility] >60 Normal >=60 [facility] Comment on above: Performed By: #### B MP #### [facility] [address] [address] [address] Arianna Hamlin EGFR-NON AF [facility] >60 Normal >=60 [facility] Comment on above: Performed By: #### B MP #### [facility] [address] [address] [address] Arianna Hamlin Globulin (S) [Mass/Vol] 3.3 g/dL Normal T [facility] Comment on above: Performed By: #### B MP #### [facility] [address] [address] [address] Arianna Hamlin Glucose [Mass/Vol] 99 mg/dL Normal 74-106 [facility] Comment on above: Performed By: #### B MP #### [facility] [address] [address] [address] Arianna Hamlin Potassium [Moles/Vol] 4.1 mmol/L Normal 3.5-5.1 [facility] Comment on above: Performed By: #### B MP #### [facility] [address] [place] [address] Dr. Arianna Hamlin Protein [Mass/Vol] 7.5 g/dL Normal 6.4-8.2 [facility] Comment on above: Performed By: #### B MP #### [facility] [address] [address] [address] Arianna Hamlin Sodium [Moles/Vol] 139 mmol/L Normal 136-145 [facility] Comment on above: Performed By: #### B MP #### [facility] [address] [address] [address] Arianna Hamlin Urea nitrogen [Mass/Vol] 11.0 mg/dL Normal 7.0-18.0 [facility] Comment on above: Performed By: #### B MP #### [facility] [address] [address] [address] Arianna Hamlin Urea nitrogen/Creatinine [Mass ratio] 12.6 mg/mg Normal [facility] Comment on above: Performed By: #### B MP #### [facility] [address] [address] [address] Arianna Hamlin Provider Letteron 09-06-2021 Provider Letter September 06, 2021 SIMIN CARO [address] [place] [id number] SIMIN CARO 1970 Dear Simin_ , We have been trying to reach you with no success. It is important that you return our call regarding your referral from Melinda Rodriguez upon receiving this letter. Also, at the time of your call, please provide us with your correct phone number. . Thank you for your prompt attention to this matter. Sincerely, General Surgery [phone] Normal [facility] Physician Referralon 022 Physician Referral [phone] 1 [id number] Normal [facility] Vital Signs Date Time Vital Sign Value Performing Clinician Facility 09-16-2024 10:50-0500 Body temperature 97.4 [degF] [facility] 09-16-2024 10:50-0500 Diastolic blood pressure 83 mm[Hg] [facility] 09-16-2024 10:50-0500 Heart rate 70 /min [facility] 09-16-2024 10:50-0500 Respiratory rate 12 /min [facility] 09-16-2024 10:50-0500 SaO2% (BldA) [Mass fraction] 100 % [facility] 09-16-2024 10:50-0500 Systolic blood pressure 140 mm[Hg] [facility] 09-16-2024 10:30-0500 Inhaled oxygen flow rate 2 L/min [facility] 09-16-2024 06:00-0500 Body height 158.75 cm [facility] 09-16-2024 06:00-0500 Body weight 102 kg [facility] 09-01-2024 11:02-0500 Body height 160.02 cm [facility] 09-01-2024 11:02-0500 Body mass index (BMI) [Ratio] 37.7 kg/m2 [facility] 09-01-2024 11:02-0500 Body weight 96.61 kg [facility] 02-03-2022 12:15-0400 Body height 160.02 cm Grant Alvarenga Other [facility] Other 02-03-2022 12:15-0400 Body mass index (BMI) [Ratio] 36.13 kg/m2 Grant Nicole Other [facility] [employer] Other 02-03-2022 12:15-0400 Body weight 92.53 kg Grant Nicole Other [facility] Other 01-27-2022 09:00-0400 Body height 160.02 cm Grant Nicole Other [facility] Other 01-27-2022 09:00-0400 Body mass index (BMI) [Ratio] 36.13 kg/m2 Grant Nicole Other [facility] Other 01-27-2022 09:00-0400 Body weight 92.53 kg Grant Nicole Other [facility] Other 10-31-2021 16:30-0400 Body height 160.02 cm Grant Alvarenga Other [facility] Other 10-31-2021 16:30-0400 Body mass index (BMI) [Ratio] 37.02 kg/m2 Grant Alvarenga Other [facility] Other 10-31-2021 16:30-0400 Body weight 94.8 kg Grant Alvarenga Other [facility] Other Encounters Encounter Date Encounter Type Care Provider Facility Start: 12-10-2024 End: 12-10-2024 ambulatory Sarah Montgomery [employer] COMMENTATOR[employer]C Work Phone: [facility] Work Phone: Start: 12-10-2024 End: 12-10-2024 Patient encounter procedure Sarah Montgomery NEWS COMMENTATOR-C Work Phone: [facility] Work Phone: Start: 10-29-2024 End: 10-29-2024 ambulatory NON STAFF [facility] Work Phone: Start: 10-29-2024 End: 10-29-2024 Patient encounter procedure [facility] Work Phone: Start: 10-01-2024 End: 10-01-2024 ambulatory NON STAFF [facility] Work Phone: Start: 10-01-2024 End: 10-01-2024 Patient encounter procedure [facility] Work Phone: Start: 09-16-2024 End: 09-16-2024 Admission to same day surgery center [facility] [place] Start: 09-16-2024 End: 09-16-2024 ambulatory NON STAFF [facility] Work Phone: Start: 09-15-2024 Non-patient / [facility]-visit [facility] Work Phone: Start: 09-10-2024 End: 09-10-2024 Patient encounter procedure [facility] Work Phone: Start: 09-10-2024 End: 09-10-2024 Discharged [facility] [place] Start: 09-10-2024 Registered [facility] [place] Start: 09-10-2024 End: 09-10-2024 ambulatory NON STAFF [facility] Work Phone: Start: 09-10-2024 Encounter for other preprocedural examination Grant Parada [facility] Start: 09-04-2024 End: 09-04-2024 Patient encounter procedure [facility] Work Phone: Start: 09-04-2024 End: 09-04-2024 ambulatory NON STAFF [facility] Work Phone: Start: 09-04-2024 Encounter for preprocedural laboratory examination Grant Parada [facility] Start: 09-01-2024 End: 09-01-2024 ambulatory NON STAFF [facility] Work Phone: Start: 09-01-2024 End: 09-01-2024 Patient encounter procedure [facility] Work Phone: Start: 01-07-2024 ambulatory NON STAFF Facility:[facility] Start: 12-19-2022 End: 12-20-2022 ambulatory SARAH MONTGOMERY Facility:[facility] Start: 11-14-2022 ambulatory SARAH MONTGOMERY Facility: [facility] Start: 11-08-2022 End: 11-09-2022 [...] Encounter for preprocedural laboratory examination LOS VENTURA [facility] Start: 08-10-2022 ambulatory SARAH VALENTINA Facility: [facility] Start: 08-08-2022 End: 08-09-2022 ambulatory SARAH VALENTINA Facility:[facility] Start: 08-08-2022 End: 08-09-2022 Encounter for preprocedural laboratory examination SARAH VALENTINA Facility:[facility]1 Start: 07-05-2022 End: 07-05-2022 ambulatory SARAH VALENTINA Facility:[facility] Start: 07-01-2022 End: 07-02-2022 ambulatory SARAH VALENTINA Facility:[facility]1 Start: 06-28-2022 End: 06-29-2022 ambulatory SARAH VALENTINA Facility:[facility] Start: 06-20-2022 End: 06-21-2022 ambulatory SARAH VALENTINA Facility:[facility] Start: 06-14-2022 End: 06-15-2022 ambulatory SARAH VALENTINA Facility:[facility] Start: 05-28-2022 ambulatory SARAH VALENTINA Facility: [facility] Start: 05-17-2022 End: 05-17-2022 ambulatory SARAH VALENTINA Facility:[facility] Start: 05-15-2022 End: 05-16-2022 ambulatory SARAH VALENTINA Facility:[facility] Start: 05-08-2022 End: 05-09-2022 ambulatory SARAH VALENTINA Facility:[facility] Start: 03-25-2022 ambulatory SARAH VALENTINA Facility: [facility] Start: 02-27-2022 ambulatory SARAH VALENTINA Facility: [facility] Start: 02-03-2022 End: 02-03-2022 ambulatory Grant Alvarenga Other [facility] Other Start: 02-03-2022 Postop follow up vis it related to original px Grant Alvarenga [facility] [place] Start: 01-27-2022 End: 01-27-2022 ambulatory Grant Alvarenga Other [facility] Other Start: 01-27-2022 Office outpatient vi sit 15 minutes Grant Alvarenga [facility] Start: 01-24-2022 End: 01-25-2022 ambulatory GRANT ALVARENGA Facility:[facility]1 Start: 10-31-2021 End: 10-31-2021 ambulatory Grant Alvarenga Other [facility] Other Start: 10-31-2021 Office outpatient ne w 45 minutes Grant Alvarenga [facility] Procedures Date Procedure Procedure Detail Performing Clinician Start: 09-16-2024 X-ray of left knee, two views Start: 09-16-2024 Total replacement of left knee joint Start: 09-01-2024 X-ray of left knee, three views Plan of Treatment Date Care Activity Detail Author Start: 09-16-2024 X-ray of left knee, two views XR knee LT 2V [facility] Start: 09-16-2024 XR Knee - left 2 Views [facility] Start: 09-16-2024 End: 09-16-2024 [facility] Start: 09-15-2024 [facility] Start: 09-15-2024 Hospital admission [facility] Start: 09-15-2024 Physical therapy procedure [facility] Start: 09-15-2024 Referral to occupati onal therapist [facility] Start: 09-01-2024 X-ray of left knee, three views XR knee LT 3V - NOT FOR ER USE [facility] Start: 09-01-2024 XR Knee - left 3 Views [facility] Anion gap measurement [facility] Basophils [#/volume] in Blood by Automated count [facility] Basophils/100 leukoc ytes in Blood by Automated count [facility] Eosinophils/100 leuk ocytes in Blood by Automated count [facility] Erythrocyte distribu tion width [Ratio] by Automated count [facility] Erythrocytes [#/volu me] in Blood [facility] Hematocrit [Volume Fraction] of Blood [facility] Hemoglobin [Mass/vol ume] in Blood [facility] Leukocytes [#/volume ] corrected for nucleated erythrocytes in Blood by Automated coun [facility] Leukocytes [#/volume ] in Blood [facility] Lymphocytes [#/volum e] in Blood by Automated count [facility] Lymphocytes/100 leuk ocytes in Blood by Automated count [facility] MCH [Entitic mass] b y Automated count [facility] MCHC [Mass/volume] b y Automated count [facility] MCV [Entitic volume] by Automated count [facility] Monocytes [#/volume] in Blood by Automated count [facility] Monocytes/100 leukoc ytes in Blood by Automated count [facility] Neutrophils [#/volum e] in Blood by Automated count [facility] Neutrophils/100 leuk ocytes in Blood by Automated count [facility] Nucleated erythrocyt es [Presence] in Blood by Automated count [facility] Patient Education Know your Meds [facility] Work Phone: Patient referral [facility] Work Phone: Platelet mean volume [Entitic volume] in Blood by Automated count [facility] Platelets [#/volume] in Blood [facility] Immunizations Immunization Date Immunization Notes Care Provider Fa [facility] 05-16-2021 influenza, injectabl e, quadrivalent, preservative free Grant Alvarenga Other [facility] 01-01-2021 COVID-19 Vaccine Pancho ssen - Documentation Purposes Only Grant Alvarenga Other [facility] Payers Date Payer Category Payer Unknown [id number] 2024 Unknown [id number] 1970 Unknown [id number] 2.16.84 0.1.242138.3.579.2.593 1970 Unknown [id number] 2.16.84 0.1.101139.3.579.2.593 1970 Unknown [id number] 2.16.84 0.1.155397.3.579.2.593 1970 Unknown [id number] 2.16.84 0.1.134169.3.579.2.593 1970 Unknown [id number] 2.16.84 0.1.814636.3.579.2.593 1970 Unknown [id number] 2.16.84 0.1.539313.3.579.2.593 1970 Unknown [id number] 2.16.84 0.1.478687.3.579.2.593 1970 Unknown [id number] 2.16.84 0.1.315583.3.579.2.593 1970 Unknown [id number] 2.16.84 0.1.661102.3.579.2.593 1970 Unknown [id number] 2.16.84 0.1.523518.3.579.2.593 1970 Unknown [id number] 2.16.84 0.1.279353.3.579.2.593 1970 Unknown [id number] 2.16.84 0.1.613088.3.579.2.593 1970 Unknown [id number] 2.16.84 0.1.378201.3.579.2.593 1970 Unknown [id number] 2.16.84 0.1.605775.3.579.2.593 1970 Unknown [id number] 2.16.84 0.1.454699.3.579.2.593 1970 Unknown [id number] 2.16.84 0.1.646340.3.579.2.593 1970 Unknown [id number] 2.16.84 0.1.573162.3.579.2.593 1970 Unknown [id number] 2.16.84 0.1.575975.3.579.2.593 1970 Unknown [id number] 2.16.84 0.1.499800.3.579.2.593 1970 Unknown [id number] 2.16.84 0.1.884433.3.579.2.593 1970 Unknown [id number] 2.16.84 0.1.971263.3.579.2.593 1970 Unknown [id number] 2.16.84 0.1.364678.3.579.2.593 1959 [facility] [id number] 2.16.840.1.315509.19 1959 Self-pay Unknown [id number] 2.16.8 40.1.137849.3.579.2.531 Unknown [id number] 2.16.8 40.1.557117.3.579.2.531 Unknown [id number] 2.16.8 40.1.985393.3.579.2.531 Unknown [id number] 2.16.8 40.1.423301.3.579.2.531 Unknown [id number] 2.16.8 40.1.380433.3.579.2.531 Social History Date Type Detail Facility Sex Assigned At [facility] Other Tobacco smoking stat [facility] Unknown if ever smoked [facility] Work Phone: Start: 09-01-2024 End: 12-10-2024 Sex Female (finding) [facility] Start: 1970 Sex Assigned At Female F [facility] Start: 09-04-2024 End: 09-16-2024 Tobacco smoking status WAIS Ex-smoker (finding) [facility] Medical Equipment Procedure Code Equipment Code Equipment Origin al Text Equipment Identifier Dates Arthroplasty, knee, total, minimally invasive Tibial insert ([id number] [facility] Start: 09-16-2024 Arthroplasty, knee, total, minimally invasive Coated knee femur prosthesis ()[id number] FDA Start: 09-16-2024 Arthroplasty, knee, total, minimally invasive Coated knee tibia prosthesis ()[id number] FDA Start: 09-16-2024 Goals Date Patient Goal Desired Activity /State Clinical Notes 10-31-2021 to 10-01-2024 Note Date & Type Note Facility 10-01-2024 Evaluation note Diagnosis Onset Date Resolution Degenerative joint disease of left knee acute October 01, 2024 10:49am Status post total left knee replacement acute October 01, 2024 10:49am Degenerative joint disease of left knee acute October 29, 2024 11:12am Status post total left knee replacement acute October 29, 2024 11:12am Degenerative joint disease of left knee acute December 10, 1:43pm Status post total left knee replacement acute December 10, 2024 1:43pm Trigger finger, left middle finger acute December 10, 2024 1 :43pm [facility] Work Phone: 1(809) 874-595702-03-2025 Evaluation note* Diagnosis Onset Date Resolution Status Admit Date Degenerative joint disease o f left knee acute September 01 10:34am [facility] Work Phone: 1(354) 437-115702-03-2025 Evaluation note* Diagnosis Onset Date Resolution Status Admit Date Degenerative joint disease o f left knee acute September 01 10:34am Degenerative joint disease o f left knee acute September 10 025 10:08am [facility] Work Phone: 1(209) 513-340502-03-2025 Evaluation note* Diagnosis Onset Date Resolution Status Admit Date Degenerative joint disease o f left knee acute September 01 10:34am Degenerative joint disease o f left knee acute September 10 025 10:08am Degenerative joint disease o f left knee acute October 01, 2024 10:49am Status post total left knee replacement acute October 01, 2024 10:49am [facility] Work Phone: 1([phone]) 887-322302-03-2025 Evaluation note* Diagnosis Onset Date Resolution Status Admit Date Degenerative joint disease o f left knee acute September 01 10:34am Degenerative joint disease o f left knee acute September 10 10:08am Degenerative joint disease o f left knee acute October 01, 2024 10:49am Status post total left knee replacement acute October 01, 2024 10:49am Degenerative joint disease o f left knee acute October 29, 2024 11:12am Status post total left knee replacement acute October 29, 2024 11:12am [facility] Work Phone: 1(427) 908-106205-23-2023 NotePROCEDURE: XR FOOT RT MIN 3 VIEWS DATE: 12/19/2022 10:05 AM [...] Electronically authenticated by: LARISSA CHOI Date: 2022-12-19 11:40[id number] NotePROCEDURE: XR FOOT RT MIN 3 VIEWS HISTORY: [...] Electronically authenticated by: TERI KAY Date: 2022-10-19 08:47[facility]03-02-2023 NotePROCEDURE: XR FOOT RT MIN 3 VIEWS COMPARISON: 09/07/2022 HISTORY: Pain in right foot FINDINGS: BONES:Able postsurgical changes with dorsal fusion of the midfoot hindfoot subtalar fusion and talonavicular fusion. Lucency in the distal tibia from prior bone graft harvesting. SOFT TISSUES:Moderate soft tissue swelling EFFUSION:None visible. OTHER: Interval removal of surgical skin nemo. IMPRESSION: Stable postsurgical changes Electronically authenticated by: BARBARA HERNANDEZ Date: 2022-09-28 16:30[facility]02-10-2023 NotePROCEDURE: XR FOOT RT MIN 3 VIEWS HISTORY: Pain COMPARISON: XR [...] Electronically authenticated by: TERI KAY Date: 2022-09-08 07:03[facility]01-17-2023 NotePROCEDURE: XR FOOT RT MIN 3 VIEWS, XR ANKLE RT MIN [...] Electronically authenticated by: BARBARA HERNANDEZ Date: 2022-08-15 08:58[facility]01-17-2023 NotePROCEDURE: XR FOOT RT MIN 3 VIEWS, XR ANKLE RT MIN [...] Electronically authenticated by: BARBARA HERNANDEZ Date: 2022-08-15 08:58[facility]11-17-2022 NotePROCEDURE: XR FOOT RT MIN 3 VIEWS COMPARISON: 09/08/2021 HISTORY: Pain in right foot FINDINGS: BONES:No acute fracture or dislocation. Stable yfxf-jn-ibjynhwk degenerative change with joint space narrowing marginal osteophyte formation most significant in the midfoot SOFT TISSUES:Negative. No visible soft tissue swelling. EFFUSION:None visible. OTHER: Negative. IMPRESSION: Stable degenerative changes Electronically authenticated by: BARBARA HERNANDEZ Date: 2022-06-15 08:48[facility]07-08-2022 Evaluation note* Encounter Date Diagnosis Assessment Notes Treatment Notes Treatment Clinical Notes Jan, Carpal tunnel syndrome of left [...] states (ICD-10 - Z98.890) Jan, Trigger middle finge r of right hand (ICD-10 - M65.331) Currently resolved. Continue to monitor [facility] 07-01-2022 Evaluation note* Encounter Date Diagnosis [...] as documented in the electronic medical record. [facility] 06-30-2022 History general Narrative - Reported* Type Description Date Medical History Hypertension Medical History chronic depression Medical History hearing loss Surgical History hysterectomy-partial 2017 Surgical History left carpal tunnel release by Bibi Alvarenga 01/26/2022 [facility] 04-04-2022 Evaluation note* Encounter Date Diagnosis [...] of pinch strength in approximately 6 weeks, alarm security or surveillance monitor strength recovery at about 12 weeks, and [...] done prior to surgical procedure to limit jacquie-operative risks. I have discussed the planned procedure, how and who performs the procedure, and the personnel involved. Cardiovascular, pulmonary, and other life threatening episodes can occur during surgery although there is a low risk of these happening. Surgical risks including bleeding, neurovascular injury, wound closure problems and infection were discussed. Jacquie-operative risks including infection, bleeding, wound healing problems, [...] poor healing. 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 I [...] as documented in the electronic medical record. [facility] Other Evaluation note* Diagnosis Onset Date Resolution Status Admit Date Degenerative joint disease o f left knee acute September 01 10:34am [facility] Work Phone: History general Narrative - Reported* Type Description Date Medical History Hypertension Medical History chronic depression Medical History hearing loss Surgical History hysterectomy-partial 2016 [facility] Discharge instructions Additional Instructions Joint Replacement Discharge Instructions: Your safety during your recovery process is important to us. Please seek immediate emergency care if you have sudden chest pain or shortness of breath. Additionally, please call our office at [phone] should any of the following occur: wound bleeding or an increase in bleeding, increased swelling, redness around the incision, fever over 101 F, excessive vomiting, nose bleeds, or bloody stool. Discharge Medications (scheduled): Aspirin 81 mg twice daily should be taken starting the morning after surgery. You should take this as prescribed until your prescription is completed. This is to provide anticoagulation to help prevent blood clots. Doxycycline tablet by mouth twice daily for 7 days. Take with food. Begin the morning after surgery. This is for prophylaxis against infection Tylenol (acetaminophen) 500mg tablet. Take 2 tablets 3 times (every 8 hours) a day for the first 2 weeks after your surgery. You may begin this the day of your surgery. *If you have a patch behind your ear remove it the morning after surgery, discard, and thoroughly wash your hands. Discharge Medications (as needed): Tramadol (Ultram) 50mg tablet. Take 1 tablet by mouth every 6 hours as needed for pain. Do not take at the same time as oxycodone but rather alternate these if needed. Take with food. Begin the night of surgery. Take around the clock for 24 hours after surgery and then utilize if necessary. Oxycodone 5mg tablet. Take 1 tablet by mouth every 4 hours as needed for pain. If pain unrelenting 30 minutes after taking 1 tablet, then take another 1 tablet. Do not take at the same time as Tramadol (Ultram). Take with food. Begin the night of surgery. Take around the clock for 24 hours after surgery and then utilize if necessary. Discharge Instructions: BE SURE YOU HAVE READ THE BOOKLET YOU RECEIVED IN THE OFFICE. Home Health: Home health is a valuable partner in the joint replacement process; they will be your first step to your road of recovery. A therapist will see you the day after your surgery; they will be at your home before noon. They will see you the first three days after surgery and continue working with you until I see you in the office for your 2-week post-op appointment. Follow their instructions. Exercises are to be done several times a day, including the days the therapist does not come to your house! Wound Care: Your surgical incision may be covered with a few different dressings. Your home health physical therapist can remove the Cuate wrap from your leg the first day after surgery, but they will leave the surgical dressing over the incision. Mepilex-This gloria foam dressing that will be over the surgical site and should stay in place for 1 week after surgery. This dressing helps with early wound healing and protects your surgical incision. This is a waterproof dressing that may get wet in the shower starting the day after surgery. You may apply ice over the dressing as needed. 7 days after surgery you may take the dressing off by peeling up an edge and then taking off like a Band-Aid. Sometimes you can have some redness or blistering around the dressing which can be normal. Bruising around the surgical site is normal in the acute postoperative phase. DO NOT take a bath, enter a pool, finley/pond, or ocean until we discuss this at your post-op appointments. Prevena-This is a negative pressure wound therapy device with a collection container for any drainage. If this becomes completely full, call your therapist to discuss changing the collection container. This device also has a 14-day battery. Your home health physical therapist will remove the dressing 14 days after your surgery; it will be removed prior to your initial follow up appointment. Do not place any ointments, creams, or lotions around your wound or on the dressing. Avoid getting outside on hot days; excessive sweating can increase the risk of wound infection. When you do bathe, allow soapy water to run over the dressing site, but do not scrub the device or the surrounding skin. DO NOT get the device wet! Pat the dressing site dry with a towel after you shower. DO NOT take a bath, enter a pool, finley/pond, or ocean until we discuss this at your post-op appointments. What to expect: SWELLING: Ice frequently, a minimum of 4 times a day for 20 minutes at a time for the first 2-3 weeks after surgery, especially after doing your exercises. While icing, elevate your foot above the level of your heart with several pillows under your ankle. DO NOT put pillows under your knee. (KNEE REPLACEMENT ONLY) Avoid prolonged periods of sitting over the first 7 to 10 days after surgery. We recommend that you not sit for more than 45 to 60 minutes at a time. You should get up and move around or lie down and elevate your leg. BRUISING: You will have bruising to some degree; possibly the thigh, calf, ankle, foot, and in some cases the genitalia. Do not be alarmed. The bruising will eventually go away on its own as the body reabsorbs the blood. BLISTERS: Some patients may develop blisters around the knee/hip and/or the incision. Although they can be alarming in appearance, they pose no significant risk to your joint replacement. o Leave the blisters alone and allow them to heal on their own. NUMBNESS: Usually normal around the incision. For knee replacements, the outside of the knee may be involved as well. The area of numbness may shrink over time or it could last forever. For hip replacements, you may notice numbness around the surgical incision. The area of numbness may shrink over time or it could last forever. LATISHA hose (stockinette): Wear them for 4 weeks on the operative side and 2 weeks on the nonoperative side. Try to wear these as 24/ as possible to help decrease swelling. Weight Bearing, Walkers, and Canes: You are weightbearing as tolerated. Do not attempt to walk without your walker and assistance until the therapist checks you the following day after surgery and gives you further instruction. Follow all preoperative precautions as instructed by therapy. Typically, you will start out on a walker, then progress to a cane, and eventually walk without any device. Some of our patients do this within 2 weeks of surgery, while others can take 6 weeks. Pain Medications: You may experience significant pain. Our goal is to make your pain manageable (not absent, since this is usually not realistic) and to allow you to progress with your therapy for your hip or knee. Take your pain medication scheduled for the first 24 hours, then take it as needed. Always take your pain medication with food to decrease nausea and vomiting. Be sure to take stool softeners and/or laxatives as directed. You may take asag-zvc-danheqi Benadryl if itching occurs without a rash or hives. Icing and elevation will help relieve pain as well, do not underestimate the power of ice and elevation. We do recommend that you stop taking narcotic pain medications by 4-6 weeks after surgery and if necessary, continue to use anti-inflammatory medications such as Mobic (meloxicam), Celebrex (celecoxib), or an nyax-cue-dyjlsce medication (Aleve, Motrin, Ibuprofen, etc). Driving an automobile: You must be off all narcotic pain medications. If your right leg is involved, that is your braking leg. Your physical therapist needs to help you determine that you can actively and firmly hit the brake and sustain it as this could be a life or situation for you or someone else. You will not be cleared to drive by me or anyone else. It is up to you to know when you feel safe to drive. We do recommend waiting until your first follow up and utilizing an empty parking lot to practice and ensure you are able to slam on the brakes if necessary during an emergency. Low Grade Fever (less than 101 F): Low-grade fevers can be treated, but make sure you do not exceed the daily limit of Tylenol. The daily limit on Tylenol (acetaminophen) is 3000 mg in a 24-hour period. If you have procedures done after your joint replacement: Dental procedures (including routine cleaning), prostate surgery, colonoscopy, and other invasive procedures could increase your risk for a total joint infection. During a postoperative visit, be sure to discuss the use of prophylactic antibiotic therapy prior to and sometimes after these invasive procedures. The decision to utilize antibiotics before and/or after these invasive procedures is a shared decision process between you and myself. Constipation: If you develop constipation in spite of taking stool softeners and/or laxatives, follow the protocol below: Day 2 of constipation if no results, use a Dulcolax suppository Day 3 of constipation if no results, use a fleet's enema. If no results by the afternoon, notify our office. Bladder Habits: If you have difficulty urinating or are unable to urinate within 12 hours after arriving home following your surgery, please notify our office immediately. Expectations for Pain Relief after Joint Replacement: Patients predictably improve for up to a year after a hip or knee replacement. It is normal for you to still have some pain in your hip or knee for as much as 3 to 9 months after surgery. The pain relief will come, but you should not expect great relief of pain in less than this time. High demand activities (such as going up and down stairs) frequently take 3 to 9 months before patients feel comfortable doing them. It is permissible to go up and down stairs whenever you can safely navigate them, but it will take much longer to do them normally and with great confidence. Questions or Problems: If you have any questions, problems, or confusion about your recovery after your hip or knee replacement, please feel free to call our office at [phone]. You are a priority of ours and we will not be upset with you if you call. We would much rather you call to confirm aspects of your recovery process as opposed to possibly hindering your recovery with inappropriate care. We are committed to providing you with the best care possible. Dr. Grant Alvarenga [facility] [address] [place] [address] [email or web address] Work Phone: Summary Purpose Family History Relationship Condition Age at Onset Recorded Date/T holley father Unknown Relationship Condition Age at Onset Recorded Date/T holley father Unknown Myocardial infarction Unknown Malignant neoplasm of bone Unknown mother Heart disease Unknown Fibromyalgia Unknown Advance Directives Advance Directive Response Recorded Date/ Time Advance Directives No January 27 9:20am Advance Directive Response Recorded Date/ Time Advance Directives No January 27 10:20am Chief Complaint and Reason for Visit Chief Complaint Admit Date OP/NEWS COMMENTATOR LEFT KNEE PAIN NX September 01 10:34am M25.562 - Pain in left knee August 10:38am Reason for Visit Admit Date Degenerative joint disease of left knee September 01, 2024 10:34am Chief Complaint Admit Date OP/NEWS COMMENTATOR LEFT KNEE PAIN NX September 01 10:34am M25.562 - Pain in left knee August 10:38am Knee Pain September 04, 2024 1 1:21am Chief Complaint Admit Date OP/NEWS COMMENTATOR LEFT KNEE PAIN NX September 01 10:34am M25.562 - Pain in left knee August 10:38am Knee Pain September 04, 2024 1 1:21am Pre-Op LTK September 10, 2024 9:26am H & P LEFT TOTAL KNEE ARTHROPLASTY September 10, 2024 10:08am Reason for Visit Admit Date Degenerative joint disease of left knee September 01, 2024 10:34am Degenerative joint disease of left knee September 10, 2024 10:08am Chief Complaint Admit Date OP/NEWS COMMENTATOR LEFT KNEE PAIN NX September 01 10:34am M25.562 - Pain in left knee August 10:38am Knee Pain September 04, 2024 1 1:21am Pre-Op LTK September 10, 2024 9:26am H & P LEFT TOTAL KNEE ARTHROPLASTY September 10, 2024 10:08am Knee Pain September 15, 2024 4:48pm Knee Pain September 16, 2024 5:43am Chief Complaint Admit Date OP/NEWS COMMENTATOR LEFT KNEE PAIN NX September 01 10:34am M25.562 - Pain in left knee August 10:38am Knee Pain September 04, 2024 1 1:21am Pre-Op LTK September 10, 2024 9:26am H & P LEFT TOTAL KNEE ARTHROPLASTY September 10, 2024 10:08am Knee Pain September 15, 2024 4:48pm Knee Pain September 16, 2024 5:43am 2 weeks post op October 01, 2024 10:4 9am Reason for Visit Admit Date Degenerative joint disease of left knee September 01, 2024 10:34am Degenerative joint disease of left knee September 10, 2024 10:08am Degenerative joint disease of left knee October 01, 2024 10:49am Status post total left knee replacement October 01, 2024 10:49am Chief Complaint Admit Date OP/NEWS COMMENTATOR LEFT KNEE PAIN NX September 01 10:34am M25.562 - Pain in left knee August 10:38am Knee Pain September 04, 2024 1 1:21am Pre-Op LTK September 10, 2024 9:26am H & P LEFT TOTAL KNEE ARTHROPLASTY September 10, 2024 10:08am Knee Pain September 15, 2024 4:48pm Knee Pain September 16, 2024 5:43am 2 weeks post op October 01, 2024 10:4 9am 4 WEEKS October 29, 2024 11:1 2am Reason for Visit Admit Date Degenerative joint disease of left knee September 01, 2024 10:34am Degenerative joint disease of left knee September 10, 2024 10:08am Degenerative joint disease of left knee October 01, 2024 10:49am Status post total left knee replacement October 01, 2024 10:49am Degenerative joint disease of left knee October 29, 2024 11:12am Status post total left knee replacement October 29, 2024 11:12am Chief Complaint Admit Date Knee Pain September 15, 2024 4:48pm Knee Pain September 16, 2024 5:43am 2 weeks post op October 01, 2024 10:4 9am 4 WEEKS October 29, 2024 11:1 2am 6 WEEKS December 10, 2024 1:43p m Reason for Visit Admit Date Degenerative joint disease of left knee October 01, 2024 10:49am Status post total left knee replacement October 01, 2024 10:49am Degenerative joint disease of left knee October 29, 2024 11:12am Status post total left knee replacement October 29, 2024 11:12am Degenerative joint disease of left knee December 10, 2024 1:43pm Status post total left knee replacement December 10, 2024 1:43pm Trigger finger, left middle finger November 272024 1:43pm Additional Source Comments REASON FOR VISIT (unrecogniz ed section and content) Bilateral Carpal TunnelRight Hip PainRecheck Left Wrist INFORMATION SOURCE (unrecogn ized section and content) DATE CREATED AUTHOR 02/17/2022 [facility] DATE CREATED AUTHOR AUTHOR'S ORGANIZ ATION 01/05/2023 [facility] DATE CREATED AUTHOR AUTHOR'S ORGANIZ ATION 10/18/2024 [facility] Care Teams (unrecognized sec tion and content) Team Status: Active Member Role Status Dates DAVY Mtz Primary Care Provider Active Team Status: Active Member Role Status Dates Grant Alvarenga DO Attending Provider, Other Provider Active Start: September 15, 2024 DAVY Mtz Primary Care Provider Active Start: September 15, 2024 Team Status: Inactive Member Role Status Dates Grant Alvarenga DO Attending Provider Active S tart: September 16, 2024 End: September 16, 2024 DAVY Mtz Primary Care Provider Active Start: September 16, 2024 End: September 16, 2024 Team Status: Inactive Member Role Status Dates Grant Alvarenga DO Attending Provider Active S tart: October 01, 2024 End: October 01, 2024 Sarah Montgomery NEWS COMMENTATOR-C Primary Care Provider Active Start: October 01, 2024 End: October 01, 2024 Team Status: Inactive Member Role Status Dates Sarah Montgomery NEWS COMMENTATOR-C Primary Care Provider Active Start: October 29, 2024 End: October 29, 2024 Grant Alvarenga DO Attending Provider Active S tart: October 29, 2024 End: October 29, 2024 Team Status: Inactive Member Role Status Dates Sarah Montgomery NEWS COMMENTATOR-C Primary Care Provider Active Start: December 10, 2024 End: December 10, 2024 Grant Alvarenga DO Attending Provider Active S tart: December 10, 2024 End: December 10, 2024 Team Status: Active Member Role Status Dates Dick Arroyo MD Primary Care Provider Active Team Status: Inactive Member Role Status Dates NON STAFF Primary Care Provider Active Start: September 01, 2024 End: September 01, 2024 Grant Alvarenga DO Attending Provider Active S tart: September 01, 2024 End: September 01, 2024 Team Status: Active Member Role Status Dates NON STAFF Primary Care Provider Active Start: September 01, 2024 Grant Alvarenga DO Attending Provider Active S tart: September 01, 2024 Team Status: Active Member Role Status Dates Sarah Montgomery NEWS COMMENTATOR-C Primary Care Provider Active Team Status: Inactive Member Role Status Dates Grant Alvarenga DO Attending Provider Active S tart: September 04, 2024 End: September 04, 2024 Sarah Montgomery NEWS COMMENTATOR-C Primary Care Provider Active Start: September 04, 2024 End: September 04, 2024 Team Status: Active Member Role Status Dates Grant Alvarenga DO Attending Provider Active S tart: September 10, 2024 Sarah Montgomery NEWS COMMENTATOR-C Primary Care Provider Active Start: September 10, 2024 Team Status: Inactive Member Role Status Dates Grant Alvarenga DO Attending Provider Active S tart: September 10, 2024 End: September 10, 2024 Sarah Montgomery NEWS COMMENTATOR-C Primary Care Provider Active Start: September 10, 2024 End: September 10, 2024 Team Status: Active Member Role Status Dates Grant Alvarenga DO Attending Provider, Other Provider Active Start: September 15, 2024 Sarah Montgomery NP-C Primary Care Provider Active Start: September 15, 2024 Team Status: Inactive Member Role Status Dates Grant Alvarenga DO Attending Provider Active S tart: September 16, 2024 End: September 16, 2024 Sarah Montgomery NP-C Primary Care Provider Active Start: September 16, 2024 End: September 16, 2024 Team Status: Inactive Member Role Status Dates Grant Alvarenga DO Attending Provider Active S tart: October 01, 2024 End: October 01, 2024 Sarah Montgomery NP-C Primary Care Provider Active Start: October 01, 2024 End: October 01, 2024 Team Status: Inactive Member Role Status Dates Sarah Montgomery NP-C Primary Care Provider Active Start: October 29, 2024 End: October 29, 2024 Grant Alvarenga DO Attending Provider Active S tart: October 29, 2024 End: October 29, 2024 Team Status: Inactive Member Role Status Dates Sarah Montgomery NP-C Primary Care Provider Active Start: December 10, 2024 End: December 10, 2024 Grant Alvarenga DO Attending Provider Active S tart: December 10, 2024 End: December 10, 2024 Goals (unrecognized section and content) Goals may be documented in a n alternate section FOR RECORDS PERTAINING TO PATIENTS WHO ARE [...] BE BASED ON THE PRIMARY CLINICAL RECORDS. [facility]. provides no warranty or guarantee of the accuracy or completeness of information in this document.
== END 2025-03-10 21:01 | disposition home or self-care (01) ==
LOC: SLEEP 21:01
PROVIDERS: PCP Nurse Practitioner Family; Visit Provider Nurse Practitioner Family
DX: G47.33 Obstructive sleep apnea (adult) (pediatric) (principal)
CPT/HCPCS: 95811

== ENCOUNTER 2025-05-27 09:06 | Outpatient (OUT) | payer BC, SELFPAY ==
--- OUTSIDE RECORDS SUMMARY | 2025-05-27 09:08 | XMS_ITS | Clinical Summary ---
Author Organization [facility] tem Address [id number] [address] [place] [address] Care Team Providers Care Associate Vice President Name Role Phone Rolanda Sarah Layton ELECTRICAL TECHNICIAN INSTRUCTOR-RUBBER STAMP ASSEMBLER Primary Care Provider Allergies Active AllergyReactionsCriticalityNoted DateCommentsAspirinNausea And Vomiting High05/08/20224233VvaxoQpyaRtcd10/10/2022 Medications MedicationSigDispense QuantityRefillsLast FilledStart DateEnd DateStatus meloxicam (MOBIC) 15 mg tablet Take 15 mg by mouth in the morning.03/06/2022ctive lisinopriL (PRINIVIL,ZESTRIL) 20 mg tablet Take 20 mg by mouth in the morning.03/06/2022ctive venlafaxine XR (EFFEXOR-XR) 150 mg 24 hr capsule Take 150 mg by mouth in the morning.05/06/2022ctive venlafaxine XR (EFFEXOR XR) 75 mg 24 hr capsule Take 75 mg by mouth in the morning.05/06/2022ctive cholecalciferol (VITAMIN D3) 50,000 units capsule Take 50,000 Units by mouth once a week.05/06/2022ctive amitriptyline (ELAVIL) 100 mg tablet Take 1 tablet (100 mg total) by mouth nightly.05/06/2022ctive Active Problems ProblemNoted DateDiagnosed DynxWofrot02/31/2022Hearing loss05/29/2022 Lqejgamevevf13/31/2022 Family History Medical HistoryRelationNameCommentsCancerFatherboneArthritisMotherFibromyalgia MotherHeart diseaseMotherNeuropathyMotherRelationNameStatusCommentsFather DeceasedMotherAlive Social History Tobacco UseTypesPacks/DayYears UsedDateSmoking Tobacco: FormerCigarettes Smokeless Tobacco: Never Tobacco Cessation:Counseling Given: Not Answered Alcohol UseStandard Drinks/WeekCommentsNot Currently0 (1 standard drink = 0.6 oz pure alcohol)CommentsNoSex and Gender InformationValueDate RecordedSex Assigned at BirthNot on fileLegal OgcIbodra31/28/2022 9:04 AM EDTGender Identity Not on fileSexual OrientationNot on file Last Filed Vital Signs Vital SignReadingTime TakenCommentsBlood Cmcqsoeb627/7405/10/2022 2:31 PM EDT Pulse--Sjbcbygupvg28.3 ??C (97.3 ??F)05/29/2022 3:47 PM EDTRespiratory Rate-- Oxygen Saturation--Inhaled Oxygen Concentration--Ofsnix63.4 kg (186 lb) 05/29/2022 3:47 PM IAHXullrc901 cm (5' 3 )05/29/2022 3:47 PM EDTBody Mass Index 32.9505/29/2022 3:47 PM EDT Plan of Treatment Health MaintenanceDue DateLast DoneCommentsDepression Xojziqepy85/10/1982Tobacco Bwepqfpsd24/10/1982DTaP,Tdap and Td Vaccines (1 - Tdap)1989Zoster (Shingles) Vaccine (2 of 2)/dult BMI Pmymfjfol32/31/2023 05/29/20224383Vbbszahcmlr92/07/202312/OVID-19 Vaccine (2 - season) /11/2020Influenza Rebklff44/, 05/16/2021, 05/16/2019, Additional history existsPap Smear, 05/10/2022 Medical Devices Not on file Procedures Procedure NamePriorityDate/TimeAssociated DiagnosisCommentsCOLONOSCOPYRoutine 07/05/2022 Abdominal pain, unspecified abdominal location Rectal bleeding HIGH RISK HPV W/FHUBFniqwqz18/12/2022 8:12 AM EDT from Last 3 Months or Most Recently Relevant to Health Maintenance Results * Colonoscopy (07/05/2022) Narrative Authorizing ProviderResult TypeResult StatusMicbeverly AIKEN PROCEDURE ORDERABLESEdited Result - FinalPerforming OrganizationAddressCity/State/ZIP Code Phone Number MANUALLY TRANSCRIBED RESULTS * High risk HPV w/jimmie (05/10/2022 8:12 AM EDT)ComponentValueRef RangeTest MethodAnalysis TimePerformed AtPathologist SignatureHpv specimen typeThinPrep 05/11/2022 8:13 AM EDTSUNQUESTHpv 16NegativeNegative^Maxfbubs44/15/2022 6:25 AM [facility]AM[facility] LABHpv 18NegativeNegative^Dmkikazv59/15/2022 6:25 AM [facility] LABOther high risk hpvNegative Negative^Qhfmhqsi06/15/2022 6:25 AM [facility] LABComment: HPV types 31,33,35,39,45,52,56,58,59,66 and 68 DNA were undetectable. Specimen (Source)Anatomical Location / LateralityCollection Method / Volume Collection TimeReceived MhadQGTAL99/12/2022 8:12 AM EDT1 8:12 AM EDT Narrative Authorizing ProviderResult TypeResult StatusMarcia Guzman ELECTRICAL TECHNICIAN INSTRUCTOR-CNPLAB BLOOD ORDERABLESFinal ResultPerforming OrganizationAddressCity/State/ZIP CodePhone Number [facility] [address] [place] [address] from Last 3 Months or Most Recently Relevant to Health Maintenance Insurance Care Teams Team MemberRelationshipSpecialtyStart DateEnd Date Sarah Orantes, FELIX-RUBBER STAMP ASSEMBLER [address] [place] [phone] PCP - GeneralFamily Medicine02/23/22
--- OUTSIDE RECORDS SUMMARY | 2025-05-27 09:08 | XMS_ITS | Clinical Summary ---
Author Organization [facility] Address [address] [place] [address] Care Team Providers Care Demo Specialist Name Role Phone Sarah Orantes MD Unavailable [phone] Dick Arroyo MD Primary Care Provider [phone] Social History Tobacco UseTypesPacks/DayYears UsedDateSmoking Tobacco: Never Assessed CommentsUnknownSex and Gender InformationValueDate RecordedSex Assigned at Not on fileLegal XhrTxqoav11/01/2023 8:34 PM EDTGender IdentityNot on fileSexual OrientationNot on file Plan of Treatment Health MaintenanceDue DateLast DoneCommentsCT Kvahfcmmyguz1970Colonoscopy 1970Colorectal Cancer Sewzhyjqb1970FIT-DNA1970FIT1970 FOBT1970 8452Esgichhxoddou1970HPV/Ltazcl9302/06/20007895Ghxnejyeb65/10/2010 Influenza Vaccine (#1), 05/16/2021, 05/16/2019, Additional history existsCervical Cancer Zhgjphpzv09/12/2025Pap Smear Insurance Care Teams Team MemberRelationshipSpecialtyStart DateEnd Dick Arroyo MD [address] [place] [phone] PCP - GeneralFamily Medicine12/05/24 Sarah Orantes MD [address] [place] [address] [phone] Referring Physicianmi Medicine12/05/24
--- OUTSIDE RECORDS SUMMARY | 2025-05-27 09:18 | XMS_ITS | CCD ---
Author Organization [facility] CliniSyut Care Team Providers Care Outreach Consultant Name Role Phone Grant Alvarenga Unavailable SARAH MONTGOMERY Primary Care Unavailable LOS VENTURA Attending Unavailable LOS VETNURA Consulting Unavailable LOS VENTURA Admitting Unavailable DALTON [...] ., DR JASIEL Hutchinson Consulting Unavaila laura [facility] Primary Care Unavailable SARAH MONTGOMERY Admitting Unavailable SARAH MONTGOMERY Attending Unavailable ADRIANA KIM Admitting Unavailable MELISSA, NONE LISTED Primary Care Unavailmichelle HERNANDEZ, DR BARBARA [place] Consulting Unavailable ADRIANA KIM Attending Unavailable ADRIANA KIM Consulting Unavailable SARAH MONTGOMERY Primary Care Unavailable GRILLICalin ., DR JASIEL Hutchinson Admitting Unavaila ble GRILLICalin ., DR JASIEL Hutchinson Attending Unavaila ble ALEXANDER ., DR JASIEL Hutchinson Consulting UnavailJASIEL Alcantara Consulting Unavailable ESPERANZA LAMAR Consulting Unavailable SUSIE KEMP Consulting Unavailable SARAH MONTGOMERY Primary Care Unavailable ADRIANA KIM Admitting Unavailable ADRIANA KIM Attending Unavailable ADRIANA KIM Consulting Unavailable LARISSA CHOI Consulting Unavailable MELISSA, NONE LISTED Primary Care UnavailLOS Barrios Consulting Unavailable LOS VENTURA Admitting Unavailable LOS VENTURA Attending Unavailable MARIOLA INFANTE Consulting Unavailable REQUEST, NONE LISTED Primary Care Unavaila ble BRADANDER, PETER D Admitting Unavailable HIGHLANDER, LOS Mtz Attending Unavailable RAHUL, DR TERI Padilla Consulting Unavailable HIGHLLOS MAC Consulting Unavailable REQUEST, NONE LISTED Primary Care [...] Attending Unavailable VALENTINA, SARAH Primary Care Unavailable COLETTEGRANT CARRION Consulting Unavailable VALENTINA, SARAH Primary Care Unavailable [...] Care Provider UnavailGrant Iyer DO Attending Provider [phone] Valentina TIMBER SETTER-C, Sarah Cheryl Primary Care Provider NON STAFF Primary Care Provider Unavailabl e Colette العراقي, Grant A Attending Provider [phone] Valentina TIMBER SETTER-C, Sarah Cheryl Primary Care Provider Colette DO, Grant A Attending Provider Valentina TIMBER SETTER-C, Sarah Cheryl Primary Care Provider Colette DO, Grant A Attending Provider Valentina TIMBER SETTER-C, Sarah Cheryl Primary Care Provider Colette, Grant A Admitting Unavailable Valentina, Sarah Cheryl Primary Care Unavailable Colette, Grant A Attending Unavailable NON STAFF Primary Care Unavailable Colette, Grant A Admitting Unavailable Colette, Grant A Attending Unavailable Valentina, Sarah Cheryl Primary Care Unavailable Colette, Grant A Admitting Unavailable Colette, Grant A Attending Unavailable Colette, Grant A Admitting Unavailable Valentina, Sarah Cheryl Primary Care Unavailable Colette, Grant A Attending Unavailable Colette, Grant A Admitting Unavailable Valentina, Sarah Cheryl Primary Care Unavailable Colette, Grant A Attending Unavailable Allergies Allergy ClassificationReported Allergen(s)Allergy TypeDate of OnsetReaction(s) Facility (14 sources)AspirinDrug Oghstme24-02-0585SjpndziSt. [facility] (14 sources)LatexPropensity to adverse hchypqkhv60-26-4816LgvefozOhioHealth [facility] (2 sources)AspirinDrug AllergyThe [facility] (2 sources)LatexDrug allergy (disorder)The [facility] (1 source)AspirinDrug Medcsls42-41-0760ZwutwrmoyTuscarawas Hospital Repository (1 source)LatexDrug allergy (disorder)29-16-7182TmfyyndhaTuscarawas Hospital Repository Medications Current Medications MedicationDrug Class(es)DatesSig (Normalized)Sig (Original)acetaminophen 500 mg oral tablet (19 sources)Start: 09-01-2024 End: 33-49-9801logj 2 tablets by mouth every eight hoursAcetaminophen 500 mg tablet Active 1000 MG PO Q8H 180 September 10, 2024 1:00am Complies with dr ug therapyALPRAZolam 0.5 mg oral tablet (11 sources)BenzodiazepineStart: 78-36-5862ewgt 1 tablet by mouth twice daily as needed for anxietyAlprazolam 0.5 mg tablet Active 0.5 MG PO Twice daily as needed for anxiety September 01, 2024 1:00am Complies with drug therapyStart: 22-30-2414Nkvwwlgnzo 0.5 mg tablet Active MG PO September 01, 2024 12:00am amitriptyline hydrochloride 50 mg oral tablet (14 sources)Tricyclic AntidepressantStart: 09-80-5129cwmq 2 tablets by mouth once daily at bedtimeAmitriptyline 50 mg tablet Active 100 MG PO Daily at bedtime September 01, 2024 1:00am Complies with drug therapyStart: 09-01-2024 Amitriptyline 50 mg tablet Active MG PO September 01, 2024 12:00amtake 1 tablet by mouth every twenty-four hoursAmitriptyline HCl 50 MG 1 tablet at bedtime Orally Once a day Activeascorbic acid 1000 mg oral tablet (9 sources)Vitamin CStart: 79-02-9338frls 1 tablet by mouth once dailyAscorbic Acid (Vitamin C) (C-1000) 1,000 mg tablet Active 1 GM PO Daily September 04, 2024 1:00am Complies with drug therapyStart: 05-47-0243ldiu 1 tablet by mouth once dailyAscorbic Acid (Vitamin C) (C-1000) 1,000 mg tablet Active 1 GM PO Daily September 04, 2024 1:00amStart: 59-19-3355izae 1 tablet by mouth once dailyAscorbic Acid (Vitamin C) (C-1000) 1,000 mg tablet Active 1 GM PO Daily September 04, 2024 12:00amcholecalciferol 0.05 mg oral tablet (13 sources)Vitamin DStart: 35-47-0913njfx 1 tablet by mouth once daily Cholecalciferol (Vitamin D3) (Vitamin D3) 50 mcg (2,000 unit) tablet Active 150 MCG PO Daily September 01, 2024 1:00am Complies with drug therapyStart: 99-43-0032Jzvdeglrupsardf (Vitamin D3) (Vitamin D3) 50 mcg (2,000 unit) tablet Active PO September 01, 2024 12:00amtake 1 capsule by mouth every weekVitamin D3 1.25 MG (97800 UT) 1 capsule Orally once per week Activeferrous sulfate 325 mg oral tablet (9 sources)Start: 14-43-0916bxoe 1 tablet by mouth once dailyFerrous Sulfate (Ferosul) 325 mg (65 mg iron) tablet Active 325 MG PO Daily September 04, 2024 1:00am Complies with drug therapylisinopril 20 mg oral tablet (14 sources)Angiotensin Converting Enzyme InhibitorStart: 37-18-3870vsdb 1 tablet by mouth once daily in the morningLisinopril 20 mg tablet Active 20 MG PO Every morning September 01, 2024 1:00am Complies with drug therapytake 1 tablet by mouth every twenty-four hoursLisinopril 20 MG 1 tablet Orally Once a day ActiveMagnesium (3 sources)Start: 92-79-4648tbfrvkzzn Active PO December 10, 2024 12:00am Complies with drug therapyStart: 91-73-5790nmehefzvz Active PO December 10, 2024 12:00am meloxicam 15 mg oral tablet (16 sources)Nonsteroidal Anti-inflammatory DrugStart: 24-49-1458pcqm 1 tablet by mouth once dailyMeloxicam 15 mg tablet Active 15 MG PO daily March 11, 2025 12:00am Complies with drug therapyStart: 09-01-2024 End: 20-12-0200xfth 1 tablet by mouth once dailyMeloxicam 15 mg tablet Discontinued 15 MG PO daily September 01, 2024 1:00am September 04, 2024 12:56pmtake 1 tablet by mouth every twenty-four hoursMeloxicam 15 MG 1 tablet Orally Once a day Levwgl33 hr venlafaxine 75 mg extended release oral capsule (20 sources)Serotonin and Norepinephrine Reuptake InhibitorStart: 89-59-6837myjy 1 capsule by mouth once daily in the morningVenlafaxine 75 mg capsule,extended release 24hr Active 75 MG PO Every morning September 04, 2024 1:00am Complies with drug therapyStart: 68-33-7768klaa 1 tablet by mouth once daily in the morningVenlafaxine 150 mg tablet extended release 24hr Active 150 MG PO Every morning September 01, 2024 1:00am Complies with drug therapytake 1 capsule by mouth every twenty-four hoursEffexor XR 150 MG 1 capsule with food Orally Once a day Activetake 1 capsule by mouth every twenty-four hoursEffexor XR 75 MG 1 capsule with food Orally Once a day Active Completed/Discontinued Medications MedicationDrug Class(es)DatesSig (Normalized)Sig (Original)aspirin 81 mg chewable tablet (15 sources)Platelet Aggregation Inhibitor, Nonsteroidal Anti-inflammatory Drug Start: 09-15-2024 End: 55-52-5043Vltrwcj 81 mg tablet,chewable Discontinued 0 .ROUTE .COMPLEX 74 September 15, 2024 7:50am December 10, 2024 1:52pm CHEW AND SWALLOW 1 TABLET TWICE DAILYStart: 09-10-2024 End: 15-31-7982apaf 1 tablet by mouth twice dailyAspirin 81 mg tablet,chewable Discontinued 81 MG PO Twice daily 74 37 September 10, 2024 1:00am September 15, 2024 7:51amcyclobenzaprine hydrochloride 10 mg oral tablet (8 sources)Muscle RelaxantStart: 09-10-2024 End: 48-00-2535rflr 5-10 mg by mouth every eight hoursCyclobenzaprine 10 mg tablet Discontinued 5 - 10 MG PO Q8H 30 14 September 10, 2024 1:00am December 10, 2024 1:52pmdocusate sodium 100 mg oral capsule (8 sources)Start: 09-10-2024 End: 18-33-3511pija 1 capsule by mouth twice dailyDocusate Sodium (Colace) 100 mg capsule Discontinued 100 MG PO Twice daily 28 14 September 10, 2024 1:00am December 10, 2024 1:52pmdoxycycline hyclate 100 mg oral tablet (8 sources)Tetracycline-class DrugStart: 09-10-2024 End: 75-87-3479vlrj 1 tablet by mouth twice dailyDoxycycline Hyclate 100 mg tablet Discontinued 100 MG PO Twice daily 14 September 10, 2024 1:00am December 10, 2024 1:52pmibuprofen 200 mg oral tablet (9 sources)Nonsteroidal Anti-inflammatory DrugStart: 09-04-2024 End: 96-32-6051Ejgjbeltq (Advil) 200 mg tablet Discontinued 400 MG PO every 6 to 8 hours as needed for fever or pain September 04, 2024 1:00am March 11, 2025 10:42amoxyCODONE hydrochloride 5 mg oral tablet (8 sources)Opioid AgonistStart: 09-10-2024 End: 49-25-4522zgsp 1 tablet by mouth every four hours as needed for pain Oxycodone 5 mg tablet Discontinued 5 MG PO Q4H as needed for Pain 42 September 10, 2024 December 10, 2024 1:52pm dispense 42 (forty-two) tablets diagnosis M17.12 DO NOT FILL UNTIL 09/15/2024traMADol hydrochloride 50 mg oral tablet (8 sources)Opioid AgonistStart: 09-10-2024 End: 10-22-3088sjpt 1 tablet by mouth every four hours as needed for pain Tramadol 50 mg tablet Discontinued 50 MG PO Q4H as needed for Pain 42 September 10, 2024 1:00am December 10, 2024 1:52pm dispense 42 (forty-two) tablets diagnosis M17.12 DO NOT FILL UNTIL 09/15/2024triamcinolone acetonide 40 mg/ml injectable suspension (2 sources)CorticosteroidStart: 55-72-7629Elcwcqc-40 Jan, 40 mg Problems Active Problems Problem ClassificationProblemDateDocumented DateEpisodic/ChronicAcquired foot deformities (10 sources)Valgus deformity, not elsewhere classified, right ankle; Translations: [Varus deformity, not elsewhere classified, right ankle]Onset: 86-59-6981QxlfctruYrtxfnlqw hypertension (1 source)Essential (primary) hypertension; Translations: [ESSENTIAL PRIMARY HYPERTENSION]Onset: 27-36-5772YqoonfgKdejlqy and fatigue (1 source)Weakness; Translations: [WEAKNESS]Onset: 70-23-9657Iisnumii Osteoarthritis (20 sources)Primary osteoarthritis, right ankle and foot; Translations: [Unspecified osteoarthritis, unspecified site]Onset: 91-20-9318EzxwxapLkgav acquired deformities (1 source)Contracture, right ankle; Translations: [CONTRACTURE RIGHT ANKLE] Onset: 83-37-9111EoaiofoWplef connective tissue disease (7 sources)History of total knee arthroplasty; Translations: [Presence of left artificial knee joint]08-31-2829HhaikxiBcxrfpn on above:DOS 09/16/[address] AlvarengaOther connective tissue disease (7 sources)Presence of left artificial knee joint; Translations: [Knee joint replacement]Onset: 686214-36-8071WynpgltKsihl connective tissue disease (5 sources)Triggering of digit; Translations: [Trigger finger, left middle finger]14-75-0708MwswkokhPvvpo connective tissue disease (1 source)Trigger finger, left middle finger; Translations: [Trigger finger (acquired)]73-76-7244UgapzxunVqpcy ear and sense organ disorders (1 source)Unspecified hearing loss, unspecified ear; Translations: [UNS HEARING LOSS UNSPECIFIED EAR]Onset: 21-60-3664PnhfxggLinqy gastrointestinal disorders (3 sources)Constipation; Translations: [Constipation, unspecified]EpisodicOther gastrointestinal disorders (3 sources)Altered bowel function; Translations: [Change in bowel habit]Episodic Other nervous system disorders (3 sources)Carpal tunnel syndrome of left wrist; Translations: [Carpal tunnel syndrome, left upper limb]ChronicOther nervous system disorders (3 sources)Carpal tunnel syndrome of right wrist; Translations: [Carpal tunnel syndrome, right upper limb]ChronicOther nervous system disorders (3 sources)Carpal tunnel syndrome; Translations: [Carpal tunnel syndrome, unspecified upper limb]ChronicOther nervous system disorders (7 sources)Carpal tunnel syndrome, left upper limb; Translations: [CARPAL TUNNEL SYND LEFT UPPER LIMB]Onset: 10-31-2021 Resolved: 30-03-0073RtqvkkgKoqob nervous system disorders (1 source)Carpal tunnel syndrome, right upper limbOnset: 10-31-2021 Resolved: 97-09-4145UzlccxyBgffm nervous system disorders (1 source)Unspecified abnormalities of gait and mobility; Translations: [UNS ABNORMALITIES GAIT AND MOBILITY]Onset: 92-40-4101SbzstpacWuujc nervous system disorders (1 source)Other abnormalities of gait and mobility; Translations: [OTHER ABNORMALITIES GAIT AND MOBILITY]Onset: 86-75-2811JmpwwjkwQmjxb non-traumatic joint disorders (1 source)Other instability, right ankle; Translations: [OTHER INSTABILITY RIGHT ANKLE]Onset: 89-83-0126YwjctxfqXyrap nutritional; endocrine; and metabolic disorders (1 source)Obesity, unspecified; Translations: [OBESITY UNSPECIFIED]Onset: 84-41-9151ThmvaryDrlszjfwqbiy (1 source)CONTACT W/AND (SUSP) EXPOS COVID-19; Translations: [CONTACT W/AND (SUSP) EXPOS COVID-19]Onset: 89-29-0474Dtlemyzghqls (1 source)ESOPHAGITIS UNSPEC WITHOUT BLEEDING; Translations: [ESOPHAGITIS UNSPEC WITHOUT BLEEDING]Onset: 05-24-2022 Past or Other Problems Problem ClassificationProblemDateDocumented DateEpisodic/ChronicAbdominal pain (5 sources)Unspecified abdominal pain; Translations: [UNSPECIFIED ABDOMINAL PAIN]Onset: 70-04-7892IreclckoLybmhwufw and duodenitis (1 source)Other gastritis without bleeding; Translations: [OTHER GASTRITIS WITHOUT BLEEDING]Onset: 63-63-1705WlprugnbQkxtgowuyetlfilb hemorrhage (5 sources)Hemorrhage of anus and rectum; Translations: [HEMORRHAGE OF ANUS AND RECTUM]Onset: 85-90-4602YhzgzucnAnjjjwdqgwnol symptoms and ill-defined conditions (2 sources)Personal history of urinary (tract) infections; Translations: [Other difficulties with micturition]Onset: 00-22-8409NiitckswLduteh and vomiting (1 source)Nausea; Translations: [NAUSEA]Onset: 84-68-8016TuwxwezrWadlq acquired deformities (1 source)Mallet finger of left finger(s)Onset: 10-31-2021 Resolved: 47-17-6795XbiopqjiPnkgh acquired deformities (1 source)Other specified acquired deformities of musculoskeletal system; Translations: [OTHER SPEC ACQ DEFORMITY MSK SYS]Onset: 24-41-3169AxevbebhEvunb circulatory disease (4 sources)Other specified symptoms and signs involving the circulatory and respiratory systems; Translations:[OTH SPEC SX SIGNS INVLV CIRC RS]Onset: 48-44-7436OvjszcmaIsjdg connective tissue disease (1 source)Trochanteric bursitis, right hipOnset: 01-27-2022 Resolved: 34-02-8374IjdexugcTjeec connective tissue disease (1 source)Trigger finger, right middle fingerOnset: 02-03-2022 Resolved: 71-44-5134QnxhfbjcBnexb connective tissue disease (4 sources)Pain in right foot; Translations: [PAIN IN RIGHT FOOT]Onset: 69-29-5020PrhdnoubQkcox connective tissue disease (1 source)Posterior tibial tendinitis, right leg; Translations: [POSTERIOR TIBIAL TENDINITIS RT LEG]Onset: 45-47-1797QmhzmqpqAcslh non-traumatic joint disorders (1 source)Pain in right hipOnset: 01-27-2022 Resolved: 44-31-8985HffhpqvmVcusz non-traumatic joint disorders (1 source)Other specified joint disorders, right ankle and foot; Translations: [OTHER SPEC JOINT D/O RT ANKLEFOOT]Onset: 90-57-1281KtxvsbweJbkxi non-traumatic joint disorders (1 source)Pain in left knee; Translations: [Pain in left knee]Onset: 09-01-2024 EpisodicResidual codes; unclassified (2 sources)Other specified postprocedural statesOnset: 01-27-2022 Resolved: 74-62-0664ZzfsdvaxZjuxyavm codes; unclassified (1 source)Acquired absence of both cervix and uterus; Translations: [ACQUIRED ABSENCE BOTH CERVIX AND UTERUS]Onset: 85-46-0338UguxaqxlJpqcxoyu codes; unclassified (1 source)Acquired absence of uterus with remaining cervical stump; Translations: [ACQ ABSENCE UTRUS REM CERVSTUMP]Onset: 54-11-7272Puojlanp Screening and history of mental health and substance abuse codes (1 source)Personal history of nicotine dependence; Translations: [PERSONAL HISTORY OF NICOTINE DEPEND]Onset: 53-72-4803NadjbpmaKnqyvvn tract infections (5 sources)Urinary tract infection, site not specified; Translations: [UTI SITE NOT SPECIFIED]Onset: 33-15-7376Stegvpvc Results Test NameValueInterpretationReference RangeFacilityX-ray reportOrdered By: Arcadio Ontiveros on 30-70-7336Xckbt reportMERCY HEALTH ST[facility] [address] [place] [address] XRay Report Signed Patient: Simin Caro MR#: [id number] : 1970 Acct:[id number] Age/Sex: 55 / F ADM Date: 5 Loc: SOXD Room: Type: [facility] Attending Dr: Grant Alvarenga DO Copies to: Grant Alvarenga DO~ Ordering Provider: Grant Alvarenga DO Date of Service: 03/11/25 XR/XR knee LT 3V - NOT FOR ER USE: Z96.652 - Presenceof left artificial knee joint 3 views left knee plain film COMPARISON: 09/16/2024 HISTORY: Status post left total knee arthroplasty ACUTE FINDINGS: No acute findings DEGENERATIVE CHANGE: Unremarkable SOFT TISSUE FINDINGS: Unremarkable JOINT EFFUSION: Small joint effusion POSTOP CHANGES: Stable hardware BONE MINERALIZATION: Adequate XR/XR knee LT 3V - NOT FOR ER USE IMPRESSION: Stable uncomplicated left knee arthroplasty Impression dictated by: Arcadio Ontiveros M.D. 03/11/2025 1:08 PM Dictation Location: [place] [address] Transcribed By: JESSICA 03/11/25 1308 Dictated By: Arcadio Ontiveros DO 03/11/25 1308 Signed By: 03/11/25 1308 [facility] HospitalXR [facility] 3V - NOT FOR ER USEon 73-86-6263GZ knee LT 3V - NOT FOR ER USEMERCY HEALTH ST[facility] [address] [place] [address] XRay Report Signed Patient: Simin Caro MR#: [id number] : 1970 Acct:[id number] Age/Sex: 55 / F ADM Date: 03/11/25 Loc: [facility] Room: Type: [facility] Attending Dr: Grant Alvarenga DO Copies to: Grant Alvarenga DO Ordering Provider: Grant Alvarenga DO Date of Service: 03/11/25 XR/XR knee LT 3V - NOT FOR ER USE: Z96.652 - Presence of left artificial knee joint 3 views left knee plain film COMPARISON: 09/16/2024 HISTORY: Status post left total knee arthroplasty ACUTE FINDINGS: No acute findings DEGENERATIVE CHANGE: Unremarkable SOFT TISSUE FINDINGS: Unremarkable JOINT EFFUSION: Small joint effusion POSTOP CHANGES: Stable hardware BONE MINERALIZATION: Adequate XR/XR knee LT 3V - NOT FOR ER USE IMPRESSION: Stable uncomplicated left knee arthroplasty Impression dictated by: Arcadio Ontiveros M.D. 03/11/2025 1:08 PM Dictation Location: [place] [address] Transcribed By: [facility] 03/11/25 1308 Dictated By: Arcadio Ontiveros DO 03/11/25 1308 Signed By: 03/11/25 1308[facility] Physician [facility] HospitalAmphetamine Screen Ql (U)Ordered By: BARBARA ESPINOZA on 61-40-0316Vqirpqfnmfcm Ql (U)Amphetamines screenNegative [facility] HospitalBarbiturates [Presence] in Urine by Screen methodOrdered By: BARBARA ESPINOZA on 25-51-3229Ewscrbmztwyy Screen Ql (U) Barbiturates [Presence] in Urine by Screen methodNegMercy Health West HospitalBenzodiazepines Screen Ql (U)Ordered By: BARBARA ESPINOZA on 18-88-5958Ranswctsizbpeom Ql (U)Benzodiazepines [Presence] in Urine by Screen methodNegMercy Health West HospitalBenzoylecgonine [Presence] in Urine by Screen methodOrdered By: BARBARA ESPINOZA on 95-54-7156Ltpsfqbwnlfszne Screen Ql (U)Benzoylecgonine [Presence] in Urine by Screen methodNegative [facility] HospitalCannabinoids [Presence] in Urine by Screen methodOrdered By: BARBARA ESPINOZA on 33-42-6420Mrzlblkviszw Screen Ql (U) Cannabinoids [Presence] in Urine by Screen methodRegional Medical CenterComment on above:These are unconfirmed results and should not be used for legal purposes. Drug Cut-Off Concentration: AMPH 1000 ng/mL WANG 200 ng/mL ROMEL 200 ng/mL COCM 300 ng/mL OP 300 ng/mL PCP 25 ng/mL THC 20 ng/mLDrug Screen,Urineon 76-61-4306Zewzoehxmwr Screen,UrineNegativeNormalNegAnderson SanatoriumComment on above:Performed By: #### URDS #### [facility] [address] [place] [address] USABarbiturate Screen,UrineNegativeNormalNegAnderson SanatoriumComment on above:Performed By: #### URDS #### [facility] [address] [place] [id number] USABenzodiazepines Screen,UrineNegativeNormalNegativeThe Firelands Physician GroupComment on above:Performed By: #### URDS #### [place] [address] USACannabinoid Screen,UrinePositiveHighNegativeThe [facility] Physician GroupComment on above:Result Comment: These are unconfirmed results and should not be used for legal purposes. Drug Cut-Off Concentration: AMPH 1000 ng/mL WANG 200 ng/mL ROMEL 200 ng/mL COCM 300 ng/mL OP 300 ng/mL PCP 25 ng/mL THC 20 ng/mL PERFORMED BY: [place] [address] PATHOLOGIST [employer] GIUSEPPE METZ M.D.Performed By: #### URDS #### [place] [address] USACocaine Screen,UrineNegativeNormalNegativeThe [facility] Physician GroupComment on above:Performed By: #### URDS #### [place] [address] USAOpiate Screen,UrineNegativeNormalNegativeThe [facility] Physician GroupComment on above:Performed By: #### URDS #### [place] [address] USAPhencyclidine Screen,UrineNegativeNormalNegativeThe [facility] Physician GroupComment on above:Performed By: #### URDS #### [place] [address] USALon 09-16-2024 Specimen: [id number] Received: 09/16/24 Status: JUNIOR Oropeza Num: [id number] Spec Type: Surgical Subm Dr: Grant Alvarenga, DO Tissues: A Gross Only (LEFT KNEE) Procedures: Level 1 Gross Age/ Patient Sex Location Account Attending Physician Simin Caro 54/F [place] [id number] Grant Alvarenga DO SPEC NUM: [id number] RECD: 09/16/24 STATUS: JUNIOR OROPEZA NUM: [id number] MATHEW: 09/16/[address] [facility] [address]: Grant Alvarenga DO ENTERED: 09/16/[address] [facility] [address]: LAURA TYPE: Surgical DEPT: S ENTERED BY: [id number] RECV BY: [id number] ORDERED: Level 1 Gross ORDERED: Level 1 [...] glistening and uniform cut surfaces. GROSS ONLY-JG Specimen: [id number] Received: 09/16/24 Status: JUNIOR Oropeza Num: [id number] Spec Type: Surgical Subm Dr: Grant Alvarenga DO Tissues: A Gross Only (LEFT KNEE) Procedures: Level 1 Gross Patient: Simin Caro [id number] (Continued) Specimen: [id number] Received: 09/16/24 (Continued) Signed (signature on file) Karla Hamlin MD 09/17/24 7371 Specimen: Received: 09/16/24 Status: JUNIOR Oropeza Num: [id number] Spec Type: Surgical Subm Dr: Grant Alvarenga DO Tissues: A Gross Only (LEFT KNEE) Procedures: Level 1 Gross Patient: Simin Caro Masoud [id number] (Continued) Specimen: Received: 09/16/24 (Continued) Microscopic Description Not performed CPT Codes 68952 Specimen: [id number] Received: 09/16/24 Status: JUNIOR Oropeza Num: [id number] Spec Type: Surgical Subm Dr: Grant Alvarenga DO Tissues: A Gross Only (LEFT KNEE) Procedures: Level 1 Gross Patient: Simin Caro [id number] (Continued) Signed (signature on file) Karla Hamlin MD 09/17/[address] [place] [address] Physician GroupOpiates [Presence] in Urine by Screen methodOrdered By: BARBARA ESPINOZA on 89-35-9088Yjfwigx Screen Ql (U)Opiates [Presence] in Urine by Screen methodNegMercy Health West Hospital Phencyclidine Screen Ql (U)Ordered By: BARBARA ESPINOZA on 04-83-2921Aqfkpjygubsfn Ql (U)Phencyclidine [Presence] in Urine by Screen methodNegMercy Health West HospitalXR knee LT 2Von 88-51-7013DO knee LT [address]VM[address] [place] [address] XRay Report Signed Patient: Simin Caro MR#: [id number] : 1970 Acct:[id number] Age/Sex: 54 / F ADM Date: 09/16/24 Loc: [place] Room: Type: [facility] Attending Dr: Grant Alvarenga DO Copies to: [...] Arcadio Ontiveros M.D.09/16/2024 4:05 PM Dictation Location: [place] [address] Transcribed By: [facility] 09/16/24 1605 Dictated By: Arcadio Ontiveros DO 09/16/24 1604 Signed By: 09/16/24 1605[facility] Physician GroupAlanine aminotransferase [Enzymatic activity/volume] in Serum or PlasmaOrdered By: Grant Alvarenga on 29-54-8775GBL [Catalytic activity/Vol]Alanine aminotransferase [Enzymatic activity/volume] in Serum or Plasma7-52Tuscarawas HospitalAlbumin [Mass/volume] in Serum or Plasma by Bromocresol green (BCG) dye binding metho Ordered By: Grant Alvarenga on 42-94-0101Hvjxznz BCG dye [Mass/Vol]Albumin [Mass/volume] in Serum or Plasma by Bromocresol green (BCG) dye binding metho 3.5-5.7FVeterans Health AdministrationAlkaline phosphatase [Enzymatic activity/volume] in Serum or PlasmaOrdered By: Grant Alvarenga on 63-93-2241DGZ [Catalytic activity/Vol]Alkaline phosphatase [Enzymatic activity/volume] in Serum or Civkim27-813ZabsptzvoTuscarawas HospitalAppearance of UrineOrdered By: Grant Alvarenga on 13-46-8807Iheyuhvjuj (U)Urine appearanceCleOhioHealth O'Bleness HospitalAspartate aminotransferase [Enzymatic activity/volume] in Serum or PlasmaOrdered By: Grant Alvarenga on 73-65-6048ZFX [Catalytic activity/Vol]Aspartate aminotransferase [Enzymatic activity/volume] in Serum or Nwgqwd17-98NkqfiowqfTuscarawas HospitalBasophils Auto (Bld) [#/Vol]Ordered By: Grant Alvarenga on 93-26-8200Bgombxvih (Bld) [#/Vol]Automated basophil count 0.0-0.2FVeterans Health AdministrationBasophils/100 WBC Auto (Bld)Ordered By: Grant Alvarenga on 87-84-8558Dgxtkwqqe/100 WBC (Bld)Automated basophil %.Tuscarawas HospitalBilirubin Test strip Ql (U)Ordered By: Grant Alvarenga on 61-91-7448Yoiymtaud Ql (U)Bilirubin.total [Presence] in Urine by Test strip NegativeTuscarawas HospitalBilirubin.total [Mass/volume] in Serum or PlasmaOrdered By: Grant Alvarenga on 14-91-8567Oyxftfxbx [Mass/Vol] Bilirubin.total [Mass/volume] in Serum or PlasmaLow0.3-1.0Tuscarawas HospitalCMP with reflex to A1Con 94-84-2760Hkydksp [Mass/Vol]4.0 g/dL Normal3.5-5.7The [facility] Physician GroupComment on above:Performed By: #### CBC, CMP wRFX A1C #### [facility] [address] [place] [address] USAAlbumin/Globulin [Mass ratio]1.7 {ratio}NormalThe [facility] Physician GroupComment on above:Performed By: #### CBC, CMP wRFX A1C #### [facility] [address] [place] [address] USAALP [Catalytic activity/Vol]76 U/GMjaqce64-487Gub [facility] Physician GroupComment on above:Result Comment: PERFORMED BY: [place] [address] PATHOLOGIST MIDWIFE PRACTITIONER GIUSEPPE METZ M.D.Performed By: #### CBC, CMP wRFX A1C #### [facility] [address] [place] [address] USAALT [Catalytic activity/Vol]9 U/LNormal7-52The [facility] Physician GroupComment on above:Performed By: #### CBC, CMP wRFX A1C #### [facility] [address] [place] [address] USAAnion gap [Moles/Vol]9.2 mmol/LNormal6.0-15.0The [facility] Physician GroupComment on above:Performed By: #### CBC, CMP wRFX A1C #### [facility] [address] [place] [address] USAAST [Catalytic activity/Vol]13 U/ZRmywve83-24Mox [facility] Physician GroupComment on above:Performed By: #### CBC, CMP wRFX A1C #### [facility] [address] [place] [address] USABilirubin [Mass/Vol]0.2 mg/dLLow0.3-1.0The [facility] Physician GroupComment on above:Performed By: #### CBC, CMP wRFX A1C #### [facility] [address] [place] [address] USACalcium [Mass/Vol]9.3 mg/dLNormal8.6-10.3The [facility] Physician GroupComment on above:Performed By: #### CBC, CMP wRFX A1C #### [place] [address] USAChloride [Moles/Vol]104 mmol/HYqnscy33-373Yuf [facility] Physician GroupComment on above:Performed By: #### CBC, CMP wRFX A1C #### [facility] [address] [place] [address] USACO2 [Moles/Vol]29.9 mmol/MErrzuj04.0-31.0The [facility] Physician GroupComment on above:Performed By: #### CBC, CMP wRFX A1C #### [facility] [address] [place] [id number] USACreatinine [Mass/Vol]0.79 mg/dLNormal0.60-1.20The [facility] Physician GroupComment on above:Performed By: #### CBC, CMP wRFX A1C #### [facility] [address] [place] [address] USAGFR/1.73 sq M.predicted MDRD (S/P/Bld) [Vol rate/Area] mL/min/{1.73_m2}NormalThe [facility] Physician GroupComment on above:Performed By: #### CBC, CMP wRFX A1C #### [facility] [address] [place] [address] USAGlobulin (S) [Mass/Vol]2.4 g/dLNormalThe [facility] Physician GroupComment on above:Performed By: #### CBC, CMP wRFX A1C #### [place] [address] USAGlucose [Mass/Vol]94 mg/sHHnxjfv18-340Hgp [facility] Physician GroupComment on above:Performed By: #### CBC, CMP wRFX A1C #### [place] [address] USAPotassium [Moles/Vol]4.1 mmol/LNormal3.5-5.1The [facility] Physician GroupComment on above:Performed By: #### CBC, CMP wRFX A1C #### [place] [address] USAProtein [Mass/Vol]6.4 g/dLNormal6.4-8.9The [facility] Physician GroupComment on above:Performed By: #### CBC, CMP wRFX A1C #### [place] [address] USASodium [Moles/Vol]139 mmol/AJgugdi119-261Ulh [facility] Physician GroupComment on above:Performed By: #### CBC, CMP wRFX A1C #### [place] [address] USAUrea nitrogen [Mass/Vol]6 mg/dLLow7-25The [facility] Physician GroupComment on above:Performed By: #### CBC, CMP wRFX A1C #### [place] [address] USACalcium [Mass/volume] in Serum or PlasmaOrdered By: Grant Alvarenga on 20-60-4524Mzejilg [Mass/Vol]Calcium [Mass/volume] in Serum or Plasma 8.6-10.3FVeterans Health AdministrationCarbon dioxide, total [Moles/volume] in Serum or PlasmaOrdered By: Grant Alvarenga on 07-04-5650KP4 [Moles/Vol]Carbon dioxide, total [Moles/volume] in Serum or Ghsejl95.0-31.0Tuscarawas HospitalChloride [Moles/volume] in Serum or PlasmaOrdered By: Grant Alvarenga on 07-03-1810Jugieviw [Moles/Vol]Chloride [Moles/volume] in Serum or Szndsy05-970QtfgcowtqTuscarawas HospitalColor Auto (U)Ordered By: Grant Alvarenga on 85-65-9869Lzjsi (U)Color of Urine by AutoYellowTuscarawas HospitalComplete Blood Count Auto Diffon 56-83-5675Cebszitma (Bld) [#/Vol] 0.0 10*3/uLNormal0.0-0.2The [facility] Physician GroupComment on above:Result Comment: PERFORMED BY: [place] [address] PATHOLOGIST MIDWIFE PRACTITIONER GIUSEPPE METZ M.D.Performed By: #### CBC, CMP wRFX A1C #### [facility] [address] [place] [address] USABasophils/100 WBC (Bld)1.0 %Normal.The [facility] Physician GroupComment on above:Performed By: #### CBC, CMP wRFX A1C #### [facility] [address] [place] [address] USAEosinophils (Bld) [#/Vol]0.1 10*3/uLNormal0.0-0.45The [facility] Physician GroupComment on above:Performed By: #### CBC, CMP wRFX A1C #### [facility] [address] [place] [address] USAEosinophils/100 WBC (Bld)2.7 %Normal.The [facility] Physician GroupComment on above:Performed By: #### CBC, CMP wRFX A1C #### [place] [address] USAErythrocyte distribution width (RBC) [Ratio]13.1 %Normal 11.9-15.3The [facility] Physician GroupComment on above:Performed By: #### CBC, CMP wRFX A1C #### [place] [address] USAHematocrit (Bld) [Volume fraction]40.3 %Gcyopg37.0-46.4The [facility] Physician GroupComment on above:Performed By: #### CBC, CMP wRFX A1C #### [place] [address] USAHemoglobin (Bld) [Mass/Vol]14.0 g/mXCquhgw77.8-15.4The [facility] Physician GroupComment on above:Performed By: #### CBC, CMP wRFX A1C #### [place] [address] USALymphocytes (Bld) [#/Vol]1.2 10*3/uLNormal1.00-4.8The [facility] Physician GroupComment on above:Performed By: #### CBC, CMP wRFX A1C #### [place] [address] USALymphocytes/100 WBC (Bld)32.1 %Normal.The [facility] Physician GroupComment on above:Performed By: #### CBC, CMP wRFX A1C #### [place] [address] USAMCH (RBC) [Entitic mass]29.1 azWrzfpu19.7-34.3The [facility] Physician GroupComment on above:Performed By: #### CBC, CMP wRFX A1C #### [place] [address] USAMCV (RBC) [Entitic vol]83.9 xDPgfgqu96-656Nxs [facility] Physician GroupComment on above:Performed By: #### CBC, CMP wRFX A1C #### [address] [place] [address] USAMean Corpuscular HGB Conc34.7 g/dJXcuade35.0-35.0The [facility] Physician GroupComment on above:Performed By: #### CBC, CMP wRFX A1C #### [place] [address] USAMonocytes (Bld) [#/Vol]0.4 10*3/uLNormal0.0-0.8The [facility] Physician GroupComment on above:Performed By: #### CBC, CMP wRFX A1C #### [place] [address] USAMonocytes/100 WBC (Bld)10.5 %Normal.The [facility] Physician GroupComment on above:Performed By: #### CBC, CMP wRFX A1C #### [place] [address] USANeutrophils (Bld) [#/Vol]2.0 10*3/uLNormal1.8-7.7The [facility] Physician GroupComment on above:Performed By: #### CBC, CMP wRFX A1C #### [place] [address] USANeutrophils/100 WBC (Bld)53.7 %Normal.The [facility] Physician GroupComment on above:Performed By: #### CBC, CMP wRFX A1C #### [place] [address] USANRBC%0.1 /100{WBC}Normal0-0.5The [facility] Comment on above:Performed By: #### CBC, CMP wRFX A1C #### [place] [address] USAPlatelet mean volume (Bld) [Entitic vol]8.0 fLNormal 6.3-10.7The [facility] Physician GroupComment on above:Performed By: #### CBC, CMP wRFX A1C #### [place] [address] USAPlatelets (Bld) [#/Vol]276 10*3/rQFibcuf890-368Rar [facility] Physician GroupComment on above:Performed By: #### CBC, CMP wRFX A1C #### [facility] [address] [place] [address] USARBC (Bld) [#/Vol]4.81 10*6/uLNormal3.60-5.00The [facility] Physician GroupComment on above:Performed By: #### CBC, CMP wRFX A1C #### [facility] [address] [place] [address] USAWBC (Bld) [#/Vol]3.7 10*3/uLLow3.8-11.6The [facility] Physician GroupComment on above:Performed By: #### CBC, CMP wRFX A1C #### [facility] [address] [place] [address] USACreatinine [Mass/volume] in Serum or PlasmaOrdered By: Grant Alvarenga on 41-36-1479Aegjlxsxmi [Mass/Vol]Creatinine [Mass/volume] in Serum or Plasma0.60-1.20Tuscarawas HospitalECG 12 lead ECGon 69-51-1678ANT [address] [facility] [place] [address] [place] [address] Electrocardiograph Report Signed Patient: Simin Caro MR#: [id number] : 1970 Acct:[id number] Age/Sex: 54 / F ADM Date: 09/04/24 Loc: Room: Type: [facility] Attending Dr: Grant Alvarenga DO Ordering Provider: [...] No previous ECGs available Confirmed by ALFREDO GALEANO MD ([id number]) on 09/04/2024 11:42:51 AM Referred By: Electronically Signed By: ALFREDO GALEANO MD Transcribed By: MUS Signed By Alfredo Galeano MD 0 09/04/[address] [place] [address] Physician GroupEosinophils Auto (Bld) [#/Vol] Ordered By: Grant Alvarenga on 01-71-7110Jghuvotkmpj (Bld) [#/Vol]Automated eosinophil count0.0-0.45Tuscarawas HospitalEosinophils/100 WBC Auto (Bld)Ordered By: Grant Alvarenga on 39-27-4278Nilqzhzjwbd/100 WBC (Bld) Automated eosinophil %.Tuscarawas HospitalErythrocyte distribution width Auto (RBC) [Ratio]Ordered By: Grant Alvarenga on 36-85-2572Axcgleynzss distribution width (RBC) [Ratio]Erythrocyte distribution width [Ratio] by Automated count11.9-15.3FVeterans Health AdministrationGlobulin Calc (S) [Mass/Vol]Ordered By: Grant Alvarenga on 81-62-2960Ldxooywn (S) [Mass/Vol]Serum globulin measurement by calculation (mass/volume)T[facility]aw[facility] HospitalGlucose [Mass/volume] in Serum or PlasmaOrdered By: Grant Alvarenga on 62-64-6410Dzvovuc [Mass/Vol]Glucose [Mass/volume] in Serum or Ztlkke28-103 [facility] HospitalGlucose [Mass/volume] in Urine by Test strip Ordered By: Grant Alvarenga on 56-40-4155Iufldcw Test strip (U) [Mass/Vol]Glucose [Mass/volume] in Urine by Test stripNormalTuscarawas Hospital Hematocrit Auto (Bld) [Volume fraction]Ordered By: Grant Alvarenga on 09-04-2024 Hematocrit (Bld) [Volume fraction]Hematocrit [Volume Fraction] of Blood by Automated count34.0-46.4FVeterans Health AdministrationHemoglobin Test strip Ql (U)Ordered By: Grant Alvarenga on 66-75-0244Jttnsaxrtd Ql (U)Hemoglobin [Presence] in Urine by Test stripNegativeTuscarawas Hospital Hemoglobin [Mass/volume] in BloodOrdered By: Grant Alvarenga on 02-06-2025 Hemoglobin (Bld) [Mass/Vol]Hemoglobin [Mass/volume] in Blood11.8-15.4FVeterans Health AdministrationKetones Test strip Ql (U)Ordered By: Grant Alvarenga on 29-11-4662Mujltzp Ql (U)Ketones [Presence] in Urine by Test stripNegative [facility] HospitalLeukocyte esterase [Presence] in Urine by Test stripOrdered By: Grant Alvarenga on 97-07-8019Lgptpaxlo esterase Test strip Ql (U) Leukocyte esterase [Presence] in Urine by Test stripNegativeTuscarawas HospitalLeukocytes [#/volume] corrected for nucleated erythrocytes in Blood by Automated counOrdered By: Grant Alvarenga on 47-54-9548HHW corrected for nucl RBC Auto (Bld) [#/Vol]Leukocytes [#/volume] corrected for nucleated erythrocytes in Blood by Automated counLow3.8-11.6FVeterans Health AdministrationLymphocytes Auto (Bld) [#/Vol]Ordered By: Grant Alvarenga on 09-04-2024 Lymphocytes (Bld) [#/Vol]Lymphocytes [#/volume] in Blood by Automated count 1.00-4.8Tuscarawas HospitalLymphocytes/100 WBC Auto (Bld)Ordered By: Grant Alvarenga on 63-24-1778Zlljgsgxtgj/100 WBC (Bld)Lymphocytes/100 leukocytes in Blood by Automated count.[facility] HospitalH Auto (RBC) [Entitic mass]Ordered By: Grant Alvarenga on 27-23-7575EJP (RBC) [Entitic mass]MCH [Entitic mass] by Automated count24.7-34.3FMercy Health Urbana HospitalHC Auto (RBC) [Mass/Vol]Ordered By: Grant Alvarenga on 97-81-8755AQFS (RBC) [Mass/Vol]MCHC [Mass/volume] by Automated count32.0-35.0Tuscarawas HospitalMCV Auto (RBC) [Entitic vol]Ordered By: Grant Alvarenga on 97-39-9226ONG (RBC) [Entitic vol]MCV [Entitic volume] by Automated ayort54-728 [facility] HospitalMonocytes Auto (Bld) [#/Vol]Ordered By: Grant Alvarenga on 91-11-1604Itcmqlyng (Bld) [#/Vol]Automated blood monocyte count0.0-0.8 [facility] HospitalMonocytes/100 WBC Auto (Bld)Ordered By: Grant Alvarenga on 36-55-1063Vlpkpgrts/100 WBC (Bld)Automated monocyte %.Tuscarawas HospitalNeutrophils Auto (Bld) [#/Vol]Ordered By: Grant Alvarenga on 96-34-1251Eoktviihrkg (Bld) [#/Vol]Neutrophils [#/volume] in Blood by Automated count1.8-7.7FVeterans Health AdministrationNeutrophils/100 WBC Auto (Bld)Ordered By: Grant Alvarenga on 24-68-1541Rxeznvyvwfh/100 WBC (Bld)Automated neutrophil %.T[facility]carawas HospitalNitrite Test strip Ql (U)Ordered By: Grant Alvarenga on 00-61-4458Ptqonjk Ql (U)Nitrite [Presence] in Urine by Test stripNegativeTuscarawas HospitalNo Panel InformationOrdered By: Grant Alvarenga on 35-19-3646Bckeyxueo GFR (CKD-EPI)> 60.0 mL/MinTuscarawas HospitalPharmacy Creatinine Clearance (ChemN/AFVeterans Health AdministrationNucleated erythrocytes [Presence] in Blood by Automated count Ordered By: Grant Alvarenga on 08-14-5633Ohyxasvyb RBC Auto Ql (Bld)Nucleated erythrocytes [Presence] in Blood by Automated count0-0.5FVeterans Health AdministrationPlatelet mean volume Auto (Bld) [Entitic vol]Ordered By: Grant Alvarenga on 35-45-2058Ohhwbcyd mean volume (Bld) [Entitic vol]Platelet mean volume [Entitic volume] in Blood by Automated count6.3-10.7FVeterans Health AdministrationPlatelets Auto (Bld) [#/Vol]Ordered By: Grant Alvarenga on 09-04-2024 Platelets (Bld) [#/Vol]Platelets [#/volume] in Blood by Automated -029 [facility] HospitalPotassium [Moles/volume] in Serum or Plasma Ordered By: Grant Alvarenga on 29-45-5312Xdgzuvhmy [Moles/Vol]Potassium [Moles/volume] in Serum or Plasma3.5-5.1FVeterans Health AdministrationProtein Test strip (U) [Mass/Vol]Ordered By: Grant Alvarenga on 05-58-2243Duywwtz (U) [Mass/Vol]Protein [Mass/volume] in Urine by Test stripNegativeTuscarawas HospitalProtein [Mass/volume] in Serum or PlasmaOrdered By: Grant Alvarenga on 47-32-7001Alsilnx [Mass/Vol]Protein [Mass/volume] in Serum or Plasma6.4-8.9 [facility] HospitalRBC Auto (Bld) [#/Vol]Ordered By: Grant Alvarenga on 86-61-2772CQF (Bld) [#/Vol]Erythrocytes [#/volume] in Blood by Automated count3.60-5.00ProMedica [facility]edo Hospitalerum or plasma albumin/globulin mass ratioOrdered By: Grant Alvarenga on 43-95-4886Oabeovo/Globulin [Mass ratio] Serum or plasma albumin/globulin mass ratioTuscarawas Hospital Serum or plasma anion gap determinationOrdered By: Grant Alvarenga on 09-04-2024 Anion gap [Moles/Vol]Serum or plasma anion gap determination6.0-15.0ProMedica [facility] Hospitalodium [Moles/volume] in Serum or PlasmaOrdered By: Grant Alvarenga on 33-04-0462Lwfxsp [Moles/Vol]Sodium [Moles/volume] in Serum or Ekpgit525-962SndobfeaxProMedica Toledo Hospitalpecific gravity Test strip (U) [Rel density]Ordered By: Grant Alvarenga on 92-76-2713Wmysvfxv gravity (U) [Rel density]Specific gravity of Urine by Test strip1.001-1.030Tuscarawas HospitalUrea nitrogen [Mass/volume] in Serum or PlasmaOrdered By: Grant Alvarenga on 14-36-8303Citb nitrogen [Mass/Vol]Urea nitrogen [Mass/volume] in Serum or PlasmaLow7-25Tuscarawas HospitalUrinalysison 09-04-2024 Appearance (U)ClearNormalClearThe [facility] Physician GroupComment on above: Order Comment: Name Collection Type:: Clean-Voided MidstreamPerformed By: #### UA #### [facility] [address] [place] [address] USABilirubin,UrineNegativeNormalNegativeThe [facility] Physician GroupComment on above:Order Comment: Name Collection Type:: Clean- Voided MidstreamPerformed By: #### UA #### [facility] [address] [place] [address] USAColor (U)Light-YellowNormalYellowThe [facility] Physician GroupComment on above:Order Comment: Name Collection Type:: Clean-Voided MidstreamPerformed By: #### UA #### [place] [id number] USAGlucose Ql (U)NormalNormalNormalThe [facility] Physician GroupComment on above:Order Comment: Name Collection Type:: Clean-Voided MidstreamPerformed By: #### UA #### [address] [address] USAKetones Ql (U)NegativeNormalNegativeThe [facility] Physician GroupComment on above:Order Comment: Name Collection Type:: Clean- Voided MidstreamPerformed By: #### UA #### [facility] [address] [place] [address] USALeukocyte esterase Test strip Ql (U)NegativeNormalNegative The [facility] Physician GroupComment on above:Order Comment: Name Collection Type:: Clean-Voided MidstreamPerformed By: #### UA #### [address] [address] USANitrite,UrineNegativeNormalNegativeThe [facility] Physician GroupComment on above:Order Comment: Name Collection Type:: Clean-Voided MidstreamPerformed By: #### UA #### [place] [id number] USAOccult Blood,UrineNegativeNormalNegativeThe [facility] Physician GroupComment on above:Order Comment: Name Collection Type:: Clean- Voided MidstreamResult Comment: PERFORMED BY: [place] [address] PATHOLOGIST MIDWIFE PRACTITIONER MOHAMED M EL-FAKHARANY M.D.Performed By: #### UA #### [place] [address] USApH (U)7.5 [pH]Normal5.0-9.0The [facility] Comment on above:Order Comment: Name Collection Type:: Clean-Voided Midstream Performed By: #### UA #### [place] [address] USAProtein,UrineNegativeNormalNegativeThe [facility] Physician GroupComment on above:Order Comment: Name Collection Type:: Clean-Voided MidstreamPerformed By: #### UA #### [place] [address] USASpecificy Vail,Urine1.616Mzpyhf7.001-1.030The [facility] Physician GroupComment on above:Order Comment: Name Collection Type:: Clean- Voided MidstreamPerformed By: #### UA #### [place] [address] USAUrobilinogen,UrineNormalNormalNormalThe [facility] Physician GroupComment on above:Order Comment: Name Collection Type:: Clean- Voided MidstreamPerformed By: #### UA #### [place] [id number] USAUrobilinogen Test strip (U) [Mass/Vol]Ordered By: Grant Alvarenga on 21-64-6746Eauarviyqvzm (U) [Mass/Vol]Urobilinogen [Mass/volume] in Urine by Test stripNoMetroHealth Main Campus Medical CenterWBC Auto (Bld) [#/Vol] Ordered By: Grant Alvarenga on 05-65-5528IAV (Bld) [#/Vol]Leukocytes [#/volume] in Blood by Automated countLow3.8-11.6FVeterans Health AdministrationpH Test strip (U)Ordered By: Grant Alvarenga on 27-12-4376cN (U)pH of Urine by Test strip 5.0-9.0T[facility]carawas HospitalX-ray reportOrdered By: Fabio Oates on 60-01-5107Qufoh reportMERCY HEALTH ST[facility] [place] [facility] [address] [place] [address] XRay Report Signed Patient: Simin Caro MR#: [id number] : 1970 Acct:[id number] Age/Sex: 54 / F ADM Date: 5 Loc: [facility] Room: Type: REG CLI Attending Dr: Grant Alvarenga DO Copies to: [...] Oates Jr., D.OHarris09/01/2024 3:12 PM Dictation Location: [place] [address] Transcribed By: [facility] 09/01/24 151 Dictated By: Fabio Oates Jr, DO 09/01/24 1512 Signed By: 09/01/24 [facility]2 [facility] HospitalXR knee LT 3V - NOT FOR ER USEon [id number] knee LT 3V - NOT FOR ER USEMERCY HEALTH ST[facility] [place] [facility] [place] [address] XRay Report Signed Patient: Simin Caro MR#: [id number] : 1970 Acct:[id number] Age/Sex: 54 / F ADM Date: 09/01/24 Loc: [facility] Room: Type: REG CLI Attending Dr: Grant Alvarenga DO Copies to: [...] Oates Jr., D.OHarris09/01/2024 3:12 PM Dictation Location: [place] [address] Transcribed By: [facility] 09/01/24 1512 Dictated By: Fabio Oates Jr, DO 09/01/24 151 Signed By: 09/01/24 [facility] HospitalXR FOOT RT MIN 3 VIEWSon 82-60-9887JA FOOT RT MIN 3 VIEWSEXAM: XR FOOT RT MIN 3 VIEWS HISTORY: [...] Electronically authenticated by: Elizabeth INFANTE Date: 2022-11-10 23:57[facility] KIDNEYS BLADDERon [id number] KIDNEYS BLADDERUS KIDNEYS BLADDER EXAM DATE: 09/23/2022 6:34 AM MST COMPARISON: None available. INDICATION: Recurrent UTI. TECHNIQUE: Real-time ultrasound scanning of the kidneys and bladder was performed by the plastic jig and fixture builder. Team Primary Care Physician static images are submitted for review. FINDINGS: [...] Electronically authenticated by: NEEL WEBBER Date: 2022-09-23 14:49NoOhioHealth Van [facility]ert Hospital AUTO DIFFon [id number] #0.0 103/ulNormal0.0-0.1The [facility] HospitalComment on above:Performed By: #### CBC #### [facility] [address] [address] [address] Arianna HamlinBasophils/100 WBC (Bld)0.3 %Normal0.2-2.0[facility] Comment on above:Performed By: #### CBC #### [facility] [address] [place] [address] [address] Arianna Salamanca #0.0 103/ulNormal0.0-0.7The [facility] HospitalComment on above: Performed By: #### CBC #### [facility] [address] [place] [address] [address] Arianna Pérezosinophils/100 WBC (Bld)0.1 %Critically low0.9-7.0The [facility] HospitalComment on above:Performed By: #### CBC #### [facility] [address] [place] [address] [address] Arianna Pérezrythrocyte distribution width (RBC) [Ratio]12.2 %Aunuie21.0-15.0 The [facility] HospitalComment on above:Performed By: #### CBC #### [facility] [address] [address] [address] Arianna HamlinHematocrit (Bld) [Volume fraction]35.9 %Critically low36.0-48.0 [facility] CenterComment on above:Performed By: #### CBC #### [facility] [address] [place] [address] Dr. Arianna HamlinHemoglobin (Bld) [Mass/Vol]12.0 g/sXNvputp32.0-16.0The [facility] HospitalComment on above:Performed By: #### CBC #### [facility] [address] [place] [address] Dr. Arianna Quezada #0.02 10e3/ulNormal0.00-0.03The [facility] HospitalComment on above:Performed By: #### CBC #### [facility] [address] [place] [address] Dr. Arianna Quezada %0.3 %Normal0.0-0.5The [facility] HospitalComment on above: Performed By: #### CBC #### [facility] [address] [place] [address] Dr. Arianna Gonzalez #1.8 103/ulNormal1.2-3.8The [facility] HospitalComment on above:Performed By: #### CBC #### [facility] [address] [place] [address] Dr. Arianna Morillohocytes/100 WBC (Bld)22.8 %Nwxcma42.5-60.0The [facility] HospitalComment on above:Performed By: #### CBC #### [facility] [address] [place] [address] Dr. Arianna NicholsUAL DIFF REQNONormalThe [facility] HospitalComment on above: Performed By: #### CBC #### [facility] [address] [place] [address] Dr. Arianna Serrano (RBC) [Entitic mass]27.8 kxRptgxu50.7-34.0The [facility] HospitalComment on above:Performed By: #### CBC #### [facility] [address] [place] [address] Dr. Arianna Serrano (RBC) [Mass/Vol]33.4 g/uFLijzpi87.9-35.2The [facility] HospitalComment on above:Performed By: #### CBC #### [facility] [address] [place] [address] Dr. Arianna Serrano (RBC) [Entitic vol]83.1 pZChpdil95.0-99.0The [facility] HospitalComment on above:Performed By: #### CBC #### [facility] [address] [address] [address] Arianna Carpenter #0.9 103/ulCritically high0.3-0.8The [facility] Comment on above:Performed By: #### CBC #### [facility] [address] [place] [address] Dr. Arianna Avilaocytes/100 WBC (Bld)10.8 %Normal1.7-12.0The [facility] Comment on above:Performed By: #### CBC #### [facility] [address] [place] [address] Dr. Arianna March #5.2 103/ulNormal1.4-6.5The [facility] HospitalComment on above:Performed By: #### CBC #### [facility] [address] [place] [address] Dr. Arianna Khanutrophils/100 WBC (Bld)65.7 %Msebuu65.0-75.0The [facility] HospitalComment on above:Performed By: #### CBC #### [facility] [address] [place] [address] Dr. Arianna Gomez mean volume (Bld) [Entitic vol]10.2 fLNormal9.5-13.5The [facility] HospitalComment on above:Performed By: #### CBC #### [facility] [address] [place] [address] Dr. Arianna HamlinPLT243 103/nkXawmmp587-608Igr [facility] HospitalComment on above: Performed By: #### CBC #### [facility] [address] [place] [address] Dr. Arianna HamlinRBC4.32 106/ulNormal4.20-5.40The [facility] HospitalComment on above:Performed By: #### CBC #### [facility] [address] [place] [address] Dr. Arianna HamlinWBC7.9 103/ulNormal4.0-11.0The [facility] HospitalComment on above: Performed By: #### CBC #### [facility] [address] [address] [address] Arianna aHmlinPROF CHEM 8 (BAS METB)on 16-05-3818Xyohx gap [Moles/Vol]10.8 mmol/LNormalThe [facility] HospitalComment on above:Performed By: #### BMP #### [facility] [address] [address] [address] Arianna HamlinCalcium [Mass/Vol]9.0 mg/dLNormal8.5-10.1The [facility] Comment on above:Performed By: #### BMP #### [facility] [address] [place] [address] Dr. Arianna HamlinChloride [Moles/Vol]101 mmol/SQqfdqq62-902Qpc [facility] Comment on above:Performed By: #### BMP #### [facility] [address] [place] [address] Dr. Arianna HamlinCO2 [Moles/Vol]30.8 mmol/XUvrtdm84.0-32.0The [facility] Comment on above:Performed By: #### BMP #### [facility] [address] [place] [address] Dr. Arianna HamlinCreatinine [Mass/Vol]0.79 mg/dLNormal0.55-1.02The [facility] HospitalComment on above:Performed By: #### BMP #### [facility] [address] [place] [address] Dr. Arianna PérezGFR-AF PAKISTANI>60Normal>=60The [facility] HospitalComment on above:Performed By: #### BMP #### [facility] [address] [address] [address] Arianna PérezGFR-NON AF PAKISTANI>60Normal>=60The [facility] HospitalComment on above:Performed By: #### BMP #### [facility] [address] [address] [address] Arianna HamlinGlucose [Mass/Vol]110 mg/dLCritically xbyz47-485Kbm [place] HospitalComment on above:Performed By: #### BMP #### [facility] [address] [address] [address] Arianna HamlinPotassium [Moles/Vol]3.6 mmol/LNormal3.5-5.1[facility] Comment on above:Performed By: #### BMP #### [facility] [address] [address] [address] Arianna HamlinSodium [Moles/Vol]139 mmol/PGynfdz223-023Nno [facility] Comment on above:Performed By: #### BMP #### [facility] [address] [address] [address] Arianna HamlinUrea nitrogen [Mass/Vol]8.0 mg/dLNormal7.0-18.0[facility] CenterComment on above:Performed By: #### BMP #### [facility] [address] [address] [address] Arianna HamlinUrea nitrogen/Creatinine [Mass ratio]10.1 mg/mgNormalThe [facility] HospitalComment on above:Performed By: #### BMP #### [facility] [address] [address] [address] Arianna Yee RANDOMon 01-86-7716Gxjilsjmq Ql (U)NegativeNormalNEGATIVEFirelands Regional Medical CenterComment on above:Performed By: #### CBC #### [facility] [address] [address] [address] Arianna HamlinClarity (U)CLEARNormalCLEARThe [facility] HospitalComment on above: Performed By: #### CBC #### [facility] [address] [address] [address] Arianna HamlinGlucose Ql (U)NegativeNormalNEGATIVEFirelands Regional Medical CenterComment on above:Performed By: #### CBC #### [facility] [address] [address] [address] Arianna HamlinHemoglobin Ql (U)NegativeNormalNEGOhio State East Hospital Comment on above:Performed By: #### CBC #### [facility] [address] [place] [address] Dr. Arianna Sargent Ql (U)NegativeNormalNEGATIVEThe [facility] HospitalComment on above:Performed By: #### CBC #### [facility] [address] [place] [address] Dr. Arianna HamlinLEUKOCYTESMODERATEAbnormalNEGATIVEThe [facility] HospitalComment on above:Performed By: #### CBC #### [facility] [address] [place] [address] Dr. Arianna Browntrite Ql (U)NegativeNormalNEGATIVEThe [place] HospitalComment on above:Performed By: #### CBC #### [facility] [address] [place] [address] Dr. Arianna HamlinpH (U)7.0 [pH]Normal5-9The [facility] HospitalComment on above: Performed By: #### CBC #### [facility] [address] [place] [address] Dr. Arianna HamlinSPEC GRAVITY1.256Fmblhq1.005-<=1.025The [facility] HospitalComment on above:Performed By: #### CBC #### [facility] [address] [place] [address] Dr. Arianna HamlinUA PROTEINNegativeNormalNEGATIVE/ TRACEThe [facility] Comment on above:Performed By: #### CBC #### [facility] [address] [place] [address] Dr. Arianna Vossbilinogen Qn (U)0.2 {Ayden'U}/dLNormal0.2 - 1.0The [facility] HospitalComment on above:Performed By: #### CBC #### [facility] [address] [place] [address] Dr. Arianna HamlinXR FOOT RT 2Von [id number] FOOT RT 2VEXAM: XR FOOT RT 2V HISTORY: Pain COMPARISON: 06/20/2022 TECHNIQUE: 3 minutes of fluoroscopy. 41 fluoroscopic images FINDINGS: Fluoroscopic images demonstrate subtalar fusion with 2 screws. Medial midfoot hindfoot fusion utilizing a plate, surgical staple and multiple screws. Anatomic alignment. IMPRESSION: Intraprocedural images demonstrating medial foot and subtalar fusion Electronically authenticated by: BARBARA HERNANDEZ Date: 2022-08-15 08:59[facility] HospitalPOINT OF CARE GLUCOSEon [id number] [Mass/Vol]138 mg/dL Critically fasv17-047RppFirelands Regional Medical CenterComment on above:Performed By: #### POCGLUC #### [facility] [address] [place] [address] Dr. Arianna HamlinGlucose [Mass/Vol]94 mg/xIUuywrd12-435GcsFirelands Regional Medical Center Comment on above:Performed By: #### POCGLUC #### [facility] [address] [place] [address] Dr. Arianna Aparicio AUTO DIFFon [id number] #0.0 103/ulNormal0.0-0.1[facility] CenterComment on above:Performed By: #### CBC #### [facility] [address] [place] [address] Dr. Arianna HamlinBasophils/100 WBC (Bld)0.7 %Normal0.2-2.0[facility] Comment on above:Performed By: #### CBC #### [facility] [address] [place] [address] Dr. Arianna Salamanca #0.1 103/ulNormal0.0-0.7The [facility] HospitalComment on above: Performed By: #### CBC #### [facility] [address] [place] [address] Dr. Arianna Pérezosinophils/100 WBC (Bld)1.3 %Normal0.9-7.0[facility] Comment on above:Performed By: #### CBC #### [facility] [address] [place] [address] Dr. Arianna Pérezrythrocyte distribution width (RBC) [Ratio]12.3 %Qcdrit25.0-15.0 [facility] CenterComment on above:Performed By: #### CBC #### [facility] [address] [place] [address] Dr. Arianna HamlinHematocrit (Bld) [Volume fraction]38.4 %Vcyaxz07.0-48.0The [facility] HospitalComment on above:Performed By: #### CBC #### [facility] [address] [place] [address] Dr. Arianna HamlinHemoglobin (Bld) [Mass/Vol]13.2 g/pPSicvrd15.0-16.0The [facility] HospitalComment on above:Performed By: #### CBC #### [facility] [address] [place] [address] Dr. Arainna HamlinIG #0.01 10e3/ulNormal0.00-0.03The [facility] HospitalComment on above:Performed By: #### CBC #### [facility] [address] [place] [address] Dr. Arianna HamlinIG %0.2 %Normal0.0-0.5The [facility] HospitalComment on above: Performed By: #### CBC #### [facility] [address] [place] [address] Dr. Arianna MorilloH #1.8 103/ulNormal1.2-3.8The [facility] HospitalComment on above:Performed By: #### CBC #### [facility] [address] [place] [address] Dr. Arianna Crandallmphocytes/100 WBC (Bld)30.8 %Bfzomi75.5-60.0The [facility] HospitalComment on above:Performed By: #### CBC #### [facility] [address] [place] [address] Dr. Arianna HamlinMANUAL DIFF REQNONormalThe [facility] HospitalComment on above: Performed By: #### CBC #### [facility] [address] [place] [address] Dr. Arianna Jones (RBC) [Entitic mass]27.7 gmYnaxrx66.7-34.0The [facility] HospitalComment on above:Performed By: #### CBC #### [facility] [address] [place], [place] [address] Dr. Arianna SerranoHC (RBC) [Mass/Vol]34.4 g/fNThseti77.9-35.2The [facility] HospitalComment on above:Performed By: #### CBC #### [facility] [address] [place] [address] Dr. Arianna SerranoV (RBC) [Entitic vol]80.7 fLCritically low81.0-99.0The [facility] HospitalComment on above:Performed By: #### CBC #### [facility] [address] [place] [address] Dr. Arianna Carpenter #0.4 103/ulNormal0.3-0.8The [facility] HospitalComment on above:Performed By: #### CBC #### [facility] [address] [place] [address] Dr. Arianna Avilaocytes/100 WBC (Bld)7.1 %Normal1.7-12.0The [facility] Comment on above:Performed By: #### CBC #### [facility] [address] [place] [address] Dr. Arianna March #3.6 103/ulNormal1.4-6.5The [facility] HospitalComment on above:Performed By: #### CBC #### [facility] [address] [place] [address] Dr. Arianna Khanutrophils/100 WBC (Bld)59.9 %Azmcem24.0-75.0The [facility] HospitalComment on above:Performed By: #### CBC #### [facility] [address] [place] [address] Dr. Arianna Campbelllet mean volume (Bld) [Entitic vol]9.5 fLNormal9.5-13.5The [facility] HospitalComment on above:Performed By: #### CBC #### [facility] [address] [place] [address] Dr. Arianna EncarnacionT248 103/ahPequcc544-968Jfy [facility] HospitalComment on above: Performed By: #### CBC #### [facility] [address] [place] [address] Dr. Arianna HamlinRBC4.76 106/ulNormal4.20-5.40The [facility] HospitalComment on above:Performed By: #### CBC #### [facility] [address] [place] [address] Dr. Arianna HamlinWBC5.9 103/ulNormal4.0-11.0The [facility] HospitalComment on above: Performed By: #### CBC #### [facility] [address] [place] [address] Dr. Arianna HamlinCovid-19 PCR (CVDTB)on 75-11-7690TDPU-CoV-2 (COVID-19) RNA RICHARD+probe Ql (Unsp spec)Not detectedNormalNOT DETECTEDThe [facility] Comment on above:Result Comment: This test is not yet approved or cleared by the [place] FDA. When there are no FDA-approved or cleared tests available, and other criteria are met, FDA can make tests available under an emergency access mechanism called an Emergency Use Authorization (EUA). The EUA for this test is supported by the Validation Scientist of Health and Human Service's (HHS's) declaration that circumstances exist to justify the emergency use of in vitro diagnostics for the detection and/or diagnosis of the virus that causes COVID- 19. This EUA will remain in effect (meaning [...] of clinical signs and symptoms consistent with SARS-CoV-2.Performed By: #### CVDTBH #### [facility] [address] [place] [address] Dr. Arinana HamlinPRORoger CHEM 8 (BAS METB)on 58-75-7834Uxlis gap [Moles/Vol]10.1 mmol/LNormalThe [facility] HospitalComment on above:Performed By: #### BMP #### [facility] [address] [address] [address] Arianna HamlinCalcium [Mass/Vol]9.2 mg/dLNormal8.5-10.1The [facility] Comment on above:Performed By: #### BMP #### [facility] [address] [address] [address] Arianna HamlinChloride [Moles/Vol]103 mmol/BMrhtna27-203Nqo [facility] Comment on above:Performed By: #### BMP #### [facility] [address] [place] [address] Dr. Arianna HamlinCO2 [Moles/Vol]30.7 mmol/LGalski96.0-32.0The [facility] Comment on above:Performed By: #### BMP #### [facility] [address] [place] [address] Dr. Arianna HamlinCreatinine [Mass/Vol]0.86 mg/dLNormal0.55-1.02The [facility] HospitalComment on above:Performed By: #### BMP #### [facility] [address] [place] [address] Dr. Keller ChangEGFR-AF PAKISTANI>60Normal>=60The [facility] HospitalComment on above:Performed By: #### BMP #### [facility] [address] [place] [address] Dr. Arianna PérezGFR-NON AF PAKISTANI>60Normal>=60The [facility] HospitalComment on above:Performed By: #### BMP #### [facility] [address] [place] [address] Dr. Arianna HamlinGlucose [Mass/Vol]77 mg/sPVovpkq21-639GlcFirelands Regional Medical Center Comment on above:Performed By: #### BMP #### [facility] [address] [place] [address] Dr. Arianna HamlinPotassium [Moles/Vol]3.8 mmol/LNormal3.5-5.1The [facility] Comment on above:Performed By: #### BMP #### [facility] [address] [place] [address] Dr. Yilan ChangSodium [Moles/Vol]140 mmol/UKgxupc388-412VniFirelands Regional Medical Center Comment on above:Performed By: #### BMP #### [facility] [address] [address] [address] Arianna HamlinUrea nitrogen [Mass/Vol]8.0 mg/dLNormal7.0-18.0[facility] Medical CenterComment on above:Performed By: #### BMP #### [facility] [address] [address] [address] Arianna HamlinUrea nitrogen/Creatinine [Mass ratio]9.3 mg/mgNormalThe [facility] HospitalComment on above:Performed By: #### BMP #### [facility] [address] [place] [address] Dr. Arianna HamlinCovid-19 PCR ([facility])on [id number]-CoV-2 (COVID-19) RNA RICHARD+probe Ql (Unsp spec)Not detectedNormalNOT DETECTEDThe [facility] Comment on above:Result Comment: This test is not yet approved or cleared by the [place] FDA. When there are no FDA-approved or cleared tests available, and other criteria are met, FDA can make tests available under an emergency access mechanism called an Emergency Use Authorization (EUA). The EUA for this test is supported by the Validation Scientist of Health and Human Service's (HHS's) declaration that circumstances exist to justify the emergency use of in vitro diagnostics for the detection and/or diagnosis of the virus that causes COVID- 19. This EUA will remain in effect (meaning [...] of clinical signs and symptoms consistent with SARS-CoV-2.Performed By: #### BMP #### [facility] [address] [place] [address] Dr. Arianna HamlinMRI ANKLE RT WO CONon [id number] ANKLE RT WO CONEXAM: MRI ANKLE RT WO CON HISTORY: Dysfunction of posterior tibial tendon. [...] Electronically authenticated by: DALTON ALVARENGA Date: 2022-06-24 12:09NormalThe [facility] PYLORI TISSUEon 05-17-2022H PYL TISSUE, UREASENegativeNormal NEGATIVEThe [facility] HospitalComment on above:Performed By: #### BMP #### [facility] [address] [place] [address] Dr. Arianna HamlinCovid-19 PCR ([facility])on [id number]-CoV-2 (COVID-19) RNA RICHARD+probe Ql (Unsp spec)Not detectedNormalNOT DETECTEDThe [facility] Comment on above:Result Comment: This test is not yet approved or cleared by the [place] FDA. When there are no FDA-approved or cleared tests available, and other criteria are met, FDA can make tests available under an emergency access mechanism called an Emergency Use Authorization (EUA). The EUA for this test is supported by the [place] of Health and Human Service's (HHS's) declaration that circumstances exist to justify the emergency use of in vitro diagnostics for the detection and/or diagnosis of the virus that causes COVID- 19. This EUA will remain in effect (meaning [...] of clinical signs and symptoms consistent with SARS-CoV-2.Performed By: #### CVDTBH #### [facility] [address] [place], [place] [address] Dr. Arianna Norwood by IFAon [id number] Antibodies, IFANegativeNormal The [facility] HospitalComment on above:Result Comment: Negative <1:80 Borderline 1:80 Positive >1:80 ICAP nomenclature: AC-0 For more information about Hep-2 cell patterns use ANApatterns.org, the official website for the International Consensus on Antinuclear Antibody (FLORINA) Patterns (ICAP).Performed By: #### BMP #### [facility] [address] [place] [address] Dr. Arianna Lafleur URINEon [id number] URINEIsolate 1 Escherichia coli >100,000 cfu/mL of ORGANISM 1 Escherichia coli ANTIBIOTIC M.I.C RX STATUS Ampicillin 4 S C Ampicillin/Sulbactam <=2 S C Piperacillin/Tazobactam <=4 S C Cefazolin <=4 S C Ceftazidime <=1 S C Ceftriaxone <=1 S C Ertapenem <=0.5 S C Imipenem <=0.25 S C Amikacin <=2 S C Gentamicin <=1 S C Tobramycin <=1 S C Ciprofloxacin <=0.25 S C Levofloxacin <=0.12 S C Nitrofurantoin <=16 S C Trimethoprim/Sulfamethoxazole <=20 S CNormalThe [facility] HospitalComment on above:Performed By: #### CBC #### [facility] [address] [place] [address] Dr. Arianna HamlinANTISTREPTOLYSIN O AB (ASO)on [id number] O Ab45.8 IU/mLNormal0.0-200.0The [facility] HospitalComment on above:Performed By: #### CBC #### [facility] [address] [place] [address] Dr. Arianna HamlinRHEUMATOID FACTORon [id number] Latex Turbid.<10.0Normal<14.0The [facility] HospitalComment on above:Performed By: #### BMP #### [facility] [address] [place] [address] Dr. Arianna HamlinCRClement [id number] [Mass/Vol]mg/LNormal<=1.0The [facility] HospitalComment on above:Performed By: #### CBC #### [facility] [address] [address] [address] Arianna Yee RANDOM W/MICROSCOPICon [id number]G SEENFirelands Regional Medical CenterComment on above:Performed By: #### UAMIC #### [facility] [address] [address] [address] Arianna HamlinBilirubin Ql (U)NegativeNormalNEGATIVEMary Rutan Hospital on above:Performed By: #### UAMIC #### [facility] [address] [address] [address] Arianna HamlinCASTNONE SEENNormalNONE SEENFirelands Regional Medical CenterComment on above:Performed By: #### UAMIC #### [facility] [address] [place] [address] Dr. Arianna HamlinClarity (U)CLEARNormalCLEARFirelands Regional Medical CenterComment on above: Performed By: #### UAMIC #### [facility] [address] [place] [address] Dr. Arianna Kendalllor (U)LT. YELLOWNormalYCentervilleComment on above:Performed By: #### UAMIC #### [facility] [address] [address] [address] Arianna HamlinCrystals LM Nom (Urine sed)NONE SEENNormalNONE SEENFirelands Regional Medical CenterComment on above:Performed By: #### UAMIC #### [facility] [address] [address] [address] Keller ChangEpithelial cells LM Ql (Urine sed)FEWAbnormalNONE SEEN /RAREFirelands Regional Medical CenterComment on above:Performed By: #### UAMIC #### [facility] [address] [place] [address] Dr. Arianna HamlinGlucose Ql (U)NegativeNormalNEGATIVEFirelands Regional Medical CenterComment on above:Performed By: #### UAMIC #### [facility] [address] [place] [address] Dr. Arianna HamlinHemoglobin Ql (U)SMALLAbnormalNEGATIVEFirelands Regional Medical Center Comment on above:Performed By: #### UAMIC #### [facility] [address] [place] [address] Dr. Arianna Sargent Ql (U)TRACEAbnormalNEGATIVEFirelands Regional Medical CenterComment on above:Performed By: #### UAMIC #### [facility] [address] [place] [address] Dr. Arianna HamlinLEUKOCYTESMODERATEAbnormalNEGATIVEFirelands Regional Medical CenterComment on above:Performed By: #### UAMIC #### [facility] [address] [place] [address] Dr. Arianna SanchezCOUSYUE SEENNormalNONE SEENFirelands Regional Medical CenterComment on above:Performed By: #### UAMIC #### [facility] [address] [place] [address] Dr. Arianna Bolanos Ql (U)PositiveAbnormalNEGOhio State East Hospital Comment on above:Performed By: #### UAMIC #### [facility] [address] [place] [address] Dr. Arianna HamlinpH (U)6.0 [pH]Normal5-9Fire[facility] Medical CenterComment on above: Performed By: #### UAMIC #### [facility] [address] [place] [address] Dr. Arianna HamlinTgwueURG0-3Mijsqdtb4-4Liy [facility]vue HospitalComment on above:Performed By: #### UAMIC #### [facility] [address] [place] [address] Dr. Arianna HamlinSPEC GRAVITY>=1.387Bbpkrsmg9.005-<=1.025[facility] Comment on above:Performed By: #### UAMIC #### [facility] [address] [place] [address] Dr. Arianna Yee PROTEINNegativeCraigNEGSELECT SPECIALTY HOSP[facility]/ TRACEFirelands Regional Medical Center Comment on above:Performed By: #### UAMIC #### [facility] [address] [place] [address] Dr. Yilan ChangUrobilinogen Qn (U)0.2 {Ayden'U}/dLNormal0.2 - 1.0The [facility] HospitalComment on above:Performed By: #### UAMIC #### [facility] [address] [place] [address] Dr. Arianna HamlinPvlwsUWD61-56BdhascfgSVWF SEENThe [facility] HospitalComment on above: Performed By: #### UAMIC #### [facility] [address] [place] [address] Dr. Arianna HamlinURIC ACID SERUMon 07-05-0349Miqgh [Mass/Vol]4.1 mg/dLNormal 2.6-6.0The [facility] HospitalComment on above:Performed By: #### URIC, CRP #### [facility] [address] [place] [address] Dr. Arianna HamlinCBC AUTO DIFFon 66-08-4005NTYM #0.1 103/ulNormal0.0-0.1The [facility] HospitalComment on above:Performed By: #### CBC #### [facility] [address] [place] [address] Dr. Arianna HamlinBasophils/100 WBC (Bld)0.9 %Normal0.2-2.0The [facility] Comment on above:Performed By: #### CBC #### [facility] [address] [place] [address] Dr. Arianna Salamanca #0.1 103/ulNormal0.0-0.7The [facility] HospitalComment on above: Performed By: #### CBC #### [facility] [address] [place] [address] Dr. Arianna Pérezosinophils/100 WBC (Bld)2.2 %Normal0.9-7.0The [facility] Comment on above:Performed By: #### CBC #### [facility] [address] [place] [address] Dr. Arianna Pérezrythrocyte distribution width (RBC) [Ratio]12.7 %Vjsczu92.0-15.0 The [facility] HospitalComment on above:Performed By: #### CBC #### [facility] [address] [address] [address] Arianna HamlinHematocrit (Bld) [Volume fraction]42.6 %Ltbfyo10.0-48.0The [facility] HospitalComment on above:Performed By: #### CBC #### [facility] [address] [place] [address] Dr. Arianna HamlinHemoglobin (Bld) [Mass/Vol]14.2 g/vMCyznrj33.0-16.0The [facility] HospitalComment on above:Performed By: #### CBC #### [facility] [address] [place] [address] Dr. Arianna Quezada #0.02 10e3/ulNormal0.00-0.03The [facility] HospitalCombr[facility] on above:Performed By: #### CBC #### [facility] [address] [place] [address] Dr. Arianna Quezada %0.4 %Normal0.0-0.5The [facility] HospitalComment on above: Performed By: #### CBC #### [facility] [address] [place] [address] Dr. Arianna Gonzalez #2.0 103/ulNormal1.2-3.8The [facility] HospitalCombronson lake[facility] on above:Performed By: #### CBC #### [facility] [address] [place] [address] Dr. Arianna Crandallmphocytes/100 WBC (Bld)38.1 %Uomgzv26.5-60.0The [facility] HospitalComment on above:Performed By: #### CBC #### [facility] [address] [place] [address] Dr. Arianna NicholsUAL DIFF REQNONormalThe [facility] HospitalComment on above: Performed By: #### CBC #### [facility] [address] [place] [address] Dr. Arianna Joens (RBC) [Entitic mass]28.1 okEtwigo91.7-34.0The [facility] HospitalComment on above:Performed By: #### CBC #### [facility] [address] [place] [address] Dr. Arianna Serrano (RBC) [Mass/Vol]33.3 g/pUWfndvc11.9-35.2The [facility] HospitalComment on above:Performed By: #### CBC #### [facility] [address] [place] [address] Dr. Arianna SerranoV (RBC) [Entitic vol]84.4 mVMomrjm80.0-99.0The [facility] HospitalComment on above:Performed By: #### CBC #### [facility] [address] [place] [address] Dr. Arianna Carpenter #0.4 103/ulNormal0.3-0.8The [facility] HospitalComment on above:Performed By: #### CBC #### [facility] [address] [place] [address] Dr. Arianna Avilaocytes/100 WBC (Bld)7.3 %Normal1.7-12.0The [facility] Comment on above:Performed By: #### CBC #### [facility] [address] [place] [address] Dr. Arianna March #2.7 103/ulNormal1.4-6.5The [facility] HospitalComment on above:Performed By: #### CBC #### [facility] [address] [place] [address] Dr. Arianna Khanutrophils/100 WBC (Bld)51.1 %Etkiif09.0-75.0The [facility] HospitalComment on above:Performed By: #### CBC #### [facility] [address] [place] [address] Dr. Arianna Campbelllet mean volume (Bld) [Entitic vol]9.8 fLNormal9.5-13.5The [facility] HospitalComment on above:Performed By: #### CBC #### [facility] [address] [place] [address] Dr. Arianna HamlinPLT276 103/hcDuzvcs109-987Aid [facility] HospitalComment on above: Performed By: #### CBC #### [facility] [address] [place] [address] Dr. Arianna HamlinRBC5.05 106/ulNormal4.20-5.40The [facility] HospitalComment on above:Performed By: #### CBC #### [facility] [address] [place] [address] Dr. Arianna HamlinWBC5.4 103/ulNormal4.0-11.0The [facility] HospitalComment on above: Performed By: #### CBC #### [facility] [address] [place] [address] Dr. Arianna Oleary 14(COMP METB)on 09-89-9506Bplqnal [Mass/Vol]4.2 g/dLNormal 3.4-5.0The [facility] HospitalComment on above:Performed By: #### BMP #### [facility] [address] [place] [address] Dr. Arianna HamlinAlbumin/Globulin [Mass ratio]1.3 {ratio}NormalThe [facility] HospitalComment on above:Performed By: #### BMP #### [facility] [address] [place] [address] Dr. Arianna Wylie [Catalytic activity/Vol]92 U/DAhqhhg54-204Lqp [facility] HospitalComment on above:Performed By: #### BMP #### [facility] [address] [place] [address] Dr. Arianna Frazier [Catalytic activity/Vol]25 U/FTdzmds38-75Fdf [facility] HospitalComment on above:Performed By: #### BMP #### [facility] [address] [place] [address] Dr. Arianna Drummond gap [Moles/Vol]10.4 mmol/LNormalThe [facility] on above:Performed By: #### BMP #### [facility] [address] [place] [address] Dr. Arianna Copeland [Catalytic activity/Vol]20 U/KKbprmn30-32Dio [facility] HospitalComment on above:Performed By: #### BMP #### [facility] [address] [address] [address] Arianna HamlinBilirubin [Mass/Vol]0.2 mg/dLNormal0.2-1.0[facility] Comment on above:Performed By: #### BMP #### [facility] [address] [address] [address] Arianna HamlinCalcium [Mass/Vol]9.0 mg/dLNormal8.5-10.1[facility] Comment on above:Performed By: #### BMP #### [facility] [address] [address] [address] Arianna HamlinChloride [Moles/Vol]103 mmol/BFevmmu08-381KpxFirelands Regional Medical Center Comment on above:Performed By: #### BMP #### [facility] [address] [address] [address] Arianna HamlinCO2 [Moles/Vol]29.7 mmol/OEqkddu70.0-32.0The [facility] Comment on above:Performed By: #### BMP #### [facility] [address] [address] [address] Arianna HamlinCreatinine [Mass/Vol]0.87 mg/dLNormal0.55-1.02The [facility] HospitalComment on above:Performed By: #### BMP #### [facility] [address] [address] [address] Arianna PérezGFR-AF PAKISTANI>60Normal>=60The [facility] HospitalComment on above:Performed By: #### BMP #### [facility] [address] [address] [address] Arianna PérezGFR-NON AF PAKISTANI>60Normal>=60The [facility] HospitalComment on above:Performed By: #### BMP #### [facility] [address] [address] [address] Arianna HamlinGlobulin (S) [Mass/Vol]3.3 g/dLNormalThe [facility] HospitalComment on above:Performed By: #### BMP #### [facility] [address] [address] [address] Arianna HamlinGlucose [Mass/Vol]99 mg/qIAgxgtl66-933PscFirelands Regional Medical Center Comment on above:Performed By: #### BMP #### [facility] [address] [address] [address] Arianna HamlinPotassium [Moles/Vol]4.1 mmol/LNormal3.5-5.1The [facility] Comment on above:Performed By: #### BMP #### [facility] [address] [address] [address] Arianna HamlinProtein [Mass/Vol]7.5 g/dLNormal6.4-8.2[facility] Comment on above:Performed By: #### BMP #### [facility] [address] [address] [address] Arianna HamlinSodium [Moles/Vol]139 mmol/OUyqcox467-030Ojp [facility] Comment on above:Performed By: #### BMP #### [facility] [address] [address] [address] Arianna HamlinUrea nitrogen [Mass/Vol]11.0 mg/dLNormal7.0-18.0The [facility] HospitalComment on above:Performed By: #### BMP #### [facility] [address] [address] [address] Arianna HamlinUrea nitrogen/Creatinine [Mass ratio]12.6 mg/mgNormalThe [facility] HospitalComment on above:Performed By: #### BMP #### [facility] [address] [address] [address] Arianna HamlinProvider Letteron [phone] Letter September 06, 2021 [address]O [address] [place] [phone] SIMIN CARO 1970 Dear Simin_ , We have been trying to reach you with no success. It is important that you return our call regarding your referral from Melinda Valentina _ upon receiving this letter. Also, at the time of your call, pleaseprovide us with your correct phone number. . Thank you for your prompt attention to this matter. Sincerely, General Surgery [phone] Health Miami Valley HospitalPhysician Referralon 08-25-2021 Physician [id number]#1.00CD:127Normal [facility] Vital Signs Date TimeVital SignValuePerforming MqudrqdydYpkwukdy62-66-6555 10:50-0500Body ktlishdsjts13.4 [degF][facility]02-18-2025 10:50-0500 Diastolic blood cttipjup70 mm[Hg][facility]02-18-2025 10:50-0500Heart rate70 /[facility]02-18-2025 10:50-0500Respiratory rate12 /[facility]02-18-2025 10:50-0160BoN3% (BldA) [Mass fraction]100 %[facility] 09-16-2024 10:50-0500Systolic blood ozytgorr273 mm[Hg][facility]02-18-2025 10:30-0500Inhaled oxygen flow rate2 L/[facility]02-18-2025 06:00-0500Body .75 cmT[facility]car[facility] Hospital02-18-2025 06:00-0500Body kgT[facility]carawas Hospital02-03-2025 11:02-0500Body xnzacn794.02 cmT[facility]car[facility]as Hospital 09-01-2024 11:02-0500Body mass index (BMI) [Ratio]37.7 kg/n9UakwwdsjdTuscarawas Hospital02-03-2025 11:02-0500Body qidvrd19.61 kgTuscarawas Hospital07-08-2022 12:15-0400Body ixpdrv807.02 cmJuin Colette Other [facility] [employer] Other 07-08-2022 12:15-0400Body mass index (BMI) [Ratio] 36.13 kg/k8Zlmfhq Colette Other [employer] Other 07-08-2022 12:15-0400Body yztjsf46.53 kgJustin Colette Other [employer] Other 07-01-2022 09:00-0400Body egnqci251.02 cmJustin Colette Other [employer] Other 07-01-2022 09:00-0400Body mass index (BMI) [Ratio] 36.13 kg/d6Uzvxgu Colette Other [employer] Other 07-01-2022 09:00-0400Body ojqdpe27.53 kgJustin Colette Other [employer] Other 04-04-2022 16:30-0400Body rsoqdb046.02 cmJustin Colette Other [employer] Other 04-04-2022 16:30-0400Body mass index (BMI) [Ratio] 37.02 kg/i6Qpfilr Colette Other [employer] Other 04-04-2022 16:30-0400Body xraqjz67.8 kgJustin Colette Other [employer] Other Encounters Encounter DateEncounter TypeCare ProviderFacilityStart: 03-11-2025 End: 33-75-7295Lktpjkt encounter procedureJustin Michelle Alvarenga [facility] Work Phone: Start: 03-11-2025 End: 46-45-2115yidveutmwvZgrctj Sue Cramer TIMBER SETTERMisty Work Phone: [facility] Work Phone: Start: 12-10-2024 End: 73-08-6103vojvbnlmrdYohjsq Cheryl Valentina TIMBER SETTER-C Work Phone: [facility] Work Phone: Start: 12-10-2024 End: 45-09-6531Lmhcnlx encounter procedureBkmichelle Valentina TIMBER SETTER-C Work Phone: [facility] Physician [facility] Work Phone: Start: 10-29-2024 End: 45-67-4165fvmdgotmagCUI [facility] Work Phone: Start: 10-29-2024 End: 38-32-4166Urciwuz encounter procedureTransylvania [facility] Phys[facility] Work Phone: Start: 10-01-2024 End: 23-00-6200digxeqenaeIKR [facility] Work Phone: Start: 10-01-2024 End: 46-10-5652Hqfeavd encounter procedureTransylvania Regional Hospital Physician [facility] Work Phone: Start: 09-16-2024 End: 78-40-1258Winbksftb to same day surgery [facility]Start: 09-16-2024 End: 56-38-6367ootgoasuwfGVH [facility] Work Phone: Start: 65-84-1976Ufv-patient / Non-visitTransylvania Regional Hospital Physician [facility] Work Phone: Start: 09-10-2024 End: 72-15-4788Gvembmc encounter procedureTransylvania [facility] Hospital Phys[facility] Work Phone: Start: 09-10-2024 End: 48-13-8148Mrmhhqzghm [facility] [place]Start: 25-21-1282Llqwvvsjgl [facility] [place]Start: 09-10-2024 End: 51-35-7982wfnlugbuseWIZ [facility] Work Phone: Start: 25-51-3448Mwrmqaalj for other preprocedural examinationJustin Michelle [facility] GroupStart: 09-04-2024 End: 51-34-2456Nusdlxp encounter procedureAultman [facility] Tue-Cjg-Hzarhzjs Testing Work Phone: Start: 09-04-2024 End: 29-22-4712exjguiosieABA [facility] Work Phone: Start: 59-27-2896Yqgagfjii for preprocedural laboratory examinationJustin Michelle [facility] GroupStart: 09-01-2024 End: 95-96-2963yrhorvztrrXEK [facility] Work Phone: Start: 09-01-2024 End: 86-30-4433Ezwmbfw encounter procedureGe[facility] Work Phone: Start: 12-19-2022 End: 40-89-6993xnvlouskfaOGBOFO CRAMERFacility:H6Xxzxv: 22-81-9115cgwazyirgj SARAH CRAMERFacility:L4Dpsds: 11-08-2022 End: 14-12-1182ebqihfkgoxHW NONE LISTED REQUESTFacility:D8Jttup: 10-18-2022 End: 80-90-0634dpgvslalnyRK NONE LISTED REQUESTFacility:T2Ckzzl: 09-28-2022 End: 13-42-1341fxrtgckrhxVRUZIGKX CULLENFacility:K4Bngpi: 09-23-2022 End: 76-44-1894bfcekhzwbiRN NONE LISTED REQUESTFacility:F9Thvie: 09-07-2022 End: 93-51-0807rmfxqoimfqBPFSUNOK CULLENFacility:P7Ddgjh: 08-14-2022 End: 92-06-1001hxdhefqiddKZ NONE LISTED REQUESTFacility:X7Mkshd: 08-10-2022 Encounter for preprocedural laboratory examinationPETriHealth Good Samaritan Hospitaltart: 06-70-4327gigygymowjKGZEZR CRAMERFacility:M7Ygezu: 08-08-2022 End: 08-39-0422wltibohchhFIIKIL CRAMERFacility:Q7Daouz: 08-08-2022 End: 02-54-3171Asnkfzvlo for preprocedural laboratory examinationPAMELA VALENTINA Facility:Y9Rqaum: 07-05-2022 End: 05-04-0466kymdpwooubYKURJA CRAMERFacility:G5Ypqes: 07-01-2022 End: 67-65-3059basidncladZAIYTE CRAMERFacility:C7Mmgyp: 06-28-2022 End: 10-45-3090yrxgceiwrsNPQQSZ CRAMERFacility:C6Siddl: 06-20-2022 End: 57-03-6475ikslfgszhfWKTXNP CRAMERFacility:T4Xsjnn: 06-14-2022 End: 06-51-8888gtvhgkzqkgKHAPDZ CRAMERFacility:X1Uckjo: 70-86-0476ymjmuqjvvc SARAH CRAMERFacility:J8Vbkhz: 05-17-2022 End: 67-55-3894ocldhymzogWMUOYJ CRAMERFacility:Q9Eyimo: 05-15-2022 End: 90-05-7210hziejfdunaOADPDI CRAMERFacility:P8Wtwqi: 05-08-2022 End: 24-37-3074mjbjnayetaXOUDZP CRAMERFacility:R1Tvcpt: 66-68-9490ayspufekts SARAH CRAMERFacility:Y5Zznme: 39-08-9918funcrlhyfkXMGRFS CRAMERFacility:H1 Start: 02-03-2022 End: 43-50-8733jvijpyuczyBrcbau Kelley Other [employer] Other Start: 44-38-0542Dtvaah follow up visit related to original pxLucíastbecky OseiG [facility] OrthopedicsStart: 01-27-2022 End: 55-32-0424uukprrlmiiPksadw Kelley Other [employer] Other Start: 62-27-9444Kqhrac outpatient visit 15 minutes Grant AlvarengaDEONNA [facility] OrthopedicsStart: 01-24-2022 End: 22-87-5266zkqjsuuzpkJYHSCT KELLEYFacility:M8Etlav: 10-31-2021 End: 52-01-2820ubgtbdwtmsCnosbo Colette Other [place] [employer] Other Start: 71-66-8297Tnpboi outpatient new 45 minutes Grant KelyasmanyDEONNA [facility] Procedures DateProcedureProcedure DetailPerforming ClinicianStart: 93-87-3777E-ray of left knee, three viewsSarah Montgomery NP-C Work Phone: Start: 30-39-8263A-ray of left knee, two viewsStart: 74-76-1268Gcock replacement of left knee jointStart: 37-42-0123W-ray of left knee, three views Plan of Treatment DateCare ActivityDetailAuthorStart: 02-66-0712Y-ray of left knee, three viewsXR knee LT 3V - NOT FOR ER USEProMedica Toledo Hospitaltart: 63-96-2894DI Knee - left 3 ViewsProMedica Toledo Hospitaltart: 86-47-4846Q-ray of left knee, two viewsXR knee LT 2VProMedica Toledo Hospitaltart: 34-30-3733TG Knee - left 2 ViewsProMedica Toledo Hospitaltart: 09-16-2024 End: 34-39-0275JgvttgyckAultman Orrville Hospital CenterStart: 22-52-3991XbbcypiddAultman Orrville Hospital CenterStart: 81-30-5817Qlhxmbdl admissionProMedica Toledo Hospitaltart: 71-68-8660Pmmxtetm therapy procedureProMedica Toledo Hospitaltart: 32-89-9381Flvrpdvz to occupational therapistProMedica Toledo Hospitaltart: 78-54-2855Y-ray of left knee, three viewsXR knee LT 3V - NOT FOR ER USEProMedica Toledo Hospitaltart: 72-48-3436NP Knee - left 3 ViewsTuscarawas HospitalAnion gap measurementTuscarawas HospitalBasophils [#/volume] in Blood by Automated [facility] CenterBasophils/100 leukocytes in Blood by Automated count [facility] HospitalEosinophils/100 leukocytes in Blood by Automated [facility] Medical CenterErythrocyte distribution width [Ratio] by Automated [facility] Medical CenterErythrocytes [#/volume] in BloodTuscarawas HospitalHematocrit [Volume Fraction] of [facility] HospitalHemoglobin [Mass/volume] in Blood [facility] HospitalLeukocytes [#/volume] corrected for nucleated erythrocytes in Blood by Automated counTuscarawas Hospital Leukocytes [#/volume] in BloodTuscarawas HospitalLymphocytes [#/volume] in Blood by Automated countTuscarawas Hospital Lymphocytes/100 leukocytes in Blood by Automated [facility] Medical CenterMCH [Entitic mass] by Automated [facility] MCHC [Mass/volume] by Automated countTuscarawas HospitalMCV [Entitic volume] by Automated [facility] CenterMonocytes [#/volume] in Blood by Automated [facility] Monocytes/100 leukocytes in Blood by Automated [facility] CenterNeutrophils [#/volume] in Blood by Automated [facility] CenterNeutrophils/100 leukocytes in Blood by Automated [facility] CenterNucleated erythrocytes [Presence] in Blood by Automated [facility] CenterPatient EducationKnow your [facility] Work Phone: Patient referralAultman Or[facility] Work Phone: Platelet mean volume [Entitic volume] in Blood by Automated [facility] Medical CenterPlatelets [#/volume] in Blood [facility] Immunizations Immunization DateImmunizationNotesCare RzmbqdczKjxyaimu14-68-8626mlpzxwtpr, injectable, quadrivalent, preservative freeJustin Colette Other [facility]06-05-2021COVID-19 Vaccine Yari - Documentation Purposes OnlyJustbecky Alvarenga Other [facility] Payers DatePayer CategoryPayerPolicy [id number] 2.840.1.576175.3.579.2.69108-09-9102Etulhfl0033738 2.0.1.160915.3.57[id number] 2.0.1.356036.3.579.2.08015-87-5874Vytsiro4091945 2.0.1.353766.3.57[id number] 2.840.1.342312.3.579.2.92465-74-6070Wbveirr1029642 2.0.1.289078.3.579.[id number] 2.0.1.465698.3.579.2.25063-07-0491Gqsgdzt6698705 2.0.1.801851.3.579.2.62455-18-4901Dbwlhfu4266939 2.840.1.211867.3.579.2.73393-64-9886Plfvxvd1675696 2.0.1.289650.3.579.2.63927-64-8956Dvnavnb3167499 2.0.1.548150.3.579.2.39632-18-2042Gjtcabf5027638 2.840.1.207515.3.579.2.96578-21-9051Waxawoi9305819 2.16.840.1.905903.3.579.2.31819-38-9161Irksfye4584023 2..0.1.107704.3.579.2.44890-46-1892Dikkwvp4788390 2..840.1.420979.3.579.[id number] 2.0.1.173104.3.579.2.13597-12-4302Fvwjjap8421736 2.0.1.907940.3.579.2.99277-63-0548Tyceght1202138 2.0.1.012022.3.579.2.94320-29-0817Ohcvpxs1756358 2.0.1.102567.3.579.2.71637-51-5351Ipjfeyq7084403 2.0.1.023776.3.579.2.67056-57-5813Btlognz4698364 2..1.610773.3.579.2.36810-22-2788Pchxkxu4224669 2.0.1.748034.3.579.2.60763-10-4024AjktRoosevelt General [id number] 2.0.8.500721.19204407-36-5661Smmb-zeoKswncck98484313 2.840.1.988053.3.579.2.404Quakyku50184372 2.16840.1.993080.3.579.2.531 Doybtsq26512034 2.16840.1.671010.3.579.2.300Hmjujxb30969349 2.16840.1.609432.3.579.2.925Heqmdsz18045971 2.840.1.834286.3.579.2.531 Social History DateTypeDetailFacilitySex Assigned At [facility] [employer] Other Tobacco smoking status NHISUnknown if ever smoked [facility] Work Phone: Start: 09-01-2024 End: 65-80-1658VprXoneqy (finding)[facility] Hospitaltart: 58-13-2635Nsn Assigned At [facility] Centertart: 09-04-2024 End: 98-45-3836Wqumeoa smoking status NHISEx-smoker (finding)[facility] Medical Equipment Procedure CodeEquipment CodeEquipment Original TextEquipment IdentifierDates Arthroplasty, knee, total, minimally invasiveTibial insert ()[id number] FDAStart: 16-39-8698Otfugnssvbgp, knee, total, minimally invasiveCoated knee femur prosthesis ()[id number] FDAStart: 71-23-9803Rkmgjqkgdfuw, knee, total, minimally invasiveCoated knee tibia prosthesis ()[id number] FDAStart: 09-16-2024 Goals DatePatient GoalDesired Activity/State Clinical Notes 10-31-2021 to 03-11-2025 Note Date & EfyrFetjObxklvwh58-86-8997 Evaluation note* Diagnosis Onset Date Resolution Status Admit Date Degenerative joint disease of left knee acuteAugust 2024 9:46amStatus post total left knee replacementacuteAugust 2024 9:46amTrigger finger, left middle fingeracuteAugust 2024 9:46am [facility] Work Phone: 1(367) 503-380203-05-2025 Evaluation note* Diagnosis Onset Date Resolution Status Admit Date Degenerative joint disease of left knee acuteMarch 2024 10:49amStatus post total left knee replacementacuteMarch 2024 10:49amDegenerative joint disease of left kneeacuteApril 2024 11:12amStatus post total left knee replacementacuteApril 2024 11:12am Degenerative joint disease of left kneeacuteMay 2024 1:43pmStatus post total left knee replacementacuteMay 2024 1:43pmTrigger finger, left middle fingeracuteMay 2024 1:43pm [facility] Work Phone: 1(548) 822-934402-03-2025 Evaluation note* Diagnosis Onset Date Resolution Status Admit Date Degenerative joint disease of left knee acuteFebruary 2024 10:34am [facility] Work Phone: 1(611) 116-305402-03-2025 Evaluation note* Diagnosis Onset Date Resolution Status Admit Date Degenerative joint disease of left knee acuteFebruary 2024 10:34amDegenerative joint disease of left kneeacute September 10, 2024 10:08am [facility] Work Phone: 1(135) 849-629802-03-2025 Evaluation note* Diagnosis Onset Date Resolution Status Admit Date Degenerative joint disease of left knee acuteFebruary 2024 10:34amDegenerative joint disease of left kneeacute September 10, 2024 10:08amDegenerative joint disease of left kneeacuteMarch 2024 10:49amStatus post total left knee replacementacuteMarch 2024 10:49am [facility] Work Phone: 1([phone]) 654-224502-03-2025 Evaluation note* Diagnosis Onset Date Resolution Status Admit Date Degenerative joint disease of left knee acuteFebruary 2024 10:34amDegenerative joint disease of left kneeacute September 10, 2024 10:08amDegenerative joint disease of left kneeacuteMarch 2024 10:49amStatus post total left knee replacementacuteMarch 2024 10:49amDegenerative joint disease of left kneeacuteApril 2024 11:12amStatus post total left knee replacementacuteApril 2024 11:12am [facility] Work Phone: 1(878) 673-531005-23-2023 NotePROCEDURE: XR FOOT RT MIN 3 VIEWS [...] authenticated by: LARISSA CHOI Date: 2022-12-19 11:40[id number] NotePROCEDURE: XR FOOT RT MIN 3 VIEWS [...] Electronically authenticated by: TERI KAY Date: 2022-10-19 08:47[facility] [id number] NotePROCEDURE: XR FOOT RT MIN 3 VIEWS [...] Electronically authenticated by: BARBARA HERNANDEZ Date: 2022-09-28 16:30[facility]02-10-2023 NotePROCEDURE: XR FOOT RT MIN 3 VIEWS [...] Electronically authenticated by: TERI KAY Date: 2022-09-08 07:03[facility]01-17-2023 NotePROCEDURE: XR FOOT RT MIN 3 VIEWS, [...] Electronically authenticated by: BARBARA HERNANDEZ Date: 2022-08-15 08:58[facility]01-17-2023 NotePROCEDURE: XR FOOT RT MIN 3 VIEWS, [...] Electronically authenticated by: BARBARA HERNANDEZ Date: 2022-08-15 08:58[facility]11-17-2022 NotePROCEDURE: XR FOOT RT MIN 3 VIEWS COMPARISON: 09/08/2021 HISTORY: Pain in right foot FINDINGS: BONES:No acute fracture or dislocation. Stable ncra-xa-tmvgitzm degenerative change with joint space narrowing marginal osteophyte formation most significant in the midfoot SOFT TISSUES:Negative. No visible soft tissue swelling. EFFUSION:None visible. OTHER: Negative. IMPRESSION: Stable degenerative changes Electronically authenticated by: BARBARA HERNANDEZ Date: 2022-06-15 08:48[facility]07-08-2022 Evaluation note* Encounter Date Diagnosis Assessment Notes Treatment Notes Treatment Clinical Notes Jan, Carpal tunnel syndrome of left w rist (ICD-10 - G56.02) 1 week s/p left [...] well. We discussed progressing activity as tolerated. Jan,ther specified postprocedural states (ICD-10 - Z98.890) Jan,Trigger middle finger of right hand (ICD-10 - M65.331)Currently resolved. Continue to monitor [employer] Other 07-01-2022 Evaluation note* Encounter Date Diagnosis Assessment Notes Treatment Notes Treatment Clinical Notes Jan, Right hip pain (ICD-10 - M25.551 ) Jan,Trochanteric bursitis, right hip (ICD-10 - M70.61)Today Simin has trochanteric bursitis on the right side. We discussed treatment options including cortisone injection which she would like to proceed with. Today under sterile technique the patient'sright hip greater trochanter bursa was injected with [...] no adverse reactions. Patient given AAOS handout Jan,arpal tunnel syndrome of left wrist (ICD-10 - G56.02)POD #1 s/p left carpal tunnel release. Postoperative dressing is benign and intact. Maintain this until her next week follow-up Jan, specified postprocedural states (ICD-10 - Z98.890) Jan,[ ] Follow up in [ ] [days, weeks, months, years] [No xrays are needed, repeat radiographs] [ ] Continue mobilization [without restrictions, NWB, TDWB, ROM limitations]; this was encouraged and exercises were reviewed in the office today. [ ] See orders for this visit as documented in the electronic medical record. [employer] Other 06-30-2022 History general Narrative - Reported* Type Description Date Medical History Hypertension Medical Historychronic depressionMedical Historyhearing lossSurgical History hysterectomy-[id number] Historyleft carpal tunnel release by Dr. Alvarenga 01/26/2022 [facility] [employer] Other 04-04-2022 Evaluation note* Encounter Date Diagnosis Assessment Notes Treatment Notes Treatment Clinical Notes Oct, Carpal tunnel syndrome of left w rist (ICD-10 - G56.02) Simin presents with left [...] be followed by right carpal tunnel release Oct,arpal tunnel syndrome of right wrist (ICD-10 - G56.01)Findings and diagnosis of carpal tunnel syndrome have been discussed at length with the patient. Wehave discussed how it is the most common [...] of pinch strength in approximately 6 weeks, student strength recovery at about 12 weeks, and [...] management have been discussed in detail and non- operative management was given as an option. The [...] wound closure problems and infection were discussed. Jacquie- operative risks including infection, bleeding, wound healing problems, and need for further surgery were discussed. It was discussed that there is a possibility of blood transfusion with any surgical procedure and the risks involved in recei ving a blood transfusion. Possibility of, and need for, future bracing or DME use, physical or occupational therapy, mental therapy, rehabilitation, pain management and need for secondary procedures was discussed. I have warned against smoking and the use of tobacco products due to the risks associated with them, in particular, poor healing. 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 I have advised to follow all post-operative instructions in order to obtain the best outcome. Informed consent has been verbally affirmed and signed as indicated. 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 We discussed static splinting for comfort and have applied astack splint today. Patient given stax splint Oct,therSee orders for this visit as documented in the electronic medical record. [employer] Other Evaluation note* Diagnosis Onset Date Resolution Status Admit Date Degenerative joint disease of left knee acuteFebruary 2024 10:34am [facility] Work Phone: Evaluation note* Diagnosis Onset Date Resolution Status Admit Date Degenerative joint disease of left knee acuteAugust 2024 9:46amStatus post total left knee replacementacuteAugust 2024 9:46amTrigger finger, left middle fingeracuteAugust 2024 9:46am [facility] Work Phone: History general Narrative - Reported* Type Description Date Medical History Hypertension Medical Historychronic depressionMedical Historyhearing lossSurgical History hysterectomy-[id number] [employer] Other Hospital Discharge instructions Additional Instructions Joint Replacement Discharge Instructions: Your safety during your recovery process is important to us. Please seek immediate emergency care if you have sudden chest pain or shortness of breath. Additionally, please call our office at [phone] should any of the following occur: wound [...] over time or it could last forever. DEMARIO hose (stockinette): Wear them for 4 weeks [...] and/or laxatives as directed. You may take fqvl-isr-ityupru Benadryl if itching occurs without a rash or hives. Icing and elevation will help relieve pain as well, do not underestimate the power of ice and elevation. We do recommend that you stop taking narcotic pain medications by 4-6 weeks after surgery and if necessary, continue to use anti-inflammatory medications such as Mobic (meloxicam), Celebrex (celecoxib), or an rnou-zfo-hwsxrth medication (Aleve, Motrin, Ibuprofen, etc). Driving an [...] feel free to call our office at [phone]. You are a priority of ours and we will not be upset with you if you call. We would much rather you call to confirm aspects of your recovery process as opposed to possibly hindering your recovery with inappropriate care. We are committed to providing you with the best care possible. Dr. Grant Alvarenga [facility] [address] [place] [address] [email or web address]/ [facility] Work Phone: Reason for referral (narrative)No reason for referral information availableC[facility] Work Phone: Summary Purpose Family History No Family History Records Found Relationship Condition Age at Onset Recorded Date/T holley father Unknown Relationship Condition Age at Onset Recorded Date/T holley father Unknown Myocardial infarctionUnknownMalignant neoplasm of boneUnknownmotherHeart disease UnknownFibromyalgiaUnknown Advance Directives No Advanced Directives Records Found Advance Directive Response Recorded Date/ Time Advance Directives No January 27 9:20am Advance Directive Response Recorded Date/ Time Advance Directives No January 27 10:20am Chief Complaint and Reason for Visit Chief Complaint Admit Date 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 NX September 01 10:34am M25.562 - Pain in left knee August 10:38am Reason for Visit Admit Date Degenerative joint disease of left knee September 01, 2024 10:34am Chief Complaint Admit Date 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 NX September 01 10:34am M25.562 - Pain in left knee August 10:38am Knee Pain September 04, 2024 1 1:21am Chief Complaint Admit Date 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 NX September 01 10:34am [...] 10, 2024 10:08am Chief Complaint Admit Date 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 NX September 01 10:34am M25.562 - Pain in left knee August 10:38am Knee Pain September 04, 2024 1 1:21am Pre-Op LTK September 10, 2024 9:26am H & P LEFT TOTAL KNEE ARTHROPLASTY September 10, 2024 10:08am Knee Pain September 15, 2024 4:48pm Knee Pain September 16, 2024 5:43am Chief Complaint Admit Date 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 NX September 01 10:34am [...] 01, 2024 10:49am Chief Complaint Admit Date 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 NX September 01 10:34am [...] finger, left middle finger November 272024 1:43pm Chief Complaint Admit Date Z96.652 - Presence of left artificial kn ee joint March 11, 2025 9:14am 3 MONTHS March 11, 2025 9: 46am Reason for Visit Admit Date Degenerative joint disease of left knee March 11, 2025 9:46am Status post total left knee replacement March 11, 2025 9:46am Trigger finger, left middle finger Augus t 2024 9:46am Additional Source Comments REASON FOR VISIT (unrecogniz ed section and content) Bilateral Carpal TunnelRight Hip PainRecheck Left Wrist INFORMATION SOURCE (unrecogn ized section and content) DATE CREATED AUTHOR 02/17/2022 [facility] DATE CREATED AUTHOR AUTHOR'S ORGANIZ ATION 01/05/2023 [facility] DATE CREATED AUTHOR AUTHOR'S ORGANIZ ATION 03/12/2025 [facility] Care Teams (unrecognized sec tion and content) Team Status: Active Member Role Status Dates Sarah Montgomery TIMBER SETTER-C Primary Care Provider Active Team Status: Inactive Member Role Status Dates Grant Alvarenga DO Attending Provider Active S tart: March 11, 2025 End: March 11, 2025Sarah Montgomery , TIMBER SETTER-CPrimary Care ProviderActiveStart: March 11, 2025 End: March 11, 2025 Team Status: Inactive Member Role Status Dates Sarah Montgomery TIMBER SETTER-C Primary Care Provider Active Start: March 11, 2025 End: March 11, 2025Jubryon Alvarenga DOAttending ProviderActiveStart: March 11, 2025 End: March 11, 2025 Team Status: Active Member Role Status Dates Grant Alvarenga DO Attending Provider, Other Provider Active Start: September 15, 2024 Sarah Montgomery TIMBER SETTER-CPrimary Care ProviderActiveStart: September 15, 2024 Team Status: Inactive Member Role Status Dates Grant Alvarenga DO Attending Provider Active S tart: September 16, 2024 End: September 16, 2024Sarha Montgomery , TIMBER SETTER-CPrimary Care ProviderActive Start: September 16, 2024 End: September 16, 2024 Team Status: Inactive Member Role Status Dates Grant Alvarenga DO Attending Provider Active S tart: October 01, 2024 End: October 01, 2024Pajose Montgomery , TIMBER SETTER-CPrimary Care ProviderActiveStart: October 01, 2024 End: October 01, 2024 Team Status: Inactive Member Role Status Dates Sarah Montgomery TIMBER SETTER-C Primary Care Provider Active Start: October 29, 2024 End: October 29, 2024Grant Alvarenga DOAttending ProviderActiveStart: October 29, 2024 End: October 29, 2024 Team Status: Inactive Member Role Status Dates Sarah Montgomery TIMBER SETTER-C Primary Care Provider Active Start: December 10, 2024 End: December 10, 2024Grant Alvarenga DOAttending ProviderActiveStart: December 10, 2024 End: December 10, 2024 Team Status: Active Member Role Status Dates Dick Arroyo MD Primary Care Provider Active Team Status: Inactive Member Role Status Dates NON STAFF Primary Care Provider Active Start: September 01, 2024 End: September 01, 2024Jubryon Alvarenga DOAttending ProviderActiveStart: September 01, 2024 End: September 01, 2024 Team Status: Active Member Role Status Dates NON STAFF Primary Care Provider Active Start: September 01, 2024 Grant Alvarenga DOAttending ProviderActiveStart: September 01, 2024 Team Status: Inactive Member Role Status Dates Grant Alvarenga DO Attending Provider Active S tart: September 04, 2024 End: September 04, 2024Sarah Montgomery , TIMBER SETTER-CPrimary Care ProviderActiveStart: September 04, 2024 End: September 04, 2024 Team Status: Active Member Role Status Mat Alvarenga DO Attending Provider Active S tart: September 10, 2024 Sarah Montgomery , TIMBER SETTER-CPrimary Care ProviderActiveStart: September 10, 2024 Team Status: Inactive Member Role Status Mat Alvarenga DO Attending Provider Active S tart: September 10, 2024 End: September 10, 2024Sarah Montgomery , TIMBER SETTER-CPrimary Care ProviderActive Start: September 10, 2024 End: September 10, 2024 Team Status: Active Member Role Status Mat Alvarenga DO Attending Provider Active S tart: March 11, 2025 Sarah Montgomery , TIMBER SETTER-CPrimary Care ProviderActiveStart: March 11, 2025 Goals (unrecognized section and content) Goals may [...] BE BASED ON THE PRIMARY CLINICAL RECORDS. [facility] [employer] [facility]. provides no warranty or guarantee of the accuracy or completeness of information in this document.
== END 2025-05-27 09:07 | disposition home or self-care (01) ==
LOC: FHNEUROLOG 09:06
PROVIDERS: PCP Nurse Practitioner Family; Visit Provider Psychiatry & Neurology Neurology
DX: G47.33 Obstructive sleep apnea (adult) (pediatric) (principal); G47.10 Hypersomnia, unspecified; R06.83 Snoring
CPT/HCPCS: G0463

== ENCOUNTER 2025-07-27 13:27 | Outpatient (OUT) | payer BC, SELFPAY ==
--- OUTSIDE RECORDS SUMMARY | 2024-03-17 04:10 | XMS_ITS ---
Author Organization [facility] Address [address] [place] [address] Care Team Providers Care Ash Worker Name Role Phone Cruz Dick Primary Care Provider Julian Purvis Unavailable [phone] Houston Noel Unavailable [phone] REASON FOR VISIT LEFT KNEE PAIN Encounters Encounter Location Date Provider Diagnosis [facility] Office [address] [place] [address] [place] [address] 03/17/2024 Houston Noel Pain, joint, knee, left M25.562 Assessments Encounter Date Diagnosis (ICD Code) Assessment Notes Treatment Notes Treatment Clinical Notes Section Notes 03/17/2024 Pain, joint, knee, left (ICD-10 - M25.562) Plan Of Treatment Pending Test Test Name Order Date SCC- KNEE 4 VIEW LEFT-[id number] 03/17/2024 Progress Notes * LAWRENCE LIZAMA MDOB:1970 ( 55 yo F)Acc No.[id number]:03/17/2024 Patient:?LAWRENCE LIZAMA :?NADINE BishopOB:1970???Age:54 Y ???Sex:FemaleDate:03/17/2024hone:[phone]:[address] [place] [id number]:Dick Arroyo Subjective: * Chief Complaints: * 1 . LEFT KNEE PAIN. * Medical History: Objective: * Vitals: Assessment: * Assessment: 1.?Pain, joint, knee, left - M25.562??? Plan: * Treatment: ?Imaging: SCC- KNEE 4 VIEW LEFT-85055 Forms: * Images: * Electronic signature of Houston Noel MD on 07/27/2025 at 01:32 PM ESTSign off status: Pending * Provider: Calin Noel MD Date: 0 03/17/2024 Generated for Printing/Faxing/eTransmitting on:?07/27/2025 01:32 PM EST
--- OUTSIDE RECORDS SUMMARY | 2025-07-20 04:56 | XMS_ITS ---
Author Organization [facility] in [place] Address [address] [place] [address] Care Team Providers Care Head Irrigator Name Role Phone Sarah Orantes Primary Care Provider [phone] REASON FOR VISIT Blood Pressure Medications Medication SIG (Take, Route, Frequency, Duration) Notes Start Date End Date Status hydroCHLOROthiazide 12.5 MG 1 tablet in the morning Orally Once a day; Duration: 30 days 07/20/2025tive Encounters Encounter Location Date Provider Diagnosis [facility] [address] [place] [address] 07/20/2025 Sarah Orantes Plan Of Treatment Medication Medication Name Sig Start Date Stop Date Notes hydroCHLOROthiazide 12.5 MG 1 tablet in the morning Orally Once a day; Duration: 30 days 07/20/2025 Progress Notes * Simin LIZAMA MDOB:1970 ( 55 yo F)Acc No.[id number]:07/20/2025 Patient:?DL Simin Meredith :1970???Age:55 Y???Sex:FemalePhone:[phone] Address:[address] [place] [address] * Refills Start hydroCHLOROthiazide Tablet, 12.5 MG, Orally, 30 Tablet, 1 tablet in the morning, Once a day, 30 days, Refills=11 Subjective: * Chief Complaints: * B lood Pressure * Medical History: * Surgical History: * Hospitalization/Major Diagno stic Procedure: * Medications: Objective: * Vitals: * Physical Examination: ??? Assessment: Plan: * Treatment: Start hydroCHLOROthiazide Tablet, 12.5 MG, 1 tablet in the morning, Orally, Once a day, 30 days, 30Tablet, Refills 11.?? * Procedure Codes: * true * Date:?Generated for Printing/Faxing/eTransmitting on:?07/27/2025 01:31 PM EST
--- OUTSIDE RECORDS SUMMARY | 2025-07-20 05:30 | XMS_ITS ---
Author Organization [facility] in [place] Address [address] [place] [address] Care Team Providers Care Salt Machine Operator Name Role Phone Sarah Orantes Primary Care Provider REASON FOR VISIT BP CHECK Vital Signs Height 63 in 07/20/2025 Blood pressure systolic 162 mm Hg 07/20/20 25 Blood pressure diastolic 92 mm Hg 025 Encounters Encounter Location Date Provider Diagnosis [facility] [address] [place] [address] 07/20/2025 Sarah Orantes Plan Of Treatment No Information Progress Notes * Simin CARO MDOB:1970 ( 55 yo F)Acc No.[id number]:07/20/2025 UNLOCKED PROGRESS NOTE BP Check Patient: Juan C DE LA CRUZ Simin M :?Sarah Orantes ([facility]), CNPDOB:1970 ???Age:55 Y???Sex:FemaleDate:07/20/2025Phone:[phone]:[address] [place] [id number] In:09:52 AM ESTCheck Out:10:25 AM EST Subjective: * Chief Complaints: * 1 . BP CHECK. * Medical History: Objective: * Vitals: H t: 63 in, BP:162/92mm Hg, Ht-cm: 160.02 cm. Assessment: Plan: * Treatment: * * Electronic signature of Saraheric Orantes NP, CONSUMER [email or web address].DESIGN [email or web address] on 07/27/2025 at 01:32 PM ESTSign off status: PendingVisit Status:?CHK (Check Out) * Provider: Hannah Orantes ([facility]), DESIGN COORDINATOR Date: 09/20/2024 Generated for Printing/Faxing/eTransmitting on:?07/27/2025 01:32 PM EST
--- OUTSIDE RECORDS SUMMARY | 2025-07-27 13:32 | XMS_ITS | Patient Health Record ---
Author Organization [facility] Address [address] [place] [address] Care Team Providers Care Barometers Calibrator Name Role Phone Dick Arroyo Primary Care Provider Julian Purvis Unavailable [phone] Reason For Referral No Information Problems Problem Type SNOMED Code ICD Code Onset Dates Problem Status W/U Status Risk Notes Problem Pain of left knee tobin int (finding) (835758161424588) Pain, joint, knee, left (M25.562) ActiveconfirmedProblemOsteoarthritis of knee (243403469)Primary osteoarthritis of left knee (M17.12)Activeconfirmed Plan Of Treatment Pending Test Test Name Order Date SCC- KNEE 4 VIEW LEFT-22002 04/07/2024 Insurance Providers Payer Name Payer Address Payer Phone Subscriber Number Group Number Insured Name Patient Relationship to Insured Coverage Start Date Coverage End Date [employer] [address] [place] [address] [id number] YOUNG LIZAMAelf - patient is the insured Medications Administered Medication Instructions Date of Administration Dosage Notes BUPIVACAINE mLDepo-Sqotys01 eFttheqfecg19/09/20242 mL
--- OUTSIDE RECORDS SUMMARY | 2025-07-27 13:32 | XMS_ITS | Clinical Summary ---
Author Organization [facility] Address [address] [place] [address] Care Team Providers Care Property Management Bookkeeper Name Role Phone Sarah Orantes MD Unavailable [phone] Dick Arroyo MD Primary Care Provider [phone] Social History Tobacco UseTypesPacks/DayYears UsedDateSmoking Tobacco: Never Assessed CommentsUnknownSex and Gender InformationValueDate RecordedSex Assigned at Not on fileLegal QxuGbzunv28/01/2023 8:34 PM EDTGender IdentityNot on fileSexual OrientationNot on file Plan of Treatment Health MaintenanceDue DateLast DoneCommentsCT Oprteppcrsye1970Colonoscopy 1970Colorectal Cancer Jhxnihbit1970FIT-DNA1970FIT1970 FOBT1970 1719Loxflcdliguxt1970HPV/Qogspg5502/06/20009675Dkzosyrhe53/10/2010 Influenza Vaccine (#1), 05/16/2021, 05/16/2019, Additional history existsCervical Cancer Fwygchukc06/12/2025Pap Smear Pneumococcal Vaccine: Pediatrics (0 to 5 Years) and At-Risk Patients (6 to 64 Years)Aged OutNo longer eligible based on patient's age to complete this topic Insurance Care Teams Team MemberRelationshipSpecialtyStart DateEnd Dick Arroyo MD [address] [place] [id number] PCP - GeneralFamily Medicine12/05/24 Sarah Orantes MD [address] [place] [address] [phone] Referring PhysicianFamily Medicine12/05/24
--- OUTSIDE RECORDS SUMMARY | 2025-07-27 13:32 | XMS_ITS | Patient Health Record ---
Author Organization [facility] [place] Address [address] [place] [address] Care Team Providers Care Mobile Application Tester Name Role Phone Sarah Orantes Primary Care Provider Los Salmeron [phone] Allergies Allergen (clinical drug ingredient) Drug/Non Drug Allergy documented on EMR Reaction Allergy Type Onset Date Status aspirin Aspirin stomach upset Drug Allergy ActiveLatexLatexrashAllergyActive Results Component Value Reference Range Notes COVID-19, Flu A+B IH (Not ye t reviewed by provider) Interpretation: Performing Lab: Notes/Report: COVID neg FLU AnegFLU BnegControlpresentXR foot RT min 3V (Not yet reviewed by provider) Interpretation: Performing Lab: Notes/Report: Source Facility: [place] [address] [place] [address] XRay Report Signed Patient: SIMIN CARO MR#: [id number] : 1970 Acct:[id number] Age/Sex: 54 / F ADM Date: 08/20/24 Loc: RAD Attending Dr: Los Salmeron D.P.M. Ordering Physician: Los Salmeron D.P.M. Date of Service: 08/20/24 Procedure(s): XR foot RT min 3V Accession Number(s): [id number] cc: SARAH ORANTES ; [place] D.P.M. [place] [address] Patient Name: SIMIN CARO MRN: [id number] date: 1970 Sex: F Assigned Patient Location: [facility] Current Patient Location: Accession/Order Number: [id number] Exam Date: 08/20/2024 12:55 Report Date: 08/21/2024 [...] Signed By: 08/21/24 0554 DD/ 0551 TD/TT: Shipping Support Clerk:MM tomosynthesis screening BI Reviewed date:01/06/2025 09:54:06 AM Interpretation: Performing Lab: Notes/Report: Source Facility: [place] [address] Mammography Report Signed Patient: SIMIN CARO MR#: [id number] : 1970 Acct:[id number] Age/Sex: 54 / F ADM Date: 01/05/25 Loc: MAMMO Attending Dr: SARAH ORANTES Ordering Physician: SARAH ORANTES Results: Date of Service: 01/05/25 Follow Up: Procedure(s): MM tomosynthesis screening BI Accession Number(s): [id number] cc: SARAH ORANTES Patient Name: SIMIN CARO MR#: [id number] : 1970 Exam Date: 01/05/2025 Ordering Doctor: SARAH ORANTES [facility] RADIOLOGY REPORT PROCEDURE: MM TOMOSYNTHESIS SCREENING BI COMPARISON: MM TOMOSYNTHESIS SCREENING BI, 12/27/2023. INDICATIONS: Screening Calculator Name NCI Breast Cancer Risk Assessment Tool 5 Year Breast Cancer Risk 1.10% Lifetime Breast Cancer Risk 8.20% Personal Breast Cancer No Personal Ovarian Cancer No Treatments None Family Cancers Father with bone cancer at age 69. LOCATION: [facility] BREAST COMPOSITION: There are scattered areas [...] Signed By: 01/05/25 1559 DD/ 1558 TD/TT: Shipping Support Clerk:XR shoulder LT min 2V Reviewed date:03/03/2025 03:34:37 PM Interpretation: Performing Lab: Notes/Report: Source Facility: [place] [address] XRay Report Signed Patient: SIMIN CARO MR#: [id number] : 1970 Acct:[id number] Age/Sex: 55 / F ADM Date: 03/03/25 Loc: ER Attending Dr: Ordering Physician: Adina Guillaume Date of Service: 03/03/25 Procedure(s): XR shoulder LT min 2V Accession Number(s): [id number] cc: SARAH ORANTES [place] [address] Patient Name: SIMIN CARO MRN: [id number] date: 1970 Sex: F Assigned Patient Location: ER Current Patient Location: ER Accession/Order Number: [id number] Exam Date: 03/03/2025 12:33 Report Date: 03/03/2025 12:34 At the request of: ADINA GUILLAUME MD Procedure: XR shoulder LT min 2V XR shoulder LT min 2V 03/03/2025 12:10 PM SIGNS AND SYMPTOMS: Popping sensation in left shoulder with pain radiating down left arm PROTOCOL: Frontal, Grashey, and scapular Y views of the left shoulder COMPARISON: 12/24/2018 FINDINGS: The glenohumeral joint and acromioclavicular joint are preserved. There is no fracture or dislocation. The visualized left hemithorax is grossly intact. XR/XR shoulder LT min 2V IMPRESSION: No fracture or dislocation. No significant degenerative change. Impression dictated by: Juan Sanders M.D. 03/03/2025 12:34 PM Dictation Location: [place] [address] Electronically authenticated by: [id number] Y Date: 03/03/2025 12:34 Dictated By: Juan Sanders M.D. Signed By: 03/03/25 1237 DD/ 1234 TD/TT: Shipping Support Clerk:CT FOOT RT WO CON (Not yet reviewed by provider) Interpretation: Performing Lab: Notes/Report: Source Facility: [place] [address] CT Scan Report Signed Patient: SIMIN CARO MR#: [id number] : 1970 Acct:[id number] Age/Sex: 54 / F ADM Date: 08/27/24 Loc: CT Attending Dr: Los Salmeron D.P.M. Ordering Physician: [place] Sal[place] D.P.M. Date of Service: 08/27/24 Procedure(s): CT foot RT wo con Accession Number(s): [id number] cc: SARAH ORANTES [place] [address] Patient Name: SIMIN CARO MRN: [id number] date: 1970 Sex: F Assigned Patient Location: [facility] Current Patient Location: Accession/Order Number: [id number] Exam Date: 08/27/2024 10:45 Report Date: 08/28/2024 [...] M.D. Signed By: 08/28/24825 DD/ 2 TD/TT: Shipping Support Clerk: Reason For Referral Reason intermittent facial numbness Diagnosis 1 Facial numbness (R20 .0) Referral Organization [facility] Referring Provider First Name Sarah Referring Provider Last Name Rolanda Referring Provider [facility] di Referred Provider Shefali Vasquez Referred Provider Specialty Neurology Referral Priority Routine Reason snoring, fatigue Diagnosis 1 Snoring (R06.83) Referral Organization [facility] Referring Provider First Name Sarah Referring Provider Last Name Rolanda Referring Provider [facility] di Referred Provider Shefali Vasquez Referred Provider Specialty Sleep Medici ne Referral Priority Routine Medications Medication SIG (Take, Route, Frequency, Duration) Notes Start Date End Date Status Venlafaxine HCl ER 150 MG Take 1 capsule by mouth once daily Orally Once a day; Duration: 30 days ActiveTylenol 325 MG1 tablet as needed Orally every 6 hrsActiveXanax 0.5 MG1/2 to 1 tablet as needed Orally Twice a day; Duration: 7 days5Active Vitamin D3 50 MCG (2000 UT)1 capsule Orally Once a day; Duration: 30 day(s) 5ActiveVitamin D3 50 MCG (2000 UT)TAKE 1 CAPSULE BY MOUTH EVERY DAY FOR 90 DAYS; Duration: 90ActiveLisinopril 40 MGTAKE 1 TABLET EVERY DAY; Duration: 90 daysActivehydroCHLOROthiazide 12.5 MG1 tablet in the morning Orally Once a day; Duration: 30 days07/20/2025tiveDoxepin HCl 10 MG2 capsules Orally at bedtime ActiveAbilify 2 MG1 tablet Orally Once a dayActiveAmitriptyline HCl 50 MGTAKE 2 TABLETS BY MOUTH AT BEDTIME FOR 30 DAYSNot-TakingpredniSONE 20 MGas directed Orally Once a day; Duration: 11 days5ActiveAzithromycin 250 MGas directed Orally daily; Duration: 5 daystake 2 tablets po on first day than 1 tablet po days 2-5ActiveBenzonatate 200 MG1 capsule as needed Orally Three times a day; Duration: 10 days5ActiveMeloxicamActive Social History Tobacco Use: Social History Observation Description Date Details (start date - stop date) Never Smoker NA - NA Tobacco Control (Standard) Question Answer Notes Tobacco use: Nonsmoker AUDIT-C (Standard) Question Answer Notes Did you have a drink containing alcohol in the p ast year? No Yynhgs8RjamcmkbcwcbveEqboighoSpduafu Notes: Former Smoker Former Smoker Former Smoker [...] Problem Status W/U Status Risk Notes Problem Anxiety disorder (562194126) Anxiety diso rder, unspecified (F41.9) ActiveconfirmedProblemLocalized, primary osteoarthritis of the ankle and/or foot (795599868)Primary osteoarthritis, right ankle and foot (M19.071)Activeconfirmed ProblemAcquired deformity of right foot (disorder) (753547722)Other acquired deformities of right foot (M21.6X1)ActiveconfirmedProblemDeformity of lower leg (143613819)Other specified acquired deformities of right lower leg (M21.861) ActiveconfirmedProblemPseudarthrosis after fusion or arthrodesis (573207148) Pseudarthrosis after fusion or arthrodesis (M96.0)ActiveconfirmedProblemOther postprocedural complications and disorders of genitourinary system (N99.89) ActiveconfirmedProblemPain associated with internal prosthetic device (disorder) (001095763)Pain due to internal orthopedic prosthetic devices, implants and grafts, initial encounter (T84.84XA)ActiveconfirmedProblemPresence of functional implant, unspecified (Z96.9)ActiveconfirmedProblemHypertension (86410380)HTN (hypertension) (I10)ActiveconfirmedProblemOsteoarthritis of knee (767689062) Osteoarthritis of knee (M17.9)ActiveconfirmedProblemInsomnia (705484649)Insomnia (G47.00)ActiveconfirmedProblemEnlarged uterus (718988703)Enlarged uterus (N85.2) ActiveconfirmedProblemPain in right foot (963968793405222)Right foot pain (M79.671)ActiveconfirmedProblemIron deficiency anemia (30406639)Anemia, iron deficiency (D50.9)ActiveconfirmedProblemHallux valgus of right foot (5965158329) Hallux valgus of right foot (M20.11)ActiveconfirmedProblemType II diabetes mellitus without complication (223411489)Type 2 diabetes mellitus without complications (E11.9)ActiveconfirmedProblemIron deficiency anemia (47907465)Iron deficiency anemia, unspecified iron deficiency anemia type (D50.9)Active confirmedProblemHysterectomy (085487473)H/O abdominal hysterectomy (Z90.710) ActiveconfirmedProblemMenopausal flushing (566335137)Hot flashes, menopausal (N95.1)ActiveconfirmedProblemInstability of joint of right ankle (8883638158928811)Instability of right ankle joint (M25.371)Activeconfirmed ProblemEssential hypertension (20719634)BP (high blood pressure) (I10)Active confirmedProblemArthritis of right foot (9489251691238312)Arthritis of right foot (M19.071)ActiveconfirmedProblem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)ActiveconfirmedProblemHistory and physical examination, follow-up (767622635)Encounter for examination following surgery (Z09)Activeconfirmed ProblemTibialis tendinitis (27434505)Posterior tibial tendon dysfunction (PTTD) of right lower extremity (M76.821)ActiveconfirmedProblemChronic kidney disease stage 3A (disorder) (575460552)Chronic kidney disease, stage 3a (N18.31)Active confirmedProblemObese class III (finding) (461912173)Class 3 obesity (E66.01) ActiveconfirmedProblemPlantarflexion deformity of right foot (finding) (4999663320032180)Equinus contracture of right ankle (M24.571)Activeconfirmed ProblemAcquired valgus deformity of right foot (M21.071)Activeconfirmed Vital Signs Heart Rate 81 /min 06/29/2025 Tzignkdeqrb15.5 degrees Fgeauniwhr80/01/2025Respiratory Rate16 /min08/20/2024 Blood pressure cllyfuwhd53 mm Hg07/20/20257257Ldltlcdm58 %06/29/20252244Clxmck55 in 07/20/2025lood pressure vwvjovob721 mm Hg07/20/20253753Iebnvo150.0 lbs108/30/2024MI 37.73 kg/m206/29/2025 Encounters Encounter Location Date Provider Diagnosis [facility] [address] [place] [address] 01/21/2025 Sarah Orantes [facility] [place] [address] 06/29/2025Pajose Mirandaxiety disorder, unspecified F41.9[facility] [place] [address]/03/2025Sarah Osorio (hypertension) F24UgnsfouUC[facility] [place] [address]/22/2025[facility] [facility] [place] [address]/04/2025[facility] [facility] [place] [address]/04/2025Pamela Rolanda Anxiety disorder, unspecified F41.9[facility] [facility] [place] [address]/05/2025Pamela PrasadmerClass 3 obesity E66.01 [facility] [facility] [place] [address] 12/03/2024[facility] [place] [facility] [place] [address]/04/2025[facility] [address] [facility] [place] [address]/[facility] [facility] [place] [address]/ Sarah CramerAnxiety disorder, unspecified F41.9[facility] [employer] ([facility]ODIAT[facility])[address] [place] [address]/[facility] [employer] ([employer]ODI[employer])[address] [address]/PeAdventHealth DurandPseudarthrosis after fusion or arthrodesis M96.0 ; Primary osteoarthritis, right ankle and foot M19.071 and Right foot pain M79.671[facility] [employer] [facility])[address] [place] [address]/10/2024PeAdventHealth DurandPrimary osteoarthritis, right ankle and foot M19.071 ; Posterior tibial tendon dysfunction (PTTD) of right lower extremity M76.821 and Pseudarthrosis after fusion or arthrodesis M96.0[facility] [facility] [place] [address]/04/2025[facility] centerm[facility] ParhammerPre-operative clearance Z01.818 and Weight loss R63.4[place]uz[facility] [address] [place] [address]/01/2025Pamela CramerAnxiety disorder, unspecified F41.9 and Facial numbness R20.[address] [address]/06/2025Pamela CramerSnoring R06.[address] [address]/07/2024Pamela CramerChronic kidney disease, stage 3a N18.31 [address] Bronchitis P[address] [address]/Pamela Rolanda Assessments Encounter Date Diagnosis (ICD Code) Assessment Notes Treatment Notes Treatment Clinical Notes Section Notes 09/08/2024 Pre-operative clearance (ICD-10 - Z01.818) labs reviewed, ok obtain EKG and review 09/08/2024Weight loss (ICD-10 - R63.4) start after sx if approved work on diet 12/03/2024nxiety disorder, unspecified (ICD-10 - F41.9) discussed past med treatment discussed current anxiety state did recently start counseling patient agreeable to seeing psych for dx, med changes referral sheet given 12/03/2024Facial numbness (ICD-10 - R20.0) lower lip, intermittent seems related to anxiety requesting neurology consult 01/08/2025Snoring (ICD-10 - R06.83)06/29/2025hronic kidney disease, stage 3a (ICD-10 - N18.31)continue to hanymkx6706/29/2025ronchitis (ICD-10 - J40) 08/11/2024nxiety disorder, unspecified (ICD-10 - F41.9)09/08/2024nxiety disorder, unspecified (ICD-10 - F41.9)5Class 3 obesity (ICD-10 - E66.01)06/29/2025nxiety disorder, unspecified (ICD-10 - F41.9)07/01/2025HTN (hypertension) (ICD-10 - I10)08/20/2024Pseudarthrosis after fusion or arthrodesis (ICD-10 - M96.0)Patient continues to have pain and difficulty ambulating [...] will follow-up after the CT scan is vyoxmsvky86/22/2025Primary osteoarthritis, right ankle and foot (ICD-10 - M19.071)09/02/2024Primary osteoarthritis, right ankle and foot (ICD-10 - M19.071)Patient presents for follow-up and is seemingly doing pretty well given all her for her orthopedic issues. I reviewed her CT scan with her. Recommend that she continue wearing the ASO ankle brace. I believe that her right foot symptoms will continue to improve with time especially after her left knee is replaced. She will follow-up with me in 3 months sooner if needed. 09/02/2024Posterior tibial tendon dysfunction (PTTD) of right lower extremity (ICD-10 - M76.821)09/02/2024Pseudarthrosis after fusion or arthrodesis (ICD-10 - M96.0)08/20/2024Right foot pain (ICD-10 - M79.671) Plan Of Treatment Pending Test Test Name Order Date CMP (COMPLETE METABOLIC PANEL) 4 CMP (COMPLETE METABOLIC PANEL) 4 HEMOGLOBIN A1C (GLYCO) 06/30/2024 HEMOGLOBIN A1C (GLYCO) 12/04/2023 INSULIN, TOTAL 06/30/2024 IRON, TOTAL 12/04/2023 LIPID PANEL (CHOL/TRIG/HDL/LDL) 06/30/20 24 LIPID PANEL (CHOL/TRIG/HDL/LDL) 12/04/19 24 CBC WITH DIFF (EXP 05/2025) 12/04/2023 CBC WITH DIFF (EXP 05/2025) 06/30/2024 VITAMIN D, 25 LEVEL (TOTAL) 12/04/2023 XR Foot RT (3 views) * 03/11/2024 XR Foot RT (3 views) * 08/20/2024 CT Ankle RT w/o contrast * (Optional 3D Rendering) 05/28/2024 CT Ankle RT w/o contrast * (Optional 3D Rendering) 02/19/2024 CT Foot RT w/o contrast * (Optional 3D R endering) 08/20/2024 Insulin Level 12/04/2023 COVID-19, Flu A+B IH 06/29/2025 STOOL OCCULT BLOOD 06/30/2024 THYROID PANEL (T4/TSH/FREE T3) 4 THYROID PANEL (T4/TSH/FREE T3) 4 CT FOOT RT WO CON 08/28/2024 XR foot RT min 3V 08/21/2024 Insurance Providers Payer Name Payer Address Payer Phone Subscriber Number Group Number Insured Name Patient Relationship to Insured Coverage Start Date Coverage End Date BCBS OUT OF STATE [address] [place] [address] [id number] Shemar Caroelf - patient is the insured Medications Administered Medication Instructions Date of Administration Dosage Notes DEPO-Medrol mLLidocaine HCl mL Medical (General) History Medical History History [...] I10 Anemia D64.9 Surgical History Surgery Date(Month/Year) Abdominal Hysterectomy with Bilateral Sa lpingectomy 07/25/2017 Dilation and Curettage of Uterus 2015 Laparoscopic Tubal Ligation 1992 RT Talonvicular and Tranvers e Tarsal Joint Fusion, RT Subtalar Joint Fusion, RT Ankle Arthroscopy RT Gastric recession, [place] of distal Tibial Bone Graft 08/14/2022 Revision subtalar joint fusion 4 Left knee replacement 09/16/24 Hospitalization History Reason Date(Month/Year) see above
--- OUTSIDE RECORDS SUMMARY | 2025-07-27 13:32 | XMS_ITS | Clinical Summary ---
Author Organization [facility] tem Address [id number] [address] [place] [address] Care Team Providers Care Measuring Machine Operator Name Role Phone Rolanda Sarah Layton MOTION PICTURE NARRATOR-OCULARIST Primary Care Provider Allergies Active AllergyReactionsCriticalityNoted DateCommentsAspirinNausea And Vomiting High05/08/20226366DzfowQltyUoba52/10/2022 Medications MedicationSigDispense QuantityRefillsLast FilledStart DateEnd DateStatus meloxicam [...] by mouth nightly.05/06/2022ctive Active Problems ProblemNoted DateDiagnosed SdvaQrayhk16/31/2022Hearing loss05/29/2022 Omnjtdnwkmwj27/31/2022 Family History Medical HistoryRelationNameCommentsCancerFatherboneArthritisMotherFibromyalgia MotherHeart diseaseMotherNeuropathyMotherRelationNameStatusCommentsFather DeceasedMotherAlive Social History Tobacco UseTypesPacks/DayYears UsedDateSmoking Tobacco: FormerCigarettes Smokeless Tobacco: Never Tobacco Cessation:Counseling Given: Not Answered Alcohol UseStandard Drinks/WeekCommentsNot Currently0 (1 standard drink = 0.6 oz pure alcohol)CommentsNoSex and Gender InformationValueDate RecordedSex Assigned at BirthNot on fileLegal VkkJnclyl08/28/2022 9:04 AM EDTGender Identity Not on fileSexual OrientationNot on file Last Filed Vital Signs Vital SignReadingTime TakenCommentsBlood Sibgzlhd981/7405/10/2022 2:31 PM EDT Pulse--Fznwdhphglc61.3 ??C (97.3 ??F)05/29/2022 3:47 PM EDTRespiratory Rate-- Oxygen Saturation--Inhaled Oxygen Concentration--Atexmz17.4 kg (186 lb) 05/29/2022 3:47 PM YRUNgrbpg049 cm (5' 3 )05/29/2022 3:47 PM EDTBody Mass Index 32.9505/29/2022 3:47 PM EDT Plan of Treatment Health MaintenanceDue DateLast DoneCommentsDepression Cvfuvpoub60/10/1982Tobacco Zyqjtzdyv48/10/1982Adult BMI Bvgyubpwn33/10/1988DTaP,Tdap and Td Vaccines (1 - Tdap)1989Zoster (Shingles) Vaccine (2 of 2)/2Colonoscopy /2COVID-19 Vaccine (2 - season)/11/2020 Influenza Limcjyy44/, 05/16/2021, 05/16/2019, Additional history existsPap Smear, 05/10/2022 Medical Devices Not on file Procedures Procedure NamePriorityDate/TimeAssociated DiagnosisCommentsCOLONOSCOPYRoutine 07/05/2022 Abdominal pain, unspecified abdominal location Rectal bleeding HIGH RISK HPV W/LZOBOpmvejb00/12/2022 8:12 AM EDT from Last 3 Months or Most Recently Relevant to Health Maintenance Results * Colonoscopy (07/05/2022) Narrative Authorizing ProviderResult TypeResult StatusJoel AIKEN PROCEDURE ORDERABLESEdited Result - FinalPerforming OrganizationAddressCity/State/ZIP Code Phone Number MANUALLY TRANSCRIBED RESULTS * High risk HPV w/jimmie (05/10/2022 8:12 AM EDT)ComponentValueRef RangeTest MethodAnalysis TimePerformed AtPathologist SignatureHpv specimen typeThinPrep 05/11/2022 8:13 AM EDTSUNQUESTHpv 16NegativeNegative^Iiagssxh50/15/2022 6:25 AM EDBLANCH[facility] LABHpv 18NegativeNegative^Zjucxoju96/15/2022 6:25 AM [facility] LABOther high risk hpvNegative Negative^Zdnfqyup49/15/2022 6:25 AM [facility] LABComment: HPV types 31,33,35,39,45,52,56,58,59,66 and 68 DNA were undetectable. Specimen (Source)Anatomical Location / LateralityCollection Method / Volume Collection TimeReceived RlibXOMZW50/12/2022 8:12 AM EDT1 8:12 AM EDT Narrative Authorizing ProviderResult TypeResult Tasia Guzman MOTION PICTURE NARRATOR-CNPLAB BLOOD ORDERABLESFinal ResultPerforming OrganizationAddressCity/State/ZIP CodePhone Number [facility] [address], [address] [place] [address] from Last 3 Months or Most Recently Relevant to Health Maintenance Insurance Care Teams Team MemberRelationshipSpecialtyStart DateEnd Date Sarah Orantes, FELIX-OCULARIST [address] [place] [address] PCP - GeneralFamily Medicine02/23/22
[2025-07-27 13:49] LABS: Hematocrit 47.5 % (36.0-48.0); Hemoglobin 16.2 g/dL (12.0-16.0); Immature Granulocytes Abs Auto 0.01 10^3/uL (0.00-0.03); Immature Granulocytes Pct Auto 0.2 % (0.0-0.5); Lymphocytes Absolute Auto 2.0 10^3/uL (1.2-3.8); Mean Corpuscular HGB Conc 34.1 g/dL (29.9-35.2); Mean Corpuscular Hemoglobin 28.1 pg (26.7-34.0); Mean Corpuscular Volume 82.5 fL (81.0-99.0); Platelet Count 285 10^3/uL (150-450); Red Blood Count 5.76 10^6/uL (4.20-5.40); White Blood Count 5.6 10^3/uL (4.0-11.0)
[2025-07-27 14:15] LABS: Alanine Aminotransferase 20 U/L (14-59); Albumin Globulin Ratio 1.2; Albumin Level 4.4 g/dL (3.4-5.0); Alkaline Phosphatase 108 U/L (46-116); Anion Gap 13.0; Aspartate Amino Transferase 19 U/L (15-37); Blood Urea Nitrogen 16.0 mg/dL (7.0-18.0); Calcium 10.5 mg/dL (8.5-10.1); Carbon Dioxide 29.0 mmol/L (21.0-32.0); Chloride 102 mmol/L (98-107); Estimated GFR (African America >60 (>=60 mL/min/1.73m^2); Estimated GFR (Non-African Ame >60 (>=60 mL/min/1.73m^2); Globulin 3.7 g/dL; Glucose 105 mg/dL (74-106); Potassium 4.0 mmol/L (3.5-5.1); Sodium 140 mmol/L (136-145); Total Protein 8.1 g/dL (6.4-8.2)
--- OUTSIDE RECORDS SUMMARY | 2025-07-27 16:21 | XMS_ITS | CCD ---
Author Organization [facility] CliniSyid Care Team Providers Care Book Sorter Name Role Phone Grant Alvarenga Unavailable SARAH [...] ., DR JASIEL Hutchinson Consulting Unavaila laura [facility] Primary Care Unavailable SARAH MONTGOMERY Admitting Unavailable [...] Care Provider UnavailGrant Iyer DO Attending Provider Valentina SENIOR CLIMATE ADVISOR-C, Sarah Cheryl Primary Care Provider NON STAFF Primary Care Provider Unavailabl e Colette العراقي, Grant A Attending Provider [phone] Valentina SENIOR CLIMATE ADVISOR-C, Sarah Cheryl Primary Care Provider Colette DO, Grant A Attending Provider [phone] Valentina SENIOR CLIMATE ADVISOR-C, Sarah Cheryl Primary Care Provider Colette DO, Grant A Attending Provider [phone] Valentina SENIOR CLIMATE ADVISOR-C, Sarah Cheryl Primary Care Provider Colette, Grant [...] Allergen(s)Allergy TypeDate of OnsetReaction(s) Facility (14 sources)AspirinDrug Fuhzydo67-34-3632XbdntzvKettering Health [facility] (14 sources)LatexPropensity to adverse uzyipjlwj35-15-4631AtrtxbhTrinity Health System (2 sources)AspirinDrug AllergyThe [facility] (2 sources)LatexDrug allergy (disorder)The [facility] (1 source)AspirinDrug Vinrgqx61-98-7523YgblonbnjRiverside Methodist Hospital Repository (1 source)LatexDrug allergy (disorder)28-57-6363OghpygximRiverside Methodist Hospital Repository Medications Current Medications MedicationDrug Class(es)DatesSig (Normalized)Sig (Original)acetaminophen 500 mg oral tablet (19 sources)Start: 09-01-2024 End: 61-84-8777mfqg 2 tablets by mouth every eight hoursAcetaminophen 500 mg tablet Active 1000 MG PO Q8H 180 September 10, 2024 1:00am Complies with dr ug therapyALPRAZolam 0.5 mg oral tablet (11 sources)BenzodiazepineStart: 17-37-9635oagq 1 tablet by mouth twice daily as needed for anxietyAlprazolam 0.5 mg tablet Active 0.5 MG PO Twice daily as needed for anxiety September 01, 2024 1:00am Complies with drug therapyStart: 23-50-2735Nfqwmebbpv 0.5 mg tablet Active MG PO September 01, 2024 12:00am amitriptyline hydrochloride 50 mg oral tablet (14 sources)Tricyclic AntidepressantStart: 21-32-8816ahhq 2 tablets by mouth once daily at [...] 1000 mg oral tablet (9 sources)Vitamin CStart: 47-75-3358xgte 1 tablet by mouth once dailyAscorbic Acid (Vitamin C) (C-1000) 1,000 mg tablet Active 1 GM PO Daily September 04, 2024 1:00am Complies with drug therapyStart: 65-09-2573kcei 1 tablet by mouth once dailyAscorbic Acid (Vitamin C) (C-1000) 1,000 mg tablet Active 1 GM PO Daily September 04, 2024 1:00amStart: 12-36-0904jyoz 1 tablet by mouth once dailyAscorbic Acid (Vitamin C) (C-1000) 1,000 mg tablet Active 1 GM PO Daily September 04, 2024 12:00amcholecalciferol 0.05 mg oral tablet (13 sources)Vitamin DStart: 12-50-9402iwht 1 tablet by mouth once daily Cholecalciferol (Vitamin D3) (Vitamin D3) 50 mcg (2,000 unit) tablet Active 150 MCG PO Daily September 01, 2024 1:00am Complies with drug therapyStart: 88-26-9765Rnbjhuifpkylusb (Vitamin D3) (Vitamin D3) 50 mcg (2,000 unit) tablet Active PO September 01, 2024 12:00amtake 1 capsule by mouth every weekVitamin D3 1.25 MG (02007 UT) 1 capsule Orally once per week Activeferrous sulfate 325 mg oral tablet (9 sources)Start: 18-29-2533ztim 1 tablet by mouth once dailyFerrous Sulfate (Ferosul) 325 mg (65 mg iron) tablet Active 325 MG PO Daily September 04, 2024 1:00am Complies with drug therapylisinopril 20 mg oral tablet (14 sources)Angiotensin Converting Enzyme InhibitorStart: 53-55-5728equp 1 tablet by mouth once daily in the morningLisinopril 20 mg tablet Active 20 MG PO Every morning September 01, 2024 1:00am Complies with drug therapytake 1 tablet by mouth every twenty-four hoursLisinopril 20 MG 1 tablet Orally Once a day ActiveMagnesium (3 sources)Start: 23-23-7140zaahyghmn Active PO December 10, 2024 12:00am Complies with drug therapyStart: 13-86-4307yuaadywwj Active PO December 10, 2024 12:00am meloxicam 15 mg oral tablet (16 sources)Nonsteroidal Anti-inflammatory DrugStart: 67-69-0053neek 1 tablet by mouth once dailyMeloxicam 15 mg tablet Active 15 MG PO daily March 11, 2025 12:00am Complies with drug therapyStart: 09-01-2024 End: 82-09-0825ecsr 1 tablet by mouth once dailyMeloxicam 15 mg tablet Discontinued 15 MG PO daily September 01, 2024 1:00am September 04, 2024 12:56pmtake 1 tablet by mouth every twenty-four hoursMeloxicam 15 MG 1 tablet Orally Once a day Mcachy04 hr venlafaxine 75 mg extended release oral capsule (20 sources)Serotonin and Norepinephrine Reuptake InhibitorStart: 33-73-2143xtjl 1 capsule by mouth once daily in the morningVenlafaxine 75 mg capsule,extended release 24hr Active 75 MG PO Every morning September 04, 2024 1:00am Complies with drug therapyStart: 04-26-0338kcbz 1 tablet by mouth once daily in [...] Inhibitor, Nonsteroidal Anti-inflammatory Drug Start: 09-15-2024 End: 85-83-8555Tuxnnjf 81 mg tablet,chewable Discontinued 0 .ROUTE .COMPLEX 74 September 15, 2024 7:50am December 10, 2024 1:52pm CHEW AND SWALLOW 1 TABLET TWICE DAILYStart: 09-10-2024 End: 78-46-8760fcyz 1 tablet by mouth twice dailyAspirin 81 mg tablet,chewable Discontinued 81 MG PO Twice daily 74 37 September 10, 2024 1:00am September 15, 2024 7:51amcyclobenzaprine hydrochloride 10 mg oral tablet (8 sources)Muscle RelaxantStart: 09-10-2024 End: 67-61-4501rgts 5-10 mg by mouth every eight hoursCyclobenzaprine 10 mg tablet Discontinued 5 - 10 MG PO Q8H 30 14 September 10, 2024 1:00am December 10, 2024 1:52pmdocusate sodium 100 mg oral capsule (8 sources)Start: 09-10-2024 End: 37-53-6335veth 1 capsule by mouth twice dailyDocusate Sodium (Colace) 100 mg capsule Discontinued 100 MG PO Twice daily 28 14 September 10, 2024 1:00am December 10, 2024 1:52pmdoxycycline hyclate 100 mg oral tablet (8 sources)Tetracycline-class DrugStart: 09-10-2024 End: 42-14-3736ntgp 1 tablet by mouth twice dailyDoxycycline Hyclate 100 mg tablet Discontinued 100 MG PO Twice daily 14 September 10, 2024 1:00am December 10, 2024 1:52pmibuprofen 200 mg oral tablet (9 sources)Nonsteroidal Anti-inflammatory DrugStart: 09-04-2024 End: 82-96-2902Eieyignoq (Advil) 200 mg tablet Discontinued 400 MG PO every 6 to 8 hours as needed for fever or pain September 04, 2024 1:00am March 11, 2025 10:42amoxyCODONE hydrochloride 5 mg oral tablet (8 sources)Opioid AgonistStart: 09-10-2024 End: 01-60-1646swgw 1 tablet by mouth every four hours as needed for pain Oxycodone 5 mg tablet Discontinued 5 MG PO Q4H as needed for Pain 42 September 10, 2024 December 10, 2024 1:52pm dispense 42 (forty-two) tablets diagnosis M17.12 DO NOT FILL UNTIL 09/15/2024traMADol hydrochloride 50 mg oral tablet (8 sources)Opioid AgonistStart: 09-10-2024 End: 48-15-9757govz 1 tablet by mouth every four hours as needed for pain Tramadol 50 mg tablet Discontinued 50 MG PO Q4H as needed for Pain 42 September 10, 2024 1:00am December 10, 2024 1:52pm dispense 42 (forty-two) tablets diagnosis M17.12 DO NOT FILL UNTIL 09/15/2024triamcinolone acetonide 40 mg/ml injectable suspension (2 sources)CorticosteroidStart: 94-31-7883Qfqjhly-40 Jan, 40 mg Problems Active Problems Problem ClassificationProblemDateDocumented DateEpisodic/ChronicAcquired foot deformities (10 sources)Valgus deformity, not elsewhere classified, right ankle; Translations: [Varus deformity, not elsewhere classified, right ankle]Onset: 45-04-9755TgaqjzrtRuxuhgpwu hypertension (1 source)Essential (primary) hypertension; Translations: [ESSENTIAL PRIMARY HYPERTENSION]Onset: 82-88-2804MlapuljLjntsji and fatigue (1 source)Weakness; Translations: [WEAKNESS]Onset: 56-49-1850Dgjfzote Osteoarthritis (20 sources)Primary osteoarthritis, right ankle and foot; Translations: [Unspecified osteoarthritis, unspecified site]Onset: 97-94-9156GyukptoUasvf acquired deformities (1 source)Contracture, right ankle; Translations: [CONTRACTURE RIGHT ANKLE] Onset: 61-71-1904WxuxttmKhagr connective tissue disease (7 sources)History of total knee arthroplasty; Translations: [Presence of left artificial knee joint]17-18-4341MpefgknIvxcgul on above:DOS 09/16/[address] AlvarengaOther connective tissue disease (7 sources)Presence of left artificial knee joint; Translations: [Knee joint replacement]Onset: 095640-72-8910DatttfnIclgz connective tissue disease (5 sources)Triggering of digit; Translations: [Trigger finger, left middle finger]01-63-5808QcyetfozYoifg connective tissue disease (1 source)Trigger finger, left middle finger; Translations: [Trigger finger (acquired)]94-60-4367KzspeaxsBtwso ear and sense organ disorders (1 source)Unspecified hearing loss, unspecified ear; Translations: [UNS HEARING LOSS UNSPECIFIED EAR]Onset: 79-52-4094ZxcmsgyWzjmz gastrointestinal disorders (3 sources)Constipation; Translations: [Constipation, unspecified]EpisodicOther [...] TUNNEL SYND LEFT UPPER LIMB]Onset: 10-31-2021 Resolved: 67-70-7009OuygaalGmqqo nervous system disorders (1 source)Carpal tunnel syndrome, right upper limbOnset: 10-31-2021 Resolved: 68-70-7256IvgrjuqMylac nervous system disorders (1 source)Unspecified abnormalities of gait and mobility; Translations: [UNS ABNORMALITIES GAIT AND MOBILITY]Onset: 66-56-7687SlyuysbwLmgkf nervous system disorders (1 source)Other abnormalities of gait and mobility; Translations: [OTHER ABNORMALITIES GAIT AND MOBILITY]Onset: 75-24-2630GfiptvevLnffv non-traumatic joint disorders (1 source)Other instability, right ankle; Translations: [OTHER INSTABILITY RIGHT ANKLE]Onset: 67-45-8962McrgpfhhColmv nutritional; endocrine; and metabolic disorders (1 source)Obesity, unspecified; Translations: [OBESITY UNSPECIFIED]Onset: 34-17-5581EasjlhqLmtzfyhsfotd (1 source)CONTACT W/AND (SUSP) EXPOS COVID-19; Translations: [CONTACT W/AND (SUSP) EXPOS COVID-19]Onset: 53-81-2865Gwbyqmhormdu (1 source)ESOPHAGITIS UNSPEC WITHOUT BLEEDING; Translations: [ESOPHAGITIS UNSPEC WITHOUT BLEEDING]Onset: 05-24-2022 Past or Other Problems Problem ClassificationProblemDateDocumented DateEpisodic/ChronicAbdominal pain (5 sources)Unspecified abdominal pain; Translations: [UNSPECIFIED ABDOMINAL PAIN]Onset: 55-24-5991BcffknqrYbgumpqce and duodenitis (1 source)Other gastritis without bleeding; Translations: [OTHER GASTRITIS WITHOUT BLEEDING]Onset: 87-44-4226GpkdfdaeJvgxtqizomabrgov hemorrhage (5 sources)Hemorrhage of anus and rectum; Translations: [HEMORRHAGE OF ANUS AND RECTUM]Onset: 16-49-0016FizhhaahNbalctogfdekx symptoms and ill-defined conditions (2 sources)Personal history of urinary (tract) infections; Translations: [Other difficulties with micturition]Onset: 85-43-0001QfpugasjIrswbz and vomiting (1 source)Nausea; Translations: [NAUSEA]Onset: 34-58-8051BogeyczlDcoau acquired deformities (1 source)Mallet finger of left finger(s)Onset: 10-31-2021 Resolved: 65-86-2895ZcupcovpPlwwq acquired deformities (1 source)Other specified acquired deformities of musculoskeletal system; Translations: [OTHER SPEC ACQ DEFORMITY MSK SYS]Onset: 54-73-5467TqxyafkmJbqxt circulatory disease (4 sources)Other specified symptoms and signs involving the circulatory and respiratory systems; Translations:[OTH SPEC SX SIGNS INVLV CIRC RS]Onset: 91-44-2581WlphpwcjZmyvs connective tissue disease (1 source)Trochanteric bursitis, right hipOnset: 01-27-2022 Resolved: 96-46-2294CchmsxktZegql connective tissue disease (1 source)Trigger finger, right middle fingerOnset: 02-03-2022 Resolved: 94-62-8722RrxvaicdXuycd connective tissue disease (4 sources)Pain in right foot; Translations: [PAIN IN RIGHT FOOT]Onset: 82-43-5015FmqxbqrgLdqki connective tissue disease (1 source)Posterior tibial tendinitis, right leg; Translations: [POSTERIOR TIBIAL TENDINITIS RT LEG]Onset: 22-78-2896NqhpxhaxVlmcw non-traumatic joint disorders (1 source)Pain in right hipOnset: 01-27-2022 Resolved: 82-68-4326EtagthqsMxypq non-traumatic joint disorders (1 source)Other specified joint disorders, right ankle and foot; Translations: [OTHER SPEC JOINT D/O RT ANKLEFOOT]Onset: 90-80-8397ZfltdrpwCxucz non-traumatic joint disorders (1 source)Pain in left knee; Translations: [Pain in left knee]Onset: 09-01-2024 EpisodicResidual codes; unclassified (2 sources)Other specified postprocedural statesOnset: 01-27-2022 Resolved: 62-63-2606XttrrnuxGyvmfhwi codes; unclassified (1 source)Acquired absence of both cervix and uterus; Translations: [ACQUIRED ABSENCE BOTH CERVIX AND UTERUS]Onset: 62-31-7486TuxycpsrHsyoabsm codes; unclassified (1 source)Acquired absence of uterus with remaining cervical stump; Translations: [ACQ ABSENCE UTRUS REM CERVSTUMP]Onset: 23-16-4557Juanzupq Screening and history of mental health and substance abuse codes (1 source)Personal history of nicotine dependence; Translations: [PERSONAL HISTORY OF NICOTINE DEPEND]Onset: 42-43-9606DjcokhanLciugyj tract infections (5 sources)Urinary tract infection, site not specified; Translations: [UTI SITE NOT SPECIFIED]Onset: 37-97-3324Dalqswvl Results Test NameValueInterpretationReference RangeFacilityX-ray reportOrdered By: Arcadio Ontiveros on 87-91-9327Fnqxi reportAVITA [facility] [address] [place] [address] XRay Report Signed Patient: Simin Caro MR#: [id number] : 1970 Acct:[id number] Age/Sex: 55 / F ADM Date: 5 Loc: SOXD Room: Type: [facility] CLI Attending Dr: Grant Alvarenga DO Copies [...] Ontiveros M.D. 03/11/2025 1:08 PM Dictation Location: [place] [address] Transcribed By: JESSICA 03/11/25 1308 Dictated By: Arcadio Ontiveros DO 03/11/25 1308 Signed By: 03/11/25 1308 [facility] HospitalXR knee LT 3V - NOT FOR ER USEon 65-60-8862OY knee LT 3V - NOT FOR ER USEAVITA HEALTH SYSTEM [facility] [address] [place] [address] XRay Report Signed Patient: Simin Caro MR#: [id number] : 1970 Acct:[id number] Age/Sex: 55 / F ADM Date: 03/11/25 Loc: [facility] Room: Type: [facility] Attending Dr: Grant Alvarenga DO Copies [...] Ontiveros M.D. 03/11/2025 1:08 PM Dictation Location: [place] [address] Transcribed By: [facility] 03/11/25 1308 Dictated By: Arcadio Ontiveros DO 03/11/25 1308 Signed By: 03/11/25 1308[facility] Physician [facility] CenterAmphetamine Screen Ql (U)Ordered By: BARBARA ESPINOZA on 77-65-4688Hbdxvcnrxxci Ql (U)Amphetamines screenNegative [facility] HospitalBarbiturates [Presence] in Urine by Screen methodOrdered By: BARBARA ESPINOZA on 45-35-3682Wujumdjdfefz Screen Ql (U) Barbiturates [Presence] in Urine by Screen methodNegTriHealth Bethesda Butler HospitalBenzodiazepines Screen Ql (U)Ordered By: BARBARA ESPINOZA on 24-38-0095Mglsszdfhukzifx Ql (U)Benzodiazepines [Presence] in Urine by Screen methodNegTriHealth Bethesda Butler HospitalBenzoylecgonine [Presence] in Urine by Screen methodOrdered By: BARBARA ESPINOZA on 78-81-7625Cwnpoocypbqnxgf Screen Ql (U)Benzoylecgonine [Presence] in Urine by Screen methodNegative [facility] HospitalCannabinoids [Presence] in Urine by Screen methodOrdered By: BARBARA ESPINOZA on 79-31-3626Apqepwjnokhp Screen Ql (U) Cannabinoids [Presence] in Urine by Screen methodCleveland Clinic Euclid HospitalComment on above:These are unconfirmed results and should not be used for legal purposes. Drug Cut-Off Concentration: AMPH 1000 ng/mL WANG 200 ng/mL ROMEL 200 ng/mL COCM 300 ng/mL OP 300 ng/mL PCP 25 ng/mL THC 20 ng/mLDrug Screen,Urineon 01-59-1409Hqoomozccuh Screen,UrineNegativeNormalNegPorterville Developmental CenterComment on above:Performed By: #### URDS #### [facility] [address] [place] [address] USABarbiturate Screen,UrineNegativeNormalNegPorterville Developmental CenterComment on above:Performed By: #### URDS #### [facility] [address] [place] [id number] USABenzodiazepines Screen,UrineNegativeNormalNegativeThe Firelands Physician GroupComment on above:Performed By: #### URDS #### [place] [address] USACannabinoid Screen,UrinePositiveHighNegativeThe [facility] Appalachian Physician GroupComment on above:Result Comment: These are unconfirmed results and should not be used for legal purposes. Drug Cut-Off Concentration: AMPH 1000 ng/mL WANG 200 ng/mL ROMEL 200 ng/mL COCM 300 ng/mL OP 300 ng/mL PCP 25 ng/mL THC 20 ng/mL PERFORMED BY: [place] [address] PATHOLOGIST DINING MANAGER GIUSEPPE METZ M.D.Performed By: #### URDS #### [place] [address] USACocaine Screen,UrineNegativeNormalNegativeThe [facility]alachian Physician GroupComment on above:Performed By: #### URDS #### [place] [address] USAOpiate Screen,UrineNegativeNormalNegativeThe [facility]alachian Physician GroupComment on above:Performed By: #### URDS #### [place] [address] USAPhencyclidine Screen,UrineNegativeNormalNegativeThe [facility]alachian Physician GroupComment on above:Performed By: #### URDS #### [place] [address] USALon 09-16-2024 Specimen: [id number] Received: 09/16/24 Status: JUNIOR Oropeza Num: [id number] Spec Type: Surgical Subm Dr: Grant Alvarenga, DO Tissues: A Gross Only (LEFT KNEE) Procedures: Level 1 Gross Age/ Patient Sex Location Account Attending Physician Simin Caro 54/F NE [id number] Grant Alvarenga DO SPEC NUM: [id number] RECD: 09/16/24 STATUS: JUNIOR OROPEZA NUM: [id number] MATHEW: 09/16/[address] [facility] [address]: Grant Alvarenga DO ENTERED: 09/16/24 [facility] DR: LAURA TYPE: Surgical DEPT: S ENTERED BY: [id number] RECV BY: [id number] ORDERED: Level 1 Gross ORDERED: Level 1 [...] [id number] Received: 09/16/24 Status: JUNIOR Oropeza Num: [id number] Spec Type: Surgical Subm Dr: Grant Alvarenga DO Tissues: A Gross Only (LEFT KNEE) Procedures: Level 1 Gross Patient: Simin Caro [id number] (Continued) Specimen: [id number] Received: 09/16/24 (Continued) Signed (signature on file) Karla Hamlin MD 09/17/24 3131 Specimen: Received: 09/16/24 Status: JUNIOR Oropeza Num: [id number] Spec Type: Surgical Subm Dr: Grant Alvarenga DO Tissues: A Gross Only (LEFT KNEE) Procedures: Level 1 Gross Patient: Simin Caro Masoud [id number] (Continued) Specimen: Received: 09/16/24 (Continued) Microscopic Description Not performed CPT Codes 62384 Specimen: [id number] Received: 09/16/24 Status: JUNIOR Oropeza Num: [id number] Spec Type: Surgical Subm Dr: Grant Alvarenga DO Tissues: A Gross Only (LEFT KNEE) Procedures: Level 1 Gross Patient: Simin Caro [id number] (Continued) Signed (signature on file) Karla Hamlin MD 09/17/[address] [place] [address] Physician GroupOpiates [Presence] in Urine by Screen methodOrdered By: BARBARA ESPINOZA on 32-87-7568Gmrlifg Screen Ql (U)Opiates [Presence] in Urine by Screen methodNegTriHealth Bethesda Butler Hospital Phencyclidine Screen Ql (U)Ordered By: BARBARA ESPINOZA on 95-94-0066Ougysfqesbast Ql (U)Phencyclidine [Presence] in Urine by Screen methodNegTriHealth Bethesda Butler HospitalXR knee LT 2Von 49-23-5922GX knee LT 2VAV[facility] [place] [address] XRay Report Signed Patient: Simin Caro MR#: [id number] : 1970 Acct:[id number] Age/Sex: 54 / F ADM Date: 09/16/24 Loc: [place] Room: Type: [facility] Attending Dr: Grant Alvarenga DO Copies to: [...] Arcadio Ontiveros M.D.09/16/2024 4:05 PM Dictation Location: [place] [address] Transcribed By: [facility] 09/16/24 1605 Dictated By: Arcadio Ontiveros DO 09/16/24 1604 Signed By: 09/16/24 1605[facility] Physician GroupAlanine aminotransferase [Enzymatic activity/volume] in Serum or PlasmaOrdered By: Grant Alvarenga on 31-33-3719NJZ [Catalytic activity/Vol]Alanine aminotransferase [Enzymatic activity/volume] in Serum or Plasma7-52[facility] HospitalAlbumin [Mass/volume] in Serum or Plasma by Bromocresol green (BCG) dye binding metho Ordered By: Grant Alvarenga on 53-69-3823Jxrtgjp BCG dye [Mass/Vol]Albumin [Mass/volume] in Serum or Plasma by Bromocresol green (BCG) dye binding metho 3.5-5.7FOhioHealth Berger HospitalAlkaline phosphatase [Enzymatic activity/volume] in Serum or PlasmaOrdered By: Grant Alvarenga on 98-38-1900WYM [Catalytic activity/Vol]Alkaline phosphatase [Enzymatic activity/volume] in Serum or Marglo30-292HuwzmiqbkRiverside Methodist HospitalAppearance of UrineOrdered By: Grant Alvarenga on 83-22-1125Rhrmwelpsi (U)Urine appearanceCleACMC Healthcare SystemAspartate aminotransferase [Enzymatic activity/volume] in Serum or PlasmaOrdered By: Grant Alvarenga on 65-19-0384YUB [Catalytic activity/Vol]Aspartate aminotransferase [Enzymatic activity/volume] in Serum or Paxnha98-10DygtehaycRiverside Methodist HospitalBasophils Auto (Bld) [#/Vol]Ordered By: Grant Alvarenga on 75-62-5230Gixrkripr (Bld) [#/Vol]Automated basophil count 0.0-0.2FOhioHealth Berger HospitalBasophils/100 WBC Auto (Bld)Ordered By: Grant Alvarenga on 97-85-7731Rghxilidv/100 WBC (Bld)Automated basophil %.R[facility] HospitalBilirubin Test strip Ql (U)Ordered By: Grant Alvarenga on 83-34-9041Ckzzzjjni Ql (U)Bilirubin.total [Presence] in Urine by Test strip NegativeRiverside Methodist HospitalBilirubin.total [Mass/volume] in Serum or PlasmaOrdered By: Grant Alvarenga on 96-16-7841Nxlvpzbsx [Mass/Vol] Bilirubin.total [Mass/volume] in Serum or PlasmaLow0.3-1.0[facility] HospitalCMP with reflex to A1Con 74-66-5873Bcbqadc [Mass/Vol]4.0 g/dL Normal3.5-5.7The [facility] Appalachian Physician GroupComment on above:Performed By: #### CBC, CMP wRFX A1C #### [facility] [address] [place] [address] USAAlbumin/Globulin [Mass ratio]1.7 {ratio}NormalThe [facility] Appalachian Physician GroupComment on above:Performed By: #### CBC, CMP wRFX A1C #### [facility] [address] [place] [address] USAALP [Catalytic activity/Vol]76 U/XDepfsg41-716Dce [facility] Physician GroupComment on above:Result Comment: PERFORMED BY: [place] [address] PATHOLOGIST DINING MANAGER GIUSEPPE METZ M.D.Performed By: #### CBC, CMP wRFX A1C #### [facility] [address] [place] [address] USAALT [Catalytic activity/Vol]9 U/LNormal7-52The [facility]ach[facility] Physician GroupComment on above:Performed By: #### CBC, CMP wRFX A1C #### [facility] [address] [place] [address] USAAnion gap [Moles/Vol]9.2 mmol/LNormal6.0-15.0The [facility]alachian Physician GroupComment on above:Performed By: #### CBC, CMP wRFX A1C #### [facility] [address] [place] [address] USAAST [Catalytic activity/Vol]13 U/SXkuxbs19-70Axr [facility] Physician GroupComment on above:Performed By: #### CBC, CMP wRFX A1C #### [facility] [address] [place] [address] USABilirubin [Mass/Vol]0.2 mg/dLLow0.3-1.0The [facility] Physician GroupComment on above:Performed By: #### CBC, CMP wRFX A1C #### [facility] [address] [place] [address] USACalcium [Mass/Vol]9.3 mg/dLNormal8.6-10.3The [facility] Physician GroupComment on above:Performed By: #### CBC, CMP wRFX A1C #### [place] [address] USAChloride [Moles/Vol]104 mmol/FExhmjz01-638Drf [facility] Physician GroupComment on above:Performed By: #### CBC, CMP wRFX A1C #### [facility] [address] [place] [address] USACO2 [Moles/Vol]29.9 mmol/FLmtxxg56.0-31.0The [facility] Physician GroupComment on above:Performed By: #### CBC, CMP wRFX A1C #### [facility] [address] [place] [id number] USACreatinine [Mass/Vol]0.79 mg/dLNormal0.60-1.20The [facility] Physician GroupComment on above:Performed By: #### CBC, CMP wRFX A1C #### [facility] [address] [place] [address] USAGFR/1.73 sq M.predicted MDRD (S/P/Bld) [Vol rate/Area] mL/min/{1.73_m2}NormalThe [facility]ach[facility] Physician GroupComment on above:Performed By: #### CBC, CMP wRFX A1C #### [facility] [address] [place] [address] USAGlobulin (S) [Mass/Vol]2.4 g/dLNormalThe [facility]ach[facility] Physician GroupComment on above:Performed By: #### CBC, CMP wRFX A1C #### [place] [address] USAGlucose [Mass/Vol]94 mg/pTXdmxgi60-901Tzm [facility]alachian Physician GroupComment on above:Performed By: #### CBC, CMP wRFX A1C #### [place] [address] USAPotassium [Moles/Vol]4.1 mmol/LNormal3.5-5.1The [facility]alachian Physician GroupComment on above:Performed By: #### CBC, CMP wRFX A1C #### [place] [address] USAProtein [Mass/Vol]6.4 g/dLNormal6.4-8.9The [facility]achian Physician GroupComment on above:Performed By: #### CBC, CMP wRFX A1C #### [place] [address] USASodium [Moles/Vol]139 mmol/OMteggt830-119Use [facility] Physician GroupComment on above:Performed By: #### CBC, CMP wRFX A1C #### [place] [address] USAUrea nitrogen [Mass/Vol]6 mg/dLLow7-25The [facility]ian Physician GroupComment on above:Performed By: #### CBC, CMP wRFX A1C #### [place] [address] USACalcium [Mass/volume] in Serum or PlasmaOrdered By: Grant Alvarenga on 63-28-1045Yuzwvlo [Mass/Vol]Calcium [Mass/volume] in Serum or Plasma 8.6-10.3FOhioHealth Berger HospitalCarbon dioxide, total [Moles/volume] in Serum or PlasmaOrdered By: Grant Alvarenga on 84-65-5599WM0 [Moles/Vol]Carbon dioxide, total [Moles/volume] in Serum or Ngpkgp81.0-31.0[facility] HospitalChloride [Moles/volume] in Serum or PlasmaOrdered By: Grant Alvarenga on 13-65-6555Nloclvzv [Moles/Vol]Chloride [Moles/volume] in Serum or Fattzc95-985DjyrqcshtRiverside Methodist HospitalColor Auto (U)Ordered By: rGant Alvarenga on 66-71-6370Qiiyp (U)Color of Urine by AutoYellowRiverside Methodist HospitalComplete Blood Count Auto Diffon 07-53-0626Yjnapeekj (Bld) [#/Vol] 0.0 10*3/uLNormal0.0-0.2The [facility]alachian Physician GroupComment on above:Result Comment: PERFORMED BY: [place] [address] PATHOLOGIST DINING MANAGER GIUSEPPE METZ M.D.Performed By: #### CBC, CMP wRFX A1C #### [facility] [address] [place] [address] USABasophils/100 WBC (Bld)1.0 %Normal.The [facility] Physician GroupComment on above:Performed By: #### CBC, CMP wRFX A1C #### [facility] [address] [place] [address] USAEosinophils (Bld) [#/Vol]0.1 10*3/uLNormal0.0-0.45The [facility]achian Physician GroupComment on above:Performed By: #### CBC, CMP wRFX A1C #### [facility] [address] [place] [address] USAEosinophils/100 WBC (Bld)2.7 %Normal.The [facility]alachian Physician GroupComment on above:Performed By: #### CBC, CMP wRFX A1C #### [place] [address] USAErythrocyte distribution width (RBC) [Ratio]13.1 %Normal 11.9-15.3The [facility]alachian Physician GroupComment on above:Performed By: #### CBC, CMP wRFX A1C #### [place] [address] USAHematocrit (Bld) [Volume fraction]40.3 %Ncavnb19.0-46.4The [facility]alachian Physician GroupComment on above:Performed By: #### CBC, CMP wRFX A1C #### [place] [address] USAHemoglobin (Bld) [Mass/Vol]14.0 g/aMEjssfr99.8-15.4The [facility] Physician GroupComment on above:Performed By: #### CBC, CMP wRFX A1C #### [place] [address] USALymphocytes (Bld) [#/Vol]1.2 10*3/uLNormal1.00-4.8The [facility] Physician GroupComment on above:Performed By: #### CBC, CMP wRFX A1C #### [place] [address] USALymphocytes/100 WBC (Bld)32.1 %Normal.The [facility]ian Physician GroupComment on above:Performed By: #### CBC, CMP wRFX A1C #### [place] [address] USAMCH (RBC) [Entitic mass]29.1 uiRngrnb96.7-34.3The [facility]ian Physician GroupComment on above:Performed By: #### CBC, CMP wRFX A1C #### [place] [address] USAMCV (RBC) [Entitic vol]83.9 wQNbipkk80-880Zll [facility]ian Physician GroupComment on above:Performed By: #### CBC, CMP wRFX A1C #### [address] [place] [address] USAMean Corpuscular HGB Conc34.7 g/bEKkkhii07.0-35.0The [facility]ian Physician GroupComment on above:Performed By: #### CBC, CMP wRFX A1C #### [place] [address] USAMonocytes (Bld) [#/Vol]0.4 10*3/uLNormal0.0-0.8The [facility] Physician GroupComment on above:Performed By: #### CBC, CMP wRFX A1C #### [place] [address] USAMonocytes/100 WBC (Bld)10.5 %Normal.The [facility]ian Physician GroupComment on above:Performed By: #### CBC, CMP wRFX A1C #### [place] [address] USANeutrophils (Bld) [#/Vol]2.0 10*3/uLNormal1.8-7.7The [facility] Physician GroupComment on above:Performed By: #### CBC, CMP wRFX A1C #### [place] [address] USANeutrophils/100 WBC (Bld)53.7 %Normal.The [facility]alachian Physician GroupComment on above:Performed By: #### CBC, CMP wRFX A1C #### [place] [address] USANRBC%0.1 /100{WBC}Normal0-0.5The [facility] Comment on above:Performed By: #### CBC, CMP wRFX A1C #### [place] [address] USAPlatelet mean volume (Bld) [Entitic vol]8.0 fLNormal 6.3-10.7The [facility]alachian Physician GroupComment on above:Performed By: #### CBC, CMP wRFX A1C #### [place] [address] USAPlatelets (Bld) [#/Vol]276 10*3/gSMmnndf890-356Lzh [facility]ian Physician GroupComment on above:Performed By: #### CBC, CMP wRFX A1C #### [facility] [address] [place] [address] USARBC (Bld) [#/Vol]4.81 10*6/uLNormal3.60-5.00The [facility]alachian Physician GroupComment on above:Performed By: #### CBC, CMP wRFX A1C #### [facility] [address] [place] [address] USAWBC (Bld) [#/Vol]3.7 10*3/uLLow3.8-11.6The [facility]achian Physician GroupComment on above:Performed By: #### CBC, CMP wRFX A1C #### [facility] [address] [place] [address] USACreatinine [Mass/volume] in Serum or PlasmaOrdered By: Grant Alvarenga on 00-38-1097Uqnaowlmqg [Mass/Vol]Creatinine [Mass/volume] in Serum or Plasma0.60-1.20[facility] HospitalECG 12 lead ECGon 46-86-9913VXM 12 lead ECGAVITA HEALTH SYSTEM [facility] [place] [address] [place] [address] Electrocardiograph Report Signed Patient: Simin Caro MR#: [id number] : 1970 Acct:[id number] Age/Sex: 54 / F ADM Date: 09/04/24 Loc: Room: Type: [facility] Attending Dr: Grant Alvarenga DO Ordering [...] Signed By Alfredo Galeano MD 0 09/04/[address] [place] [address] Physician GroupEosinophils Auto (Bld) [#/Vol] Ordered By: Grant Alvarenga on 52-49-5313Kdqfvmjlavb (Bld) [#/Vol]Automated eosinophil count0.0-0.45[facility] HospitalEosinophils/100 WBC Auto (Bld)Ordered By: Grant Alvarenga on 46-62-4129Nhuhfdncgpw/100 WBC (Bld) Automated eosinophil %.[facility] HospitalErythrocyte distribution width Auto (RBC) [Ratio]Ordered By: Grant Alvarenga on 77-78-2393Ayfterxamed distribution width (RBC) [Ratio]Erythrocyte distribution width [Ratio] by Automated count11.9-15.3FOhioHealth Berger HospitalGlobulin Calc (S) [Mass/Vol]Ordered By: Grant Alvarenga on 86-33-7490Noaligbl (S) [Mass/Vol]Serum globulin measurement by calculation (mass/volume)[facility] HospitalGlucose [Mass/volume] in Serum or PlasmaOrdered By: Grant Alvarenga on 44-90-8277Hrekgtl [Mass/Vol]Glucose [Mass/volume] in Serum or Keavmu19-220 [facility] HospitalGlucose [Mass/volume] in Urine by Test strip Ordered By: Grant Alvarenga on 41-88-3966Nkuogwg Test strip (U) [Mass/Vol]Glucose [Mass/volume] in Urine by Test stripNormalRiverside Methodist Hospital Hematocrit Auto (Bld) [Volume fraction]Ordered By: Grant Alvarenga on 09-04-2024 Hematocrit (Bld) [Volume fraction]Hematocrit [Volume Fraction] of Blood by Automated count34.0-46.4FOhioHealth Berger HospitalHemoglobin Test strip Ql (U)Ordered By: Grant Alvarenga on 62-18-4663Boqbxeoiqo Ql (U)Hemoglobin [Presence] in Urine by Test stripNegativeRiverside Methodist Hospital Hemoglobin [Mass/volume] in BloodOrdered By: Grant Alvarenga on 02-06-2025 Hemoglobin (Bld) [Mass/Vol]Hemoglobin [Mass/volume] in Blood11.8-15.4FOhioHealth Berger HospitalKetones Test strip Ql (U)Ordered By: Grant Alvarenga on 36-01-2349Gzritvj Ql (U)Ketones [Presence] in Urine by Test stripNegative [facility] HospitalLeukocyte esterase [Presence] in Urine by Test stripOrdered By: Grant Alvarenga on 78-95-5972Giimomize esterase Test strip Ql (U) Leukocyte esterase [Presence] in Urine by Test stripNegativeRiverside Methodist HospitalLeukocytes [#/volume] corrected for nucleated erythrocytes in Blood by Automated counOrdered By: Grant Alvarenga on 25-48-9191TTO corrected for nucl RBC Auto (Bld) [#/Vol]Leukocytes [#/volume] corrected for nucleated erythrocytes in Blood by Automated counLow3.8-11.6FOhioHealth Berger HospitalLymphocytes Auto (Bld) [#/Vol]Ordered By: Grant Alvarenga on 09-04-2024 Lymphocytes (Bld) [#/Vol]Lymphocytes [#/volume] in Blood by Automated count 1.00-4.8[facility] HospitalLymphocytes/100 WBC Auto (Bld)Ordered By: Grant Alvarenga on 40-81-9596Fgvezhojhcn/100 WBC (Bld)Lymphocytes/100 leukocytes in Blood by Automated count.[facility] CenterH Auto (RBC) [Entitic mass]Ordered By: Grant Alvarenga on 98-83-0528JWK (RBC) [Entitic mass]MCH [Entitic mass] by Automated count24.7-34.3FGood Samaritan HospitalHC Auto (RBC) [Mass/Vol]Ordered By: Grant Alvarenga on 81-87-3238JTZJ (RBC) [Mass/Vol]MCHC [Mass/volume] by Automated count32.0-35.0[facility] HospitalMCV Auto (RBC) [Entitic vol]Ordered By: Grant Alvarenga on 14-58-1419LBB (RBC) [Entitic vol]MCV [Entitic volume] by Automated -752 [facility] HospitalMonocytes Auto (Bld) [#/Vol]Ordered By: Grant Alvarenga on 02-10-0932Hiyytutxa (Bld) [#/Vol]Automated blood monocyte count0.0-0.8 [facility] HospitalMonocytes/100 WBC Auto (Bld)Ordered By: Grant Alvarenga on 32-07-9482Ecxbdpmao/100 WBC (Bld)Automated monocyte %.[facility] HospitalNeutrophils Auto (Bld) [#/Vol]Ordered By: Grant Alvarenga on 86-57-7063Dpoabjgcdnj (Bld) [#/Vol]Neutrophils [#/volume] in Blood by Automated count1.8-7.7FOhioHealth Berger HospitalNeutrophils/100 WBC Auto (Bld)Ordered By: Grant Alvarenga on 99-04-2493Pvdngfzwncz/100 WBC (Bld)Automated neutrophil %.[facility] HospitalNitrite Test strip Ql (U)Ordered By: Grant Alvarenga on 98-59-2822Ilpfort Ql (U)Nitrite [Presence] in Urine by Test stripNegativeRiverside Methodist HospitalNo Panel InformationOrdered By: Grant Alvarenga on 60-59-5297Qgiwwedxc GFR (CKD-EPI)> 60.0 mL/MinRiverside Methodist HospitalPharmacy Creatinine Clearance (ChemN/AFOhioHealth Berger HospitalNucleated erythrocytes [Presence] in Blood by Automated count Ordered By: Grant Alvarenga on 82-34-9789Yptzkgpkq RBC Auto Ql (Bld)Nucleated erythrocytes [Presence] in Blood by Automated count0-0.5FOhioHealth Berger HospitalPlatelet mean volume Auto (Bld) [Entitic vol]Ordered By: Grant Alvarenga on 92-88-3864Gitzxznw mean volume (Bld) [Entitic vol]Platelet mean volume [Entitic volume] in Blood by Automated count6.3-10.7FOhioHealth Berger HospitalPlatelets Auto (Bld) [#/Vol]Ordered By: Grant Alvarenga on 09-04-2024 Platelets (Bld) [#/Vol]Platelets [#/volume] in Blood by Automated izbtm971-741 [facility] HospitalPotassium [Moles/volume] in Serum or Plasma Ordered By: Grant Alvarenga on 25-08-3165Ggegnzlty [Moles/Vol]Potassium [Moles/volume] in Serum or Plasma3.5-5.1FOhioHealth Berger HospitalProtein Test strip (U) [Mass/Vol]Ordered By: Grant Alvarenga on 16-65-3236Ipggamm (U) [Mass/Vol]Protein [Mass/volume] in Urine by Test stripNegativeRiverside Methodist HospitalProtein [Mass/volume] in Serum or PlasmaOrdered By: Grant Alvarenga on 22-00-0228Dmaauvg [Mass/Vol]Protein [Mass/volume] in Serum or Plasma6.4-8.9 [facility] HospitalRBC Auto (Bld) [#/Vol]Ordered By: Grant Alvarenga on 29-47-7967ETG (Bld) [#/Vol]Erythrocytes [#/volume] in Blood by Automated count3.60-5.00[facility]aritan Medical Centererum or plasma albumin/globulin mass ratioOrdered By: Grant Alvarenga on 17-29-9936Tqfuhxn/Globulin [Mass ratio] Serum or plasma albumin/globulin mass ratioRiverside Methodist Hospital Serum or plasma anion gap determinationOrdered By: Grant Alvarenga on 09-04-2024 Anion gap [Moles/Vol]Serum or plasma anion gap determination6.0-15.0[facility]aritan Medical Centerodium [Moles/volume] in Serum or PlasmaOrdered By: Grant Alvarenga on 61-33-8839Keagjl [Moles/Vol]Sodium [Moles/volume] in Serum or Rbnhwh578-540ZrmghvafbUniversity Hospitals Samaritan Medical Centerpecific gravity Test strip (U) [Rel density]Ordered By: Grant Alvarenga on 61-12-5583Vgwzxsrf gravity (U) [Rel density]Specific gravity of Urine by Test strip1.001-1.030[facility] HospitalUrea nitrogen [Mass/volume] in Serum or PlasmaOrdered By: Grant Alvarenga on 90-85-1444Fcyi nitrogen [Mass/Vol]Urea nitrogen [Mass/volume] in Serum or PlasmaLow7-25[facility] Methodist HospitalUrinalysison 09-04-2024 Appearance (U)ClearNormalClearThe Un[facility] Appalachian Physician GroupComment on above: Order Comment: Name Collection Type:: Clean-Voided MidstreamPerformed By: #### UA #### [facility] [address] [place] [address] USABilirubin,UrineNegativeNormalNegativeThe [facility] Appalachian Physician GroupComment on above:Order Comment: Name Collection Type:: Clean- Voided MidstreamPerformed By: #### UA #### [facility] [address] [place] [address] USAColor (U)Light-YellowNormalYellowThe [facility] Appalachian Physician GroupComment on above:Order Comment: Name Collection Type:: Clean-Voided MidstreamPerformed By: #### UA #### [place] [id number] USAGlucose Ql (U)NormalNormalNormalThe [facility] Appalachian Physician GroupComment on above:Order Comment: Name Collection Type:: Clean-Voided MidstreamPerformed By: #### UA #### [address] [address] USAKetones Ql (U)NegativeNormalNegativeThe [facility] Appalachian Physician GroupComment on above:Order Comment: Name Collection Type:: Clean- Voided MidstreamPerformed By: #### UA #### [facility] [address] [place] [address] USALeukocyte esterase Test strip Ql (U)NegativeNormalNegative The [facility]alachian Physician GroupComment on above:Order Comment: Name Collection Type:: Clean-Voided MidstreamPerformed By: #### UA #### [address] [address] USANitrite,UrineNegativeNormalNegativeThe [facility]alachian Physician GroupComment on above:Order Comment: Name Collection Type:: Clean-Voided MidstreamPerformed By: #### UA #### [place] [id number] USAOccult Blood,UrineNegativeNormalNegativeThe [facility] Appalachian Physician GroupComment on above:Order Comment: Name Collection Type:: Clean- Voided MidstreamResult Comment: PERFORMED BY: [place] [address] PATHOLOGIST DINING MANAGER MOHAMED M EL-FAKHARANY M.D.Performed By: #### UA #### [place] [address] USApH (U)7.5 [pH]Normal5.0-9.0The [facility] Comment on above:Order Comment: Name Collection Type:: Clean-Voided Midstream Performed By: #### UA #### [place] [address] USAProtein,UrineNegativeNormalNegativeThe [facility]alachian Physician GroupComment on above:Order Comment: Name Collection Type:: Clean-Voided MidstreamPerformed By: #### UA #### [place] [address] USASpecificy [place],Urine1.726Zdlzgp8.001-1.030The [facility]alachian Physician GroupComment on above:Order Comment: Name Collection Type:: Clean- Voided MidstreamPerformed By: #### UA #### [place] [address] USAUrobilinogen,UrineNormalNormalNormalThe [facility]alachian Physician GroupComment on above:Order Comment: Name Collection Type:: Clean- Voided MidstreamPerformed By: #### UA #### [place] [id number] USAUrobilinogen Test strip (U) [Mass/Vol]Ordered By: Grant Alvarenga on 43-11-9528Ekdhmlhutavy (U) [Mass/Vol]Urobilinogen [Mass/volume] in Urine by Test stripNoUniversity Hospitals Lake West Medical CenterWBC Auto (Bld) [#/Vol] Ordered By: Grant Alvarenga on 19-96-2332WZR (Bld) [#/Vol]Leukocytes [#/volume] in Blood by Automated countLow3.8-11.6FOhioHealth Berger HospitalpH Test strip (U)Ordered By: Grant Alvarenga on 60-87-2076yJ (U)pH of Urine by Test strip 5.0-9.0[facility] HospitalX-ray reportOrdered By: Fabio Oates on 22-43-4284Podku reportAVITA HEALTH SYSTEM ONTARIO [facility] [address] [place] [address] XRay Report Signed Patient: Simin Caro MR#: [id number] : 1970 Acct:[id number] Age/Sex: 54 / F ADM Date: 5 Loc: [facility] Room: Type: REG CLI Attending Dr: Grant [...] Oates Jr., D.OHarris09/01/2024 3:12 PM Dictation Location: [place] [address] Transcribed By: [facility] 09/01/24 151 Dictated By: Fabio Oates Jr, DO 09/01/24 1512 Signed By: 09/01/24 [facility]2 [facility] HospitalXR knee LT 3V - NOT FOR ER USEon 47-68-6327EG knee LT 3V - NOT FOR ER USEAVITA HEALTH SYSTEM ONTARIO [facility]OSPITAL [facility] [place] [address] XRay Report Signed Patient: Simin Caro MR#: [id number] : 1970 Acct:[id number] Age/Sex: 54 / F ADM Date: 09/01/24 Loc: [facility] Room: Type: REG CLI Attending Dr: Grant [...] Oates Jr., D.OHarris09/01/2024 3:12 PM Dictation Location: [place] [address] Transcribed By: [facility] 09/01/24 1512 Dictated By: Fabio Oates Jr, DO 09/01/24 151 Signed By: 09/01/24 [facility] CenterXR FOOT RT MIN 3 VIEWSon 25-69-5020SD FOOT RT MIN 3 VIEWSEXAM: XR FOOT [...] Electronically authenticated by: Elizabeth INFANTE Date: 2022-11-10 23:57[facility] KIDNEYS BLADDERon 86-54-9228BY KIDNEYS BLADDERUS KIDNEYS BLADDER EXAM DATE: 09/23/2022 6:34 AM MST COMPARISON: None available. INDICATION: Recurrent UTI. TECHNIQUE: Real-time ultrasound scanning of the kidneys and bladder was performed by the travertine installer. Clearance Diver static images are submitted for review. FINDINGS: [...] Electronically authenticated by: NEEL WEBBER Date: 2022-09-23 14:49NoRiverview Health Institute AUTO DIFFon 87-41-6010JRKU #0.0 103/ulNormal0.0-0.1The [facility] HospitalComment on above:Performed By: #### CBC #### [facility] [address] [place] [address] [address] Arianna HamlinBasophils/100 WBC (Bld)0.3 %Normal0.2-2.0[facility] Comment on above:Performed By: #### CBC #### [facility] [address] [place] [address] [address] Arianna Salamanca #0.0 103/ulNormal0.0-0.7The [facility] HospitalComment on above: Performed By: #### CBC #### [facility] [address] [place] [address] [address] Arianna Pérezosinophils/100 WBC (Bld)0.1 %Critically low0.9-7.0The [facility] HospitalComment on above:Performed By: #### CBC #### [facility] [address] [place] [address] [address] Arianna Pérezrythrocyte distribution width (RBC) [Ratio]12.2 %Lrpmgg37.0-15.0 The [facility] HospitalComment on above:Performed By: #### CBC #### [facility] [address] [place] [address] [address] Arianna HamlinHematocrit (Bld) [Volume fraction]35.9 %Critically low36.0-48.0 [facility] CenterComment on above:Performed By: #### CBC #### [facility] [address] [place] [address] Dr. Arianna HamlinHemoglobin (Bld) [Mass/Vol]12.0 g/jAFywjdp12.0-16.0The [facility] HospitalComment on above:Performed By: #### CBC #### [facility] [address] [place] [address] Dr. Arianna Quezada #0.02 10e3/ulNormal0.00-0.03The [facility] HospitalComment on above:Performed By: #### CBC #### [facility] [address] [place] [address] Dr. Arianna Quezada %0.3 %Normal0.0-0.5The [facility] HospitalComment on above: Performed By: #### CBC #### [facility] [address] [place] [address] Dr. Arianna Gonzalez #1.8 103/ulNormal1.2-3.8The [facility] HospitalComment on above:Performed By: #### CBC #### [facility] [address] [place] [address] Dr. Arianna Morillohocytes/100 WBC (Bld)22.8 %Uxktim76.5-60.0The [facility] HospitalComment on above:Performed By: #### CBC #### [facility] [address] [place] [address] Dr. Arianna NicholsUAL DIFF REQNONormalThe [facility] HospitalComment on above: Performed By: #### CBC #### [facility] [address] [place] [address] Dr. Arianna Serrano (RBC) [Entitic mass]27.8 osMjuhzb25.7-34.0The [facility] HospitalComment on above:Performed By: #### CBC #### [facility] [address] [place] [address] Dr. Arianna Serrano (RBC) [Mass/Vol]33.4 g/oEHxpeot34.9-35.2The [facility] HospitalComment on above:Performed By: #### CBC #### [facility] [address] [place] [address] Dr. Arianna Serrano (RBC) [Entitic vol]83.1 wKWbfhey72.0-99.0The [facility] HospitalComment on above:Performed By: #### CBC #### [facility] [address] [place] [address] [address] Arianna Carpenter #0.9 103/ulCritically high0.3-0.8The [facility] Comment on above:Performed By: #### CBC #### [facility] [address] [place] [address] Dr. Arianna Avilaocytes/100 WBC (Bld)10.8 %Normal1.7-12.0The [facility] Comment on above:Performed By: #### CBC #### [facility] [address] [place] [address] Dr. Arianna March #5.2 103/ulNormal1.4-6.5The [facility] HospitalComment on above:Performed By: #### CBC #### [facility] [address] [place] [address] Dr. Arianna Khanutrophils/100 WBC (Bld)65.7 %Sqyijc50.0-75.0The [facility] HospitalComment on above:Performed By: #### CBC #### [facility] [address] [place] [address] Dr. Arianna Gomez mean volume (Bld) [Entitic vol]10.2 fLNormal9.5-13.5The [facility] HospitalComment on above:Performed By: #### CBC #### [facility] [address] [place] [address] Dr. Arianna HamlinPLT243 103/vdLtdgja255-036Hec [facility] HospitalComment on above: Performed By: #### CBC #### [facility] [address] [place] [address] Dr. Arianna HamlinRBC4.32 106/ulNormal4.20-5.40The [facility] HospitalComment on above:Performed By: #### CBC #### [facility] [address] [place] [address] Dr. Arianna HamlinWBC7.9 103/ulNormal4.0-11.0The [facility] HospitalComment on above: Performed By: #### CBC #### [facility] [address] [place] [address] [address] Arianna HamlinPROF CHEM 8 (BAS METB)on 51-47-1502Zueci gap [Moles/Vol]10.8 mmol/LNormalThe [facility] HospitalComment on above:Performed By: #### BMP #### [facility] [address] [place] [address] [address] Arianna HamlinCalcium [Mass/Vol]9.0 mg/dLNormal8.5-10.1The [facility] Comment on above:Performed By: #### BMP #### [facility] [address] [place] [address] Dr. Arianna HamlinChloride [Moles/Vol]101 mmol/AGgzaei55-297Vkq [facility] Comment on above:Performed By: #### BMP #### Select [facility] [address] [place] [address] Dr. Arianna HamlinCO2 [Moles/Vol]30.8 mmol/ZLfehec69.0-32.0The [facility] Comment on above:Performed By: #### BMP #### [facility] [address] [place] [address] Dr. Arianna HamlinCreatinine [Mass/Vol]0.79 mg/dLNormal0.55-1.02The [facility] HospitalComment on above:Performed By: #### BMP #### [facility] [address] [place] [address] Dr. Arianna PérezGFR-AF ALBANIAN>60Normal>=60The [facility] HospitalComment on above:Performed By: #### BMP #### [facility] [address] [address] [address] Arianna PérezGFR-NON AF ALBANIAN>60Normal>=60The [facility] HospitalComment on above:Performed By: #### BMP #### [facility] [address] [address] [address] Arianna HamlinGlucose [Mass/Vol]110 mg/dLCritically jzpv13-819Vwc Plains HospitalComment on above:Performed By: #### BMP #### [facility] [address] [address] [address] Arianna HamlinPotassium [Moles/Vol]3.6 mmol/LNormal3.5-5.1[facility] Comment on above:Performed By: #### BMP #### [facility] [address] [address] [address] Arianna HamlinSodium [Moles/Vol]139 mmol/TUtnpam121-599Kke [facility] Comment on above:Performed By: #### BMP #### [facility] [address] [address] [address] Arianna HamlinUrea nitrogen [Mass/Vol]8.0 mg/dLNormal7.0-18.0The [facility] CenterComment on above:Performed By: #### BMP #### [facility] [address] [address] [address] Arianna HamlinUrea nitrogen/Creatinine [Mass ratio]10.1 mg/mgNormalThe [facility] HospitalComment on above:Performed By: #### BMP #### [facility] [address] [address] [address] Arianna Yee RANDOMon 38-17-2277Daelpnxuk Ql (U)NegativeNormalNEGATIVEThe [facility] CenterComment on above:Performed By: #### CBC #### [facility] [address] [address] [address] Arianna HamlinClarity (U)CLEARNormalCLEARThe [facility] HospitalComment on above: Performed By: #### CBC #### [facility] [address] [address] [address] Arianna HamlinGlucose Ql (U)NegativeNormalNEGATIVEThe [facility] CenterComment on above:Performed By: #### CBC #### [facility] [address] [address] [address] Arianna HamlinHemoglobin Ql (U)NegativeNormalNEGPomerene Hospital Comment on above:Performed By: #### CBC #### [facility] [address] [place] [address] Dr. Arianna Sargent Ql (U)NegativeNormalNEGATIVEThe [facility] HospitalComment on above:Performed By: #### CBC #### [facility] [address] [place] [address] Dr. Arianna HamlinLEUKOCYTESMODERATEAbnormalNEGATIVEThe [facility] HospitalComment on above:Performed By: #### CBC #### [facility] [address] [place] [address] Dr. Arianna Browntrite Ql (U)NegativeNormalNEGATIVEThe Plains HospitalComment on above:Performed By: #### CBC #### [facility] [address] [place] [address] Dr. Arianna HamlinpH (U)7.0 [pH]Normal5-9The [facility] HospitalComment on above: Performed By: #### CBC #### [facility] [address] [place] [address] Dr. Arianna HamlinSPEC GRAVITY1.948Butkbn5.005-<=1.025The [facility] HospitalComment on above:Performed By: #### CBC #### [facility] [address] [place] [address] Dr. Arianna HamlinUA PROTEINNegativeNormalNEGATIVE/ TRACEThe [facility] Comment on above:Performed By: #### CBC #### [facility] [address] [place] [address] Dr. Arianna Vossbilinogen Qn (U)0.2 {Ayden'U}/dLNormal0.2 - 1.0The [facility] HospitalComment on above:Performed By: #### CBC #### [facility] [address] [place] [address] Dr. Arianna HamlinXR FOOT RT 2Von 04-59-2033SW FOOT RT 2VEXAM: XR FOOT RT 2V HISTORY: Pain COMPARISON: 06/20/2022 TECHNIQUE: 3 minutes of fluoroscopy. 41 fluoroscopic images FINDINGS: Fluoroscopic images demonstrate subtalar fusion with 2 screws. Medial midfoot hindfoot fusion utilizing a plate, surgical staple and multiple screws. Anatomic alignment. IMPRESSION: Intraprocedural images demonstrating medial foot and subtalar fusion Electronically authenticated by: BARBARA HERNANDEZ Date: 2022-08-15 08:59[facility] HospitalPOINT [facility] CARE GLUCOSEon 40-25-0007Yuaopxw [Mass/Vol]138 mg/dL Critically cgog32-469VegThe University Of Toledo Medical CenterComment on above:Performed By: #### POCGLUC #### [facility] [address] [place] [address] Dr. Arianna HamlinGlucose [Mass/Vol]94 mg/gFMccvgl89-703OucThe [facility] Comment on above:Performed By: #### POCGLUC #### [facility] [address] [place] [address] Dr. Arianna Aparicio AUTO DIFFon 52-66-6608JLCQ #0.0 103/ulNormal0.0-0.1The [facility] CenterComment on above:Performed By: #### CBC #### [facility] [address] [place] [address] Dr. Arianna HamlinBasophils/100 WBC (Bld)0.7 %Normal0.2-2.0[facility] Comment on above:Performed By: #### CBC #### [facility] [address] [place] [address] Dr. Arianna Salamanca #0.1 103/ulNormal0.0-0.7The [facility] HospitalComment on above: Performed By: #### CBC #### [facility] [address] [place] [address] Dr. Arianna Pérezosinophils/100 WBC (Bld)1.3 %Normal0.9-7.0[facility] Comment on above:Performed By: #### CBC #### [facility] [address] [place] [address] Dr. Arianna Pérezrythrocyte distribution width (RBC) [Ratio]12.3 %Erxmzs76.0-15.0 The [facility] CenterComment on above:Performed By: #### CBC #### [facility] [address] [place] [address] Dr. Arianna HamlinHematocrit (Bld) [Volume fraction]38.4 %Qxourn71.0-48.0The [facility] HospitalComment on above:Performed By: #### CBC #### [facility] [address] [place] [address] Dr. Arianna HamlinHemoglobin (Bld) [Mass/Vol]13.2 g/oVTwjdlj39.0-16.0The [facility] HospitalComment on above:Performed By: #### CBC #### [facility] [address] [place] [address] Dr. Arianna HamlinIG #0.01 10e3/ulNormal0.00-0.03The [facility] HospitalComment on above:Performed By: #### CBC #### [facility] [address] [place] [address] Dr. Arianna HamlinIG %0.2 %Normal0.0-0.5The [facility] HospitalComment on above: Performed By: #### CBC #### [facility] [address] [place] [address] Dr. Arianna MorilloH #1.8 103/ulNormal1.2-3.8The [facility] HospitalComment on above:Performed By: #### CBC #### [facility] [address] [place] [address] Dr. Arianna Crandallmphocytes/100 WBC (Bld)30.8 %Eqpaen06.5-60.0The [facility] HospitalComment on above:Performed By: #### CBC #### [facility] [address] [place] [address] Dr. Arianna HamlinMANUAL DIFF REQNONormalThe [facility] HospitalComment on above: Performed By: #### CBC #### [facility] [address] [place] [address] Dr. Arianna Jones (RBC) [Entitic mass]27.7 kmKcipjb99.7-34.0The [facility] HospitalComment on above:Performed By: #### CBC #### [facility] [address] [place], [place] [id number] Dr. Arianna SerranoHC (RBC) [Mass/Vol]34.4 g/vOLmcsov47.9-35.2The [facility] HospitalComment on above:Performed By: #### CBC #### [facility] [address] [place] [address] Dr. Arianna SerranoV (RBC) [Entitic vol]80.7 fLCritically low81.0-99.0The [facility] HospitalComment on above:Performed By: #### CBC #### [facility] [address] [place] [address] Dr. Arianna Carpenter #0.4 103/ulNormal0.3-0.8The [facility] HospitalComment on above:Performed By: #### CBC #### [facility] [address] [place] [address] Dr. Arianna Avilaocytes/100 WBC (Bld)7.1 %Normal1.7-12.0The [facility] Comment on above:Performed By: #### CBC #### [facility] [address] [place] [address] Dr. Arianna March #3.6 103/ulNormal1.4-6.5The [facility] HospitalComment on above:Performed By: #### CBC #### [facility] [address] [place] [address] Dr. Arianna Khanutrophils/100 WBC (Bld)59.9 %Kkprcr44.0-75.0The [facility] HospitalComment on above:Performed By: #### CBC #### [facility] [address] [place] [address] Dr. Arianna Campbelllet mean volume (Bld) [Entitic vol]9.5 fLNormal9.5-13.5The [facility] HospitalComment on above:Performed By: #### CBC #### [facility] [address] [place] [address] Dr. Arianna EncarnacionT248 103/jaDsmnev744-543Rqp [facility] HospitalComment on above: Performed By: #### CBC #### [facility] [address] [place] [address] Dr. Arianna HamlinRBC4.76 106/ulNormal4.20-5.40The [facility] HospitalComment on above:Performed By: #### CBC #### [facility] [address] [place] [address] Dr. Arianna HamlinWBC5.9 103/ulNormal4.0-11.0The [facility] HospitalComment on above: Performed By: #### CBC #### [facility] [address] [place] [address] Dr. Arianna HamlinCovid-19 PCR (CVDTB)on 82-12-5434JQLV-CoV-2 (COVID-19) RNA RICHARD+probe Ql (Unsp spec)Not detectedNormalNOT DETECTEDThe [facility] Comment on above:Result Comment: This test is not yet approved or cleared by the [place] FDA. When there are no FDA-approved or cleared tests available, and other criteria are met, FDA can make tests available under an emergency access mechanism called an Emergency Use Authorization (EUA). The EUA for this test is supported by the Manager Human Resources of Health and Human Service's (HHS's) declaration [...] consistent with SARS-CoV-2.Performed By: #### CVDTBH #### [facility] [address] [place] [address] Dr. Arianna HamlinPRORoger CHEM 8 (BAS METB)on 31-53-1117Hbmpq gap [Moles/Vol]10.1 mmol/LNormalThe [facility] HospitalComment on above:Performed By: #### BMP #### [facility] [address] [address] [address] Arianna HamlinCalcium [Mass/Vol]9.2 mg/dLNormal8.5-10.1The [facility] Comment on above:Performed By: #### BMP #### [facility] [address] [address] [address] Arianna HamlinChloride [Moles/Vol]103 mmol/JDaykpn73-173Jom [facility] Comment on above:Performed By: #### BMP #### [facility] [address] [place] [address] Dr. Arianna HamlinCO2 [Moles/Vol]30.7 mmol/RRhkior01.0-32.0The [facility] Comment on above:Performed By: #### BMP #### [facility] [address] [place] [address] Dr. Arianna HamlinCreatinine [Mass/Vol]0.86 mg/dLNormal0.55-1.02The [facility] HospitalComment on above:Performed By: #### BMP #### [facility] [address] [place] [address] Dr. Keller ChangEGFR-AF ALBANIAN>60Normal>=60The [facility] HospitalComment on above:Performed By: #### BMP #### [facility] [address] [place] [address] Dr. Arianna PérezGFR-NON AF ALBANIAN>60Normal>=60The [facility] HospitalComment on above:Performed By: #### BMP #### [facility] [address] [place] [address] Dr. Arianna HamlinGlucose [Mass/Vol]77 mg/sSAfwbsw74-134EgwThe [facility] Comment on above:Performed By: #### BMP #### [facility] [address] [place] [address] Dr. Arianna HamlinPotassium [Moles/Vol]3.8 mmol/LNormal3.5-5.1The [facility] Comment on above:Performed By: #### BMP #### [facility] [address] [place] [address] Dr. Yilan ChangSodium [Moles/Vol]140 mmol/SSjlkrp363-875VshThe [facility] Comment on above:Performed By: #### BMP #### [facility] [address] [address] [address] Arianna HamlinUrea nitrogen [Mass/Vol]8.0 mg/dLNormal7.0-18.0The [facility] CenterComment on above:Performed By: #### BMP #### [facility] [address] [address] [address] Arianna HamlinUrea nitrogen/Creatinine [Mass ratio]9.3 mg/mgNormalThe [facility] HospitalComment on above:Performed By: #### BMP #### [facility] [address] [place] [address] Dr. Arianna HmalinCovid-19 PCR ([facility])on 10-73-5688DHDV-CoV-2 (COVID-19) RNA RICHARD+probe Ql (Unsp spec)Not detectedNormalNOT DETECTEDThe [facility] Comment on above:Result Comment: This test is not yet approved or cleared by the [place] FDA. When there are no FDA-approved or cleared tests available, and other criteria are met, FDA can make tests available under an emergency access mechanism called an Emergency Use Authorization (EUA). The EUA for this test is supported by the Manager Human Resources of Health and Human Service's (HHS's) declaration [...] consistent with SARS-CoV-2.Performed By: #### BMP #### [facility] [address] [place] [address] Dr. Arianna HamlinMRI ANKLE RT WO CONon [id number] ANKLE RT WO CONEXAM: MRI ANKLE RT [...] authenticated by: DALTON ALVARENGA Date: 2022-06-24 12:09NormalThe [facility] PYLORI TISSUEon 05-17-2022H PYL TISSUE, UREASENegativeNormal NEGATIVEThe [facility] HospitalComment on above:Performed By: #### BMP #### [facility] [address] [place] [address] Dr. Arianna HamlinCovid-19 PCR ([facility])on 48-87-2629WJLG-CoV-2 (COVID-19) RNA RICHARD+probe Ql (Unsp spec)Not detectedNormalNOT DETECTEDThe [facility] Comment on above:Result Comment: This test is not yet approved or cleared by the [place] FDA. When there are no FDA-approved or cleared tests available, and other criteria are met, FDA can make tests available under an emergency access mechanism called an Emergency Use Authorization (EUA). The EUA for this test is supported by the Manager Human Resources of Health and Human Service's (HHS's) declaration [...] consistent with SARS-CoV-2.Performed By: #### CVDTBH #### [facility] [address] [place], [place] [address] Dr. Arianna Norwood by IFAon 82-75-3422Jkavtynlcux Antibodies, IFANegativeNormal The [facility] HospitalComment on above:Result Comment: Negative <1:80 Borderline 1:80 Positive >1:80 ICAP nomenclature: AC-0 For more information about Hep-2 cell patterns use ANApatterns.org, the official website for the International Consensus on Antinuclear Antibody (FLORINA) Patterns (ICAP).Performed By: #### BMP #### [facility] [address] [place] [address] Dr. Arianna Lafleur URINEon 75-25-4926BVJOOSJ URINEIsolate 1 Escherichia coli >100,000 cfu/mL of [...] <=16 S C Trimethoprim/Sulfamethoxazole <=20 S CNormalThe [facility] HospitalComment on above:Performed By: #### CBC #### [facility] [address] [place] [address] Dr. Arianna HamlinANTISTREPTOLYSIN O AB (ASO)on 36-88-2507Anywpqlgcgsfpaqs O Ab45.8 IU/mLNormal0.0-200.0The [facility] HospitalComment on above:Performed By: #### CBC #### [facility] [address] [place] [address] Dr. Arianna HamlinRHEUMATOID FACTORon 28-76-2464ZJ Latex Turbid.<10.0Normal<14.0The [facility] HospitalComment on above:Performed By: #### BMP #### [facility] [address] [place] [address] Dr. Arianna HamlinCRClement 00-11-4191AJV [Mass/Vol]mg/LNormal<=1.0The [facility] HospitalComment on above:Performed By: #### CBC #### [facility] [address] [address] [address] Arianna Yee RANDOM W/MICROSCOPICon 57-03-8527JNQTKRNAVRHOIVhllcdteWQGH SEENThe [facility] CenterComment on above:Performed By: #### UAMIC #### [facility] [address] [address] [address] Arianna HamlinBilirubin Ql (U)NegativeNormalNEGATIVEUniversity Hospitals Tri[facility] Center on above:Performed By: #### UAMIC #### [facility] [address] [address] [address] Arianna HamlinCASTNONE SEENNormalNONE SEENThe [facility] CenterComment on above:Performed By: #### UAMIC #### [facility] [address] [place] [address] Dr. Arianna HamlinClarity (U)CLEARNormalCLEARThe [facility] CenterComment on above: Performed By: #### UAMIC #### [facility] [address] [place] [address] Dr. Arianna Kendalllor (U)LT. YELLOWNormalYDayton Children's HospitalComment on above:Performed By: #### UAMIC #### [facility] [address] [address] [address] Arianna HamlinCrystals LM Nom (Urine sed)NONE SEENNormalNONE SEENThe [facility] CenterComment on above:Performed By: #### UAMIC #### [facility] [address] [address] [address] Keller ChangEpithelial cells LM Ql (Urine sed)FEWAbnormalNONE SEEN /RAREThe [facility] Medical CenterComment on above:Performed By: #### UAMIC #### [facility] [address] [place] [address] Dr. Arianna HamlinGlucose Ql (U)NegativeNormalNEGATIVEThe [facility] CenterComment on above:Performed By: #### UAMIC #### [facility] [address] [place] [address] Dr. Arianna HamlinHemoglobin Ql (U)SMALLAbnormalNEGATIVEThe [facility] Comment on above:Performed By: #### UAMIC #### [facility] [address] [place] [address] Dr. Arianna Sargent Ql (U)TRACEAbnormalNEGATIVEThe [facility] CenterComment on above:Performed By: #### UAMIC #### [facility] [address] [place] [address] Dr. Arianna HamlinLEUKOCYTESMODERATEAbnormalNEGATIVEThe [facility] CenterComment on above:Performed By: #### UAMIC #### [facility] [address] [place] [address] Dr. Arianna SanchezCOUSYUE SEENNormalNONE SEENThe [facility] CenterComment on above:Performed By: #### UAMIC #### [facility] [address] [place] [address] Dr. Arianna Bolanos Ql (U)PositiveAbnormalNEGPomerene Hospital Comment on above:Performed By: #### UAMIC #### [facility] [address] [place] [address] Dr. Arianna HamlinpH (U)6.0 [pH]Normal5-9The [facility] CenterComment on above: Performed By: #### UAMIC #### [facility] [address] [place] [address] Dr. Arianna HamlinIkzadPHJ5-4Lyfzdchz8-0Zjf Bellevue HospitalComment on above:Performed By: #### UAMIC #### [facility] [address] [place] [address] Dr. Arianna HamlinSPEC GRAVITY>=1.823Nkxixuhv0.005-<=1.025The [facility] Comment on above:Performed By: #### UAMIC #### [facility] [address] [place] [address] Dr. Arianna Yee PROTEINNegativeDeltaNEGUNC HEALTH PARDEE/ TRACEThe [facility] Comment on above:Performed By: #### UAMIC #### [facility] [address] [place] [address] Dr. Yilan ChangUrobilinogen Qn (U)0.2 {Ayden'U}/dLNormal0.2 - 1.0The [facility] HospitalComment on above:Performed By: #### UAMIC #### [facility] [address] [place] [address] Dr. Arianna HamlinSmgxfAOW24-83LhkkfdwmGXBF SEENThe [facility] HospitalComment on above: Performed By: #### UAMIC #### [facility] [address] [place] [address] Dr. Arianna HamlinURIC ACID SERUMon 58-29-3520Vhulf [Mass/Vol]4.1 mg/dLNormal 2.6-6.0The [facility] HospitalComment on above:Performed By: #### URIC, CRP #### [facility] [address] [place] [address] Dr. Arianna HamlinCBC AUTO DIFFon 41-79-1744EOSP #0.1 103/ulNormal0.0-0.1The [facility] HospitalComment on above:Performed By: #### CBC #### [facility] [address] [place] [address] Dr. Arianna HamlinBasophils/100 WBC (Bld)0.9 %Normal0.2-2.0The [facility] Comment on above:Performed By: #### CBC #### [facility] [address] [place] [address] Dr. Arianna Salamanca #0.1 103/ulNormal0.0-0.7The [facility] HospitalComment on above: Performed By: #### CBC #### [facility] [address] [place] [address] Dr. Arianna Pérezosinophils/100 WBC (Bld)2.2 %Normal0.9-7.0The [facility] Comment on above:Performed By: #### CBC #### [facility] [address] [place] [address] Dr. Arianna Pérezrythrocyte distribution width (RBC) [Ratio]12.7 %Rasgxm56.0-15.0 The [facility] HospitalComment on above:Performed By: #### CBC #### [facility] [address] [address] [address] Arianna HamlinHematocrit (Bld) [Volume fraction]42.6 %Jiqfnl21.0-48.0The [facility] HospitalComment on above:Performed By: #### CBC #### [facility] [address] [place] [address] Dr. Arianna HamlinHemoglobin (Bld) [Mass/Vol]14.2 g/pEGxzlzd09.0-16.0The [facility] HospitalComment on above:Performed By: #### CBC #### [facility] [address] [place] [address] Dr. Arianna Quezada #0.02 10e3/ulNormal0.00-0.03The [facility] HospitalComp[facility] on above:Performed By: #### CBC #### [facility] [address] [place] [address] Dr. Arianna Quezada %0.4 %Normal0.0-0.5The [facility] HospitalComment on above: Performed By: #### CBC #### [facility] [address] [place] [address] Dr. Arianna Gonzalez #2.0 103/ulNormal1.2-3.8The [facility] HospitalComp[facility] on above:Performed By: #### CBC #### [facility] [address] [place] [address] Dr. Arianna Crandallmphocytes/100 WBC (Bld)38.1 %Lbfboo32.5-60.0The [facility] HospitalComment on above:Performed By: #### CBC #### [facility] [address] [place] [address] Dr. Arianna NicholsUAL DIFF REQNONormalThe [facility] HospitalComment on above: Performed By: #### CBC #### [facility] [address] [place] [address] Dr. Arianna Jones (RBC) [Entitic mass]28.1 kbVwbjrt18.7-34.0The [facility] HospitalComment on above:Performed By: #### CBC #### [facility] [address] [place] [address] Dr. Arianna Serrano (RBC) [Mass/Vol]33.3 g/qFWfydty81.9-35.2The [facility] HospitalComment on above:Performed By: #### CBC #### [facility] [address] [place] [address] Dr. Arianna SerranoV (RBC) [Entitic vol]84.4 bQAsfgvq76.0-99.0The [facility] HospitalComment on above:Performed By: #### CBC #### [facility] [address] [place] [address] Dr. Arianna Carpenter #0.4 103/ulNormal0.3-0.8The [facility] HospitalComment on above:Performed By: #### CBC #### [facility] [address] [place] [address] Dr. Arianna Avilaocytes/100 WBC (Bld)7.3 %Normal1.7-12.0The [facility] Comment on above:Performed By: #### CBC #### [facility] [address] [place] [address] Dr. Arianna March #2.7 103/ulNormal1.4-6.5The [facility] HospitalComment on above:Performed By: #### CBC #### [facility] [address] [place] [address] Dr. Arianna Khanutrophils/100 WBC (Bld)51.1 %Tzjhkn70.0-75.0The [facility] HospitalComment on above:Performed By: #### CBC #### [facility] [address] [place] [address] Dr. Arianna Campbelllet mean volume (Bld) [Entitic vol]9.8 fLNormal9.5-13.5The [facility] HospitalComment on above:Performed By: #### CBC #### [facility] [address] [place] [address] Dr. Arianna HamlinPLT276 103/crDznhhe238-351Hdx [facility] HospitalComment on above: Performed By: #### CBC #### [facility] [address] [place] [address] Dr. Arianna HamlinRBC5.05 106/ulNormal4.20-5.40The [facility] HospitalComment on above:Performed By: #### CBC #### [facility] [address] [place] [address] Dr. Arianna HamlinWBC5.4 103/ulNormal4.0-11.0The [facility] HospitalComment on above: Performed By: #### CBC #### [facility] [address] [place] [address] Dr. Arianna Oleary 14(COMP METB)on 55-75-8818Tshnzbw [Mass/Vol]4.2 g/dLNormal 3.4-5.0The [facility] HospitalComment on above:Performed By: #### BMP #### [facility] [address] [place] [address] Dr. Arianna HamlinAlbumin/Globulin [Mass ratio]1.3 {ratio}NormalThe [facility] HospitalComment on above:Performed By: #### BMP #### [facility] [address] [place] [address] Dr. Arianna Wylie [Catalytic activity/Vol]92 U/BUyftxg92-669Xeh [facility] HospitalComment on above:Performed By: #### BMP #### [facility] [address] [place] [address] Dr. Arianna Frazier [Catalytic activity/Vol]25 U/UTpqavj12-02Bgh [facility] HospitalComment on above:Performed By: #### BMP #### [facility] [address] [place] [address] Dr. Arianna Drummond gap [Moles/Vol]10.4 mmol/LNormalThe [facility] on above:Performed By: #### BMP #### [facility] [address] [place] [address] Dr. Arianna Copeland [Catalytic activity/Vol]20 U/NZxwxfz03-05Raf [facility] HospitalComment on above:Performed By: #### BMP #### [facility] [address] [address] [address] Arianna HamlinBilirubin [Mass/Vol]0.2 mg/dLNormal0.2-1.0[facility] Comment on above:Performed By: #### BMP #### [facility] [address] [address] [address] Arianna HamlinCalcium [Mass/Vol]9.0 mg/dLNormal8.5-10.1[facility] Comment on above:Performed By: #### BMP #### [facility] [address] [address] [address] Arianna HamlinChloride [Moles/Vol]103 mmol/BGiecib27-287TlzThe [facility] Comment on above:Performed By: #### BMP #### [facility] [address] [address] [address] Arianna HamlinCO2 [Moles/Vol]29.7 mmol/WAobpxs82.0-32.0The [facility] Comment on above:Performed By: #### BMP #### [facility] [address] [address] [address] Arianna HamlinCreatinine [Mass/Vol]0.87 mg/dLNormal0.55-1.02The [facility] HospitalComment on above:Performed By: #### BMP #### [facility] [address] [address] [address] Arianna PérezGFR-AF ALBANIAN>60Normal>=60The [facility] HospitalComment on above:Performed By: #### BMP #### [facility] [address] [address] [address] Arianna PérezGFR-NON AF ALBANIAN>60Normal>=60The [facility] HospitalComment on above:Performed By: #### BMP #### [facility] [address] [address] [address] Arianna HamlinGlobulin (S) [Mass/Vol]3.3 g/dLNormalThe Plains HospitalComment on above:Performed By: #### BMP #### [facility] [address] [address] [address] Arianna HamlinGlucose [Mass/Vol]99 mg/tOPozfap21-811VtnThe [facility] Comment on above:Performed By: #### BMP #### [facility] [address] [address] [address] Arianna HamlinPotassium [Moles/Vol]4.1 mmol/LNormal3.5-5.1The [facility] Comment on above:Performed By: #### BMP #### [facility] [address] [address] [address] Arianna HamlinProtein [Mass/Vol]7.5 g/dLNormal6.4-8.2[facility] Comment on above:Performed By: #### BMP #### [facility] [address] [address] [address] Arianna HamlinSodium [Moles/Vol]139 mmol/SRlrgoe340-080Rhn [facility] Comment on above:Performed By: #### BMP #### [facility] [address] [address] [address] Arianna HamlinUrea nitrogen [Mass/Vol]11.0 mg/dLNormal7.0-18.0The [facility] HospitalComment on above:Performed By: #### BMP #### [facility] [address] [address] [address] Arianna HamlinUrea nitrogen/Creatinine [Mass ratio]12.6 mg/mgNormalThe [facility] HospitalComment on above:Performed By: #### BMP #### [facility] [address] [address] [address] Arianna HamlinProvider Letteron [phone] Letter September 06, 2021 [address]O [address] [place] [phone] SIMIN CARO 1970 Dear Simin_ , We have been trying to reach you with no success. It is important that you return our call regarding your referral from Melinda Valentina _ upon receiving this letter. Also, at the time of your call, pleaseprovide us with your correct phone number. . Thank you for your prompt attention to this matter. Sincerely, General Surgery [phone] Children's Medical CenterPhysician Referralon 08-25-2021 Physician [id number]#1.00CD:127[facility] Vital Signs Date TimeVital SignValuePerforming RrguqsprcQqapltdc88-24-1753 10:50-0500Body ipfdowglrag30.4 [degF][facility]02-18-2025 10:50-0500 Diastolic blood yqsmtkmg72 mm[Hg][facility]02-18-2025 10:50-0500Heart rate70 /[facility]02-18-2025 10:50-0500Respiratory rate12 /[facility]02-18-2025 10:50-8265YhB4% (BldA) [Mass fraction]100 %[facility] 09-16-2024 10:50-0500Systolic blood yvjmqzli849 mm[Hg][facility]02-18-2025 10:30-0500Inhaled oxygen flow rate2 L/[facility]02-18-2025 06:00-0500Body .75 cmR[facility]02-18-2025 06:00-0500Body osmljf903 kgR[facility]02-03-2025 11:02-0500Body muiwbz211.02 cmR[facility] 09-01-2024 11:02-0500Body mass index (BMI) [Ratio]37.7 kg/o5KtholptimR[facility]ide [facility] Hospital02-03-2025 11:02-0500Body uysbjr20.61 kgR[facility]ide [facility] Hospital07-08-2022 12:15-0400Body bnmebr795.02 cmJuin Colette Other [facility] [employer] Other 07-08-2022 12:15-0400Body mass index (BMI) [Ratio] 36.13 kg/d8Tvvexg Colette Other [employer] Other 07-08-2022 12:15-0400Body emketh39.53 kgJustin Colette Other [employer] Other 07-01-2022 09:00-0400Body oatntz326.02 cmJustin Colette Other [employer] Other 07-01-2022 09:00-0400Body mass index (BMI) [Ratio] 36.13 kg/e4Wztsrc Colette Other [employer] Other 07-01-2022 09:00-0400Body hmduqa87.53 kgJustin Colette Other [employer] Other 04-04-2022 16:30-0400Body iexfcn082.02 cmJustin Colette Other [employer] Other 04-04-2022 16:30-0400Body mass index (BMI) [Ratio] 37.02 kg/v4Vuyusm Colette Other [employer] Other 04-04-2022 16:30-0400Body wlqyho53.8 kgJustin Colette Other [employer] Other Encounters Encounter DateEncounter TypeCare ProviderFacilityStart: 03-11-2025 End: 15-62-0609Tzveuai encounter procedureJustin Michelle Alvarenga [facility] Work Phone: Start: 03-11-2025 End: 89-96-9840ieetfhkgisUxcrbv Sue Cramer SENIOR CLIMATE ADVISORMisty Work Phone: [facility] Work Phone: Start: 12-10-2024 End: 58-92-6573jncgwjqkkdDylalf Cheryl Valentina SENIOR CLIMATE ADVISOR-C Work Phone: [facility] Work Phone: Start: 12-10-2024 End: 44-17-3363Vewvele encounter procedureBkmichelle Valentina SENIOR CLIMATE ADVISOR-C Work Phone: [facility] Work Phone: Start: 10-29-2024 End: 03-65-5015wjmfljkagrZGO [facility] Work Phone: Start: 10-29-2024 End: 76-45-5532Khwuouo encounter procedureUn[facility] Work Phone: Start: 10-01-2024 End: 46-35-9425ngtcvchjpvFSX [facility] Work Phone: Start: 10-01-2024 End: 16-45-7332Kbhmiej encounter procedureUn[facility] Work Phone: Start: 09-16-2024 End: 61-93-7477Husjnvxvb to same day surgery [facility]: 09-16-2024 End: 15-82-2939qjzzxlfhgvJSV [facility] Work Phone: Start: 31-77-9050Cyl-patient / Non-visitUn[facility] Work Phone: Start: 09-10-2024 End: 20-56-0817Tocwjjk encounter procedureUn[facility] Work Phone: Start: 09-10-2024 End: 48-10-7593Jelqniztej [facility]Physical Therapy [place]Start: 43-20-2580Demorbhwao [facility]tr-Physical Therapy [place] CreekStart: 09-10-2024 End: 24-51-5446usnegoqyqvIZI [facility] Work Phone: Start: 65-18-5588Zdzpzsqpw for other preprocedural examinationJustin Michelle [facility] GroupStart: 09-04-2024 End: 40-22-5213Njcrslz encounter procedureSt. [facility] M[facility]-Lki-Biyproif Testing Work Phone: Start: 09-04-2024 End: 43-12-8586zrghbwtbytJNT [facility] Work Phone: Start: 40-39-1062Yzjbwwupg for preprocedural laboratory examinationJustin Michelle [facility] GroupStart: 09-01-2024 End: 80-73-4520asvmegwurzNHQ [facility] Work Phone: Start: 09-01-2024 End: 60-02-0123Vysfiur encounter procedureC[facility] Work Phone: Start: 12-19-2022 End: 72-65-0873yodgtgnadiVXXFLH CRAMERFacility:U4Wkhpc: 59-16-0496orcnfrjgcc SARAH CRAMERFacility:A1Nodjs: 11-08-2022 End: 09-50-9044rerrkyoxkoHT NONE LISTED REQUESTFacility:W5Uxost: 10-18-2022 End: 87-31-6794bjxngdmlweXL NONE LISTED REQUESTFacility:D9Zvajz: 09-28-2022 End: 81-46-3069glbbrgpsbxSSPXKYLJ CULLENFacility:K4Iibrg: 09-23-2022 End: 12-85-3116pqotdkwiddWO NONE LISTED REQUESTFacility:X5Qlcem: 09-07-2022 End: 83-22-1470khkfwifcriLACKMOYV CULLENFacility:C5Quabh: 08-14-2022 End: 86-42-8234uksgxdiblfJG NONE LISTED REQUESTFacility:B0Alkag: 08-10-2022 Encounter for preprocedural laboratory examinationPESt. Rita's Hospitaltart: 14-54-1274hqtdkhslmhMQCEFA CRAMERFacility:J2Wimch: 08-08-2022 End: 95-66-5468yqssucgndwONFGOE CRAMERFacility:Q1Ukpij: 08-08-2022 End: 57-45-4361Bsqdrjkdj for preprocedural laboratory examinationPAMELA VALENTINA Facility:N8Irchg: 07-05-2022 End: 95-89-3468wocfbvjbecMTNNWM CRAMERFacility:X3Fqdtm: 07-01-2022 End: 38-46-6873xlyqjyrgjsRJEDBC CRAMERFacility:D3Ciyqz: 06-28-2022 End: 39-06-0327dddomhfagtSSYPSD CRAMERFacility:Q8Ufbkh: 06-20-2022 End: 74-59-2370ovcmmhwxsaWWUKJS CRAMERFacility:S3Aiqlx: 06-14-2022 End: 99-47-4015mvunzblfhwFHPQDV CRAMERFacility:I6Sbsof: 10-83-8593ormftawkyq SARAH CRAMERFacility:Y4Fpbwz: 05-17-2022 End: 33-79-6009seztoiuypuMKKRLI CRAMERFacility:T1Uyozt: 05-15-2022 End: 51-69-5546pcjcysfqekASZRYV CRAMERFacility:H2Bzdjq: 05-08-2022 End: 51-36-6561wysyjvtponKCAHEA CRAMERFacility:J6Ycyun: 32-26-6739elmldfrmwb SARAH CRAMERFacility:F9Ywwdb: 89-89-8723tcsfketvhgZCDUEQ CRAMERFacility:H1 Start: 02-03-2022 End: 11-69-4096ytjxarscqvZgwasu Kelley Other [employer] Other Start: 68-84-0888Nvvbku follow up visit related to original pxLucíastbecky OseiG [facility] OrthopedicsStart: 01-27-2022 End: 50-77-0234qotrarufbnNhblru Kelley Other [employer] Other Start: 53-68-0414Orepqj outpatient visit 15 minutes Grant AlvarengaDEONNA [facility] OrthopedicsStart: 01-24-2022 End: 78-35-1529hxiuaduxsrOYDKFC KELLEYFacility:W2Spmic: 10-31-2021 End: 06-22-3976zovkgelbizYvuypt Colette Other [place] [employer] Other Start: 08-86-0990Nskvfi outpatient new 45 minutes Grant KelyasmanyDEONNA [facility] Procedures DateProcedureProcedure DetailPerforming ClinicianStart: 53-53-2519D-ray of left knee, three viewsSarah Montgomery NP-C Work Phone: Start: 12-85-3646I-ray of left knee, two viewsStart: 06-77-3845Tizaw replacement of left knee jointStart: 36-47-5880O-ray of left knee, three views Plan of Treatment DateCare ActivityDetailAuthorStart: 40-52-4988W-ray of left knee, three viewsXR knee LT 3V - NOT FOR ER USEUniversity Hospitals Samaritan Medical Centertart: 23-06-4709GK Knee - left 3 ViewsUniversity Hospitals Samaritan Medical Centertart: 63-91-5829H-ray of left knee, two viewsXR knee LT 2VUniversity Hospitals Samaritan Medical Centertart: 26-25-2549TD Knee - left 2 ViewsUniversity Hospitals Samaritan Medical Centertart: 09-16-2024 End: 09-16-9179YhdlenqypSt. Vincent Hospital CenterStart: 22-35-1443ZvohauufoSt. Vincent Hospital CenterStart: 21-64-2605Voplwsgs admissionUniversity Hospitals Samaritan Medical Centertart: 13-91-6769Sgjesphs therapy procedureUniversity Hospitals Samaritan Medical Centertart: 83-40-2806Txgqprcu to occupational therapistUniversity Hospitals Samaritan Medical Centertart: 75-83-5563V-ray of left knee, three viewsXR knee LT 3V - NOT FOR ER USEUniversity Hospitals Samaritan Medical Centertart: 19-92-2238KN Knee - left 3 ViewsRiverside Methodist HospitalAnion gap measurementRiverside Methodist HospitalBasophils [#/volume] in Blood by Automated [facility] CenterBasophils/100 leukocytes in Blood by Automated count [facility] HospitalEosinophils/100 leukocytes in Blood by Automated [facility] CenterErythrocyte distribution width [Ratio] by Automated [facility] CenterErythrocytes [#/volume] in BloodRiverside Methodist HospitalHematocrit [Volume Fraction] of [facility] CenterHemoglobin [Mass/volume] in Blood [facility] HospitalLeukocytes [#/volume] corrected for nucleated erythrocytes in Blood by Automated counRiverside Methodist Hospital Leukocytes [#/volume] in BloodRiverside Methodist HospitalLymphocytes [#/volume] in Blood by Automated countRiverside Methodist Hospital Lymphocytes/100 leukocytes in Blood by Automated [facility] CenterMCH [Entitic mass] by Automated [facility] MCHC [Mass/volume] by Automated countRiverside Methodist HospitalMCV [Entitic volume] by Automated [facility] CenterMonocytes [#/volume] in Blood by Automated [facility] Monocytes/100 leukocytes in Blood by Automated [facility] CenterNeutrophils [#/volume] in Blood by Automated [facility] CenterNeutrophils/100 leukocytes in Blood by Automated [facility] CenterNucleated erythrocytes [Presence] in Blood by Automated [facility] CenterPatient EducationKnow your [facility] Work Phone: Patient referralSt. Vincent Hospital Ctr Work Phone: Platelet mean volume [Entitic volume] in Blood by Automated [facility] CenterPlatelets [#/volume] in Blood [facility] Immunizations Immunization DateImmunizationNotesCare OuprwhczTgejsljy65-85-6667jvuqcdskx, injectable, quadrivalent, preservative freeJustin Colette Other [facility]06-05-2021COVID-19 Vaccine Yari - Documentation Purposes OnlyJustbecky Alvarenga Other [facility] Payers DatePayer CategoryPayerPolicy [id number] 2.840.1.522242.3.57[id number] 2.0.1.974327.3.57[id number] 2.0.1.053195.3.57[id number] 2.0.1.320884.3.57[id number] 2.840.1.548243.3.57[id number] 2.0.1.523126.3.57[id number] 2.0.1.412777.3.579.[id number] 2.0.1.481563.3.579.[id number] 2.840.1.683289.3.57[id number] 2.0.1.464962.3.57[id number] 2.0.1.257682.3.57[id number] 2.840.1.241190.3.57[id number] 2.16.840.1.584550.3.57[id number] 2..0.1.903987.3.579.2.65670-75-5885Faombrh3742260 2..840.1.219517.3.579.[id number] 2.0.1.419043.3.579.[id number] 2.0.1.074230.3.579.[id number] 2.0.1.758654.3.57[id number] 2.0.1.035410.3.579.2.72452-88-0976Yzjsagm6395870 2.0.1.740595.3.579.2.63542-06-7420Rmrzwec7447961 2..1.267844.3.579.2.11384-99-9062Qvzghjg3078019 2.0.1.763767.3.579.2.58625-89-5336LazrTsaile Health [id number] 2.0.2.530524.44734137-58-7797Lels-[id number] 2.840.1.0683[id number] 2.16840.1.974453.3.579.2.531 [id number] 2.16840.1.23329[id number] 2.16840.1.006824.3.579.2.732Yxuywjj61344417 2.840.1.625363.3.579.2.531 Social History DateTypeDetailFacilitySex Assigned At [facility] [employer] Other Tobacco smoking status NHISUnknown if ever smoked [facility] Work Phone: Start: 09-01-2024 End: 08-63-8507VrnAbixhi (finding)[facility] Centertart: 42-82-1001Xuy Assigned At [facility]: 09-04-2024 End: 31-22-7772Fmlegde smoking status NHISEx-smoker (finding)[facility] Medical Equipment Procedure CodeEquipment CodeEquipment Original TextEquipment IdentifierDates Arthroplasty, knee, total, minimally invasiveTibial insert ()[id number] FDAStart: 00-97-6541Zpwkqccshkis, knee, total, minimally invasiveCoated knee femur prosthesis ()[id number] FDAStart: 23-12-0195Usyndcfxnndj, knee, total, minimally invasiveCoated knee tibia prosthesis ()[id number] FDAStart: 09-16-2024 Goals DatePatient GoalDesired Activity/State Clinical Notes 10-31-2021 to 03-11-2025 Note Date & HormEtdpOujauffm63-47-4956 Evaluation note* Diagnosis Onset Date Resolution Status Admit Date Degenerative joint disease of left knee acuteAugust 2024 9:46amStatus post total left knee replacementacuteAugust 2024 9:46amTrigger finger, left middle fingeracuteAugust 2024 9:46am [facility] Work Phone: 1(968) 571-709403-05-2025 Evaluation note* Diagnosis Onset Date Resolution Status Admit Date Degenerative joint disease of left knee acuteMarch 2024 10:49amStatus post total left knee replacementacuteMarch 2024 10:49amDegenerative joint disease of left kneeacuteApril 2024 11:12amStatus post total left knee replacementacuteApril 2024 11:12am Degenerative joint disease of left kneeacuteMay 2024 1:43pmStatus post total left knee replacementacuteMay 2024 1:43pmTrigger finger, left middle fingeracuteMay 2024 1:43pm [facility] Work Phone: 1(217) 990-309602-03-2025 Evaluation note* Diagnosis Onset Date Resolution Status Admit Date Degenerative joint disease of left knee acuteFebruary 2024 10:34am [facility] Work Phone: 1(494) 220-495202-03-2025 Evaluation note* Diagnosis Onset Date Resolution Status Admit Date Degenerative joint disease of left knee acuteFebruary 2024 10:34amDegenerative joint disease of left kneeacute September 10, 2024 10:08am [facility] Work Phone: 1(813) 939-982902-03-2025 Evaluation note* Diagnosis Onset Date Resolution Status Admit Date Degenerative joint disease of left knee acuteFebruary 2024 10:34amDegenerative joint disease of left kneeacute September 10, 2024 10:08amDegenerative joint disease of left kneeacuteMarch 2024 10:49amStatus post total left knee replacementacuteMarch 2024 10:49am [facility] Work Phone: 1([phone]) 880-814502-03-2025 Evaluation note* Diagnosis Onset Date Resolution Status Admit Date Degenerative joint disease of left knee acuteFebruary 2024 10:34amDegenerative joint disease of left kneeacute September 10, 2024 10:08amDegenerative joint disease of left kneeacuteMarch 2024 10:49amStatus post total left knee replacementacuteMarch 2024 10:49amDegenerative joint disease of left kneeacuteApril 2024 11:12amStatus post total left knee replacementacuteApril 2024 11:12am [facility] Work Phone: 1([phone]) 337-850705-23-2023 NotePROCEDURE: XR FOOT RT MIN 3 VIEWS [...] authenticated by: LARISSA CHOI Date: 2022-12-19 11:40[facility] [id number] NotePROCEDURE: XR FOOT RT MIN 3 VIEWS [...] authenticated by: TERI KAY Date: 2022-10-19 08:47[facility] [id number] NotePROCEDURE: XR FOOT RT MIN 3 VIEWS [...] Electronically authenticated by: BARBARA HERNANDEZ Date: 2022-09-28 16:30[facility]02-10-2023 NotePROCEDURE: XR FOOT RT MIN [...] Electronically authenticated by: TERI KAY Date: 2022-09-08 07:03[facility]01-17-2023 NotePROCEDURE: XR FOOT RT MIN [...] Electronically authenticated by: BARBARA HERNANDEZ Date: 2022-08-15 08:58[facility]01-17-2023 NotePROCEDURE: XR FOOT RT MIN [...] Electronically authenticated by: BARBARA HERNANDEZ Date: 2022-08-15 08:58[facility]11-17-2022 NotePROCEDURE: XR FOOT RT MIN 3 VIEWS COMPARISON: 09/08/2021 HISTORY: Pain in right foot FINDINGS: BONES:No acute fracture or dislocation. Stable [id number] degenerative change with joint space narrowing marginal osteophyte formation most significant in the midfoot SOFT TISSUES:Negative. No visible soft tissue swelling. EFFUSION:None visible. OTHER: Negative. IMPRESSION: Stable degenerative changes Electronically authenticated by: BARBARA HERNANDEZ Date: 2022-06-15 08:48[facility]07-08-2022 Evaluation note* Encounter Date Diagnosis [...] (ICD-10 - M65.331)Currently resolved. Continue to monitor [employer] Other 07-01-2022 Evaluation note* Encounter Date Diagnosis [...] as documented in the electronic medical record. [employer] Other 06-30-2022 History general Narrative - Reported* Type Description Date Medical History Hypertension Medical Historychronic depressionMedical Historyhearing lossSurgical History [id number] Historyleft carpal tunnel release by Dr. Alvarenga 01/26/[address] [facility] [employer] Other 04-04-2022 Evaluation note* Encounter Date Diagnosis [...] of pinch strength in approximately 6 weeks, cullet crusher and washer strength recovery at about 12 weeks, and [...] poor healing. I have advised against the prison use of narcotic pain medication. I have [...] as documented in the electronic medical record. [employer] Other Evaluation note* Diagnosis Onset Date Resolution Status Admit Date Degenerative joint disease of left knee acuteFebruary 2024 10:34am [facility] Work Phone: Evaluation note* Diagnosis Onset Date Resolution Status Admit Date Degenerative joint disease of left knee acuteAugust 2024 9:46amStatus post total left knee replacementacuteAugust 2024 9:46amTrigger finger, left middle fingeracuteAugust 2024 9:46am [facility] Work Phone: History general Narrative - Reported* Type Description Date Medical History Hypertension Medical Historychronic depressionMedical Historyhearing lossSurgical History [id number] [employer] Other Hospital Discharge instructions Additional Instructions Joint Replacement Discharge Instructions: Your safety during your recovery process is important to us. Please seek immediate emergency care if you have sudden chest pain or shortness of breath. Additionally, please call our office at [phone] should any of the following occur: wound [...] and/or laxatives as directed. You may take ltgl-wud-rqfmvst Benadryl if itching occurs without a rash or hives. Icing and elevation will help relieve pain as well, do not underestimate the power of ice and elevation. We do recommend that you stop taking narcotic pain medications by 4-6 weeks after surgery and if necessary, continue to use anti-inflammatory medications such as Mobic (meloxicam), Celebrex (celecoxib), or an mygd-cac-ouvddxy medication (Aleve, Motrin, Ibuprofen, etc). Driving an [...] feel free to call our office at [phone]. You are a priority of ours and we will not be upset with you if you call. We would much rather you call to confirm aspects of your recovery process as opposed to possibly hindering your recovery with inappropriate care. We are committed to providing you with the best care possible. Dr. Grant Alvarenga [facility] [address] [place] [address] [email or web address] [facility] Work Phone: Reason for referral (narrative)No reason for referral information availableMet[facility] Work Phone: Summary Purpose Family History No [...] Reason for Visit Chief Complaint Admit Date OP/SENIOR CLIMATE ADVISOR LEFT KNEE PAIN NX September 01 10:34am M25.562 - Pain in left knee August 10:38am Reason for Visit Admit Date Degenerative joint disease of left knee September 01, 2024 10:34am Chief Complaint Admit Date OP/SENIOR CLIMATE ADVISOR LEFT KNEE PAIN NX September 01 10:34am M25.562 - Pain in left knee August 10:38am Knee Pain September 04, 2024 1 1:21am Chief Complaint Admit Date OP/SENIOR CLIMATE ADVISOR LEFT KNEE PAIN NX September 01 10:34am [...] 10, 2024 10:08am Chief Complaint Admit Date OP/SENIOR CLIMATE ADVISOR LEFT KNEE PAIN NX September 01 10:34am M25.562 - Pain in left knee August 10:38am Knee Pain September 04, 2024 1 1:21am Pre-Op LTK September 10, 2024 9:26am H & P LEFT TOTAL KNEE ARTHROPLASTY September 10, 2024 10:08am Knee Pain September 15, 2024 4:48pm Knee Pain September 16, 2024 5:43am Chief Complaint Admit Date OP/SENIOR CLIMATE ADVISOR LEFT KNEE PAIN NX September 01 10:34am [...] 01, 2024 10:49am Chief Complaint Admit Date OP/SENIOR CLIMATE ADVISOR LEFT KNEE PAIN NX September 01 10:34am [...] section and content) DATE CREATED AUTHOR 02/17/2022 [facility] DATE CREATED AUTHOR AUTHOR'S ORGANIZ ATION 01/05/2023 [facility] DATE CREATED AUTHOR AUTHOR'S ORGANIZ ATION 03/12/2025 [facility] Care Teams (unrecognized sec tion and content) Team Status: Active Member Role Status Dates Sarah Montgomery SENIOR CLIMATE ADVISOR-C Primary Care Provider Active Team Status: Inactive Member Role Status Dates Grant Alvarenga DO Attending Provider Active S tart: March 11, 2025 End: March 11, 2025Sarah Montgomery , SENIOR CLIMATE ADVISOR-CPrimary Care ProviderActiveStart: March 11, 2025 End: March 11, 2025 Team Status: Inactive Member Role Status Dates Sarah Montgomery SENIOR CLIMATE ADVISOR-C Primary Care Provider Active Start: March 11, 2025 End: March 11, 2025Jubryon Alvarenga DOAttending ProviderActiveStart: March 11, 2025 End: March 11, 2025 Team Status: Active Member Role Status Dates Grant Alvarenga DO Attending Provider, Other Provider Active Start: September 15, 2024 Sarah Montgomery SENIOR CLIMATE ADVISOR-CPrimary Care ProviderActiveStart: September 15, 2024 Team Status: Inactive Member Role Status Dates Grant Alvarenga DO Attending Provider Active S tart: September 16, 2024 End: September 16, 2024Sarah Montgomery , SENIOR CLIMATE ADVISOR-CPrimary Care ProviderActive Start: September 16, 2024 End: September 16, 2024 Team Status: Inactive Member Role Status Dates Grant Alvarenga DO Attending Provider Active S tart: October 01, 2024 End: October 01, 2024Pajose Montgomery , SENIOR CLIMATE ADVISOR-CPrimary Care ProviderActiveStart: October 01, 2024 End: October 01, 2024 Team Status: Inactive Member Role Status Dates Sarah Montgomery SENIOR CLIMATE ADVISOR-C Primary Care Provider Active Start: October 29, 2024 End: October 29, 2024Grant Alvarenga DOAttending ProviderActiveStart: October 29, 2024 End: October 29, 2024 Team Status: Inactive Member Role Status Dates Sarah Montgomery SENIOR CLIMATE ADVISOR-C Primary Care Provider Active Start: December 10, [...] 2024 End: September 04, 2024Sarah Montgomery , SENIOR CLIMATE ADVISOR-CPrimary Care ProviderActiveStart: September 04, 2024 End: September 04, 2024 Team Status: Active Member Role Status Mat Alvarenga DO Attending Provider Active S tart: September 10, 2024 Sarah Montgomery , SENIOR CLIMATE ADVISOR-CPrimary Care ProviderActiveStart: September 10, 2024 Team Status: Inactive Member Role Status Mat Alvarenga DO Attending Provider Active S tart: September 10, 2024 End: September 10, 2024Sarah Montgomery , SENIOR CLIMATE ADVISOR-CPrimary Care ProviderActive Start: September 10, 2024 End: September 10, 2024 Team Status: Active Member Role Status Mat Alvarenga DO Attending Provider Active S tart: March 11, 2025 Sarah Montgomery , SENIOR CLIMATE ADVISOR-CPrimary Care ProviderActiveStart: March 11, 2025 Goals (unrecognized [...] BE BASED ON THE PRIMARY CLINICAL RECORDS. [facility] [employer] [facility]. provides no warranty or guarantee of the accuracy or completeness of information in this document.
== END 2025-07-27 13:28 | disposition home or self-care (01) ==
LOC: LAB 13:29
PROVIDERS: PCP Nurse Practitioner Family; Visit Provider Internal Medicine Rheumatology
DX: M19.90 Unspecified osteoarthritis, unspecified site (principal); Z51.81 Encounter for therapeutic drug level monitoring; Z79.899 Other long term (current) drug therapy
CPT/HCPCS: 36415; 80053; 85025